=== PATIENT | male | born 1955 | race Caucasian/White ===

== ENCOUNTER 2020-03-28 15:24 | Emergency (ER) | payer OTHER, SELFPAY ==
[2020-03-28 15:25] VITALS: BP 144/94; PULSE 67; RESP 16; TEMP 36.3; O2SAT 97; BMI 31.7
--- NOTE | 2020-03-28 15:45 | ED.VIS.GEN ---
History of Present Illness Chief Complaint: Laceration Informant: Patient Narrative: Patient was cutting wood with a table saw when the piece of wood kicked back and struck him in the left forearm and abdomen. He notes laceration to the forearm and abrasion to the abdomen. Unknown last tetanus. Past Medical History - Allergies and Home Meds Allergies/Adverse Reactions: Allergies bee pollen Allergy (Verified 03/28/20 15:25) Swelling Primary Care Physician: Chema Gonzalez MD [Primary Care Provider] - Smoking Status: Current every day smoker Review of Systems General: Denies: Chills, Fever, Sweats Eyes: Denies: Visual changes - bilaterally, Diplopia ENT: Denies: Rhinorrhea, Sore throat Cardiovascular: Denies: Chest pain, Palpitations Respiratory: Denies: Dyspnea, Cough, Dyspnea on exertion Gastrointestinal: Denies: Abdominal pain, Nausea, Vomiting, Diarrhea, Melena, Hematochezia Genitourinary: Denies: Dysuria, Hematuria, Frequency Musculoskeletal: Reports: Extremity Pain. Denies: Back pain Skin: Reports: Wounds. Denies: Rash Neurological: Denies: Headache, Weakness, Numbness Physical Exam Vital Signs/Narrative: Vital Signs Temp Pulse Resp BP Pulse Ox 03/28/20 15:25 97.4 F L 67 16 144/94 H 97 Inital Vital Signs reviewed: Yes General: Well nourished, Well developed, No Acute Distress Head: Normocephalic, Atraumatic Eyes: Perrl, EOMI ENT: Moist mucous membranes, No rhinorrhea Neck: Supple, Nontender Cardiovascular: Regular rate, Regular rhythm, No murmurs Respiratory: No distress, CTA bilaterally, Chest nontender Abdomen: Soft, Nontender, Nondistended, Normal bowel sounds Back: Nontender, Normal Inspection Extremities: No edema, Tenderness - Mid forearm along the radius demonstrates a 5 cm hematoma with about a 5 cm skin tear. Painful range of motion. Skin: Normal color, No rash, Trauma - Superficial abrasion to the left abdomen. No pain with deep palpation. Neurological: Alert, Oriented x3, Cranial nerves II-XII grossly intact, Normal Strength, Normal Sensation Psychological: Normal affect, Normal Mood Diagnostic/Tx/Re-eval - Medical Decision Making X-rays were negative for fracture. Adacel was given. Wound was cleansed and dressed. Be discharged home with supportive care return if worsening or concerns ED Disposition - Plan for ED Patient: Disposition: Home or Assisted Living Diagnosis: Skin tear of forearm without complication, Traumatic hematoma of left forearm, Abdominal wall abrasion Instructions: ED AVULSION LACERATION Referrals: Chema Gonzalez MD [Primary Care Provider] - 1 Week if not improving
--- NOTE | 2020-03-28 15:50 | RAD_ITS ---
STUDY: X-RAY - LEFT RADIUS AND ULNA REASON FOR EXAM: Male, 64 years old. injury to left forearm. injury was from debris from table saw today. laceration is on posterior portion of forearm. TECHNIQUE: No view(s) of the forearm. COMPARISON: None. FINDINGS: No acute fracture or dislocation. Remote ununited ulnar styloid fracture. Joint spaces are well-maintained. There is marked dorsal soft tissue swelling. No demonstrated foreign body. RAD/Forearm 2 Views IMPRESSION: Soft tissue swelling, otherwise no acute findings. Remote ununited ulnar styloid fracture. Electronically Signed: Mary Jung MD at 16:30 EDT Tel , Service support ,
[2020-03-28] MEDS: Diphth,Pertuss(Acell),Tet Vac 0.5 ML Vial IM (16:00)
== END 2020-03-28 16:31 | disposition home or self-care (01) ==
PROVIDERS: Emergency Provider Emergency Medicine; PCP Family Medicine
DX: S51.812A Laceration without foreign body of left forearm, initial encounter (principal); S30.811A Abrasion of abdominal wall, initial encounter; W20.8XXA Other cause of strike by thrown, projected or falling object, initial encounter; Y93.89 Activity, other specified; Y92.9 Unspecified place or not applicable; Y99.9 Unspecified external cause status; Z23 Encounter for immunization; F17.200 Nicotine dependence, unspecified, uncomplicated
CPT/HCPCS: 73090; 90471; 90715; 99282

== ENCOUNTER 2020-05-16 20:54 | Emergency (ER) | payer OTHER, SELFPAY ==
[2020-05-16 20:55] VITALS: BP 130/83; PULSE 65; RESP 18; TEMP 36.8; O2SAT 97; BMI 33.5
[2020-05-16 21:01] VITALS: BP 130/83; PULSE 65; RESP 18; TEMP 36.8; O2SAT 97
--- NOTE | 2020-05-16 21:20 | RAD_ITS ---
STUDY: X-RAY CHEST REASON FOR EXAM: Male, 64 years old. Cough, lightheaded, dizzy. TECHNIQUE: 1 view COMPARISON: None. FINDINGS: The lungs are clear and expanded. There is no demonstrated pleural abnormality. Normal size heart. Normal mediastinum and marisela. Normal visualized pulmonary arteries. Mild plaque in elongation of the thoracic aorta. Degenerative changes of the thoracic spine with a mild dextrocurvature. Normal visualized ribs, clavicles, and shoulders. There is no demonstrated abnormality of the visualized soft tissue structures of the upper abdomen. RAD/Chest 1 View (Portable) IMPRESSION: No acute cardiopulmonary findings. Negative for consolidation, atelectasis, other infiltrates, pleural effusion or cardiomegaly. Electronically Signed: Chel Jennings MD at 22:56 EDT , Service support ,
[2020-05-16 21:31] LABS: Absolute Lymphocyte Count 1.66 X10^3/uL (0.83-4.51); Absolute Neutrophil Count 5.3 X10^3/uL (2.0-7.7); Basophil# 0.06 X10^3/uL; Basophil% 0.7 % (0-1); Eosinophil# 0.31 X10^3/uL; Eosinophils% 3.9 % (0-5); Hematocrit 47.5 % (40-54); Hemoglobin 15.2 g/dL (13.0-16.5); Lymphocyte # 1.66 X10^3/ul (4.0); Lymphocyte % 20.6 % (19-41); Mean Corpuscular Hgb 30.7 pg (27.0-32.0); Monocyte# 0.66 X10^3/uL; Monocyte% 8.2 % (0-10); NRBC Flagged by Analyzer 0 % (0-5); Neutrophil # 5.31 X10^3/uL (2.7-7.7); Neutrophil % 66.1 % (47-70); Platelet Count 244 K/mm3 (150-450); RBC Distribution Width CV 12.5 % (11.6-14.6); RBC Distribution Width SD 43.9 fl (35.1-43.9); Red Blood Count 4.95 M/mm3 (4.6-6.2)
--- NOTE | 2020-05-16 21:40 | ED.DCSUM_ITS ---
- ER Visit Summary Date of Service: 05/16/20 Chief Complaint: Dizziness History of Present Illness: The patient is a 64 M who presents with dizziness that has been getting worse over the past 9 days. Patient states he feels lightheaded and dizzy. Patient states he also feels weak and tired. Patient states he had a recent Covid test which was negative. Patient admits to a cough with some green sputum. Patient admits to some chest pain but denies any palpitations. Patient admits to some rhinorrhea. Patient denies any nausea or vomiting. Patient denies any fevers or chills. Physical Examination: Vital signs are stable. Patient is afebrile. Patient is in no acute distress. Oral mucosa is pink and moist. Neck is supple. Trachea is midline. There is no JVD noted. Heart was regular rate and rhythm. Lungs have mild rales in the bases. There is good respiratory effort noted. Abdomen is soft. Bowel sounds are normal. There is no tenderness. There is no rebound or guarding noted. Skin is warm dry. Cranial nerves II through XII are intact. There are no focal motor or sensory deficits noted. Extremities are intact. There is no calf tenderness or edema. Test Results: EKG showed normal sinus rhythm with a rate of 64. There are no ac nury ST or T wave changes. There are no prior EKGs available for comparison. Portable chest x-ray is obtained. There is no acute cardiopulmonary process. This was interpreted by the radiologist and reviewed by myself. CBC, comprehensive metabolic profile, troponin were obtained were all within normal limits. Emergency Department Course and Treatment: Patient was given IV fluids. Patient is feeling better on reevaluation. Patient was advised of his findings. Patient was instructed to follow-up with his primary care physician in 5 to 7 days. Patient was instructed to take Tylenol or ibuprofen as needed for pain or fever. Patient and family understood and were agreeable with the plan. All questions were answered. Disposition: Discharge home Impression: Viral illness This note was generated with [employer] dictation software. It may contain incorrect words, spelling, and punctuation that were not noted in review of the chart prior to signing ED Disposition - Plan for ED Patient: Disposition: Home or Assisted Living Diagnosis: Viral illness Instructions: ED Viral Syndrome Referrals: Chema Gonzalez MD [STAFF PHYSICIAN] - 5-7 Days
[2020-05-16] MEDS: 0.9% Normal Saline 1,000 ML 1000 ML IV (21:41)
[2020-05-16 21:49] LABS: ALB/GLOB Ratio 0.9 RATIO (0.9-2.4); AST(SGOT) 10 U/L (15-37); Alanine Aminotransfer ALT/SGPT 18 U/L (16-61); Albumin, Serum 3.5 g/dL (3.2-5.0); Alkaline Phosphatase 79 U/L (45-117); Anion Gap 3 (5-15); BUN 18 mg/dL (7-18); BUN/Creat Ratio 18.8 RATIO (10-20); Calcium,Total 8.9 mg/dL (8.5-10.1); Chloride 105 mmol/L (98-107); Creatinine, Serum 0.96 mg/dL (0.70-1.30); EST Glomerular Filtration Rate 84 mL/min (>60); Est Glom Filt Rate - Afr Amer 102 mL/min (>60); Estimated Creatinine Clearance 77.74 ml/min; Globulin 3.7 g/dL (2.2-4.2); Glucose 106 mg/dL (74-106); Potassium 3.4 mmol/L (3.5-5.1); Protein, Total 7.2 g/dL (6.4-8.2); Sodium Level 141 mmol/L (136-145)
[2020-05-16 21:50] LABS: Lactic Acid 1.4 mmol/L (0.4-1.9)
[2020-05-16 22:52] VITALS: BP 133/80; PULSE 55; RESP 18; O2SAT 96
[2020-05-16 23:19] VITALS: BP 139/89; PULSE 58; RESP 18; O2SAT 95
== END 2020-05-16 23:35 | disposition home or self-care (01) ==
PROVIDERS: Emergency Provider Emergency Medicine; PCP Family Medicine
DX: B34.9 Viral infection, unspecified (principal); R05 Cough; J34.89 Other specified disorders of nose and nasal sinuses; R07.9 Chest pain, unspecified; M54.2 Cervicalgia; R51.9 Headache, unspecified; E03.9 Hypothyroidism, unspecified; Z72.0 Tobacco use; Z79.899 Other long term (current) drug therapy
CPT/HCPCS: 71045; 80053; 83605; 84484; 85025; 87040; 93005; 96360; 99285; J7030; A4216

== ENCOUNTER 2021-11-02 16:01 | Emergency (ER) | payer MEDICARE, BC, SELFPAY ==
[2021-11-02 16:01] VITALS: BP 148/84; PULSE 67; RESP 14; TEMP 36.2; O2SAT 95; BMI 30.9
--- NOTE | 2021-11-02 16:31 | RAD_ITS ---
STUDY: XR Shoulder Min 2 Views REASON FOR EXAM: Male, 66 years old. PAIN TECHNIQUE: XR Shoulder Min 2 Views RIGHT COMPARISON: None. FINDINGS: Normal glenohumeral articulation. There is degenerative arthrosis of the acromioclavicular joint without inferior osseous spur formation. Normal acromion. Old healed distal clavicle fracture. Normal humeral head and visualized proximal humerus. The soft tissue structures are unremarkable. Normal visualized pulmonary apex. RAD/Shoulder min 2 Views IMPRESSION: There are no acute findings of the shoulder. Electronically Signed: Armin Parson MD at 16:55 EDT ,
--- NOTE | 2021-11-02 16:32 | EDS_ITS ---
HPI History of Present Illness Chief Complaint: Upper Extremity Injury Narrative Narrative: 66-year-old male presenting with right shoulder pain. He states he fell from about 3 feet high. He fell directly onto his right side. He states he has pain in the right shoulder and is having trouble moving it secondary to pain. He has distant history of right shoulder surgery. Patient denies head injury, LOC. He has no neck pain. [facility] Medical History High cholesterol Hypothyroidism Home Medications atorvastatin 20 mg PO QHS 05/16/20 [History Last Taken Unknown] levothyroxine 175 mcg PO DAILY 05/16/20 [History Last Taken Unknown] meloxicam 15 mg PO BID 05/16/20 [History Last Taken Unknown] Allergy/AdvReac Type Severity Reaction Status Date / Time bee pollen Allergy Swelling Verified 11/02/21 16:03 Social History Smoking Status: Current every day smoker tobacco type: cigarettes ROS ROS ED Constitutional Constitutional ED: Denies chills or fever(s) Eyes Eyes: Denies blurry vision or diplopia ENT ENT ED: Denies rhinorrhea or sore throat Cardiovascular Cardiovascular: Denies chest pain or palpitations Respiratory/Chest Respiratory/Chest: Denies cough or dyspnea Gastrointestinal Gastrointestinal: Denies abdominal pain, nausea or vomiting Genitourinary Genitourinary ED: Denies dysuria or hematuria Musculoskeletal Musculoskeletal: Reports other Details: Right shoulder pain ; Denies back pain or neck pain Integumentary Denies abscess or rash Neurologic Neurologic: Denies headache(s), paresthesias or weakness EXAM Physical Exam Const Vital Signs: 11/02/21 16:01 Temperature 97.2 F L Temperature Source Temporal Pulse Rate 67 Respiratory Rate 14 Blood Pressure 148/84 H Blood Pressure Mean 105 Pulse Ox 95 Oxygen Delivery Method Room Air Positive well nourished General Appearance ED: NAD HEENT normocephalic and atraumatic Eyes PERRL and EOMs intact bilaterally Neck full ROM and supple General: Negative for tenderness Chest Wall Chest Narrative: Tenderness palpation right upper chest wall adjacent to the right lateral. Resp normal respiratory effort and clear to auscultation bilaterally Cardio regular rate and regular rhythm Extremity Extremity Narrative: Tenderness palpation at the right AC joint. Right proximal humerus is nontender. There is no tenderness to the clavicle except for at the lateral abdomen. No skin tenting. Limited range of motion right shoulder secondary to pain. Neuro oriented x3 and CN's II-XII intact bilaterally Sensorium / Orientation: alert Psych mental status grossly normal Skin Lesions: no lesions Rashes: no rashes MDM MDM MDM Narrative Medical decision making narrative: 66-year-old male presenting with right shoulder pain after mechanical fall. He denies head injury or LOC. He states he has pain with movement of the right shoulder. I obtained x-rays of the right shoulder and on my interpretation there are no acute fractures or subluxation. I did also include imaging of the right clavicle and this is also without fracture. The radiologist does agree. Patient declined analgesia in the ER. Patient counseled that he does not have any acute fractures that are noted. He does not want any thing stronger than Tylenol or ibuprofen for pain. He is counseled to follow-up with his PCP to ensure resolution. He can return precautions. Impression: 1. Mechanical fall 2. Right shoulder contusion Discharge Plan Triage Chief Complaint: Upper Extremity Injury ED Provider: Nemesio Coreas Dx/Rx/DC Orders Instructions: ED Shoulder Sprain Prescriptions: No Action levothyroxine 175 MCG tablet 175 mcg PO DAILY RF: 0 atorvastatin 20 MG tablet 20 mg PO QHS RF: 0 meloxicam 15 MG tablet 15 mg PO BID RF: 0 Primary Care Provider: Onesimo Ramirez Referrals: Onesimo Ramirez MD [Primary Care Provider] - Disposition Disposition: Home, Self Care
--- NOTE | 2021-11-02 16:35 | RAD_ITS ---
EXAM: XR RIGHT CLAVICLE COMPLETE, 2 OR MORE VIEWS CLINICAL INDICATION: pain TECHNIQUE: Frontal and lordotic views of the right clavicle. This report was created using [employer] report generation technology. COMPARISON: None. FINDINGS: BONES/JOINTS: Healed right clavicle fracture. Degenerative arthrosis of the right acromioclavicular joint. No sclerotic or destructive changes observed. SOFT TISSUES: Unremarkable. No soft tissue swelling or gas. No radiopaque foreign body. RAD/Clavicle IMPRESSION: No acute findings. Electronically Signed: Armin Parson MD at 16:53 EDT Reading Location ID and State: [facility] / [place] , Service support ,
[2021-11-02 18:08] VITALS: BP 114/80; PULSE 60; RESP 18; TEMP 36.9; O2SAT 93
== END 2021-11-02 18:51 | disposition home or self-care (01) ==
PROVIDERS: Emergency Provider Student in an Organized Health Care Education/Training Program; PCP Family Medicine; Visit Provider Student in an Organized Health Care Education/Training Program
DX: S40.011A Contusion of right shoulder, initial encounter (principal); W17.89XA Other fall from one level to another, initial encounter; E78.00 Pure hypercholesterolemia, unspecified; E03.9 Hypothyroidism, unspecified; F17.210 Nicotine dependence, cigarettes, uncomplicated; Z79.1 Long term (current) use of non-steroidal anti-inflammatories (NSAID); Z79.890 Hormone replacement therapy
CPT/HCPCS: 73000; 73030; 99282

== ENCOUNTER 2025-02-22 20:10 | Emergency (ER) | payer MEDICARE, BC, SELFPAY ==
--- NOTE | 2025-02-22 | RAD_ITS ---
PROCEDURE: FINGER(S) MIN 2 VIEWS 02/22/2025 REASON FOR EXAM: SECOND FINGER, FALL, PAIN TECHNIQUE: FINGER(S) MIN 2 VIEWS Laterality: Right COMPARISON: No FINDINGS: Scattered osteoarthritis. 2nd digit soft tissue swelling. Acute dorsal dislocation, PIP joint. Suspected displaced fracture, base of middle phalange, volar plate. RAD/Finger(s) Min 2 Views IMPRESSION: 2nd digit PIP joint fracture-dislocation. Reading [facility]
[2025-02-22 20:11] VITALS: BP 135/86; PULSE 60; RESP 18; TEMP 36.2; O2SAT 97; BMI 30.8
--- OUTSIDE RECORDS SUMMARY | 2025-02-22 20:40 | XMS RPT_ITS | CCD ---
Author Organization [facility] Care Team Providers Care Mobile Service Rv Technician Name Role Phone Mark Ramirez MD Primary Care Provider Mark Ramirez MD Primary Care Provider Luz Mac RN Unavailable Unavailable Danna Gomez MD Unavailable Luz Mac RN Unavailable Unavailable Mark Ramirez MD Primary Care Provider [place] GEOGRAPHY DEPARTMENT CHAIR.Migdalia VARGAS Unavailable Edward GEOGRAPHY DEPARTMENT CHAIR.Vikram VARGAS Unavailable Elderbroludmila Referring Unavailable Elderbrock, Primary Care Unavailable Haider Stevens Attending Unavailable Luz Mac RN Unavailable Unavailable [place] GEOGRAPHY DEPARTMENT CHAIR.Migdalia VARGAS Unavailable Unavail able ELDERBROCK, D Primary Care Unavailable DOSHOBHA, ESHA Referring Unavailable ELDERBROCK, D Primary Care Unavailable DOOKHAN, ESHA Referring Unavailable TWILA GLASER Referring Unavailable ELDERBROCK, D Primary Care Unavailable PROVIDER, UNKNOWN Admitting Unavailable PROVIDER, UNKNOWN Attending Unavailable ELDERBROCK, D Primary Care Unavailable DOOKHAN, ESHA Referring Unavailable ELDERBROCK, D Primary Care Unavailable [place] GEOGRAPHY DEPARTMENT CHAIR.Migdalia VARGAS Unavailable KEITH GALO Attending Unavailable ELDERBROCK, D Primary Care Unavailable DOOKHAN, ESHA Attending Unavailable ELDERBROCK, D Referring Unavailable ELDERBROCK, D Primary Care Unavailable ELDERBROCK, D Attending Unavailable ELDERBROCK, D Primary Care Unavailable ELDERBROCK, D Referring Unavailable ELDERBROCK, D Primary Care Unavailable JUDSON ALVES Attending Unavailable SIMA MAYS Referring Unavailable ELDERBROCK, D Primary Care Unavailable SIMA MAYS Attending Unavailable LONG JUDSON Giulia Referring Unavailable ELDERBROCK, D Primary Care Unavailable HARPSTER, MADINA Referring Unavailable ELDERBROCK, D Primary Care Unavailable HARPSTER, MADINA Attending Unavailable HARPSTER, MADINA Referring Unavailable ELDERBROCK, D Primary Care Unavailable HARPSTER, MADINA Referring Unavailable ELDERBROCK, D Primary Care Unavailable HARPSTER, MADINA Referring Unavailable ELDERBROCK, D Primary Care Unavailable HARPSTER, MADINA Referring Unavailable ELDERBROCK, D Primary Care Unavailable TWILA GLASER Attending Unavailable ELDERBROCK, D Primary Care Unavailable ELDERBROCK, D Referring Unavailable ELDERBROCK, D Primary Care Unavailable ELDERBROCK, D Attending Unavailable ELDERBROCK, D Primary Care Unavailable Jory LEDA.WATER PUMP INSTALLER, Migdalia Jimenez Unavailable Allergies Allergy Classification Reported Allergen(s) Allergy Type Date of Onset Reaction(s) Facility (20 sources) Bees; Translations: [BEES] Allergy to substance 10-14-2005 Swelling [facility] Work Phone: (1 source) Bee pollen Drug Allergy 11-02-2021 Swelling [facility] Work Phone: (1 source) Bee pollen Drug allergy (disorder) 07-04-2024 [facility] Repository Medications Current Medications Medication Drug Class(es) Dates Sig (Normalized) Sig (Original) acetaminophen 325 mg oral tablet (20 sources) Start: 09-22-2021 take 2 tablets by mouth every four hours as needed acetaminophen (TYLENOL) 325 mg tablet Take 2 tablets by mouth every 4 hours as needed for pain or fever (specify). 09/22/2021 Active Comment on above: Take 2 tablets by mo [facility] every 4 hours as needed for pain or fever (specify). [id number] 200 actuat albuterol 0.09 mg/actuat metered dose inhaler (20 sources) beta2-Adrenergic Agonist Start: 11-12-2022 End: 08-13-2024 take 2-4 puff(s) by inhalation every six hours as needed for wheezing albuterol HFA (PROVENTIL HFA, VENTOLIN HFA) 90 mcg/actuation inhaler Indications: Smoker Shake well then inhale 2 to 4 puffs as instructed every 6 hours as needed for wheezing/shortness of breath. 3 Each 3 08/13/2024 Active Start: 10-29-2022 End: 11-12-2022 take 2-4 puff(s) by inhalation every six hours as needed for wheezing albuterol HFA (PROVENTIL HFA, VENTOLIN HFA) 90 mcg/actuation inhaler Shake well then inhale 2 to 4 puffs as instructed every 6 hours as needed for wheezing/shortness of breath. 8.5 g 5 10/29/2022 11/12/2022 Discontinued Start: 06-30-2021 End: 10-28-2022 take 2-4 puff(s) by inhalation every six hours as needed for wheezing albuterol HFA (PROVENTIL HFA, VENTOLIN HFA) 90 mcg/actuation inhaler INHALE 2-4 PUFFS INSTRUCTED EVERY 6 HOURS NEEDED FOR WHEEZING/SHORTNESS OF BREATH. 8.5 Each 5 06/30/2021 10/28/2022 Discontinued Start: 05-05-2021 End: 06-30-2021 take 2-4 puff(s) by inhalation every six hours as needed for wheezing albuterol HFA (PROVENTIL HFA, VENTOLIN HFA) 90 mcg/actuation inhaler Inhale 2-4 Puffs as instructed every 6 hours as needed for wheezing/shortness of breath. 8 g 05/05/2021 06/30/2021 Discontinued Comment on above: INHALE 2-4 PUFFS INSTRUCTED EVERY 6 HOURS NEEDED FOR WHEEZING/SHORTNESS OF BREATH. Shake well then inha le 2 to 4 puffs as instructed every 6 hours as needed for wheezing/shortness of breath. atorvastatin 80 mg oral tablet (20 sources) HMG-CoA Reductase Inhibitor Start: End: take 1 tablet by mouth once daily at bedtime atorvastatin (LIPITOR) 80 mg tablet Indications: Mixed hyperlipidemia Take 1 tablet by mouth daily at bedtime. 90 tablet 3 11/22/2024 Active Start: 10-06-2021 End: 04-04-2022 take 1 tablet by mouth once daily at bedtime atorvastatin (LIPITOR) 80 mg tablet Take 1 tablet by mouth daily at bedtime. 90 tablet 1 10/06/2021 Active Start: 05-16-2020 End: 09-26-2021 take 1 tablet by mouth once daily atorvastatin (LIPITOR) 20 mg tablet Indications: Mixed hyperlipidemia Take 1 tablet by mouth once daily. 90 tablet 06/11/2020 01/15/2021 Discontinued Comment on above: Take 1 tablet by laurita th daily at bedtime. TAKE 1 TABLET BY LAURITA TH EVERYDAY AT BEDTIME cephalexin 500 mg oral capsule (3 sources) Cephalosporin Antibacterial Start: End: take 1 capsule by mouth four times daily cephALEXin (KEFLEX) 500 mg capsule Indications: Disorder of left ear lobe Take 1 capsule by mouth four times daily for 5 days. 20 capsule 0 11/10/2021 11/15/2021 Active Comment on above: Take 1 capsule by mo ut four times daily for 5 days. ezetimibe 10 mg oral tablet (20 sources) Dietary Cholesterol Absorption Inhibitor Start: End: take 1 tablet by mouth once daily ezetimibe (ZETIA) 10 mg tablet Indications: Coronary artery disease due to lipid rich plaque Take 1 tablet by mouth once daily. 30 tablet 11 06/11/2024 06/11/2025 Active finasteride 5 mg oral tablet (20 sources) 5-alpha Reductase Inhibitor Start: End: take 1 tablet by mouth once daily finasteride (PROSCAR) 5 mg tablet Indications: Benign prostatic hyperplasia with urinary obstruction Take 1 tablet by mouth once daily. 90 tablet 3 12/26/2023 Active Comment on above: TAKE 1 TABLET BY LUARITA TH EVERY DAY Take 1 tablet by laurita th once daily. 30 actuat fluticasone furoate 0.1 mg/actuat / umeclidinium 0.0625 mg/actuat / vilanterol 0.025 mg/actuat dry powder inhaler (9 sources) Anticholinergic, Corticosteroid, beta2-Adrenergic Agonist Start: take 1 puff(s) by inhalation once daily fluticasone-umeclidi n-vilanter (TRELEGY ELLIPTA) 100-62.5-25 mcg inhalation powder Inhale 1 Puff as instructed once daily. 1 Each 5 09/17/2024 Active levothyroxine sodium 0.175 mg oral tablet (20 sources) l-Thyroxine Start: 024 End: 025 take 1 tablet by mouth once daily for thyroid dysfunction levothyroxine (SYNTHROID) 175 mcg tablet Indications: Acquired hypothyroidism Take 1 tablet by mouth once daily. Take on empty stomach. For thyroid 90 tablet 3 11/22/2024 Active Start: 11-10-2021 End: 11-25-2023 take 1 tablet by mouth once daily for thyroid dysfunction levothyroxine (SYNTHROID) 150 mcg tablet Indications: Acquired hypothyroidism Take 1 tablet by mouth once daily. Take on empty stomach. For thyroid 90 tablet 3 05/14/2022 11/12/2022 Discontinued Start: 05-16-2020 End: 11-10-2021 take 1 tablet by mouth once daily levothyroxine (SYNTHROID) 175 mcg tablet Indications: Hypothyroidism, unspecified type Take 1 tablet by mouth once daily. 90 tablet 06/11/2020 12/22/2020 Discontinued Comment on above: Take 1 tablet by laurita th once daily. Take 1 tablet by laurita th once daily. Take on empty stomach. For thyroid meloxicam 15 mg oral tablet (1 source) Nonsteroidal Anti-inflammatory Drug Start: 0 take 15 mg by mouth twice daily Meloxicam Active 15 MG PO TWICE A DAY May 16, 2020 9:06pm metoprolol tartrate 25 mg oral tablet (20 sources) beta-Adrenergic Verna Start: 2 End: 5 take 1 tablet by mouth twice daily metoprolol tartrate, short acting, (LOPRESSOR) 25 mg tablet Indications: Essential hypertension, benign Take 1 tablet by mouth two times a day. 180 tablet 3 11/18/2023 11/17/2024 Active Comment on above: Take 1 tablet by laurita th twice daily. mupirocin 0.02 mg/mg topical ointment (3 sources) RNA Synthetase Inhibitor Antibacterial Start: 2 End: 2 mupirocin (BACTROBAN) 2 % ointment Apply 0.5 inch with cotton swab (Q-tip) to each nostril in the morning and evening for 5 days prior to and including day of surgery. 22 g 0 06/07/2022 06/25/2022 Active Comment on above: Apply 0.5 inch with cotton swab (Q-tip) to each nostril in the morning and evening for 5 days prior to and including day of surgery. prasugrel 10 mg oral tablet (20 sources) P2Y12 Platelet Inhibitor Start: End: take 1 tablet by mouth once daily, then take 1 tablet by mouth once daily prasugrel (EFFIENT) 10 mg tab Indications: Essential hypertension, benign Take 1 tablet by mouth once daily. Start with 60 mg (6 tablets) loading dose after you stop brilinta, then continue with 1 tablet (10 mg) once daily thereafter. 90 tablet 3 12/26/2023 Active Comment on above: Take 1 tablet by laurita th once daily. Start with 60 mg loading dose after you stop brilinta, then 10 mg daily Take 1 tablet by laurita th once daily. Start with 60 mg (6 tablets) loading dose after you stop brilinta, then continue with 1 tablet (10 mg) once daily thereafter. varenicline 1 mg oral tablet (11 sources) Partial Cholinergic Nicotinic Agonist Start: End: take 0.5 tablet by mouth once daily, then take 0.5 tablet by mouth twice daily, then take 1 tablet by mouth twice daily varenicline (CHANTIX) 1 mg tablet Indications: Cigarette smoker TAKE 0.5 TABLETS BY MOUTH ONCE DAILY FOR 3 DAYS, THEN 0.5 TABLETS TWO TIMES A DAY FOR 4 DAYS, THEN 1 TABLET TWO TIMES A DAY FOR 23 DAYS. 56 tablet 1 11/13/2024 11/22/2024 Discontinued (Discontinued by Patient) Start: 10-17-2024 End: 12-16-2024 varenicline (CHANTIX) 1 mg t ablet Indications: Cigarette smoker Take 1 tablet by mouth two times a day. Patient should start on October 17, 2024. 60 tablet 1 10/17/2024 11/22/2024 Discontinued (Discontinued by Patient) Start: 09-17-2024 End: 10-17-2024 take 0.5 tablet by mouth once daily, then take 0.5 tablet by mouth twice daily, then take 1 tablet by mouth twice daily varenicline (CHANTIX) 1 mg tablet Indications: Cigarette smoker Take 0.5 tablets by mouth once daily for 3 days, THEN 0.5 tablets two times a day for 4 days, THEN 1 tablet two times a day for 23 days. 52 tablet 09/17/2024 Active Start: 06-11-2020 End: 07-17-2020 take 1 tablet by mouth once daily, then take 1 tablet by mouth twice daily, then take 1 tablet by mouth twice daily varenicline (CHANTIX STARTING MONTH BOX) 0.5 mg (11)- 1 mg (42) tablet Take 1 tablet (0.5 mg) by mouth once daily for 3 days, then 1 tablet (0.5 mg) twice daily for 4 days, then one tablet (1 mg) twice daily. 53 tablet 06/11/2020 07/17/2020 Discontinued Completed/Discontinued Medications Medication Drug Class(es) Dates Sig (Normalized) Sig (Original) acetaminophen 325 mg / oxyCODONE hydrochloride 5 mg oral tablet (20 sources) Opioid Agonist Start: 06-25-2022 End: 11-12-2022 take 1-2 tablets by mouth every four hours as needed for pain oxyCODONE-acetamin ophen (PERCOCET) 5-325 mg tablet Indications: S/P reverse total shoulder arthroplasty, right Take 1-2 tablets by mouth every 4 hours as needed for pain. 28 tablet 06/25/2022 11/12/2022 Discontinued Comment on above: Take 1-2 tablets by mouth every 4 hours as needed for pain. apixaban 5 mg oral tablet (4 sources) Factor Xa Inhibitor Start: 05-01-2021 End: 05-07-2021 take 1 tablet by mouth twice daily apixaban (ELIQUIS) 5 mg tab(s) Take 1 tablet by mouth twice daily. 180 tablet 3 05/01/2021 05/07/2021 Discontinued Start: 06-11-2020 End: 09-08-2020 take 1 tablet by mouth twice daily, then take 2 tablets by mouth twice daily, then take 1 tablet by mouth twice daily apixaban (ELIQUIS) 5 mg tab(s) Take 1 tablet by mouth twice daily. Take 2 tablets by mouth twice a day X 7 days and then take 1 tablet by mouth twice a day. 180 tablet 06/11/2020 09/08/2020 Discontinued Start: 05-20-2020 End: 06-11-2020 take 2 tablets by mouth twice daily, then take 1 tablet by mouth twice daily apixaban (ELIQUIS) 5 mg tab(s) Take 2 tablets by mouth twice a day X 7 days and then take 1 tablet by mouth twice a day. 74 tablet 05/20/2020 06/11/2020 Discontinued aspirin 81 mg chewable tablet (20 sources) Platelet Aggregation Inhibitor, Nonsteroidal Anti-inflammatory Drug Start: 11-10-2021 End: 06-07-2022 take 1 tablet by mouth twice daily aspirin 81 mg chewable tablet Indications: Mixed hyperlipidemia , 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 Take 1 tablet by mouth twice daily. 0 11/10/2021 06/07/2022 Discontinued Start: 10-06-2021 End: 10-06-2022 take 1 tablet by mouth once daily aspirin 81 mg chewable tablet Take 1 tablet by mouth once daily. 90 tablet 3 10/06/2021 11/10/2021 Discontinued Comment on above: Take 1 tablet by laurita th once daily. Take 1 tablet by laurita th twice daily. betamethasone 3 mg/ml / betamethasone acetate 3 mg/ml injectable suspension (2 sources) Corticosteroid Start: 02-18-2022 End: 02-18-2022 betamethasone acetate-betamethasone sodium phosphate 6 mg injection (CELESTONE) Start: 01-07-2022 End: 01-07-2022 betamethasone acetate-betame thasone sodium phosphate 6 mg injection (CELESTONE) calcium chloride 0.0014 meq/ml / potassium chloride 0.004 meq/ml / sodium chloride 0.103 meq/ml / sodium lactate 0.028 meq/ml injectable solution (1 source) Start: 06-28-2024 End: 06-28-2024 take 30 mL intravenously every hour 30 mL/hr, INTRAVENOUS, CONTINUOUS, Starting on Vickie 06/28/24 at 0800, Until Vickie 06/28/24 at 0846, Preprocedure diphenhydrAMINE (1 source) Histamine-1 Receptor Antagonist Start: 06-28-2024 End: 06-28-2024 12.5-50 mg, INTRAVENOUS, DIRECTED, Starting on Vickie 06/28/24 at 0830, Until Vickie 06/28/24 at 1229, DOSING DIRECTED BY PHYSICIAN FOR PROCEDURAL SEDATION ONLY, Intraprocedure docusate sodium 100 mg oral capsule (20 sources) Start: 06-25-2022 End: 11-12-2022 take 1 capsule by mouth twice daily docusate sodium (COLACE) 100 mg capsule Indications: S/P reverse total shoulder arthroplasty, right Take 1 capsule by mouth twice daily. 30 capsule 06/25/2022 11/12/2022 Discontinued Comment on above: Take [address] [facility] twice daily. doxycycline hyclate 100 mg oral tablet (1 source) Tetracycline-cl ass Drug Start: 05-05-2021 End: 05-15-2021 take 1 tablet by mouth twice daily doxycycline (VIBRA-TABS) 100 mg tablet Take 1 tablet by mouth twice daily for 10 days. 20 tablet 05/05/2021 05/15/2021 1 ml fentaNYL 0.05 mg/ml injection (1 source) Opioid Agonist Start: 06-28-2024 End: 06-28-2024 25-100 mcg, INTRAVENOUS, DIRECTED, Starting on Vickie 06/28/24 at 0830, Until Vickie 06/28/24 at 1229, DOSING DIRECTED BY PHYSICIAN FOR PROCEDURAL SEDATION ONLY, Intraprocedure iv contrast (will be provided with radiology test) (1 source) Start: 06-11-2020 End: 06-12-2020 iv contrast (will be provided with radiology test) CT Chest W -Inject, intravenously, once for 1 dose.No IV access, insert saline lock prior to the beginning of sedation, infusion, injection of imaging exam. Discontinue saline lock post exam. If Pt. has a central line or IVAD, may access for administration according to line specific nursing protocol. Once exam is complete flush line and de-access according to line specific nursing protocol in the CT contrast administration guidelines link. 1 Each 06/11/2020 06/12/2020 10 ml lidocaine hydrochloride 10 mg/ml injection (2 sources) Antiarrhythmic, Amide Local Anesthetic Start: 02-18-2022 End: 02-18-2022 lidocaine (PF) 10 mg/mL (1 %) 4 mL injection (XYLOCAINE) Start: 01-07-2022 End: 01-07-2022 lidocaine (PF) 10 mg/mL (1 % ) 4 mL injection (XYLOCAINE) 5 ml midazolam 1 mg/ml injection (1 source) Benzodiazepine Start: 06-28-2024 End: 06-28-2024 1-5 mg, INTRAVENOUS, DIRECTED, Starting on Vickie 06/28/24 at 0830, Until Vickie 06/28/24 at 1229, DOSING DIRECTED BY PHYSICIAN FOR PROCEDURAL SEDATION ONLY, Intraprocedure 24 hr nicotine 0.292 mg/hr transdermal system (20 sources) Cholinergic Nicotinic Agonist Start: 10-06-2021 End: 06-07-2022 nicotine (NICODERM) 7 mg/24 hr Indications: Smoker Apply 1 Patch as directed every 24 hours. 28 Patch 1 10/06/2021 06/07/2022 Discontinued Comment on above: Apply 1 Patch as dir ected every 24 hours. ondansetron 4 mg disintegrating oral tablet (20 sources) Serotonin-3 Receptor Antagonist Start: 06-25-2022 End: 11-12-2022 take 1 tablet by mouth every eight hours as needed for nausea ondansetron orally disintegrating (ZOFRAN ODT) 4 mg disintegrating tablet Indications: S/P reverse total shoulder arthroplasty, right Take 1 tablet by mouth every 8 hours as needed for nausea/vomiting. 30 tablet 1 06/25/2022 11/12/2022 Discontinued Comment on above: Take 1 tablet by [facility] every 8 hours as needed for nausea/vomiting. regadenoson 0.4 mg injection (LEXISCAN) (2 sources) Start: 05-24-2024 End: 05-24-2024 regadenoson 0.4 mg injection (LEXISCAN) Start: 05-24-2024 End: 05-24-2024 0.4 mg, INTRAVENOUS, ONCE, 1 dose, On Vickie 05/24/24 at 1100, Give 0.4 mg (5 mL) over ~10 seconds, followed immediately by a 5 mL saline flush. Wait 10-20 seconds, then administer the radionuclide myocardial perfusion imaging agent. tamsulosin hydrochloride 0.4 mg oral capsule (4 sources) alpha-Adrenergic Verna Start: 06-11-2020 End: 05-07-2021 take 1 capsule by mouth once daily at bedtime tamsulosin ER (FLOMAX) 0.4 mg Indications: BPH with obstruction/lower urinary tract symptoms Take 1 capsule by mouth daily at bedtime. 90 capsule 06/11/2020 05/07/2021 Discontinued Problems Active Problems Problem Classification Problem Date Documented Da te Episodic/Chronic Acute cerebrovascular disease (20 sources) Multiple lacunar infarcts; Translations: [Other cerebral infarction due to occlusion or stenosis of small artery] Onset: 05-21-2020 05-21-2020 Chronic Aortic; peripheral; and visceral artery aneurysms (3 sources) Ascending aorta dilatation; Translations: [Thoracic aortic ectasia] Onset: 05-24-2024 05-16-2024 Chronic Asthma (1 source) Asthma-chronic obstructive pulmonary disease overlap syndrome; Translations: [Asthma with chronic obstructive pulmonary disease (COPD) (HCC)] 08-31-2024 Chronic Chronic obstructive pulmonary disease and bronchiectasis (4 sources) Severe chronic obstructive pulmonary disease; Translations: [Chronic obstructive pulmonary disease, unspecified] Onset: 12-18-2024 09-17-2024 Chronic Coronary atherosclerosis and other heart disease (20 sources) Coronary arteriosclerosis; Translations: [Atherosclerotic heart disease of minto coronary artery without angina pectoris] Onset: 09-20-2021 Resolved: 09-26-2021 09-25-2021 Chronic Diabetes mellitus without complication (3 sources) Increased glucose level; Translations: [Other abnormal glucose] Onset: 11-22-2024 05-13-2023 Episodic Disorders of lipid metabolism (20 sources) Mixed hyperlipidemia; Translations: [Mixed hyperlipidemia] Onset: 10-14-2005 Resolved: 04-26-2011 09-24-2021 Chronic Essential hypertension (20 sources) Benign essential hypertension; Translations: [Essential (primary) hypertension] Onset: 06-16-2022 Chronic Hyperplasia of prostate (20 sources) Benign prostatic hyperplasia; Translations: [Benign prostatic hyperplasia without lower urinary tract symptoms] Onset: 06-11-2014 09-24-2021 Chronic Immunizations and screening for infectious disease (5 sources) Needs influenza immunization; Translations: [Encounter for immunization] Episodic Inflammatory conditions of male genital organs (20 sources) Chronic prostatitis; Translations: [Chronic prostatitis] Onset: 08-16-2016 08-16-2016 Chronic Open wounds of extremities (1 source) Tear of skin; Translations: [Laceration without foreign body of unspecified forearm, initial encounter] Episodic Osteoarthritis (20 sources) Arthritis of shoulder region joint; Translations: [Primary osteoarthritis, unspecified shoulder] Onset: 05-18-2011 05-18-2011 Chronic Other and unspecified benign neoplasm (1 source) Hyperplastic polyp of intestine; Translations: [Polyp of colon] 07-03-2024 Episodic Other bone disease and musculoskeletal deformities (20 sources) Posterior calcaneal exostosis; Translations: [Juvenile osteochondrosis of tarsus, right ankle] Onset: 05-26-2018 05-30-2018 Chronic Other connective tissue disease (3 sources) History of reverse prosthetic total arthroplasty of right shoulder; Translations: [Presence of right artificial shoulder joint] Chronic Other ear and sense organ disorders (1 source) Disorder of pinna; Translations: [Disorder of left external ear, unspecified] Episodic Other gastrointestinal disorders (2 sources) Oropharyngeal dysphagia; Translations: [Dysphagia, oropharyngeal phase] 09-17-2024 Episodic Other gastrointestinal disorders (1 source) Dysphagia, oropharyngeal phase; Translations: [Oropharyngeal dysphagia] Onset: 11-09-2024 Episodic Other lower respiratory disease (2 sources) Cough; Translations: [Cough, unspecified type] 05-13-2023 Episodic Other lower respiratory disease (8 sources) Dyspnea; Translations: [Shortness of breath] 05-16-2024 Episodic Other non-traumatic joint disorders (3 sources) Shoulder pain; Translations: [Pain in right shoulder] Episodic Other non-traumatic joint disorders (4 sources) Chronic pain of right upper limb; Translations: [Pain in right shoulder] Episodic Other nutritional; endocrine; and metabolic disorders (20 sources) Obese class I; Translations: [Obesity, unspecified] Onset: 05-20-2020 09-24-2021 Chronic Other upper respiratory infections (1 source) Viral upper respiratory tract infection; Translations: [Acute upper respiratory infection, unspecified] Episodic Pneumonia (except that caused by tuberculosis or sexually transmitted disease) (2 sources) Bacterial pneumonia; Translations: [Unspecified bacterial pneumonia] 07-29-2020 Episodic Residual codes; unclassified (3 sources) Tobacco user; Translations: [Tobacco use] Episodic Screening and history of mental health and substance abuse codes (4 sources) Patient encounter status; Translations: [Encounter for screening for depression] Onset: 11-22-2024 11-22-2024 Episodic Sprains and strains (5 sources) Traumatic rupture of rotator cuff; Translations: [Strain of muscle(s) and tendon(s) of the rotator cuff of right shoulder, initial encounter] Episodic Substance-related disorders (20 sources) Smoker; Translations: [Nicotine dependence, unspecified, uncomplicated] Onset: 05-06-2020 09-24-2021 Chronic Superficial injury; contusion (2 sources) Abrasion, abdominal wall; Translations: [Abrasion of abdominal wall, initial encounter] Episodic Thyroid disorders (20 sources) Hypothyroidism; Translations: [Hypothyroidism, unspecified] Onset: 10-14-2005 Resolved: 09-25-2021 Chronic Unclassified (1 source) History of colonic polyps; Translations: [History of colonic polyps] Onset: 06-28-2024 Viral infection (1 source) Viral disease; Translations: [Viral infection, unspecified] Episodic Past or Other Problems Problem Classification Problem Date Documented Date Episodic/Chronic Abdominal hernia (20 sources) Umbilical hernia; Translations: [Umbilical hernia without obstruction or gangrene] Onset: 02-26-2009 02-26-2009 Episodic Acute bronchitis (20 sources) Acute bronchitis; Translations: [Acute bronchitis, unspecified] Onset: 09-21-2021 Resolved: 09-24-2021 09-24-2021 Episodic Conditions associated with dizziness or vertigo (20 sources) Lightheadedness; Translations: [Dizziness and giddiness] Onset: 05-19-2020 Resolved: 09-25-2021 09-25-2021 Episodic Fluid and electrolyte disorders (20 sources) Hypokalemia; Translations: [Hypokalemia] Onset: 05-19-2020 Resolved: 09-25-2021 09-25-2021 Episodic Gastritis and duodenitis (20 sources) Gastritis; Translations: [Gastritis, unspecified, without bleeding] Onset: 06-25-2011 Resolved: 12-20-2014 12-20-2014 Episodic Gastroduodenal ulcer (except hemorrhage) (20 sources) H/O: peptic ulcer; Translations: [Personal history of peptic ulcer disease] Onset: 12-21-2023 12-21-2023 Episodic Genitourinary symptoms and ill-defined conditions (20 sources) Increased frequency of urination; Translations: [Frequency of micturition] Onset: 06-11-2014 10-01-2020 Episodic Nutritional deficiencies (20 sources) Undernutrition; Translations: [Mild protein-calorie malnutrition] Onset: 05-20-2020 Resolved: 11-12-2022 05-20-2020 Chronic Other and unspecified benign neoplasm (20 sources) Benign neoplasm of colon; Translations: [Benign neoplasm of colon, unspecified] Onset: 10-21-2006 Resolved: 12-20-2014 12-20-2014 Episodic Other and unspecified benign neoplasm (20 sources) Benign neoplasm of rectum and anal canal; Translations: [Benign neoplasm of rectum] Onset: 06-25-2011 Resolved: 12-20-2014 12-20-2014 Episodic Other and unspecified benign neoplasm (20 sources) History of polyp of colon; Translations: [Personal history of colonic polyps] Onset: 06-28-2024 12-26-2023 Episodic Other and unspecified benign neoplasm (1 source) Polyp of colon; Translations: [Hyperplastic polyp of ascending colon] Onset: 07-05-2024 Episodic Other connective tissue disease (20 sources) Right achilles tendonitis; Translations: [Achilles tendinitis, right leg] Onset: 05-26-2018 08-11-2018 Episodic Other connective tissue disease (20 sources) Calcaneal spur of right foot; Translations: [Calcaneal spur, right foot] Onset: 05-26-2018 Resolved: 06-28-2018 06-28-2018 Episodic Other lower respiratory disease (20 sources) Multiple nodules of lung; Translations: [Other nonspecific abnormal finding of lung field] Onset: 05-20-2020 05-20-2020 Episodic Other lower respiratory disease (2 sources) Shortness of breath; Translations: [SOB (shortness of breath)] Onset: 05-24-2024 Episodic Other lower respiratory disease (1 source) Other nonspecific abnormal finding of lung field; Translations: [Pulmonary nodules] Onset: 05-20-2020 Episodic Other screening for suspected conditions (not mental disorders or infectious disease) (20 sources) Raised prostate specific antigen; Translations: [Elevated prostate specific antigen [PSA]] Onset: 06-11-2014 Resolved: 08-05-2016 08-20-2020 Episodic Other skin disorders (20 sources) Ingrowing nail; Translations: [Ingrowing nail] Onset: 06-09-2007 Resolved: 12-20-2014 12-20-2014 Episodic Pulmonary heart disease (20 sources) H/O: pulmonary embolus; Translations: [Personal history of pulmonary embolism] Onset: 05-19-2020 Resolved: 10-06-2021 09-24-2021 Episodic Residual codes; unclassified (20 sources) Family history of prostate cancer; Translations: [Family history of malignant neoplasm of prostate] Onset: 10-16-2013 10-16-2013 Episodic Residual codes; unclassified (20 sources) History of operative procedure on shoulder; Translations: [Other specified postprocedural states] Onset: 07-02-2022 07-02-2022 Episodic Residual codes; unclassified (20 sources) Postoperative state; Translations: [Other specified postprocedural states] Onset: 08-11-2018 Resolved: 09-25-2021 09-25-2021 Episodic Residual codes; unclassified (20 sources) Viral syndrome; Translations: [Other general symptoms and signs] Onset: 05-19-2020 Resolved: 09-25-2021 09-25-2021 Episodic Residual codes; unclassified (1 source) Tobacco use; Translations: [Tobacco use current] Onset: 08-13-2024 Episodic Spondylosis; intervertebral disc disorders; other back problems (20 sources) Neck pain; Translations: [Cervicalgia] Onset: 11-29-2022 Episodic Results Test Name Value Interpretation Reference Range Facility [facility] 12-31-2024 [facility] Telephone ([facility]) LORENZO REIS ([id number]) 1955 M Date Time Provider Department 12/31/24 MARK RAMIREZ [facility] During your visit today, we recorded the following information about you: Cynthia Chi MA 12/31/2024 2:42 PM Signed Office received fax from [facility] for gabi wrist and hand braces. Spoke with pt, he did not request these. Forms have been discarded. Cynthia Chi MA Allergies As of Date: 12/31/2024 Noted Allergy Reaction BEES 10/14/2005 7 - Swelling Comments: Pt has been through desensitization. Date Reviewed: 12/18/2024 Reviewed by: Keith Galo APRN.WATER PUMP INSTALLER - Fully Assessed Reason for Visit: Forms [913] Cmt: [facility], request for wrist hand orthosis supplies Prescriptions as of 12/31/2024 - levothyroxine (SYNTHROID) 175 mcg tablet Take 1 tablet by mouth once daily. Take on empty stomach. For thyroid - atorvastatin (LIPITOR) 80 mg tablet Take 1 tablet by mouth daily at bedtime. - xlzrddnlbqy-pjtnzvajf-vjjzj ter (TRELEGY ELLIPTA) 100-62.5-25 mcg inhalation powder Inhale 1 Puff as instructed once daily. - albuterol HFA (PROVENTIL HFA, VENTOLIN HFA) 90 mcg/actuation inhaler Shake well then inhale 2 to 4 puffs as instructed every 6 hours as needed for wheezing/shortness of breath. - ezetimibe (ZETIA) 10 mg tablet Take 1 tablet by mouth once daily. - prasugrel (EFFIENT) 10 mg tab Take 1 tablet by mouth once daily. Start with 60 mg (6 tablets) loading dose after you stop brilinta, then continue with 1 tablet (10 mg) once daily thereafter. - finasteride (PROSCAR) 5 mg tablet Take 1 tablet by mouth once daily. - acetaminophen (TYLENOL) 325 mg tablet Take 2 tablets by mouth every 4 hours as needed for pain or fever (specify). Meds Comments as of 10/12/2016: Problem List As Of Date 12/31/2024 Noted Resolved Pure hypercholesterolemia [E78.00] 04/26/2011 Hypothyroidism [E03.9] 10/14/2005 09/25/2021 Mixed hyperlipidemia [E78.2] 10/14/2005 Benign neoplasm of colon [D12.6] 10/21/2006 12/20/2014 Ingrowing nail [L60.0] 06/09/2007 12/20/2014 UMBILICAL HERNIA [K42.9] 02/26/2009 Shoulder arthritis [M19.019] 05/18/2011 Unspecified gastritis and gastroduodenitis with*06/25/2011 12/20/2014 Benign neoplasm of rectum and anal canal [D12.8*06/25/2011 12/20/2014 Family history of prostate cancer [Z80.42] 10/16/2013 Elevated PSA [R97.20] 06/11/2014 BPH (benign prostatic hyperplasia) [N40.0] 06/11/2014 Frequency of micturition [R35.0] 06/11/2014 Acquired hypothyroidism [E03.9] 01/16/2016 Colon cancer screening [Z12.11] 08/05/2016 08/05/2016 Benign non-nodular prostatic hyperplasia [N40.0]08/16/2016 Chronic prostatitis [N41.1] 08/16/2016 Tendonitis, Achilles, right [M76.61] 05/26/2018 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] 05/26/2018 Calcaneal spur, right [M77.31] 05/26/2018 06/28/2018 Post-operative state [Z98.890] 08/11/2018 09/25/2021 Smoker [F17.200] 05/06/2020 History of pulmonary embolism [Z86.711] 05/19/2020 Hypokalemia [E87.6] 05/19/2020 09/25/2021 Flu-like symptoms [R68.89] 05/19/2020 09/25/2021 Lightheadedness [R42] 05/19/2020 09/25/2021 Bilateral pulmonary embolism (HCC) [I26.99] 05/19/2020 10/06/2021 Malnutrition of mild degree (HCC) [E44.1] 05/20/2020 11/12/2022 Obesity, Class I, BMI 30-34.9 [E66.811] 05/20/2020 Pulmonary nodules [R91.8] 05/20/2020 Multiple lacunar infarcts (HCC) [I63.81] 05/21/2020 Nocturia [R35.1] 10/01/2020 Unstable angina (HCC) [I20.0] 09/20/2021 09/25/2021 History of pulmonary embolus (PE) [Z86.711] 09/20/2021 Acute bronchitis [J20.9] 09/21/2021 09/24/2021 2V CAD s/p complex PCI (09/23/21) [I25.10] 09/22/2021 Unstable angina (HCC) [I20.0] 09/26/2021 09/26/2021 Essential hypertension, benign [I10] 06/16/2022 S/P shoulder surgery [Z98.890] 07/02/2022 Neck pain [M54.2] 11/29/2022 History of peptic ulcer disease [Z87.11] 12/21/2023 History of colonic polyps [Z86.0100] 06/28/2024 Encounter Status:Closed by CYNTHIA CHI on 12/31/24 [facility] CNOVon 12-18-2024 CNOV Office Visit (PULMWS ) LORENZO REIS ([id number]) 1955 M Date Time Provider Department 12/18/24 10:00 AM KEITH GALO PULMWS During your visit today, we recorded the following information about you: Pulse Respiration Blood pressure Weight 55/minute 16/minute 104/62 95.3 kg Keith Galo, GEOGRAPHY DEPARTMENT CHAIR.WATER PUMP INSTALLER 12/18/2024 2:55 PM Addendum Pulmonary Medicine Patients name: Lorenzo Reis PCP: Mark Ramirez MD Recording using [employer] software for draft documentation of the visit was discussed with the patient/authorized jewelry sales representative; all questions welcomed and answered. Patient/authorized jewelry sales representative agreed to proceed CC: follow-up HPI: Lorenzo Reis is a 69 year old male current > 50 pack year smoker with PMH significant for hypothyroidism, HLD, h/o PE, CAD s/p stents, PUD, lung nodules. New patient 10/2024 for evaluation of COPD. PFT revealed moderately severe obstruction with lung volumes showing hyperinflation and air trapping. Inhaled therapy increased to Trelegy and PRN Albuterol. Smoking cessation highly encouraged, restarted on Chantix. He presents today for follow-up. Since his MEREDITH, he had a nocturnal assessment which showed signficant desaturations and was started on O2. He also had concerns for aspiration but his esophagram was normal. Prior to Trelegy, he was only using albuterol as needed and did not have a maintenance inhaler. He reports that his dyspnea and cough have improved but are still present. 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 He continues to experience a cough with occasional expectoration of clear phlegm. He denies any episodes of wheezing or chest tightness. He uses albuterol approximately 4 times per week, primarily during stressful situations. This is a significant reduction compared to before starting Trelegy. He denies any recent illnesses, issues with allergies, sinus congestion, or post-nasal drainage. Lorenzo has been actively reducing his smoking and is currently down to about a quarter pack per day. He previously tried Chantix but not finding it helpful. He believes that his smoking cessation efforts are primarily a mental challenge. He has been rinsing his mouth well after using Trelegy and denies any issues with oral sores. He recently received new dentures and reports some irritation in his mouth, which he attributes to the dentures and the presence of stitches that need to be removed. He denies any history of oral thrush. DME: Faby 2L nocturnal O2 PAST MEDICAL HISTORY Diagnosis Date Acute pulmonary embolism (HCC) 06/2020 unknown cause; pt on Eliquis Benign neoplasm of rectum and anal canal CAD (coronary artery disease) s/p stents COPD (chronic obstructive pulmonary disease) (HCC) History of peptic ulcer disease Pure hypercholesterolemia Snoring Tobacco use Unspecified hypothyroidism Allergies: Bees Swelling Comment:Pt has been through desensitization. Medication List Accurate as of December 17, 2024 6:25 PM. If you have any questions, ask your nurse or doctor. CONTINUE taking these medications acetaminophen 325 mg tablet Commonly known as: TYLENOL Take 2 tablets by mouth every 4 hours as needed for pain or fever (specify). albuterol HFA 90 mcg/actuation inhaler Commonly known as: PROVENTIL HFA, VENTOLIN HFA Shake well then inhale 2 to 4 puffs as instructed every 6 hours as needed for wheezing/shortness of breath. atorvastatin 80 mg tablet Commonly known as: LIPITOR Take 1 tablet by mouth daily at bedtime. ezetimibe 10 mg tablet Commonly known as: ZETIA Take 1 tablet by mouth once daily. finasteride 5 mg tablet Commonly known as: PROSCAR Take 1 tablet by mouth once daily. levothyroxine 175 mcg tablet Commonly known as: SYNTHROID Take 1 tablet by mouth once daily. Take on empty stomach. For thyroid prasugrel 10 mg Tab Commonly known as: EFFIENT Take 1 tablet by mouth once daily. Start with 60 mg (6 tablets) loading dose after you stop brilinta, then continue with 1 tablet (10 mg) once daily thereafter. TRELEGY ELLIPTA 100-62.5-25 mcg inhalation powder Generic drug: ilbkmklhzho-sboieezqr-uoawu ter Inhale 1 Puff as instructed once daily. DATA: I personally reviewed and analyzed all labs, radiographs and available pulmonary function testing PFT: 08/2024 Spirometry indicates moderate obstruction. Positive bronchodilator response. Lung volumes (FRC and/or RV) are elevated indicating hyperinflation and air trapping. The diffusion capacity (uncorrected for hemoglobin) is normal. CT Chest: 07/2024 RESULT: Are nodules present? Yes, 1-5 nodules Lung nodule comments: 5 mm left fissural nodule (173) unchanged. 4 mm right fissural nodule (150) unchanged. 3 mm left upper lobe nodule (70) unchanged. 4 mm subpleural lef (more content not included)... Normal [facility] CNOVon 11-22-2024 CNOV Office Visit (FAMPWS ) CHATOLORENZO Black ([id number]) 1955 M Date Time Provider Department 11/22/24 8:20 AM [facility] During your visit today, we recorded the following information about you: Pulse Respiration Blood pressure Weight 60/minute 16/minute 130/84 95.5 kg Mark Ramirez MD 11/22/2024 8:34 AM Signed Chief Complaint Patient presents with: F/U 6 Month HPI Lorenzo Cleaning Chato is a 69 year old male who presents here today for 6 month follow up. Smoking but trying to quit. Former 1 ppd smoker, now smoking 5-6 cigs per day. Denies any bowel, Gi, or urinary issues. Gets up once a night to urinate. Taking Proscar 5 mg daily. PSA lab monitored. Pt no longer follows with any urologists. HTN: Denies checking BP at home, no chest pains, dizziness, or SOB. Taking Effient 10 mg daily. Lipid/CAD/Glucose: Hx of elevated glucose, on no current medications at this time. Monitoring with routine labs. Follows with Cardio Dr. Peng. Had heart catheterization done on 06/05/24. Denies watching his diet, but eats whatever his makes. Denies any exercise, but stays active still working 50 hours a week. Taking Lipitor 80 mg daily and Zetia 10 mg daily. Thyroid: Taking Synthroid 175 mcg daily. Feels stable on current dosage, denies any missed dosages. COPD: Stage 3 Severe; Smoker; follows with Pulm Dr. Glaser. Had PFT testing done. Currently trying to quit smoking on his own, was given Chantix but decided to try to quit on his own. Former 1 ppd smoker, now down to 5-6 cigarettes per day. Currently using Trelegy Ellipta 100-62.5-25 mcg 1 puff daily and Proventil HFA 90 mcg 2-4 puffs every 6 hours prn. Rare use of rescue inhaler. Feels adding the inhaler does help the breathing some. HM - Shingles vaccine through Pharmacy due to Medicare Insurance. Does have Adv Dir/Living Will. Anxiety/Depression screening completed, negative. Declines Covid booster at this time. Past medical history, appointments, medications, allergies reviewed. Previous Medical History PAST MEDICAL HISTORY Diagnosis Date Acute pulmonary embolism (HCC) 06/2020 unknown cause; pt on Eliquis Benign neoplasm of rectum and anal canal CAD (coronary artery disease) s/p stents COPD (chronic obstructive pulmonary disease) (HCC) History of peptic ulcer disease Pure hypercholesterolemia Snoring Tobacco use Unspecified hypothyroidism Previous Surgical History PAST SURGICAL HISTORY Procedure Laterality Date COLONOSCOPY FLX DX W/COLLJ SPEC WHEN PFRMD 06/16/2009 Colonoscopy COLONOSCOPY FLX DX W/COLLJ SPEC WHEN PFRMD 08/05/2016 Colonoscopy COLONOSCOPY FLX DX W/COLLJ SPEC WHEN PFRMD 02/15/2018 multiple adenomatous polyps, repeat in 3 years COLONOSCOPY FLX DX W/COLLJ SPEC WHEN PFRMD 12/23/2020 COLSC FLX W/RMVL OF TUMOR POLYP LESION SNARE TQ 10/21/2006 Large polyp at 50cm, 3 small sessile polyps in low rectosigmoid COLSC FLX W/RMVL OF TUMOR POLYP LESION SNARE TQ 06/25/2011 polyp in rectum DIAGNOSIS/HISTORY left 5th finger, laceration repair HERNIA REPAIR HX PAST SURGICAL HISTORY OF Right 1979 right shoulder Dislocated collar bone, ORIF Dr. Kilgore PAST SURGICAL HISTORY OF N/A 08/20/2020 Prostate biopsy PERCUTANEOUS CORONARY INTERVENTION Bilateral 09/23/2021 Left circumflex and RCA RPR PRIMARY OPEN/PRQ RUPTURED ACHILLES W/GRAFT Right 2018 RPR UMBILICAL HRNA 5 YRS/> REDUCIBLE 07/15/2009 with mesh Family History FAMILY HISTORY Problem Relation Age of Onset Alzheimer's Disease Mother Coronary Artery Disease Father [place] Prostate Cancer Father Colon Cancer Father Heart disease Brother Patient Allergies ALLERGIES Allergen Reactions Bees Swelling Pt has been through desensitization. Current Medications Current Outpatient Medications on File Prior to Visit Medication Sig yfskwfeusgf-lastmcmsi-uzohd ter (TRELEGY ELLIPTA) 100-62.5-25 mcg inhalation powder Inhale 1 Puff as instructed once daily. varenicline (CHANTIX) 1 mg tablet Take 0.5 tablets by mouth once daily for 3 days, THEN 0.5 tablets two times a day for 4 days, THEN 1 tablet two times a day for 23 days. varenicline (CHANTIX) 1 mg tablet Take 1 tablet by mouth two times a day. Patient should start on October 17, 2024. albuterol HFA (PROVENTIL HFA, VENTOLIN HFA) 90 mcg/actuation inhaler Shake well then inhale 2 to 4 puffs as instructed every 6 hours as needed for wheezing/shortness of breath. ezetimibe (ZETIA) 10 mg tablet Take 1 tablet by mouth once daily. prasugrel (EFFIENT) 10 mg tab Take 1 tablet by mouth once daily. Start with 60 mg (6 tablets) loading dose after you stop brilinta, then continue with 1 tablet (10 mg) once daily thereafter. finasteride (PROSCAR) 5 mg tablet Take 1 tablet by mouth once daily. atorvastatin (LIPITOR) 80 mg tablet Take 1 tablet by mouth daily at bedtime. levothyroxine (SYNTHROID) 175 mcg table (more content not included)... Normal [facility] CBC W Auto Differential pane l (Bld)on 11-21-2024 Basophils (Bld) [#/Vol] 0.06 10*3/uL Normal <0.11 [facility] Comment on above: Order Comment: Speci men Type: BLOOD SPECIMENOrdering Facility: [facility] Address: [address] [place] [address] Performed By: #### 5 7021-8 ####[facility] LABCLIA [id number] [facility] [place] [address] [place] Basophils/100 WBC (Bld) 0.7 % Normal [facility] Comment on above: Order Comment: Speci men Type: BLOOD SPECIMENOrdering Facility: [facility] Address: [address] [place] [address] Performed By: #### 5 7021-8 ####[facility] LABCLIA [id number] [place] [address] [place] Differential cell count method Nom (Bld) Auto Normal [facility] Comment on above: Order Comment: Speci men Type: BLOOD SPECIMENOrdering Facility: [facility] Address: [address] [place] [address] Performed By: #### 5 7021-8 ####[facility] LABCLIA [id number] [place] [address] [place] Eosinophils (Bld) [#/Vol] 0.24 10*3/uL Normal <0.46 [facility] Comment on above: Order Comment: Speci men Type: BLOOD SPECIMENOrdering Facility: [facility] Address: [address] [place] [address] Performed By: #### 5 7021-8 ####[facility] LABCLIA [id number] [place] [address] [place] Eosinophils/100 WBC (Bld) 2.9 % Normal [facility] Comment on above: Order Comment: Speci men Type: BLOOD SPECIMENOrdering Facility: [facility] Address: [address] [place] [address] Performed By: #### 5 7021-8 ####[facility] LABCLIA [id number] [place] [address] [place] Erythrocyte distribution width (RBC) [Ratio] 13.0 % Normal 11.5-15.0 [facility] Comment on above: Order Comment: Speci men Type: BLOOD SPECIMENOrdering Facility: [facility] Address: [address] [place] [address] Performed By: #### 5 7021-8 ####[facility] LABIA [id number] [place] [address] [place] Hematocrit (Bld) [Volume fraction] 46.9 % Normal 39.0-51.0 [facility] Comment on above: Order Comment: Speci men Type: BLOOD SPECIMENOrdering Facility: [facility] Address: [address] [place] [address] Performed By: #### 5 7021-8 ####[facility] LABIA [id number] [place] [address] [place] Hemoglobin (Bld) [Mass/Vol] 14.9 g/dL Normal 13.0-17.0 [facility] Comment on above: Order Comment: Speci men Type: BLOOD SPECIMENOrdering Facility: [facility] Address: [address] [place] [address] Performed By: #### 5 7021-8 ####[facility] LABCLIA [id number] [place] [address] [place] Immature granulocytes (Bld) [#/Vol] 0.04 10*3/uL Normal <0.10 [facility] Comment on above: Order Comment: Speci men Type: BLOOD SPECIMENOrdering Facility: [facility] Address: [address] [place] [address] Performed By: #### 5 7021-8 ####[facility] LABCLIA [id number] [place] [address] [place] Immature granulocytes/100 WBC (Bld) 0.5 % Normal [facility] Comment on above: Order Comment: Speci men Type: BLOOD SPECIMENOrdering Facility: [facility] Address: [address] [place] [address] Performed By: #### 5 7021-8 ####[facility] LABCLIA [id number] [place] [address] [place] Lymphocytes (Bld) [#/Vol] 2.87 10*3/uL Normal 1.00-4.00 [facility] Comment on above: Order Comment: Speci men Type: BLOOD SPECIMENOrdering Facility: [facility] Address: [address] [place] [address] Performed By: #### 5 7021-8 ####[facility] LABCLIA [id number] [place] [address] [place] Lymphocytes/100 WBC (Bld) 35.0 % Normal [facility] Comment on above: Order Comment: Speci men Type: BLOOD SPECIMENOrdering Facility: [facility] Address: [address] [place] [address] Performed By: #### 5 7021-8 ####[facility] LABCLIA [id number] [place] [id number] [place] MCH (RBC) [Entitic mass] 29.4 pg Normal 26.0-34.0 [facility] Comment on above: Order Comment: Speci men Type: BLOOD SPECIMENOrdering Facility: [facility] Address: [address] [place] [address] Performed By: #### 5 7021-8 ####[facility] LABCLIA [id number] [place] [id number] [place] MCHC (RBC) [Mass/Vol] 31.8 g/dL Normal 30.5-36.0 [facility] Comment on above: Order Comment: Speci men Type: BLOOD SPECIMENOrdering Facility: [facility] Address: [address] [place] [address] Performed By: #### 5 7021-8 ####[facility] LABCLIA [id number] [place] [address] [place] MCV (RBC) [Entitic vol] 92.5 fL Normal 80.0-100.0 [facility] Comment on above: Order Comment: Speci men Type: BLOOD SPECIMENOrdering Facility: [facility] Address: [address] [place] [address] Performed By: #### 5 7021-8 ####[facility] LABCLIA [id number] [place] [address] [place] Monocytes (Bld) [#/Vol] 0.62 10*3/uL Normal <0.87 [facility] Comment on above: Order Comment: Speci men Type: BLOOD SPECIMENOrdering Facility: [facility] Address: [address] [place] [address] Performed By: #### 5 7021-8 ####[facility] LABCLIA [id number] [place] [address] [place] Monocytes/100 WBC (Bld) 7.6 % Normal [facility] Comment on above: Order Comment: Speci men Type: BLOOD SPECIMENOrdering Facility: [facility] Address: [address] [place] [address] Performed By: #### 5 7021-8 ####[facility] LABCLIA [id number] [place] [id number] [place] Neutrophils (Bld) [#/Vol] 4.36 10*3/uL Normal 1.45-7.50 [facility] [facility] Comment on above: Order Comment: Speci men Type: BLOOD SPECIMENOrdering Facility: [facility] Address: [address] [place] [address] Performed By: #### 5 7021-8 ####[facility] LABCLIA [id number] [address], [facility] [address] [place] Neutrophils/100 WBC (Bld) 53.3 % Normal [facility] Comment on above: Order Comment: Speci men Type: BLOOD SPECIMENOrdering Facility: [facility] Address: [address] [place] [address] Performed By: #### 5 7021-8 ####[facility]CLIA [id number] [address], [place] [address] [place] Nucleated RBC (Bld) [#/Vol] 10*3/uL Normal <0.01 [facility] Comment on above: Order Comment: Speci men Type: BLOOD SPECIMENOrdering Facility: [facility] Address: [address] [place] [address] Performed By: #### 5 7021-8 ####[facility]CLIA [id number] [address], [place] [address] [place] Nucleated RBC/100 WBC (Bld) [Ratio] 0.0 /100 WBC Normal [facility] Comment on above: Order Comment: Speci men Type: BLOOD SPECIMENOrdering Facility: [facility] Address: [address] [place] [address] Performed By: #### 5 7021-8 ####[facility]CLIA [id number] [address], [place] [address] [place] Platelet mean volume (Bld) [Entitic vol] 10.5 fL Normal 9.0-12.7 [facility] Comment on above: Order Comment: Speci men Type: BLOOD SPECIMENOrdering Facility: [facility] Address: [address] [place] [address] Performed By: #### 5 7021-8 ####[facility]CLIA [id number] [address], [facility] [address] [address] [place] Platelets (Bld) [#/Vol] 219 10*3/uL Normal 150-400 [facility] Comment on above: Order Comment: Speci men Type: BLOOD SPECIMENOrdering Facility: [facility] Address: [address] [place] [address] Performed By: #### 5 7021-8 ####[facility] LABCLIA [id number] [place] [id number] [place] RBC (Bld) [#/Vol] 5.07 10*6/uL Normal 4.20-6.00 [facility] Comment on above: Order Comment: Speci men Type: BLOOD SPECIMENOrdering Facility: [facility] Address: [address] [place] [address] Performed By: #### 5 7021-8 ####[facility] LABIA [id number] [place] [address] [place] WBC (Bld) [#/Vol] 8.19 10*3/uL Normal 3.70-11.00 [facility] Comment on above: Order Comment: Speci men Type: BLOOD SPECIMENOrdering Facility: [facility] Address: [address] [place] [address] Performed By: #### 5 7021-8 ####[facility] LABIA [id number] [place] [address] [place] Comprehensive metabolic 2000 panelon 11-21-2024 Albumin [Mass/Vol] 3.9 g/dL Normal 3.9-4.9 [facility] Comment on above: Order Comment: Speci men Type: BLOOD SPECIMENOrdering Facility: [facility] Address: [address] [place] [address] Performed By: #### 2 4331-1, 3016-3, 20307-4 ####[facility] LABIA [id number] [place] [address] [place] ALP [Catalytic activity/Vol] 80 U/L Normal 38-113 [facility] Comment on above: Order Comment: Speci men Type: BLOOD SPECIMENOrdering Facility: [facility] Address: [address] [place] [id number] Performed By: #### 2 4331-1, 301-3, ####[facility]CLIA [id number] [address] [place] [address] [place] ALT [Catalytic activity/Vol] 20 U/L Normal 10-54 [facility] Comment on above: Order Comment: Speci men Type: BLOOD SPECIMENOrdering Facility: [facility] Address: [address] [place] [address] Performed By: #### 2 4331-1, 3015-3, 70558-8 ####[facility] LABIA [id number] [place] [id number] [place] Anion gap [Moles/Vol] 10 mmol/L Normal 8-15 [facility] Comment on above: Order Comment: Speci men Type: BLOOD SPECIMENOrdering Facility: [facility] Address: [address] [place] [address] Performed By: #### 2 4331-1, 3015-3, ####[facility] LABIA [id number] [place] [id number] [place] AST [Catalytic activity/Vol] 24 U/L Normal 14-40 [facility] Comment on above: Order Comment: Speci men Type: BLOOD SPECIMENOrdering Facility: [facility] Address: [address] [place], [place] [address] Performed By: #### 2 4331-1, 3015-3, 50008-8 ####[facility] LABIA [id number] [address] [address] [place] Bilirubin [Mass/Vol] 0.4 mg/dL Normal 0.2-1.3 [facility] Comment on above: Order Comment: Speci men Type: BLOOD SPECIMENOrdering Facility: [facility] Address: [address] [place], [place] [address] Performed By: #### 2 4331-1, 3015-09, ####[facility] LABCLIA [id number] [address] [address] [place] Calcium [Mass/Vol] 8.9 mg/dL Normal 8.5-10.2 [facility] Comment on above: Order Comment: Speci men Type: BLOOD SPECIMENOrdering Facility: [facility] Address: [address] [place], [place] [address] Performed By: #### 2 4331-1, 3015-09, ####[facility]CLIA [id number] [address] [address] [place] Chloride [Moles/Vol] 104 mmol/L Normal 98-107 [facility] Comment on above: Order Comment: Speci men Type: BLOOD SPECIMENOrdering Facility: [facility] Address: [address] [place] [address] Performed By: #### 2 4331-1, 3015-09, ####[facility]CLIA [id number] [address] [place] [address] [place] CO2 [Moles/Vol] 26 mmol/L Normal 22-30 [facility] Comment on above: Order Comment: Speci men Type: BLOOD SPECIMENOrdering Facility: [facility] Address: [address] [place], [place] [address] Performed By: #### 2 4331-1, 3015-09, ####[facility] LABCLIA [id number] [address] [address] [place] Creatinine [Mass/Vol] 0.82 mg/dL Normal 0.73-1.22 [facility] Comment on above: Order Comment: Speci men Type: BLOOD SPECIMENOrdering Facility: [facility] Address: [address] [place] [address] Performed By: #### 2 4331-1, 3015-09, ####[facility]CLIA [id number] [address] [place] Creatinine and Glomerular filtration rate.predicted panel (S/P/Bld) 95 mL/min/1.73m??? Normal >=60 [facility] Comment on above: Order Comment: Magdalena berg Type: BLOOD SPECIMENOrdering Facility: [facility] Address: [address] [place] [address] Result Comment: Brianda mated Glomerular Filtration Rate (eGFR) is calculated using the 2020 CKD-EPI creatinine equation. This equation utilizes serum creatinine, sex, and age as parameters. The creatinine assay has traceable calibration to isotope dilution-mass spectrometry. Refer to KDIGO guidelines for clinical interpretation. In patients with unstable renal function, e.g. those with acute kidney injury, the eGFR may not accurately reflect actual GFR. Performed By: #### 2 4331-1, 3016-3, 94736-2 ####[facility] [id number] [place] [address] [place] Glucose [Mass/Vol] 102 mg/dL High 74-99 [facility] Comment on above: Order Comment: Magdalena berg Type: BLOOD SPECIMENOrdering Facility: [facility] Address: [address] [place] [address] Result Comment: The [place] Diabetes Association (ADA) provides guidance for cutoff values for fasting glucose and random glucose. The ADA defines fasting as no caloric intake for at least 8 hours. Fasting plasma glucose results between 100 to 125 mg/dL indicate increased risk for diabetes (prediabetes). Fasting plasma glucose results greater than or equal to 126 mg/dL meet the criteria for diagnosis of diabetes. In the absence of unequivocal hyperglycemia, results should be confirmed by repeat testing. In a patient with classic symptoms of hyperglycemia or hyperglycemic crisis, random plasma glucose results greater than or equal to 200 mg/dL meet the criteria for diagnosis of diabetes. Reference: Standards of Medical Care in Diabetes 2016, [place] Diabetes Association. Diabetes Care. 2016.39(Suppl 1). Performed By: #### 2 4331-1, 3016-3, 58999-9 ####[facility] [id number] [address] [address] [place] Potassium [Moles/Vol] 4.6 mmol/L Normal 3.7-5.1 [facility] Comment on above: Order Comment: Speci men Type: BLOOD SPECIMENOrdering Facility: [facility] Address: [address] [place], [place] [address] Performed By: #### 2 4331-1, 3015-3, 21418-2 ####[facility] LABCLIA [id number] [address] [address] [place] Protein [Mass/Vol] 6.7 g/dL Normal 6.3-8.0 [facility] Comment on above: Order Comment: Speci men Type: BLOOD SPECIMENOrdering Facility: [facility] Address: [address] [place] [address] Performed By: #### 2 4331-1, 3015-3, ####[facility] LABCLIA [id number] [place] [id number] [place] Sodium [Moles/Vol] 140 mmol/L Normal 136-144 [facility] Comment on above: Order Comment: Speci men Type: BLOOD SPECIMENOrdering Facility: [facility] Address: [address] [place] [address] Performed By: #### 2 4331-1, 3015-3, ####[facility] LABCLIA [id number] [address] [place] [address] [place] Urea nitrogen [Mass/Vol] 14 mg/dL Normal 9-24 [facility] Comment on above: Order Comment: Speci men Type: BLOOD SPECIMENOrdering Facility: [facility] Address: [address] [place] [address] Performed By: #### 2 4331-1, 3015-3, 72424-2 ####[facility] LABCLIA [id number] [address] [address] [place] Lipid 1996 panelon 5 Cholesterol [Mass/Vol] 156 mg/dL Normal <200 [facility] Comment on above: Order Comment: Speci men Type: BLOOD SPECIMENOrdering Facility: [facility] Address: [address] [place] [address] Result Comment: <200 mg/dL, Desirable 200-239 mg/dL, Borderline high >239 mg/dL, High Performed By: #### 2 4331-1, 3015-3, ####[facility] LABCLIA [id number] [facility] [place] [id number] [address] [place] Cholesterol in HDL [Mass/Vol] 39 mg/dL Low >39 [facility] Comment on above: Order Comment: Speci men Type: BLOOD SPECIMENOrdering Facility: [facility] Address: [address] [place] [address] Result Comment: 40-5 9 mg/dL, Acceptable >59 mg/dL, High: Negative risk factor for coronary heart disease <40 mg/dL, Low: Positive risk factor for coronary heart disease Performed By: #### 2 4331-1, 3015-3, ####[facility]CLIA [id number] [facility] [address] [place] [address] [place] Cholesterol in LDL [Mass/Vol] 101 mg/dL High <100 [facility] Comment on above: Order Comment: Speci men Type: BLOOD SPECIMENOrdering Facility: [facility] Address: [address] [place] [address] Result Comment: <100 mg/dL, Optimal 100-129 mg/dL, Near optimal/above optimal 130-159 mg/dL, Borderline high 160-189 mg/dL, High >189 mg/dL, Very high Secondary prevention optimal LDL Cholesterol levels are recommended to be <70 mg/dL LDL cholesterol is calculated using the Villavicencio-NIH equation. Performed By: #### 2 4331-1, 6-3, ####[facility] LABCLIA [id number] [facility] [address] [id number] [address] [place] Cholesterol in LDL/Cholesterol in HDL [Mass ratio] 2.59 {ratio} High <2.54 [facility] Comment on above: Order Comment: Sterlingamber berg Type: BLOOD SPECIMENOrdering Facility: [facility] Address: [address] [place] [address] Result Comment: Nick cr: 1. National Cholesterol Education Program ATP III Guideline At-A-Glance Quick Desk Reference: National Heart, Lung, and Blood [place]. National Institutes of Health. 2001: NIH Publication No. 01-3305. 2. An International Atherosclerosis Society position paper: global recommendations for the management of dyslipidemia: executive summary, Atherosclerosis. 2014: 232(2):410-413. Performed By: #### 2 4331-1, 3015-09, ####[facility] LABCLIA [id number] [place] [address] [place] Cholesterol in VLDL [Mass/Vol] 13 mg/dL Normal <30 [facility] Comment on above: Order Comment: Sterlingamber berg Type: BLOOD SPECIMENOrdering Facility: [facility] Address: [address] [place] [address] Performed By: #### 2 4331-1, 3015-09, ####[facility] LABCLIA [id number] [place] [address] [place] Cholesterol non HDL [Mass/Vol] 117 mg/dL Normal <130 [facility] Comment on above: Order Comment: Magdalena berg Type: BLOOD SPECIMENOrdering Facility: [facility] Address: [address] [place] [address] Result Comment: <130 mg/dL, Optimal 130-159 mg/dL, Near optimal/above optimal 160-189 mg/dL, Borderline high 190-219 mg/dL, High >219 mg/dL, Very high Secondary prevention optimal non HDL Cholesterol levels are recommended to be <100 mg/dL Performed By: #### 2 4331-1, 3015-3, 30562-1 ####[facility] LABCLIA [id number] [address] [address] [place] Cholesterol.total/C holesterol in HDL [Mass ratio] 4.00 {ratio} Normal <5.10 [facility] Comment on above: Order Comment: Speci men Type: BLOOD SPECIMENOrdering Facility: [facility] Address: [address] [place] [address] Performed By: #### 2 4331-1, 3016-3, 80468-8 ####[facility] LABIA [id number] [place] [id number] [place] FASTING TIME 12 hrs Normal [facility] Comment on above: Order Comment: Speci men Type: BLOOD SPECIMENOrdering Facility: [facility] Address: [address] [place] [address] Performed By: #### 2 4331-1, 6-3, 48019-8 ####[facility] LABIA [id number] [address] [address] [place] Triglyceride [Mass/Vol] 81 mg/dL Normal <150 [facility] Comment on above: Order Comment: Speci men Type: BLOOD SPECIMENOrdering Facility: [facility] Address: [address] [place] [address] Result Comment: <150 mg/dL, Normal 150-199 mg/dL, Borderline high 200-499 mg/dL, High >499 mg/dL, Very high Performed By: #### 2 4331-1, 3016-3, 62310-9 ####[facility] LABIA [id number] [address] [address] [place] PSA SerPl-mCncon 11-21-2024 Prostate specific Ag [Mass/Vol] 3.19 ng/mL High <2.60 [facility] Comment on above: Order Comment: Speci men Type: BLOOD SPECIMENOrdering Facility: [facility] Address: [address] [place] [address] Result Comment: Tota l PSA test methodology used is the Electrochemiluminescence Immunoassay by [employer]. Total PSA values by differing methodologies cannot be interchanged. For an individual patient, the significance of a PSA level should be interpreted in a broad clinical context, including age, race, family history, digital rectal exam, prostate size, results of prior testing (prostate biopsy, free PSA, PCA3), and use of 5-alpha reductase inhibitors. Considering the high incidence of asymptomatic cancer in the general population that may not pose an ultimate risk to a patient, the decision to recommend urological evaluation or prostate biopsy should be individualized after consideration of all these factors. REFERENCE: Claire Tyler M.D., M.P.H., Lupillo Dailey M.D., Ph.D., Doug Short M.D., Oswald Aceves, M.P.H., Gemma Mata ScLisa. Effect of Verification Bias on Screening for Prostate Cancer by Measurement of Prostatic Specific Antigen. N Engl J Med 2003,349:335-42. Performed By: #### 2 857-1 ####[facility] LABIA [id number] [place] [address] [place] TSH SerPl-aCncon 11-21-2024 TSH Qn 1.430 m[IU]/L Normal 0.270-4.200 [facility] Comment on above: Order Comment: Speci men Type: BLOOD SPECIMENOrdering Facility: [facility] Address: [address] [place] [address] Performed By: #### 2 4331-1, 3016-3, 74138-3 ####[facility] [id number] [address] [place] XR ESOPHAGRAMon 11-09-2024 XR ESOPHAGRAM * * *Final Report* * * DATE OF EXAM: Nov 09 2024 9:35AM JARVIS [id number] - XR ESOPHAGRAM / PROCEDURE REASON: R13.12-Oropharyngeal dysphagia * * * * Physician Interpretation * * * * EXAMINATION: XR ESOPHAGRAM CLINICAL HISTORY: Coughing with swallowing. Dysphagia Technique: XR ESOPHAGRAM Comparison: None RESULT: Satisfactory esophageal motility. No aspiration was observed during this examination. Normal course and caliber of the esophagus. No mass or stricture is visualized. No esophageal diverticula. The patient was able to swallow a barium tablet without difficulty. Fluoroscopic Radiation Summary: Plane A, Air Kerma: 31.0 mGy Dose Area Product (DAP): Fluoro time: 0:44 min:sec IMPRESSION: Barium esophagram is within normal limits Ticketing Clerk: MAT Transcribe Date/Time: Nov 09 2024 11:43A Dictated by : RORO PHILIPPE MD This examination was interpreted and the report reviewed and electronically signed by: RORO PHILIPPE MD on Nov 09 2024 1:29PM EST [id number] [facility] 10-29-2024 [facility] Telephone (CARDMM) LORENZO REIS ([id number]) 1955 M Date Time Provider Department 10/29/24 ESHA HAWTHORNE During your visit today, we recorded the following information about you: Hemalatha Garcia LPN 10/29/2024 10:[address] Melissa Gongora Medical Clearance for Dental Treatment received and placed in Dr Hawthorne's basket for review. Lizette Kaufman RN 11/05/2024 4:14 PM Signed Forms signed Faxed to [phone] Confirmation received Placed in PSS for scan Charles Martins RN 12/13/2024 9:52 AM Signed Dental office called stating they have not received form. [place]ed clearance [place] [phone] confirmation received Allergies As of Date: 10/29/2024 Noted Allergy Reaction BEES 10/14/2005 7 - Swelling Comments: Pt has been through desensitization. Date Reviewed: 09/17/2024 Reviewed by: Twila Glaser MD - Fully Assessed Reason for Visit: Forms [663] Cmt: Dr Melissa Gongora Medical Clearance for Dental Treatment Prescriptions as of 12/13/2024 - levothyroxine (SYNTHROID) 175 mcg tablet Take 1 tablet by mouth once daily. Take on empty stomach. For thyroid - atorvastatin (LIPITOR) 80 mg tablet Take 1 tablet by mouth daily at bedtime. - tenkxoisjcm-ybozopgoz-uvjis ter (TRELEGY ELLIPTA) 100-62.5-25 mcg inhalation powder Inhale 1 Puff as instructed once daily. - albuterol HFA (PROVENTIL HFA, VENTOLIN HFA) 90 mcg/actuation inhaler Shake well then inhale 2 to 4 puffs as instructed every 6 hours as needed for wheezing/shortness of breath. - ezetimibe (ZETIA) 10 mg tablet Take 1 tablet by mouth once daily. - prasugrel (EFFIENT) 10 mg tab Take 1 tablet by mouth once daily. Start with 60 mg (6 tablets) loading dose after you stop brilinta, then continue with 1 tablet (10 mg) once daily thereafter. - finasteride (PROSCAR) 5 mg tablet Take 1 tablet by mouth once daily. - acetaminophen (TYLENOL) 325 mg tablet Take 2 tablets by mouth every 4 hours as needed for pain or fever (specify). Meds Comments as of 10/12/2016: Problem List As Of Date 10/29/2024 Noted Resolved Pure hypercholesterolemia [E78.00] 04/26/2011 Hypothyroidism [E03.9] 10/14/2005 09/25/2021 Mixed hyperlipidemia [E78.2] 10/14/2005 Benign neoplasm of colon [D12.6] 10/21/2006 12/20/2014 Ingrowing nail [L60.0] 06/09/2007 12/20/2014 UMBILICAL HERNIA [K42.9] 02/26/2009 Shoulder arthritis [M19.019] 05/18/2011 Unspecified gastritis and gastroduodenitis with*06/25/2011 12/20/2014 Benign neoplasm of rectum and anal canal [D12.8*06/25/2011 12/20/2014 Family history of prostate cancer [Z80.42] 10/16/2013 Elevated PSA [R97.20] 06/11/2014 BPH (benign prostatic hyperplasia) [N40.0] 06/11/2014 Frequency of micturition [R35.0] 06/11/2014 Acquired hypothyroidism [E03.9] 01/16/2016 Colon cancer screening [Z12.11] 08/05/2016 08/05/2016 Benign non-nodular prostatic hyperplasia [N40.0]08/16/2016 Chronic prostatitis [N41.1] 08/16/2016 Tendonitis, Achilles, right [M76.61] 05/26/2018 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] 05/26/2018 Calcaneal spur, right [M77.31] 05/26/2018 06/28/2018 Post-operative state [Z98.890] 08/11/2018 09/25/2021 Smoker [F17.200] 05/06/2020 History of pulmonary embolism [Z86.711] 05/19/2020 Hypokalemia [E87.6] 05/19/2020 09/25/2021 Flu-like symptoms [R68.89] 05/19/2020 09/25/2021 Lightheadedness [R42] 05/19/2020 09/25/2021 Bilateral pulmonary embolism (HCC) [I26.99] 05/19/2020 10/06/2021 Malnutrition of mild degree (HCC) [E44.1] 05/20/2020 11/12/2022 Obesity, Class I, BMI 30-34.9 [E66.811] 05/20/2020 Pulmonary nodules [R91.8] 05/20/2020 Multiple lacunar infarcts (HCC) [I63.81] 05/21/2020 Nocturia [R35.1] 10/01/2020 Unstable angina (HCC) [I20.0] 09/20/2021 09/25/2021 History of pulmonary embolus (PE) [Z86.711] 09/20/2021 Acute bronchitis [J20.9] 09/21/2021 09/24/2021 2V CAD s/p complex PCI (09/23/21) [I25.10] 09/22/2021 Unstable angina (HCC) [I20.0] 09/26/2021 09/26/2021 Essential hypertension, benign [I10] 06/16/2022 S/P shoulder surgery [Z98.890] 07/02/2022 Neck pain [M54.2] 11/29/2022 History of peptic ulcer disease [Z87.11] 12/21/2023 History of colonic polyps [Z86.0100] 06/28/2024 Encounter Status:Closed by HEMALATHA GARCIA on 10/29/24 [facility] Wendy 09-24-2024 CNPN Telephone (PULMWS) CHATOLORENZO A ([id number]) 1955 M Date Time Provider Department 09/24/24 TWILA GLASER PULMWS During your visit today, we recorded the following information about you: Twila Glaser MD 09/24/2024 3:23 PM Signed Left voicemail regarding results of overnight oxygen test. 9 hours of testing time with 7 hours 25 minutes of saturation less than 88%. Lowest oxygen saturation 69%. Instructed patient to call back or send [employer] message agreeing to nocturnal oxygen. Amy Lomas LPN 10/01/2024 10:02 AM Signed Patient agreeable to overnight O2. Needs order placed for Faby. KALI Oleary Kathleen, LPN 10/01/2024 1:52 PM Signed Orders faxed to Faby Lomas LPN Allergies As of Date: 09/24/2024 Noted Allergy Reaction BEES 10/14/2005 7 - Swelling Comments: Pt has been through desensitization. Date Reviewed: 09/17/2024 Reviewed by: Twila Glaser MD - Fully Assessed Reason for Visit: Results [95] Cmt: Night oxygen testing Primary Visit Diagnosis:Stage 3 severe COPD by GOLD classification ([facility]) [J44.9] Order(s):OXYGEN FOR HOME USE [[id number]] Order #: [id number] Prescriptions as of 10/01/2024 - peujmvttiph-pklfgqwdl-mkfdl ter (TRELEGY ELLIPTA) 100-62.5-25 mcg inhalation powder Inhale 1 Puff as instructed once daily. - varenicline (CHANTIX) 1 mg tablet Take 0.5 tablets by mouth once daily for 3 days, THEN 0.5 tablets two times a day for 4 days, THEN 1 tablet two times a day for 23 days. - varenicline (CHANTIX) 1 mg tablet Take 1 tablet by mouth two times a day. Patient should start on October 17, 2024. - albuterol HFA (PROVENTIL HFA, VENTOLIN HFA) 90 mcg/actuation inhaler Shake well then inhale 2 to 4 puffs as instructed every 6 hours as needed for wheezing/shortness of breath. - ezetimibe (ZETIA) 10 mg tablet Take 1 tablet by mouth once daily. - prasugrel (EFFIENT) 10 mg tab Take 1 tablet by mouth once daily. Start with 60 mg (6 tablets) loading dose after you stop brilinta, then continue with 1 tablet (10 mg) once daily thereafter. - finasteride (PROSCAR) 5 mg tablet Take 1 tablet by mouth once daily. - atorvastatin (LIPITOR) 80 mg tablet Take 1 tablet by mouth daily at bedtime. - levothyroxine (SYNTHROID) 175 mcg tablet Take 1 tablet by mouth once daily. Take on empty stomach. For thyroid - acetaminophen (TYLENOL) 325 mg tablet Take 2 tablets by mouth every 4 hours as needed for pain or fever (specify). Meds Comments as of 10/12/2016: Problem List As Of Date 09/24/2024 Noted Resolved Pure hypercholesterolemia [E78.00] 04/26/2011 Hypothyroidism [E03.9] 10/14/2005 09/25/2021 Mixed hyperlipidemia [E78.2] 10/14/2005 Benign neoplasm of colon [D12.6] 10/21/2006 12/20/2014 Ingrowing nail [L60.0] 06/09/2007 12/20/2014 UMBILICAL HERNIA [K42.9] 02/26/2009 Shoulder arthritis [M19.019] 05/18/2011 Unspecified gastritis and gastroduodenitis with*06/25/2011 12/20/2014 Benign neoplasm of rectum and anal canal [D12.8*06/25/2011 12/20/2014 Family history of prostate cancer [Z80.42] 10/16/2013 Elevated PSA [R97.20] 06/11/2014 BPH (benign prostatic hyperplasia) [N40.0] 06/11/2014 Frequency of micturition [R35.0] 06/11/2014 Acquired hypothyroidism [E03.9] 01/16/2016 Colon cancer screening [Z12.11] 08/05/2016 08/05/2016 Benign non-nodular prostatic hyperplasia [N40.0]08/16/2016 Chronic prostatitis [N41.1] 08/16/2016 Tendonitis, Achilles, right [M76.61] 05/26/2018 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] 05/26/2018 Calcaneal spur, right [M77.31] 05/26/2018 06/28/2018 Post-operative state [Z98.890] 08/11/2018 09/25/2021 Smoker [F17.200] 05/06/2020 History of pulmonary embolism [Z86.711] 05/19/2020 Hypokalemia [E87.6] 05/19/2020 09/25/2021 Flu-like symptoms [R68.89] 05/19/2020 09/25/2021 Lightheadedness [R42] 05/19/2020 09/25/2021 Bilateral pulmonary embolism (HCC) [I26.99] 05/19/2020 10/06/2021 Malnutrition of mild degree (HCC) [E44.1] 05/20/2020 11/12/2022 Obesity, Class I, BMI 30-34.9 [E66.811] 05/20/2020 Pulmonary nodules [R91.8] 05/20/2020 Multiple lacunar infarcts (HCC) [I63.81] 05/21/2020 Nocturia [R35.1] 10/01/2020 Unstable angina (HCC) [I20.0] 09/20/2021 09/25/2021 History of pulmonary embolus (PE) [Z86.711] 09/20/2021 Acute bronchitis [J20.9] 09/21/2021 09/24/2021 2V CAD s/p complex PCI (09/23/21) [I25.10] 09/22/2021 Unstable angina (HCC) [I20.0] 09/26/2021 09/26/2021 Essential hypertension, benign [I10] 06/16/2022 S/P shoulder surgery [Z98.890] 07/02/2022 Neck pain [M54.2] 11/29/2022 History of peptic ulcer disease [Z87.11] 12/21/2023 History of colonic polyps [Z86.0100] 06/28/2024 Encounter Status:Closed by TWILA GLASER on 09/24/24 [facility] CNOVon 09-17-2024 CNOV Office Visit (PULMWS ) LORENZO REIS ([id number]) 1955 M Date Time Provider Department 09/17/24 8:00 AM TWILA GLASER PULMWS During your visit today, we recorded the following information about you: Pulse Respiration Blood pressure Weight 65/minute 18/minute 128/76 93 kg Twila Glaser MD 09/17/2024 10:45 AM Signed . Respiratory [place] Note Patient name: Lorenzo Reis PCP: Mark Ramirez MD CC: COPD HPI: Lorenzo Reis 69 year old male current > 50 pack year smoker with PMH significant for hypothyroidism, HLD, h/o PE, CAD s/p stents, PUD, lung nodules seen in lung cancer screening clinic and being referred for evaluation of COPD. Respiratory symptoms consists of dyspnea on exertion, worse with exposure to cold air. He has cough productive of mostly clear mucus. Coughing can occur throughout the day. No nocturnal awakenings. Denies any wheezing. He has had an albuterol inhaler available for the past several years which does seem to help his dyspnea. His notes that he has some disordered breathing at night but no significant apneas and no significant snoring. Had issues with choking and possible aspiration. No GERD symptoms. He is a pack-a-day smoker with history of smoking cessation for at least a year in the past. He has used Chantix in the past without side effects and success. DATA: PFT 10/2024: Spirometry shows moderately severe obstruction with improvement in FVC postbronchodilator lung volumes show hyperinflation and air trapping and diffusing capacity is normal Labs: Component Ref Range AND Units 3 mo ago (05/25/24) WBC 3.70 - 11.00 k/uL 7.39 RBC 4.20 - 6.00 m/uL 5.06 Hemoglobin 13.0 - 17.0 g/dL 15.2 Hematocrit 39.0 - 51.0 % 48.2 MCV 80.0 - 100.0 fL 95.3 MCH 26.0 - 34.0 pg 30.0 MCHC 30.5 - 36.0 g/dL 31.5 RDW-CV 11.5 - 15.0 % 13.0 Platelet Count 150 - 400 k/uL 186 MPV 9.0 - 12.7 fL 10.5 Neutrophils % % 58.9 Abs Neut 1.45 - 7.50 k/uL 4.35 Lymphocytes % % 30.2 Abs Lymph 1.00 - 4.00 k/uL 2.23 Monocytes % % 7.3 Abs Victoria <0.87 k/uL 0.54 Eosinophils % % 2.7 Abs Eosin <0.46 k/uL 0.20 Basophils % % 0.5 Abs Baso <0.11 k/uL 0.04 Immature Granulocytes % % 0.4 Abs Immature Gran <0.10 k/uL 0.03 NRBC /100 WBC 0.0 Absolute nRBC <0.01 k/uL <0.01 Diff Type Auto Imaging / Diagnostic Studies: DATE OF EXAM: Aug 13 2024 8:19AM [facility] 0562 - CT LUNG SCREEN WO IVCON / COMPARISON: Prior screening dated 12/02/2022 RESULT: Are nodules present? Yes, 1-5 nodules Lung nodule comments: 5 mm left fissural nodule (173) unchanged. 4 mm right fissural nodule (150) unchanged. 3 mm left upper lobe nodule (70) unchanged. 4 mm subpleural left upper lobe nodule (51) unchanged. Other findings: Cholelithiasis. Severe coronary calcifications. Degenerative changes of the thoracic spine. Posterior left rib chronic deformities. Right shoulder hardware. Saber-sheath tracheal morphology with diffuse bronchial thickening and minimal upper lobe emphysema. Incidental coronary calcium as automatically processed and calculated using AI: Total Coronary Calcium Score = [100+] Agatston Units Percentile Rank (age and gender matched relative to reference population): [75th-100th] percentile* [* [email or web address]-[email or web address]/ calcium/input.[email or web address]] IMPRESSION: LungRADS category: 2 Review of images shows some minimal upper lobe emphysema, scattered subpulmonary nodules and bronchial wall thickening PAST MEDICAL HISTORY Diagnosis Date Acute pulmonary embolism (HCC) 06/2020 unknown cause; pt on Eliquis Benign neoplasm of rectum and anal canal CAD (coronary artery disease) s/p stents COPD (chronic obstructive pulmonary disease) (HCC) History of peptic ulcer disease Pure hypercholesterolemia Snoring Tobacco use Unspecified hypothyroidism ALLERGIES Allergen Reactions Bees Swelling Pt has been through desensitization. albuterol HFA (PROVENTIL HFA, VENTOLIN HFA) 90 mcg/actuation inhaler Shake well then inhale 2 to 4 puffs as instructed every 6 hours as needed for wheezing/shortness of breath. ezetimibe (ZETIA) 10 mg tablet Take 1 tablet by mouth once daily. finasteride (PROSCAR) 5 mg tablet Take 1 tablet by mouth once daily. atorvastatin (LIPITOR) 80 mg tablet Take 1 tablet by mouth daily at bedtime. levothyroxine (SYNTHROID) 175 mcg tablet Take 1 tablet by mouth once daily. Take on empty stomach. For thyroid nyvcgjyikjm-txqzocwpu-udqzc ter (TRELEGY ELLIPTA) 100-62.5-25 mcg inhalation powder Inhale 1 Puff as instructed once daily. varenicline (CHANTIX) 1 mg tablet Take 0.5 tablets by mouth once daily for 3 days, THEN 0.5 tablets two times a day for 4 days, THEN 1 tablet two times a day for 23 days. [START ON 10/17/2024] varenicline (CHANTIX) 1 mg tablet Take 1 tablet by mout (more content not included)... Normal [facility] Wendy 08-23-2024 [place] Telephone (PULWS) LORENZO REIS ([id number]) 1955 M Date Time Provider Department 08/23/24 MADINA MAJANO PULMWS During your visit today, we recorded the following information about you: Sabrina Lewis RN 08/23/2024 1:19 PM Signed Patient's calls and is asking about testing results that patient had done on 08/21/2024. Please review and advise, LESLEY Smith Melinda, APRN.ALICIA 08/24/2024 2:10 PM Signed Left message for pt will call back regarding results. My Chart message placed. aMdina Majano APRN.Alison Parekh MA 08/28/2024 1:25 PM Signed Krys returned call and states they read the Likva message. She has further questions asking if Madina could call her back. also states she needs someone to stress to her he needs to stop smoking. Madina Majano APRN.ALICIA 08/31/2024 4:02 PM Signed Phone call to patient's and discussed results and recommendation to consult pulmonary medicine. We also discussed smoking cessation program and Aculaser. She will consider this and let us know if they need any further assistance. Sabrina Deng 09/03/2024 9:48 AM Signed Spoke with patient and scheduled Pulm Consult. Sabrina Deng Allergies As of Date: 08/23/2024 Noted Allergy Reaction BEES 10/14/2005 7 - Swelling Comments: Pt has been through desensitization. Date Reviewed: 08/21/2024 Reviewed by: Nicole Hogue RPFT - Fully Assessed Reason for Visit: Results [95] Primary Visit Diagnosis:Asthma with chronic obstructive pulmonary disease (COPD) ([facility]) [J44.89] Order(s):CONSULT TO PULMONARY MEDICINE [[id number]] Order #: [id number]: [id number] Prescriptions as of 09/03/2024 - albuterol HFA (PROVENTIL HFA, VENTOLIN HFA) 90 mcg/actuation inhaler Shake well then inhale 2 to 4 puffs as instructed every 6 hours as needed for wheezing/shortness of breath. - ezetimibe (ZETIA) 10 mg tablet Take 1 tablet by mouth once daily. - prasugrel (EFFIENT) 10 mg tab Take 1 tablet by mouth once daily. Start with 60 mg (6 tablets) loading dose after you stop brilinta, then continue with 1 tablet (10 mg) once daily thereafter. - finasteride (PROSCAR) 5 mg tablet Take 1 tablet by mouth once daily. - atorvastatin (LIPITOR) 80 mg tablet Take 1 tablet by mouth daily at bedtime. - levothyroxine (SYNTHROID) 175 mcg tablet Take 1 tablet by mouth once daily. Take on empty stomach. For thyroid - acetaminophen (TYLENOL) 325 mg tablet Take 2 tablets by mouth every 4 hours as needed for pain or fever (specify). Meds Comments as of 10/12/2016: Problem List As Of Date 08/23/2024 Noted Resolved Pure hypercholesterolemia [E78.00] 04/26/2011 Hypothyroidism [E03.9] 10/14/2005 09/25/2021 Mixed hyperlipidemia [E78.2] 10/14/2005 Benign neoplasm of colon [D12.6] 10/21/2006 12/20/2014 Ingrowing nail [L60.0] 06/09/2007 12/20/2014 UMBILICAL HERNIA [K42.9] 02/26/2009 Shoulder arthritis [M19.019] 05/18/2011 Unspecified gastritis and gastroduodenitis with*06/25/2011 12/20/2014 Benign neoplasm of rectum and anal canal [D12.8*06/25/2011 12/20/2014 Family history of prostate cancer [Z80.42] 10/16/2013 Elevated PSA [R97.20] 06/11/2014 BPH (benign prostatic hyperplasia) [N40.0] 06/11/2014 Frequency of micturition [R35.0] 06/11/2014 Acquired hypothyroidism [E03.9] 01/16/2016 Colon cancer screening [Z12.11] 08/05/2016 08/05/2016 Benign non-nodular prostatic hyperplasia [N40.0]08/16/2016 Chronic prostatitis [N41.1] 08/16/2016 Tendonitis, Achilles, right [M76.61] 05/26/2018 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] 05/26/2018 Calcaneal spur, right [M77.31] 05/26/2018 06/28/2018 Post-operative state [Z98.890] 08/11/2018 09/25/2021 Smoker [F17.200] 05/06/2020 History of pulmonary embolism [Z86.711] 05/19/2020 Hypokalemia [E87.6] 05/19/2020 09/25/2021 Flu-like symptoms [R68.89] 05/19/2020 09/25/2021 Lightheadedness [R42] 05/19/2020 09/25/2021 Bilateral pulmonary embolism (HCC) [I26.99] 05/19/2020 10/06/2021 Malnutrition of mild degree (HCC) [E44.1] 05/20/2020 11/12/2022 Obesity, Class I, BMI 30-34.9 [E66.811] 05/20/2020 Pulmonary nodules [R91.8] 05/20/2020 Multiple lacunar infarcts (HCC) [I63.81] 05/21/2020 Nocturia [R35.1] 10/01/2020 Unstable angina (HCC) [I20.0] 09/20/2021 09/25/2021 History of pulmonary embolus (PE) [Z86.711] 09/20/2021 Acute bronchitis [J20.9] 09/21/2021 09/24/2021 2V CAD s/p complex PCI (09/23/21) [I25.10] 09/22/2021 Unstable angina (HCC) [I20.0] 09/26/2021 09/26/2021 Essential hypertension, benign [I10] 06/16/2022 S/P shoulder surgery [Z98.890] 07/02/2022 Neck pain [M54.2] 11/29/2022 History of peptic ulcer disease [Z87.11] 12/21/2023 History of colonic polyps [Z86.0100] 06/28/2024 Encounter Status:Closed by MADINA MAJANO on 08/31/24 [facility] Panel Informationon 08-21 [facility] [address] [place] [address] Test Date: 2024-08-21 Pat Name: LORENZO REIS Department: Room: Gender: M Senior Office Assistant: : 1955 Requested By: Order Number: [id number] Reading MD: Twila Glaser MD Interpretive Statements Current ATS/ERS acceptability and repeatability standards for DLCO met with 2 acceptable maneuvers. Current ATS/ERS acceptability and repeatability standards for lung volumes met. Medications and Allergies were reviewed for possible drug interactions per policy. No contraindications or sensitivities were noted. Meds taken: ALBUTEROL 1 hour before testing. 2 puffs Albuterol (180 mcg) delivered by MDI via holding chamber. HR pre = 64 /min, HR post = 63 /min. Current ATS/ERS acceptability and repeatability standards for spirometry met. Start of test and EOFE criteria met. IMPRESSION: Spirometry indicates moderate obstruction. Positive bronchodilator response. Lung volumes (FRC and/or RV) are elevated indicating hyperinflation and air trapping. The diffusion capacity (uncorrected for hemoglobin) is normal. Electronically Signed On 08-21-2024 12:22:32 EST by Twila Glaser MD Site: WO ID: [id number] Name: LORENZO REIS Visit Date: 08/21/2024 Doctor: Senior Office Assistant: Nicole Hogue Age: 69 Date of : 1955 Gender: Male Race: White Height: 67.13 in Weight: 205.00 lbs BSA: 2.046 Diagnosis: Shortness of breath Dyspnea: Cough: Wheeze: Tobacco Use: None Medications: Comments: Current ATS/ERS acceptability and repeatability standards for DLCO met with 2 acceptable maneuvers. Current ATS/ERS acceptability and repeatability standards for lung volumes met. Medications and Allergies were reviewed for possible drug interactions per policy. No contraindications or sensitivities were noted. Meds taken: ALBUTEROL 1 hour before testing. 2 puffs Albuterol (180 mcg) delivered by MDI via holding chamber. HR pre = 64 /min, HR post = 63 /min. Current ATS/ERS acceptability and repeatability standards for spirometry met. Start of test and EOFE criteria met. Review Status: Not Reviewed PRE-BRONCH POST-BRONCH Pred LLN ULN Actual %Pred Actual %Chng SPIROMETRY FVC (L) 3.64 2.71 4.58 3.44 94 4.15 19 FEV1 (L) 2.79 2.04 3.49 1.52 54 1.73 7 FEV1/FVC 0.77 0.64 0.88 0.44 57 0.42 -5 FEF25 (L/sec) 1.53 1.93 26 FEF50 (L/sec) 3.59 1.47 5.71 0.60 16 0.96 58 FEF75 (L/sec) 0.63 0.23 1.60 0.17 26 0.40 139 TEM91-87 (L/sec) 2.32 1.02 4.14 0.46 19 0.81 76 FEF Max (L/sec) 7.81 5.68 9.94 2.85 36 4.45 56 FIVC (L) 3.21 3.70 15 FIF50 (L/sec) 4.65 4.93 5 FIF Max (L/sec) 4.72 5.22 10 Time (sec) 15.42 15.30 0 ALEKSANDAR (L) 0.04 0.03 -13 Time To FEF Max (sec) 0.10 0.05 -51 LUNG VOLUMES SVC (L) 3.64 2.71 4.58 3.65 100 IC (L) 2.43 2.30 94 ERV (L) 1.21 1.32 108 FRC (Pleth) (L) 3.38 2.20 4.56 6.05 178 RV (Pleth) (L) 2.27 1.66 2.89 4.65 204 TLC (Pleth) (L) 6.44 5.14 7.75 8.25 127 RV/TLC (Pleth) (%) 35 28 43 56 159 DIFFUSION DLCOunc (ml/min/mmHg) 25.13 15.19 35.07 19.59 77 DLunc/VA 0.04 0.03 0.05 0.03 78 VA (L) 6.27 4.90 7.63 6.02 96 BHT (sec) 11.24 IVC (L) 3.55 PULMONARY FUNCTION LAB [facility] SPIROMETRY WITH DILATOR IF O BSTRUCTEDon 08-21-2024 DLCO (ml/min/mmHg) 19.59 ml/min/mmHg [facility] DLCO LLN (ml/min/mmHg) 15.19 ml/min/mmHg [facility] DLCO PREDICTED (ml/min/mmHg) 25.13 ml/min/mmHg [facility] DLCO ULN (ml/min/mmHg) 35.07 ml/min/mmHg [facility] DLCO/VA (ml/min/mmHg/L) 0.03 ml/min/mmHg/ L [facility] DLCO/VA PREDICTED (ml/min/mmHg/L) 0.04 ml/min/mmHg/ L [facility] DLCO/VAcor (ml/min/mmHg/L) 0.03 ml/min/mmHg/ L [facility] DLCOcor (ml/min/mmHg) 19.28 ml/min/mmHg [facility] DLCOcor PREDICTED (ml/min/mmHg) 25.13 ml/min/mmHg [facility] ERV BOX (L) 1.32 L [facility] ERV PREDICTED (L) 1.21 L/S [facility] FEF25% POST (L/S) 1.93 L/S [facility] FEF25% PRE (L/S) 1.53 L/S [facility] LGN02-54% LLN (L/S) 1.02 L/S [facility] JHE11-51% POST (L/S) 0.81 L/S [facility] YKQ22-84% PRE (L/S) 0.46 L/S [facility] LAB65-59% PREDICTED (L/S) 2.32 L/S [facility] FEF75% LLN (L/S) 0.23 L/S [facility] FEF75% POST (L/S) 0.40 L/S [facility] FEF75% PRE (L/S0 0.17 L/S [facility] FEF75% PREDICTED (L/S) 0.63 L/S [facility] FEF75% ULN (L/S) 1.60 L/S [facility] FET POST (S) 15.30 S [facility] FET PRE (S) 15.42 S [facility] FEV1 LLN (L) 2.04 L [facility] FEV1 PRE (L) 1.52 L [facility] FEV1 PREDICTED (L) 2.79 L [facility] FEV1 ULN (L) 3.49 L [facility] FEV1/FVC LLN (%) 64 % [facility] FEV1/FVC POST (%) 42 % [facility] FEV1/FVC PRE (%) 44 % [facility] FEV1/FVC PREDICTED (%) 77 % [facility] FEV1_POST (L) 1.73 L [facility] FRC Box (L) 6.05 L [facility] FVC LLN (L) 2.71 L [facility] FVC POST (L) 4.15 L [facility] FVC PRE (L) 3.44 L [facility] FVC PREDICTED (L) 3.64 L [facility] FVC ULN (L) 4.58 L [facility] IC BOX (L) 2.30 L [facility] IC PREDICTED (L) 2.43 L/S [facility] PEF LLN (L/S) 5.68 L/S [facility] PEF POST (L/S) 4.45 L/S [facility] PEF PRE (L/S) 2.85 L/S [facility] PEF ULN (L/S) 9.94 L/S [facility] RV Box (L) 4.65 L [facility] RV Box PREDICTED (L) 2.27 L [facility] RV/TLC Box (%) 56 % [facility] RV/TLC Box PREDICTED (%) 35 % [facility] SVC LLN (L) 2.71 L/S [facility] SVC PREDICTED (L) 3.64 L/S [facility] SVC ULN (L) 4.58 L/S [facility] TLC Box (L) 8.25 L [facility] TLC Box PREDICTED (L) 6.44 L [facility] VA (L) 6.02 L [facility] VA PREDICTED (L) 6.27 L [facility] VC (L) BOX 3.65 L [facility] CNOVon 08-13-2024 CNOV Office Visit (PULMWS ) LORENZO REIS ([id number]) 1955 M Date Time Provider Department 08/13/24 8:30 AM MADINA MAJANO PULPATSY During your visit today, we recorded the following information about you: Pulse Respiration Blood pressure Weight 89/minute 20/minute 114/78 91.3 kg Madina Majano APRN.CNP 08/13/2024 3:11 PM Signed LUNG SCREENING ANNUAL VISIT PRIMARY CARE PHYSICIAN: Mark Ramirez MD PULMONARY PROVIDER: none Results will be communicated via letter or electronic record if applicable. Visit Delivery: In Person Patient Visit Type: established Current or Ex-smoker? [Current Exam Type: annual LDCT Number of Pack Years: 54 Current smoker (=0) The patient's smoking history is similar to prior year shared decision visit. The reason for the discrepancy is NA Chief Complaint: Established patient in lung cancer screening program here for annual follow-up. Impression / Recommendations Lorenzo Reis presents for annual lung cancer screening annual exam and nodule evaluation. Plan: Indeterminate pulmonary nodules: Previously identified nodules appear stable and no new nodules of concern were seen on the exam. Low dose CT Scan to be repeated in one year. Plan subject to change pending final radiology report and recommendations. Nature of the lung nodule(s) and the options for further evaluation discussed in detail with patient. Lorenzo Reis expressed understanding and is in agreement with plan. 2. Encounter for screening for malignant neoplasm of respiratory organs I have determined that the patient is eligible for continued low dose CT screening based on age, absence of signs or symptoms of lung cancer, smoking history and total pack years. The patient was counseled on the importance of adherence to annual LDCT lung cancer screening, impact of comorbidities and ability or willingness to undergo diagnosis and treatment. The patient understands and feels comfortable with it: Yes. 3. Nicotine Dependence The patient was counseled on the importance of smoking cessation if current smoker and, if appropriate, offered additional tobacco cessation counseling services - Smoking Cessation Counseling. SMOKING CESSATION COUNSELING Smoking cessation methods including Behavior Modification were discussed with the patient and assistance offered. The medical conditions adversely affected by cigarette use include:COPD, Emphysema, and Lung Cancer. Counseled on benefits of quitting smoking, recommended cessation or reduction to prevent development and/or progression of emphysema. The patient is currently not ready to quit. I personally spent 1 minutes in counseling. The time spent in smoking cessation counseling is exclusive of any other counseling during this visit. 4. Shortness of breath Recommended continued follow up with cardiology. PFT ordered and will determine follow up after. - SPIROMETRY WITH DILATOR IF OBSTRUCTED; Future - LUNG VOLUMES; Future - LUNG DIFFUSION CAPACITY (DLCO); Future - albuterol HFA (PROVENTIL HFA, VENTOLIN HFA) 90 mcg/actuation inhaler; Shake well then inhale 2 to 4 puffs as instructed every 6 hours as needed for wheezing/shortness of breath. Dispense: 3 Each; Refill: 3 I spent a total of 30 minutes on the date of the service which included preparing to see the patient, sape-fi-thgm patient care, completing clinical documentation, performing a medically appropriate examination, counseling and educating the patient/family/caregiver, ordering medications, tests, or procedures, communicating with other HCPs (not separately reported), independently interpreting results (not separately reported), communicating results to the patient/family/caregiver, and care coordination (not separately reported). Madina Majano APRN.[facility] August 13, 2024 9:06 AM History of Present Illness: Lorenzo Reis is a 69 year old male who is presenting today for annual lung cancer screening LDCT and nodule surveillance/management. Patient has multiple nodules found on previous lung cancer screening LDCT. Last LDCT was performed on 12/02/2022 and was LUNG RADS Category 2. Previous potentially significant incidental findings on imaging: Severe coronary artery calcifications-hx of PCI stents. Patient is a current smoker with a 54 pack year history. Patient is currently still smoking cigarettes daily. Patient will continue to be eligible for lung cancer screening until age 77. The patient does not have any symptoms or signs of lung cancer. Patient has increased SOB with their daily activity-at work, carrying wood in. No wheezing or dyspnea. Patient denies feeling of chest tightness/congestion in the chest. Patient does not have a new or concern (more content not included)... Normal [facility] CT Chest for screening WO co n[place]aston 08-13-2024 IMPRESSION: LungRADS category: 2 LungRADS modifier: None LungRADS 0 reason: n/a Recommendations: Continue annual screening with LDCT in 12 months. Reference: [employer]. Lung CT Screening Reporting and Data System (Lung-RADS). Available at: http://www.acr.org/Quality- Safety/Resources/LungRADS Ticketing Clerk: MAT Transcribe Date/Time: Aug 13 2024 9:10A Dictated by : YASMINE CARRIZALES MD This examination was interpreted and the report reviewed and electronically signed by: YASMINE CARRIZALES MD on Aug 13 2024 9:24AM [facility] DIVISION OF RADIOLOGY * * *Final Report* * * DATE OF EXAM: Aug 13 2024 8:19AM [facility] 0562 - CT LUNG SCREEN WO IVCON / PROCEDURE REASON: multiple diagnoses * * * * Physician Interpretation * * * * EXAMINATION: CHEST CT WITHOUT CONTRAST (LOW-DOSE CT LUNG CANCER SCREENING PROTOCOL) CLINICAL HISTORY: Lung cancer LDCT screening ? absence of signs or symptoms of lung cancer. Nicotine dependence (cigarettes). Subsequent (annual) Technique: Spiral CT acquisition of the chest from the thoracic inlet to the upper abdomen without contrast. MQ: CTLCS_6 Patient characteristics: * Byti-bl-Gdcwx: 1955; Age at exam: 69 years * Gender: Male * Lung Disease: Asymptomatic (no signs or symptoms of lung disease) * Number of Pack Years: 54 * Current smoker (=0) or Number of Years since Quit: 0 * Ordering provider and NPI: MADINA MAJANO [id number] * Interpreting radiologist and NPI: Charles [id number] Exam acquisition parameters: * Exam Date: 08/13/2024 8:19 AM * Site: [facility] * * CT System Bench Shear Operator: Siemens * CT System Model: Sensation * Tube Current-Time (mA-sec): 34 * Peak Voltage (kV): 120V * Scan Time (sec): 12.78 * Scan Volume (z-length, cm): -34.40 * Pitch: 0.75 * Slice Thickness (mm): 1.5 * CT Dose-Length Product: 118 mGy*cm * CT Dose Index: 2.60mGy * CT Dose Reduction Method: Automated exposure control(AEC) and iterative recon COMPARISON: Prior screening dated 12/02/2022 RESULT: Are nodules present? Yes, 1-5 nodules Lung nodule comments: 5 mm left fissural nodule (173) unchanged. 4 mm right fissural nodule (150) unchanged. 3 mm left upper lobe nodule (70) unchanged. 4 mm subpleural left upper lobe nodule (51) unchanged. Other findings: Cholelithiasis. Severe coronary calcifications. Degenerative changes of the thoracic spine. Posterior left rib chronic deformities. Right shoulder hardware. Saber-sheath tracheal morphology with diffuse bronchial thickening and minimal upper lobe emphysema. Incidental coronary calcium as automatically processed and calculated using AI: Total Coronary Calcium Score = [100+] Agatston Units Percentile Rank (age and gender matched relative to reference population): [75th-100th] percentile* [* https://[email or web address]-[email or web address]/ calcium/input.aspx] DIVISION OF RADIOLOGY Provider, [facility] - 08/13/2024 * * *Final Report* * * DATE OF EXAM: Aug 13 2024 8:19AM [facility] 0562 - CT LUNG SCREEN WO [facility] / PROCEDURE REASON: multiple diagnoses * * * * Physician Interpretation * * * * EXAMINATION: CHEST CT WITHOUT CONTRAST (LOW-DOSE CT LUNG CANCER SCREENING PROTOCOL) CLINICAL HISTORY: Lung cancer LDCT screening ? absence of signs or symptoms of lung cancer. Nicotine dependence (cigarettes). Subsequent (annual) Technique: Spiral CT acquisition of the chest from the thoracic inlet to the upper abdomen without contrast. MQ: CTLCS_6 Patient characteristics: * Ayls-cl-Jpjmm: 1955; Age at exam: 69 years * Gender: Male * Lung Disease: Asymptomatic (no signs or symptoms of lung disease) * Number of Pack Years: 54 * Current smoker (=0) or Number of Years since Quit: 0 * Ordering provider and NPI: MADINA MAJANO [id number] * Interpreting radiologist and NPI: Charles [id number] Exam acquisition parameters: * Exam Date: 08/13/2024 8:19 AM * Site: [facility] * * CT System Bench Shear Operator: Siemens * CT System Model: Sensation * Tube Current-Time (mA-sec): 34 * Peak Voltage (kV): 120V * Scan Time (sec): 12.78 * Scan Volume (z-length, cm): -34.40 * Pitch: 0.75 * Slice Thickness (mm): 1.5 * CT Dose-Length Product: 118 mGy*cm * CT Dose Index: 2.60mGy * CT Dose Reduction Method: Automated exposure control(AEC) and iterative recon COMPARISON: Prior screening dated 12/02/2022 RESULT: Are nodules present? Yes, 1-5 nodules Lung nodule comments: 5 mm left fissural nodule (173) unchanged. 4 mm right fissural nodule (150) unchanged. 3 mm left upper lobe nodule (70) unchanged. 4 mm subpleural left upper lobe nodule (51) unchanged. Other findings: Cholelithiasis. Severe coronary calcifications. Degenerative changes of the thoracic spine. Posterior left rib chronic deformities. Right shoulder hardware. Saber-sheath tracheal morphology with diffuse bronchial thickening and minimal upper lobe emphysema. Incidental coronary calcium as automatically processed and calculated using AI: Total Coronary Calcium Score = [100+] Agatston Units Percentile Rank (age and gender matched relative to reference population): [75th-100th] percentile* [* https://www.ramirez-nhlbi.org/ calcium/input.aspx] IMPRESSION IMPRESSION: LungRADS category: 2 LungRADS modifier: None LungRADS 0 reason: n/a Recommendations: Continue annual screening with LDCT in 12 months. Reference: [employer]. Lung CT Screening Reporting and Data System (Lung-RADS). Available at: http://www.acr.org/Quality- Safety/Resources/LungRADS Ticketing Clerk: MAT Transcribe Date/Time: Aug 13 2024 9:10A Dictated by : YASMINE CARRIZALES MD This examination was interpreted and the report reviewed and electronically signed by: YASMINE CARRIZALES MD on Aug 13 2024 9:24AM EST [facility] Radiology Study observation (narrative) [facility] CT Chest for screening WO co ntrastOrdered By: [facility] Provider on 08-13-[address] [facility] [address] LUNG SCREEN WO IVCONon CT LUNG SCREEN WO IVCON * * *Final Report* * * DATE OF EXAM: Aug 13 2024 8:19AM [facility] 0562 - CT LUNG SCREEN WO IVCON / PROCEDURE REASON: multiple diagnoses * * * * Physician Interpretation * * * * EXAMINATION: CHEST CT WITHOUT CONTRAST (LOW-DOSE CT LUNG CANCER SCREENING PROTOCOL) CLINICAL HISTORY: Lung cancer LDCT screening ? absence of signs or symptoms of lung cancer. Nicotine dependence (cigarettes). Subsequent (annual) Technique: Spiral CT acquisition of the chest from the thoracic inlet to the upper abdomen without contrast. MQ: CTLCS_6 Patient characteristics: * Kphh-vx-Rzryv: 1955; Age at exam: 69 years * Gender: Male * Lung Disease: Asymptomatic (no signs or symptoms of lung disease) * Number of Pack Years: 54 * Current smoker (=0) or Number of Years since Quit: 0 * Ordering provider and NPI: MADINA MAJANO [id number] * Interpreting radiologist and NPI: Charles [id number] Exam acquisition parameters: * Exam Date: 08/13/2024 8:19 AM * Site: [facility] * * CT System Bench Shear Operator: [email or web address] * CT System Model: Sensation * Tube Current-Time (mA-sec): 34 * Peak Voltage (kV): 120V * Scan Time (sec): 12.78 * Scan Volume (z-length, cm): -34.40 * Pitch: 0.75 * Slice Thickness (mm): 1.5 * CT Dose-Length Product: 118 mGy*cm * CT Dose Index: 2.60mGy * CT Dose Reduction Method: Automated exposure control(AEC) and iterative recon COMPARISON: Prior screening dated 12/02/2022 RESULT: Are nodules present? Yes, 1-5 nodules Lung nodule comments: 5 mm left fissural nodule (173) unchanged. 4 mm right fissural nodule (150) unchanged. 3 mm left upper lobe nodule (70) unchanged. 4 mm subpleural left upper lobe nodule (51) unchanged. Other findings: Cholelithiasis. Severe coronary calcifications. Degenerative changes of the thoracic spine. Posterior left rib chronic deformities. Right shoulder hardware. Saber-sheath tracheal morphology with diffuse bronchial thickening and minimal upper lobe emphysema. Incidental coronary calcium as automatically processed and calculated using AI: Total Coronary Calcium Score = [100+] Agatston Units Percentile Rank (age and gender matched relative to reference population): [75th-100th] percentile* [* https://www.ramirez-nhlbi.org/ calcium/input.aspx] IMPRESSION: LungRADS category: 2 LungRADS modifier: None LungRADS 0 reason: n/a Recommendations: Continue annual screening with LDCT in 12 months. Reference: [employer]. Lung CT Screening Reporting and Data System (Lung-RADS). Available at: http://www.acr.org/Quality- Safety/Resources/LungRADS Ticketing Clerk: MAT Transcribe Date/Time: Aug 13 2024 9:10A Dictated by : YASMINE CARRIZALES MD This examination was interpreted and the report reviewed and electronically signed by: YASMINE CARRIZALES MD on Aug 13 2024 9:24AM EST [id number] [facility] CNOVon 07-05-2024 CNOV Office Visit (GENSWS ) LORENZO REIS ([id number]) 1955 Date Time Provider Department 07/05/24 9:00 AM SIMA MAYS During your visit today, we recorded the following information about you: Sima Mays APRN.[facility] 07/05/2024 8:59 AM Signed FOLLOW UP VISIT - ENDOSCOPY Lorenzo Reis 1955 [id number] REFERRING PHYSICIAN: Judson Alves III [address] [facility] [id number] Lorenzo Reis is a patient I am following for colon cancer screening- hx of polyps. Dr. Alves performed lower endoscopy on 06/28/24. The patient was found to have Impression: - One small (4-6 mm) polyp in the ascending colon, removed with a cold snare. Resected and retrieved. - Small lipoma in the ascending colon. - Diverticulosis in the sigmoid colon. - Non-bleeding internal hemorrhoids. - The examination was otherwise normal. Pathology demonstrated: FINAL DIAGNOSIS A. Colon, ascending, polyp, biopsy: - Hyperplastic polyp. The patient notes no complaints since the procedure. VITALS: There were no vitals taken for this visit. General: patient is alert, cooperative, pleasant and in no acute distress On examination, the abdomen is benign. Assessment ASSESSMENT/PLAN: 1. Hyperplastic polyp of ascending colon - ICD9: 211.3, ICD10: K63.5 The operative findings and pathology report were reviewed with the patient, and the patient has had the opportunity to ask questions and have questions answered. If the patient notes any problems or changes in bowel function, the patient should contact me immediately. Otherwise I recommend follow up endoscopy in 5 years. HM updated and recall letter generated. Discussed treatment plan and patient voices understanding. Patient's questions answered appropriately. Medications and potential side effects were discussed and patient voices understanding. Return to the office as scheduled or as needed for worsening/no improvement. Sima Mays APRN.[employer] Referring Provider: JUDSON ALVES [[id number]] Allergies As of Date: 07/05/2024 Noted Allergy Reaction BEES 10/14/2005 7 - Swelling Comments: Pt has been through desensitization. Date Reviewed: 07/05/2024 Reviewed by: Mary Cole MA - Fully Assessed Reason for Visit: Follow Up [171] Primary Visit Diagnosis:Hyperplastic polyp of ascending colon [K63.5] Prescriptions as of 07/05/2024 - ezetimibe (ZETIA) 10 mg tablet Take 1 tablet by mouth once daily. - prasugrel (EFFIENT) 10 mg tab Take 1 tablet by mouth once daily. Start with 60 mg (6 tablets) loading dose after you stop brilinta, then continue with 1 tablet (10 mg) once daily thereafter. - finasteride (PROSCAR) 5 mg tablet Take 1 tablet by mouth once daily. - atorvastatin (LIPITOR) 80 mg tablet Take 1 tablet by mouth daily at bedtime. - levothyroxine (SYNTHROID) 175 mcg tablet Take 1 tablet by mouth once daily. Take on empty stomach. For thyroid - albuterol HFA (PROVENTIL HFA, VENTOLIN HFA) 90 mcg/actuation inhaler Shake well then inhale 2 to 4 puffs as instructed every 6 hours as needed for wheezing/shortness of breath. - acetaminophen (TYLENOL) 325 mg tablet Take 2 tablets by mouth every 4 hours as needed for pain or fever (specify). Meds Comments as of 10/12/2016: Problem List As Of Date 07/05/2024 Noted Resolved Pure hypercholesterolemia [E78.00] 04/26/2011 Hypothyroidism [E03.9] 10/14/2005 09/25/2021 Mixed hyperlipidemia [E78.2] 10/14/2005 Benign neoplasm of colon [D12.6] 10/21/2006 12/20/2014 Ingrowing nail [L60.0] 06/09/2007 12/20/2014 UMBILICAL HERNIA [K42.9] 02/26/2009 Shoulder arthritis [M19.019] 05/18/2011 Unspecified gastritis and gastroduodenitis with*06/25/2011 12/20/2014 Benign neoplasm of rectum and anal canal [D12.8*06/25/2011 12/20/2014 Family history of prostate cancer [Z80.42] 10/16/2013 Elevated PSA [R97.20] 06/11/2014 BPH (benign prostatic hyperplasia) [N40.0] 06/11/2014 Frequency of micturition [R35.0] 06/11/2014 Acquired hypothyroidism [E03.9] 01/16/2016 Colon cancer screening [Z12.11] 08/05/2016 08/05/2016 Benign non-nodular prostatic hyperplasia [N40.0]08/16/2016 Chronic prostatitis [N41.1] 08/16/2016 Tendonitis, Achilles, right [M76.61] 05/26/2018 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] 05/26/2018 Calcaneal spur, right [M77.31] 05/26/2018 06/28/2018 Post-operative state [Z98.890] 08/11/2018 09/25/2021 Smoker [F17.200] 05/06/2020 History of pulmonary embolism [Z86.711] 05/19/2020 Hypokalemia [E87.6] 05/19/2020 09/25/2021 Flu-like symptoms [R68.89] 05/19/2020 09/25/2021 Lightheadedness [R42] 05/19/2020 09/25/2021 Bilateral pulmonary embolism (HCC) [I26.99] 05/19/2020 10/06/2021 Malnutrition of mild degree (HCC) [E44.1] 05/20/2020 11/12/2022 Obesity, Class I, BMI 30-34.9 [E66.811] 05/20/2020 Pulmonary nodules [R91.8] 05/20/2020 Multiple lacunar infarcts (more content not included)... [facility] Urgent Care Visit Reporton 1 09-04-2023 Urgent Care Visit Report [facility] [address], [address] [place] [address] OFFICE VISIT Date of Service: 07/04/24 MR#: [id number] Acct: [id number] Name: LORENZO REIS Rep #: [id number] : 1955 Provider: KAYLA Baxter Age/Sex: 69/M Location: [facility] Status: Signed Intake Vital Signs 11/02/21 16:01 07/04/24 15:09 Height 5 ft 9 in 5 ft 9 in Weight: 204 lb 2 oz BMI 30.1 BP 130/80 H Position Sitting Pulse 56 L Temp 97.7 F L Temp Source Oral Pulse Oximetry (%) 96 Oxygen Delivery Method room air Intake Visit Reasons: COUGH, HEADACHE Accompanied by: Self Allergies bee pollen Allergy (Verified 07/04/24 15:03) Swelling Medications ???Medication ???Instructions ???Recorded ???Confirmed ???Type levothyroxine 175 mcg tablet 175 mcg PO DAILY 05/16/20 07/04/24 History atorvastatin 80 mg tablet 80 mg PO QDAY 07/04/24 07/04/24 History azithromycin 250 mg tablet See Rx Instructions PO .COMPLEX #6 07/04/24 07/04/24 Rx tabs ezetimibe 10 mg tablet 10 mg PO QDAY 07/04/24 07/04/24 History finasteride 5 mg tablet 5 mg PO QDAY 07/04/24 07/04/24 History methylprednisolone 4 mg tablets in See Rx Instructions PO PER PKG DIR 07/04/24 07/04/24 Rx a dose pack (Medrol (Coleman)) #21 tabs prasugrel 10 mg tablet 10 mg PO QDAY 07/04/24 07/04/24 History Have you fallen in the past year?: No Nurse's Note: Patient has had a cough, and headache for 1 week. patient states he gets lightheaded when coughing to much. PFSH Medical History High cholesterol Hypothyroidism Social History Smoking Status: Current every day smoker tobacco type: cigarettes HPI HPI Details: LORENZO REIS, is a 69 M who presents to the office today for initial evaluation [facility] the [facility] for approximately 7 day history of persistent wheezing, intermittently productive purulent cough, CASTILLO. No complaints of fever, chills, sweats. Patient notes no complaints of chest pain or shortness of breath or dyspnea on exertion. Several close contacts recently dx???d w/ similar URI complaints. Tobacco smoker. No ceff-ghr-wvdhqag taken to assist. Requesting POC screening for COVID-19 and influenza. No other associated symptoms and no other alleviating/aggravating factors. ROS Const Constitutional: No other (As above) Exam Const General: cooperative, healthy appearing and no acute distress Orientation: alert, awake and oriented x3 HENMT Head: normal to inspection Ears: hearing grossly normal bilaterally, external ears normal, TM's normal bilaterally and EAC's normal Nose: external nose normal, nares normal, septum normal and clear nasal discharge Face and sinus: normal facial exam, sinuses nontender and face symmetric Mouth: oral mucosae normal, lip normal, tongue normal and oropharynx normal Throat: posterior oropharynx normal, tonsils normal, uvula midline and no postnasal drainage Eyes General: appearance normal, both eyes and all related structures Neck Neck: normal visual inspection, full ROM, no lymphadenopathy, no meningeal signs and supple Neck mass: No Thyroid: thyroid normal Lymphatic: no lymphadenopathy noted Chest Chest palpation inspection: normal inspection of the chest Resp Effort Inspection: normal respiratory effort, able to speak in complete sentences and cough Quality of cough: wet (nonproductive in office today) Auscultation: Bilateral: Diminished with wheezing throughout Cardio Palpation: normal PMI Rate: bradycardic Rhythm: regular rhythm Heart Sounds: S1 normal, S2 normal, no gallops, no murmurs and no rubs Pulses: radial pulses present Skin General: no rashes or lesions noted Neuro General: patient alert, patient awake and patient oriented x3 Cognition: normal cognition Speech: speech normal Psych Appearance: grossly normal Mental Status: mental status grossly normal Mood: congruent mood Affect: normal affect Speech and Movement: speech and movement normal Attitude: cooperative Diagnoses Contact with or exposure to other viral diseases Z20.828 Acute bronchitis, unspecified J20.9 Assessment and Plan Assessment and Plan (1) Contact with or exposure to other viral diseases: Status: Acute (2) Acute bronchitis, unspecified: Status: Acute Plan: See POC results. Azithromycin and Medrol Dosepak as prescribed today. Supportive measures as instructed today. Stop smoking! Follow-up with PCP in 3-5 days should symptoms not improve, ED sooner should symptoms worsen or any other concerns develop. Pt states acknowledging understanding all the above. Coding Level of Care Code Off vis,new,level 3 Assessment and Plan Assessment and Plan Orders: Orders POC Julia Cov (more content not included)... Normal [facility] [id number] 06-28-2024 [id number] HNO ID: [id number] Author: ROMINA VELAZQUEZ RN Service: ? Author Type: Registered Nurse Type: [id number] Filed: 06/28/2024 08:57 Note Text: The patient received a copy of Colonoscopy discharge instructions that contain information for how to contact the physician who performed the procedure and when to seek medical care. [facility] Colonoscopyon 06-28-2024 Colonoscopy [facility] Gastrointestinal Endoscopy Patient Name: Lorenzo Reis Procedure Date: 06/28/2024 7:53 AM Date of : 1955 Admit Type: Outpatient Age: 69 Gender: Male Note Status: Finalized Procedure: Colonoscopy Indications: High risk colon cancer surveillance: Personal history of colonic polyps Providers: Judson Alves MD Patient Profile: This is a 69 year old male. Refer to note in patient chart for documentation of history and physical. Last Colonoscopy: December 2020. Referring Physician: Sima Mays (Referring MD) Medicines: Fentanyl 50 micrograms IV, Midazolam 3 mg IV, Diphenhydramine 50 mg IV Complications: No immediate complications. Estimated blood loss: Minimal. Requesting Provider: Procedure: Pre-Anesthesia Assessment: - Prior to the procedure, a History and Physical was performed, and patient medications and allergies were reviewed. The patient's tolerance of previous anesthesia was also reviewed. The risks and benefits of the procedure and the sedation options and risks were discussed with the patient. All questions were answered, and informed consent was obtained. Prior Anticoagulants: The patient has taken Eliquis (apixaban), last dose was day of procedure. ASA Grade Assessment: III - A patient with severe systemic disease. After reviewing the risks and benefits, the patient was deemed in satisfactory condition to undergo the procedure. After I obtained informed consent, the scope was passed under direct vision. Throughout the procedure, the patient's blood pressure, pulse, and oxygen saturations were monitored continuously. The Colonoscope was introduced through the anus and advanced to the cecum, identified by appendiceal orifice and ileocecal valve. The colonoscopy was performed without difficulty. The patient tolerated the procedure well. The quality of the bowel preparation was adequate to identify polyps greater than 5 mm in size. The ileocecal valve, appendiceal orifice, and rectum were photographed. Moderate Sedation: The administration of moderate sedation was initiated at 08:04. Moderate (conscious) sedation was personally administered by the endoscopist. The following parameters were monitored: oxygen saturation, heart rate, blood pressure, respiratory rate, EKG, adequacy of pulmonary ventilation, and response to care. Total physician intraservice time was 16 minutes. Findings: The perianal and digital rectal examinations were normal. A small (4-6 mm) polyp was found in the ascending colon. The polyp was sessile. The polyp was removed with a cold snare. Resection and retrieval were complete. There was a small lipoma, 14 mm in diameter, in the ascending colon. Multiple large-mouthed and medium-mouthed diverticula were found in the sigmoid colon. Non-bleeding internal hemorrhoids were found during retroflexion. The hemorrhoids were mild and small. The exam was otherwise without abnormality. Impression: - One small (4-6 mm) polyp in the ascending colon, removed with a cold snare. Resected and retrieved. - Small lipoma in the ascending colon. - Diverticulosis in the sigmoid colon. - Non-bleeding internal hemorrhoids. - The examination was otherwise normal. Recommendation: - Patient has a contact number available for emergencies. The signs and symptoms of potential delayed complications were discussed with the patient. Return to normal activities tomorrow. Written discharge instructions were provided to the patient. - Resume previous diet. - Continue present medications. - Await pathology results. - Repeat colonoscopy in 5 years for surveillance. - Return to nurse practitioner at appointment to be scheduled. - Resume Eliquis (apixaban) tomorrow at prior dose. Procedure Code(s): --- Professional --- 89462, Colonoscopy, flexible; with removal of tumor(s), polyp(s), or other lesion(s) by snare technique G0500, Moderate sedation services provided by the same physician or other qualified health assistant child care teacher performing a gastrointestinal endoscopic service that sedation supports, requiring the presence of an independent trained observer to assist in the monitoring of the patient's level of consciousness and physiological status; initial 15 minutes of intra-service time; patient age 5 years or older (additional time may be reported with 71322, as appropriate) Diagnosis Code(s): --- Professional --- Z12.11, Encounter for screening for malignant neoplasm of colon Z86.0100, Personal history of colon polyps, unspecified D12.2, Benign neoplasm of ascending colon D17.5, Benign lipomatous neoplasm of intra-abdominal organs K64.8, Other hemorrhoids K57.30, Diverticulosis of large intestine without perforation or abscess without bleeding CPT copyright 2020 [employer]. All rights reserved. The codes documented in this report are preliminary a (more content not included)... [facility] Colonoscopy Study observatio non 06-28-2024 [place] [facility] Gastrointestinal Endoscopy Patient Name: Lorenzo Reis Procedure Date: 06/28/2024 7:53 AM Date of : 1955 Admit Type: Outpatient Age: 69 Gender: Male Note Status: Finalized Procedure: Colonoscopy Indications: High risk colon cancer surveillance: Personal history of colonic polyps Providers: Judson Alves MD Patient Profile: This is a 69 year old male. Refer to note in patient chart for documentation of history and physical. Last Colonoscopy: December 2020. Referring Physician: Sima Mays (Referring MD) Medicines: Fentanyl 50 micrograms IV, Midazolam 3 mg IV, Diphenhydramine 50 mg IV Complications: No immediate complications. Estimated blood loss: Minimal. Requesting Provider: Procedure: Pre-Anesthesia Assessment: - Prior to the procedure, a History and Physical was performed, and patient medications and allergies were reviewed. The patient's tolerance of previous anesthesia was also reviewed. The risks and benefits of the procedure and the sedation options and risks were discussed with the patient. All questions were answered, and informed consent was obtained. Prior Anticoagulants: The patient has taken Eliquis (apixaban), last dose was day of procedure. ASA Grade Assessment: III - A patient with severe systemic disease. After reviewing the risks and benefits, the patient was deemed in satisfactory condition to undergo the procedure. After I obtained informed consent, the scope was passed under direct vision. Throughout the procedure, the patient's blood pressure, pulse, and oxygen saturations were monitored continuously. The Colonoscope was introduced through the anus and advanced to the cecum, identified by appendiceal orifice and ileocecal valve. The colonoscopy was performed without difficulty. The patient tolerated the procedure well. The quality of the bowel preparation was adequate to identify polyps greater than 5 mm in size. The ileocecal valve, appendiceal orifice, and rectum were photographed. Moderate Sedation: The administration of moderate sedation was initiated at 08:04. Moderate (conscious) sedation was personally administered by the endoscopist. The following parameters were monitored: oxygen saturation, heart rate, blood pressure, respiratory rate, EKG, adequacy of pulmonary ventilation, and response to care. Total physician intraservice time was 16 minutes. Findings: The perianal and digital rectal examinations were normal. A small (4-6 mm) polyp was found in the ascending colon. The polyp was sessile. The polyp was removed with a cold snare. Resection and retrieval were complete. There was a small lipoma, 14 mm in diameter, in the ascending colon. Multiple large-mouthed and medium-mouthed diverticula were found in the sigmoid colon. Non-bleeding internal hemorrhoids were found during retroflexion. The hemorrhoids were mild and small. The exam was otherwise without abnormality. Impression: - One small (4-6 mm) polyp in the ascending colon, removed with a cold snare. Resected and retrieved. - Small lipoma in the ascending colon. - Diverticulosis in the sigmoid colon. - Non-bleeding internal hemorrhoids. - The examination was otherwise normal. Recommendation: - Patient has a contact number available for emergencies. The signs and symptoms of potential delayed complications were discussed with the patient. Return to normal activities tomorrow. Written discharge instructions were provided to the patient. - Resume previous diet. - Continue present medications. - Await pathology results. - Repeat colonoscopy in 5 years for surveillance. - Return to nurse practitioner at appointment to be scheduled. - Resume Eliquis (apixab (more content not included)... PROVATION [facility] Radiology Study observation (narrative) [facility] HISTORY PHYSICALon HISTORY PHYSICAL HNO ID: [id number] Author: JUDSON ALVES MD Service: General Surgery Author Type: Physician Type: H&P Filed: 06/28/2024 08:01 Note Text: HISTORY AND PHYSICAL Lorenzo Reis : 1955 REFERRING PHYSICIAN: Mark Ramirez [address] [facility] [id number] CHIEF COMPLAINT: Patient presents with: Colonoscopy Consult HPI: Lorenzo is a 68 year old male referred for endoscopy. Lorenzo notes personal history of colonic polyps. Patient denies any change in bowel habits, weight changes, blood in stools, black tarry stools or abdominal pain. Refers family history of colon issues.- father with colon cancer Lorenzo notes no upper GI complaints. Lorenzo has undergone prior endoscopy. Lorenzo has a history of CAD with stenting of LCX AND RCA. Pt currently takes Effient but has not had follow up with cardiology since 2021. Lorenzo denies SOB, CP, or palpitations Last colonoscopy in 12/[address] Kovacs Impression: - Five small polyps in the sigmoid colon, in the transverse colon and in the cecum, removed with a cold snare. Resected and retrieved. Clips (MR conditional) were placed. - Diverticulosis in the sigmoid colon. - The examination was otherwise normal on direct and retroflexion views. Pathology: 1. Colon, cecum, polypectomy (A) - Serrated polyp, favor sessile serrated polyp (deeper levels examined). 2. Colon, proximal transverse, polypectomy (B) - Tubular adenoma. 3. Colon, sigmoid, polypectomy (C) - Hyperplastic polyp. KL/mm/12/24/2020 CURRENT MEDICATIONS Current Outpatient Medications Medication Sig levothyroxine (SYNTHROID) 175 mcg tablet Take 1 tablet by mouth once daily. Take on empty stomach. For thyroid albuterol HFA (PROVENTIL HFA, VENTOLIN HFA) 90 mcg/actuation inhaler Shake well then inhale 2 to 4 puffs as instructed every 6 hours as needed for wheezing/shortness of breath. metoprolol tartrate, short acting, (LOPRESSOR) 25 mg tablet Take 1 tablet by mouth two times a day. acetaminophen (TYLENOL) 325 mg tablet Take 2 tablets by mouth every 4 hours as needed for pain or fever (specify). prasugrel (EFFIENT) 10 mg tab Take 1 tablet by mouth once daily. Start with 60 mg (6 tablets) loading dose after you stop brilinta, then continue with 1 tablet (10 mg) once daily thereafter. finasteride (PROSCAR) 5 mg tablet Take 1 tablet by mouth once daily. atorvastatin (LIPITOR) 80 mg tablet Take 1 tablet by mouth daily at bedtime. No current facility-administered medications for this visit. ALLERGIES: Bees PAST MEDICAL HISTORY PAST MEDICAL HISTORY Diagnosis Date Acute pulmonary embolism (HCC) 06/2020 unknown cause; pt on Eliquis Benign neoplasm of rectum and anal canal History of peptic ulcer disease Pure hypercholesterolemia Snoring Tobacco use Unspecified hypothyroidism PAST SURGICAL HISTORY PAST SURGICAL HISTORY Procedure Laterality Date COLONOSCOPY FLX DX W/COLLJ SPEC WHEN PFRMD 06/16/2009 Colonoscopy COLONOSCOPY FLX DX W/COLLJ SPEC WHEN PFRMD 08/05/2016 Colonoscopy COLONOSCOPY FLX DX W/COLLJ SPEC WHEN PFRMD 02/15/2018 multiple adenomatous polyps, repeat in 3 years COLONOSCOPY FLX DX W/COLLJ SPEC WHEN PFRMD 12/23/2020 COLSC FLX W/RMVL OF TUMOR POLYP LESION SNARE TQ 10/21/2006 Large polyp at 50cm, 3 small sessile polyps in low rectosigmoid COLSC FLX W/RMVL OF TUMOR POLYP LESION SNARE TQ 06/25/2011 polyp in rectum DIAGNOSIS/HISTORY left 5th finger, laceration repair HERNIA REPAIR HX PAST SURGICAL HISTORY OF Right 1979 right shoulder Dislocated collar bone, ORIF Dr. Kilgore PAST SURGICAL HISTORY OF N/A 08/20/2020 Prostate biopsy RPR PRIMARY OPEN/PRQ RUPTURED ACHILLES W/GRAFT Right 2018 RPR UMBILICAL HRNA 5 YRS/> REDUCIBLE 07/15/2009 with mesh FAMILY HISTORY FAMILY HISTORY Problem Relation Age of Onset Alzheimer's Disease Mother Coronary Artery Disease Father NC Prostate Cancer Father Colon Cancer Father SOCIAL HISTORY Social History Tobacco Use Smoking status: Every Day Packs/day: 1.00 Years: 50.00 Additional pack years: 0.00 Total pack years: 50.00 Types: Cigarettes Start date: 1970 Smokeless tobacco: Never Vaping Use Vaping Use: Never used Substance Use Topics Alcohol use: Yes Comment: less than 6 beers a week Drug use: No REVIEW OF SYMPTOMS: REVIEW OF SYSTEMS: General: The patient denies fatigue, denies weight loss, denies weight gain, denies feeling hot, and feelings of cold. Cardiovascular: The patient denies chest pain, denies heart disease, denies high blood pressure, denies high cholesterol, and denies poor circulation. Respiratory: The patient denies tuberculosis, denies pneumonia, denies frequent cough, denies shortness of breath, and denies coughing up blood. Gastrointestinal: The patient denies difficulty swallowing, denies acid reflux, denies ulcers, denies jaundice/hepatitis, denies gallbladder problems, denies vomiting, denies jane (more content not included)... [facility] SURGICAL PATHOLOGYon 024 CASE REPORT [facility] Comment on above: Order Comment: Speci men Type: TISSUE SPECIMENOrdering Facility: [facility] Address: [address] [place] [address] Result Comment: Surg ica Pathology Report Case: [id number] Authorizing Provider: Judson Alves MD Collected: 06/28/2024 08:17 AM Ordering Location: Ambulatory Surgery Received: 06/28/2024 02:31 PM Pathologist: Bety Villanueva MD, PhD Specimen: Colon, Ascending Polyp Performed By: #### S ####[facility] LABCLIA [id number] [address] [place] FINAL DIAGNOSIS [facility] Comment on above: Order Comment: Speci men Type: TISSUE SPECIMENOrdering Facility: [facility] Address: [address] [place] [address] Result Comment: A. C olon, ascending, polyp, biopsy: - Hyperplastic polyp. Performed By: #### S ####[facility] [id number] [address] [place] FINAL PERFORMING LAB [facility] Comment on above: Order Comment: Speci men Type: TISSUE SPECIMENOrdering Facility: [facility] Address: [address] [place] [address] Result Comment: Diag nostic interpretation performed at [facility], [address] [place] [address] CLIA# [id number] Medical Instrument Cable Fabricator: Ryan Cat M.D. Performed By: #### S ####[facility]CLIA [id number] [place] [address] [place] GROSS DESCRIPTION [facility] Comment on above: Order Comment: Speci men Type: TISSUE SPECIMENOrdering Facility: [facility] Address: [address] [place] [address] Result Comment: Gypsy pinedo, Ascending Polyp Received in formalin is one piece of ramírez-brown, soft tissue measuring 0.4 x 0.3 x 0.2 cm. Totally submitted in one cassette. [facility] June 28, 2024 9:12 PM Gross examination performed at [facility], [address] [place] [address], [place] [address] Performed By: #### S ####[facility] [id number] [facility] [id number] CNPNon 06-11-2024 CNPN Telephone (Adictiz) LORENZO REIS ([id number]) 1955 M Date Time Provider Department 06/11/24 SIMA MAYS Adictiz During your visit today, we recorded the following information about you: Raffi Stratton 06/11/2024 9:00 AM Signed Esha Hawthorne MD Miller, Jamie Yes he had cardiac cath done on 06/05/24. Medical management of CAD. Metoprolol discontinued due to bradycardia and hypotension at time of his cath. No further cardiac workup recommended. Allergies As of Date: 06/11/2024 Noted Allergy Reaction BEES 10/14/2005 7 - Swelling Comments: Pt has been through desensitization. Date Reviewed: 06/05/2024 Reviewed by: Tita Issa, RN - Fully Assessed Reason for Visit: Cardiac Clearance [4105] Prescriptions as of 10/15/2024 - sttjldnmwfx-tgivpmpja-gsqdi ter (TRELEGY ELLIPTA) 100-62.5-25 mcg inhalation powder Inhale 1 Puff as instructed once daily. - varenicline (CHANTIX) 1 mg tablet Take 0.5 tablets by mouth once daily for 3 days, THEN 0.5 tablets two times a day for 4 days, THEN 1 tablet two times a day for 23 days. - varenicline (CHANTIX) 1 mg tablet Take 1 tablet by mouth two times a day. Patient should start on October 17, 2024. - albuterol HFA (PROVENTIL HFA, VENTOLIN HFA) 90 mcg/actuation inhaler Shake well then inhale 2 to 4 puffs as instructed every 6 hours as needed for wheezing/shortness of breath. - ezetimibe (ZETIA) 10 mg tablet Take 1 tablet by mouth once daily. - prasugrel (EFFIENT) 10 mg tab Take 1 tablet by mouth once daily. Start with 60 mg (6 tablets) loading dose after you stop brilinta, then continue with 1 tablet (10 mg) once daily thereafter. - finasteride (PROSCAR) 5 mg tablet Take 1 tablet by mouth once daily. - atorvastatin (LIPITOR) 80 mg tablet Take 1 tablet by mouth daily at bedtime. - levothyroxine (SYNTHROID) 175 mcg tablet Take 1 tablet by mouth once daily. Take on empty stomach. For thyroid - acetaminophen (TYLENOL) 325 mg tablet Take 2 tablets by mouth every 4 hours as needed for pain or fever (specify). Meds Comments as of 10/12/2016: Problem List As Of Date 06/11/2024 Noted Resolved Pure hypercholesterolemia [E78.00] 04/26/2011 Hypothyroidism [E03.9] 10/14/2005 09/25/2021 Mixed hyperlipidemia [E78.2] 10/14/2005 Benign neoplasm of colon [D12.6] 10/21/2006 12/20/2014 Ingrowing nail [L60.0] 06/09/2007 12/20/2014 UMBILICAL HERNIA [K42.9] 02/26/2009 Shoulder arthritis [M19.019] 05/18/2011 Unspecified gastritis and gastroduodenitis with*06/25/2011 12/20/2014 Benign neoplasm of rectum and anal canal [D12.8*06/25/2011 12/20/2014 Family history of prostate cancer [Z80.42] 10/16/2013 Elevated PSA [R97.20] 06/11/2014 BPH (benign prostatic hyperplasia) [N40.0] 06/11/2014 Frequency of micturition [R35.0] 06/11/2014 Acquired hypothyroidism [E03.9] 01/16/2016 Colon cancer screening [Z12.11] 08/05/2016 08/05/2016 Benign non-nodular prostatic hyperplasia [N40.0]08/16/2016 Chronic prostatitis [N41.1] 08/16/2016 Tendonitis, Achilles, right [M76.61] 05/26/2018 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] 05/26/2018 Calcaneal spur, right [M77.31] 05/26/2018 06/28/2018 Post-operative state [Z98.890] 08/11/2018 09/25/2021 Smoker [F17.200] 05/06/2020 History of pulmonary embolism [Z86.711] 05/19/2020 Hypokalemia [E87.6] 05/19/2020 09/25/2021 Flu-like symptoms [R68.89] 05/19/2020 09/25/2021 Lightheadedness [R42] 05/19/2020 09/25/2021 Bilateral pulmonary embolism (HCC) [I26.99] 05/19/2020 10/06/2021 Malnutrition of mild degree (HCC) [E44.1] 05/20/2020 11/12/2022 Obesity, Class I, BMI 30-34.9 [E66.811] 05/20/2020 Pulmonary nodules [R91.8] 05/20/2020 Multiple lacunar infarcts (HCC) [I63.81] 05/21/2020 Nocturia [R35.1] 10/01/2020 Unstable angina (HCC) [I20.0] 09/20/2021 09/25/2021 History of pulmonary embolus (PE) [Z86.711] 09/20/2021 Acute bronchitis [J20.9] 09/21/2021 09/24/2021 2V CAD s/p complex PCI (09/23/21) [I25.10] 09/22/2021 Unstable angina (HCC) [I20.0] 09/26/2021 09/26/2021 Essential hypertension, benign [I10] 06/16/2022 S/P shoulder surgery [Z98.890] 07/02/2022 Neck pain [M54.2] 11/29/2022 History of peptic ulcer disease [Z87.11] 12/21/2023 Encounter Status:Closed by RAFFI STRATTON on 10/15/24 [facility] OPERATIVE NOon 06-05-2024 OPERATIVE NO HNO ID: [id number] Author: MARISOL PENG DO Service: Cardiovascular Disease Author Type: Physician Type: Operative Report Filed: 06/05/2024 09:53 Note Text: [facility] Department of Cardiovascular Medicine SECTION OF [facility] CARDIOLOGY/[facility] RETAIL ASSOCIATE MANAGER BILINGUAL PROCEDURE REPORT PATIENT NAME: Lorenzo Reis SERVICE DATE: June 05, 2024 SERVICE TIME: 9:44 AM LENS POLISHER: Marisol Peng DO ATTENDING: Marisol Peng DO PRIMARY CARE PHYSICIAN: Mark Ramirez MD REFERRING PROVIDER: Dr. Esha Hawthorne MONGOLIAN STUDY OF HEALTH and AGING SCALE:3=Managing Well CARDIOVASCULAR INSTABILITY:No PRE-PROCEDURE DIAGNOSIS: Abnormal Stress Test POST PROCEDURE DIAGNOSIS: Left main trunk was normal. Left anterior descending artery 45% mid stenosis with mild diffuse disease throughout. Circumflex artery had a patent stent to the first obtuse marginal branch and mild diffuse disease throughout. Dominant right coronary artery had a patent mid stent with mild to moderate diffuse disease throughout. Normal left ventricular systolic function with ejection fraction of 55%. Normal pulmonary artery pressures. Patient noted to have systolic blood pressure in the 90s and heart rate in the 40 to 50s therefore metoprolol discontinued upon discharge. PROCEDURE: Left Heart Catheterization LV Gram Right Heart Catheterization MODERATE SEDATION: No moderate sedation given PRIORITY AT TIME OF PROCEDURE: Elective SITE OF ENTRY: Radial:Right Radial CONTRAST: Omnipaque 300 mg Iodine/mL (iohexol injection, solution): 55 mL LEFT HEART CATHETERIZATION AND FINDINGS: The patient was taken to the cardiac laborer egg producing farm where the entry site was prepped and draped in a sterile manner. Under local anesthesic with 2% Lidocaine, the vessel was cannulated with micropuncture technique using an arterial needle and a 5F sheath was introduced. Selective injections were made in the left and right coronary arteries and various right, left and oblique views were obtained. The aortic valve was crossed and hemodynamic measurements were recorded. LV Angiogram was performed. ADDITIONAL PROCEDURES: CORONARY ANGIOGRAPHY: LEFT MAIN TRUNK: No Stenosis LEFT ANTERIOR DESCENDIN% mid stenosis with mild diffuse disease throughout. DIAGONAL #1: Mild diffuse disease. LEFT CIRCUMFLEX: Mild diffuse disease. MARGINAL #1: Widely patent proximal stent. DOMINANT: NO RIGHT CORONARY: Widely patent mid stent with mild to moderate diffuse disease throughout DOMINANT: YES POSTERIOR DESCENDING: Mild diffuse disease POSTERIOR LATERAL: Mild diffuse disease LV GRAM: LVEF: Normal ( 55% ) WALL MOTION: Normal MITRAL VALVE REGURGITATION: Not Assessed HEMODYNAMICS: LVEDP: 17 LV - AORTA: No Gradient RIGHT HEART CATHETERIZATION AND FINDINGS: Under local anesthesic with 2% Lidocaine, the vessel was cannulated directly using a Cook needle and a 7F sheath was inserted percutaneously over the wire using a [place] Lia catheter. The catheter was advanced under fluoroscopy through the right atrium, right ventricle, pulmonary artery and wedge position. Pressure measurements were obtained. Cardiac output was completed using thermodilution technique. RIGHT HEMODYNAMICS: Right Atrium: 2 Right Ventricle: 30/0 Pulmonary Artery: 32 /8/17 PCWP: 11 Cardiac Output: 7.34 Cardiac Index: 3.55 SVR: 883 PVR: 185 The sheath was removed and hemostatsis was established using manual pressure using wrist band. There was no bleeding at the end of the procedure. The pt was returned to the recovery room in a stable condition. ESTIMATED BLOOD LOSS: Less Than Minimal Unless Noted Here. SEDATION TIME: None COMPLICATIONS: None SPECIMENS: No specimens obtained unless noted here. CONDITION: Stable RECOMMENDATIONS: Follow protocol of post-op orders. Discontinue metoprolol due to hypotension and bradycardia. SIGNATURE: Marisol Peng DO PATIENT NAME: Lorenzo Reis DATE: June 05, 2024 TIME: 9:44 AM [facility] HISTORY PHYSICALon HISTORY PHYSICAL HNO ID: [id number] Author: MARISOL PENG DO Service: Cardiovascular Disease Author Type: Physician Type: H&P Filed: 06/05/2024 08:51 Note Text: [facility] Department of Cardiovascular Medicine SECTION [facility] History and Physical June 02, 2024 Name: Lorenzo Reis : 1955 Date: June 02, 2024 PRIMARY CARE PHYSICIAN: Mark Ramirez [facility] [place] [address] REFERRING PHYSICIAN: Dr. Esha Hawthorne HISTORY OF PRESENT ILLNESS: Mr. Reis is a 68 year old male presents today for left heart catheterization for further evaluation of abnormal nuclear stress test suggesting inferior infarct and ischemia. PAST MEDICAL HISTORY Diagnosis Date Acute pulmonary embolism (HCC) 06/2020 unknown cause; pt on Eliquis Benign neoplasm of rectum and anal canal History of peptic ulcer disease Pure hypercholesterolemia Snoring Tobacco use Unspecified hypothyroidism PAST SURGICAL HISTORY Procedure Laterality Date COLONOSCOPY FLX DX W/COLLJ SPEC WHEN PFRMD 06/16/2009 Colonoscopy COLONOSCOPY FLX DX W/COLLJ SPEC WHEN PFRMD 08/05/2016 Colonoscopy COLONOSCOPY FLX DX W/COLLJ SPEC WHEN PFRMD 02/15/2018 multiple adenomatous polyps, repeat in 3 years COLONOSCOPY FLX DX W/COLLJ SPEC WHEN PFRMD 12/23/2020 COLSC FLX W/RMVL OF TUMOR POLYP LESION SNARE TQ 10/21/2006 Large polyp at 50cm, 3 small sessile polyps in low rectosigmoid COLSC FLX W/RMVL OF TUMOR POLYP LESION SNARE TQ 06/25/2011 polyp in rectum DIAGNOSIS/HISTORY left 5th finger, laceration repair HERNIA REPAIR HX PAST SURGICAL HISTORY OF Right 1979 right shoulder Dislocated collar bone, ORIF Dr. Kilgore PAST SURGICAL HISTORY OF N/A 08/20/2020 Prostate biopsy RPR PRIMARY OPEN/PRQ RUPTURED ACHILLES W/GRAFT Right 2018 RPR UMBILICAL HRNA 5 YRS/> REDUCIBLE 07/15/2009 with mesh SOCIAL HISTORY Social History Tobacco Use Smoking status: Every Day Current packs/day: 1.00 Average packs/day: 1 pack/day for 53.9 years (53.9 ttl pk-yrs) Types: Cigarettes Start date: 1970 Smokeless tobacco: Never Vaping Use Vaping status: Never Used Substance Use Topics Alcohol use: Not Currently Drug use: No FAMILY HISTORY Problem Relation Age of Onset Alzheimer's Disease Mother Coronary Artery Disease Father [place] Prostate Cancer Father Colon Cancer Father ALLERGIES: ALLERGIES Allergen Reactions Bees Swelling Pt has been through desensitization. MEDICATIONS: Prior to Admission medications as of 05/25/24 0804 Medication Sig Last Dose Taking prasugrel (EFFIENT) 10 mg tab Take 1 tablet by mouth once daily. Start with 60 mg (6 tablets) loading dose after you stop brilinta, then continue with 1 tablet (10 mg) once daily thereafter. finasteride (PROSCAR) 5 mg tablet Take 1 tablet by mouth once daily. atorvastatin (LIPITOR) 80 mg tablet Take 1 tablet by mouth daily at bedtime. levothyroxine (SYNTHROID) 175 mcg tablet Take 1 tablet by mouth once daily. Take on empty stomach. For thyroid albuterol HFA (PROVENTIL HFA, VENTOLIN HFA) 90 mcg/actuation inhaler Shake well then inhale 2 to 4 puffs as instructed every 6 hours as needed for wheezing/shortness of breath. metoprolol tartrate, short acting, (LOPRESSOR) 25 mg tablet Take 1 tablet by mouth two times a day. acetaminophen (TYLENOL) 325 mg tablet Take 2 tablets by mouth every 4 hours as needed for pain or fever (specify). Medication Comments documented by Charles Garduno MD on 10/12/2016 at 0940. The History and Physical (completed in the past 30 days) has been reviewed and the patient has been examined. The contents accurately reflect the patient's condition with the following additions or revisions since the HANDP was completed. Examination indicates no changes compared to previous record dated Heart: S1, S2 regular Lung: CTA IMPRESSION / PLAN: 1. History of coronary artery disease status post stent placement to the right coronary artery in 2021 with abnormal nuclear stress test suggesting inferior infarct and ischemia with shortness of breath. Patient presents for left heart catheterization for further evaluation. The risks and benefits were discussed and patient wishes to proceed. Marisol Peng DO, [facility] Staff Nursing Staff Development Coordinator [facility] Dept. of Cardiovascular Medicine UPDATED HISTORY AND PHYSICAL EXAMINATION SERVICE DATE: 06/05/2024 SERVICE TIME: 8:51 AM SENSITIVE EXAMINATION CONSENT: The sensitive examination was discussed with the Patient or Patient's Authorized Tube Inspector. As applicable, any other physician, advance practice provider, medical student, or other health professional student that will be observing or involved in the sensitive examination for educational or training purposes was discussed with the Patient or Authorized Tube Inspector. The (more content not included)... [facility] 05-28-2024 [facility] Telephone (CollabFinderV) LORENZO REIS ([id number]) 1955 M Date Time Provider Department 05/28/24 KEITH NARAYAN [facility] During your visit today, we recorded the following information about you: Keith Narayan RN 05/28/2024 11:03 AM Signed Spoke with patient and reviewed all instructions including stopping Eliquis on Tuesday before [facility]. Allergies As of Date: 05/28/2024 Noted Allergy Reaction BEES 10/14/2005 7 - Swelling Comments: Pt has been through desensitization. Date Reviewed: 05/25/2024 Reviewed by: Cynthia Chi MA - Fully Assessed Prescriptions as of 05/28/2024 - prasugrel (EFFIENT) 10 mg tab Take 1 tablet by mouth once daily. Start with 60 mg (6 tablets) loading dose after you stop brilinta, then continue with 1 tablet (10 mg) once daily thereafter. - finasteride (PROSCAR) 5 mg tablet Take 1 tablet by mouth once daily. - atorvastatin (LIPITOR) 80 mg tablet Take 1 tablet by mouth daily at bedtime. - levothyroxine (SYNTHROID) 175 mcg tablet Take 1 tablet by mouth once daily. Take on empty stomach. For thyroid - albuterol HFA (PROVENTIL HFA, VENTOLIN HFA) 90 mcg/actuation inhaler Shake well then inhale 2 to 4 puffs as instructed every 6 hours as needed for wheezing/shortness of breath. - metoprolol tartrate, short acting, (LOPRESSOR) 25 mg tablet Take 1 tablet by mouth two times a day. - acetaminophen (TYLENOL) 325 mg tablet Take 2 tablets by mouth every 4 hours as needed for pain or fever (specify). Meds Comments as of 10/12/2016: Problem List As Of Date 05/28/2024 Noted Resolved Pure hypercholesterolemia [E78.00] 04/26/2011 Hypothyroidism [E03.9] 10/14/2005 09/25/2021 Mixed hyperlipidemia [E78.2] 10/14/2005 Benign neoplasm of colon [D12.6] 10/21/2006 12/20/2014 Ingrowing nail [L60.0] 06/09/2007 12/20/2014 UMBILICAL HERNIA [K42.9] 02/26/2009 Shoulder arthritis [M19.019] 05/18/2011 Unspecified gastritis and gastroduodenitis with*06/25/2011 12/20/2014 Benign neoplasm of rectum and anal canal [D12.8*06/25/2011 12/20/2014 Family history of prostate cancer [Z80.42] 10/16/2013 Elevated PSA [R97.20] 06/11/2014 BPH (benign prostatic hyperplasia) [N40.0] 06/11/2014 Frequency of micturition [R35.0] 06/11/2014 Acquired hypothyroidism [E03.9] 01/16/2016 Colon cancer screening [Z12.11] 08/05/2016 08/05/2016 Benign non-nodular prostatic hyperplasia [N40.0]08/16/2016 Chronic prostatitis [N41.1] 08/16/2016 Tendonitis, Achilles, right [M76.61] 05/26/2018 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] 05/26/2018 Calcaneal spur, right [M77.31] 05/26/2018 06/28/2018 Post-operative state [Z98.890] 08/11/2018 09/25/2021 Smoker [F17.200] 05/06/2020 History of pulmonary embolism [Z86.711] 05/19/2020 Hypokalemia [E87.6] 05/19/2020 09/25/2021 Flu-like symptoms [R68.89] 05/19/2020 09/25/2021 Lightheadedness [R42] 05/19/2020 09/25/2021 Bilateral pulmonary embolism (HCC) [I26.99] 05/19/2020 10/06/2021 Malnutrition of mild degree (HCC) [E44.1] 05/20/2020 11/12/2022 Obesity, Class I, BMI 30-34.9 [E66.811] 05/20/2020 Pulmonary nodules [R91.8] 05/20/2020 Multiple lacunar infarcts (HCC) [I63.81] 05/21/2020 Nocturia [R35.1] 10/01/2020 Unstable angina (HCC) [I20.0] 09/20/2021 09/25/2021 History of pulmonary embolus (PE) [Z86.711] 09/20/2021 Acute bronchitis [J20.9] 09/21/2021 09/24/2021 2V CAD s/p complex PCI (09/23/21) [I25.10] 09/22/2021 Unstable angina (HCC) [I20.0] 09/26/2021 09/26/2021 Essential hypertension, benign [I10] 06/16/2022 S/P shoulder surgery [Z98.890] 07/02/2022 Neck pain [M54.2] 11/29/2022 History of peptic ulcer disease [Z87.11] 12/21/2023 Encounter Status:Closed by KE[facility]AR[facility]AN [facility]28[facility] LORENZO REIS ([id number]) 1955 M Date Time Provider Department 05/28/24 ESHA HAWTHORNE During your visit today, we recorded the following information about you: Charles Martins RN 05/28/2024 11:39 AM Signed Hi Lorenzo , your lipid panel shows a high LDL cholesterol level which is the bad cholesterol that can cause stroke and/or heart attacks. Your goal LDL should be less than 70. We would therefore recommend adding a second cholesterol lowering medication called ezetimibe (zetia) 10 mg taken once a day, in addition to your atorvastatin 80 mg daily medication. You would need to recheck your lipid panel and liver function blood tests 4-6 weeks after starting ezetimibe (zetia). Kindly let us know if you would like for us to send this medication to your pharmacy as well as order the repeat blood tests. Esha Hawthorne MD 06/11/2024 10:10 AM Signed Orders for ezetimibe and lipid panel and LFTs for 4-6 weeks placed Esha Hawthorne MD 06/11/2024 10:10 AM Signed Addended by: ESHA HAWTHORNE on: 06/11/2024 10:10 AM Modules accepted: Orders Allergies As of Date: 05/28/2024 Noted Allergy Reaction BEES 10/14/2005 7 - Swelling Comments: Pt has been through desensitization. Date Reviewed: 05/25/2024 Reviewed by: Cynthia Chi MA - Fully Assessed Reason for Visit: Results [95] Cmt: Lab work Primary Visit Diagnosis:Coronary artery disease due to lipid rich plaque [I25.10, I25.83] Order(s):ezetimibe (ZETIA) 10 mg tabletTake 1 tablet by mouth once daily.Disp: 30 tabletRfl: 11 LIPID PANEL, NONFASTING [SQLIPNF] Order #: [id number] FUTURE HEPATIC FUNCTION PNL [SQHFP] Order #: [id number] FUTURE Prescriptions as of 06/15/2024 - ezetimibe (ZETIA) 10 mg tablet Take 1 tablet by mouth once daily. - prasugrel (EFFIENT) 10 mg tab Take 1 tablet by mouth once daily. Start with 60 mg (6 tablets) loading dose after you stop brilinta, then continue with 1 tablet (10 mg) once daily thereafter. - finasteride (PROSCAR) 5 mg tablet Take 1 tablet by mouth once daily. - atorvastatin (LIPITOR) 80 mg tablet Take 1 tablet by mouth daily at bedtime. - levothyroxine (SYNTHROID) 175 mcg tablet Take 1 tablet by mouth once daily. Take on empty stomach. For thyroid - albuterol HFA (PROVENTIL HFA, VENTOLIN HFA) 90 mcg/actuation inhaler Shake well then inhale 2 to 4 puffs as instructed every 6 hours as needed for wheezing/shortness of breath. - acetaminophen (TYLENOL) 325 mg tablet Take 2 tablets by mouth every 4 hours as needed for pain or fever (specify). Meds Comments as of 10/12/2016: Problem List As Of Date 05/28/2024 Noted Resolved Pure hypercholesterolemia [E78.00] 04/26/2011 Hypothyroidism [E03.9] 10/14/2005 09/25/2021 Mixed hyperlipidemia [E78.2] 10/14/2005 Benign neoplasm of colon [D12.6] 10/21/2006 12/20/2014 Ingrowing nail [L60.0] 06/09/2007 12/20/2014 UMBILICAL HERNIA [K42.9] 02/26/2009 Shoulder arthritis [M19.019] 05/18/2011 Unspecified gastritis and gastroduodenitis with*06/25/2011 12/20/2014 Benign neoplasm of rectum and anal canal [D12.8*06/25/2011 12/20/2014 Family history of prostate cancer [Z80.42] 10/16/2013 Elevated PSA [R97.20] 06/11/2014 BPH (benign prostatic hyperplasia) [N40.0] 06/11/2014 Frequency of micturition [R35.0] 06/11/2014 Acquired hypothyroidism [E03.9] 01/16/2016 Colon cancer screening [Z12.11] 08/05/2016 08/05/2016 Benign non-nodular prostatic hyperplasia [N40.0]08/16/2016 Chronic prostatitis [N41.1] 08/16/2016 Tendonitis, Achilles, right [M76.61] 05/26/2018 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] 05/26/2018 Calcaneal spur, right [M77.31] 05/26/2018 06/28/2018 Post-operative state [Z98.890] 08/11/2018 09/25/2021 Smoker [F17.200] 05/06/2020 History of pulmonary embolism [Z86.711] 05/19/2020 Hypokalemia [E87.6] 05/19/2020 09/25/2021 Flu-like symptoms [R68.89] 05/19/2020 09/25/2021 Lightheadedness [R42] 05/19/2020 09/25/2021 Bilateral pulmonary embolism (HCC) [I26.99] 05/19/2020 10/06/2021 Malnutrition of mild degree (HCC) [E44.1] 05/20/2020 11/12/2022 Obesity, Class I, BMI 30-34.9 [E66.811] 05/20/2020 Pulmonary nodules [R91.8] 05/20/2020 Multiple lacunar infarcts (HCC) [I63.81] 05/21/2020 Nocturia [R35.1] 10/01/2020 Unstable angina (HCC) [I20.0] 09/20/2021 09/25/2021 History of pulmonary embolus (PE) [Z86.711] 09/20/2021 Acute bronchitis [J20.9] 09/21/2021 09/24/2021 2V CAD s/p complex PCI (09/23/21) [I25.10] 09/22/2021 Unstable angina (HCC) [I20.0] 09/26/2021 09/26/2021 Essential hypertension, benign [I10] 06/16/2022 S/P shoulder surgery [Z98.890] 07/02/2022 Neck pain [M54.2] 11/29/2022 History of peptic ulcer disease [Z87.11] 12/21/2023 Prescriptions ordered this encounter Disp Refills Start End EZETIMIBE 10 MG TABLET 30 t* 11 06/11/2024 06/11/2025 Route: ORAL Sig: Take 1 tablet by mouth once daily. Enc (more content not included)... Normal [facility] 05-26-2024 CNPN Telephone (IRVIN) LORENZO REIS ([id number]) 1955 M Date Time Provider Department 05/26/24 ESHA HAWTHORNE During your visit today, we recorded the following information about you: Esha Hawthorne MD 05/26/2024 10:41 AM Signed I attempted to contact Lorenzo but unable to reach. I was able to reach his Bonita who said she would take the message on his behalf and relay it to Lorenzo. We discussed stress test results-mild ischemia RCA, small fixed defect RCA territory, EF 57%. PACs and PVCs. Discussed next steps for cardiac catheterization RHC+LHC either at [facility] where only diagnostic cath can be performed or at [facility] or [facility] where both diagnostic LHC and RHC and revascularization can be performed. She states to have it set up with Dr. Peng with whom she notes that Lorenzo had a good rapport with in 2021. Order for RHC and LHC at [facility]. She will discuss this with Lorenzo. If there are any changes in location preference for cath, Lorenzo/ Bonita will keep us updated. Allergies As of Date: 05/26/2024 Noted Allergy Reaction BEES 10/14/2005 7 - Swelling Comments: Pt has been through desensitization. 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 Start with 60 mg (6 tablets) loading dose after you stop brilinta, then continue with 1 tablet (10 mg) once daily thereafter. - finasteride (PROSCAR) 5 mg tablet Take 1 tablet by mouth once daily. - atorvastatin (LIPITOR) 80 mg tablet Take 1 tablet by mouth daily at bedtime. - levothyroxine (SYNTHROID) 175 mcg tablet Take 1 tablet by mouth once daily. Take on empty stomach. For thyroid - albuterol HFA (PROVENTIL HFA, VENTOLIN HFA) 90 mcg/actuation inhaler Shake well then inhale 2 to 4 puffs as instructed every 6 hours as needed for wheezing/shortness of breath. - metoprolol tartrate, short acting, (LOPRESSOR) 25 mg tablet Take 1 tablet by mouth two times a day. - acetaminophen (TYLENOL) 325 mg tablet Take 2 tablets by mouth every 4 hours as needed for pain or fever (specify). Meds Comments as of 10/12/2016: Problem List As Of Date 05/26/2024 Noted Resolved Pure hypercholesterolemia [E78.00] 04/26/2011 Hypothyroidism [E03.9] 10/14/2005 09/25/2021 Mixed hyperlipidemia [E78.2] 10/14/2005 Benign neoplasm of colon [D12.6] 10/21/2006 12/20/2014 Ingrowing nail [L60.0] 06/09/2007 12/20/2014 UMBILICAL HERNIA [K42.9] 02/26/2009 Shoulder arthritis [M19.019] 05/18/2011 Unspecified gastritis and gastroduodenitis with*06/25/2011 12/20/2014 Benign neoplasm of rectum and anal canal [D12.8*06/25/2011 12/20/2014 Family history of prostate cancer [Z80.42] 10/16/2013 Elevated PSA [R97.20] 06/11/2014 BPH (benign prostatic hyperplasia) [N40.0] 06/11/2014 Frequency of micturition [R35.0] 06/11/2014 Acquired hypothyroidism [E03.9] 01/16/2016 Colon cancer screening [Z12.11] 08/05/2016 08/05/2016 Benign non-nodular prostatic hyperplasia [N40.0]08/16/2016 Chronic prostatitis [N41.1] 08/16/2016 Tendonitis, Achilles, right [M76.61] 05/26/2018 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] 05/26/2018 Calcaneal spur, right [M77.31] 05/26/2018 06/28/2018 Post-operative state [Z98.890] 08/11/2018 09/25/2021 Smoker [F17.200] 05/06/2020 History of pulmonary embolism [Z86.711] 05/19/2020 Hypokalemia [E87.6] 05/19/2020 09/25/2021 Flu-like symptoms [R68.89] 05/19/2020 09/25/2021 Lightheadedness [R42] 05/19/2020 09/25/2021 Bilateral pulmonary embolism (HCC) [I26.99] 05/19/2020 10/06/2021 Malnutrition of mild degree (HCC) [E44.1] 05/20/2020 11/12/2022 Obesity, Class I, BMI 30-34.9 [E66.811] 05/20/2020 Pulmonary nodules [R91.8] 05/20/2020 Multiple lacunar infarcts (HCC) [I63.81] 05/21/2020 Nocturia [R35.1] 10/01/2020 Unstable angina (HCC) [I20.0] 09/20/2021 09/25/2021 History of pulmonary embolus (PE) [Z86.711] 09/20/2021 Acute bronchitis [J20.9] 09/21/2021 09/24/2021 2V CAD s/p complex PCI (09/23/21) [I25.10] 09/22/2021 Unstable angina (HCC) [I20.0] 09/26/2021 09/26/2021 Essential hypertension, benign [I10] 06/16/2022 S/P shoulder surgery [Z98.890] 07/02/2022 Neck pain [M54.2] 11/29/2022 History of peptic ulcer disease [Z87.11] 12/21/2023 Encounter Status:Closed by ESHA HAWTHORNE on 05/26/24 Normal [facility] Bilirub Conj SerPl-mCncon Bilirubin.conjugate d [Mass/Vol] mg/dL Normal <0.2 [facility] Comment on above: Order Comment: Speci men Type: BLOOD SPECIMENOrdering Facility: [facility] Address: [address] [place] [address] Performed By: #### 2 4331-1, 3016-3, 85107-4, 92813-7 ####[facility] [id number] [place] [address] [place] CBC W Auto Differential pane l (Bld)on 05-25-2024 Basophils (Bld) [#/Vol] 0.04 10*3/uL Normal <0.11 [facility] Comment on above: Order Comment: Speci men Type: BLOOD SPECIMENOrdering Facility: [facility] Address: [address] [place] [address] Performed By: #### 5 7021-8 ####[facility] [id number] [place] [address] [place] Basophils/100 WBC (Bld) 0.5 % Normal [facility] Comment on above: Order Comment: Speci men Type: BLOOD SPECIMENOrdering Facility: [facility] Address: [address] [place] [address] Performed By: #### 5 7021-8 ####[facility] [id number] [place] [address] [place] Differential cell count method Nom (Bld) Auto Normal [facility] Comment on above: Order Comment: Speci men Type: BLOOD SPECIMENOrdering Facility: [facility] Address: [address] [place] [address] Performed By: #### 5 7021-8 ####[facility] [id number] [place] [address] [place] Eosinophils (Bld) [#/Vol] 0.20 10*3/uL Normal <0.46 [facility] Comment on above: Order Comment: Speci men Type: BLOOD SPECIMENOrdering Facility: [facility] Address: [address] [place] [address] Performed By: #### 5 7021-8 ####[facility] [id number] [place] [address] [place] Eosinophils/100 WBC (Bld) 2.7 % Normal [facility] Comment on above: Order Comment: Speci men Type: BLOOD SPECIMENOrdering Facility: [facility] Address: [address] [place] [address] Performed By: #### 5 7021-8 ####[facility] [id number] [place] [address] [place] Erythrocyte distribution width (RBC) [Ratio] 13.0 % Normal 11.5-15.0 [facility] Comment on above: Order Comment: Speci men Type: BLOOD SPECIMENOrdering Facility: [facility] Address: [address] [place] [address] Performed By: #### 5 7021-8 ####[facility] [id number] [place] [address] [place] Hematocrit (Bld) [Volume fraction] 48.2 % Normal 39.0-51.0 [facility] Comment on above: Order Comment: Speci men Type: BLOOD SPECIMENOrdering Facility: [facility] Address: [address] [place] [address] Performed By: #### 5 7021-8 ####[facility] [id number] [place] [address] [place] Hemoglobin (Bld) [Mass/Vol] 15.2 g/dL Normal 13.0-17.0 [facility] Comment on above: Order Comment: Speci men Type: BLOOD SPECIMENOrdering Facility: [facility] Address: [address] [place] [address] Performed By: #### 5 7021-8 ####[facility] [id number] [place] [address] [place] Immature granulocytes (Bld) [#/Vol] 0.03 10*3/uL Normal <0.10 [facility] Comment on above: Order Comment: Speci men Type: BLOOD SPECIMENOrdering Facility: [facility] Address: [address] [place] [address] Performed By: #### 5 7021-8 ####[facility] [id number] [place] [address] [place] Immature granulocytes/100 WBC (Bld) 0.4 % Normal [facility] Comment on above: Order Comment: Speci men Type: BLOOD SPECIMENOrdering Facility: [facility] Address: [address] [place] [address] Performed By: #### 5 7021-8 ####[facility] [id number] [place] [address] [place] Lymphocytes (Bld) [#/Vol] 2.23 10*3/uL Normal 1.00-4.00 [facility] Comment on above: Order Comment: Speci men Type: BLOOD SPECIMENOrdering Facility: [facility] Address: [address] [place] [address] Performed By: #### 5 7021-8 ####[facility] [id number] [place] [address] [place] Lymphocytes/100 WBC (Bld) 30.2 % Normal [facility] Comment on above: Order Comment: Speci men Type: BLOOD SPECIMENOrdering Facility: [facility] Address: [address] [place] [address] Performed By: #### 5 7021-8 ####[facility] [id number] [place] [address] [place] MCH (RBC) [Entitic mass] 30.0 pg Normal 26.0-34.0 [facility] Comment on above: Order Comment: Speci men Type: BLOOD SPECIMENOrdering Facility: [facility] Address: [address] [place] [address] Performed By: #### 5 7021-8 ####[facility] [id number] [place] [address] [place] MCHC (RBC) [Mass/Vol] 31.5 g/dL Normal 30.5-36.0 [facility] Comment on above: Order Comment: Speci men Type: BLOOD SPECIMENOrdering Facility: [facility] Address: [address] [place] [address] Performed By: #### 5 7021-8 ####[facility] [id number] [place] [address] [place] MCV (RBC) [Entitic vol] 95.3 fL Normal 80.0-100.0 [facility] Comment on above: Order Comment: Speci men Type: BLOOD SPECIMENOrdering Facility: [facility] Address: [address] [place] [address] Performed By: #### 5 7021-8 ####[facility] [id number] [place] [address] [place] Monocytes (Bld) [#/Vol] 0.54 10*3/uL Normal <0.87 [facility] Comment on above: Order Comment: Speci men Type: BLOOD SPECIMENOrdering Facility: [facility] Address: [address] [place] [address] Performed By: #### 5 7021-8 ####[facility] [id number] [place] [address] [place] Monocytes/100 WBC (Bld) 7.3 % Normal [facility] Comment on above: Order Comment: Speci men Type: BLOOD SPECIMENOrdering Facility: [facility] Address: [address] [place] [address] Performed By: #### 5 7021-8 ####[facility] [id number] [place] [address] [place] Neutrophils (Bld) [#/Vol] 4.35 10*3/uL Normal 1.45-7.50 [facility] Comment on above: Order Comment: Speci men Type: BLOOD SPECIMENOrdering Facility: [facility] Address: [address] [place] [address] Performed By: #### 5 7021-8 ####[facility] [id number] [place] [address] [place] Neutrophils/100 WBC (Bld) 58.9 % Normal [facility] Comment on above: Order Comment: Speci men Type: BLOOD SPECIMENOrdering Facility: [facility] Address: [address] [place] [address] Performed By: #### 5 7021-8 ####[facility] [id number] [place] [address] [place] Nucleated RBC (Bld) [#/Vol] 10*3/uL Normal <0.01 [facility] Comment on above: Order Comment: Speci men Type: BLOOD SPECIMENOrdering Facility: [facility] Address: [address] [place] [address] Performed By: #### 5 7021-8 ####[facility] [id number] [place] [address] [place] Nucleated RBC/100 WBC (Bld) [Ratio] 0.0 /100 WBC Normal [facility] Comment on above: Order Comment: Speci men Type: BLOOD SPECIMENOrdering Facility: [facility] Address: [address] [place] [address] Performed By: #### 5 7021-8 ####[facility] [id number] [place] [address] [place] Platelet mean volume (Bld) [Entitic vol] 10.5 fL Normal 9.0-12.7 [facility] Comment on above: Order Comment: Speci men Type: BLOOD SPECIMENOrdering Facility: [facility] Address: [address] [place] [address] Performed By: #### 5 7021-8 ####[facility] [id number] [place] [address] [place] Platelets (Bld) [#/Vol] 186 10*3/uL Normal 150-400 [facility] Comment on above: Order Comment: Speci men Type: BLOOD SPECIMENOrdering Facility: [facility] Address: [address] [place] [address] Performed By: #### 5 7021-8 ####[facility] [id number] [place] [id number] [place] RBC (Bld) [#/Vol] 5.06 10*6/uL Normal 4.20-6.00 [facility] Comment on above: Order Comment: Speci men Type: BLOOD SPECIMENOrdering Facility: [facility] Address: [address] [place] [address] Performed By: #### 5 7021-8 ####[facility] [id number] [place] [address] [place] WBC (Bld) [#/Vol] 7.39 10*3/uL Normal 3.70-11.00 [facility] Comment on above: Order Comment: Speci men Type: BLOOD SPECIMENOrdering Facility: [facility] Address: [address] [place] [address] Performed By: #### 5 7021-8 ####[facility] [id number] [address] [place] CNOVon 05-25-2024 CNOV Office Visit (FAMPWS ) CHATOLORENZO Cleaning ([id number]) 1955 M Date Time Provider Department 05/25/24 9:00 AM MARK RAMIREZ FAMPWS During your visit today, we recorded the following information about you: Pulse Respiration Blood pressure Weight 58/minute 16/minute 126/78 91.4 kg Mark Ramirez MD 05/25/2024 8:35 AM Signed Chief Complaint Patient presents with: 6 Month Exam Immunizations: Flu vaccination HPI Lorenzodaniel Reis is a 68 year old male who presents here today for 6 month follow up. Does have an advanced directive. Smoking 1ppd, increased. No bowel, GI, or urinary issues. Scheduled for colonoscopy in Jun. Fhx colon cancer. Taking Proscar 5 mg daily. Does not follow with Urology any longer. Thyroid: taking Synthroid 150 mcg daily. No missed dosages Lipid/CAD: Denies any exercise or watching diet but does stay active. Is following with Cardio Dr. Gomez. Taking Lipitor 80 mg daily, tolerating well. HTN: Does not check BP at home. No chest pains, dizziness, or unusual SOB. Taking Lopressor 25 mg 1 pill BID and Effient 10 mg daily. Following with Cardio, had echo and stress test done yesterday due to getting some SOB. Past medical history, appointments, medications, allergies reviewed. Previous Medical History PAST MEDICAL HISTORY Diagnosis Date Acute pulmonary embolism (HCC) 06/2020 unknown cause; pt on Eliquis Benign neoplasm of rectum and anal canal History of peptic ulcer disease Pure hypercholesterolemia Snoring Tobacco use Unspecified hypothyroidism Previous Surgical History PAST SURGICAL HISTORY Procedure Laterality Date COLONOSCOPY FLX DX W/COLLJ SPEC WHEN PFRMD 06/16/2009 Colonoscopy COLONOSCOPY FLX DX W/COLLJ SPEC WHEN PFRMD 08/05/2016 Colonoscopy COLONOSCOPY FLX DX W/COLLJ SPEC WHEN PFRMD 02/15/2018 multiple adenomatous polyps, repeat in 3 years COLONOSCOPY FLX DX W/COLLJ SPEC WHEN PFRMD 12/23/2020 COLSC FLX W/RMVL OF TUMOR POLYP LESION SNARE TQ 10/21/2006 Large polyp at 50cm, 3 small sessile polyps in low rectosigmoid COLSC FLX W/RMVL OF TUMOR POLYP LESION SNARE TQ 06/25/2011 polyp in rectum DIAGNOSIS/HISTORY left 5th finger, laceration repair HERNIA REPAIR HX PAST SURGICAL HISTORY OF Right 1979 right shoulder Dislocated collar bone, ORIF Dr. Kilgore PAST SURGICAL HISTORY OF N/A 08/20/2020 Prostate biopsy RPR PRIMARY OPEN/PRQ RUPTURED ACHILLES W/GRAFT Right 2018 RPR UMBILICAL HRNA 5 YRS/> REDUCIBLE 07/15/2009 with mesh Family History FAMILY HISTORY Problem Relation Age of Onset Alzheimer's Disease Mother Coronary Artery Disease Father [place] Prostate Cancer Father Colon Cancer Father Patient Allergies ALLERGIES Allergen Reactions Bees Swelling Pt has been through desensitization. Current Medications Current Outpatient Medications on File Prior to Visit Medication Sig prasugrel (EFFIENT) 10 mg tab Take 1 tablet by mouth once daily. Start with 60 mg (6 tablets) loading dose after you stop brilinta, then continue with 1 tablet (10 mg) once daily thereafter. finasteride (PROSCAR) 5 mg tablet Take 1 tablet by mouth once daily. atorvastatin (LIPITOR) 80 mg tablet Take 1 tablet by mouth daily at bedtime. levothyroxine (SYNTHROID) 175 mcg tablet Take 1 tablet by mouth once daily. Take on empty stomach. For thyroid albuterol HFA (PROVENTIL HFA, VENTOLIN HFA) 90 mcg/actuation inhaler Shake well then inhale 2 to 4 puffs as instructed every 6 hours as needed for wheezing/shortness of breath. metoprolol tartrate, short acting, (LOPRESSOR) 25 mg tablet Take 1 tablet by mouth two times a day. acetaminophen (TYLENOL) 325 mg tablet Take 2 tablets by mouth every 4 hours as needed for pain or fever (specify). No current facility-administered medications on file prior to visit. Social History Social History Tobacco Use Smoking status: Every Day Current packs/day: 1.00 Average packs/day: 1 pack/day for 53.9 years (53.9 ttl pk-yrs) Types: Cigarettes Start date: 1970 Smokeless tobacco: Never Vaping Use Vaping status: Never Used Substance Use Topics Alcohol use: Not Currently Drug use: No EXAM: BP 126/78 Pulse (!) 58 Resp 16 Wt 91.4 kg (201 lb 8 oz) BMI 29.76 kg/m? General Appearance: Well appearing, alert, in no acute distress, well-hydrated, well nourished. and Overweight. Lungs: Lungs clear to auscultation. No wheezing, rhonchi, rales.. Heart: RRR without murmur, gallop, or rubs. No ectopy. Health Maintenance List Shingrix Vaccine(2 of 2) due on 08/01/2019 Advance Directive Discussion due on 07/18/2023 Lung Cancer Screening due on 12/03/2023 Colorectal Cancer Screening due on 12/24/2023 Influenza Vaccine(1) due on 03/18/2024 Covid-19 Vaccine( season) due on 03/18/2024 LDL Cholesterol due on 11/23/2024 Depression Screening due on 11/23/2024 Anxiety Screening due on 11/23/2024 (more content not included)... Normal [facility] metabolic 2000 panelon 05-25-2024 Albumin [Mass/Vol] 4.1 g/dL Normal 3.9-4.9 [facility] Comment on above: Order Comment: Speci men Type: BLOOD SPECIMENOrdering Facility: [facility] Address: [address] [place] [address] Performed By: #### 2 4331-1, 3016-3, 41239-8, 62064-8 ####[facility]CL[facility] [id number] [place] [address] [place] ALP [Catalytic activity/Vol] 79 U/L Normal 38-113 [facility] Comment on above: Order Comment: Speci men Type: BLOOD SPECIMENOrdering Facility: [facility] Address: [address] [place] [address] Performed By: #### 2 4331-1, 3016-3, 00443-6, 64830-7 ####[facility] [id number] [place] [address] [place] ALT [Catalytic activity/Vol] 14 U/L Normal 10-54 [facility] Comment on above: Order Comment: Speci men Type: BLOOD SPECIMENOrdering Facility: [facility] Address: [address] [place] [address] Performed By: #### 2 4331-1, 3016-3, 89381-2, 77571-9 ####[facility]IA [id number] [place] [address] [place] Anion gap [Moles/Vol] 10 mmol/L Normal 8-15 [facility] Comment on above: Order Comment: Speci men Type: BLOOD SPECIMENOrdering Facility: [facility] Address: [address] [place] [address] Performed By: #### 2 4331-1, 3016-3, 34372-9, 67585-5 ####[facility] [id number] [address] [id number] [address] [place] AST [Catalytic activity/Vol] 18 U/L Normal 14-40 [facility] Comment on above: Order Comment: Speci men Type: BLOOD SPECIMENOrdering Facility: [facility] Address: [address] [place] [address] Performed By: #### 2 4331-1, 3016-3, 74102-8, 75442-6 ####[facility] [id number] [place] [address] [place] Bilirubin [Mass/Vol] 0.5 mg/dL Normal 0.2-1.3 [facility] Comment on above: Order Comment: Speci men Type: BLOOD SPECIMENOrdering Facility: [facility] Address: [address] [place] [address] Performed By: #### 2 4331-1, 6-3, 33370-0, 30012-1 ####[facility] LABIA [id number] [place] [address] [place] Calcium [Mass/Vol] 9.0 mg/dL Normal 8.5-10.2 [facility] Comment on above: Order Comment: Speci men Type: BLOOD SPECIMENOrdering Facility: [facility] Address: [address] [place] [address] Performed By: #### 2 4331-1, 6-3, 57177-3, 16885-7 ####[facility]IA [id number] [place] [address] [place] Chloride [Moles/Vol] 103 mmol/L Normal 98-107 [facility] Comment on above: Order Comment: Speci men Type: BLOOD SPECIMENOrdering Facility: [facility] Address: [address] [place] [address] Performed By: #### 2 4331-1, 3016-3, 93773-4, 45992-7 ####[facility] [id number] [place] [address] [place] CO2 [Moles/Vol] 29 mmol/L Normal 22-30 [facility] Comment on above: Order Comment: Speci men Type: BLOOD SPECIMENOrdering Facility: [facility] Address: [address] [place] [address] Performed By: #### 2 4331-1, 3016-3, 33784-9, 00702-7 ####[facility]CL[facility] [id number] [place] [address] [place] Creatinine [Mass/Vol] 0.86 mg/dL Normal 0.73-1.22 [facility] Comment on above: Order Comment: Speci men Type: BLOOD SPECIMENOrdering Facility: [facility] Address: [address] [place] [address] Performed By: #### 2 4331-1, 3016-3, 32846-3, 45431-8 ####[facility] LABIA [id number] [place] [address] [place] Creatinine and Glomerular filtration rate.predicted panel (S/P/Bld) 94 mL/min/1.73m??? Normal >=60 [facility] Comment on above: Order Comment: Speci men Type: BLOOD SPECIMENOrdering Facility: [facility] Address: [address] [place] [address] Result Comment: Brianda mated Glomerular Filtration Rate (eGFR) is calculated using the 2020 CKD-EPI creatinine equation. This equation utilizes serum creatinine, sex, and age as parameters. The creatinine assay has traceable calibration to isotope dilution-mass spectrometry. Refer to KDIGO guidelines for clinical interpretation. In patients with unstable renal function, e.g. those with acute kidney injury, the eGFR may not accurately reflect actual GFR. Performed By: #### 2 4331-1, 3016-3, 08506-9, 22197-0 ####[facility]CL[facility] [id number] [place] [id number] [place] Glucose [Mass/Vol] 104 mg/dL High 74-99 [facility] Comment on above: Order Comment: Speci men Type: BLOOD SPECIMENOrdering Facility: [facility] Address: [address] [place] [address] Result Comment: The [place] Diabetes Association (ADA) provides guidance for cutoff values for fasting glucose and random glucose. The ADA defines fasting as no caloric intake for at least 8 hours. Fasting plasma glucose results between 100 to 125 mg/dL indicate increased risk for diabetes (prediabetes). Fasting plasma glucose results greater than or equal to 126 mg/dL meet the criteria for diagnosis of diabetes. In the absence of unequivocal hyperglycemia, results should be confirmed by repeat testing. In a patient with classic symptoms of hyperglycemia or hyperglycemic crisis, random plasma glucose results greater than or equal to 200 mg/dL meet the criteria for diagnosis of diabetes. Reference: Standards of Medical Care in Diabetes 2016, [place] Diabetes Association. Diabetes Care. 2016.39(Suppl 1). Performed By: #### 2 4331-1, 3016-3, 05975-3, 23227-8 ####[facility]CL[facility] [id number] [place] [id number] [place] Potassium [Moles/Vol] 4.1 mmol/L Normal 3.7-5.1 [facility] Comment on above: Order Comment: Magdalena berg Type: BLOOD SPECIMENOrdering Facility: [facility] Address: [address] [place] [address] Performed By: #### 2 4331-1, 3016-3, 88015-4, 35331-2 ####[facility] LABIA [id number] [place] [id number] [place] Protein [Mass/Vol] 6.5 g/dL Normal 6.3-8.0 [facility] Comment on above: Order Comment: Magdalena berg Type: BLOOD SPECIMENOrdering Facility: [facility] Address: [address] [place], [place] [id number] Performed By: #### 2 4331-1, 3016-3, 71067-0, 03264-6 ####[facility]CL[facility] [id number] [place] [id number] [place] Sodium [Moles/Vol] 142 mmol/L Normal 136-144 [facility] Comment on above: Order Comment: Speci men Type: BLOOD SPECIMENOrdering Facility: [facility] Address: [address] [place] [address] Performed By: #### 2 4331-1, 3016-3, 65853-4, 68130-9 ####[facility]CL[facility] [id number] [place] [address] [place] Urea nitrogen [Mass/Vol] 11 mg/dL Normal 9-24 [facility] Comment on above: Order Comment: Speci men Type: BLOOD SPECIMENOrdering Facility: [facility] Address: [address] [place] [address] Performed By: #### 2 4331-1, 3016-3, 69045-2, 27772-0 ####[facility]CL[facility] [id number] [place] [address] [place] Lipid 1996 panelon 4 Cholesterol [Mass/Vol] 160 mg/dL Normal <200 [facility] Comment on above: Order Comment: Speci men Type: BLOOD SPECIMENOrdering Facility: [facility] Address: [address] [place] [address] Result Comment: <200 mg/dL, Desirable 200-239 mg/dL, Borderline high >239 mg/dL, High Performed By: #### 2 4331-1, 6-3, 44596-0, 64428-9 ####[facility] [id number] [place] [id number] [place] Cholesterol in HDL [Mass/Vol] 34 mg/dL Low >39 [facility] Comment on above: Order Comment: Speci men Type: BLOOD SPECIMENOrdering Facility: [facility] Address: [address] [place] [address] Result Comment: 40-5 9 mg/dL, Acceptable >59 mg/dL, High: Negative risk factor for coronary heart disease <40 mg/dL, Low: Positive risk factor for coronary heart disease Performed By: #### 2 4331-1, 3016-3, 52127-4, 27193-3 ####[facility]CL[facility] [id number] [place] [address] [place] Cholesterol in LDL [Mass/Vol] 103 mg/dL High <100 [facility] Comment on above: Order Comment: Speci men Type: BLOOD SPECIMENOrdering Facility: [facility] Address: [address] [place] [address] Result Comment: <100 mg/dL, Optimal 100-129 mg/dL, Near optimal/above optimal 130-159 mg/dL, Borderline high 160-189 mg/dL, High >189 mg/dL, Very high Secondary prevention optimal LDL Cholesterol levels are recommended to be < 70 mg/dL Performed By: #### 2 4331-1, 6-3, 58685-8, 03176-6 ####[facility]CL[facility] [id number] [address] [place] Cholesterol in LDL/Cholesterol in HDL [Mass ratio] 3.03 {ratio} High <2.54 [facility] Comment on above: Order Comment: Speci men Type: BLOOD SPECIMENOrdering Facility: [facility] Address: [address] [place] [address] Result Comment: Refe brentce: 1. National Cholesterol Education Program ATP III Guideline At-A-Glance Quick Desk Reference: National Heart, Lung, and Blood [place]. National Institutes of Health. 2001: NIH Publication No. 01-3305. 2. An International Atherosclerosis Society position paper: global recommendations for the management of dyslipidemia: executive summary, Atherosclerosis. 2014: 232(2):410-413. Performed By: #### 2 4331-1, 3016-3, 64349-6, 52529-1 ####[facility]CL[facility] [id number] [place] [address] [place] Cholesterol in VLDL [Mass/Vol] 23 mg/dL Normal <30 [facility] Comment on above: Order Comment: Speci men Type: BLOOD SPECIMENOrdering Facility: [facility] Address: [address] [place] [id number] Performed By: #### 2 4331-1, 3015-3, 79248-8, 75223-8 ####[facility]CL[facility] [id number] [address] [address] [place] Cholesterol non HDL [Mass/Vol] 126 mg/dL Normal <130 [facility] Comment on above: Order Comment: Speci men Type: BLOOD SPECIMENOrdering Facility: [facility] Address: [address] [place] [address] Result Comment: <130 mg/dL, Optimal 130-159 mg/dL, Near optimal/above optimal 160-189 mg/dL, Borderline high 190-219 mg/dL, High >219 mg/dL, Very high Secondary prevention optimal non HDL Cholesterol levels are recommended to be <100 mg/dL Performed By: #### 2 4331-1, 3015-3, 14566-5, 91986-4 ####[facility]CL[facility] [id number] [address] [address] [place] Cholesterol.total/C holesterol in HDL [Mass ratio] 4.71 {ratio} Normal <5.10 [facility] Comment on above: Order Comment: Speci men Type: BLOOD SPECIMENOrdering Facility: [facility] Address: [address] [place] [address] Performed By: #### 2 4331-1, 3015-3, 06467-3, 02637-7 ####[facility] [id number] [address] [address] [place] FASTING TIME 12 hrs Normal [facility] Comment on above: Order Comment: Speci men Type: BLOOD SPECIMENOrdering Facility: [facility] Address: [address] [place] [address] Performed By: #### 2 4331-1, 3015-3, 54908-4, 85646-8 ####[facility]CL[facility] [id number] [place] [address] [place] Triglyceride [Mass/Vol] 116 mg/dL Normal <150 [facility] Comment on above: Order Comment: Speci men Type: BLOOD SPECIMENOrdering Facility: [facility] Address: [address] [place] [address] Result Comment: <150 mg/dL, Normal 150-199 mg/dL, Borderline high 200-499 mg/dL, High >499 mg/dL, Very high Performed By: #### 2 4331-1, 3016-3, 14060-6, 83319-7 ####[facility]CL[facility] [id number] [place] [address] [place] TSH SerPl-aCncon 05-25-2024 TSH Qn 0.675 m[IU]/L Normal 0.270-4.200 [facility] Comment on above: Order Comment: Speci men Type: BLOOD SPECIMENOrdering Facility: [facility] Address: [address] [place] [address] Performed By: #### 2 4331-1, 3016-3, 65001-9, 29040-7 ####[facility]CL[facility] [id number] [place] [id number] [place] ECHOon 05-24-2024 CONCLUSIONS: - Technically difficult exam due to lung interference, bradycardia. - Exam indication: aortic and major arterial disease - The left ventricle is normal in size. Left ventricular systolic function is normal. EF = 67 5% (2D biplane) Grade II left ventricular diastolic dysfunction. - The right ventricle is normal in size. Right ventricular systolic function is normal. - The left atrial cavity is moderately dilated. - The right atrial cavity is mildly dilated. - The visualized aorta is borderline dilated with a maximal dimension of 4.0 cm. - There is mild (1+) mitral regurgitation. - There is no patent foramen ovale as detected by Doppler. - Exam was compared with the prior echocardiographic exam performed on 09-23-21. Diastolic dysfunction has increased from grade 1 to grade 2. The mid ascending aorta measures 4 cm, previously it measured 4.2 cm. * * * Final * * * [facility] Echocardiography Report: Transthoracic Echo [facility] Date of service: 05/24/2024 8:08:06 AM Ordering physician: ESHA HAWTHORNE Indication: aortic and major arterial disease Technologist: Pattie Wang [facility] [[email or web address]] Interpreting physician: Isaac Cope MD PATIENT: Name: MR. LORENZO REIS : 1955 Age: 68 years Gender: M History of coronary artery disease, angina and dyslipidemia. Primary rhythm: sinus. Height: 175.26 cm BSA: 2.11 m Weight: 91.63 kg BMI: 29.8 kg/m Heart rate 47 bpm Blood pressure 119/83 mmHg Technically difficult exam due to lung interference, bradycardia. Color Doppler was utilized to interrogate the cardiac valves assessed and spectral Doppler was utilized to determine the flow velocities and pressure gradients reported in this exam. Myocardial strain analysis was performed in this exam to aid in the assessment of cardiac function. MEASUREMENTS: Value Indexed Normal Max aortic dimension 4.0 cm Ao < 3.8 LV ID (diastole) 5.2 cm (2D) 2.45 cm/m LV ID (systole) 3.4 cm (2D) 1.59 cm/m IVS, leaflet tips 1.1 cm (2D) Posterior wall thickness 1.2 cm (2D) Left ventricular mass 243 g (2D) 115 g/m Global peak long strain -27.9 % LV stroke volume 78 ml (2D biplane) LV end diastolic volume 117 ml (2D biplane) 55.2 ml/m 34<=EDVi<75 LV end systolic volume 39 ml (2D biplane) 18.2 ml/m Ejection Fraction 67 % (2D biplane) EF > 52 FINDINGS: LEFT VENTRICLE The left ventricle is normal in size. Left ventricular systolic function is normal. Global LV myocardial strain is normal. Grade II left ventricular diastolic dysfunction. Mitral annular lateral E/e': 6.8. Mitral annular septal E/e': 8.1. Wall Motion: All scored segments are normal. RIGHT VENTRICLE The right ventricle is normal in size. Right ventricular systolic function is normal. RV systolic tissue Doppler velocity is 16.8 cm/s. Tricuspid annular displacement is 2.7 cm. Estimated right ventricular systolic pressure is likely underestimated due to a weak or incomplete tricuspid regurgitation signal and is, at least, 44 mmHg consistent with mild pulmonary hypertension. Estimated right atrial pressure is 8 mmHg based on IVC assessment. LEFT ATRIUM The left atrial cavity is moderately dilated. Pulmonary Veins: The pulmonary venous pattern showed normal systolic flow. RIGHT ATRIUM The right atrial cavity is mildly dilated. Inferior Vena Cava: The inferior vena cava appears dilated measuring 2.6 cm. The vessel decreases greater than 50 percent with inspiration. MITRAL VALVE There is mild (1+) mitral valve regurgitation. There is mild thickening of the anterior mitral leaflet. The pressure half time is 69 msec. The peak mitral E/A ratio is 1.05. The mitral flow deceleration time is 239 msec. TRICUSPID VALVE The tricuspid valve leaflets are structurally normal. There is trace tricuspid valve regurgitation. AORTIC VALVE There is no aortic valve regurgitation. Tricuspid aortic valve. There is mild thickening of the right and non coronary aortic cusps. PULMONIC VALVE The pulmonic valve was not seen or not interrogated. There is no pulmonic valve regurgitation. AORTA The visualized aorta is borderline dilated. Measurements - Sinus: 3.3 cm. Mid ascending aorta 4.0 cm. INTERATRIAL SEPTUM The interatrial septum is mobile. There is no patent foramen ovale as detected by Doppler. PERICARDIUM There is no pericardial effusion. [facility] Echocardiography Echocardiography Rep ort: Transthoracic Echo [facility] Date of service: 05/24/2024 8:08:06 AM Ordering physician: ESHA HAWTHORNE Indication: aortic and major arterial disease Technologist: Pattie Wang [facility] [[email or web address] Interpreting physician: Isaac Cope MD PATIENT: Name: MR. LORENZO REIS : 1955 Age: 68 years Gender: M History of coronary artery disease, angina and dyslipidemia. Primary rhythm: sinus. Height: 175.26 cm BSA: 2.11 m Weight: 91.63 kg BMI: 29.8 kg/m Heart rate 47 bpm Blood pressure 119/83 mmHg Technically difficult exam due to lung interference, bradycardia. Color Doppler was utilized to interrogate the cardiac valves assessed and spectral Doppler was utilized to determine the flow velocities and pressure gradients reported in this exam. Myocardial strain analysis was performed in this exam to aid in the assessment of cardiac function. MEASUREMENTS: Value Indexed Normal Max aortic dimension 4.0 cm Ao < 3.8 LV ID (diastole) 5.2 cm (2D) 2.45 cm/m LV ID (systole) 3.4 cm (2D) 1.59 cm/m IVS, leaflet tips 1.1 cm (2D) Posterior wall thickness 1.2 cm (2D) Left ventricular mass 243 g (2D) 115 g/m Global peak long strain -27.9 % LV stroke volume 78 ml (2D biplane) LV end diastolic volume 117 ml (2D biplane) 55.2 ml/m 34<=EDVi<75 LV end systolic volume 39 ml (2D biplane) 18.2 ml/m Ejection Fraction 67 % (2D biplane) EF > 52 FINDINGS: LEFT VENTRICLE The left ventricle is normal in size. Left ventricular systolic function is normal. Global LV myocardial strain is normal. Grade II left ventricular diastolic dysfunction. Mitral annular lateral E/e': 6.8. Mitral annular septal E/e': 8.1. Wall Motion: All scored segments are normal. RIGHT VENTRICLE The right ventricle is normal in size. Right ventricular systolic function is normal. RV systolic tissue Doppler velocity is 16.8 cm/s. Tricuspid annular displacement is 2.7 cm. Estimated right ventricular systolic pressure is likely underestimated due to a weak or incomplete tricuspid regurgitation signal and is, at least, 44 mmHg consistent with mild pulmonary hypertension. Estimated right atrial pressure is 8 mmHg based on IVC assessment. LEFT ATRIUM The left atrial cavity is moderately dilated. Pulmonary Veins: The pulmonary venous pattern showed normal systolic flow. RIGHT ATRIUM The right atrial cavity is mildly dilated. Inferior Vena Cava: The inferior vena cava appears dilated measuring 2.6 cm. The vessel decreases greater than 50 percent with inspiration. MITRAL VALVE There is mild (1+) mitral valve regurgitation. There is mild thickening of the anterior mitral leaflet. The pressure half time is 69 msec. The peak mitral E/A ratio is 1.05. The mitral flow deceleration time is 239 msec. TRICUSPID VALVE The tricuspid valve leaflets are structurally normal. There is trace tricuspid valve regurgitation. AORTIC VALVE There is no aortic valve regurgitation. Tricuspid aortic valve. There is mild thickening of the right and non coronary aortic cusps. PULMONIC VALVE The pulmonic valve was not seen or not interrogated. There is no pulmonic valve regurgitation. AORTA The visualized aorta is borderline dilated. Measurements - Sinus: 3.3 cm. Mid ascending aorta 4.0 cm. INTERATRIAL SEPTUM The interatrial septum is mobile. There is no patent foramen ovale as detected by Doppler. PERICARDIUM There is no pericardial effusion. CONCLUSIONS: - Technically difficult exam due to lung interference, bradycardia. - Exam indication: aortic and major arterial disease - The left ventricle is normal in size. Left ventricular systolic function is normal. EF = 67 5% (2D biplane) Grade II left ventricular diastolic dysfunction. - The right ventricle is normal in size. Right ventricular systolic function is normal. - The left atrial cavity is moderately dilated. - The right atrial cavity is mildly dilated. - The visualized aorta is borderline dilated with a maximal dimension of 4.0 cm. - There is mild (1+) mitral regurgitation. - There is no patent foramen ovale as detected by Doppler. - Exam was compared with the prior echocardiographic exam performed on 09-23-21. Diastolic dysfunction has increased from grade 1 to grade 2. The mid ascending aorta measures 4 cm, previously it measured 4.2 cm. * * * Final * * * CC [facility] : [id number] [employer] Normal [facility] CARDIAC PERF STRESS/PHARM on 05-24-2024 [place] CARDIAC PERF STRESS/PHARM * * *Final Report* * * DATE OF EXAM: May 24 2024 11:30AM CARMELLA 0006 - [place] CARDIAC PERF STRESS/PHARM / PROCEDURE REASON: multiple diagnoses * * * * Physician Interpretation * * * * PATIENT: Name: MR. LORENZO REIS Age: 68 years Gender: M CONCLUSIONS: 1. SPECT Perfusion Study: Abnormal. 2. There is mild (<10%) ischemia in the territory of the RCA. 3. There is a small (<10%) fixed perfusion defect in the RCA territory. 4. Left ventricle is normal in size. The left ventricle systolic function is normal. 5. Right ventricle is normal in size. The right ventricle systolic function is normal. 6. This is a low risk scan. Gated Stress IR:3D LVEF % 57 Prior Study Comparison No prior nuclear cardiology exam available for comparison. Nuclear Med Report:1-Day Gated SPECT Myocardial Perfusion with Exercise Stress: Myocardial perfusion imaging was performed at rest 30 to 60 minutes following the IV injection of the radiotracer. One minute prior to peak exercise, the patient was injected IV with the radiotracer. Gated post stress tomographic imaging was performed 10 to 20 minutes later. See administered radiotracer and doses below. [facility] Date of service: 05/24/2024 9:53:54 AM Ordering Physician: ESHA HAWTHORNE. Requesting Physician: Indication: Dyspnea Interpreting physician: Fredrick Carbone MD Previous Cardiovascular Interventions: PCI (2021) Height: 175.26 cm BSA: 2.11 m? Weight: 91.63 kg BMI: 29.8 kg/m? Imaging Protocol Limitation Reason Diaphragmatic attenuation. Exam Type: Rest Stress Radiopharm: Tc-99m Tetrofosmin Tc-99m Tetrofosmin Dosage(mCi): 9.2 28.3 Atten Correction: not performed not performed Stress Agent: Regadenoson 0.4mg Supply provided from [facility] Resting Blood Press: 129/80 mmHg Image Quality The overall study imaging quality was deemed to be fair. The following technical issues were noted: Diaphragmatic attenuation. FINDINGS: Stress IR:3D Gated Stress IR:3D LVEF: 57 % ED Volume: 118 ml ES Volume: 51 ml TID: 1.05 Perfusion Findings Stress IR:3D - Summed Score=10 There is a moderate perfusion defect in the entire inferior wall, mid inferoseptal segment, and basal inferoseptal segment. All remaining scored segments show normal perfusion. Rest IR:3D - Summed Score=4 There is a mild perfusion defect in the inferior wall, mid inferoseptal segment, and basal inferoseptal segment. All remaining scored segments show normal perfusion. Stress IR:3D Rest IR:3D Summed Score=10 Summed Score=4 LEFT VENTRICLE The left ventricle is normal in size. Left ventricular systolic function is normal. Right Ventricle The right ventricle is normal in size. Right ventricle systolic function is normal. 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 LORENZO REIS Age: 68 years Gender: M Height: 175.26 cm BSA: 2.11 m? Weight: 91.63 kg BMI: 29.8 kg/m? Indication: Dyspnea on exertion Stress ECG Conclusion: Conclusion: Normal Stress ECG Summary: The patient's resting heart rate was 45 bpm and blood pressure was 129/80 mmHg. The patient received regadenoson 0.4 mg IVP over approximately 15 seconds followed immediately by injection of nuclear isotope. The test was terminated due to end of protocol. No symptoms provoked during stress. The maximum heart rate was 127 bpm, which is 84% of the predicted heart rate for age. Peak blood pressure was 170/88 mmHg. The double product achieved was [id number]. Previous cardiovascular interventions: PCI (2021) Medications: Last Used EFFIENT PROSCAR LIPITOR SYNTHROID ALBUTEROL INHALER METOPROLOL Resting ECG: Sinus Bradycardia Symptoms at rest: No symptoms Pharamcologic Protocol: Regadenoson - rescue Stress Exercise Table: +------+ +------- -+ +---+---+---+-- --+----+ Stage Speed (MPH) Grade(%) Time (min) HR SYS ROSAURA RPE METS +------+ +------- -+ +---+---+---+-- --+----+ 1 1.7 10.0 3.0 81 160 84 14.0 4.2 +------+ +------- -+ +---+---+---+-- --+----+ 2 2.5 12.0 3.0 107 170 88 16.0 6.1 +------+ +------- -+ +---+---+---+-- --+----+ 3 3.4 14.0 1.4 127 20.0 8.3 +------+ +------- -+ +---+---+---+-- --+----+ 1 72 126 86 +------+ +------- -+ +---+---+---+-- --+----+ 2 76 121 73 +------+ +------- -+ +---+---+---+-- --+----+ 3 72 119 69 +- (more content not included)... Normal [facility] Heart Perfusion W stress and W radionuclide Tavares 05-24-2024 * * *Final Report* * * DATE OF EXAM: May 24 2024 11:30AM CARMELLA 0006 - [place] CARDIAC PERF STRESS/PHARM / PROCEDURE REASON: multiple diagnoses * * * * Physician Interpretation * * * * PATIENT: Name: MR. LORENZO REIS Age: 68 years Gender: M CONCLUSIONS: 1. SPECT Perfusion Study: Abnormal. 2. There is mild (<10%) ischemia in the territory of the RCA. 3. There is a small (<10%) fixed perfusion defect in the RCA territory. 4. Left ventricle is normal in size. The left ventricle systolic function is normal. 5. Right ventricle is normal in size. The right ventricle systolic function is normal. 6. This is a low risk scan. Gated Stress IR:3D LVEF % 57 Prior Study Comparison No prior nuclear cardiology exam available for comparison. Nuclear Med Report:1-Day Gated SPECT Myocardial Perfusion with Exercise Stress: Myocardial perfusion imaging was performed at rest 30 to 60 minutes following the IV injection of the radiotracer. One minute prior to peak exercise, the patient was injected IV with the radiotracer. Gated post stress tomographic imaging was performed 10 to 20 minutes later. See administered radiotracer and doses below. [facility] Date of service: 05/24/2024 9:53:54 AM Ordering Physician: ESHA HAWTHORNE. Requesting Physician: Indication: Dyspnea Interpreting physician: Fredrick Carbone MD Previous Cardiovascular Interventions: PCI (2021) Height: 175.26 cm BSA: 2.11 m Weight: 91.63 kg BMI: 29.8 kg/m Imaging Protocol Limitation Reason Diaphragmatic attenuation. Exam Type: Rest Stress Radiopharm: Tc-99m Tetrofosmin Tc-99m Tetrofosmin Dosage(mCi): 9.2 28.3 Atten Correction: not performed not performed Stress Agent: Regadenoson 0.4mg Supply provided from [facility] Resting Blood Press: 129/80 mmHg Image Quality The overall study imaging quality was deemed to be fair. The following technical issues were noted: Diaphragmatic attenuation. FINDINGS: Stress IR:3D Gated Stress IR:3D LVEF: 57 % ED Volume: 118 ml ES Volume: 51 ml TID: 1.05 Perfusion Findings Stress IR:3D - Summed Score=10 There is a moderate perfusion defect in the entire inferior wall, mid inferoseptal segment, and basal inferoseptal segment. All remaining scored segments show normal perfusion. Rest IR:3D - Summed Score=4 There is a mild perfusion defect in the inferior wall, mid inferoseptal segment, and basal inferoseptal segment. All remaining scored segments show normal perfusion. Stress IR:3D Rest IR:3D Summed Score=10 Summed Score=4 LEFT VENTRICLE The left ventricle is normal in size. Left ventricular systolic function is normal. Right Ventricle The right ventricle is normal in size. Right ventricle systolic function is normal. 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 LORENZO REIS Age: 68 years Gender: M Height: 175.26 cm BSA: 2.11 m Weight: 91.63 kg BMI: 29.8 kg/m Indication: Dyspnea on exertion Stress ECG Conclusion: Conclusion: Normal Stress ECG Summary: The patient's resting heart rate was 45 bpm and blood pressure was 129/80 mmHg. The patient received regadenoson 0.4 mg IVP over approximately 15 seconds followed immediately by injection of nuclear isotope. The test was terminated due to end of protocol. No symptoms provoked during stress. The maximum heart rate was 127 bpm, which is 84% of the predicted heart rate for age. Peak blood pressure was 170/88 mmHg. The double product achieved was [id number]. Previous cardiovascular interventions: PCI (2021) Medications: Last Used EFFIENT PROSCAR LIPITOR SYNTHROID ALBUTEROL INHALER METOPROLOL Resting ECG: Sinus Bradycardia Symptoms at rest: No symptoms Pharamcologic Protocol: Regadenoson - rescue Stress Exercise Table: +------+ +------- -+ +---+---+---+-- --+----+ Stage Speed (MPH) Grade(%) Time (min) HR SYS ROSAURA RPE METS +------+ +------- -+ +---+---+---+-- --+----+ 1 1.7 10.0 3.0 81 160 84 14.0 4.2 +------+ +------- -+ +---+---+---+-- --+----+ 2 (more content not included)... [facility] Provider, Kristyn Villanuevadajuan lindsey King - 05/24/2024 * * *Final Report* * * DATE OF EXAM: May 24 2024 11:30AM CARMELLA 0006 - [place] CARDIAC PERF STRESS/PHARM / PROCEDURE REASON: multiple diagnoses * * * * Physician Interpretation * * * * PATIENT: Name: MR. LORENZO REIS Age: 68 years Gender: M CONCLUSIONS: 1. SPECT Perfusion Study: Abnormal. 2. There is mild (<10%) ischemia in the territory of the RCA. 3. There is a small (<10%) fixed perfusion defect in the RCA territory. 4. Left ventricle is normal in size. The left ventricle systolic function is normal. 5. Right ventricle is normal in size. The right ventricle systolic function is normal. 6. This is a low risk scan. Gated Stress IR:3D LVEF % 57 Prior Study Comparison No prior nuclear cardiology exam available for comparison. Nuclear Med Report:1-Day Gated SPECT Myocardial Perfusion with Exercise Stress: Myocardial perfusion imaging was performed at rest 30 to 60 minutes following the IV injection of the radiotracer. One minute prior to peak exercise, the patient was injected IV with the radiotracer. Gated post stress tomographic imaging was performed 10 to 20 minutes later. See administered radiotracer and doses below. [facility] Date of service: 05/24/2024 9:53:54 AM Ordering Physician: ESHA HAWTHORNE. Requesting Physician: Indication: Dyspnea Interpreting physician: Fredrick Carbone MD Previous Cardiovascular Interventions: PCI (2021) Height: 175.26 cm BSA: 2.11 m Weight: 91.63 kg BMI: 29.8 kg/m Imaging Protocol Limitation Reason Diaphragmatic attenuation. Exam Type: Rest Stress Radiopharm: Tc-99m Tetrofosmin Tc-99m Tetrofosmin Dosage(mCi): 9.2 28.3 Atten Correction: not performed not performed Stress Agent: Regadenoson 0.4mg Supply provided from [facility] Resting Blood Press: 129/80 mmHg Image Quality The overall study imaging quality was deemed to be fair. The following technical issues were noted: Diaphragmatic attenuation. FINDINGS: Stress IR:3D Gated Stress IR:3D LVEF: 57 % ED Volume: 118 ml ES Volume: 51 ml TID: 1.05 Perfusion Findings Stress IR:3D - Summed Score=10 There is a moderate perfusion defect in the entire inferior wall, mid inferoseptal segment, and basal inferoseptal segment. All remaining scored segments show normal perfusion. Rest IR:3D - Summed Score=4 There is a mild perfusion defect in the inferior wall, mid inferoseptal segment, and basal inferoseptal segment. All remaining scored segments show normal perfusion. Stress IR:3D Rest IR:3D Summed Score=10 Summed Score=4 LEFT VENTRICLE The left ventricle is normal in size. Left ventricular systolic function is normal. Right Ventricle The right ventricle is normal in size. Right ventricle systolic function is normal. 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 LORENZO REIS Age: 68 years Gender: M Height: 175.26 cm BSA: 2.11 m Weight: 91.63 kg BMI: 29.8 kg/m Indication: Dyspnea on exertion Stress ECG Conclusion: Conclusion: Normal Stress ECG Summary: The patient's resting heart rate was 45 bpm and blood pressure was 129/80 mmHg. The patient received regadenoson 0.4 mg IVP over approximately 15 seconds followed immediately by injection of nuclear isotope. The test was terminated due to end of protocol. No symptoms provoked during stress. The maximum heart rate was 127 bpm, which is 84% of the predicted heart rate for age. Peak blood pressure was 170/88 mmHg. The double product achieved was 25292. Previous cardiovascular interventions: PCI (2021) Medications: Last Used EFFIENT PROSCAR LIPITOR SYNTHROID ALBUTEROL INHALER METOPROLOL Resting ECG: Sinus Bradycardia Symptoms at rest: No symptoms Pharamcologic Protocol: Regadenoson - rescue Stress Exercise Table: +------+ +------- -+ +---+---+---+-- --+----+ Stage Speed (MPH) Grade(%) Time (min) HR SYS ROSAURA RPE METS +------+ +------- -+ +---+---+---+-- --+----+ 1 1.7 10.0 3.0 81 160 84 14.0 4.2 +------+ +------- -+ +---+---+---+-- --+----+ 2 2.5 12.0 3.0 107 170 88 16.0 6.1 +------+ +------- -+ +---+---+---+-- --+----+ 3 3.4 14.0 1.4 127 20.0 8.3 +------+ +------- -+ +---+---+---+-- --+----+ 1 72 126 86 +------+ +------- -+--- (more content not included)... [facility] Radiology Study observation (narrative) [facility] NM Heart Perfusion W stress and W radionuclide IVOrdered By: [facility] Provider on 05-24-2024 [facility] Wendy 05-23-2024 ALICIAN Telephone (CDLBME) LORENZO REIS ([id number]) 1955 M Date Time Provider Department 05/23/24 MOOSE PARISIE During your visit today, we recorded the following information about you: Allergies As of Date: 05/23/2024 Noted Allergy Reaction BEES 10/14/2005 7 - Swelling Comments: Pt has been through desensitization. Date Reviewed: 05/16/2024 Reviewed by: Hemalatha Garcia LPN - Fully Assessed Prescriptions as of 07/04/2024 - ezetimibe (ZETIA) 10 mg tablet Take 1 tablet by mouth once daily. - prasugrel (EFFIENT) 10 mg tab Take 1 tablet by mouth once daily. Start with 60 mg (6 tablets) loading dose after you stop brilinta, then continue with 1 tablet (10 mg) once daily thereafter. - finasteride (PROSCAR) 5 mg tablet Take 1 tablet by mouth once daily. - atorvastatin (LIPITOR) 80 mg tablet Take 1 tablet by mouth daily at bedtime. - levothyroxine (SYNTHROID) 175 mcg tablet Take 1 tablet by mouth once daily. Take on empty stomach. For thyroid - albuterol HFA (PROVENTIL HFA, VENTOLIN HFA) 90 mcg/actuation inhaler Shake well then inhale 2 to 4 puffs as instructed every 6 hours as needed for wheezing/shortness of breath. - acetaminophen (TYLENOL) 325 mg tablet Take 2 tablets by mouth every 4 hours as needed for pain or fever (specify). Meds Comments as of 10/12/2016: Problem List As Of Date 05/23/2024 Noted Resolved Pure hypercholesterolemia [E78.00] 04/26/2011 Hypothyroidism [E03.9] 10/14/2005 09/25/2021 Mixed hyperlipidemia [E78.2] 10/14/2005 Benign neoplasm of colon [D12.6] 10/21/2006 12/20/2014 Ingrowing nail [L60.0] 06/09/2007 12/20/2014 UMBILICAL HERNIA [K42.9] 02/26/2009 Shoulder arthritis [M19.019] 05/18/2011 Unspecified gastritis and gastroduodenitis with*06/25/2011 12/20/2014 Benign neoplasm of rectum and anal canal [D12.8*06/25/2011 12/20/2014 Family history of prostate cancer [Z80.42] 10/16/2013 Elevated PSA [R97.20] 06/11/2014 BPH (benign prostatic hyperplasia) [N40.0] 06/11/2014 Frequency of micturition [R35.0] 06/11/2014 Acquired hypothyroidism [E03.9] 01/16/2016 Colon cancer screening [Z12.11] 08/05/2016 08/05/2016 Benign non-nodular prostatic hyperplasia [N40.0]08/16/2016 Chronic prostatitis [N41.1] 08/16/2016 Tendonitis, Achilles, right [M76.61] 05/26/2018 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] 05/26/2018 Calcaneal spur, right [M77.31] 05/26/2018 06/28/2018 Post-operative state [Z98.890] 08/11/2018 09/25/2021 Smoker [F17.200] 05/06/2020 History of pulmonary embolism [Z86.711] 05/19/2020 Hypokalemia [E87.6] 05/19/2020 09/25/2021 Flu-like symptoms [R68.89] 05/19/2020 09/25/2021 Lightheadedness [R42] 05/19/2020 09/25/2021 Bilateral pulmonary embolism (HCC) [I26.99] 05/19/2020 10/06/2021 Malnutrition of mild degree (HCC) [E44.1] 05/20/2020 11/12/2022 Obesity, Class I, BMI 30-34.9 [E66.811] 05/20/2020 Pulmonary nodules [R91.8] 05/20/2020 Multiple lacunar infarcts (HCC) [I63.81] 05/21/2020 Nocturia [R35.1] 10/01/2020 Unstable angina (HCC) [I20.0] 09/20/2021 09/25/2021 History of pulmonary embolus (PE) [Z86.711] 09/20/2021 Acute bronchitis [J20.9] 09/21/2021 09/24/2021 2V CAD s/p complex PCI (09/23/21) [I25.10] 09/22/2021 Unstable angina (HCC) [I20.0] 09/26/2021 09/26/2021 Essential hypertension, benign [I10] 06/16/2022 S/P shoulder surgery [Z98.890] 07/02/2022 Neck pain [M54.2] 11/29/2022 History of peptic ulcer disease [Z87.11] 12/21/2023 Encounter Status:Closed by MOOSE PARISI on 07/04/24 [facility] 05-16-2024 [facility] Office Visit (IRVIN ) CHATO,LORENZO Cleaning ([id number]) 1955 M Date Time Provider Department 05/16/24 1:00 PM ESHA HAWTHORNE During your visit today, we recorded the following information about you: Pulse Blood pressure Weight Height 50/minute 118/64 92 kg 1.753 m Esha Hawthorne MD 05/16/2024 2:38 PM [facility] [place] SECTION OF REGIONAL CARDIOLOGY OUTPATIENT VISIT DATE 05/16/2024 OUTPATIENT VISIT TYPE NEW PRIMARY CARE PHYSICIAN: Mark Ramirez [address] [place] [address] HISTORY OF PRESENT ILLNESS: Mr. Reis is a 68 year old male, hx of CAD s/p proximal OM1 09/24/2021 and RCA 09/30/2021, PE, HLD, tobacco use, hypothyroidism, PUD presents for establishment of care visit. He reports SOB with exertion including with walking. He denies chest pain, palpitations, orthopnea, PND, leg swelling, lightheadedness, syncope. Last seen by Dr. Gomez in 09/2021. TTE 2021: EF 59%, 07/18.1 grade 1 DD, trace MR, trace DE, ascending aorta 4.2 cm Prior cath 09/22/2021: LAD 3% diffuse, D1 less than 40% diffuse, percent proximal OM1, 85% mid RCA, diffuse less than 40% PDA and PLV. 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 He states that he is planned for colonoscopy on 05/29. PAST MEDICAL HISTORY Diagnosis Date Acute pulmonary embolism (HCC) 06/2020 unknown cause; pt on Eliquis Benign neoplasm of rectum and anal canal History of peptic ulcer disease Pure hypercholesterolemia Snoring Tobacco use Unspecified hypothyroidism PAST SURGICAL HISTORY Procedure Laterality Date COLONOSCOPY FLX DX W/COLLJ SPEC WHEN PFRMD 06/16/2009 Colonoscopy COLONOSCOPY FLX DX W/COLLJ SPEC WHEN PFRMD 08/05/2016 Colonoscopy COLONOSCOPY FLX DX W/COLLJ SPEC WHEN PFRMD 02/15/2018 multiple adenomatous polyps, repeat in 3 years COLONOSCOPY FLX DX W/COLLJ SPEC WHEN PFRMD 12/23/2020 COLSC FLX W/RMVL OF TUMOR POLYP LESION SNARE TQ 10/21/2006 Large polyp at 50cm, 3 small sessile polyps in low rectosigmoid COLSC FLX W/RMVL OF TUMOR POLYP LESION SNARE TQ 06/25/2011 polyp in rectum DIAGNOSIS/HISTORY left 5th finger, laceration repair HERNIA REPAIR HX PAST SURGICAL HISTORY OF Right 1979 right shoulder Dislocated collar bone, ORIF Dr. Kilgore PAST SURGICAL HISTORY OF N/A 08/20/2020 Prostate biopsy RPR PRIMARY OPEN/PRQ RUPTURED ACHILLES W/GRAFT Right 2018 RPR UMBILICAL HRNA 5 YRS/> REDUCIBLE 07/15/2009 with mesh Social History Tobacco Use Smoking status: Every Day Current packs/day: 1.00 Average packs/day: 1 pack/day for 53.8 years (53.8 ttl pk-yrs) Types: Cigarettes Start date: 1970 Smokeless tobacco: Never Vaping Use Vaping status: Never Used Substance Use Topics Alcohol use: Yes Comment: less than 6 beers a week Drug use: No FAMILY HISTORY Problem Relation Age of Onset Alzheimer's Disease Mother Coronary Artery Disease Father [place] Prostate Cancer Father Colon Cancer Father ALLERGIES Allergen Reactions Bees Swelling Pt has been through desensitization. CURRENT MEDICATIONS: prasugrel (EFFIENT) 10 mg tab Take 1 tablet by mouth once daily. Start with 60 mg (6 tablets) loading dose after you stop brilinta, then continue with 1 tablet (10 mg) once daily thereafter. finasteride (PROSCAR) 5 mg tablet Take 1 tablet by mouth once daily. atorvastatin (LIPITOR) 80 mg tablet Take 1 tablet by mouth daily at bedtime. levothyroxine (SYNTHROID) 175 mcg tablet Take 1 tablet by mouth once daily. Take on empty stomach. For thyroid albuterol HFA (PROVENTIL HFA, VENTOLIN HFA) 90 mcg/actuation inhaler Shake well then inhale 2 to 4 puffs as instructed every 6 hours as needed for wheezing/shortness of breath. metoprolol tartrate, short acting, (LOPRESSOR) 25 mg tablet Take 1 tablet by mouth two times a day. acetaminophen (TYLENOL) 325 mg tablet Take 2 tablets by mouth every 4 hours as needed for pain or fever (specify). PHYSICAL EXAMINATION: BP 118/64 Pulse (!) 50 Ht 175.3 cm (5' 9) Wt 92 kg (202 lb 13.2 oz) SpO2 97% BMI 29.95 kg/m? General: Appears comfortable in no apparent cardiopulmonary distress Neck: No JVD, no bruits CVS: S1, S2, No m/r/g Chest: CTAB Abd: Soft, nontender, no masses, BS present Ext: No pedal edema, pedal pulses 2+ bilaterally Neuro: No focal neurological deficits ASSESSMENT/PLAN: 1. Coronary artery disease due to lipid rich plaque - ICD9: 414.00, 414.3, ICD10: I25.10, I25.83 (primary diagnosis) Status post AUBREY to circumflex and RCA 2021 [facility] Reports shortness of breath with exertion - Obtain nuclear stress test with exercise - Repeat TTE - Continue medical therapy -LDL 89 on 11/24/2023. Recheck lipids and LFTs. Goal LDL less than 70. Plan to add Zetia 10 mg p.o. daily if LDL is 70 or greater and recheck lipids and LFTs in 4 to 6 week (more content not included)... Normal [facility] [id number] 05-16-2024 ECG01 Ventricular Rate : 5 0 BPM Atrial Rate : 50 BPM P-R Interval : 208 ms QRS Duration : 84 ms Q-T Interval : 404 ms QTC Calculation(Bazett) : 368 ms Calculated P [place] : 70 degrees Calculated R [place] : 66 degrees Calculated T [place] : 38 degrees SINUS BRADYCARDIA OTHERWISE NORMAL ECG Confirmed by MD GALARZA QARAB ([id number]) on 07/31/2024 5:47:30 PM NAME : LORENZO REIS PID : [id number] : 1955 Gender : Male Race : ORD : Procedure Date : May 16 2024 13:07:11 Edit Date : Jul 31 2024 17:47:32 Diagnosis: SINUS BRADYCARDIA OTHERWISE NORMAL ECG Confirmed by MD GALARZA QARAB ([id number]) on 07/31/2024 5:47:30 PM Test Reason : Location : 211 : [facility] Overread By : MD GALARZA QARAB Edited By : MD GALARZA QARAB Referred By : MARK RAMIREZ Acquired by : Louie EPPS [facility] Wendy 04-27-2024 CNPN Telephone (SNEHAL) LORENZO REIS ([id number]) 1955 M Date Time Provider Department 04/27/24 JUDSON ALVES During your visit today, we recorded the following information about you: Elise Bryson, LESLEY 04/27/2024 2:06 PM Signed Patient's Bonita calling in stating that the patient would like to reschedule his colonoscopy. Patient currently scheduled for 05/04/24 in [place]. Patient also asking if he would be able to have it done in [place]. Please call patient's at [phone] due to the patient not able to answer his phone at work. LESLEY Carter Breanna 04/30/2024 9:51 AM Signed Sima Mays APRN.CNP You3 minutes ago (9:43 AM) KB Sounds good. The order is changed Sima Hicks APRN.CNP14 minutes ago (9:33 AM) I will get it pushed out after his cardio appt and will let him know we need the appt completed and him cleared before we can proceed with the new [facility] date. Please change order to [facility] [employer] Interpreter Sima Mays APRN.CNP You30 minutes ago (9:17 AM) DARRELL I think he would be appropriate to be done in [place], AFTER his cardiac appt on 05/16 with clearance. I don't have any reason documented why he needs MAC. Thanks, SHIRA [place] Kimberley, APRN.CNP59 minutes ago (8:47 AM) Patients called and asking if procedure can be done here at [facility]. Please advise and change order if appropriate [employer] Interpreter Tamy Pena 04/30/2024 9:51 AM Signed Spoke to patients Bonita and they are aware patients cardiologists appointment on 05/16 in [place] needs to be completed so we may seek the appropriate clearance for patient to proceed. Patient is rescheduled to [facility] 06/28/2024 as patient request. Bonita is aware if patient does NOT complete appointments and does not get cleared we will have to reschedule back to [facility] in [place] [employer] Interpreter Allergies As of Date: 04/27/2024 Noted Allergy Reaction BEES 10/14/2005 7 - Swelling Comments: Pt has been through desensitization. Date Reviewed: 12/26/2023 Reviewed by: Xiomy Camarena, LESLEY - Fully Assessed Reason for Visit: Appointment [186] Prescriptions as of 05/09/2024 - prasugrel (EFFIENT) 10 mg tab Take 1 tablet by mouth once daily. Start with 60 mg (6 tablets) loading dose after you stop brilinta, then continue with 1 tablet (10 mg) once daily thereafter. - finasteride (PROSCAR) 5 mg tablet Take 1 tablet by mouth once daily. - atorvastatin (LIPITOR) 80 mg tablet Take 1 tablet by mouth daily at bedtime. - levothyroxine (SYNTHROID) 175 mcg tablet Take 1 tablet by mouth once daily. Take on empty stomach. For thyroid - albuterol HFA (PROVENTIL HFA, VENTOLIN HFA) 90 mcg/actuation inhaler Shake well then inhale 2 to 4 puffs as instructed every 6 hours as needed for wheezing/shortness of breath. - metoprolol tartrate, short acting, (LOPRESSOR) 25 mg tablet Take 1 tablet by mouth two times a day. - acetaminophen (TYLENOL) 325 mg tablet Take 2 tablets by mouth every 4 hours as needed for pain or fever (specify). Meds Comments as of 10/12/2016: Problem List As Of Date 04/27/2024 Noted Resolved Pure hypercholesterolemia [E78.00] 04/26/2011 Hypothyroidism [E03.9] 10/14/2005 09/25/2021 Mixed hyperlipidemia [E78.2] 10/14/2005 Benign neoplasm of colon [D12.6] 10/21/2006 12/20/2014 Ingrowing nail [L60.0] 06/09/2007 12/20/2014 UMBILICAL HERNIA [K42.9] 02/26/2009 Shoulder arthritis [M19.019] 05/18/2011 Unspecified gastritis and gastroduodenitis with*06/25/2011 12/20/2014 Benign neoplasm of rectum and anal canal [D12.8*06/25/2011 12/20/2014 Family history of prostate cancer [Z80.42] 10/16/2013 Elevated PSA [R97.20] 06/11/2014 BPH (benign prostatic hyperplasia) [N40.0] 06/11/2014 Frequency of micturition [R35.0] 06/11/2014 Acquired hypothyroidism [E03.9] 01/16/2016 Colon cancer screening [Z12.11] 08/05/2016 08/05/2016 Benign non-nodular prostatic hyperplasia [N40.0]08/16/2016 Chronic prostatitis [N41.1] 08/16/2016 Tendonitis, Achilles, right [M76.61] 05/26/2018 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] 05/26/2018 Calcaneal spur, right [M77.31] 05/26/2018 06/28/2018 Post-operative state [Z98.890] 08/11/2018 09/25/2021 Smoker [F17.200] 05/06/2020 History of pulmonary embolism [Z86.711] 05/19/2020 Hypokalemia [E87.6] 05/19/2020 09/25/2021 Flu-like symptoms [R68.89] 05/19/2020 09/25/2021 Lightheadedness [R42] 05/19/2020 09/25/2021 Bilateral pulmonary embolism (HCC) [I26.99] 05/19/2020 10/06/2021 Malnutrition of mild degree (HCC) [E44.1] 05/20/2020 11/12/2022 Obesity, Class I, BMI 30-34.9 [E66.811] 05/20/2020 Pulmonary nodules [R91.8] 05/20/2020 Multiple lacunar infarcts (HCC) [I63.81] 05/21/2020 Nocturia [R35.1] 10/01/2020 Unstable angina (HCC) [I2 (more content not included)... Normal [facility] SCREENING FOR AAAon 11-30 [facility] XR Cervical spine AP and Lat eral and obliqueon 11-15-2022 IMPRESSION: Cervical spine degenerative changes as described above. Ticketing Clerk: PSCB Transcribe Date/Time: Nov 15 2022 4:44P Dictated by : SHIKHA SO MD This examination was interpreted and the report reviewed and electronically signed by: SHIKHA SO MD on Nov 15 2022 4:47PM [facility] DIVISION OF RADIOLOGY * * *Final Report* * * DATE OF EXAM: Nov 12 2022 9:34AM WOX 5311 - XR CERVICAL 4V AP/LAT/OBL / PROCEDURE REASON: Neck pain * * * * Physician Interpretation * * * * EXAM TITLE: XR CERVICAL 4V AP/LAT/OBL EXAM DATE/TIME: 11/12/2022 9:34 AM COMPARISON: None. CLINICAL INDICATION/HISTORY: Neck pain. TECHNIQUE: AP, lateral, swimmer's and oblique views of the cervical spine are presented. FINDINGS: No fractures or subluxations are noted. C5-6 and C6-7 mild disc space narrowing is demonstrated. There is mild osteophyte formation. Questionable C1 arcuate foramen. 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 There appears be left-sided C5-6 and C6-7 neural foraminal narrowing. The prevertebral soft tissues are normal. DIVISION OF RADIOLOGY Provider, Kristyn Reis [facility] - 11/15/2022 * * *Final Report* * * DATE OF EXAM: Nov 12 2022 9:34AM WOX 5311 - XR CERVICAL 4V AP/LAT/OBL / PROCEDURE REASON: Neck pain * * * * Physician Interpretation * * * * EXAM TITLE: XR CERVICAL 4V AP/LAT/OBL EXAM DATE/TIME: 11/12/2022 9:34 AM COMPARISON: None. CLINICAL INDICATION/HISTORY: Neck pain. TECHNIQUE: AP, lateral, swimmer's and oblique views of the cervical spine are presented. FINDINGS: No fractures or subluxations are noted. C5-6 and C6-7 mild disc space narrowing is demonstrated. There is mild osteophyte formation. Questionable C1 arcuate foramen. 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 There appears be left-sided C5-6 and C6-7 neural foraminal narrowing. The prevertebral soft tissues are normal. IMPRESSION IMPRESSION: Cervical spine degenerative changes as described above. Ticketing Clerk: MAT Transcribe Date/Time: Nov 15 2022 4:44P Dictated by : SHIKHA SO MD This examination was interpreted and the report reviewed and electronically signed by: SHIKHA SO MD on Nov 15 2022 4:47PM EST [facility] XR Cervical spine AP and Lat eral and obliqueOrdered By: Ccf Provider on 11-15-2022 [facility] XR Cervical spine AP and Lat eral and obliqueon 11-12-2022 Radiology Study observation (narrative) [facility] XR Shoulder - right 3 Viewso n 09-17-2022 IMPRESSION: Stable arthroplasty Ticketing Clerk: MAT Transcribe Date/Time: Sep 17 2022 8:16A Dictated by : UMER LUEVANO MD This examination was interpreted and the report reviewed and electronically signed by: UMER LUEVANO MD on Sep 17 2022 8:17AM EST [facility] * * *Final Report* * * DATE OF EXAM: Sep 17 2022 7:49AM MDO 5253 - XR SHLDR >/=3V AP/KEIRA AP/OTHR RT / PROCEDURE REASON: multiple diagnoses * * * * Physician Interpretation * * * * PROCEDURE: Right shoulder INDICATION: Chronic right shoulder pain .RIGHT SHOULDER PAIN TECHNIQUE: XR SHLDR >/=3V AP/KEIRA AP/OTHR RT COMPARISON: 08/06/2022 FINDINGS: Stable reverse shoulder arthroplasty without evidence for loosening. No periprosthetic fracture. Chronic changes at the AC joint and distal clavicle as well as remote rib fractures. [facility] Provider, Kristyn Malik - 09/17/2022 * * *Final Report* * * DATE OF EXAM: Sep 17 2022 7:49AM MDO 5253 - XR SHLDR >/=3V AP/KEIRA AP/OTHR RT / PROCEDURE REASON: multiple diagnoses * * * * Physician Interpretation * * * * PROCEDURE: Right shoulder INDICATION: Chronic right shoulder pain .RIGHT SHOULDER PAIN TECHNIQUE: XR SHLDR >/=3V AP/KEIRA AP/OTHR RT COMPARISON: 08/06/2022 FINDINGS: Stable reverse shoulder arthroplasty without evidence for loosening. No periprosthetic fracture. Chronic changes at the AC joint and distal clavicle as well as remote rib fractures. IMPRESSION IMPRESSION: Stable arthroplasty Ticketing Clerk: MAT Transcribe Date/Time: Sep 17 2022 8:16A Dictated by : UMER LUEVANO MD This examination was interpreted and the report reviewed and electronically signed by: UMER LUEVANO MD on Sep 17 2022 8:17AM EST [facility] Radiology Study observation (narrative) [facility] XR Shoulder - right 3 ViewsO rdered By: Ccf Provider on 09-17-2022 [facility] XR Shoulder - right 3 Viewso n 08-06-2022 IMPRESSION: Stable arthroplasty Ticketing Clerk: PSCB Transcribe Date/Time: Aug 06 2022 9:44A Dictated by : UMER LUEVANO MD This examination was interpreted and the report reviewed and electronically signed by: UMER LUEVANO MD on Aug 06 2022 9:45AM EST [facility] * * *Final Report* * * DATE OF EXAM: Aug 06 2022 9:00AM MDO 5253 - XR SHLDR >/=3V AP/KEIRA AP/OTHR RT / PROCEDURE REASON: multiple diagnoses * * * * Physician Interpretation * * * * PROCEDURE: Right shoulder INDICATION: Chronic right shoulder pain .RIGHT SHOULDER PAIN TECHNIQUE: XR SHLDR >/=3V AP/KEIRA AP/OTHR RT COMPARISON: 07/02/2022 FINDINGS: The reverse shoulder arthroplasty remains in satisfactory position without evidence for loosening. Postoperative soft tissue emphysema has resolved. Chronic deformity of the distal clavicle again evident. No acute fracture. Remote right rib fracture. [facility] Provider, Kristyn Malik - 08/06/2022 * * *Final Report* * * DATE OF EXAM: Aug 06 2022 9:00AM MDO 5253 - XR SHLDR >/=3V AP/KEIRA AP/OTHR RT / PROCEDURE REASON: multiple diagnoses * * * * Physician Interpretation * * * * PROCEDURE: Right shoulder INDICATION: Chronic right shoulder pain .RIGHT SHOULDER PAIN TECHNIQUE: XR SHLDR >/=3V AP/KEIRA AP/OTHR RT COMPARISON: 07/02/2022 FINDINGS: The reverse shoulder arthroplasty remains in satisfactory position without evidence for loosening. Postoperative soft tissue emphysema has resolved. Chronic deformity of the distal clavicle again evident. No acute fracture. Remote right rib fracture. IMPRESSION IMPRESSION: Stable arthroplasty Ticketing Clerk: MAT Transcribe Date/Time: Aug 06 2022 9:44A Dictated by : UMER LUEVANO MD This examination was interpreted and the report reviewed and electronically signed by: UMER LUEVANO MD on Aug 06 2022 9:45AM EST [facility] Radiology Study observation (narrative) [facility] XR Shoulder - right 3 ViewsO rdered By: Ccf Provider on 08-06-2022 [facility] XR Shoulder - right 3 Viewso n 07-04-2022 IMPRESSION: Stable arthroplasty Ticketing Clerk: PSCB Transcribe Date/Time: Jul 04 2022 9:54A Dictated by : UMER LUEVANO MD This examination was interpreted and the report reviewed and electronically signed by: UMER LUEVANO MD on Jul 04 2022 9:55AM EST [facility] * * *Final Report* * * DATE OF EXAM: Jul 02 2022 1:19PM ELISSA 5253 - XR SHLDR >/=3V AP/KEIRA AP/OTHR RT / PROCEDURE REASON: multiple diagnoses * * * * Physician Interpretation * * * * PROCEDURE: Right shoulder INDICATION: Chronic right shoulder pain .RIGHT SHOULDER PAIN-POST OP TECHNIQUE: XR SHLDR >/=3V AP/KEIRA AP/OTHR RT COMPARISON: 06/25/2022 FINDINGS: Stable reverse shoulder arthroplasty without evidence for loosening. Postoperative soft tissue emphysema in the subacromial region. Chronic changes of the distal clavicle and AC joint. No acute fracture or dislocation. [facility] Provider, Kristyn Reis [facility] - 07/04/2022 * * *Final Report* * * DATE OF EXAM: Jul 02 2022 1:19PM ELISSA 5253 - XR SHLDR >/=3V AP/KEIRA AP/OTHR RT / PROCEDURE REASON: multiple diagnoses * * * * Physician Interpretation * * * * PROCEDURE: Right shoulder INDICATION: Chronic right shoulder pain .RIGHT SHOULDER PAIN-POST OP TECHNIQUE: XR SHLDR >/=3V AP/KEIRA AP/OTHR RT COMPARISON: 06/25/2022 FINDINGS: Stable reverse shoulder arthroplasty without evidence for loosening. Postoperative soft tissue emphysema in the subacromial region. Chronic changes of the distal clavicle and AC joint. No acute fracture or dislocation. IMPRESSION IMPRESSION: Stable arthroplasty Ticketing Clerk: PSCB Transcribe Date/Time: Jul 04 2022 9:54A Dictated by : UMER LUEVANO MD This examination was interpreted and the report reviewed and electronically signed by: UMER LUEVANO MD on Jul 04 2022 9:55AM EST [facility] XR Shoulder - right 3 ViewsO rdered By: Ccf Provider on 07-04-2022 [facility] XR Shoulder - right 3 Viewso n 07-02-2022 Radiology Study observation (narrative) [facility] CONFIRM BLOOD TYPEon 022 ABO A [facility] Rh Nom (Bld) Positive [facility] TYPE AND SCREEN,30 DAYon ABO A [facility] HIstorical Ab Scr Status Negative [facility] Rh Nom (Bld) Positive [facility] CNDSon 09-26-2021 CNDS HNO ID: [id number] Author: Alondra Phelan MD Service: Hospital Medicine Author Type: Physician Type: Discharge Summary Filed: 09/26/2021 4:50 PM Note Text: DISCHARGE SUMMARY PATIENT NAME: Lorenzo Reis ADMISSION DATE: 09/22/2021 DISCHARGE DATE: 09/26/2021 ATTENDING PHYSICIAN: Alondra Phelan MD Code Status: Full Code PCP: Mark Ramirez MD Highest Readmission Risk Score: 18 The 30 day readmissions risk score is derived from an internally validated risk model which evaluates patient level characteristics, utilization history, medication orders and lab results up until the day of discharge. Patients with a score of 40 or above are considered highest risk for readmission. Specific patient level drivers will be listed at the bottom of the summary. TRANSITIONS OF CARE CRITICAL ISSUES: Stop smoking CHANDLER MEDICATION CHANGES: 1?continue taking baby aspirin (daily) and Brilinta (twice a day) 2?continue taking atorvastatin 80 mg/day LAB MONITORING NEEDED: Not applicable IMAGING FOLLOW-UP: Not applicable LABS AND PROCEDURES PENDING AT DISCHARGE: No pending results. FOLLOW UP: The appointment NEEDS TO BE scheduled. REASON FOR HOSPITALIZATION: Chest tightness PRINCIPAL DIAGNOSIS: Unstable angina SECONDARY DIAGNOSIS: Principal Problem: 2V CAD s/p complex PCI (09/23/21) POA: Yes Active Problems: Mixed hyperlipidemia POA: Yes BPH (benign prostatic hyperplasia) POA: Yes Acquired hypothyroidism POA: Yes Smoker POA: Yes History of pulmonary embolism POA: Yes Obesity, Class I, BMI 30-34.9 POA: Yes Resolved Problems: Hypothyroidism POA: Yes Acute bronchitis POA: Yes Unstable angina (HCC) POA: Yes HOSPITAL COURSE: You were admitted due to chest tightness, suspected acute coronary syndrome Troponins were negative at admission A left heart cath was done at the [facility] and showed good severe coronary obstructions You were transferred to [facility] for cardiology evaluation On September 23, 2 drug-eluting stents were placed And on September 24, another stent was placed on the right coronary artery Today he can be discharged safely home with this following discharge plan 1?continue taking baby aspirin (daily) and Brilinta (twice a day) 2?continue taking atorvastatin 80 mg/day 3?start follow-up with cardiology after discharge (Dr Gomez) 4-schedule an appointment with your PCP, discussed with your PCP resources for smoking cessation 5-light activities for 2 weeks (up to 10 pounds) OPERATIONS/PROCEDURE DURING THIS HOSPITALIZATION: Procedure(s) (LRB): INSERT INTRACORONARY STENT-PER MAJOR VESSEL OR BRANCH (N/A) No other procedures CONSULTS DURING HOSPITALIZATION: Treatment Team: Attending Provider: Alondra Phelan MD Primary Service: [facility] 2 Orders Placed This Encounter Smoking Cessation Education Smoking Cessation Education Smoking Cessation Education Consult Cardiology (PHYSICIAN CONSULT) Follow-Up Appointment Follow-Up Appointment PATIENT CONDITION AT DISCHARGE: Stable ADVANCE CARE PLANNING DISCUSSION (if applicable): N/A DISCHARGE DISPOSITION: Pending Home with Self Care GENERAL: Alert, no distress, cooperative LUNGS: Lungs clear to auscultation CARDIAC: Normal S1 and S2; no rubs, murmurs, or gallops, no signs of fluid overload ABDOMEN: Abdomen soft, non-tender, BS normal EXTREMITIES: no peripheral edema, good peripheral perfusion NEURO: A/O 3 x, grossly normal cognition, normal motor function on upper and lower extremities WOUND/SURGICAL SITE CARE: None SUPPLIES OR EQUIPMENT: None DIET: Resume pre-hospital diet ACTIVITY AND EXERCISE: Light duties for 2 weeks ADDITIONAL INFORMATION: Lorenzo Reis is a 66 y/o male smoker with PMHx significant for HLD, BPH, Hypothyroidism, Hx of PE 2 years ago, tobacco use disorder. Patient presented with pressure in his chest started to happen at rest. Upon presentation to [facility] on 09/20/2021,EKG showed NSR without acute ischemic changes. Trop T < 0.010 x 3. Pt underwent left heart cath on 09/22/2021 which showed mid RCA 85% stenosis and Cx OM 1 with 90% stenosis. On admission KAMERON risk 5 - high risk. Pt was then transferred to [facility] on 09/22/2021 for stent placement. LCX and OM1 AUBREY placed on 09/23, overlapping, involving bifurcation. RCA AUBREY on 09/24. ECHO: normal LV function, EF 60%, dilated aorta 4.2cm, no sig valvular abnormality. Plan for discharge - C/w high intensity statin 80 mg atorvastatin - Continue dual antiplatelet therapy - ticagrelor 90 mg, aspirin 81 mg - As per cardiology plan, will see Dr Gomez in 1-2 weeks -Emphasized regarding smoking cessation He has h/o Previous DVT/PE, in 05/2020, bilateral PE. Eliquis was supposed to be stopped in last April 2021, as per PCP recs, after almost 12 months of anticoagulation. Today (09/26/2021) the patient can be discharged safely in hemodynamically stable condition. Please refer to discharg (more content not included)... [facility] CONSULT PROGon 09-26-2021 CONSULT PROG HNO ID: [id number] Author: Kassy Mcgarry APRN.ALICIA Service: Cardiovascular Medicine Author Type: Nurse Practitioner Type: Consult Progress Note Filed: 09/26/2021 12:33 PM Note Text: PROGRESS NOTE CARDIOLOGY SERVICE SERVICE DATE: 09/26/2021 SERVICE TIME: 12:31 PM Subjective INTERIM HISTORY: ready for discharge. No chest pain, no shortness of breath. bilat groin without pain, swelling or numbness. CARDIAC STATUS: Chest Pain: Improved Dyspnea: Improved Objective PHYSICAL EXAM: Body mass index is 30.33 kg/m?. O2 Therapy: Room Air No data recorded Patient Vitals for the past 24 hrs: BP Temp Temp src Pulse Resp SpO2 09/26/21 1144 111/76 36.3 ?C (97.3 ?F) Oral (!) 57 16 98 % 09/26/21 0743 112/78 36.5 ?C (97.7 ?F) Oral (!) 51 14 96 % 09/26/21 0334 113/66 36.7 ?C (98.1 ?F) Oral (!) 51 14 96 % 09/25/21 2328 101/62 36.8 ?C (98.2 ?F) Oral (!) 56 18 96 % 09/25/212016 122/60 36.6 ?C (97.9 ?F) Oral 62 20 96 % 09/25/21 1935 102/66 36.5 ?C (97.7 ?F) Oral 66 18 95 % 09/25/21 1429 113/67 36.6 ?C (97.9 ?F) Oral (!) 54 18 94 % MEDICATIONS: Current Facility-Administered Medications Medication Dose Route Frequency - acetaminophen 650 mg tab(s) (TYLENOL) 650 mg ORAL q 4 H PRN - finasteride 5 mg tab(s) (PROSCAR) 5 mg ORAL DAILY - albuterol HFA 90 mcg/actuation 2-4 Puff (PROVENTIL HFA, VENTOLIN HFA) 2-4 Puff INHALATION q 6 H PRN - guaiFENesin-dextromethorpha n 100-10 mg/5 mL 10 mL oral liquid (ROBITUSSIN DM) 10 mL ORAL q 4 H PRN - aspirin 81 mg chewable tab(s) 81 mg ORAL DAILY - ticagrelor 90 mg tab(s) (BRILINTA) 90 mg ORAL BID - levothyroxine (SYNTHROID) tab(s) 175 mcg 175 mcg ORAL DAILY (6 AM) - NaCl 0.9% iv flush bag 20 mL INTRAVENOUS PRN - sodium chloride 0.9 % (flush) 3-5 mL (BD POSIFLUSH) 3-5 mL INTRAVENOUS q 12 H - aluminum-magnesium hydroxide-simethicone 200-200-20 mg/5 mL 30 mL (MAALOX,MYLANTA,MAG-AL PLUS) 30 mL ORAL DAILY PRN - ondansetron 4 mg tab(s) (ZOFRAN) 4 mg ORAL q 6 H PRN Or - ondansetron (PF) 4 mg injection (ZOFRAN) 4 mg INTRAVENOUS q 6 H PRN - morphine 2 mg injection 2 mg INTRAVENOUS q 4 H PRN - atropine 0.5 mg injection 0.5 mg INTRAVENOUS PRN - sodium chloride 0.9 % (flush) 2-10 mL (BD POSIFLUSH) 2-10 mL INTRAVENOUS DIRECTED PRN And - perflutren lipid microspheres 1.1 mg/mL 1.3 mL injection (DEFINITY) 1.3 mL INTRAVENOUS DIRECTED PRN - sodium chloride 0.9 % (flush) 3-5 mL (BD POSIFLUSH) 3-5 mL INTRAVENOUS q 12 H - atorvastatin 80 mg tab(s) (LIPITOR) 80 mg ORAL AT BEDTIME DATA: Diagnostic tests reviewed for today's visit: Most recent labs and imaging results. Past 72 Hour Labs: Recent Labs 09/25/21 0538 WBC 8.52 RBC 4.81 HB 14.4 HCT 44.4 MCV 92.3 MCH 29.9 MCHC 32.4 RDWCV 12.4 PLT 227 MPV 10.6 GLUC 100* BUN 9 CREAT 0.89 NA 139 K 4.5 CHLOR 107* CO2 24 CA 8.4* Last Lab Drawn: TSH 0.705 09/22/2021 Triglyceride 96 09/21/2021 HDL Cholesterol 29 09/21/2021 LDL Chol, Sy 86 09/21/2021 Cholesterol, Total 134 09/21/2021 Assessment/Plan Principal Problem: 2V CAD s/p complex PCI (09/23/21) POA: Yes Assessment AND Plan: ready for discharge Our office will arrange follow up with dr Gomez in 1-2 weeks Continue same meds. Active Problems: Mixed hyperlipidemia POA: Yes Assessment AND Plan: on statin Medication and Non-Pharmacologic VTE Prophylaxis/Anticoagulants Anticoagulant AND Antiplatelet Medications (From admission, onward) Start Dose Route Frequency Last Action Ordered Stop 09/23/21899 aspirin 81 mg chewable tab(s) 81 mg ORAL DAILY Given, 09/26 84009/22/211916 -- 09/23/21 09 ticagrelor 90 mg tab(s) (BRILINTA) 90 mg ORAL 2 TIMES DAILY Given, 09/26 84009/22/211916 -- @LP PLINK([id number],1)@ VTE Prophylaxis: VTE prophylaxis appropriate SIGNATURE: Kassy Mcgarry APRN.CNP PATIENT NAME: Lorenzo Reis DATE: September 26, 2021 TIME: 12:31 PM Normal [facility] NURSING PROGon 09-26-2021 NURSING PROG HNO ID: [id number] Author: Tita Valenzuela RN Service: ? Author Type: Registered Nurse Type: Nursing Progress Note Filed: 09/26/2021 8:50 AM Note Text: Nursing Progress Note Patient Name: Lorenzo Reis Patient Location: [id number] 1 Pt AANDOx3, VSS on RA. Independent in room. Denies cp, sob, dizziness, N/V/D. Bilateral groin sites bruised, no hematoma. Pt to discharge today. This note was completed by: Tita Palma [facility] Basic metabolic 2000 panelon 09-25-2021 Anion gap [Moles/Vol] 8 mmol/L Low 9-18 [facility] Comment on above: Order Comment: Speci men Type: BLOOD SPECIMEN Ordering Facility: [facility] Address: [address] [place] [address] Performed By: #### 2 4321-2 #### [facility] CLIA [id number] [address] [place] [address] [place] Calcium [Mass/Vol] 8.4 mg/dL Low 8.5-10.2 [facility] Comment on above: Order Comment: Speci men Type: BLOOD SPECIMEN Ordering Facility: [facility] Address: [address] [place] [address] Performed By: #### 2 4321-2 #### [facility] CLIA [id number] [address] [place] [address] [place] Chloride [Moles/Vol] 107 mmol/L High 97-105 [facility] Comment on above: Order Comment: Speci men Type: BLOOD SPECIMEN Ordering Facility: [facility] Address: [address] [place] [address] Performed By: #### 2 4321-2 #### [facility] CLIA [id number] [address] [place] [address] [place] CO2 [Moles/Vol] 24 mmol/L Normal 22-30 [facility] Comment on above: Order Comment: Speci men Type: BLOOD SPECIMEN Ordering Facility: [facility] Address: [address] [place] [address] Performed By: #### 2 4321-2 #### [facility] CLIA [id number] [address] [place] [address] [place] Creatinine [Mass/Vol] 0.89 mg/dL Normal 0.73-1.22 [facility] Comment on above: Order Comment: Speci men Type: BLOOD SPECIMEN Ordering Facility: [facility] Address: [address] [place] [address] Performed By: #### 2 4321-2 #### [facility] CLIA [id number] ESTIMATED GLOMERULAR FILTRATION RATE 95 mL/min/1.73m??? Normal >=60 [facility] Comment on above: Order Comment: Magdalena berg Type: BLOOD SPECIMEN Ordering Facility: [facility] Address: [address] [place] [address] Result Comment: Brianda mated Glomerular Filtration Rate (eGFR) is calculated using the 2020 CKD-EPI creatinine equation. This equation utilizes serum creatinine, sex, and age as parameters. The creatinine assay has traceable calibration to isotope dilution-mass spectrometry. Refer to KDIGO guidelines for clinical interpretation. In patients with unstable renal function, e.g. those with acute kidney injury, the eGFR may not accurately reflect actual GFR. Performed By: #### 2 4321-2 #### [facility] CLIA [id number] [place] [address] [place] Glucose [Mass/Vol] 100 mg/dL High 74-99 [facility] Comment on above: Order Comment: Magdalena berg Type: BLOOD SPECIMEN Ordering Facility: [facility] Address: [address] [place] [address] Result Comment: The [place] [employer] (ADA) provides guidance for cutoff values for fasting glucose and random glucose. The ADA defines fasting as no caloric intake for at least 8 hours. Fasting plasma glucose results between 100 to 125 mg/dL indicate increased risk for diabetes (prediabetes). Fasting plasma glucose results greater than or equal to 126 mg/dL meet the criteria for diagnosis of diabetes. In the absence of unequivocal hyperglycemia, results should be confirmed by repeat testing. In a patient with classic symptoms of hyperglycemia or hyperglycemic crisis, random plasma glucose results greater than or equal to 200 mg/dL meet the criteria for diagnosis of diabetes. Reference: Standards of Medical Care in Diabetes 2016, [place] [employer] Association. Diabetes Care. 2016.39(Suppl 1). Performed By: #### 2 4321-2 #### [facility] CLIA [id number] [place] [address] [place] Potassium [Moles/Vol] 4.5 mmol/L Normal 3.7-5.1 [facility] Comment on above: Order Comment: Speci men Type: BLOOD SPECIMEN Ordering Facility: [facility] Address: [address] [place] [address] Performed By: #### 2 4321-2 #### [facility] CLIA [id number] [place] Sodium [Moles/Vol] 139 mmol/L Normal 136-144 [facility] Comment on above: Order Comment: Speci men Type: BLOOD SPECIMEN Ordering Facility: [facility] Address: [address] [place] [address] Performed By: #### 2 4321-2 #### [facility] CLIA [id number] [address] [place] [address] STATES OF [facility] Urea nitrogen [Mass/Vol] 9 mg/dL Normal 9-24 [facility] Comment on above: Order Comment: Speci men Type: BLOOD SPECIMEN Ordering Facility: [facility] Address: [address] [place] [address] Performed By: #### 2 4321-2 #### [facility] CLIA [id number] [address] [place] [address] CASE MANAGEMon 09-25-2021 CASE MANAGEM HNO ID: [id number] Author: PATTI Santa Service: Social Work Author Type: Game Programer Type: Care Mgt Progress Note Filed: 09/25/2021 1:11 PM Note Text: CARE MANAGEMENT WEEKEND PLANNING NOTE DISCHARGE OR POSSIBLE DISCHARGE Date/Time: TBD Disposition: Home Transport: Car with Other Concerns: Probable d/c home today if cleared by cardiology. Weekend Furniture Fabricator Pager #: [phone] TONG Flores RN, SIGNATURE: PATTI Santa PATIENT NAME: Lorenzo Reis DATE: September 25, 2021 TIME: 1:10 PM PAGER/CONTACT #: [phone] Normal [facility] CBC panel Auto (Bld)on 09-25 Erythrocyte distribution width (RBC) [Ratio] 12.4 % Normal 11.5-15.0 [facility] Comment on above: Order Comment: Speci men Type: BLOOD SPECIMEN Ordering Facility: [facility] Address: [address] [place] [address] Performed By: #### 5 8410-2 #### [facility] CLIA [id number] [address] [place] [address] OF [place] Hematocrit (Bld) [Volume fraction] 44.4 % Normal 39.0-51.0 [facility] Comment on above: Order Comment: Speci men Type: BLOOD SPECIMEN Ordering Facility: [facility] Address: [address] [place] [address] Performed By: #### 5 8410-2 #### [facility] CLIA [id number] [address] [place] [address] [place] Hemoglobin (Bld) [Mass/Vol] 14.4 g/dL Normal 13.0-17.0 [facility] Comment on above: Order Comment: Speci men Type: BLOOD SPECIMEN Ordering Facility: [facility] Address: [address] [place] [address] Performed By: #### 5 8410-2 #### [facility] CLIA [id number] [address] [place] [address] [place] MCH (RBC) [Entitic mass] 29.9 pg Normal 26.0-34.0 [facility] Comment on above: Order Comment: Speci men Type: BLOOD SPECIMEN Ordering Facility: [facility] Address: [address] [place] [address] Performed By: #### 5 8410-2 #### [facility] CLIA [id number] [address] [place] [address] [place] MCHC (RBC) [Mass/Vol] 32.4 g/dL Normal 30.5-36.0 [facility] Comment on above: Order Comment: Speci men Type: BLOOD SPECIMEN Ordering Facility: [facility] Address: [address] [place] [address] Performed By: #### 5 8410-2 #### [facility] CLIA [id number] [address] [place] [address] [place] MCV (RBC) [Entitic vol] 92.3 fL Normal 80.0-100.0 [facility] Comment on above: Order Comment: Speci men Type: BLOOD SPECIMEN Ordering Facility: [facility] Address: [address] [place] [address] Performed By: #### 5 8410-2 #### [facility] CLIA [id number] [address] [place] [address] [place] Nucleated RBC (Bld) [#/Vol] 10*3/uL Normal <0.01 [facility] Comment on above: Order Comment: Speci men Type: BLOOD SPECIMEN Ordering Facility: [facility] Address: [address] [place] [address] Performed By: #### 5 8410-2 #### [facility] CLIA [id number] [address] [place] [address] [place] Platelet mean volume (Bld) [Entitic vol] 10.6 fL Normal 9.0-12.7 [facility] Comment on above: Order Comment: Speci men Type: BLOOD SPECIMEN Ordering Facility: [facility] Address: [address] [place] [address] Performed By: #### 5 8410-2 #### [facility] CLIA [id number] [address] [place] [address] [place] Platelets (Bld) [#/Vol] 227 10*3/uL Normal 150-400 [facility] Comment on above: Order Comment: Speci men Type: BLOOD SPECIMEN Ordering Facility: [facility] Address: [address] [place] [address] Performed By: #### 5 8410-2 #### [facility] CLIA [id number] [address] [place] [address] [place] RBC (Bld) [#/Vol] 4.81 10*6/uL Normal 4.20-6.00 [facility] Comment on above: Order Comment: Speci men Type: BLOOD SPECIMEN Ordering Facility: [facility] Address: [address] Performed By: #### 5 8410-2 #### [facility] CLIA [id number] WBC (Bld) [#/Vol] 8.52 10*3/uL Normal 3.70-11.00 [facility] Comment on above: Order Comment: Magdalena berg Type: BLOOD SPECIMEN Ordering Facility: [facility] Address: [address] Performed By: #### 5 8410-2 #### [facility] CLIA [id number] CNPNon 09-25-2021 CNPN Telephone (FVPRAD) LORENZO REIS ([id number]) 1955 M Date Time Provider Department 09/25/21 KASSY EDGE During your visit today, we recorded the following information about you: Kassy Edge APRN.CNP 09/25/2021 3:14 PM Signed Discharging tomorrow post PCI. Can you arrange follow up with Dr. Gomez. Make Dr. Gomez aware that he has free 30d supply of Brilinta but after that one month it will be very expensive for him. Thanks. Allergies As of Date: 09/25/2021 Noted Allergy Reaction BEES 10/14/2005 7 - Swelling Comments: Swelling of throat; pt has been through desensition Date Reviewed: 09/25/2021 Reviewed by: RAYMOND Wilks - Fully Assessed Reason for Visit: Appointment [186] Prescriptions as of 09/25/2021 - ticagrelor (BRILINTA) 90 mg tablet Take 1 tablet by mouth twice daily. - acetaminophen (TYLENOL) 325 mg tablet Take 2 tablets by mouth every 4 hours as needed for pain or fever (specify). - aspirin 81 mg chewable tablet Take 1 tablet by mouth once daily. - cefdinir (OMNICEF) 300 mg capsule Take 1 capsule by mouth twice daily for 7 days. - guaiFENesin-dextromethorpha n (ROBITUSSIN DM) 100-10 mg/5 mL syrup Take 10 mL by mouth every 4 hours as needed for cough. - albuterol HFA (PROVENTIL HFA, VENTOLIN HFA) 90 mcg/actuation inhaler INHALE 2-4 PUFFS INSTRUCTED EVERY 6 HOURS NEEDED FOR WHEEZING/SHORTNESS OF BREATH. - atorvastatin (LIPITOR) 20 mg tablet Take 1 tablet by mouth once daily. - levothyroxine (SYNTHROID) 175 mcg tablet Take 1 tablet by mouth once daily. - finasteride (PROSCAR) 5 mg tablet Take 1 tablet by mouth once daily. Facility-Administered Medications as of 09/25/2021 - sodium chloride 0.9 % (flush) 2-10 mL (BD POSIFLUSH) - perflutren lipid microspheres 1.1 mg/mL 1.3 mL injection (DEFINITY) - sodium chloride 0.9 % (flush) 3-5 mL (BD POSIFLUSH) - atorvastatin 80 mg tab(s) (LIPITOR) - acetaminophen 650 mg tab(s) (TYLENOL) - finasteride 5 mg tab(s) (PROSCAR) - albuterol HFA 90 mcg/actuation 2-4 Puff (PROVENTIL HFA, VENTOLIN HFA) - guaiFENesin-dextromethorpha n 100-10 mg/5 mL 10 mL oral liquid (ROBITUSSIN DM) - aspirin 81 mg chewable tab(s) - ticagrelor 90 mg tab(s) (BRILINTA) - levothyroxine (SYNTHROID) tab(s) 175 mcg - NaCl 0.9% iv flush bag - sodium chloride 0.9 % (flush) 3-5 mL (BD POSIFLUSH) - aluminum-magnesium hydroxide-simethicone 200-200-20 mg/5 mL 30 mL (MAALOX,MYLANTA,MAG-AL PLUS) - ondansetron 4 mg tab(s) (ZOFRAN) - ondansetron (PF) 4 mg injection (ZOFRAN) - morphine 2 mg injection - atropine 0.5 mg injection Meds Comments as of 10/12/2016: Problem List As Of Date 09/25/2021 Noted Resolved Pure hypercholesterolemia [E78.00] 04/26/2011 Hypothyroidism [E03.9] 10/14/2005 Mixed hyperlipidemia [E78.2] 10/14/2005 Benign neoplasm of colon [D12.6] 10/21/2006 12/20/2014 Ingrowing nail [L60.0] 06/09/2007 12/20/2014 UMBILICAL HERNIA [K42.9] 02/26/2009 Shoulder arthritis [M19.019] 05/18/2011 Unspecified gastritis and gastroduodenitis with*06/25/2011 12/20/2014 Benign neoplasm of rectum and anal canal [D12.8*06/25/2011 12/20/2014 Family history of prostate cancer [Z80.42] 10/16/2013 Elevated PSA [R97.20] 06/11/2014 BPH (benign prostatic hyperplasia) [N40.0] 06/11/2014 Frequency of micturition [R35.0] 06/11/2014 Acquired hypothyroidism [E03.9] 01/16/2016 Colon cancer screening [Z12.11] 08/05/2016 08/05/2016 Benign non-nodular prostatic hyperplasia [N40.0]08/16/2016 Chronic prostatitis [N41.1] 08/16/2016 Tendonitis, Achilles, right [M76.61] 05/26/2018 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] 05/26/2018 Calcaneal spur, right [M77.31] 05/26/2018 06/28/2018 Post-operative state [Z98.890] 08/11/2018 Smoker [F17.200] 05/06/2020 History of pulmonary embolism [Z86.711] 05/19/2020 Hypokalemia [E87.6] 05/19/2020 Flu-like symptoms [R68.89] 05/19/2020 Lightheadedness [R42] 05/19/2020 Bilateral pulmonary embolism (HCC) [I26.99] 05/19/2020 Malnutrition of mild degree (HCC) [E44.1] 05/20/2020 Obesity, Class I, BMI 30-34.9 [E66.9] 05/20/2020 Pulmonary nodules [R91.8] 05/20/2020 Multiple lacunar infarcts (HCC) [I63.81] 05/21/2020 Nocturia [R35.1] 10/01/2020 Unstable angina (HCC) [I20.0] 09/20/2021 History of pulmonary embolus (PE) [Z86.711] 09/20/2021 Acute bronchitis [J20.9] 09/21/2021 09/24/2021 CAD (coronary artery disease) [I25.10] 09/22/2021 Encounter Status:Closed by KASSY EDGE on 09/25/21 [facility] CONSULT PROGon 09-25-2021 CONSULT PROG HNO ID: [id number] Author: Kassy Edge APRN.WATER PUMP INSTALLER Service: Cardiovascular Medicine Author Type: Nurse Practitioner Type: Consult Progress Note Filed: 09/25/2021 1:48 PM Note Text: PROGRESS NOTE CARDIOLOGY SERVICE SERVICE DATE: September 25, 2021 SERVICE TIME: 10:58 AM ASSESSMENT/PLAN Active Problems: Unstable Angina. s/p LHC at [facility] 09/22/21-severe disease circ OM1 and RCA. s/p complex PCI 09/23 PTCA AUBREY proximal OM and LCx, overlapping, involving bifurcation. s/p RCA stenting 09/24 2D echo normal LV size and function, EF 60%, dilated aorta 4.2cm, no sig valvular abnormality. SBP 90s-100s. HR +/- 60, no ectopy. 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 GDMT limited by hypotension and bradycardia. Will monitor overnight. Increase activity. Fill free 30d supply of Brilinta. Tentative discharge tomorrow. Reviewed diagnosis, PCI, medications, post procedure care and restrictions, avoidance of coughing, lifting, etc. those things that increase intra abdominal pressure. COPD/bronchitis. History of bilateral PE 05/2020. Eliquis was stopped 04/2021. Hx of stroke. Smoking SUBJECTIVE INTERIM HISTORY: Denies chest pain or dyspnea. Mild tenderness to both groins, no actual pain. Has been walking in his room, sitting in the chair. Telemetry NSR/sinus bradycardia. BP low normal. OBJECTIVE PHYSICAL EXAM: BP 96/57 Pulse 55 Temp (Src) 97.7 (Oral) Resp 18 Wt 205 lb 6 oz (93.2kg) SpO2 94% O2 Therapy: Room Air Pleasant, comfortable, not in acute distress. Awake, alert, oriented times 3. Moves all extremities. NECK: Supple, no JVD LUNGS: Clear to auscultation bilaterally. CARDIAC: PMI present, RRR, S1 and S2, no S3 or S4, no additional heart sounds or murmurs. ABDOMEN: Soft, nontender, bowel sounds present. EXTREMITIES: No edema. Both groins site are soft with mild palpation tenderness and ecchymosis. No hematoma. PULSES: Peripheral pulses present. MEDICATIONS: Current Facility-Administered Medications Medication Dose Route Frequency - sodium chloride 0.9 % (flush) 2-10 mL (BD POSIFLUSH) 2-10 mL INTRAVENOUS DIRECTED PRN And - perflutren lipid microspheres 1.1 mg/mL 1.3 mL injection (DEFINITY) 1.3 mL INTRAVENOUS DIRECTED PRN - sodium chloride 0.9 % (flush) 3-5 mL (BD POSIFLUSH) 3-5 mL INTRAVENOUS q 12 H - atorvastatin 80 mg tab(s) (LIPITOR) 80 mg ORAL AT BEDTIME - acetaminophen 650 mg tab(s) (TYLENOL) 650 mg ORAL q 4 H PRN - finasteride 5 mg tab(s) (PROSCAR) 5 mg ORAL DAILY - albuterol HFA 90 mcg/actuation 2-4 Puff (PROVENTIL HFA, VENTOLIN HFA) 2-4 Puff INHALATION q 6 H PRN - guaiFENesin-dextromethorpha n 100-10 mg/5 mL 10 mL oral liquid (ROBITUSSIN DM) 10 mL ORAL q 4 H PRN - aspirin 81 mg chewable tab(s) 81 mg ORAL DAILY - ticagrelor 90 mg tab(s) (BRILINTA) 90 mg ORAL BID - levothyroxine (SYNTHROID) tab(s) 175 mcg 175 mcg ORAL DAILY (6 AM) - NaCl 0.9% iv flush bag 20 mL INTRAVENOUS PRN - sodium chloride 0.9 % (flush) 3-5 mL (BD POSIFLUSH) 3-5 mL INTRAVENOUS q 12 H - aluminum-magnesium hydroxide-simethicone 200-200-20 mg/5 mL 30 mL (MAALOX,MYLANTA,MAG-AL PLUS) 30 mL ORAL DAILY PRN - ondansetron 4 mg tab(s) (ZOFRAN) 4 mg ORAL q 6 H PRN Or - ondansetron (PF) 4 mg injection (ZOFRAN) 4 mg INTRAVENOUS q 6 H PRN - morphine 2 mg injection 2 mg INTRAVENOUS q 4 H PRN - atropine 0.5 mg injection 0.5 mg INTRAVENOUS PRN DATA: Diagnostic tests reviewed for today's visit: Most recent labs and imaging results. Most recent EKG Telemetry Past 72 Hour Labs: CBC, Coags, BMP, Mg, Phos Recent Labs 09/25/21 0538 09/24/21 0715 09/23/21 0834 09/23/21 0134 09/22/211953 WBC 8.52 8.12 7.21 -- -- HB 14.4 15.0 15.3 -- -- HCT 44.4 45.4 47.3 -- -- PLT 227 215 213 -- -- INR -- -- -- -- 1.1 APTT -- -- 52.0* 34.2* 27.2 NA 139 140 138 -- -- K 4.5 4.7 5.2* -- -- CHLOR 107* 105 102 -- -- CO2 24 25 29 -- -- BUN 9 9 12 -- -- CREAT 0.89 0.92 0.95 -- -- GLUC 100* 105* 110* -- -- CA 8.4* 8.7 9.0 -- -- MG -- -- 1.9 -- -- Liver Function, Amylase, AND Lipase Cardiac Enzymes Recent Labs 09/23/21 0834 MB 2.5 TROPT <0.010 SIGNATURE: Kassy Edge CNP PATIENT NAME: Lorenzo Reis DATE: September 25, 2021 TIME: 10:58 AM PAGER/CONTACT #: [facility] NURSING PROGon 09-25-2021 NURSING PROG HNO ID: [id number] Author: Kassy Adhikari RN Service: Nursing Author Type: Registered Nurse Type: Nursing Progress Note Filed: 09/25/2021 8:38 PM Note Text: Nursing Progress Note Patient Name: Lorenzo Reis Patient Location: [id number] 0-0 Daily Note: 1929 Report received from previous nurse, care resumed 1944 Pt made aware that will be moved to new room. Bilateral groin sites free from hematoma or bleeding. Pt declined have dressing removed wanting to wait until can get wet in shower. Right radial site WNL. Tele SB/SR No complaints voiced Monitoring 2009 Pt moved to [address] [place] [address] via wheelchair with transport with all belongings This note was completed by: Kassy Adhikari [facility] NURSING PROG HNO ID: [id number] Author: Ester Hoffman, LESLEY Service: Nursing Author Type: Registered Nurse Type: Nursing Progress Note Filed: 09/25/2021 7:18 PM Note Text: Patient is alert, oriented, and in good spirits this morning. He denies pain or SON, or needs. Bilateral groin incision sites are soft and stable, with no SS hematoma or bleeding. Bilateral sites have mild ecchymosis. Dressings are D AND I. Pulses are Palp throughout and no edema noted. Patient is taking po and ambulating well in his room. Lungs are clear and diminished throughout and no edema noted. VSS and monitor remains SB. Call galvin within reach. Dr. Gramajo in to see patient. He will discharge patient if OK with Cardiology. 1100 No changed. Patient is ambulating well in his room and encouraged to walk in the hallway. 1300 Lunch report given to Alison SUTTON. 1400 Pharmacy called to have 30 day free Brilinta Rx brought to patient. 1530 Brilinta delivered to patient. Lorena Edge aware. 1540 Dr[address] oGmez wants to keep patient overnight, and chat text sent to Dr. Gramajo. Roland aware of plan. 1700 Patient awake and resting in bed watching television. He denies needs. 1900 Report given to Lorena SUTTON. [facility] NURSING PROG HNO ID: [id number] Author: Misa Adam RN Service: Nursing Author Type: Registered Nurse Type: Nursing Progress Note Filed: 09/25/2021 12:35 AM Note Text: Nursing Progress Note Patient Name: Lorenzo Reis Patient Location: [id number] 0-0 Daily Note: Assumed care of pt at 2300: pt alert and resting in bed. Pt denies cp or pressure. Left groin dressing dry and intact, no bleeding or hematoma noted. Pt right groin dressing remains dry and intact, small amount of bruising noted. Pt SB on telemetry. Ivf infusing as ordered. Pt up in the room with a steady gait. Pt call light in reach, safety maintained, wctm. This note was completed by: Misa Adam [facility] BRIEF OP NOTon 09-24-2021 BRIEF OP NOT HNO ID: [id number] Author: Danna Gomez MD Service: Cardiovascular Disease Author Type: Physician Type: Brief Op Note Filed: 09/24/2021 6:54 PM Note Text: successful stent of rca [facility] Basic metabolic 2000 panelon 09-24-2021 Anion gap [Moles/Vol] 10 mmol/L Normal 9-18 [facility] Comment on above: Order Comment: Speci men Type: BLOOD SPECIMENOrdering Facility: [facility] Address: [address] [place] [id number] Performed By: #### 2 4321-2 ####[facility] [id number] [place] [address] [place] Calcium [Mass/Vol] 8.7 mg/dL Normal 8.5-10.2 [facility] Comment on above: Order Comment: Speci men Type: BLOOD SPECIMENOrdering Facility: [facility] Address: [address] [place] [address] Performed By: #### 2 4321-2 ####[facility] [id number] [place] [id number] [place] Chloride [Moles/Vol] 105 mmol/L Normal 97-105 [facility] Comment on above: Order Comment: Speci men Type: BLOOD SPECIMENOrdering Facility: [facility] Address: [address] [place] [address] Performed By: #### 2 4321-2 ####[facility] [id number] [place] [id number] [place] CO2 [Moles/Vol] 25 mmol/L Normal 22-30 [facility] Comment on above: Order Comment: Speci men Type: BLOOD SPECIMENOrdering Facility: [facility] Address: [address] [place] [address] Performed By: #### 2 4321-2 ####[facility]ORY[facility] [id number] [place] [id number] [place] Creatinine [Mass/Vol] 0.92 mg/dL Normal 0.73-1.22 [facility] Comment on above: Order Comment: Speci men Type: BLOOD SPECIMENOrdering Facility: [facility] Address: [address] [place] [address] Performed By: #### 2 4321-2 ####[facility] [id number] [address] OF [place] ESTIMATED GLOMERULAR FILTRATION RATE 92 mL/min/1.73m??? Normal >=60 [facility] Comment on above: Order Comment: Speci men Type: BLOOD SPECIMENOrdering Facility: [facility] Address: [address] [place] [address] Result Comment: Brianda mated Glomerular Filtration Rate (eGFR) is calculated using the 2020 CKD-EPI creatinine equation. This equation utilizes serum creatinine, sex, and age as parameters. The creatinine assay has traceable calibration to isotope dilution-mass spectrometry. Refer to KDIGO guidelines for clinical interpretation. In patients with unstable renal function, e.g. those with acute kidney injury, the eGFR may not accurately reflect actual GFR. Performed By: #### 2 4321-2 ####[facility] [id number] [place] [id number] [place] Glucose [Mass/Vol] 105 mg/dL High 74-99 [facility] Comment on above: Order Comment: Magdalena morena Type: BLOOD SPECIMENOrdering Facility: [facility] Address: [address] [place] [address] Result Comment: The [place] Diabetes [employer] (ADA) provides guidance for cutoff values for fasting glucose and random glucose. The ADA defines fasting as no caloric intake for at least 8 hours. Fasting plasma glucose results between 100 to 125 mg/dL indicate increased risk for diabetes (prediabetes). Fasting plasma glucose results greater than or equal to 126 mg/dL meet the criteria for diagnosis of diabetes. In the absence of unequivocal hyperglycemia, results should be confirmed by repeat testing. In a patient with classic symptoms of hyperglycemia or hyperglycemic crisis, random plasma glucose results greater than or equal to 200 mg/dL meet the criteria for diagnosis of diabetes. Reference: Standards of Medical Care in Diabetes 2016, [place] [employer] Association. Diabetes Care. 2016.39(Suppl 1). Performed By: #### 2 4321-2 ####[facility] [id number] [place] [address] [place] Potassium [Moles/Vol] 4.7 mmol/L Normal 3.7-5.1 [facility] Comment on above: Order Comment: Magdalena berg Type: BLOOD SPECIMENOrdering Facility: [facility] Address: [address] [place] [address] Performed By: #### 2 4321-2 ####[facility] [id number] [place] [id number] [place] Sodium [Moles/Vol] 140 mmol/L Normal 136-144 [facility] Comment on above: Order Comment: Magdalena morena Type: BLOOD SPECIMENOrdering Facility: [facility] Address: [address] [place] [address] Performed By: #### 2 4321-2 ####[facility] [id number] [address] [place] [facility] Urea nitrogen [Mass/Vol] 9 mg/dL Normal 9-24 [facility] Comment on above: Order Comment: Speci men Type: BLOOD SPECIMENOrdering Facility: [facility] Address: [address] [place] [address] Performed By: #### 2 4321-2 ####[facility] [id number] [place] [id number] [facility] CASE MANAGEMon 09-24-2021 CASE MANAGEM HNO ID: [id number] Author: PATTI Santa Service: Social Work Author Type: Game Programer Type: Care Mgt Progress Note Filed: 09/24/2021 9:06 AM Note Text: CARE MANAGEMENT PROGRESS NOTE SERVICE DATE: 09/24/2021 SERVICE TIME: 9:05 AM LOS: 2 days Needs Prior to Discharge: To Be Determined Pt had an ECHO completed yesterday. Going to the [employer] [facility] again today. Plan for home with no skilled needs at d/c. SW will remain available. SIGNATURE: PATTI Santa PATIENT NAME: Lorenzo Reis DATE: September 24, 2021 TIME: 9:05 AM PAGER/CONTACT #: [phone] Normal [facility] CBC panel Auto (Bld)on 09-24 Erythrocyte distribution width (RBC) [Ratio] 12.4 % Normal 11.5-15.0 [facility] Comment on above: Order Comment: Speci men Type: BLOOD SPECIMENOrdering Facility: [facility] Address: [address] [place] [address] Performed By: #### 5 8410-2 ####[facility] LABORATORYCLIA [id number] [place] [id number] [facility] Hematocrit (Bld) [Volume fraction] 45.4 % Normal 39.0-51.0 [facility] Comment on above: Order Comment: Speci men Type: BLOOD SPECIMENOrdering Facility: [facility] Address: [address] [place] [address] Performed By: #### 5 8410-2 ####[facility] LABORATORYCLIA [id number] [address] Hemoglobin (Bld) [Mass/Vol] 15.0 g/dL Normal 13.0-17.0 [facility] Comment on above: Order Comment: Speci men Type: BLOOD SPECIMENOrdering Facility: [facility] Address: [address] [place] [address] Performed By: #### 5 8410-2 ####[facility] LABORATORYCLIA [id number] [address] MCH (RBC) [Entitic mass] 29.8 pg Normal 26.0-34.0 [facility] Comment on above: Order Comment: Speci men Type: BLOOD SPECIMENOrdering Facility: [facility] Address: [address] [place] [address] Performed By: #### 5 8410-2 ####[facility] LABORATORYCLIA [id number] [address] MCHC (RBC) [Mass/Vol] 33.0 g/dL Normal 30.5-36.0 [facility] Comment on above: Order Comment: Speci men Type: BLOOD SPECIMENOrdering Facility: [facility] Address: [address] [place] [address] Performed By: #### 5 8410-2 ####[facility] LABORATORYCLIA [id number] [address] [place] MCV (RBC) [Entitic vol] 90.1 fL Normal 80.0-100.0 [facility] Comment on above: Order Comment: Speci men Type: BLOOD SPECIMENOrdering Facility: [facility] Address: [address] [place] [address] Performed By: #### 5 8410-2 ####[facility] LABORATORYCLIA [id number] [address] Nucleated RBC (Bld) [#/Vol] 10*3/uL Normal <0.01 [facility] Comment on above: Order Comment: Speci men Type: BLOOD SPECIMENOrdering Facility: [facility] Address: [address] [place], [place] [address] Performed By: #### 5 8410-2 ####[facility] LABORATORYCLIA [id number] [address] [place] [facility] Platelet mean volume (Bld) [Entitic vol] 10.8 fL Normal 9.0-12.7 [facility] Comment on above: Order Comment: Speci men Type: BLOOD SPECIMENOrdering Facility: [facility] Address: [address] [place] [address] Performed By: #### 5 8410-2 ####[facility] LABORATORYCLIA [id number] [place] [address] [facility] [place] Platelets (Bld) [#/Vol] 215 10*3/uL Normal 150-400 [facility] Comment on above: Order Comment: Speci men Type: BLOOD SPECIMENOrdering Facility: [facility] Address: [address] [place] [address] Performed By: #### 5 8410-2 ####[facility] LABORATORYCLIA [id number] [place] [address] [place] RBC (Bld) [#/Vol] 5.04 10*6/uL Normal 4.20-6.00 [facility] Comment on above: Order Comment: Speci men Type: BLOOD SPECIMENOrdering Facility: [facility] Address: [address] [place] [address] Performed By: #### 5 8410-2 ####[facility] LABORATORYCLIA [id number] [place] [address] [place] WBC (Bld) [#/Vol] 8.12 10*3/uL Normal 3.70-11.00 [facility] Comment on above: Order Comment: Speci men Type: BLOOD SPECIMENOrdering Facility: [facility] Address: [address] [place] [address] Performed By: #### 5 8410-2 ####[facility] LABORATORYCLIA [id number] [address] OF [facility] NURSING PROGon 03-10-2022 NURSING PROG HNO ID: [id number] Author: Ester Hoffman RN Service: Nursing Author Type: Registered Nurse Type: Nursing Progress Note Filed: 09/24/2021 7:57 PM Note Text: Patient is alert, oriented, in good spirits, and denies CP or SOB this morning. He is ambulating well in his room. NSS infusing at 100 ml/hr. Right groin dressing is D AND I and incision site is soft and stable with no SS hematoma or bleeding. There is dark ecchymosis at site and patient states that the area is tender when he sits up. Pulses are palp throughout and no edema noted. Patient will be NPO after breakfast for acardiac cath with Dr. Gomez at 1500. VSS and monitor SR. Call galvin within reach. 1030 Jyoti Ritchie CNP in to see patient. 1245 Lunch report given to Riana SUTTON. 1350 Dr. Gomez in to see patient. 1430 Family visiting. Patient resting in bed and in good spirits. 1648 Pre op report given to judson RN. 1700 Patient calm and denies pain or needs at time of transport to [facility]. 1855 Post op report from aPttie SUTTON. 1913 Patient is alert, oriented and pleasant upon return to [facility] from [facility].He denies pain or SOB. Oxygen at 2L/NC from lab. VSS and monitor SB. Left groin incision site is soft with no SS hematoma, bleeding, or ecchymosis. Pulses are palp throughout and no edema noted. Patient is taking sips of water without dificulty . Dr. Gomez in to see patient and his family. 1930 Report given to José Antonio SUTTON. Call galvin within reach. Normal [facility] OPERATIVE NOon 09-24-2021 OPERATIVE NO HNO ID: [id number] Author: Danna Gomez MD Service: Cardiovascular Disease Author Type: Physician Type: Operative Report Filed: 09/30/2021 9:15 AM Note Text: RETAIL ASSOCIATE MANAGER BILINGUAL PROCEDURE REPORT SERVICE DATE: 09/24/2021 SERVICE TIME: LENS POLISHER: Danna Gomez MD ATTENDING: Alondra Phelan MD PRIMARY CARE PHYSICIAN: Mark Ramirez MD REFERRING PROVIDER: [place] MONGOLIAN STUDY OF HEALTH and AGING SCALE:2=Well CARDIOVASCULAR INSTABILITY:No PRE-PROCEDURE DIAGNOSIS: 1. Angina, Unstable POST PROCEDURE DIAGNOSIS: 1. Successful PCI of RCA PROCEDURE: 1. Angioplasty and Synergy (Drug Eluting Stent) Placement in Mid RCA , complex percutaneous coronary intervention, need to use several wires and microcatheter MODERATE SEDATION: Moderate Sedation provided by Cardiology Nursing Staff. Moderate sedation consisting of continuous ECG, pulse oximetry and cardiopulmonary monitoring was performed by the Cardiology Nurse, overseen by supervising physician, for an intra-service time of 2 hr. 0 min. Sedative Medications: Drug: Versed Dose: 1 mg Route: IV Drug: Fentanyl Dose: 75 mcg Route: IV PRIORITY AT TIME OF PROCEDURE: Elective SITE OF ENTRY: Groin:Right CONTRAST: Omnipaque 350 mg Iodine/mL (iohexol injection, solution): 175 mL PERCUTANEOUS CORONARY INTERVENTION: The catheterization angiogram was reviewed affirming the patient was indicated for PCI. The patient was taken to the cardiac laborer egg producing farm where the entry site was prepped and draped in a sterile manner. Heparin was given for anticoagulation. Under local anesthesic with 2% Lidocaine, the vessel was cannulated with micropuncture technique using an arterial needle and Ultrasound was used to visualize and guide the entry into the vessal and a 6F sheath was introduced. A guiding catheter was advanced under fluoroscopy and the vessel was engaged. Using standard protocol, angioplasty was performed and cardiac stent(s) were placed in the following vessel(s). ADDITIONAL PROCEDURES RCA Lesion Type: Class C Guiding Catheter(s): XBRCA Pre Dilatation Balloon Size: 2.0 mm X 15 mm 99% Stenosis Location: Mid Pre KAMERON Blood Flow: 3 Mid Stent Placed: Type: Synergy (Drug Eluting Stent) Size: 2.5 mm Length: 20 mm Post Dilatation Balloon Size: 3.5 mm X 15 mm Proximal Tandem Stent Placed: Type: Synergy (Drug Eluting Stent) Size: 3.0 mm Length: 12 mm Post Dilatation Balloon Size: 3.5 mm X 12 mm Post KAMERON Blood Flow: 3 Result: Successful. It was very complex case required very long time, using different wires, and micro cath. After several manipulation I managed to cross the lesion The sheath was removed and hemostatsis was established using Perclose closure device. There was no bleeding at the end of the procedure. The pt was returned to the recovery room in a stable condition. ESTIMATED BLOOD LOSS: Less Than Minimal Unless Noted Here. COMPLICATIONS: None SPECIMENS: No specimens obtained unless noted here. CONDITION: Stable RECOMMENDATIONS: Follow protocol of post-op orders. beforeAfter SIGNATURE: Danna Gomez MD PATIENT NAME: Lorenzo Reis DATE: September 30, 2021 TIME: 9:06 AM [facility] PT EDon 09-24-2021 PT ED HNO ID: [id number] Author: Mary Nova RN Service: Cardiac Rehab Author Type: Registered Nurse Type: Patient Education Filed: 09/24/2021 10:58 AM Note Text: CARDIAC REHABILITATION PATIENT EDUCATION PROGRESS NOTE Name: Lorenzo Reis Date of Service: 09/24/2021 Time of Service: 1000 ASSESSMENT: Risk Factors Identified: Family History Gender Smoker: # of packs per day: 1. Total Years of Smokin. Significant Medical History: BPH, hx of PE RECOMMENDATIONS: Patient interested in Phase II Outpatient Cardiac Rehab: Yes. Facility Preferred: closer to home DIAGNOSIS: Percutaneous Cardiac Intervention: AUBREY PCI Teaching Points: -Basic Anatomy and Disease Process -Personal Modifiable Risk Factor Identification -Activity/Physical Exercise Recommendations -Prescribed Medication Reviewed -Smoking Advice Counseling -When patient should call provider -Outpatient Cardiac Rehabilitation READINESS TO LEARN: Cognitive Ability: Alert and Oriented Motivation to Learn: Interested Family Support: None - Unavailable/disinterested Instruction Provided To: Patient Patient Learns Best By: Individual Instruction, Written Instruction - Hand-outs and Verbal Instruction Factors Affecting Learning: None Physical Limitations Affecting Learning: None LEARNING RESPONSE: Method Of Instruction: Individual instruction Patient/Family Response: Verbalizes understanding of: all recommendations Follow-up Plan: No further educational needs identified at this time. Instructional Aids Used: Anatomical Model/Drawing Cardiac Rehabilitation Brochure Educational Binder List of [facility] Cardiac Rehab Programs Outpatient Diet/Nutrition Class Invitation Signature: Mary nova RN Pager: torri Date: September 24, 2021 Time: 10:54 AM [facility] Basic metabolic 2000 panelon 09-23-2021 Anion gap [Moles/Vol] 7 mmol/L Low 9-18 [facility] Comment on above: Order Comment: Speci men Type: BLOOD SPECIMENOrdering Facility: [facility] Address: [address] [place] [id number] Performed By: #### T STEPHANIE, MBE, 16520-6, , PROCAL ####[facility] LABORATORYCLIA [id number] [place] [id number] [place] Calcium [Mass/Vol] 9.0 mg/dL Normal 8.5-10.2 [facility] Comment on above: Order Comment: Speci men Type: BLOOD SPECIMENOrdering Facility: [facility] Address: [address] [place] [address] Performed By: #### T STEPHANIE, MBE, 32018-7, , PROCAL ####[facility] LABORATORYCLIA [id number] [place] [address] [place] Chloride [Moles/Vol] 102 mmol/L Normal 97-105 [facility] Comment on above: Order Comment: Speci men Type: BLOOD SPECIMENOrdering Facility: [facility] Address: [address] [place] [phone] Performed By: #### T STEPHANIE, MBE, 67285-6, , PROCAL ####[facility] LABORATORYCLIA [id number] [place] [id number] [place] CO2 [Moles/Vol] 29 mmol/L Normal 22-30 [facility] Comment on above: Order Comment: Speci men Type: BLOOD SPECIMENOrdering Facility: [facility] Address: [address] [place] [address] Performed By: #### T STEPHANIE, MBE, 12843-8, , PROCAL ####[facility] LABORATORYCLIA [id number] [place] [id number] [place] Creatinine [Mass/Vol] 0.95 mg/dL Normal 0.73-1.22 [facility] Comment on above: Order Comment: Speci men Type: BLOOD SPECIMENOrdering Facility: [facility] Address: [address] [place] [address] Performed By: #### T STEPHANIE, MBE, 65091-2, , PROCAL ####[facility] LABORATORYCLIA [id number] [place] [address] [place] ESTIMATED GLOMERULAR FILTRATION RATE 88 mL/min/1.73m??? Normal >=60 [facility] Comment on above: Order Comment: Magdalena berg Type: BLOOD SPECIMENOrdering Facility: [facility] Address: [address] [place], [place] [id number] Result Comment: Brianda mated Glomerular Filtration Rate (eGFR) is calculated using the 2020 CKD-EPI creatinine equation. This equation utilizes serum creatinine, sex, and age as parameters. The creatinine assay has traceable calibration to isotope dilution-mass spectrometry. Refer to KDIGO guidelines for clinical interpretation. In patients with unstable renal function, e.g. those with acute kidney injury, the eGFR may not accurately reflect actual GFR. Performed By: #### T BENJY BROWN, 19984-5, , PROCAL ####[facility] LABORATORYCLIA [id number] [place] [id number] [place] Glucose [Mass/Vol] 110 mg/dL High 74-99 [facility] Comment on above: Order Comment: Magdalena berg Type: BLOOD SPECIMENOrdering Facility: [facility] Address: [address] [place] [address] Result Comment: The [place] Diabetes Association (ADA) provides guidance for cutoff values for fasting glucose and random glucose. The ADA defines fasting as no caloric intake for at least 8 hours. Fasting plasma glucose results between 100 to 125 mg/dL indicate increased risk for diabetes (prediabetes). Fasting plasma glucose results greater than or equal to 126 mg/dL meet the criteria for diagnosis of diabetes. In the absence of unequivocal hyperglycemia, results should be confirmed by repeat testing. In a patient with classic symptoms of hyperglycemia or hyperglycemic crisis, random plasma glucose results greater than or equal to 200 mg/dL meet the criteria for diagnosis of diabetes. Reference: Standards of Medical Care in Diabetes 2016, [place] Diabetes Association. Diabetes Care. 2016.39(Suppl 1). Performed By: #### T BENJY BROWN, 33662-4, , PROCAL ####[facility] LABORATORYCLIA [id number] [place] [id number] [place] Potassium [Moles/Vol] 5.2 mmol/L High 3.7-5.1 [facility] Comment on above: Order Comment: Speci men Type: BLOOD SPECIMENOrdering Facility: [facility] Address: [address] [place] [address] Performed By: #### T BENJY BROWN, , , PROCAL ####[facility] LABORATORYCLIA [id number] [place] [id number] [place] Sodium [Moles/Vol] 138 mmol/L Normal 136-144 [facility] Comment on above: Order Comment: Speci men Type: BLOOD SPECIMENOrdering Facility: [facility] Address: [address] [place] [address] Performed By: #### T BENJY BROWN, , , PROCAL ####[facility] LABORATORYCLIA [id number] [address] [place] Urea nitrogen [Mass/Vol] 12 mg/dL Normal 9-24 [facility] Comment on above: Order Comment: Speci men Type: BLOOD SPECIMENOrdering Facility: [facility] Address: [address] [place] [address] Performed By: #### Kenn BROWN MBE, , , PROCAL ####[facility] LABORATORYCLIA [id number] [address] OF [facility] CASE MGT INIT ASSESon 2021 CASE MGT INIT ASSES HNO ID: [id number] Author: Rosalinda De Santiago RN Service: ? 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 Last discharge within 30 days: No Advance Directive: Current Advance Directive: Living Will (Explained how to have scanned to EMR) Health LiteracyHow often do you need to have someone help you when you read instructions, pamphlets, or other written material from your doctor or pharmacy? : 2 - Rarely How confident are you filling out medical forms by yourself?: 2 - Quite a bit If Patient scores > 3 on either question, the following interventions were put into place:: Patient did not score > 3 on either question. Baseline Mental Status Prior to this Illness what was the patient's Baseline Mental Status?: Alert AND Oriented Prior to this illness, has anyone described the patient having any of the following behaviors?: Not Applicable Relationship of the informant to the patient:: Self Functional Status: Independent Does Patient Currently Receive Any Community Services or Home Care?: None Equipment Prior to Admission: None Has the Patient Been in a Senior Care Facility in the Past 30 days?: No SOCIAL: Living Arrangements: Home Lives With: Spouse Financial Resources: Employed Primary Contact: Extended Emergency Contact Information Primary Emergency Contact: Bonita Reis Address: [address] [place] [address] Mobile Relation: Spouse Contact Resources: Family Family Name/Phone: Bonita Reis () [phone] Caregiver AssessmentCaregiver is ready, willing and able to meet the patient's needs as recommended by the inter-professional team:: Other: See Comment (TBD) Does the patient have an acute stroke diagnosis, or has the patient had a stroke during this admission?: No Patient's perception of need for this admission: chest pain Medication Adherance I am convinced of the importance of my prescription medication: 0 - Agree Mostly I worry that my prescription medication will do more harm than good to me : 0 - Disagree Mostly I feel financially burdened by my [id number] expenses for my prescription medication:: 0 - Disagree Mostly Risk Score: 0 Patient is categorized as: Low risk < 2 Are you interested in bedside delivery of your medications? No [facility] Is Patient Psychosocially Complex?: No ASSESSMENT AND PLAN: Medical Needs: Medical Needs: Two or more chronic diseases Psychosocial Needs: Psychosocial Needs: None FREEDOM OF CHOICE EXPLAINED: [place] of Choice Given: No Reason Not Given: No placements necessary POTENTIAL TRANSITION PLANS To Be Determined Met with patient, and friend at bedside. Permission granted to discuss PHI. Hx Gabi PE 05/2020, CVA, hypothyoid, HLD, BPH IPTA, w/ADL + iADLs, works FT, drives. Lives with spouse in own home. Three stairs to enter, bed/bath up 14 step on second floor Three adult children, two live locally. Discussed AD, has LW, explained how to have scanned to EMR. Anticipate home no skilled needs. will transport home. CM available. SIGNATURE: Rosalinda De Santiago RN PATIENT NAME: Lorenzo Reis DATE: September 23, 2021 TIME: 2:47 PM PAGER/CONTACT #: [phone] Normal [facility] CBC panel Auto (Bld)on 09-23 Erythrocyte distribution width (RBC) [Ratio] 12.2 % Normal 11.5-15.0 [facility] Comment on above: Order Comment: Magdalena berg Type: BLOOD SPECIMEN [facility] Address: [address] [place] [address] Performed By: #### 5 8410-2 #### [facility] CLIA [id number] [address] [place] [address] [place] Hematocrit (Bld) [Volume fraction] 47.3 % Normal 39.0-51.0 [facility] Comment on above: Order Comment: Speci morena Type: BLOOD SPECIMEN Ordering Facility: [facility] Address: [address] [place] [address] Performed By: #### 5 8410-2 #### [facility] CLIA [id number] [address] [place] [address] [place] Hemoglobin (Bld) [Mass/Vol] 15.3 g/dL Normal 13.0-17.0 [facility] Comment on above: Order Comment: Speci men Type: BLOOD SPECIMEN [facility]ing [facility]: [facility] Address: [address] [place] [address] Performed By: #### 5 8410-2 #### [facility] CLIA [id number] [address] [place] [address] MCH (RBC) [Entitic mass] 29.7 pg Normal 26.0-34.0 [facility] Comment on above: Order Comment: Speci men Type: BLOOD SPECIMEN [facility]ing [facility]: [facility] Address: [address] [place] [address] Performed By: #### 5 8410-2 #### [facility] CLIA [id number] [address] [place] [address] [place] MCHC (RBC) [Mass/Vol] 32.3 g/dL Normal 30.5-36.0 [facility] Comment on above: Order Comment: Speci men Type: BLOOD SPECIMEN [facility]ing [facility]: [facility] Address: [address] [place] [address] Performed By: #### 5 8410-2 #### [facility] CLIA [id number] [address] [place] [address] MCV (RBC) [Entitic vol] 91.7 fL Normal 80.0-100.0 [facility] Comment on above: Order Comment: Speci men Type: BLOOD SPECIMEN [facility]ing [facility]: [facility] Address: [address] [place] [address] Performed By: #### 5 8410-2 #### [facility] CLIA [id number] [address] [place] [address] [place] Nucleated RBC (Bld) [#/Vol] 10*3/uL Normal <0.01 [facility] Comment on above: Order Comment: Speci men Type: BLOOD SPECIMEN [facility]ing [facility]: [facility] Address: [address] [place] [address] Performed By: #### 5 8410-2 #### [facility] CLIA [id number] [address] [place] [address] [place] Platelet mean volume (Bld) [Entitic vol] 10.5 fL Normal 9.0-12.7 [facility] Comment on above: Order Comment: Speci men Type: BLOOD SPECIMEN Ordering Facility: [facility] Address: [address] [place] [address] Performed By: #### 5 8410-2 #### [facility] CLIA [id number] [place] [address] [place] Platelets (Bld) [#/Vol] 213 10*3/uL Normal 150-400 [facility] Comment on above: Order Comment: Speci men Type: BLOOD SPECIMEN Ordering Facility: [facility] Address: [address] [place] [address] Performed By: #### 5 8410-2 #### [facility] CLIA [id number] [address] [place] [address] [place] RBC (Bld) [#/Vol] 5.16 10*6/uL Normal 4.20-6.00 [facility] Comment on above: Order Comment: Speci men Type: BLOOD SPECIMEN Ordering Facility: [facility] Address: [address] [place] [address] Performed By: #### 5 8410-2 #### [facility] CLIA [id number] [address] [place] [address] [place] WBC (Bld) [#/Vol] 7.21 10*3/uL Normal 3.70-11.00 [facility] Comment on above: Order Comment: Speci men Type: BLOOD SPECIMEN Ordering Facility: [facility] Address: [address] [place] [address] Performed By: #### 5 8410-2 #### [facility] CLIA [id number] [place] CKMB ONLYon 09-23-2021 CK.MB [Mass/Vol] 2.5 ng/mL Normal <7.8 [facility] Comment on above: Order Comment: Speci men Type: BLOOD SPECIMENOrdering Facility: [facility] Address: [address] [place] [address] Performed By: #### T NT, MBE, 54033-1, 80[address]-5, [facility] ####[facility] [id number] [address] [facility] [facility]21 CONSULT HNO ID: [id number] Author: Danna Gomez MD Service: Cardiovascular Medicine Author Type: Physician Type: Consults Filed: 09/23/2021 12:59 PM Note Text: CONSULT: CARDIOLOGY SERVICE SERVICE DATE: 09/23/2021 SERVICE TIME: 8:51 AM CONSULTING PHYSICIAN: Katie Ritchie PCP: Mark Ramirez MD ATTENDING: Javi Gramajo MD REASON FOR CONSULT: Chest Pain and unstable angina Subjective CHIEF COMPLAINT: Unstable angina [I20.0] CAD (coronary artery disease) [I25.10] HISTORY OF PRESENT ILLNESS: Mr. Reis is a 66 year old male who presents for past medical history of PE (05/2020), CVA, hypothyroid, HLD, BPH,smoker, presented to [facility] with c/o URI, and c/o chest pain. Had cardiac cath which showed RCA mid 85% stenosis, OM#1 90%, LAD/Diag 40% stenosis and was transferred to for PCI. On ntg AND heparin drips. Had episode of chest pain last night, ekg showed NSR with no acute ST changes. Denies chest pain this morning. PAST MEDICAL HISTORY Diagnosis Date - Acute pulmonary embolism (HCC) 06/2020 unknown cause; pt on Eliquis - Benign neoplasm of rectum and anal canal - History of peptic ulcer disease - Pure hypercholesterolemia - Snoring - Tobacco use - Unspecified hypothyroidism PAST SURGICAL HISTORY Procedure Laterality Date - COLONOSCOPY FLX DX W/COLLJ SPEC WHEN PFRMD 06/16/2009 Colonoscopy - COLONOSCOPY FLX DX W/COLLJ SPEC WHEN PFRMD 08/05/2016 Colonoscopy - COLONOSCOPY FLX DX W/COLLJ SPEC WHEN PFRMD 02/15/2018 multiple adenomatous polyps, repeat in 3 years - COLONOSCOPY FLX DX W/COLLJ SPEC WHEN PFRMD 12/23/2020 - COLSC FLX W/RMVL OF TUMOR POLYP LESION SNARE TQ 10/21/2006 Large polyp at 50cm, 3 small sessile polyps in low rectosigmoid - COLSC FLX W/RMVL OF TUMOR POLYP LESION SNARE TQ 06/25/2011 polyp in rectum - DIAGNOSIS/HISTORY left 5th finger, laceration repair - HERNIA REPAIR HX - PAST SURGICAL HISTORY OF Right 1979 right shoulder Dislocated collar bone, ORIF Dr. Kilgore - PAST SURGICAL HISTORY OF N/A 08/20/2020 Prostate biopsy - RPR PRIMARY OPEN/PRQ RUPTURED ACHILLES W/GRAFT Right 2018 - RPR UMBILICAL HRNA 5 YRS/> REDUCIBLE 07/15/2009 with mesh FAMILY HISTORY Problem Relation Age of Onset - Alzheimer's Disease Mother - Coronary Artery Disease Father [place] - Prostate Cancer Father Social History Tobacco Use - Smoking status: Current Every Day Smoker Packs/day: 1.00 Years: 40.00 Pack years: 40.00 Types: Cigarettes Start date: 09/15/2018 - Smokeless tobacco: Never Used Vaping Use - Vaping Use: Never used Substance Use Topics - Alcohol use: Yes Alcohol/week: 14.0 standard drinks Types: 6 Cans of Beer (12oz), 8 Cans of beer per week Comment: 8 beers per week - Drug use: No Prior to Admission Medications Prescriptions Last Dose Informant Patient Reported? Taking? acetaminophen (TYLENOL) 325 mg tablet No No Sig: Take 2 tablets by mouth every 4 hours as needed for pain or fever (specify). albuterol HFA (PROVENTIL HFA, VENTOLIN HFA) 90 mcg/actuation inhaler No No Sig: INHALE 2-4 PUFFS INSTRUCTED EVERY 6 HOURS NEEDED FOR WHEEZING/SHORTNESS OF BREATH. aspirin 81 mg chewable tablet No No Sig: Take 1 tablet by mouth once daily. atorvastatin (LIPITOR) 20 mg tablet No No Sig: Take 1 tablet by mouth once daily. cefdinir (OMNICEF) 300 mg capsule No No Sig: Take 1 capsule by mouth twice daily for 7 days. finasteride (PROSCAR) 5 mg tablet No No Sig: Take 1 tablet by mouth once daily. guaiFENesin-dextromethorpha n (ROBITUSSIN DM) 100-10 mg/5 mL syrup No No Sig: Take 10 mL by mouth every 4 hours as needed for cough. levothyroxine (SYNTHROID) 175 mcg tablet No No Sig: Take 1 tablet by mouth once daily. ticagrelor (BRILINTA) 90 mg tablet No No Sig: Take 1 tablet by mouth twice daily. Facility-Administered Medications: None Current Facility-Administered Medications Medication Dose Route Frequency - acetaminophen 650 mg tab(s) (TYLENOL) 650 mg ORAL q 4 H PRN - finasteride 5 mg tab(s) (PROSCAR) 5 mg ORAL DAILY - albuterol HFA 90 mcg/actuation 2-4 Puff (PROVENTIL HFA, VENTOLIN HFA) 2-4 Puff INHALATION q 6 H PRN - cefdinir 300 mg (OMNICEF) 300 mg ORAL BID - guaiFENesin-dextromethorpha n 100-10 mg/5 mL 10 mL oral liquid (ROBITUSSIN DM) 10 mL ORAL q 4 H PRN - aspirin 81 mg chewable tab(s) 81 mg ORAL DAILY - ticagrelor 90 mg tab(s) (BRILINTA) 90 mg ORAL BID - levothyroxine (SYNTHROID) tab(s) 175 mcg 175 mcg ORAL DAILY (6 AM) - NaCl 0.9% iv flush bag 20 mL INTRAVENOUS PRN - sodium chloride 0.9 % (flush) 3-5 mL (BD POSIFLUSH) 3-5 mL INTRAVENOUS q 12 H - aluminum-magnesium hydroxide-simethicone 200-200-20 mg/5 mL 30 mL (MAALOX,MYLANTA,MAG-AL PLUS) 30 mL ORAL DAILY PRN - ondansetron 4 mg tab(s) (ZOFRAN) 4 mg ORAL q 6 H PRN Or - ondansetron (PF) 4 mg injection (ZOFRAN) 4 mg INTRAVENOUS q 6 H PRN - morphine 2 mg injection 2 mg INTRAVENOUS q 4 H PRN - heparin iv infusion 25,000 units in NaCl 0.45% 250 mL LOW DO (more content not included)... Normal [facility] Magnesium SerPl-mCncon 09-23 Magnesium [Mass/Vol] 1.9 mg/dL Normal 1.7-2.3 [facility] Comment on above: Order Comment: Speci men Type: BLOOD SPECIMENOrdering Facility: [facility] Address: [address] [place] [id number] Performed By: #### Kenn BROWN MBE, 98943-3, 57760-7, PROCAL ####[facility] [id number] [address] NURSING PROGon 09-23-2021 NURSING PROG HNO ID: [id number] Author: Misa Adam RN Service: Nursing Author Type: Registered Nurse Type: Nursing Progress Note Filed: 09/24/2021 6:32 AM Note Text: Nursing Progress Note Patient Name: Lorenzo Reis Patient Location: [id number] 0-0 Daily Note: Assumed care of pt at 1930: pt alert and resting in bed, pt denies cp or pressure. Right groin dressing dry and intact, no bleeding or hematoma noted. Pt pedal pulses present. Up independent in the room with a steady gait, ivf infusing as ordered. SB on telemetry. Pt aware of npo after breakfast tomorrow for another ptca. Pt call light in reach, safety maintained, wctm. 0630: pt awake given synthroid as ordered. Pt aware of npo after breakfast. Safety maintained. This note was completed by: Misa Adam [facility] NURSING PROG HNO ID: [id number] Author: Jaiden Alex RN Service: Nursing Author Type: Registered Nurse Type: Nursing Progress Note Filed: 09/23/2021 1:57 PM Note Text: 1350 This RN providing lunch coverage. Dr. Gomez's WATER PUMP INSTALLER Jyoti Ritchie paged regarding pt's EKG. Pt denies any CP/pressure and SOB. C/o back pain, which he states from lying flat and still for so long and 5/10 CASTILLO. Neuro assessment WNL, see flowsheets. 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 Family at bedside. This note was completed by: Jaiden Alex [facility] NURSING PROG HNO ID: [id number] Author: Ester Hoffman RN Service: Nursing Author Type: Registered Nurse Type: Nursing Progress Note Filed: 09/24/2021 7:44 AM Note Text: Patient is alert, oriented, and calm. He is resting in bed and will call when he has to ambulate to the BR. He continues on 2L/NC oxygen since C/O CP last evening. Lungs are diminished and clear. Heparin gtt infusing at 1200 units/hr and Nitro gtt infusing at 5 mcg/kg/min. He rates his chest pressure at 2/10 and states that the pressure has remained the same during the night. VSS and monitor SR. Call galvin within reach. Patient remains NPO for a cardiac cath today at [address] Gomez. 09 Jyoti Ritchie CNP in to see patient. Heparin gtt stopped. 932 Report given to Emy SUTTON in [employer] [facility]. 1000 Patient alert and calm at time of transport to [facility]. Family visiting. 1256 Report from Emy in [facility]. 1301 Patient alert, oriented, and drowsy upon return to [facility] from [facility] [employer] [facility]. Right groin incision site is soft and stable with no SS hematoma, bleeding, or ecchymosis. Dressing to site is D AND I. Pulses are palp throughout. VSS and monitor SB. Call galvin within reach. Family visiting at bedside. Paient taking sips of water.Magnesium Sulfate 2GM IVPB started.NSS To infuse at 100 ml/hr. 1325 Lunch report given to Royal SUTTON. Patient sleeping. 1408 Patient given Tylenol for C/O low back pain, and repositioned for comfort. Waiting for Dr. Gomez. 1430 Patient given lunch and snack. Jyoti Ritchie CNP in to speak with the patient and his family about his plan of care. Patient will return to the [facility] tomorrow around 1500 for intervention to the RCA with Dr. Gomez. 1530 Echo completed at bedside. Patient is off bedrest and ambulated to the BR with stand by assist. 1830 Patient sitting up at bedside eating his dinner tray. He denies pain or needs. Right groin stable and unchanged. 1909 Report given to Misa SUTTON. [facility] NURSING PROG HNO ID: [id number] Author: Misa Adam RN Service: Nursing Author Type: Registered Nurse Type: Nursing Progress Note Filed: 09/23/2021 5:04 AM Note Text: Nursing Progress Note Patient Name: Lorenzo Reis Patient Location: [place] [id number] 0-0 Daily Note: Assumed care of pt at 2315: pt alert and resting flat on back in bed. Pt reports pain 8/10 rating it as pressure that he didn't report previously but has been going on for a while O2 placed on pt at 2L NC, EKG completed, pt given 2mg IV morphine. Heparin infusing at 1000 units/hr w/out any issue. vitals obtained, hospitalist service notified of pt's condition, call light in reach, wctm. 2342: Back in room to check on pt, currently resting with his eyes closed. Rating his cp 2/10 at this time. Pt instructed not to get oob at this time. Physician on unit reviewing ekg and chart, monitoring continued. 0015: pt reports cp remains at a 2/10 at this time. Pt using urinal to void. Order received for metoprolol and nitro infusion to start.. Pt call light in reach, monitoring continued. 0045: pt voided 100 cc yellow urine w/out difficulty. Nitro infusion started at 5mcg/min, metoprolol held d/t HR under the established parameters. Pt resting in bed, rating chest discomfort at a 1-2/10. Pt SB in the 40's on telemetry, safety maintained, wctm. 0245: pt Heparin infusion increased to 1200 units/hr, bolus of 2800 units given. Next aptt is at 0830. Pt sleeping, no complaints at this time. Call light in reach, wctm. 0500: pt awake, resting in bed. Pt still rating cp at a 2/10, no changes since earlier. Heparin and Nitro infusing per orders. Safety maintained, wctm. This note was completed by: Misa Adam [facility] OPERATIVE NOon 09-23-2021 OPERATIVE NO HNO ID: [id number] Author: Danna Gomez MD Service: Cardiovascular Disease Author Type: Physician Type: Operative Report Filed: 09/23/2021 1:16 PM Note Text: RETAIL ASSOCIATE MANAGER BILINGUAL PROCEDURE REPORT SERVICE DATE: 09/23/2021 SERVICE TIME: LENS POLISHER: Danna Gomez MD ATTENDING: Javi Gramajo MD PRIMARY CARE PHYSICIAN: Mark Ramirez MD REFERRING PROVIDER: Pankaj MONGOLIAN STUDY OF HEALTH and AGING SCALE:2=Well CARDIOVASCULAR INSTABILITY:No PRE-PROCEDURE DIAGNOSIS: 1. Angina, Unstable POST PROCEDURE DIAGNOSIS: 1. Successful PCI of LCX PROCEDURE: 1. Angioplasty and Synergy (Drug Eluting Stent) Placement in Proximal OM #1 And proximal lcx, over lapping stent Complex percutaneous coronary intervention, involving boifurcation MODERATE SEDATION: Moderate Sedation provided by Cardiology Nursing Staff. Moderate sedation consisting of continuous ECG, pulse oximetry and cardiopulmonary monitoring was performed by the Cardiology Nurse, overseen by supervising physician, for an intra-service time of 2 hr. 30 min. Sedative Medications: Drug: Versed Dose: 3 mg Route: IV Drug: Fentanyl Dose: 100 mcg Route: IV PRIORITY AT TIME OF PROCEDURE: Elective SITE OF ENTRY: Groin:Right CONTRAST: Omnipaque 350 mg Iodine/mL (iohexol injection, solution): 260 mL PERCUTANEOUS CORONARY INTERVENTION: The catheterization angiogram was reviewed affirming the patient was indicated for PCI. The patient was taken to the cardiac [facility] where the entry site was prepped and draped in a sterile manner. Heparin and Aggrastat was given for anticoagulation. Under local anesthesic with 2% Lidocaine, the vessel was cannulated with micropuncture technique using an arterial needle and Ultrasound was used to visualize and guide the entry into the vessal and a 5F and 6F sheath was introduced. A guiding catheter was advanced under fluoroscopy and the vessel was engaged. Using standard protocol, angioplasty was performed and cardiac stent(s) were placed in the following vessel(s). ADDITIONAL PROCEDURES LCX Lesion Type: Class C Guiding Catheter(s): XB3.5 Pre Dilatation Balloon Size: 3.0 mm X 20 mm 70% Stenosis Location: Proximal Pre KAMERON Blood Flow: 3 Proximal Stent Placed: Type: Synergy (Drug Eluting Stent) Size: 3.5 mm Length: 24 mm Post Dilatation Balloon Size: 4.0 mm X 12 mm Post KAMERON Blood Flow: 3 Result: Successful., I went throught the stent to open the branch with 3.5 ballonn OM #1 Lesion Type: Class C Guiding Catheter(s): XB3.5 Pre Dilatation Balloon Size: 3.0 mm X 20 mm 99% Stenosis Location: Proximal, Calcified, Ectatic, Tortuous, very complex lesion, used supercross 45 and 90 degree. complex three turns Pre KAMERON Blood Flow: 3 Proximal Stent Placed: Type: Synergy (Drug Eluting Stent) Size: 2.5 mm Length: 24 mm Post Dilatation Balloon Size: 3.5 mm X 20 mm Post KAMERON Blood Flow: 3 Result: Successful. The sheath was removed and hemostatsis was established using Perclose closure device. There was no bleeding at the end of the procedure. The pt was returned to the recovery room in a stable condition. ESTIMATED BLOOD LOSS: Less Than Minimal Unless Noted Here. COMPLICATIONS: None SPECIMENS: No specimens obtained unless noted here. CONDITION: Stable RECOMMENDATIONS: Follow protocol of post-op orders. before starting I reassess the lad was mild lesion. Lesion in rca is severe will be addressed tomorrow, due to load of dye. Before After SIGNATURE: Danna Gomez MD PATIENT NAME: Lorenzo Reis DATE: September 23, 2021 TIME: 1:07 PM Normal [facility] PROCALCITONIN (LAB)on 2021 Procalcitonin [Mass/Vol] ng/mL Normal <0.09 [facility] Comment on above: Order Comment: Magdalena berg Type: BLOOD SPECIMENOrdering Facility: [facility] Address: [address] [place] [address] Result Comment: For a guided interpretation of test results, please visit the Change in Procalcitonin Calculator, [email or web address]. Performed By: #### T NT, BENJY, 27385-9, 14753-5, PROCAL ####[facility]ORATORYCLIA [id number] [place] [address] [place] PTT, ANTICOAGULANT THERAPYon 09-23-2021 aPTT Coag (PPP) [Time] 34.2 s High 23.0-32.4 [facility] Comment on above: Order Comment: Magdalena berg Type: BLOOD SPECIMEN Ordering Facility: [facility] Address: [address] [place] [address] Performed By: #### P TTAC #### [facility] CLIA [id number] [place] [id number] [place] TROPONIN Ton 09-23-2021 Troponin T.cardiac [Mass/Vol] ug/L Normal 0.000-0.029 [facility] Comment on above: Order Comment: Speci men Type: BLOOD SPECIMENOrdering Facility: [facility] Address: [address] [place] [address] Performed By: #### T NT, MBE, 74357-9, 04582-7, PROCAL ####[facility]ORATORYCLIA [id number] [place] [address] [place] aPTT PPPon 09-23-2021 aPTT Coag (PPP) [Time] 52.0 s High 23.0-32.4 [facility] Comment on above: Order Comment: Speci men Type: BLOOD SPECIMEN Ordering Facility: [facility] Address: [address] [place] [address] Performed By: #### 1 4979-9 #### [facility] CLIA [id number] [place] HISTORY PHYSICALon HISTORY PHYSICAL HNO ID: [id number] Author: Miya Sharp MD Service: Hospital Medicine Author Type: Physician Type: HANDP Filed: 09/23/2021 4:37 AM Note Text: DEPARTMENT OF HOSPITAL MEDICINE HISTORY AND PHYSICAL EXAM SERVICE DATE: 09/22/2021 Code Status: Not on file SERVICE TIME: 7:43 PM Primary Care Physician: Mark Ramirez MD NIGHT AND WEEKEND COVERAGE: [facility] COVERAGE:TEAM 2: [phone], please call Team 2 pager [phone]. [phone], please call [facility] Night Coverage pager [phone]) for Teams 1, 2, AND 3 Subjective CHIEF COMPLAINT: Transferred from [facility] for stent placement HPI: This is a 66 year old male with PMH of bilateral PEs 05/2020 on Eliquis, history of's stroke, hypothyroidism, hyperlipidemia, BPH, obesityand current smoker who was admitted to [facility] on 09/20/2021 with URI symptoms and exertional chest pain. EKG without any acute ischemic changes, Troponin T < 0.010 x3 Patient underwent left heart cath today, which showed an 85% mid RCA stenosis and a 90% Cx OM 1. He was given Brilinta, and started on cefdinir 300 mg twice daily for bronchitis and transferred to [facility] for stent placement. Patient denies chest pain, shortness of breath, nausea vomiting, diaphoresis at this time. PAST MEDICAL HISTORY Diagnosis Date - Acute pulmonary embolism (HCC) 06/2020 unknown cause; pt on Eliquis - Benign neoplasm of rectum and anal canal - History of peptic ulcer disease - Pure hypercholesterolemia - Snoring - Tobacco use - Unspecified hypothyroidism PAST SURGICAL HISTORY Procedure Laterality Date - COLONOSCOPY FLX DX W/COLLJ SPEC WHEN PFRMD 06/16/2009 Colonoscopy - COLONOSCOPY FLX DX W/COLLJ SPEC WHEN PFRMD 08/05/2016 Colonoscopy - COLONOSCOPY FLX DX W/COLLJ SPEC WHEN PFRMD 02/15/2018 multiple adenomatous polyps, repeat in 3 years - COLONOSCOPY FLX DX W/COLLJ SPEC WHEN PFRMD 12/23/2020 - COLSC FLX W/RMVL OF TUMOR POLYP LESION SNARE TQ 10/21/2006 Large polyp at 50cm, 3 small sessile polyps in low rectosigmoid - COLSC FLX W/RMVL OF TUMOR POLYP LESION SNARE TQ 06/25/2011 polyp in rectum - DIAGNOSIS/HISTORY left 5th finger, laceration repair - HERNIA REPAIR HX - PAST SURGICAL HISTORY OF Right 1979 right shoulder Dislocated collar bone, ORIF Dr. Kilgore - PAST SURGICAL HISTORY OF N/A 08/20/2020 Prostate biopsy - RPR PRIMARY OPEN/PRQ RUPTURED ACHILLES W/GRAFT Right 2018 - RPR UMBILICAL HRNA 5 YRS/> REDUCIBLE 07/15/2009 with mesh FAMILY HISTORY Problem Relation Age of Onset - Alzheimer's Disease Mother - Coronary Artery Disease Father [place] - Prostate Cancer Father Social History Tobacco Use - Smoking status: Current Every Day Smoker Packs/day: 1.00 Years: 40.00 Pack years: 40.00 Types: Cigarettes Start date: 09/15/2018 - Smokeless tobacco: Never Used Vaping Use - Vaping Use: Never used Substance Use Topics - Alcohol use: Yes Alcohol/week: 14.0 standard drinks Types: 6 Cans of Beer (12oz), 8 Cans of beer per week Comment: 8 beers per week - Drug use: No PRIOR TO ADMISSION MEDICATIONS: acetaminophen (TYLENOL) 325 mg tablet, Take 2 tablets by mouth every 4 hours as needed for pain or fever (specify)., Disp: , Rfl: [START ON 09/23/2021] aspirin 81 mg chewable tablet, Take 1 tablet by mouth once daily., Disp: , Rfl: cefdinir (OMNICEF) 300 mg capsule, Take 1 capsule by mouth twice daily for 7 days., Disp: 14 capsule, Rfl: 0 guaiFENesin-dextromethorpha n (ROBITUSSIN DM) 100-10 mg/5 mL syrup, Take 10 mL by mouth every 4 hours as needed for cough., Disp: , Rfl: [START ON 09/23/2021] ticagrelor (BRILINTA) 90 mg tablet, Take 1 tablet by mouth twice daily., Disp: , Rfl: albuterol HFA (PROVENTIL HFA, VENTOLIN HFA) 90 mcg/actuation inhaler, INHALE 2-4 PUFFS INSTRUCTED EVERY 6 HOURS NEEDED FOR WHEEZING/SHORTNESS OF BREATH., Disp: 8.5 Each, Rfl: 5 atorvastatin (LIPITOR) 20 mg tablet, Take 1 tablet by mouth once daily., Disp: 90 tablet, Rfl: 3 levothyroxine (SYNTHROID) 175 mcg tablet, Take 1 tablet by mouth once daily., Disp: 90 tablet, Rfl: 3 finasteride (PROSCAR) 5 mg tablet, Take 1 tablet by mouth once daily., Disp: 90 tablet, Rfl: 3 ALLERGIES Allergen Reactions - Bees Swelling Swelling of throat; pt has been through desensition REVIEW OF SYSTEM: GENERAL: No weight loss, malaise or fevers HEENT: Negative for frequent or significant headaches, No changes in hearing or vision, no nose bleeds or other nasal problems NECK: Negative for lumps, goiter, pain and significant neck swelling RESPIRATORY: +for productive cough, hemoptysis, wheezing, COPD, dyspnea or shortness of breath CARDIOVASCULAR:+for intermittent chest pain, leg swelling, hypertension, CHF or palpitations GI: No nausea, vomiting, or diarrhea : No history of dysuria, frequency or incontinence MUSCULOSKELETAL: Negative for joint pain or swelling, back pain or muscle pain SKIN: Negative for lesions, rash, a (more content not included)... Normal [facility] NURSING PROGon 09-22-2021 NURSING PROG HNO ID: [id number] Author: Merly Teresa RN Service: ? Author Type: Registered Nurse Type: Nursing Progress Note Filed: 09/22/2021 10:33 PM Note Text: Nursing Progress Note Patient Name: Lorenzo Reis Patient Location: [id number] 0-0 1850 Patient arrived from [facility] via transport company in stable condition. Transport team states the patient's O2 level dropped to 89% on room air. Was put on 4L NC for ride to [place]. Currently patient is 96% on room air. Diminished lung sounds with LL wheezing noted. Patient states he does not use home O2. Family at bedside. Patient oriented to unit. Night team paged and made aware of patient's arrival. Awaiting orders. VSS at this time. Denies any pain or discomfort. Steady gait. Patient reminded and encouraged to call for assistance with ambulation and as needed. Patient states understanding. Call light within reach. 1930 Heparin gtt initiated at 10ml/hr per SEP. Pttac due at 0130. Patient to be NPO at midnight for cardiac cath tomorrow. Patient states understanding. 2229 Patient observed asleep. This note was completed by: Merly Teresa [facility] PT panel Coag (PPP)on 2021 INR Coag (PPP) [Relative time] 1.1 {INR} Normal 0.9-1.3 [facility] Comment on above: Order Comment: Speci men Type: BLOOD SPECIMEN Ordering Facility: [facility] Address: [address] [place] [address] Result Comment: Kim min K Antagonist (VKA) Therapeutic Range: INR 2 to 3 (Target INR of 2.5) Note: For patients treated with VKA drugs, such as warfarin, the [employer] 2012 Guideline recommends a therapeutic INR range of 2 to 3 (target INR of 2.5). This recommendation includes high-risk patients with antiphospholipid syndrome with previous arterial or venous thromboembolism, current-generation mechanical or bioprosthetic aortic heart valve replacement. Note: Patients with mechanical aortic valve replacement and additional risk factors for thromboembolic events (atrial fibrillation, previous thromboembolism, LV dysfunction, hypercoagulable conditions) or an older generation mechanical AVR (i.e., ball in-Cage) or any mechanical MVR should have a INR therapeutic range of 2.5 to 3.5 (target INR of 3). Ale ERVIN, et al. Chest 2012, 141:7S-47S Marysol RA, et al. [facility] 2017, 70: 252-289 Performed By: #### 3 4528-0, PTTAC #### [facility] CLIA [id number] [place] [facility] PT Coag (PPP) [Time] 11.8 s Normal 9.7-13.0 [facility] Comment on above: Order Comment: Speci men Type: BLOOD SPECIMEN Ordering Facility: [facility] Address: [address] [place] [address] Performed By: #### 3 4528-0, PTTAC #### [facility] CLIA [id number] PTT, ANTICOAGULANT THERAPYon 09-22-2021 aPTT Coag (PPP) [Time] 27.2 s Normal 23.0-32.4 [facility] Comment on above: Order Comment: Speci men Type: BLOOD SPECIMEN Ordering Facility: [facility] Address: [address] [place] [address] Performed By: #### 3 4528-0, PTTAC #### [facility] LABORATORY CLIA [id number] [address] [place] [address] [place] XR Chest PA and Lateralon IMPRESSION: No acute radiographic abnormality. Ticketing Clerk: MAT Transcribe Date/Time: May 05 2021 6:50P Dictated by : SANYA GARCES MD This examination was interpreted and the report reviewed and electronically signed by: SANYA GARCES MD on May 05 2021 6:52PM [facility] DIVISION OF RADIOLOGY * * *Final Report* * * DATE OF EXAM: May 05 2021 6:47PM WOX [id number] - XR CHEST 2V FRONTAL/LAT / PROCEDURE REASON: Cough * * * * Physician Interpretation * * * * EXAMINATION: CHEST RADIOGRAPH (2 VIEW FRONTAL & LATERAL) CLINICAL HISTORY: Cough MQ: XC2_6 EXAM DATE/TIME: 05/05/2021 6:47 PM COMPARISON: 08/18/2020 RESULT: Lines, tubes, and devices: None. Lungs and pleura: No consolidation. No lung mass. No pleural effusion. No pneumothorax. Cardiomediastinal silhouette: Stable cardiomediastinal silhouette. Bones and soft tissues: Degenerative changes/DISH is noted in the thoracic spine. Convex rightward thoracic scoliosis is noted. [facility] * * *Final Report* * * DATE OF EXAM: May 05 2021 6:47PM WOX [id number] - XR CHEST 2V FRONTAL/LAT / PROCEDURE REASON: Cough * * * * Physician Interpretation * * * * EXAMINATION: CHEST RADIOGRAPH (2 VIEW FRONTAL & LATERAL) CLINICAL HISTORY: Cough MQ: XC2_6 EXAM DATE/TIME: 05/05/2021 6:47 PM COMPARISON: 08/18/2020 RESULT: Lines, tubes, and devices: None. Lungs and pleura: No consolidation. No lung mass. No pleural effusion. No pneumothorax. Cardiomediastinal silhouette: Stable cardiomediastinal silhouette. Bones and soft tissues: Degenerative changes/DISH is noted in the thoracic spine. Convex rightward thoracic scoliosis is noted. IMPRESSION IMPRESSION: No acute radiographic abnormality. Ticketing Clerk: PSCB Transcribe Date/Time: May 05 2021 6:50P Dictated by : SANYA GARCES MD This examination was interpreted and the report reviewed and electronically signed by: SANYA GARCES MD on May 05 2021 6:52PM EST [facility] Radiology Study observation (narrative) [facility] XR Chest PA and LateralOrder ed By: [facility] Provider on 05-05-2021 [facility] CNOVon 09-29-2020 CNOV Office Visit (AKURFL ) LORENZO REIS ([id number]) 1955 M Date Time Provider Department 09/29/20 3:30 PM LEEROY MARTÍNEZ During your visit today, we recorded the following information about you: Blood pressure Weight Height 124/80 90.7 kg 1.753 m Leeroy Martínez MD 10/01/2020 11:01 AM Signed ESTABLISHED PATIENT OFFICE VISIT PATIENT INFO: Lorenzo Reis 65 year old HPI 09/29/2020 CC: bph He has a [place] hat on Presents for cystoscopy today because of BPH and prostatism symptoms as noted below Stop the Flomax is did not think was helpful Nocturia 2?3 and daytime voiding every 2 hours about Cystoscopy today shows severe trilobar BPH I do not feel candidate for UroLift especially given prostate volume also He remains on his Eliquis with his history of DVT and discussed for TURP he would have to be off the Eliquis postop 1-2 weeks He just wants to try Proscar for now and see me back in 6 mo for transrectal ultrasound to evaluate prostate volume changes He will follow with primary physician about his anticoagulation and options in the future for that Past Urology Hx: September 02, 2020?seen by Dr. Mcgovern? Elevated PSA Negative MRI fusion biopsy. PSA in 6 months. Significant LUTS, Flomax not working well. Interested in Urolift. Cystoscopy with Dr. Martínez ?Christian Mcgovern DO QUINTEN 08/04/2020 CC: psa Patient saw Dr. Mcgovern as below and had MRI showing PI-RADS 3 lesion Did okay under local anesthetic with his initial prostate biopsy in 2016 2 months ago had blood clot to the lung and placed on Eliquis in the hospital and has been doing well but has not followed up with any specific physician who put him on Eliquis but he does have a primary physician Denies chest pain or shortness of breath We will place him on MRI fusion biopsy schedule in August but will need clearance from medical that he can stop Eliquis 2 days prior and resume 24 hours after the biopsy otherwise we will have to delay ? June 17, 2020?saw Dr. Mcgovern? Here for evaluation of rising PSA Negative prostate biopsy by Dr. Nolan in 2016. Incomplete bladder emptying - recently started on Flomax. Not helping flow much. Still having nocturia. Prostate Biopsy 09/2016 FINAL DIAGNOSIS 1. Prostate, right base lateral, needle biopsy (A) - Benign prostatic tissue with focal acute and chronic inflammation. 2. Prostate, right mid lateral, needle biopsy (B) - Benign prostatic tissue. 3. Prostate, right apex lateral, needle biopsy (C) - Benign prostatic tissue. 4. Prostate, right base medial, needle biopsy (D) - Benign prostatic tissue. 5. Prostate, right mid medial, needle biopsy (E) - Benign prostatic tissue. 6. Prostate, right apex medial, needle biopsy (F) - Benign prostatic tissue with focal chronic inflammation. 7. Prostate, left base lateral, needle biopsy (G) - Benign prostatic tissue with focal chronic inflammation. 8. Prostate, left mid lateral, needle biopsy (H) - Benign prostatic tissue. 9. Prostate, left apex lateral, needle biopsy (I) - Benign prostatic tissue. 10. Prostate, left base medial, needle biopsy (J) - Benign prostatic tissue. 11. Prostate, left mid medial, needle biopsy (K) - Benign prostatic tissue. 12. Prostate, left apex medial, needle biopsy (L) - Benign prostatic LAB: IMPRESSION/PLAN: Elevated PSA, 8.10 S/P negative biopsy in 2017. Needs prostate MRI. May mandi cystoscopy for worsening LUTS. Christian Mcgovern, DO QUINTEN RADS: September 29, 2020?cystoscopy?severe trilobar hypertrophy and unable to see trigone well and with retroflexed scope circumferential bulging of prostate into the bladder; 1+ trabeculation and low residual urine without bladder lesion, friable prostate Creatinine Date Value Ref Range Status 09/29/2020 0.84 0.73 - 1.22 mg/dL Final PSA (ng/mL) Date Value 05/01/2020 8.10 04/27/2019 6.57 04/27/2018 6.35 04/27/2017 6.15 08/16/2016 6.47 07/14/2015 4.39 05/24/2014 4.20 PSA Screening (ng/mL) Date Value 05/21/2020 8.79 Glucose, Urine (no units) Date Value 01/30/2007 NEG Bilirubin, Urine (no units) Date Value 01/30/2007 NEG Ketones, Urine (no units) Date Value 01/30/2007 NEG Specific [place], Ur (no units) Date Value 01/30/2007 1.030 Hemoglobin/Blood,Ur (no units) Date Value 01/30/2007 TRACE pH, Urine (no units) Date Value 01/30/2007 5.0 Protein, Urine (no units) Date Value 01/30/2007 NEG Nitrites (no units) Date Value 01/30/2007 NEG Review of Systems Constitutional: Negative. HENT: Negative. Eyes: Negative. Respiratory: Negative. Cardiovascular: Negative. Gastrointestinal: Negative. Endocrine: Negative. Genitourinary: See HPI Musculoskeletal: Negative. Skin: Negative. Allergic/Immunologic: Negative. Neurological: Negative. Hematological: Negative. Psychiatric/Behavioral: Negative. I reviewed and confirmed ROS obtained by MA HISTORIES PAST MEDICAL HISTORY Diagnosis Date - Acute pulmonary embolism (HCC) 06/2020 unknown cause; pt on Eliquis - Benign neoplasm of rectum and anal canal - History of peptic ulcer disease - Pure hypercholesterolemia - Snoring - Tobacco use - Unspecified hypothyroidism FAMILY HISTORY Problem Relation Age of Onset - Alzheimer's Disease Mother - Coronary Artery Disease Father NC - Prostate Cancer Father SOCIAL HISTORY Social History Tobacco Use - Smoking status: Current Every Day Smoker Packs/day: 1.00 Years: 40.00 Pack years: 40.00 Types: Cigarettes Start date: 09/15/2018 - Smokeless tobacco: Never Used Substance Use Topics - Alcohol use: Yes Alcohol/week: 6.0 standard drinks Types: 6 Cans of Beer (12oz) per week - Drug use: No MEDICATIONS: apixaban (ELIQUIS) 5 mg tab(s), Take 1 tablet by mouth twice daily. levothyroxine (SYNTHROID) 175 mcg tablet, Take 1 tablet by mouth once daily. atorvastatin (LIPITOR) 20 mg tablet, Take 1 tablet by mouth once daily. tamsulosin ER (FLOMAX) 0.4 mg, Take 1 capsule by mouth daily at bedtime. finasteride (PROSCAR) 5 mg tablet, Take 1 tablet by mouth once daily. Physical Exam Constitutional: He is oriented to person, place, and time and well-developed, well-nourished, and in no distress. HENT: Head: Normocephalic and atraumatic. Nose: Nose normal. Eyes: EOM are normal. Neck: No tracheal deviation present. Pulmonary/Chest: Effort normal. No respiratory distress. Musculoskeletal: General: No deformity. Normal range of motion. Cervical back: Normal range of motion. Neurological: He is alert and oriented to person, place, and time. Gait normal. Skin: Skin is warm. Psychiatric: Mood, memory and affect normal. Risk/Benefit Discussion: The patient was offered a surgery/procedure at a [facility] facility. The surgeon/proceduralist and patient have discussed in detail the risk of exposure to and/or potential harm posed by the COVID-19 virus with having a surgery/procedure at this time versus the risk of delaying the surgery/procedure. It is not possible to know either the risk of delaying the surgery or procedure or chance of getting an infection with perfect accuracy, but a joint decision was made between the patient and the surgeon/proceduralist to proceed at this time with the scheduled surgery/procedure as indicated on the consent form. Discussed options alpha verna therapy vs proscar vs surical intervention and risks of these. Alpha bolckers can cause dizzines and falls. Discussed risk bladder decompinsation snf could be an issue if no surgical intervention. Proscar Review: I have discussed in great detail with the patient the treatment of prostate enlargement(BPH) using Proscar. I have explained my rationale for using Proscar, the fact that Proscar does have a side-effect of impotency or less desire for sex. I explained that there may be changes or problems with ejaculation, such as a decreased amount of semen released during sex. I explained that, in many cases, these side effects decreased as the patient continued to take Proscar. I explained the possibility of breast enlargement and/or tenderness. I further advised him that Proscar may cause an alteration in his PSA level. I explained that this medication is for men only. I strongly advised him that women who are or may be should not even handle Proscar. The patient expressed an understanding of the treatment, possible reactions, and possible prognosis. TUR Prostate I explained the options concerning surgery versus medication.I explained the possibility of impotency, retrograde ejaculation, and incontinence ,the possibility of blood loss, and transfusion and the fact that he may be admitted post operatively. I explained the post operative urgency, frequency, and dysuria. Risk of anesthesia complications, stroke, NC, etc.The patient expressed an understanding with regard to possible complications and outcome. FOLLOW UP ([id number]; 3s): Return in about 6 months (around 04/01/2021). ASSESSMENT/PLAN: 1. Benign prostatic hyperplasia with urinary obstruction - ICD9: 600.01, 599.69, ICD10: N40.1, N13.8 (primary diagnosis) - SULFAMETHOXAZOLE 800 MG-TRIMETHOPRIM 160 MG TABLET - LIDOCAINE 2 % MUCOSAL JELLY IN APPLICATOR - CYSTO.PANENDO - TRUS ONLY - FINASTERIDE 5 MG TABLET 2. Nocturia - ICD9: 788.43, ICD10: R35.1 3. Frequency of micturition - ICD9: 788.41, ICD10: R35.0 Leeroy Martínez MD Please note: This note has been produced using speech recognition software and may contain errors related to that system including grammar, punctuation, spelling, gender and words and phrases that may be inappropriate. Leeroy Martínez MD 09/29/2020 4:27 PM Signed Start the Proscar medication PATIENT INFORMATION: Benign Enlargement of the Prostate Benign (noncancerous) enlargement of the prostate, known as benign prostatic hyperplasia, or BPH, is the most common prostate problem in men. Almost all men will develop some enlargement of the prostate as they age. Who is affected by prostate enlargement? Overall, the number of men with BPH increases progressively with age. By age 60, 50% of men will have some signs of BPH. By age 85, 90% of men will have signs of the condition. About half of these men will develop symptoms that need to be treated. Does having benign prostatic hyperplasia increase your risk of developing prostate cancer? Based on research to date, having BPH does not seem to increase the risk of developing prostate cancer. However, BPH and prostate cancer have similar symptoms, and a man who has BPH may have undetected cancer at the same time. To help detect prostate cancer in its early stages, the [place] [employer] and the [place] [employer] recommend a screening every year for men ages 50 to 70. They further recommend that men who are at high risk -- such as -Polish men and men with a family history of prostate cancer -- begin screening at about age 40. Screening tests for prostate cancer include a blood test for a substance called prostate-specific antigen (PSA) and the digital rectal exam (JOCE). What are the symptoms of benign prostatic hyperplasia? Since the prostate gland surrounds the urethra (the tube that carries urine outside the body), it is easy to understand that enlargement of the prostate can lead to blockage of the tube. Therefore, you may develop: ? Slowness or dribbling of your urinary stream ? Hesitancy or difficulty starting to urinate ? Frequent urination ? Feeling of urgency (sudden need to urinate) ? Need to get up at night to urinate As symptoms progress, you may develop: The enlargement of the prostate can lead to blockage of the urethra. ? Bladder stones ? Bladder infection ? Blood in your urine ? Damage to your kidneys from back pressure caused by retaining large amounts of extra urine in the bladder ? Sudden blockage of the urinary tube, making urination impossible How is benign prostatic hyperplasia diagnosed? Your doctor will look at your medical history and give you a complete physical. Your doctor will perform a digital rectal examination by inserting a gloved, lubricated finger into your rectum to feel the prostate. Because the prostate gland is in front of the rectum, it is relatively easy for the doctor to feel much of the gland. This enables him or her to estimate the size of the prostate and to detect any hard areas that could be cancer. Several studies may be performed to help diagnose your condition: ? A seven-question survey may be completed to evaluate your symptoms. ? A flow study may be conducted to measure how slow the urinary stream is compared with normal flow. ? A study may be conducted to detect how much urine is left in the bladder after urination is completed. ? In addition, the physician may need to look into the bladder. The procedure is called cystoscopy. ? How is benign prostatic hyperplasia treated? Patients with mild symptoms may not require treatment other than continued observation to make sure their condition doesn't get worse. This approach is sometimes called watchful waiting or surveillance. There are a number of treatment options available if your symptoms are severe: Treatments for BPH include: Medication Proscar was one of the first drugs used to treat BPH. It works by slowing the production of the hormone dihydrotestosterone (DHT), which affects the growth of the prostate gland. Proscar appears to be most beneficial for men with larger prostates. Drugs that relax the muscle in the prostate (to reduce the tension on the urine tube) are more commonly used. These include Hytrin, Cardura, and Flomax. The most common side effects are light-headedness and weakness. Surgery A number of surgical procedures have been used to remove the prostate tissue blocking the flow of urine. ? The most common procedure is called transurethral resection of the prostate (TURP). There are several different variations on this technique. It involves removing the tissue blocking the urethra (urine tube) with a special instrument. Although TURP is an effective treatment, there are potential side effects, including bleeding, infection, impotence (inability to maintain an erection suitable for sex) and incontinence (inability to control the flow of urine). ? Transurethral electrovaporization: This technique uses electrical energy applied through an electrode to rapidly heat prostate tissue, turning the tissue cells into steam. This allows the doctor to vaporize an area of the enlarged tissue and relieve urinary blockage. ? The Greenlight laser: This is commonly used to treat BPH and is associated with less bleeding after the procedure. Another, less complicated procedure is transurethral incision of the prostate (TUIP). Instead of removing tissue, as with TURP, this approach involves widening the urethra by making several small cuts in the bladder neck (area where the urethra and bladder join), as well as in the prostate gland itself. This relieves some of the pressure on the urethra and improves urine flow. Leeroy Martínez MD 10/01/2020 11:01 AM Signed CYSTOSCOPY PROCEDURE NOTE: [id number]-hzbhq/fulg 12588--ljtqs/complex 36647--cjbmd 91344--qvvuplms cath 93451-avxcw/dilate BLADDER IRRIGATION, SIMPLE, LAVAG [[id number] Lorenzo Reis is a 65 year old male who presents for cystoscopy. Pt ID verified with patient: yes Procedure verified with patient: yes Procedure confirmed with physician and family support coordinator: yes Sign In: History and Physical Exam reviewed and is unchanged. Primary Diagnosis: LUTs and BPH Informed Consent Discussed: Yes. Risks, benefits, alternatives and personnel discussed with patient who consents to proceed. Sign in Communication: Completed Time Out: Team Confirms the Correct Patient, Correct Procedure; Cystoscopy, Correct Site and Site Marking, Correct Position (if applicable). Fire Safety Check List Reviewed: Yes Affirmation of Time Out: Yes Sign Out: Sign Out Discussion: Completed Physician: Leeroy Martínez MD A urinalysis was performed---- revealing no evidence of infection. Antibiotic was-Bactrim The benefits, risks, alternatives of the cystoscopy procedure and personnel were discussed with the patient. The verbal consent was obtained and the patient agrees to proceed. Procedure: The patient was placed on the procedure table in the supine position and prepped and draped in the usual sterile fashion. 2% Lidocaine Jelly was placed per urethra as an anesthetic in the standard fashion. Once adequate local anesthesia was achieved, the tip of the flexible cystoscope was carefully placed into the urethra under direct visual guidance. ---URETHRA: The scope was negotiated through the pendulous urethra to the level of the bulbar urethra with no evidence of stricture. --severe trilobar hypertrophy and unable to see trigone well and with retroflexed scope circumferential bulging of prostate into the bladder; 1+ trabeculation and low residual urine without bladder lesion, friable prostate At the conclusion of the procedure, the flexible cystoscope was removed atraumatically. The patient tolerated the procedure without complications. Patient was given standard post-procedure instructions, and was directed to complete the course of oral antibiotics and increase oral fluid intake as directed. ASSESSMENT/PLAN: 1. Benign prostatic hyperplasia with urinary obstruction - ICD9: 600.01, 599.69, ICD10: N40.1, N13.8 - SULFAMETHOXAZOLE 800 MG-TRIMETHOPRIM 160 MG TABLET - LIDOCAINE 2 % MUCOSAL JELLY IN APPLICATOR - CYSTO.PANENDO - TRUS ONLY - FINASTERIDE 5 MG TABLET Leeroy Martínez MD See progress note for plans Leeroy Martínez MD Referring Provider: MARK RAMIREZ [[id number]] Allergies As of Date: 09/29/2020 Noted Allergy Reaction BEES 10/14/2005 7 - Swelling Comments: Swelling of throat; pt has been through desensition Date Reviewed: 09/29/2020 Reviewed by: Leeroy Martínez - Fully Assessed Reason for Visit: Cystoscopy-1 [303] Primary Visit Diagnosis:Benign prostatic hyperplasia with urinary obstruction [N40.1, N13.8] Other Visit Diagnoses:Nocturia [R35.1] Frequency of micturition [R35.0] Order(s):UA DIP, URINE (POC) [[id number]] Order #: [id number]. #:[id number] [] sulfamethoxazole-trimethopr im 800-160 mg 1 tablet (BACTRIM DS,SEPTRA DS)Disp: Rfl: [] lidocaine urojet 2 % 6 mL topical gel (XYLOCAINE, GLYDO)Disp: Rfl: CYSTO.PANENDO [19699ATT] Order #: [id number] finasteride (PROSCAR) 5 mg tabletTake 1 tablet by mouth once daily.Disp: 90 tabletRfl: 3 Prescriptions as of 09/29/2020 Sig: APIXABAN 5 MG TABLET Take 1 tablet by mouth twice * LEVOTHYROXINE 175 MCG TABLET Take 1 tablet by mouth once d* ATORVASTATIN 20 MG TABLET Take 1 tablet by mouth once d* TAMSULOSIN 0.4 MG CAPSULE Take 1 capsule by mouth daily* FINASTERIDE 5 MG TABLET Take 1 tablet by mouth once d* Problem List As Of Date 09/29/2020 Noted Resolved Pure hypercholesterolemia [E78.00] 04/26/2011 Hypothyroidism [E03.9] 10/14/2005 Mixed hyperlipidemia [E78.2] 10/14/2005 Benign neoplasm of colon [D12.6] 10/21/2006 12/20/2014 Ingrowing nail [L60.0] 06/09/2007 12/20/2014 UMBILICAL HERNIA [K42.9] 02/26/2009 Shoulder arthritis [M19.019] 05/18/2011 Unspecified gastritis and gastroduodenitis with*06/25/2011 12/20/2014 Benign neoplasm of rectum and anal canal [D12.8*06/25/2011 12/20/2014 Family history of prostate cancer [Z80.42] 10/16/2013 Elevated PSA [R97.20] 06/11/2014 BPH (benign prostatic hyperplasia) [N40.0] 06/11/2014 Frequency of urination [R35.0] 06/11/2014 12/20/2014 Acquired hypothyroidism [E03.9] 01/16/2016 Colon cancer screening [Z12.11] 08/05/2016 08/05/2016 Benign non-nodular prostatic hyperplasia [N40.0]08/16/2016 Chronic prostatitis [N41.1] 08/16/2016 Tendonitis, Achilles, right [M76.61] 05/26/2018 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 Hypokalemia [E87.6] 05/19/2020 Flu-like symptoms [R68.89] 05/19/2020 Lightheadedness [R42] 05/19/2020 Bilateral pulmonary embolism (HCC) [I26.99] 05/19/2020 Malnutrition of mild degree (HCC) [E44.1] 05/20/2020 Obesity, Class I, BMI 30-34.9 [E66.9] 05/20/2020 Pulmonary nodules [R91.8] 05/20/2020 Multiple lacunar infarcts (HCC) [I63.81] 05/21/2020 Other instructions from your clinician: Start the Proscar medication PATIENT INFORMATION: Benign Enlargement of the Prostate Benign (noncancerous) enlargement of the prostate, known as benign prostatic hyperplasia, or BPH, is the most common prostate problem in men. Almost all men will develop some enlargement of the prostate as they age. Who is affected by prostate enlargement? Overall, the number of men with BPH increases progressively with age. By age 60, 50% of men will have some signs of BPH. By age 85, 90% of men will have signs of the condition. About half of these men will develop symptoms that need to be treated. Does having benign prostatic hyperplasia increase your risk of developing prostate cancer? Based on research to date, having BPH does not seem to increase the risk of developing prostate cancer. However, BPH and prostate cancer have similar symptoms, and a man who has BPH may have undetected cancer at the same time. To help detect prostate cancer in its early stages, the [place] [employer] and the [place] [employer] recommend a screening every year for men ages 50 to 70. They further recommend that men who are at high risk -- such as -[place] men and men with a family history of prostate cancer -- begin screening at about age 40. Screening tests for prostate cancer include a blood test for a substance called prostate-specific antigen (PSA) and the digital rectal exam (JOCE). What are the symptoms of benign prostatic hyperplasia? Since the prostate gland surrounds the urethra (the tube that carries urine outside the body), it is easy to understand that enlargement of the prostate can lead to blockage of the tube. Therefore, you may develop: ? Slowness or dribbling of your urinary stream ? Hesitancy or difficulty starting to urinate ? Frequent urination ? Feeling of urgency (sudden need to urinate) ? Need to get up at night to urinate As symptoms progress, you may develop: The enlargement of the prostate can lead to blockage of the urethra. ? Bladder stones ? Bladder infection ? Blood in your urine ? Damage to your kidneys from back pressure caused by retaining large amounts of extra urine in the bladder ? Sudden blockage of the urinary tube, making urination impossible How is benign prostatic hyperplasia diagnosed? Your doctor will look at your medical history and give you a complete physical. Your doctor will perform a digital rectal examination by inserting a gloved, lubricated finger into your rectum to feel the prostate. Because the prostate gland is in front of the rectum, it is relatively easy for the doctor to feel much of the gland. This enables him or her to estimate the size of the prostate and to detect any hard areas that could be cancer. Several studies may be performed to help diagnose your condition: ? A seven-question survey may be completed to evaluate your symptoms. ? A flow study may be conducted to measure how slow the urinary stream is compared with normal flow. ? A study may be conducted to detect how much urine is left in the bladder after urination is completed. ? In addition, the physician may need to look into the bladder. The procedure is called cystoscopy. ? How is benign prostatic hyperplasia treated? Patients with mild symptoms may not require treatment other than continued observation to make sure their condition doesn't get worse. This approach is sometimes called watchful waiting or surveillance. There are a number of treatment options available if your symptoms are severe: Treatments for BPH include: Medication Proscar was one of the first drugs used to treat BPH. It works by slowing the production of the hormone dihydrotestosterone (DHT), which affects the growth of the prostate gland. Proscar appears to be most beneficial for men with larger prostates. Drugs that relax the muscle in the prostate (to reduce the tension on the urine tube) are more commonly used. These include Hytrin, Cardura, and Flomax. The most common side effects are light-headedness and weakness. Surgery A number of surgical procedures have been used to remove the prostate tissue blocking the flow of urine. ? The most common procedure is called transurethral resection of the prostate (TURP). There are several different variations on this technique. It involves removing the tissue blocking the urethra (urine tube) with a special instrument. Although TURP is an effective treatment, there are potential side effects, including bleeding, infection, impotence (inability to maintain an erection suitable for sex) and incontinence (inability to control the flow of urine). ? Transurethral electrovaporization: This technique uses electrical energy applied through an electrode to rapidly heat prostate tissue, turning the tissue cells into steam. This allows the doctor to vaporize an area of the enlarged tissue and relieve urinary blockage. ? The Greenlight laser: This is commonly used to treat BPH and is associated with less bleeding after the procedure. Another, less complicated procedure is transurethral incision of the prostate (TUIP). Instead of removing tissue, as with TURP, this approach involves widening the urethra by making several small cuts in the bladder neck (area where the urethra and bladder join), as well as in the prostate gland itself. This relieves some of the pressure on the urethra and improves urine flow. Prescriptions ordered this encounter Disp Refills Start End SULFAMETHOXAZOLE 800 MG-TRIMETHOPRIM* 09/29/2020 09/29/2020 Route: ORAL LIDOCAINE 2 % MUCOSAL JELLY IN APPLI* 09/29/2020 09/29/2020 Route: URETHRAL FINASTERIDE 5 MG TABLET 90 t* 3 09/29/2020 Route: ORAL Sig: Take 1 tablet by mouth once daily. Disposition: Return in about 6 months (around 04/01/2021). Follow-up and Disposition History Recorded Letter Text Encounter Status:Closed by LEEROY MARTÍNEZ MD on 10/01/20 [facility] PROGRESSon 09-29-2020 PROGRESS HNO ID: [id number] Author: Leeroy Martínez Service: ? Author Type: Physician Type: Progress Notes Filed: 10/01/2020 11:01 AM Note Text: ESTABLISHED PATIENT OFFICE VISIT PATIENT INFO: Lorenzo Reis 65 year old HPI 09/29/2020 CC: bph He has a [place] hat on Presents for cystoscopy today because of BPH and prostatism symptoms as noted below Stop the Flomax is did not think was helpful Nocturia 2?3 and daytime voiding every 2 hours about Cystoscopy today shows severe trilobar BPH I do not feel candidate for UroLift especially given prostate volume also He remains on his Eliquis with his history of DVT and discussed for TURP he would have to be off the Eliquis postop 1-2 weeks He just wants to try Proscar for now and see me back in 6 mo for transrectal ultrasound to evaluate prostate volume changes He will follow with primary physician about his anticoagulation and options in the future for that Past Urology Hx: September 02, 2020?seen by Dr. Mcgovern? Elevated PSA Negative MRI fusion biopsy. PSA in 6 months. Significant LUTS, Flomax not working well. Interested in Urolift. Cystoscopy with Dr. Martínez ?Christian Mcgovern DO QUINTEN 08/04/2020 CC: psa Patient saw Dr. Mcgovern as below and had MRI showing PI-RADS 3 lesion Did okay under local anesthetic with his initial prostate biopsy in 2016 2 months ago had blood clot to the lung and placed on Eliquis in the hospital and has been doing well but has not followed up with any specific physician who put him on Eliquis but he does have a primary physician Denies chest pain or shortness of breath We will place him on MRI fusion biopsy schedule in August but will need clearance from medical that he can stop Eliquis 2 days prior and resume 24 hours after the biopsy otherwise we will have to delay ? June 17, 2020?saw Dr. Mcgovern? Here for evaluation of rising PSA Negative prostate biopsy by Dr. Nolan in 2016. Incomplete bladder emptying - recently started on Flomax. Not helping flow much. Still having nocturia. Prostate Biopsy 09/2016 FINAL DIAGNOSIS 1. Prostate, right base lateral, needle biopsy (A) - Benign prostatic tissue with focal acute and chronic inflammation. 2. Prostate, right mid lateral, needle biopsy (B) - Benign prostatic tissue. 3. Prostate, right apex lateral, needle biopsy (C) - Benign prostatic tissue. 4. Prostate, right base medial, needle biopsy (D) - Benign prostatic tissue. 5. Prostate, right mid medial, needle biopsy (E) - Benign prostatic tissue. 6. Prostate, right apex medial, needle biopsy (F) - Benign prostatic tissue with focal chronic inflammation. 7. Prostate, left base lateral, needle biopsy (G) - Benign prostatic tissue with focal chronic inflammation. 8. Prostate, left mid lateral, needle biopsy (H) - Benign prostatic tissue. 9. Prostate, left apex lateral, needle biopsy (I) - Benign prostatic tissue. 10. Prostate, left base medial, needle biopsy (J) - Benign prostatic tissue. 11. Prostate, left mid medial, needle biopsy (K) - Benign prostatic tissue. 12. Prostate, left apex medial, needle biopsy (L) - Benign prostatic LAB: IMPRESSION/PLAN: Elevated PSA, 8.10 S/P negative biopsy in 2017. Needs prostate MRI. May mandi cystoscopy for worsening LUTS. Christian Mcgovern DO MBA RADS: September 29, 2020?cystoscopy?severe trilobar hypertrophy and unable to see trigone well and with retroflexed scope circumferential bulging of prostate into the bladder; 1+ trabeculation and low residual urine without bladder lesion, friable prostate Creatinine Date Value Ref Range Status 09/29/2020 0.84 0.73 - 1.22 mg/dL Final PSA (ng/mL) Date Value 05/01/2020 8.10 04/27/2019 6.57 04/27/2018 6.35 04/27/2017 6.15 08/16/2016 6.47 07/14/2015 4.39 05/24/2014 4.20 PSA Screening (ng/mL) Date Value 05/21/2020 8.79 Glucose, Urine (no units) Date Value 01/30/2007 NEG Bilirubin, Urine (no units) Date Value 01/30/2007 NEG Ketones, Urine (no units) Date Value 01/30/2007 NEG Specific Troup, Ur (no units) Date Value 01/30/2007 1.030 Hemoglobin/Blood,Ur (no units) Date Value 01/30/2007 TRACE pH, Urine (no units) Date Value 01/30/2007 5.0 Protein, Urine (no units) Date Value 01/30/2007 NEG Nitrites (no units) Date Value 01/30/2007 NEG Review of Systems Constitutional: Negative. HENT: Negative. Eyes: Negative. Respiratory: Negative. Cardiovascular: Negative. Gastrointestinal: Negative. Endocrine: Negative. Genitourinary: See HPI Musculoskeletal: Negative. Skin: Negative. Allergic/Immunologic: Negative. Neurological: Negative. Hematological: Negative. Psychiatric/Behavioral: Negative. I reviewed and confirmed ROS obtained by MA HISTORIES PAST MEDICAL HISTORY Diagnosis Date - Acute pulmonary embolism (HCC) 06/2020 unknown cause; pt on Eliquis - Benign neoplasm of rectum and anal canal - History of peptic ulcer disease - Pure hypercholesterolemia - Snoring - Tobacco use - Unspecified hypothyroidism FAMILY HISTORY Problem Relation Age of Onset - Alzheimer's Disease Mother - Coronary Artery Disease Father NC - Prostate Cancer Father SOCIAL HISTORY Social History Tobacco Use - Smoking status: Current Every Day Smoker Packs/day: 1.00 Years: 40.00 Pack years: 40.00 Types: Cigarettes Start date: 09/15/2018 - Smokeless tobacco: Never Used Substance Use Topics - Alcohol use: Yes Alcohol/week: 6.0 standard drinks Types: 6 Cans of Beer (12oz) per week - Drug use: No MEDICATIONS: apixaban (ELIQUIS) 5 mg tab(s), Take 1 tablet by mouth twice daily. levothyroxine (SYNTHROID) 175 mcg tablet, Take 1 tablet by mouth once daily. atorvastatin (LIPITOR) 20 mg tablet, Take 1 tablet by mouth once daily. tamsulosin ER (FLOMAX) 0.4 mg, Take 1 capsule by mouth daily at bedtime. finasteride (PROSCAR) 5 mg tablet, Take 1 tablet by mouth once daily. Physical Exam Constitutional: He is oriented to person, place, and time and well-developed, well-nourished, and in no distress. HENT: Head: Normocephalic and atraumatic. Nose: Nose normal. Eyes: EOM are normal. Neck: No tracheal deviation present. Pulmonary/Chest: Effort normal. No respiratory distress. Musculoskeletal: General: No deformity. Normal range of motion. Cervical back: Normal range of motion. Neurological: He is alert and oriented to person, place, and time. Gait normal. Skin: Skin is warm. Psychiatric: Mood, memory and affect normal. Risk/Benefit Discussion: The patient was offered a surgery/procedure at a [facility]. The surgeon/proceduralist and patient have discussed in detail the risk of exposure to and/or potential harm posed by the COVID-19 virus with having a surgery/procedure at this time versus the risk of delaying the surgery/procedure. It is not possible to know either the risk of delaying the surgery or procedure or chance of getting an infection with perfect accuracy, but a joint decision was made between the patient and the surgeon/proceduralist to proceed at this time with the scheduled surgery/procedure as indicated on the consent form. Discussed options alpha verna therapy vs proscar vs surical intervention and risks of these. Alpha bolckers can cause dizzines and falls. Discussed risk bladder decompinsation longitudinal float operator could be an issue if no surgical intervention. Proscar Review: I have discussed in great detail with the patient the treatment of prostate enlargement(BPH) using Proscar. I have explained my rationale for using Proscar, the fact that Proscar does have a side-effect of impotency or less desire for sex. I explained that there may be changes or problems with ejaculation, such as a decreased amount of semen released during sex. I explained that, in many cases, these side effects decreased as the patient continued to take Proscar. I explained the possibility of breast enlargement and/or tenderness. I further advised him that Proscar may cause an alteration in his PSA level. I explained that this medication is for men only. I strongly advised him that women who are or may be should not even handle Proscar. The patient expressed an understanding of the treatment, possible reactions, and possible prognosis. TUR Prostate I explained the options concerning surgery versus medication.I explained the possibility of impotency, retrograde ejaculation, and incontinence ,the possibility of blood loss, and transfusion and the fact that he may be admitted post operatively. I explained the post operative urgency, frequency, and dysuria. Risk of anesthesia complications, stroke, NC, etc.The patient expressed an understanding with regard to possible complications and outcome. FOLLOW UP ([id number]; 3s): Return in about 6 months (around 04/01/2021). ASSESSMENT/PLAN: 1. Benign prostatic hyperplasia with urinary obstruction - ICD9: 600.01, 599.69, ICD10: N40.1, N13.8 (primary diagnosis) - SULFAMETHOXAZOLE 800 MG-TRIMETHOPRIM 160 MG TABLET - LIDOCAINE 2 % MUCOSAL JELLY IN APPLICATOR - CYSTO.PANENDO - TRUS ONLY - FINASTERIDE 5 MG TABLET 2. Nocturia - ICD9: 788.43, ICD10: R35.1 3. Frequency of micturition - ICD9: 788.41, ICD10: R35.0 Leeroy Martínez MD Please note: This note has been produced using speech recognition software and may contain errors related to that system including grammar, punctuation, spelling, gender and words and phrases that may be inappropriate. [facility] CNOVon 09-02-2020 CNOV Office Visit (AKURFL ) CHATOLORENZO PHAM ([id number]) 1955 M Date Time Provider Department 09/02/20 10:45 AM CHRISTIAN MCGOVERN During your visit today, we recorded the following information about you: Weight Height 90.7 kg 1.753 m Christian Mcgovern DO, MBA 09/02/2020 11:39 AM Signed ?? [facility] LOCATION: [address] [place] [address] ESTABLISHED PATIENT PATIENT INFO: Lorenzo Black Reis 65 year old Chief Complaint: Elevated PSA HPI Here for evaluation of rising PSA Negative prostate biopsy by Dr. Nolan in 2017. Incomplete bladder emptying - recently started on Flomax, not helping. Not helping flow much. Still having nocturia. No hematuria. S/p MRI fusion biopsy with Dr. Martínez. Negative pathology. 1-Duration: 2019 2-Location: prostate 3-Severity: N/A 4-Quality: Not applicable 5-Context: N/A 6-Timing: N/A 7-Modifying factors: No treatment prior to referral 8-Associated signs AND symptoms: no additional symptoms No question data found. PATHOLOGY: Negative. LAB: WBC (k/uL) Date Value 05/21/2020 6.50 RBC (m/uL) Date Value 05/21/2020 4.77 Hemoglobin (g/dL) Date Value 05/21/2020 14.1 Hematocrit (%) Date Value 05/21/2020 45.1 MCV (fL) Date Value 05/21/2020 94.5 MCH (pG) Date Value 05/21/2020 29.6 MCHC (g/dL) Date Value 05/21/2020 31.3 RDW-CV (%) Date Value 05/21/2020 12.3 Platelet Count (k/uL) Date Value 05/21/2020 223 MPV (fL) Date Value 05/21/2020 10.5 Neut% (%) Date Value 05/19/2020 73.8 Lymph% (%) Date Value 05/19/2020 17.5 Victoria% (%) Date Value 05/19/2020 7.9 Eosin% (%) Date Value 05/19/2020 0.0 Baso% (%) Date Value 05/19/2020 0.8 Abs Neut (ANC) (k/uL) Date Value 05/19/2020 5.30 Abs Victoria (k/uL) Date Value 05/19/2020 0.57 Abs Eosin (k/uL) Date Value 05/19/2020 <0.03 Abs Baso (k/uL) Date Value 05/19/2020 0.06 Creatinine Date Value Ref Range Status 05/21/2020 0.83 0.73 - 1.22 mg/dL Final 05/20/2020 0.78 0.73 - 1.22 mg/dL Final 05/19/2020 0.74 0.73 - 1.22 mg/dL Final 05/01/2020 0.77 0.73 - 1.22 mg/dL Final PSA (ng/mL) Date Value 05/01/2020 8.10 04/27/2019 6.57 04/27/2018 6.35 04/27/2017 6.15 PSA Screening (ng/mL) Date Value 05/21/2020 8.79 URINE POC GLUCOSE UA (POCT) Negative 06/17/2020 BILIRUBIN UA (POCT) Negative 06/17/2020 KETONE UA (POCT) Negative 06/17/2020 SPECIFIC GRAVITY UA (POCT) 1.010 06/17/2020 HEMOGLOBIN/BLOOD UA (POCT) Small 06/17/2020 PH UA (POCT) 5.5 06/17/2020 PROTEIN UA (POCT) Negative 06/17/2020 UROBILINOGEN UA (POCT) 0.2 06/17/2020 NITRITE UA (POCT) Negative 06/17/2020 LEUKOCYTES UA (POCT) Negative 06/17/2020 COLOR UA (POCT) Yellow 06/17/2020 CLARITY UA (POCT) Clear 06/17/2020 IMAGING: None No imaging to review. ALLERGIES: ALLERGIES Allergen Reactions - Bees Swelling Swelling of throat; pt has been through desensition MEDICATIONS: levothyroxine (SYNTHROID) 175 mcg tablet Take 1 tablet by mouth once daily. atorvastatin (LIPITOR) 20 mg tablet Take 1 tablet by mouth once daily. tamsulosin ER (FLOMAX) 0.4 mg Take 1 capsule by mouth daily at bedtime. apixaban (ELIQUIS) 5 mg tab(s) Take 1 tablet by mouth twice daily. Take 2 tablets by mouth twice a day X 7 days and then take 1 tablet by mouth twice a day. Does the patient take any herbal medications?: No HISTORIES PAST MEDICAL HISTORY Diagnosis Date - Acute pulmonary embolism (HCC) 06/2020 unknown cause; pt on Eliquis - Benign neoplasm of rectum and anal canal - History of peptic ulcer disease - Pure hypercholesterolemia - Snoring - Tobacco use - Unspecified hypothyroidism Smoking Status Reviewed: Yes REVIEW OF SYSTEMS GENERAL: No fever, chills, weight loss, or fatigue. HEAD AND NECK: No blurred vision or Sjogren's syndrome CARDIOVASCULAR: NO CHEST PAIN, PALPITATIONS, ANKLE EDEMA RESPIRATORY: No chronic cough, wheezing, dyspnea, hemoptysis. MUSCULOSKELETAL: NO CHRONIC BACK PAIN, ARTHRITIS, CHRONIC NECK PAIN SKIN: NO VARICOSE VEINS, RASH, ABNORMAL ITCHING BLOOD/LYMPHATIC: No easy bleeding, easy bruising, transfusion Hx NEUROLOGICAL: NO HEADACHES, NUMBNESS, SEIZURES, STROKE PSYCHIATRIC: No depression or inordinate anxiety The remainder of the ROS was negative. PHYSICAL EXAMINATION Ht 175.3 cm (5' 9) Wt 90.7 kg (200 lb) BMI 29.53 kg/m? General appearance: Well appearing, alert, in no acute distress and well-hydrated, well nourished Skin: Skin color, texture, turgor normal, no suspicious rashes or lesions Head: Normocephalic, no masses, lesions, tenderness or abnormalities Abdomen: Normal abdominal exam, Abdomen soft, non-tender. Bowel sounds normal. No masses, organomegaly Genitourinary: MALE EXAM: Exam NOT Indicated PVR: NA IMPRESSION/PLAN: Elevated PSA Negative MRI fusion biopsy. PSA in 6 months. Significant LUTS, Flomax not working well. Interested in Urolift. Cystoscopy with Dr. Martínez I spent 30 minutes in the visit, with more than 50% of the total [id number] time of the visit in counseling / coordination of care. Christian Mcgovern DO MBA Referring Provider: LEEROY MARTÍNEZ [[id number]] Allergies As of Date: 09/02/2020 Noted Allergy Reaction BEES 10/14/2005 7 - Swelling Comments: Swelling of throat; pt has been through desensition Date Reviewed: 09/02/2020 Reviewed by: Christian Mcgovern - Fully Assessed Reason for Visit: Elevated PSA [3906] Primary Visit Diagnosis:Benign prostatic hyperplasia with urinary obstruction [N40.1, N13.8] Other Visit Diagnosis:Elevated prostate specific antigen (PSA) [R97.20] Order(s):PSA/PROSTSPECAG DIAG [SQPSA] Order #: [id number] FUTURE Prescriptions as of 09/02/2020 Sig: LEVOTHYROXINE 175 MCG TABLET Take 1 tablet by mouth once d* ATORVASTATIN 20 MG TABLET Take 1 tablet by mouth once d* TAMSULOSIN 0.4 MG CAPSULE Take 1 capsule by mouth daily* APIXABAN 5 MG TABLET Take 1 tablet by mouth twice * Problem List As Of Date 09/02/2020 Noted Resolved Pure hypercholesterolemia [E78.00] 04/26/2011 Hypothyroidism [E03.9] 10/14/2005 Mixed hyperlipidemia [E78.2] 10/14/2005 Benign neoplasm of colon [D12.6] 10/21/2006 12/20/2014 Ingrowing nail [L60.0] 06/09/2007 12/20/2014 UMBILICAL HERNIA [K42.9] 02/26/2009 Shoulder arthritis [M19.019] 05/18/2011 Unspecified gastritis and gastroduodenitis with*06/25/2011 12/20/2014 Benign neoplasm of rectum and anal canal [D12.8*06/25/2011 12/20/2014 Family history of prostate cancer [Z80.42] 10/16/2013 Elevated PSA [R97.20] 06/11/2014 BPH (benign prostatic hyperplasia) [N40.0] 06/11/2014 Frequency of urination [R35.0] 06/11/2014 12/20/2014 Acquired hypothyroidism [E03.9] 01/16/2016 Colon cancer screening [Z12.11] 08/05/2016 08/05/2016 Benign non-nodular prostatic hyperplasia [N40.0]08/16/2016 Chronic prostatitis [N41.1] 08/16/2016 Tendonitis, Achilles, right [M76.61] 05/26/2018 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 Hypokalemia [E87.6] 05/19/2020 Flu-like symptoms [R68.89] 05/19/2020 Lightheadedness [R42] 05/19/2020 Bilateral pulmonary embolism (HCC) [I26.99] 05/19/2020 Malnutrition of mild degree (HCC) [E44.1] 05/20/2020 Obesity, Class I, BMI 30-34.9 [E66.9] 05/20/2020 Pulmonary nodules [R91.8] 05/20/2020 Multiple lacunar infarcts (HCC) [I63.81] 05/21/2020 Follow-up and Disposition History Recorded Encounter Status:Closed by CHRISTIAN MCGOVERN on 09/02/20 [facility] PROGRESSon 09-02-2020 PROGRESS HNO ID: [id number] Author: Christian Mcgovern Service: ? Author Type: Physician Type: Progress Notes Filed: 09/02/2020 11:39 AM Note Text: ?? [facility] LOCATION: [address] [place] [address] ESTABLISHED PATIENT PATIENT INFO: Lorenzo Reis 65 year old Chief Complaint: Elevated PSA HPI Here for evaluation of rising PSA Negative prostate biopsy by Dr. Nolan in 2016. Incomplete bladder emptying - recently started on Flomax, not helping. Not helping flow much. Still having nocturia. No hematuria. S/p MRI fusion biopsy with Dr. Martínez. Negative pathology. 1-Duration: 2019 2-Location: prostate 3-Severity: N/A 4-Quality: Not applicable 5-Context: N/A 6-Timing: N/A 7-Modifying factors: No treatment prior to referral 8-Associated signs AND symptoms: no additional symptoms No question data found. PATHOLOGY: Negative. LAB: WBC (k/uL) Date Value 05/21/2020 6.50 RBC (m/uL) Date Value 05/21/2020 4.77 Hemoglobin (g/dL) Date Value 05/21/2020 14.1 Hematocrit (%) Date Value 05/21/2020 45.1 MCV (fL) Date Value 05/21/2020 94.5 MCH (pG) Date Value 05/21/2020 29.6 MCHC (g/dL) Date Value 05/21/2020 31.3 RDW-CV (%) Date Value 05/21/2020 12.3 Platelet Count (k/uL) Date Value 05/21/2020 223 MPV (fL) Date Value 05/21/2020 10.5 Neut% (%) Date Value 05/19/2020 73.8 Lymph% (%) Date Value 05/19/2020 17.5 Victoria% (%) Date Value 05/19/2020 7.9 Eosin% (%) Date Value 05/19/2020 0.0 Baso% (%) Date Value 05/19/2020 0.8 Abs Neut (ANC) (k/uL) Date Value 05/19/2020 5.30 Abs Victoria (k/uL) Date Value 05/19/2020 0.57 Abs Eosin (k/uL) Date Value 05/19/2020 <0.03 Abs Baso (k/uL) Date Value 05/19/2020 0.06 Creatinine Date Value Ref Range Status 05/21/2020 0.83 0.73 - 1.22 mg/dL Final 05/20/2020 0.78 0.73 - 1.22 mg/dL Final 05/19/2020 0.74 0.73 - 1.22 mg/dL Final 05/01/2020 0.77 0.73 - 1.22 mg/dL Final PSA (ng/mL) Date Value 05/01/2020 8.10 04/27/2019 6.57 04/27/2018 6.35 04/27/2017 6.15 PSA Screening (ng/mL) Date Value 05/21/2020 8.79 URINE POC GLUCOSE UA (POCT) Negative 06/17/2020 BILIRUBIN UA (POCT) Negative 06/17/2020 KETONE UA (POCT) Negative 06/17/2020 SPECIFIC GRAVITY UA (POCT) 1.010 06/17/2020 HEMOGLOBIN/BLOOD UA (POCT) Small 06/17/2020 PH UA (POCT) 5.5 06/17/2020 PROTEIN UA (POCT) Negative 06/17/2020 UROBILINOGEN UA (POCT) 0.2 06/17/2020 NITRITE UA (POCT) Negative 06/17/2020 LEUKOCYTES UA (POCT) Negative 06/17/2020 COLOR UA (POCT) Yellow 06/17/2020 CLARITY UA (POCT) Clear 06/17/2020 IMAGING: None No imaging to review. ALLERGIES: ALLERGIES Allergen Reactions - Bees Swelling Swelling of throat; pt has been through desensition MEDICATIONS: levothyroxine (SYNTHROID) 175 mcg tablet Take 1 tablet by mouth once daily. atorvastatin (LIPITOR) 20 mg tablet Take 1 tablet by mouth once daily. tamsulosin ER (FLOMAX) 0.4 mg Take 1 capsule by mouth daily at bedtime. apixaban (ELIQUIS) 5 mg tab(s) Take 1 tablet by mouth twice daily. Take 2 tablets by mouth twice a day X 7 days and then take 1 tablet by mouth twice a day. Does the patient take any herbal medications?: No HISTORIES PAST MEDICAL HISTORY Diagnosis Date - Acute pulmonary embolism (HCC) 06/2020 unknown cause; pt on Eliquis - Benign neoplasm of rectum and anal canal - History of peptic ulcer disease - Pure hypercholesterolemia - Snoring - Tobacco use - Unspecified hypothyroidism Smoking Status Reviewed: Yes REVIEW OF SYSTEMS GENERAL: No fever, chills, weight loss, or fatigue. HEAD AND NECK: No blurred vision or Sjogren's syndrome CARDIOVASCULAR: NO CHEST PAIN, PALPITATIONS, ANKLE EDEMA RESPIRATORY: No chronic cough, wheezing, dyspnea, hemoptysis. MUSCULOSKELETAL: NO CHRONIC BACK PAIN, ARTHRITIS, CHRONIC NECK PAIN SKIN: NO VARICOSE VEINS, RASH, ABNORMAL ITCHING BLOOD/LYMPHATIC: No easy bleeding, easy bruising, transfusion Hx NEUROLOGICAL: NO HEADACHES, NUMBNESS, SEIZURES, STROKE PSYCHIATRIC: No depression or inordinate anxiety The remainder of the ROS was negative. PHYSICAL EXAMINATION Ht 175.3 cm (5' 9) Wt 90.7 kg (200 lb) BMI 29.53 kg/m? General appearance: Well appearing, alert, in no acute distress and well-hydrated, well nourished Skin: Skin color, texture, turgor normal, no suspicious rashes or lesions Head: Normocephalic, no masses, lesions, tenderness or abnormalities Abdomen: Normal abdominal exam, Abdomen soft, non-tender. Bowel sounds normal. No masses, organomegaly Genitourinary: MALE EXAM: Exam NOT Indicated PVR: NA IMPRESSION/PLAN: Elevated PSA Negative MRI fusion biopsy. PSA in 6 months. Significant LUTS, Flomax not working well. Interested in Urolift. Cystoscopy with Dr. Martínez I spent 30 minutes in the visit, with more than 50% of the total [id number] time of the visit in counseling / coordination of care. Christian Mcgovern DO MBA [facility] HISTORY PHYSICALon HISTORY PHYSICAL HNO ID: [id number] Author: Haley Baires (Pa) Service: Anesthesiology Author Type: Physician [employer] Type: HANDP Filed: 08/20/2020 10:15 AM Note Text: HISTORY AND PHYSICAL EXAMINATION Lorenzo Cleaning [place] 1955 SERVICE DATE: 08/20/2020 SERVICE TIME: 9:10 AM PRIMARY CARE PHYSICIAN: Mark Ramirez MD SURGEON: Surgeon(s) and Role: * Leeroy Martínez - Primary ANESTHESIA: Local DIAGNOSIS: Elevated PSA [R97.20] PROCEDURE: Procedure(s): BIOPSY PROSTATE (N/A) MRI FUSION PROSTATE BIOPSY (N/A) Subjective CHIEF COMPLAINT: I'm here for a prostate biopsy HPI: This is a 65 year old male who presents for a prostate biopsy. The patient states he has had a gradually increasing PSA over the past year associated with symptoms of urinary hesitancy, weak stream, nocturia 2-3 x. He denies hematuria or dysuria. He had a prior prostate biopsy at some point in the past, does not remember when, but it was negative. Patient also notes his father from prostate cancer. METS: Climb a flight of stairs or walk up a hill (5.50 METs) FUNCTIONAL STATUS: Independent PAST MEDICAL HISTORY Diagnosis Date - Acute pulmonary embolism (HCC) 06/2020 unknown cause; pt on Eliquis - Benign neoplasm of rectum and anal canal - History of peptic ulcer disease - Pure hypercholesterolemia - Snoring - Tobacco use - Unspecified hypothyroidism PAST SURGICAL HISTORY Procedure Laterality Date - COLONOS W/REM POLYP SNARE 10/21/2006 Large polyp at 50cm, 3 small sessile polyps in low rectosigmoid - COLONOS W/REM POLYP SNARE 06/25/2011 polyp in rectum - COLONOSCOP W/ OR W/O BRSH SPEC 06/16/2009 Colonoscopy - COLONOSCOP W/ OR W/O BRSH SPEC 08/05/2016 Colonoscopy - COLONOSCOP W/ OR W/O BRS SPEC 02/15/2018 multiple adenomatous polyps, repeat in 3 years - DIAGNOSIS/HISTORY left 5th finger, laceration repair - PAST SURGICAL HISTORY OF Right 1979 right shoulder Dislocated collar bone, ORIF Dr. Kilgore - REPAIR UMBILICAL MARCIAL,5+Y/O,REDUC 07/15/2009 with mesh - REPAIR/GRAFT ACHILLES TENDON Right 2017 FAMILY HISTORY Problem Relation Age of Onset - Alzheimer's Disease Mother - Coronary Artery Disease Father [place] - Prostate Cancer Father Social History Tobacco Use - Smoking status: Current Every Day Smoker Packs/day: 1.00 Years: 40.00 Pack years: 40.00 Types: Cigarettes Start date: 09/15/2018 - Smokeless tobacco: Never Used Substance Use Topics - Alcohol use: Yes Alcohol/week: 6.0 standard drinks Types: 6 Cans of Beer (12oz) per week - Drug use: No Prior to Admission medications as of 08/20/20 0959 Medication Sig Last Dose Taking levothyroxine (SYNTHROID) 175 mcg tablet Take 1 tablet by mouth once daily. 08/20/2020 at Unknown time Yes atorvastatin (LIPITOR) 20 mg tablet Take 1 tablet by mouth once daily. 08/20/2020 at Unknown time Yes tamsulosin ER (FLOMAX) 0.4 mg Take 1 capsule by mouth daily at bedtime. Yes apixaban (ELIQUIS) 5 mg tab(s) Take 1 tablet by mouth twice daily. Take 2 tablets by mouth twice a day X 7 days and then take 1 tablet by mouth twice a day. 08/17/2020 Yes ALLERGIES Allergen Reactions - Bees Swelling Swelling of throat; pt has been through desensition COMPLETE REVIEW OF SYSTEMS: GENERAL: No weight loss, malaise or fevers RESPIRATORY: Positive for PE in , on Eliquis; positive smoker, positive walking pneumonia 3 weeks ago, s/p course of antibiotics, symptoms improved, still with residual productive cough, no fever or chills, no SOB denies asthma, COPD, or VERA Cardiac: Positive dyslipidemia; Negative for chest pain, leg swelling, hypertension, CHF or palpitations GI: No nausea, vomiting, or diarrhea : See HPI MUSCULOSKELETAL: Negative for joint pain or swelling, back pain or muscle pain PSYCH: Negative for sleep disturbance, mood disorder and recent psychosocial stressors ENDOCRINE: Positive hypothyroidism, no diabetes NEURO: No history of headaches, syncope, paralysis, seizures or tremors Negative for stroke, seizures or headaches. Heme/Onc: *No hx blood clots, clotting disorders, or cancer Objective PHYSICAL EXAM: 08/20/20 0920 BP: 123/81 Pulse: 74 Resp: 18 Temp: 37.2 ?C (99 ?F) TempSrc: Temporal Artery SpO2: 95% Weight: 90.7 kg (200 lb) Height: 175.3 cm (5' 9) Body mass index is 29.53 kg/m?. MENTAL STATUS: alert, oriented to person, place and time HEENT: Normocephalic/atraumatic, no lymphadenopathy, thyroid non-tender, without palpable masses/nodules or enlargement LUNGS: Lungs clear to auscultation, Good diaphragmatic excursion CARDIAC: Normal S1 and S2; no rubs, murmurs, or gallops ABDOMEN: Abdomen soft, non-tender, BS normal, No masses or organomegaly EXTREMITIES: Extremities normal, no deformities, edema, clubbing or skin discoloration. Good capillary refill., No ulcers Diagnostic tests reviewed for today's visit: Lab Value Units Date High Low HB 14.1 g/dL 05/21/2020 17.0 13.0 HCT 45.1 % 05/21/2020 51.0 39.0 WBC 6.50 k/uL 05/21/2020 11.00 3.70 PLT 223 k/uL 05/21/2020 400 150 NA 142 mmol/L 05/21/2020 144 136 K 4.6 mmol/L 05/21/2020 5.1 3.7 GLUC 109 mg/dL 05/21/2020 99 74 BUN 9 mg/dL 05/21/2020 24 9 CREAT 0.83 mg/dL 05/21/2020 1.22 0.73 PTSEC 12.4 sec 05/20/2020 13.0 9.7 INR 1.2 no uni* 05/20/2020 1.3 0.9 APTT 57.3 sec 05/20/2020 32.4 23.0 ALT 11 U/L 05/19/2020 54 10 AST 11 U/L 05/19/2020 40 14 TBILI 0.5 mg/dL 05/19/2020 1.3 0.2 TSH 0.487 uU/mL 05/01/2020 4.200 0.270 Lab Value Units Date High Low HCGQT No results within date range. UHCG No results within date range. HCG, BODY* No results within date range. Lab Value Units Date High Low ABORHD No results within date range. ABSCREEN No results within date range. Hemoglobin A1C (%) Date Value 07/17/2019 5.9 Assessment/Plan ANESTHESIA FINDINGS: Intubation History: No history of difficult intubation Significant Anesthesia Considerations: None FAMILY PROBLEMS WITH ANESTHESIA: no history of adverse anesthetic event Patient has the following medical conditions: Hyperlipidemia-on statin therapy Hx of PE in ; unknown etiology, pt on Eliquis, ok to stop for procedure per prescribing procedure. PLAN Procedure Diagnosis: Elevated PSA [R97.20] Planned Procedure: Procedure(s): BIOPSY PROSTATE (N/A) MRI FUSION PROSTATE BIOPSY (N/A) Planned Anesthetic: Local SIGNATURE: Haley Baires PA-C PATIENT NAME: Lorenzo Reis DATE: August 20, 2020 TIME: 9:10 AM PAGER/CONTACT #: [facility] OPERATIVE NOon 08-20-2020 OPERATIVE NO HNO ID: [id number] Author: Leeroy Martínez Service: Urology Author Type: Physician Type: Operative Report Filed: 08/20/2020 10:27 AM Note Text: MRI Fusion Biopsy of Prostate Lorenzo Reis a 65 year old. 08/20/2020 LOG ID: [id number] INCISION/PROCEDURE START TIME: 10:15 AM INCISION CLOSE/PROCEDURE END TIME: 10:24 AM Preop Dx: elevated PSA Post op Dx: Elevated PSA Procedure: MRI fusion biopsy of the prostate Surgeon: Leeroy Martínez MD SURGEON(S)/PROCEDURALIST(S) AND DRUM SANDER(S): Surgeon(s) and Role: * Leeroy Martínez - Primary No Additional Staff Anesthesia: local ESTIMATED BLOOD LOSS: 0 ml SPECIMENS: prostate bxs COMPLICATIONS: None Procedure: History and Physical reviewed and is unchanged. . ALLERGIES Allergen Reactions - Bees Swelling Swelling of throat; pt has been through desensition Informed Consent Discussed: Yes. Risks, benefits, alternatives and personnel discussed with patient who consents to proceed. Discussed RBAPC. Antibiotics given pre-operatively: Yes, Levaquin 500 mg po, Gentamycin 120 mg IM on arrival Huddle was performed in standard fashion and pt taken back to OR Pt placed in Lt lateral decubitus position Audible time out was performed. PSA (ng/mL) Date Value 05/01/2020 8.10 PSA Screening (ng/mL) Date Value 05/21/2020 8.79 PROSTATE ULTRASOUND/TRUS MEDICATIONS: 10 ml 1% Plain Xylocaine bharat prostatic nerve block given: Yes The prostate sonogram was obtained via transrectal approach. The gland is severely enlarged, measuring 89cc. There is a homogeneous echo pattern throughout the prostate gland. Echogenic foci within the gland consistant with clacifications were noted. There is no focal lesion within the pereferal zone of the prostate gland. MRI/US fusion/guided biopsies: The MRI image was viewed on the UroNav unit and the the image was fused to US image in standard fashion. There are 1 lesion noted on the MRI: the biopsy needle is passed using this guidence Lesion 1--6 biopsies taken Prostate biopsies taken from the site below using ultrasound guidance 1.) RIGHT BASE: 1 2.) RIGHT MID: 1 3.) RIGHT APEX: 1 4.) LEFT BASE: 1 5.) LEFT MID: 1 6.) LEFT APEX: 1 POST PROCEDURE: Pt taken to recovery room and will f/u as planned Leeroy Martínez MD [facility] SURGICAL PATHOLOGYon [address] [facility] Comment on above: Order Comment: Speci men Type: TISSUE SPECIMEN Result Comment: Surg ical Pathology Report Case: [id number] Authorizing Provider: Leeroy Martínez Collected: 08/20/2020 10:17 AM Ordering Location: LAB EKG [facility] Received: 08/21/2020 11:41 AM Pathologist: Rudy Arce MD Specimens: A) - SOFT TISSUE, Lesion #1 Prostate biopsy B) - PROSTATE, BIOPSY, RIGHT LATERAL BASE, Right lateral base C) - PROSTATE, BIOPSY, RIGHT LATERAL MID, right lateral mid D) - PROSTATE, BIOPSY, RIGHT LATERAL APEX, right lateral apex E) - PROSTATE, BIOPSY, LEFT LATERAL BASE, left lateral base F) - PROSTATE, BIOPSY, LEFT LATERAL MID, left lateral mid G) - PROSTATE, BIOPSY, LEFT LATERAL APEX, left lateral apex Performed By: #### S ####[facility] LABORATORYCLIA [id number] [place] [address] CLINICAL HISTORY Elevated PSA. [facility] Comment on above: Order Comment: Speci men Type: TISSUE SPECIMEN Performed By: #### S ####[facility] LABORATORYCLIA [id number] [place] [address] [facility] Comment on above: Order Comment: Speci men Type: TISSUE SPECIMEN Result Comment: A. P rostate, lesion #1, core biopsies Benign prostatic tissues. B. Prostate, right lateral base, core biopsy Benign prostatic tissues. C. Prostate, right lateral mid, core biopsy Benign prostatic tissues. D. Prostate, right lateral apex, core biopsy Benign prostatic tissues. E. Prostate, left lateral base, core biopsy Benign prostatic tissues. F. Prostate, left lateral mid, core biopsy Benign prostatic tissues. G. Prostate, left lateral apex, core biopsy Benign prostatic tissues. Performed By: #### S ####[facility] LABORATORYCLIA [id number] [place] [address] [address]FORMING LAB [facility] Comment on above: Order Comment: Speci men Type: TISSUE SPECIMEN Result Comment: Diag nostic interpretation performed at [facility], [address] [place] [address] CLIA# [id number] Medical Instrument Cable Fabricator: Rudy Arce M.D. Performed By: #### S ####[facility] LABORATORYCLIA [id number] [place] [address] GROSS DESCRIPTION A. SOFT TISSUE. [facility] Comment on above: Order Comment: Speci men Type: TISSUE SPECIMEN Result Comment: Rece ived in formalin labeled lesion # 1 are multiple cylindrical ramírez soft segments of tissue ranging from 0.7 to 1.7 cm in length and measuring 0.1 cm in width. The specimens are totally submitted in formalin in 2 cassettes. B. PROSTATE, BIOPSY, RIGHT LATERAL BASE. Received in formalin labeled right lateral base is a cylindrical ramírez soft segment of tissue measuring 1.5 x 0.1 x 0.1 cm. The specimen is totally submitted in 1 cassette. C. PROSTATE, BIOPSY, RIGHT LATERAL MID. Received in formalin labeled right lateral mid is a cylindrical ramírez soft segment of tissue measuring 1.4 x 0.1 x 0.1 cm. The specimen is totally submitted in 1 cassette. D. PROSTATE, BIOPSY, RIGHT LATERAL APEX. Received in formalin labeled right lateral apex is a cylindrical ramírez soft segment of tissue measuring 1.5 x 0.1 x 0.1 cm. The specimen is totally submitted in 1 cassette. E. PROSTATE, BIOPSY, LEFT LATERAL BASE. Received in formalin labeled left lateral base is a cylindrical ramírez soft segment of tissue measuring 1.0 x 0.1 x 0.1 cm. The specimen is totally submitted in 1 cassette. F. PROSTATE, BIOPSY, LEFT LATERAL MID. Received in formalin labeled left lateral mid is a cylindrical ramírez soft segment of tissue measuring 1.1 x 0.1 x 0.1 cm. The specimen is totally submitted in 1 cassette. G. PROSTATE, BIOPSY, LEFT LATERAL APEX. Received in formalin labeled left lateral apex is a cylindrical ramírez soft segment of tissue measuring 1.2 x 0.1 x 0.1 cm. The specimen is totally submitted in 1 cassette. KVB/[place] Gross examination performed at [facility], [address] [place] [address] CLIA# [id number] Performed By: #### S ####[facility] LABORATORYCLIA [id number] [place] [address] XR Chest PA and Lateralon IMPRESSION: No acute radiographic abnormality. Ticketing Clerk: MAT Transcribe Date/Time: Aug 18 2020 4:33P Dictated by : FADI TRIANA DO This examination was interpreted and the report reviewed and electronically signed by: FADI TRIANA DO on Aug 18 2020 4:33PM [facility] DIVISION OF RADIOLOGY * * *Final Report* * * DATE OF EXAM: Aug 18 2020 4:32PM WOX 5291 - XR CHEST 2V FRONTAL/LAT / PROCEDURE REASON: Bacterial pneumonia * * * * Physician Interpretation * * * * EXAMINATION: CHEST RADIOGRAPH (2 VIEW FRONTAL & LATERAL) CLINICAL HISTORY: Bacterial pneumonia MQ: XC2_6 EXAM DATE/TIME: 08/18/2020 4:32 PM COMPARISON: 07/29/2020 RESULT: Lines, tubes, and devices: None. Lungs and pleura: No consolidation. No lung mass. No pleural effusion. No pneumothorax. Small calcified nodule projecting over the LEFT lower lung field Cardiomediastinal silhouette: Normal cardiomediastinal silhouette. Bones and soft tissues: Unremarkable. DIVISION OF RADIOLOGY Provider, Kristyn Reis [facility] - 08/18/2020 * * *Final Report* * * DATE OF EXAM: Aug 18 2020 4:32PM WOX 5291 - XR CHEST 2V FRONTAL/LAT / PROCEDURE REASON: Bacterial pneumonia * * * * Physician Interpretation * * * * EXAMINATION: CHEST RADIOGRAPH (2 VIEW FRONTAL & LATERAL) CLINICAL HISTORY: Bacterial pneumonia MQ: XC2_6 EXAM DATE/TIME: 08/18/2020 4:32 PM COMPARISON: 07/29/2020 RESULT: Lines, tubes, and devices: None. Lungs and pleura: No consolidation. No lung mass. No pleural effusion. No pneumothorax. Small calcified nodule projecting over the LEFT lower lung field Cardiomediastinal silhouette: Normal cardiomediastinal silhouette. Bones and soft tissues: Unremarkable. IMPRESSION IMPRESSION: No acute radiographic abnormality. Ticketing Clerk: PSCB Transcribe Date/Time: Aug 18 2020 4:33P Dictated by : FADI TRIANA DO This examination was interpreted and the report reviewed and electronically signed by: FADI TRIANA DO on Aug 18 2020 4:33PM EST [facility] Radiology Study observation (narrative) [facility] XR Chest PA and LateralOrder ed By: Cc Provider on 08-18-2020 [facility] Wendy 08-07-2020 CNPN Telephone (AKURFL) LORENZO REIS ([id number]) 1955 M Date Time Provider Department 08/07/20 LEEROY MARTÍNEZ During your visit today, we recorded the following information about you: Radha Peraza COORD 08/11/2020 3:07 PM Addendum Pt is scheduled for MRI Fusion Bx (LOCAL) with Dr Martínez at [facility] on 08/20/20 @ 10:30am (9:00 arrival) No PAT needed. Medical clearance form faxed to Dr Mark Ramirez on 08/04/20 (f. [phone]) requesting that pt be off Eliquis 2 days before the procedure and [address] Martínez- if not okay, delay the procedure. 08/11/20- received clearance form back from Dr Ramirez- pt is cleared for surgery- low risk. Form scanned into chart. Left voice message to notify pt. 08/11/20- Pt notified. Covid test on 08/17/20 @ 12:00pm at [place] Appt with Dr Mcgovern for results on 09/02/20 @ 10:45am in [place]. Booklet given to pt in person on 08/04/20. Left detailed message to verify all info with pt on 08/08/20. Radha Peraza COORD Allergies As of Date: 08/07/2020 Noted Allergy Reaction BEES 10/14/2005 7 - Swelling Date Reviewed: 08/04/2020 Reviewed by: Leeroy Martínez - Fully Assessed Reason for Visit: Surgery Scheduled [Other] Prescriptions as of 08/07/2020 Sig: LEVOTHYROXINE 175 MCG TABLET Take 1 tablet by mouth once d* ATORVASTATIN 20 MG TABLET Take 1 tablet by mouth once d* TAMSULOSIN 0.4 MG CAPSULE Take 1 capsule by mouth daily* APIXABAN 5 MG TABLET Take 1 tablet by mouth twice * Problem List As Of Date 08/07/2020 Noted Resolved Pure hypercholesterolemia [E78.00] 04/26/2011 Hypothyroidism [E03.9] 10/14/2005 Mixed hyperlipidemia [E78.2] 10/14/2005 Benign neoplasm of colon [D12.6] 10/21/2006 12/20/2014 Ingrowing nail [L60.0] 06/09/2007 12/20/2014 UMBILICAL HERNIA [K42.9] 02/26/2009 Shoulder arthritis [M19.019] 05/18/2011 Unspecified gastritis and gastroduodenitis with*06/25/2011 12/20/2014 Benign neoplasm of rectum and anal canal [D12.8*06/25/2011 12/20/2014 Family history of prostate cancer [Z80.42] 10/16/2013 Elevated PSA [R97.20] 06/11/2014 BPH (benign prostatic hyperplasia) [N40.0] 06/11/2014 Frequency of urination [R35.0] 06/11/2014 12/20/2014 Acquired hypothyroidism [E03.9] 01/16/2016 Colon cancer screening [Z12.11] 08/05/2016 08/05/2016 Benign non-nodular prostatic hyperplasia [N40.0]08/16/2016 Chronic prostatitis [N41.1] 08/16/2016 Tendonitis, Achilles, right [M76.61] 05/26/2018 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 Hypokalemia [E87.6] 05/19/2020 Flu-like symptoms [R68.89] 05/19/2020 Lightheadedness [R42] 05/19/2020 Bilateral pulmonary embolism (HCC) [I26.99] 05/19/2020 Malnutrition of mild degree (HCC) [E44.1] 05/20/2020 Obesity, Class I, BMI 30-34.9 [E66.9] 05/20/2020 Pulmonary nodules [R91.8] 05/20/2020 Multiple lacunar infarcts (HCC) [I63.81] 05/21/2020 Encounter Status:Closed by RADHA BARNES on 08/07/[address] [facility] HOSPon 08-06-2020 HOSP Patient:Lorenzo Reis MRN: Height:5' 9(1.753 m) Weight:200 lb (90.719 kg) Outpatient Medications as of 08/20/20: levothyroxine (SYNTHROID) 175 mcg tablet atorvastatin (LIPITOR) 20 mg tablet tamsulosin ER (FLOMAX) 0.4 mg apixaban (ELIQUIS) 5 mg tab(s) Admission/Clinic Administered Medications as of 08/20/20: acetaminophen 975 mg tab(s) (TYLENOL) levoFLOXacin 500 mg tab(s) (LEVAQUIN) gentamicin 40 mg/mL 120 mg injection Problem List: Hypothyroidism [E03.9] Mixed hyperlipidemia [E78.2] Umbilical hernia without mention of obstruction or gangrene [K42.9] Shoulder arthritis [M19.019] Family history of prostate cancer [Z80.42] Elevated PSA [R97.20] BPH (benign prostatic hyperplasia) [N40.0] Acquired hypothyroidism [E03.9] Benign non-nodular prostatic hyperplasia [N40.0] Chronic prostatitis [N41.1] Tendonitis, Achilles, right [M76.61] 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): Mark Ramirez MD 08/18/2020 5:34 PM Signed Please notify patient that his CXR is normal, so his pneumonia has completely cleared, and nothing further needs to be done MD Cynthia Lora Ma 08/19/2020 8:15 AM Signed Pt notified via [facility]. Cynthia Chi Ma Progress Notes ([facility]): RT Jazzy, Tech 08/18/2020 4:33 PM Signed Radiology Service Progress Note PATIENT NAME: Lorenzo Reis DATE OF SERVICE: August 18, 2020 TIME: 4:25 PM PATIENT IDENTITY VERIFICATION COMPLETED USING TWO (2) IDENTIFIERS: Name and Date of confirmed by patient verbally. FALL SCREENING: Has the patient had 2 falls in the last year or 1 fall with injury or currently using an Ambulatory Assistive Device (Walker, Cane, Wheelchair, Crutches, etc.)? No PATIENT GENDER DATA: Male PATIENT RELEVANT IMPLANT DATA REVIEWED: Yes RADIOLOGY DEPARTMENT: General X-ray: Exam(s) Completed: Chest X-Ray PERIPHERAL IV DATA: Not applicable SIGNED BY: RT Jazzy August 18, 2020 4:[address] [facility] CNOVon 08-04-2020 CNOV Office Visit (AKURFL ) LORENZO REIS ([id number]) 1955 M Date Time Provider Department 08/04/20 1:45 PM LEEROY MARTÍNEZ During your visit today, we recorded the following information about you: Weight Height 92.1 kg 1.753 m Leeroy Martínez MD 08/06/2020 2:04 PM Signed ESTABLISHED PATIENT OFFICE VISIT PATIENT INFO: Lorenzo Reis 65 year old HPI 08/04/2020 CC: psa Patient saw Dr. Mcgovern as below and had MRI showing PI-RADS 3 lesion Did okay under local anesthetic with his initial prostate biopsy in 2017 2 months ago had blood clot to the lung and placed on Eliquis in the hospital and has been doing well but has not followed up with any specific physician who put him on Eliquis but he does have a primary physician Denies chest pain or shortness of breath We will place him on MRI fusion biopsy schedule in August but will need clearance from medical that he can stop Eliquis 2 days prior and resume 24 hours after the biopsy otherwise we will have to delay Past Urology Hx: June 17, 2020?saw Dr. Mcgovern? Here for evaluation of rising PSA Negative prostate biopsy by Dr. Nolan in 2017. Incomplete bladder emptying - recently started on Flomax. Not helping flow much. Still having nocturia. Prostate Biopsy 09/2016 FINAL DIAGNOSIS 1. Prostate, right base lateral, needle biopsy (A) - Benign prostatic tissue with focal acute and chronic inflammation. 2. Prostate, right mid lateral, needle biopsy (B) - Benign prostatic tissue. 3. Prostate, right apex lateral, needle biopsy (C) - Benign prostatic tissue. 4. Prostate, right base medial, needle biopsy (D) - Benign prostatic tissue. 5. Prostate, right mid medial, needle biopsy (E) - Benign prostatic tissue. 6. Prostate, right apex medial, needle biopsy (F) - Benign prostatic tissue with focal chronic inflammation. 7. Prostate, left base lateral, needle biopsy (G) - Benign prostatic tissue with focal chronic inflammation. 8. Prostate, left mid lateral, needle biopsy (H) - Benign prostatic tissue. 9. Prostate, left apex lateral, needle biopsy (I) - Benign prostatic tissue. 10. Prostate, left base medial, needle biopsy (J) - Benign prostatic tissue. 11. Prostate, left mid medial, needle biopsy (K) - Benign prostatic tissue. 12. Prostate, left apex medial, needle biopsy (L) - Benign prostatic LAB: IMPRESSION/PLAN: Elevated PSA, 8.10 S/P negative biopsy in 2017. Needs prostate MRI. May mandi cystoscopy for worsening LUTS. Christian Mcgovern, QUINTEN Creatinine Date Value Ref Range Status 05/21/2020 0.83 0.73 - 1.22 mg/dL Final PSA (ng/mL) Date Value 05/01/2020 8.10 04/27/2019 6.57 04/27/2018 6.35 04/27/2017 6.15 08/16/2016 6.47 07/14/2015 4.39 05/24/2014 4.20 PSA Screening (ng/mL) Date Value 05/21/2020 8.79 Glucose, Urine (no units) Date Value 01/30/2007 NEG Bilirubin, Urine (no units) Date Value 01/30/2007 NEG Ketones, Urine (no units) Date Value 01/30/2007 NEG Specific Troup, Ur (no units) Date Value 01/30/2007 1.030 Hemoglobin/Blood,Ur (no units) Date Value 01/30/2007 TRACE pH, Urine (no units) Date Value 01/30/2007 5.0 Protein, Urine (no units) Date Value 01/30/2007 NEG Nitrites (no units) Date Value 01/30/2007 NEG Review of Systems Constitutional: Negative for chills, fatigue, fever and unexpected weight change. HENT: Negative for ear pain, sinus pressure and sore throat. Eyes: Negative for pain. Respiratory: Negative for chest tightness, shortness of breath and wheezing. Cardiovascular: Negative for chest pain and leg swelling. Gastrointestinal: Negative for abdominal pain, blood in stool, constipation, diarrhea and nausea. Endocrine: Negative for cold intolerance and heat intolerance. Genitourinary: Negative for decreased urine volume, difficulty urinating, dysuria, enuresis, flank pain, frequency, genital sores, hematuria and urgency. Neurological: Negative for dizziness, tremors and headaches. Hematological: Does not bruise/bleed easily. Psychiatric/Behavioral: Negative for behavioral problems. The patient is not nervous/anxious. I reviewed and confirmed ROS obtained by MA HISTORIES PAST MEDICAL HISTORY Diagnosis Date - Acute pulmonary embolism (HCC) past, om Eliquis - Benign neoplasm of rectum and anal canal - PMH - PAST MEDICAL HISTORY OF old hx of stomach ulceration - Pure hypercholesterolemia - Snoring - Tobacco use - Unspecified hypothyroidism FAMILY HISTORY Problem Relation Age of Onset - Alzheimer's Disease Mother - Coronary Artery Disease Father [place] - Prostate Cancer Father SOCIAL HISTORY Social History Tobacco Use - Smoking status: Current Every Day Smoker Packs/day: 1.00 Years: 40.00 Pack years: 40.00 Types: Cigarettes Start date: 09/15/2018 - Smokeless tobacco: Never Used Substance Use Topics - Alcohol use: Yes Alcohol/week: 6.0 standard drinks Types: 6 Cans of Beer (12oz) per week - Drug use: No MEDICATIONS: levothyroxine (SYNTHROID) 175 mcg tablet, Take 1 tablet by mouth once daily. atorvastatin (LIPITOR) 20 mg tablet, Take 1 tablet by mouth once daily. tamsulosin ER (FLOMAX) 0.4 mg, Take 1 capsule by mouth daily at bedtime. apixaban (ELIQUIS) 5 mg tab(s), Take 1 tablet by mouth twice daily. Take 2 tablets by mouth twice a day X 7 days and then take 1 tablet by mouth twice a day. Physical Exam Constitutional: He is oriented to person, place, and time and well-developed, well-nourished, and in no distress. HENT: Head: Normocephalic and atraumatic. Nose: Nose normal. Eyes: EOM are normal. Neck: No tracheal deviation present. Pulmonary/Chest: Effort normal. No respiratory distress. Musculoskeletal: General: No deformity. Normal range of motion. Cervical back: Normal range of motion. Neurological: He is alert and oriented to person, place, and time. Gait normal. Skin: Skin is warm. Psychiatric: Mood, memory and affect normal. Risk/Benefit Discussion: The patient was offered a surgery/procedure at a [facility] facility. The surgeon/proceduralist and patient have discussed in detail the risk of exposure to and/or potential harm posed by the COVID-19 virus with having a surgery/procedure at this time versus the risk of delaying the surgery/procedure. It is not possible to know either the risk of delaying the surgery or procedure or chance of getting an infection with perfect accuracy, but a joint decision was made between the patient and the surgeon/proceduralist to proceed at this time with the scheduled surgery/procedure as indicated on the consent form. Prostate Ultrasound With Needle Biopsy Prostate Patient was instructed to stop all aspirin type products 7 days prior to the procedure. I explained the options concerning the findings of a prostatic nodule both with and without an elevated PSA, as well as an elevated PSA without a prostate nodule. I specifically explained the possible complications, and the fact that a negative prostate biopsy does not definitely indicate that there is no prostate cancer present, but only that there was no malignancy found in the biopsy specimens. I explained the possibility of impotency and some incontinence, blood in the urine, stool/possible severe and admition to hospital , and/or semen. He may also experience frequency, urgency, and dysuria after the procedure. I explained the remote possibility of blood loss and the possibility of infection of the prostate and rectum post operatively/sepsis risk. The patient expressed an understanding with regard to possible benefits, risks, complications and outcome. FOLLOW UP ([id number]; 3s): Return if symptoms worsen or fail to improve. ASSESSMENT/PLAN: 1. Elevated prostate specific antigen (PSA) - ICD9: 790.93, ICD10: R97.20 Health and wellness?MRI fusion biopsy of prostate/local Need approval to be off Eliquis for the biopsy Leeroy Martínez MD Please note: This note has been produced using speech recognition software and may contain errors related to that system including grammar, punctuation, spelling, gender and words and phrases that may be inappropriate. Leeroy Martínez MD 08/04/2020 2:21 PM Signed PATIENT INFORMATION: You may take Baby aspirin if you are on it Do not take high dose aspirin ,ibuprofen or other blood thinner type products for 1 week prior to the biopsy: Blood thinners can include also Advil, Motrin, Naprosyn, naproxen, Aleve, Plavix, Coumadin, etc. Referring Provider: CHRISTIAN MCGOVERN [[id number]] Allergies As of Date: 08/04/2020 Noted Allergy Reaction BEES 10/14/2005 7 - Swelling Date Reviewed: 08/04/2020 Reviewed by: Leeroy Martínez - Fully Assessed Reason for Visit: Prostate Problem [89] Primary Visit Diagnosis:Elevated prostate specific antigen (PSA) [R97.20] Prescriptions as of 08/04/2020 Sig: LEVOTHYROXINE 175 MCG TABLET Take 1 tablet by mouth once d* ATORVASTATIN 20 MG TABLET Take 1 tablet by mouth once d* TAMSULOSIN 0.4 MG CAPSULE Take 1 capsule by mouth daily* APIXABAN 5 MG TABLET Take 1 tablet by mouth twice * Problem List As Of Date 08/04/2020 Noted Resolved Pure hypercholesterolemia [E78.00] 04/26/2011 Hypothyroidism [E03.9] 10/14/2005 Mixed hyperlipidemia [E78.2] 10/14/2005 Benign neoplasm of colon [D12.6] 10/21/2006 12/20/2014 Ingrowing nail [L60.0] 06/09/2007 12/20/2014 UMBILICAL HERNIA [K42.9] 02/26/2009 Shoulder arthritis [M19.019] 05/18/2011 Unspecified gastritis and gastroduodenitis with*06/25/2011 12/20/2014 Benign neoplasm of rectum and anal canal [D12.8*06/25/2011 12/20/2014 Family history of prostate cancer [Z80.42] 10/16/2013 Elevated PSA [R97.20] 06/11/2014 BPH (benign prostatic hyperplasia) [N40.0] 06/11/2014 Frequency of urination [R35.0] 06/11/2014 12/20/2014 Acquired hypothyroidism [E03.9] 01/16/2016 Colon cancer screening [Z12.11] 08/05/2016 08/05/2016 Benign non-nodular prostatic hyperplasia [N40.0]08/16/2016 Chronic prostatitis [N41.1] 08/16/2016 Tendonitis, Achilles, right [M76.61] 05/26/2018 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 Hypokalemia [E87.6] 05/19/2020 Flu-like symptoms [R68.89] 05/19/2020 Lightheadedness [R42] 05/19/2020 Bilateral pulmonary embolism (HCC) [I26.99] 05/19/2020 Malnutrition of mild degree (HCC) [E44.1] 05/20/2020 Obesity, Class I, BMI 30-34.9 [E66.9] 05/20/2020 Pulmonary nodules [R91.8] 05/20/2020 Multiple lacunar infarcts (HCC) [I63.81] 05/21/2020 Other instructions from your clinician: PATIENT INFORMATION: You may take Baby aspirin if you are on it Do not take high dose aspirin ,ibuprofen or other blood thinner type products for 1 week prior to the biopsy: Blood thinners can include also Advil, Motrin, Naprosyn, naproxen, Aleve, Plavix, Coumadin, etc. Disposition: Return if symptoms worsen or fail to improve. Follow-up and Disposition History Recorded Encounter Status:Closed by LEEROY MARTÍNEZ MD on 08/06/20 [facility] PROGRESSon 08-04-2020 PROGRESS HNO ID: [id number] Author: Leeroy Martínez Service: ? Author Type: Physician Type: Progress Notes Filed: 08/06/2020 2:04 PM Note Text: ESTABLISHED PATIENT OFFICE VISIT PATIENT INFO: Lorenzo Reis 65 year old HPI 08/04/2020 CC: psa Patient saw Dr. Mcgovern as below and had MRI showing PI-RADS 3 lesion Did okay under local anesthetic with his initial prostate biopsy in 2016 2 months ago had blood clot to the lung and placed on Eliquis in the hospital and has been doing well but has not followed up with any specific physician who put him on Eliquis but he does have a primary physician Denies chest pain or shortness of breath We will place him on MRI fusion biopsy schedule in August but will need clearance from medical that he can stop Eliquis 2 days prior and resume 24 hours after the biopsy otherwise we will have to delay Past Urology Hx: June 17, 2020?saw Dr. Mcgovern? Here for evaluation of rising PSA Negative prostate biopsy by Dr. Nolan in 2016. Incomplete bladder emptying - recently started on Flomax. Not helping flow much. Still having nocturia. Prostate Biopsy 09/2016 FINAL DIAGNOSIS 1. Prostate, right base lateral, needle biopsy (A) - Benign prostatic tissue with focal acute and chronic inflammation. 2. Prostate, right mid lateral, needle biopsy (B) - Benign prostatic tissue. 3. Prostate, right apex lateral, needle biopsy (C) - Benign prostatic tissue. 4. Prostate, right base medial, needle biopsy (D) - Benign prostatic tissue. 5. Prostate, right mid medial, needle biopsy (E) - Benign prostatic tissue. 6. Prostate, right apex medial, needle biopsy (F) - Benign prostatic tissue with focal chronic inflammation. 7. Prostate, left base lateral, needle biopsy (G) - Benign prostatic tissue with focal chronic inflammation. 8. Prostate, left mid lateral, needle biopsy (H) - Benign prostatic tissue. 9. Prostate, left apex lateral, needle biopsy (I) - Benign prostatic tissue. 10. Prostate, left base medial, needle biopsy (J) - Benign prostatic tissue. 11. Prostate, left mid medial, needle biopsy (K) - Benign prostatic tissue. 12. Prostate, left apex medial, needle biopsy (L) - Benign prostatic LAB: IMPRESSION/PLAN: Elevated PSA, 8.10 S/P negative biopsy in 2017. Needs prostate MRI. November mandi cystoscopy for worsening LUTS. Christian Mcgovern QUINTEN Creatinine Date Value Ref Range Status 05/21/2020 0.83 0.73 - 1.22 mg/dL Final PSA (ng/mL) Date Value 05/01/2020 8.10 04/27/2019 6.57 04/27/2018 6.35 04/27/2017 6.15 08/16/2016 6.47 07/14/2015 4.39 05/24/2014 4.20 PSA Screening (ng/mL) Date Value 05/21/2020 8.79 Glucose, Urine (no units) Date Value 01/30/2007 NEG Bilirubin, Urine (no units) Date Value 01/30/2007 NEG Ketones, Urine (no units) Date Value 01/30/2007 NEG Specific Troup, Ur (no units) Date Value 01/30/2007 1.030 Hemoglobin/Blood,Ur (no units) Date Value 01/30/2007 TRACE pH, Urine (no units) Date Value 01/30/2007 5.0 Protein, Urine (no units) Date Value 01/30/2007 NEG Nitrites (no units) Date Value 01/30/2007 NEG Review of Systems Constitutional: Negative for chills, fatigue, fever and unexpected weight change. HENT: Negative for ear pain, sinus pressure and sore throat. Eyes: Negative for pain. Respiratory: Negative for chest tightness, shortness of breath and wheezing. Cardiovascular: Negative for chest pain and leg swelling. Gastrointestinal: Negative for abdominal pain, blood in stool, constipation, diarrhea and nausea. Endocrine: Negative for cold intolerance and heat intolerance. Genitourinary: Negative for decreased urine volume, difficulty urinating, dysuria, enuresis, flank pain, frequency, genital sores, hematuria and urgency. Neurological: Negative for dizziness, tremors and headaches. Hematological: Does not bruise/bleed easily. Psychiatric/Behavioral: Negative for behavioral problems. The patient is not nervous/anxious. I reviewed and confirmed ROS obtained by MA HISTORIES PAST MEDICAL HISTORY Diagnosis Date - Acute pulmonary embolism (HCC) past, om Eliquis - Benign neoplasm of rectum and anal canal - PMH - PAST MEDICAL HISTORY OF old hx of stomach ulceration - Pure hypercholesterolemia - Snoring - Tobacco use - Unspecified hypothyroidism FAMILY HISTORY Problem Relation Age of Onset - Alzheimer's Disease Mother - Coronary Artery Disease Father [place] - Prostate Cancer Father SOCIAL HISTORY Social History Tobacco Use - Smoking status: Current Every Day Smoker Packs/day: 1.00 Years: 40.00 Pack years: 40.00 Types: Cigarettes Start date: 09/15/2018 - Smokeless tobacco: Never Used Substance Use Topics - Alcohol use: Yes Alcohol/week: 6.0 standard drinks Types: 6 Cans of Beer (12oz) per week - Drug use: No MEDICATIONS: levothyroxine (SYNTHROID) 175 mcg tablet, Take 1 tablet by mouth once daily. atorvastatin (LIPITOR) 20 mg tablet, Take 1 tablet by mouth once daily. tamsulosin ER (FLOMAX) 0.4 mg, Take 1 capsule by mouth daily at bedtime. apixaban (ELIQUIS) 5 mg tab(s), Take 1 tablet by mouth twice daily. Take 2 tablets by mouth twice a day X 7 days and then take 1 tablet by mouth twice a day. Physical Exam Constitutional: He is oriented to person, place, and time and well-developed, well-nourished, and in no distress. HENT: Head: Normocephalic and atraumatic. Nose: Nose normal. Eyes: EOM are normal. Neck: No tracheal deviation present. Pulmonary/Chest: Effort normal. No respiratory distress. Musculoskeletal: General: No deformity. Normal range of motion. Cervical back: Normal range of motion. Neurological: He is alert and oriented to person, place, and time. Gait normal. Skin: Skin is warm. Psychiatric: Mood, memory and affect normal. Risk/Benefit Discussion: The patient was offered a surgery/procedure at a [facility]. The surgeon/proceduralist and patient have discussed in detail the risk of exposure to and/or potential harm posed by the COVID-19 virus with having a surgery/procedure at this time versus the risk of delaying the surgery/procedure. It is not possible to know either the risk of delaying the surgery or procedure or chance of getting an infection with perfect accuracy, but a joint decision was made between the patient and the surgeon/proceduralist to proceed at this time with the scheduled surgery/procedure as indicated on the consent form. Prostate Ultrasound With Needle Biopsy Prostate Patient was instructed to stop all aspirin type products 7 days prior to the procedure. I explained the options concerning the findings of a prostatic nodule both with and without an elevated PSA, as well as an elevated PSA without a prostate nodule. I specifically explained the possible complications, and the fact that a negative prostate biopsy does not definitely indicate that there is no prostate cancer present, but only that there was no malignancy found in the biopsy specimens. I explained the possibility of impotency and some incontinence, blood in the urine, stool/possible severe and admition to hospital , and/or semen. He may also experience frequency, urgency, and dysuria after the procedure. I explained the remote possibility of blood loss and the possibility of infection of the prostate and rectum post operatively/sepsis risk. The patient expressed an understanding with regard to possible benefits, risks, complications and outcome. FOLLOW UP (3fNUT8m; 3s): Return if symptoms worsen or fail to improve. ASSESSMENT/PLAN: 1. Elevated prostate specific antigen (PSA) - ICD9: 790.93, ICD10: R97.20 Health and wellness?MRI fusion biopsy of prostate/local Need approval to be off [facility] for the biopsy Leeroy Martínez MD Please note: This note has been produced using speech recognition software and may contain errors related to that system including grammar, punctuation, spelling, gender and words and phrases that may be inappropriate. Normal [facility] XR Chest PA and Lateralon IMPRESSION: Patchy multifocal bilateral airspace opacities, concerning for multifocal infection. Ticketing Clerk: MAT Transcribe Date/Time: Jul 29 2020 8:34A Dictated by : WILLIAM SERRANO MD This examination was interpreted and the report reviewed and electronically signed by: WILLIAM SERRANO MD on Jul 29 2020 8:36AM [facility] DIVISION OF RADIOLOGY * * *Final Report* * * DATE OF EXAM: Jul 29 2020 8:30AM WOX [id number] - XR CHEST 2V FRONTAL/LAT / PROCEDURE REASON: Bacterial pneumonia * * * * Physician Interpretation * * * * EXAMINATION: CHEST RADIOGRAPH (2 VIEW FRONTAL & LATERAL) CLINICAL HISTORY: Bacterial pneumonia MQ: XC2_6 EXAM DATE/TIME: 07/29/2020 8:30 AM COMPARISON: 07/14/2020 RESULT: Patchy multifocal bilateral airspace opacities, right greater than left. Consider multifocal infection. Heart is normal in size. There is no pleural effusion, pneumothorax, or pulmonary vascular redistribution. Atherosclerotic calcifications are present thoracic aorta. There is scoliosis, osteopenia, and multilevel degenerative change with thoracic spine. Bilateral shoulder DJD. DIVISION OF RADIOLOGY Provider, Kristyn Malik - 07/29/2020 * * *Final Report* * * DATE OF EXAM: Jul 29 2020 8:30AM WOX [id number] - XR CHEST 2V FRONTAL/LAT / PROCEDURE REASON: Bacterial pneumonia * * * * Physician Interpretation * * * * EXAMINATION: CHEST RADIOGRAPH (2 VIEW FRONTAL & LATERAL) CLINICAL HISTORY: Bacterial pneumonia MQ: XC2_6 EXAM DATE/TIME: 07/29/2020 8:30 AM COMPARISON: 07/14/2020 RESULT: Patchy multifocal bilateral airspace opacities, right greater than left. Consider multifocal infection. Heart is normal in size. There is no pleural effusion, pneumothorax, or pulmonary vascular redistribution. Atherosclerotic calcifications are present thoracic aorta. There is scoliosis, osteopenia, and multilevel degenerative change with thoracic spine. Bilateral shoulder DJD. IMPRESSION IMPRESSION: Patchy multifocal bilateral airspace opacities, concerning for multifocal infection. Ticketing Clerk: PSCB Transcribe Date/Time: Jul 29 2020 8:34A Dictated by : WILLIAM SERRANO MD This examination was interpreted and the report reviewed and electronically signed by: WILLIAM SERRANO MD on Jul 29 2020 8:36AM EST [facility] Radiology Study observation (narrative) [facility] XR Chest PA and LateralOrder ed By: Ccf Provider on 07-29-2020 [facility] CNPLuz 07-16-2020 CNPN Telephone (UROLAE) LORENZO REIS ([id number]) 1955 M Date Time Provider Department 07/16/20 CHRISTIAN MCGOVERN During your visit today, we recorded the following information about you: Dayana Dowling Cma 07/16/2020 2:19 PM Signed Pt called requesting results of 07/08/20 MRI. Dayana Jj MA 07/22/2020 10:32 AM Signed Pt called in for results on MRI done 07/08/20 please advise. Bob Mcgovern DO, MBA 07/23/2020 2:25 PM Signed IMPRESSION: PIRADS 3. Nonencapsulated nodule in the left mid gland, with minimal restricted diffusion. No suspicious osseous lesion or pelvic lymphadenopathy. There is a small lesion in the prostate. If we are concerned we may perform a fusion biopsy. Or a PSA in 6 months. Any further questions he will need an office visit. Bob Jj MA 07/23/2020 2:43 PM Signed Left vm for pt to return call for results. Bob Robles LPN 07/24/2020 2:26 PM Signed I spoke with pt's . Pt unable to call due to his work schedule. Results given Due to pt's family hx of prostate cancer, is requesting fusion biopsy to be scheduled. Theresa Mcgovern DO, MBA 07/24/2020 3:15 PM Signed Refer to Dr. Martínez to schedule fusion biopsy of the prostate. Appointment with me afterwards. Leeroy Martínez MD 07/25/2020 7:33 AM Signed Radha Go ahead and put patient on August MRI fusion biopsy schedule Schedule him to see me in the office at least 1 week prior to the fusion biopsy schedule Radha ODONNELL 07/31/2020 9:52 AM Signed Pt notified biopsy will be scheduled for 08/20/20. Appt with Dr Martínez scheduled for 08/04/20 @ 1:45pm. Radha ODONNELL Allergies As of Date: 07/16/2020 Noted Allergy Reaction BEES 10/14/2005 7 - Swelling Date Reviewed: 07/14/2020 Reviewed by: Lisa Zepeda) LESLEY Bellamy - Fully Assessed Reason for Visit: Results [95] Prescriptions as of 07/16/2020 Sig: X DOXYCYCLINE MONOHYDRATE 100 M* Take 1 tablet by mouth twice * LEVOTHYROXINE 175 MCG TABLET Take 1 tablet by mouth once d* ATORVASTATIN 20 MG TABLET Take 1 tablet by mouth once d* TAMSULOSIN 0.4 MG CAPSULE Take 1 capsule by mouth daily* APIXABAN 5 MG TABLET Take 1 tablet by mouth twice * X CHANTIX STARTING MONTH BOX 0.* Take 1 tablet (0.5 mg) by laurita* Patient not taking: Reported on 06/17/2020 Problem List As Of Date 07/16/2020 Noted Resolved Pure hypercholesterolemia [E78.00] 04/26/2011 Hypothyroidism [E03.9] 10/14/2005 Mixed hyperlipidemia [E78.2] 10/14/2005 Benign neoplasm of colon [D12.6] 10/21/2006 12/20/2014 Ingrowing nail [L60.0] 06/09/2007 12/20/2014 UMBILICAL HERNIA [K42.9] 02/26/2009 Shoulder arthritis [M19.019] 05/18/2011 Unspecified gastritis and gastroduodenitis with*06/25/2011 12/20/2014 Benign neoplasm of rectum and anal canal [D12.8*06/25/2011 12/20/2014 Family history of prostate cancer [Z80.42] 10/16/2013 Elevated PSA [R97.20] 06/11/2014 BPH (benign prostatic hyperplasia) [N40.0] 06/11/2014 Frequency of urination [R35.0] 06/11/2014 12/20/2014 Acquired hypothyroidism [E03.9] 01/16/2016 Colon cancer screening [Z12.11] 08/05/2016 08/05/2016 Benign non-nodular prostatic hyperplasia [N40.0]08/16/2016 Chronic prostatitis [N41.1] 08/16/2016 Tendonitis, Achilles, right [M76.61] 05/26/2018 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 Hypokalemia [E87.6] 05/19/2020 Flu-like symptoms [R68.89] 05/19/2020 Lightheadedness [R42] 05/19/2020 Bilateral pulmonary embolism (HCC) [I26.99] 05/19/2020 Malnutrition of mild degree (HCC) [E44.1] 05/20/2020 Obesity, Class I, BMI 30-34.9 [E66.9] 05/20/2020 Pulmonary nodules [R91.8] 05/20/2020 Multiple lacunar infarcts (HCC) [I63.81] 05/21/2020 Encounter Status:Closed by CHRISTIAN MCGOVERN on 07/23/[address] [facility] MRI PROSTATE WO/W IVCONon MRI PROSTATE WO/W IVCON Final Report DATE OF EXAM: Jul 08 2020 11:34AM [facility] [id number] - MRI PROSTATE WO/W IVCON / PROCEDURE REASON: Elevated prostate specific antigen (PSA) Physician Interpretation EXAMINATION: MRI PELVIS WITHOUT AND WITH IV CONTRAST (MULTIPARAMETRIC PROSTATE MRI) IV CONTRAST CLINICAL HISTORY: 65 years old elevated PSA Previous biopsy: 09/2016, negative PSA: 8.1 ng/mL (04/2020) ; 6.76ng/mL (04/2019) ; Prior therapy: None. COMPARISON: None TECHNIQUE: Multiparametric MRI of the prostate and pelvis performed on a 3T scanner utilizing phase pelvic coil. Sequences obtained: multiplanar T2-WI with small FOV; Axial DWI with multiple B-values and creation of ADC-maps; DCE T1-weighted images through the prostate obtained before, during and after the administration of intravenous gadolinium; prostate dimensions and volume were obtained using a semi-automated software (Therabiol). CONTRAST: IV: 20 cc of (Dotarem). RESULT: Prostate: Dimensions: 5.8 x 5.3 x 5.6 cm corresponding to a volume of approximately 90 cc. PSA density 0.09 ng/mL/cc Post biopsy hemorrhage: Absent Peripheral zone: Evaluation of the posterior peripheral zone is degraded due to susceptibility artifact from the rectal gas, although no suspicious lesion is present on the T2-weighted images.Linear and/or wedge-shaped T2/ADC map hypointensities predominantly in the anterior transition zone in the left mid gland and posterior mid gland bilaterally suggesting prostatitis (PI-RADS 2). Transition zone: There is transition zone hypertrophy, without focal abnormalities suspicious for clinically significant disease (PI-RADS 1). Lesion #1: Location: left mid to apex transition zone Greatest dimension: 0.9-cm (series:7; image:15) T2-WI: Heterogenous signal intensity with obscured margins (score 3) DWI/ADC: Focal hypointense on ADC and/or focal hyperintense on high b-value DWI (score 3) DCE: Negative Extra-prostatic extension: Absent (no capsule/AFM contact) PI-RADS assessment category: 3, might represent atypical BPH nodule. Neurovascular bundle: Unremarkable. Seminal vesicles: Unremarkable. Adjacent Organ Involvement: Not applicable. Lymph nodes: No enlarged pelvic lymph nodes. Bladder: Circumferential wall thickening suggesting chronic outlet obstruction. Pelvic bones: No suspicious pelvic osseous lesions. Other Findings: None. IMPRESSION: PIRADS 3. Nonencapsulated nodule in the left mid gland, with minimal restricted diffusion. No suspicious osseous lesion or pelvic lymphadenopathy. Number of targets created for MR/US fusion biopsy: Peripheral zone: 0 Transition zone: 0 If present, targets were numbered in order of level of suspicion for clinically significant prostate cancer ([place] score 3 + 4 or higher). PI-RADS v2.1 Assessment Categories: PI-RADS 1: Clinically significant cancer is highly unlikely PI-RADS 2: Clinically significant cancer is unlikely PI-RADS 3: Clinically significant cancer is equivocal PI-RADS 4: Clinically significant cancer is likely PI-RADS 5: Clinically significant cancer is highly likely (V.05.2018) Ticketing Clerk: MAT Transcribe Date/Time: Jul 14 2020 10:36A Dictated by : JOHANNA IGNACIO MD This examination was interpreted and the report reviewed and electronically signed by: JOHANNA IGNACIO MD on Jul 14 2020 5:35PM EST [facility] PROGRESSon 07-08-2020 PROGRESS HNO ID: [id number] Author: Larry Kimball (Rt) Service: Radiology Author Type: Senior Office Assistant Type: Progress Notes Filed: 07/08/2020 11:18 AM Note Text: Radiology Service Progress Note DATE OF SERVICE: July 08, 2020 TIME: 11:17 AM PATIENT IDENTITY VERIFICATION COMPLETED USING TWO (2) STANDARD IDENTIFIERS: Name and Date of confirmed by patient verbally and Name and Date of confirmed by identification band. FALL SCREENING: Has the patient had 2 falls in the last year or 1 fall with injury or currently using an Ambulatory Assistive Device (Walker, Cane, Wheelchair, Crutches, etc.)? No PATIENT GENDER DATA: Male PATIENT RELEVANT IMPLANT DATA REVIEWED: Yes ALLERGIES: Reviewed and unchanged CONTRAST ALLERGY: NO. EXAM: MRI - CONTRAST TYPE: GROUP II PERIPHERAL IV DATA: Ambulatory: A peripheral IV was started in the Left with a Angio cath: 22 gauge. RADIOLOGY DEPARTMENT: MR; Exam(s) Completed: Body: Prostate SIGNATURE: RT Jigar PATIENT NAME: Lorenzo Reis DATE: July 08, 2020 TIME: 11:[address] [facility] CNOVon 06-17-2020 CNOV Office Visit (AKURFL ) CHATOLORENZO ([id number]) 1955 M Date Time Provider Department 06/17/20 11:30 AM CHRISTIAN MCGOVERN During your visit today, we recorded the following information about you: Weight Height 99.8 kg 1.753 m Christian Mcogvern DO, MBA 06/17/2020 12:03 PM Signed ?? [facility] LOCATION: [address] [place] [address] NEW CONSULT VISIT PATIENT INFO: Lorenzo Reis 64 year old PCP: Mark Ramirez MD Consultation requested by and my final recommendations will be communicated back to the requesting physician by way of shared medical record or letter via US mail. Chief Complaint: Elevated PSA HPI Here for evaluation of rising PSA Negative prostate biopsy by Dr. Nolan in 2017. Incomplete bladder emptying - recently started on Flomax. Not helping flow much. Still having nocturia. No hematuria. 1-Duration: 2019 2-Location: prostate 3-Severity: N/A 4-Quality: Not applicable 5-Context: N/A 6-Timing: N/A 7-Modifying factors: No treatment prior to referral 8-Associated signs AND symptoms: no additional symptoms PATHOLOGY: Prostate Biopsy 09/2016 FINAL DIAGNOSIS 1. Prostate, right base lateral, needle biopsy (A) - Benign prostatic tissue with focal acute and chronic inflammation. 2. Prostate, right mid lateral, needle biopsy (B) - Benign prostatic tissue. ? 3. Prostate, right apex lateral, needle biopsy (C) - Benign prostatic tissue. 4. Prostate, right base medial, needle biopsy (D) - Benign prostatic tissue. 5. Prostate, right mid medial, needle biopsy (E) - Benign prostatic tissue. 6. Prostate, right apex medial, needle biopsy (F) - Benign prostatic tissue with focal chronic inflammation. 7. Prostate, left base lateral, needle biopsy (G) - Benign prostatic tissue with focal chronic inflammation. 8. Prostate, left mid lateral, needle biopsy (H) - Benign prostatic tissue. 9. Prostate, left?apex lateral, needle biopsy (I) - Benign prostatic tissue. 10. Prostate, left base medial, needle biopsy (J) - Benign prostatic tissue. 11. Prostate, left mid medial, needle biopsy (K) - Benign prostatic tissue. 12. Prostate, left apex medial, needle biopsy (L) - Benign prostatic ? LAB: WBC (k/uL) Date Value 05/21/2020 6.50 RBC (m/uL) Date Value 05/21/2020 4.77 Hemoglobin (g/dL) Date Value 05/21/2020 14.1 Hematocrit (%) Date Value 05/21/2020 45.1 MCV (fL) Date Value 05/21/2020 94.5 MCH (pG) Date Value 05/21/2020 29.6 MCHC (g/dL) Date Value 05/21/2020 31.3 RDW-CV (%) Date Value 05/21/2020 12.3 Platelet Count (k/uL) Date Value 05/21/2020 223 MPV (fL) Date Value 05/21/2020 10.5 Neut% (%) Date Value 05/19/2020 73.8 Lymph% (%) Date Value 05/19/2020 17.5 Victoria% (%) Date Value 05/19/2020 7.9 Eosin% (%) Date Value 05/19/2020 0.0 Baso% (%) Date Value 05/19/2020 0.8 Abs Neut (ANC) (k/uL) Date Value 05/19/2020 5.30 Abs Victoria (k/uL) Date Value 05/19/2020 0.57 Abs Eosin (k/uL) Date Value 05/19/2020 <0.03 Abs Baso (k/uL) Date Value 05/19/2020 0.06 Creatinine Date Value Ref Range Status 05/21/2020 0.83 0.73 - 1.22 mg/dL Final 05/20/2020 0.78 0.73 - 1.22 mg/dL Final 05/19/2020 0.74 0.73 - 1.22 mg/dL Final 05/01/2020 0.77 0.73 - 1.22 mg/dL Final PSA (ng/mL) Date Value 05/01/2020 8.10 04/27/2019 6.57 04/27/2018 6.35 04/27/2017 6.15 PSA Screening (ng/mL) Date Value 05/21/2020 8.79 URINE POC GLUCOSE UA (POCT) Negative 06/17/2020 BILIRUBIN UA (POCT) Negative 06/17/2020 KETONE UA (POCT) Negative 06/17/2020 SPECIFIC GRAVITY UA (POCT) 1.010 06/17/2020 HEMOGLOBIN/BLOOD UA (POCT) Small 06/17/2020 PH UA (POCT) 5.5 06/17/2020 PROTEIN UA (POCT) Negative 06/17/2020 UROBILINOGEN UA (POCT) 0.2 06/17/2020 NITRITE UA (POCT) Negative 06/17/2020 LEUKOCYTES UA (POCT) Negative 06/17/2020 COLOR UA (POCT) Yellow 06/17/2020 CLARITY UA (POCT) Clear 06/17/2020 IMAGING: None No imaging to review. ALLERGIES: ALLERGIES Allergen Reactions - Bees Swelling MEDICATIONS: levothyroxine (SYNTHROID) 175 mcg tablet Take 1 tablet by mouth once daily. atorvastatin (LIPITOR) 20 mg tablet Take 1 tablet by mouth once daily. tamsulosin ER (FLOMAX) 0.4 mg Take 1 capsule by mouth daily at bedtime. apixaban (ELIQUIS) 5 mg tab(s) Take 1 tablet by mouth twice daily. Take 2 tablets by mouth twice a day X 7 days and then take 1 tablet by mouth twice a day. varenicline (CHANTIX STARTING MONTH BOX) 0.5 mg (11)- 1 mg (42) tablet Take 1 tablet (0.5 mg) by mouth once daily for 3 days, then 1 tablet (0.5 mg) twice daily for 4 days, then one tablet (1 mg) twice daily. Does the patient take any herbal medications?: No Medication list reviewed and reconciled with patient: Yes HISTORIES PAST MEDICAL HISTORY Diagnosis Date - Benign neoplasm of rectum and anal canal - PMH - PAST MEDICAL HISTORY OF old hx of stomach ulceration - Pure hypercholesterolemia - Snoring - Tobacco use - Unspecified hypothyroidism PAST SURGICAL HISTORY Procedure Laterality Date - COLONOS W/REM POLYP SNARE 10/21/2006 Large polyp at 50cm, 3 small sessile polyps in low rectosigmoid - COLONOS W/REM POLYP SNARE 06/25/11 polyp in rectum - COLONOSCOP W/ OR W/O [facility] SPEC 06/16/2009 Colonoscopy - COLONOSCOP W/ OR W/O [facility] SPEC 08/05/2016 Colonoscopy - COLONOSCOP W/ OR W/O [facility] SPEC 02/15/2018 multiple adenomatous polyps, repeat in 3 years - DIAGNOSIS/HISTORY left 5th finger - PAST SURGICAL HISTORY OF right shoulder Dislocated collar bone - REPAIR UMBILICAL MARCIAL,5+Y/O,REDUC with mesh - REPAIR/GRAFT ACHILLES TENDON 2018 FAMILY HISTORY Problem Relation Age of Onset - Alzheimer's Disease Mother - Coronary Artery Disease Father [place] - Prostate Cancer Father Negative family history: No SOCIAL HISTORY Social History Tobacco Use - Smoking status: Current Every Day Smoker Packs/day: 1.00 Years: 40.00 Pack years: 40.00 Types: Cigarettes Start date: 09/15/2018 - Smokeless tobacco: Never Used Substance Use Topics - Alcohol use: Yes Comment: 12 pack beer weekly- weekends - Drug use: No Smoking Status Reviewed: Yes REVIEW OF SYSTEMS: GENERAL: No fever, chills, weight loss, or fatigue. HEAD AND NECK: No blurred vision or Sjogren's syndrome CARDIOVASCULAR: NO CHEST PAIN, PALPITATIONS, ANKLE EDEMA RESPIRATORY: No chronic cough, wheezing, dyspnea, hemoptysis. MUSCULOSKELETAL: NO CHRONIC BACK PAIN, ARTHRITIS, CHRONIC NECK PAIN SKIN: NO VARICOSE VEINS, RASH, ABNORMAL ITCHING BLOOD/LYMPHATIC: No easy bleeding, easy bruising, transfusion Hx NEUROLOGICAL: NO HEADACHES, NUMBNESS, SEIZURES, STROKE PSYCHIATRIC: No depression or inordinate anxiety The remainder of the ROS was negative. PHYSICAL EXAMINATION Ht 175.3 cm (5' 9) Wt 99.8 kg (220 lb) BMI 32.49 kg/m? General appearance: Well appearing, alert, in no acute distress and well-hydrated, well nourished Skin: Skin color, texture, turgor normal, no suspicious rashes or lesions Head: Normocephalic, no masses, lesions, tenderness or abnormalities Neck: Supple, no adenopathy; thyroid symmetric, normal size, no bruits Lungs: Clear to auscultation no wheezing or rhonchi Heart: RRR without murmur, gallop, or rubs. No ectopy Abdomen: Normal abdominal exam, Abdomen soft, non-tender. Bowel sounds normal. No masses, organomegaly Extremities: Extremities normal. No deformities, edema, or skin discoloration. Good capillary refill. Genitourinary: Exam NOT Indicated PVR: NA IMPRESSION/PLAN: Elevated PSA, 8.10 S/P negative biopsy in 2017. Needs prostate MRI. May mandi cystoscopy for worsening LUTS. I spent 45 minutes in the visit, with more than 50% of the total [id number]-jh-[id number] time of the visit in counseling / coordination of care. Christian Mcgovern DO MBA Letter to: Mark Ramirez MD Referring Provider: SELF [[id number]] Allergies As of Date: 06/17/2020 Noted Allergy Reaction BEES 10/14/2005 7 - Swelling Date Reviewed: 06/17/2020 Reviewed by: Christian Mcgovern - Fully Assessed Reason for Visit: Elevated PSA [3906] Primary Visit Diagnosis:Elevated prostate specific antigen (PSA) [R97.20] Other Visit Diagnosis:BPH with obstruction/lower urinary tract symptoms [N40.1, N13.8] Order(s):UA DIP, URINE (POC) [2696408] Order #: [id number]. #:[id number] MRI PROSTATE WO/W IVCON [[id number]] Order #: [id number] FUTURE iv contrast (will be provided with radiology test)MRI Prostate Inject, intravenously, once for 1 dose. No IV access, insert saline lock prior to the beginning of sedation, infusion, injection of imaging exam. Discontinue saline lock post exam. If Pt. has a central line or IVAD, may access for administration according to line specific nursing protocol. Once exam is complete flush line and de-access according to line specific nursing protocol in the MR contrast administration guidelines link.Disp: 1 EachRfl: 0 CREATININE BLD [SQCRET] Order #: [id number] FUTURE Prescriptions as of 06/17/2020 Sig: LEVOTHYROXINE 175 MCG TABLET Take 1 tablet by mouth once d* ATORVASTATIN 20 MG TABLET Take 1 tablet by mouth once d* TAMSULOSIN 0.4 MG CAPSULE Take 1 capsule by mouth daily* APIXABAN 5 MG TABLET Take 1 tablet by mouth twice * IV CONTRAST (RADIOLOGY PROCED* MRI Prostate Inject, intraven* CHANTIX STARTING MONTH BOX 0.* Take 1 tablet (0.5 mg) by laurita* Patient not taking: Reported on 06/17/2020 Problem List As Of Date 06/17/2020 Noted Resolved Pure hypercholesterolemia [E78.00] 04/26/2011 Hypothyroidism [E03.9] 10/14/2005 Mixed hyperlipidemia [E78.2] 10/14/2005 Benign neoplasm of colon [D12.6] 10/21/2006 12/20/2014 Ingrowing nail [L60.0] 06/09/2007 12/20/2014 UMBILICAL HERNIA [K42.9] 02/26/2009 Shoulder arthritis [M19.019] 05/18/2011 Unspecified gastritis and gastroduodenitis with*06/25/2011 12/20/2014 Benign neoplasm of rectum and anal canal [D12.8*06/25/2011 12/20/2014 Family history of prostate cancer [Z80.42] 10/16/2013 Elevated PSA [R97.20] 06/11/2014 BPH (benign prostatic hyperplasia) [N40.0] 06/11/2014 Frequency of urination [R35.0] 06/11/2014 12/20/2014 Acquired hypothyroidism [E03.9] 01/16/2016 Colon cancer screening [Z12.11] 08/05/2016 08/05/2016 Benign non-nodular prostatic hyperplasia [N40.0]08/16/2016 Chronic prostatitis [N41.1] 08/16/2016 Tendonitis, Achilles, right [M76.61] 05/26/2018 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 Hypokalemia [E87.6] 05/19/2020 Flu-like symptoms [R68.89] 05/19/2020 Lightheadedness [R42] 05/19/2020 Bilateral pulmonary embolism (HCC) [I26.99] 05/19/2020 Malnutrition of mild degree (HCC) [E44.1] 05/20/2020 Obesity, Class I, BMI 30-34.9 [E66.9] 05/20/2020 Pulmonary nodules [R91.8] 05/20/2020 Multiple lacunar infarcts (HCC) [I63.81] 05/21/2020 Prescriptions ordered this encounter Disp Refills Start End IV CONTRAST (RADIOLOGY PROCEDURE) 1 Ea* 0 06/17/2020 06/18/2020 Class: In Office Sig: MRI Prostate Inject, intravenously, once for 1 dose. No IV access, insert saline lock prior to the beginning of sedation, infusion, injection of imaging exam. Discontinue saline lock post exam. If Pt. has a central line or IVAD, may access for administration according to line specific nursing protocol. Once exam is complete flush line and de-access according to line specific nursing protocol in the MR contrast administration guidelines link. Follow-up and Disposition History Recorded Letter Text Encounter Status:Closed by CHRSITIAN MCGOVERN on 06/17/[address] [facility] PROGRESSon 06-17-2020 PROGRESS HNO ID: [id number] Author: Christian Mcgovern Service: ? Author Type: Physician Type: Progress Notes Filed: 06/17/2020 12:03 PM Note Text: ?? [facility] LOCATION: [address] [place] [address] NEW CONSULT VISIT PATIENT INFO: Lorenzo Reis 64 year old PCP: Mark Ramirez MD Consultation requested by and my final recommendations will be communicated back to the requesting physician by way of shared medical record or letter via US mail. Chief Complaint: Elevated PSA HPI Here for evaluation of rising PSA Negative prostate biopsy by Dr. Nolan in 2017. Incomplete bladder emptying - recently started on Flomax. Not helping flow much. Still having nocturia. No hematuria. 1-Duration: 2019 2-Location: prostate 3-Severity: N/A 4-Quality: Not applicable 5-Context: N/A 6-Timing: N/A 7-Modifying factors: No treatment prior to referral 8-Associated signs AND symptoms: no additional symptoms PATHOLOGY: Prostate Biopsy 09/2016 FINAL DIAGNOSIS 1. Prostate, right base lateral, needle biopsy (A) - Benign prostatic tissue with focal acute and chronic inflammation. 2. Prostate, right mid lateral, needle biopsy (B) - Benign prostatic tissue. ? 3. Prostate, right apex lateral, needle biopsy (C) - Benign prostatic tissue. 4. Prostate, right base medial, needle biopsy (D) - Benign prostatic tissue. 5. Prostate, right mid medial, needle biopsy (E) - Benign prostatic tissue. 6. Prostate, right apex medial, needle biopsy (F) - Benign prostatic tissue with focal chronic inflammation. 7. Prostate, left base lateral, needle biopsy (G) - Benign prostatic tissue with focal chronic inflammation. 8. Prostate, left mid lateral, needle biopsy (H) - Benign prostatic tissue. 9. Prostate, left?apex lateral, needle biopsy (I) - Benign prostatic tissue. 10. Prostate, left base medial, needle biopsy (J) - Benign prostatic tissue. 11. Prostate, left mid medial, needle biopsy (K) - Benign prostatic tissue. 12. Prostate, left apex medial, needle biopsy (L) - Benign prostatic ? LAB: WBC (k/uL) Date Value 05/21/2020 6.50 RBC (m/uL) Date Value 05/21/2020 4.77 Hemoglobin (g/dL) Date Value 05/21/2020 14.1 Hematocrit (%) Date Value 05/21/2020 45.1 MCV (fL) Date Value 05/21/2020 94.5 MCH (pG) Date Value 05/21/2020 29.6 MCHC (g/dL) Date Value 05/21/2020 31.3 RDW-CV (%) Date Value 05/21/2020 12.3 Platelet Count (k/uL) Date Value 05/21/2020 223 MPV (fL) Date Value 05/21/2020 10.5 Neut% (%) Date Value 05/19/2020 73.8 Lymph% (%) Date Value 05/19/2020 17.5 Victoria% (%) Date Value 05/19/2020 7.9 Eosin% (%) Date Value 05/19/2020 0.0 Baso% (%) Date Value 05/19/2020 0.8 Abs Neut (ANC) (k/uL) Date Value 05/19/2020 5.30 Abs Victoria (k/uL) Date Value 05/19/2020 0.57 Abs Eosin (k/uL) Date Value 05/19/2020 <0.03 Abs Baso (k/uL) Date Value 05/19/2020 0.06 Creatinine Date Value Ref Range Status 05/21/2020 0.83 0.73 - 1.22 mg/dL Final 05/20/2020 0.78 0.73 - 1.22 mg/dL Final 05/19/2020 0.74 0.73 - 1.22 mg/dL Final 05/01/2020 0.77 0.73 - 1.22 mg/dL Final PSA (ng/mL) Date Value 05/01/2020 8.10 04/27/2019 6.57 04/27/2018 6.35 04/27/2017 6.15 PSA Screening (ng/mL) Date Value 05/21/2020 8.79 URINE POC GLUCOSE UA (POCT) Negative 06/17/2020 BILIRUBIN UA (POCT) Negative 06/17/2020 KETONE UA (POCT) Negative 06/17/2020 SPECIFIC GRAVITY UA (POCT) 1.010 06/17/2020 HEMOGLOBIN/BLOOD UA (POCT) Small 06/17/2020 PH UA (POCT) 5.5 06/17/2020 PROTEIN UA (POCT) Negative 06/17/2020 UROBILINOGEN UA (POCT) 0.2 06/17/2020 NITRITE UA (POCT) Negative 06/17/2020 LEUKOCYTES UA (POCT) Negative 06/17/2020 COLOR UA (POCT) Yellow 06/17/2020 CLARITY UA (POCT) Clear 06/17/2020 IMAGING: None No imaging to review. ALLERGIES: ALLERGIES Allergen Reactions - Bees Swelling MEDICATIONS: levothyroxine (SYNTHROID) 175 mcg tablet Take 1 tablet by mouth once daily. atorvastatin (LIPITOR) 20 mg tablet Take 1 tablet by mouth once daily. tamsulosin ER (FLOMAX) 0.4 mg Take 1 capsule by mouth daily at bedtime. apixaban (ELIQUIS) 5 mg tab(s) Take 1 tablet by mouth twice daily. Take 2 tablets by mouth twice a day X 7 days and then take 1 tablet by mouth twice a day. varenicline (CHANTIX STARTING MONTH BOX) 0.5 mg (11)- 1 mg (42) tablet Take 1 tablet (0.5 mg) by mouth once daily for 3 days, then 1 tablet (0.5 mg) twice daily for 4 days, then one tablet (1 mg) twice daily. Does the patient take any herbal medications?: No Medication list reviewed and reconciled with patient: Yes HISTORIES PAST MEDICAL HISTORY Diagnosis Date - Benign neoplasm of rectum and anal canal - PMH - PAST MEDICAL HISTORY OF old hx of stomach ulceration - Pure hypercholesterolemia - Snoring - Tobacco use - Unspecified hypothyroidism PAST SURGICAL HISTORY Procedure Laterality Date - COLONOS W/REM POLYP SNARE 10/21/2006 Large polyp at 50cm, 3 small sessile polyps in low rectosigmoid - COLONOS W/REM POLYP SNARE 06/25/11 polyp in rectum - COLONOSCOP W/ OR W/O [facility] SPEC 06/16/2009 Colonoscopy - COLONOSCOP W/ OR W/O [facility] SPEC 08/05/2016 Colonoscopy - COLONOSCOP W/ OR W/O [facility] SPEC 02/15/2018 multiple adenomatous polyps, repeat in 3 years - DIAGNOSIS/HISTORY left 5th finger - PAST SURGICAL HISTORY OF right shoulder Dislocated collar bone - REPAIR UMBILICAL MARCIAL,5+Y/O,REDUC with mesh - REPAIR/GRAFT ACHILLES TENDON 2018 FAMILY HISTORY Problem Relation Age of Onset - Alzheimer's Disease Mother - Coronary Artery Disease Father [place] - Prostate Cancer Father Negative family history: No SOCIAL HISTORY Social History Tobacco Use - Smoking status: Current Every Day Smoker Packs/day: 1.00 Years: 40.00 Pack years: 40.00 Types: Cigarettes Start date: 09/15/2018 - Smokeless tobacco: Never Used Substance Use Topics - Alcohol use: Yes Comment: 12 pack beer weekly- weekends - Drug use: No Smoking Status Reviewed: Yes REVIEW OF SYSTEMS: GENERAL: No fever, chills, weight loss, or fatigue. HEAD AND NECK: No blurred vision or Sjogren's syndrome CARDIOVASCULAR: NO CHEST PAIN, PALPITATIONS, ANKLE EDEMA RESPIRATORY: No chronic cough, wheezing, dyspnea, hemoptysis. MUSCULOSKELETAL: NO CHRONIC BACK PAIN, ARTHRITIS, CHRONIC NECK PAIN SKIN: NO VARICOSE VEINS, RASH, ABNORMAL ITCHING BLOOD/LYMPHATIC: No easy bleeding, easy bruising, transfusion Hx NEUROLOGICAL: NO HEADACHES, NUMBNESS, SEIZURES, STROKE PSYCHIATRIC: No depression or inordinate anxiety The remainder of the ROS was negative. PHYSICAL EXAMINATION Ht 175.3 cm (5' 9) Wt 99.8 kg (220 lb) BMI 32.49 kg/m? General appearance: Well appearing, alert, in no acute distress and well-hydrated, well nourished Skin: Skin color, texture, turgor normal, no suspicious rashes or lesions Head: Normocephalic, no masses, lesions, tenderness or abnormalities Neck: Supple, no adenopathy; thyroid symmetric, normal size, no bruits Lungs: Clear to auscultation no wheezing or rhonchi Heart: RRR without murmur, gallop, or rubs. No ectopy Abdomen: Normal abdominal exam, Abdomen soft, non-tender. Bowel sounds normal. No masses, organomegaly Extremities: Extremities normal. No deformities, edema, or skin discoloration. Good capillary refill. Genitourinary: Exam NOT Indicated PVR: NA IMPRESSION/PLAN: Elevated PSA, 8.10 S/P negative biopsy in 2017. Needs prostate MRI. May mandi cystoscopy for worsening LUTS. I spent 45 minutes in the visit, with more than 50% of the total [id number]-lq-[id number] time of the visit in counseling / coordination of care. Christian Mcgovern DO QUINTEN Letter to: Mark Ramirez MD [facility] XR Shoulder - right 3 Viewso n 06-11-2020 IMPRESSION: Degenerative changes as discussed Ticketing Clerk: MAT Transcribe Date/Time: Jun 11 2020 3:01P Dictated by : FADI TRIANA DO This examination was interpreted and the report reviewed and electronically signed by: FADI TRIANA DO on Jun 11 2020 3:02PM [facility] DIVISION OF RADIOLOGY * * *Final Report* * * DATE OF EXAM: Jun 11 2020 2:25PM WOX [id number] - XR SHLDR >/=3V AP/KEIRA AP/OTHR RT / PROCEDURE REASON: multiple diagnoses * * * * Physician Interpretation * * * * RIGHT shoulder EXAM DATE/TIME: 06/11/2020 2:25 PM HISTORY: 64 years old Clinical information: Chronic right shoulder pain pt states prev. surg to right shoulder, pain for couple of years worse recently anterior area no inj TECHNIQUE: Images: XR SHLDR >/=3V AP/KEIRA AP/OTHR RT Comparison: None. RESULT: Findings: Severe narrowing of the AC joint with a large amount of spurring abutting the joint space from both bones. Marked spurring along the undersurface of the distal clavicle. Some irregularity of the greater tuberosity humerus noted. Bone density appears well-preserved. No fractures or dislocations are seen. DIVISION OF RADIOLOGY Provider, [facility] - 06/11/2020 * * *Final Report* * * DATE OF EXAM: Jun 11 2020 2:25PM WOX 5253 - XR SHLDR >/=3V AP/KEIRA AP/OTHR RT / PROCEDURE REASON: multiple diagnoses * * * * Physician Interpretation * * * * RIGHT shoulder EXAM DATE/TIME: 06/11/2020 2:25 PM HISTORY: 64 years old Clinical information: Chronic right shoulder pain pt states prev. surg to right shoulder, pain for couple of years worse recently anterior area no inj TECHNIQUE: Images: XR SHLDR >/=3V AP/KEIRA AP/OTHR RT Comparison: None. RESULT: Findings: Severe narrowing of the AC joint with a large amount of spurring abutting the joint space from both bones. Marked spurring along the undersurface of the distal clavicle. Some irregularity of the greater tuberosity humerus noted. Bone density appears well-preserved. No fractures or dislocations are seen. IMPRESSION IMPRESSION: Degenerative changes as discussed Ticketing Clerk: MAT Transcribe Date/Time: Jun 11 2020 3:01P Dictated by : FADI TRIANA DO This examination was interpreted and the report reviewed and electronically signed by: FADI TRIANA DO on Jun 11 2020 3:02PM EST [facility] Radiology Study observation (narrative) [facility] XR Shoulder - right 3 ViewsO rdered By: Ccf Provider on 06-11-2020 [facility] No Panel Information [facility] Vital Signs Date Time Vital Sign Value Performing Clinician Facility 12-18-2024 09:43-0400 Body mass index (BMI) [Ratio] 32.77 kg/m2 Keith Click GEOGRAPHY DEPARTMENT CHAIR.WATER PUMP INSTALLER Work Phone: [facility] 12-18-2024 09:43-0400 Body weight 95.25 kg Keith Click GEOGRAPHY DEPARTMENT CHAIR.WATER PUMP INSTALLER Work Phone: [facility] 12-18-2024 09:43-0400 Diastolic blood pressure 62 mm[Hg] Keith Click GEOGRAPHY DEPARTMENT CHAIR.WATER PUMP INSTALLER Work Phone: [facility] 12-18-2024 09:43-0400 Heart rate 55 /min Keith Click GEOGRAPHY DEPARTMENT CHAIR.WATER PUMP INSTALLER Work Phone: [facility] 12-18-2024 09:43-0400 Respiratory rate 16 /min Keith Click GEOGRAPHY DEPARTMENT CHAIR.WATER PUMP INSTALLER Work Phone: [facility] 12-18-2024 09:43-0400 SaO2% (BldA) [Mass fraction] 99 % Keith Click GEOGRAPHY DEPARTMENT CHAIR.WATER PUMP INSTALLER Work Phone: [facility] 12-18-2024 09:43-0400 Systolic blood pressure 104 mm[Hg] Keith Click GEOGRAPHY DEPARTMENT CHAIR.WATER PUMP INSTALLER Work Phone: [facility] 11-22-2024 08:15-0400 Diastolic blood pressure 84 mm[Hg] Mark Ramirez MD Work Phone: [facility] 11-22-2024 08:15-0400 Systolic blood pressure 130 mm[Hg] Mark Ramirez MD Work Phone: [facility] 11-22-2024 08:12-0400 Body mass index (BMI) [Ratio] 32.85 kg/m2 Mark Ramirez MD Work Phone: [facility] 11-22-2024 08:12-0400 Body weight 95.5 kg Mark Ramirez MD Work Phone: [facility] 11-22-2024 08:12-0400 Heart rate 60 /min Mark Ramirez MD Work Phone: [facility] 11-22-2024 08:12-0400 Respiratory rate 16 /min Mark Ramirez MD Work Phone: [facility] 09-17-2024 07:51-0500 Body mass index (BMI) [Ratio] 31.99 kg/m2 Twila Glaser MD Work Phone: [facility] 09-17-2024 07:51-0500 Body weight 92.99 kg Twial Glaser MD Work Phone: [facility] 09-17-2024 07:51-0500 Diastolic blood pressure 76 mm[Hg] Twila Glaser MD Work Phone: [facility] 09-17-2024 07:51-0500 Heart rate 65 /min Twila Glaser MD Work Phone: [facility] 09-17-2024 07:51-0500 Respiratory rate 18 /min Twila Glaser MD Work Phone: [facility] 09-17-2024 07:51-0500 SaO2% (BldA) [Mass fraction] 91 % Twila Glaser MD Work Phone: [facility] 09-17-2024 07:51-0500 Systolic blood pressure 128 mm[Hg] Twila Glaser MD Work Phone: [facility] 08-21-2024 09:06-0500 Body height 170.5 cm Pulm Wstr Work Phone: [facility] 08-21-2024 09:06-0500 Body mass index (BMI) [Ratio] 31.99 kg/m2 Pulm Wstr Work Phone: [facility] 08-21-2024 09:06-0500 Body weight 92.99 kg Pulm Wstr Work Phone: [facility] 08-21-2024 09:06-0500 Heart rate 64 /min Pulm Wstr Work Phone: [facility] 08-21-2024 09:06-0500 Respiratory rate 14 /min Pulm Wstr Work Phone: [facility] 08-21-2024 09:06-0500 SaO2% (BldA) [Mass fraction] 98 % Pulm Wstr Work Phone: [facility] 08-13-2024 08:41-0500 Body mass index (BMI) [Ratio] 29.72 kg/m2 Madina Olive Hill GEOGRAPHY DEPARTMENT CHAIR.WATER PUMP INSTALLER Work Phone: [facility] 08-13-2024 08:41-0500 Body weight 91.3 kg Madina Olive Hill GEOGRAPHY DEPARTMENT CHAIR.WATER PUMP INSTALLER Work Phone: [facility] 08-13-2024 08:41-0500 Diastolic blood pressure 78 mm[Hg] Madina [place] Hill GEOGRAPHY DEPARTMENT CHAIR.WATER PUMP INSTALLER Work Phone: [facility] 08-13-2024 08:41-0500 Heart rate 89 /min Madina [place] Hill GEOGRAPHY DEPARTMENT CHAIR.WATER PUMP INSTALLER Work Phone: [facility] 08-13-2024 08:41-0500 Respiratory rate 20 /min Madina [place] Hill GEOGRAPHY DEPARTMENT CHAIR.WATER PUMP INSTALLER Work Phone: [facility] 08-13-2024 08:41-0500 SaO2% (BldA) [Mass fraction] 62 % Madina [place] GEOGRAPHY DEPARTMENT CHAIR.WATER PUMP INSTALLER Work Phone: [facility] 08-13-2024 08:41-0500 Systolic blood pressure 114 mm[Hg] Madina [place] Hill GEOGRAPHY DEPARTMENT CHAIR.WATER PUMP INSTALLER Work Phone: [facility] 06-28-2024 08:58-0500 Diastolic blood pressure 80 mm[Hg] Judson Alves MD Work Phone: [facility] 06-28-2024 08:58-0500 Heart rate 54 /min Judson Alves MD Work Phone: [facility] 06-28-2024 08:58-0500 Respiratory rate 16 /min Judson Alves MD Work Phone: [facility] 06-28-2024 08:58-0500 SaO2% (BldA) [Mass fraction] 93 % Judson Alves MD Work Phone: [facility] 06-28-2024 08:58-0500 Systolic blood pressure 122 mm[Hg] Judson Alves MD Work Phone: [facility] 06-28-2024 07:36-0500 Body mass index (BMI) [Ratio] 29.69 kg/m2 Judson Alves MD Work Phone: [facility] 06-28-2024 07:36-0500 Body temperature 97.2 [degF] Judson Alves MD Work Phone: [facility] 06-28-2024 07:36-0500 Body weight 91.2 kg Judson Alves MD Work Phone: [facility] 05-25-2024 08:06-0500 Body mass index (BMI) [Ratio] 29.76 kg/m2 Mark Ramirez MD Work Phone: [facility] 05-25-2024 08:06-0500 Body weight 91.4 kg Mark Ramirez MD Work Phone: [facility] 05-25-2024 08:06-0500 Diastolic blood pressure 78 mm[Hg] Mark Ramirez MD Work Phone: [facility] 05-25-2024 08:06-0500 Heart rate 58 /min Mark Ramirez MD Work Phone: [facility] 05-25-2024 08:06-0500 Respiratory rate 16 /min Mark Ramirez MD Work Phone: [facility] 05-25-2024 08:06-0500 Systolic blood pressure 126 mm[Hg] Mark Ramirez MD Work Phone: [facility] 05-16-2024 13:00-0400 Body height 175.3 cm Esha Hawthorne MD Work Phone: [facility] 05-16-2024 13:00-0400 Body mass index (BMI) [Ratio] 29.95 kg/m2 Esha Hawthorne MD Work Phone: [facility] 05-16-2024 13:00-0400 Body weight 92 kg Esha Hawthorne MD Work Phone: [facility] 05-16-2024 13:00-0400 Diastolic blood pressure 64 mm[Hg] Esha Hawthorne MD Work Phone: [facility] 05-16-2024 13:00-0400 Heart rate 50 /min Esha Hawthorne MD Work Phone: [facility] 05-16-2024 13:00-0400 SaO2% (BldA) [Mass fraction] 97 % Esha Hawthorne MD Work Phone: [facility] 05-16-2024 13:00-0400 Systolic blood pressure 118 mm[Hg] Esha Hawthorne MD Work Phone: [facility] 12-26-2023 13:27-0400 Body height 175.3 cm Sima Isaias GEOGRAPHY DEPARTMENT CHAIR.WATER PUMP INSTALLER Work Phone: [facility] 12-26-2023 13:27-0400 Body mass index (BMI) [Ratio] 30.13 kg/m2 Sima Isaias GEOGRAPHY DEPARTMENT CHAIR.WATER PUMP INSTALLER Work Phone: [facility] 12-26-2023 13:27-0400 Body temperature 98.01 [degF] Sima Isaias GEOGRAPHY DEPARTMENT CHAIR.WATER PUMP INSTALLER Work Phone: [facility] 12-26-2023 13:27-0400 Body weight 92.53 kg Sima Isaias GEOGRAPHY DEPARTMENT CHAIR.WATER PUMP INSTALLER Work Phone: [facility] 12-26-2023 13:27-0400 Diastolic blood pressure 86 mm[Hg] Sima Isaias GEOGRAPHY DEPARTMENT CHAIR.WATER PUMP INSTALLER Work Phone: [facility] 12-26-2023 13:27-0400 Heart rate 72 /min Sima Isaias GEOGRAPHY DEPARTMENT CHAIR.WATER PUMP INSTALLER Work Phone: [facility] 12-26-2023 13:27-0400 Respiratory rate 20 /min Sima Isaias GEOGRAPHY DEPARTMENT CHAIR.WATER PUMP INSTALLER Work Phone: [facility] 12-26-2023 13:27-0400 SaO2% (BldA) [Mass fraction] 96 % Sima Mays GEOGRAPHY DEPARTMENT CHAIR.WATER PUMP INSTALLER Work Phone: [facility] 12-26-2023 13:27-0400 Systolic blood pressure 148 mm[Hg] Sima Mays GEOGRAPHY DEPARTMENT CHAIR.WATER PUMP INSTALLER Work Phone: [facility] 11-24-2023 08:54-0400 Body mass index (BMI) [Ratio] 30.58 kg/m2 Mark Ramirez MD Work Phone: [facility] 11-24-2023 08:54-0400 Body weight 93.94 kg Mark Ramirez MD Work Phone: [facility] 11-24-2023 08:54-0400 Diastolic blood pressure 74 mm[Hg] Mark Ramirez MD Work Phone: [facility] 11-24-2023 08:54-0400 Heart rate 78 /min Mark Ramirez MD Work Phone: [facility] 11-24-2023 08:54-0400 Respiratory rate 16 /min Mark Ramriez MD Work Phone: [facility] 11-24-2023 08:54-0400 Systolic blood pressure 124 mm[Hg] Mark Ramirez MD Work Phone: [facility] 05-13-2023 08:00-0400 Body weight 89.04 kg Mark Ramirez MD Work Phone: [facility] 05-13-2023 08:00-0400 Diastolic blood pressure 74 mm[Hg] Mark Ramirez MD Work Phone: [facility] 05-13-2023 08:00-0400 Heart rate 74 /min Mark Ramirez MD Work Phone: [facility] 05-13-2023 08:00-0400 Respiratory rate 16 /min Mark Ramirez MD Work Phone: [facility] 05-13-2023 08:00-0400 Systolic blood pressure 120 mm[Hg] Mark Ramirez MD Work Phone: [facility] 11-30-2022 08:04-0400 Body weight 93.44 kg Madina Majano WATER PUMP INSTALLER Work Phone: [facility] 11-12-2022 08:37-0400 Body weight 93.76 kg Mark Ramirez MD Work Phone: [facility] 11-12-2022 08:37-0400 Diastolic blood pressure 74 mm[Hg] Mark Ramirez MD Work Phone: [facility] 11-12-2022 08:37-0400 Heart rate 78 /min Mark Ramirez MD Work Phone: [facility] 11-12-2022 08:37-0400 Respiratory rate 16 /min Mark Ramirez MD Work Phone: [facility] 11-12-2022 08:37-0400 Systolic blood pressure 120 mm[Hg] Mark Ramirez MD Work Phone: [facility] 07-02-2022 13:53-0500 Body height 175.3 cm Yang Altamirano MD Work Phone: [facility] 07-02-2022 13:53-0500 Body weight 87.09 kg Yang Altamirano MD Work Phone: [facility] 06-07-2022 08:05-0500 Body height 175.3 cm Pacc 1 Work Phone: [facility] 06-07-2022 08:05-0500 Body temperature 98.2 [degF] Pacc 1 Work Phone: [facility] 06-07-2022 08:05-0500 Body weight 87.09 kg Pacc 1 Work Phone: [facility] 06-07-2022 08:05-0500 Diastolic blood pressure 68 mm[Hg] Pacc 1 Work Phone: [facility] 06-07-2022 08:05-0500 Heart rate 57 /min Pacc 1 Work Phone: [facility] 06-07-2022 08:05-0500 Respiratory rate 16 /min Pacc 1 Work Phone: [facility] 06-07-2022 08:05-0500 SaO2% (BldA) [Mass fraction] 94 % Pacc 1 Work Phone: [facility] 06-07-2022 08:05-0500 Systolic blood pressure 112 mm[Hg] Pacc 1 Work Phone: [facility] 05-14-2022 09:05-0400 Body weight 88.45 kg Mark Ramirez MD Work Phone: [facility] 05-14-2022 09:05-0400 Diastolic blood pressure 70 mm[Hg] Mark Ramirez MD Work Phone: [facility] 05-14-2022 09:05-0400 Heart rate 74 /min Mark Ramirez MD Work Phone: [facility] 05-14-2022 09:05-0400 Respiratory rate 16 /min Mark Ramirez MD Work Phone: [facility] 05-14-2022 09:05-0400 Systolic blood pressure 118 mm[Hg] Mark Ramirez MD Work Phone: [facility] 04-02-2022 07:41-0400 Body height 175.3 cm Yang Altamirano MD Work Phone: [facility] 04-02-2022 07:41-0400 Body weight 91.63 kg Yang Altamirano MD Work Phone: [facility] 01-13-2022 13:46-0400 Body weight 91.63 kg Card 2 Work Phone: [facility] 01-13-2022 13:46-0400 Diastolic blood pressure 72 mm[Hg] Card 2 Work Phone: [facility] 01-13-2022 13:46-0400 Heart rate 61 /min Card 2 Work Phone: [facility] 01-13-2022 13:46-0400 Systolic blood pressure 128 mm[Hg] Card 2 Work Phone: [facility] 12-07-2021 08:01-0400 Body weight 94.35 kg Card 2 Work Phone: [facility] 12-07-2021 08:01-0400 Diastolic blood pressure 68 mm[Hg] Card 2 Work Phone: [facility] 12-07-2021 08:01-0400 Heart rate 60 /min Card 2 Work Phone: [facility] 12-07-2021 08:01-0400 Systolic blood pressure 122 mm[Hg] Card 2 Work Phone: [facility] 11-10-2021 09:26-0400 Body weight 94.98 kg Mark Ramirez MD Work Phone: [facility] 11-10-2021 09:26-0400 Diastolic blood pressure 74 mm[Hg] Mark Ramirez MD Work Phone: [facility] 11-10-2021 09:26-0400 Heart rate 78 /min Mark Ramirez MD Work Phone: [facility] 11-10-2021 09:26-0400 Respiratory rate 16 /min Mark Ramirez MD Work Phone: [facility] 11-10-2021 09:26-0400 Systolic blood pressure 120 mm[Hg] Mark Raimrez MD Work Phone: [facility] 11-02-2021 18:08-0400 Body temperature 98.5 [degF] [facility] Work Phone: 11-02-2021 18:08-0400 Diastolic blood pressure 80 mm[Hg] [facility] Work Phone: 11-02-2021 18:08-0400 Heart rate 60 /min [facility] Work Phone: 11-02-2021 18:08-0400 Respiratory rate 18 /min [facility] Work Phone: 11-02-2021 18:08-0400 SaO2% (BldA) [Mass fraction] 93 % [facility] Work Phone: 11-02-2021 18:08-0400 Systolic blood pressure 114 mm[Hg] [facility] Work Phone: 11-02-2021 16:01-0400 Body height 175.26 cm [facility] Work Phone: 11-02-2021 16:01-0400 Body mass index (BMI) [Ratio] 30.9 kg/m2 [facility] Work Phone: 11-02-2021 16:01-0400 Body weight 95 kg [facility] Work Phone: Encounters Encounter Date Encounter Type Care Provider Facility Start: 12-31-2024 End: 12-31-2024 ambulatory Twila Glaser MD Work Phone: Pulmonary Medicine Comment on above: Results Start: 12-31-2024 End: 12-31-2024 Telephone encounter Mark Ramirez MD Work Phone: [facility] [place] Comment on above: Forms ([facility], request for wrist hand orthosis supplies) Start: 12-18-2024 End: 12-18-2024 Office outpatient visit 10 minutes Keith Galo APRN.CNP Work Phone: Pulmonary Medicine Comment on above: Stage 3 severe COPD by GOLD classification (HCC) (Primary Dx); Cigarette smoker Start: 12-18-2024 End: 12-18-2024 ambulatory KEITH GALO Facility:[facility] Start: 11-22-2024 End: 11-22-2024 Office outpatient visit 25 minutes Mark Ramirez MD Work Phone: [facility] [place] Comment on above: Acquired hypothyroid ism (Primary Dx); Elevated glucose; Essential hypertension, benign; Mixed hyperlipidemia; 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; Smoker; Pulmonary nodules; Elevated PSA; Benign prostatic hyperplasia without lower urinary tract symptoms; Screening for depression; Encounter for screening examination for other mental health and behavioral disorders Start: 11-22-2024 End: 11-22-2024 ambulatory MARK RAMIREZ Facility:[facility] Start: 11-21-2024 End: 11-21-2024 ambulatory MARK MONTERROSOLUDMILA Facility:[facility] Start: 11-12-2024 End: 11-13-2024 Refill Twila Glaser MD Work Phone: Pulmonary Medicine Comment on above: Refill Request Start: 11-09-2024 End: 01-09-2025 Follow-up encounter Kassy Curtis PA-C Work Phone: [facility] Start: 11-09-2024 ambulatory TWILA GLASER Fac ility:[facility] Start: 10-29-2024 End: 10-29-2024 Telephone encounter Esha Hawthorne MD Work Phone: Cardiology Comment on above: Forms (Dr Melissa Gongora Medical Clearance for Dental Treatment) Start: 09-24-2024 End: 09-24-2024 Telephone encounter Twila Glaser MD Work Phone: Pulmonary Medicine Comment on above: Results (Night oxyge n testing) Start: 09-17-2024 End: 09-17-2024 ambulatory TWILA GLASER Facility:[facility] Start: 09-17-2024 End: 09-17-2024 Patient encounter procedure Twila Glaser MD Work Phone: Pulmonary Medicine Comment on above: Stage 3 severe COPD by GOLD classification (HCC) (Primary Dx); Cigarette smoker; Oropharyngeal dysphagia Start: 08-23-2024 End: 08-31-2024 Telephone encounter Madina Majano APRN.WATER PUMP INSTALLER Work Phone: Pulmonary Medicine Comment on above: Results Start: 08-21-2024 End: 08-21-2024 ambulatory Pulm Lab [facility] Work Phone: PULM LAB [facility] Comment on above: Spirometry Start: 08-21-2024 End: 08-21-2024 Patient encounter procedure Pulm [facility] Work Phone: PULM LAB [facility] Start: 08-13-2024 End: 08-13-2024 Patient encounter procedure Madina Majano APRN.WATER PUMP INSTALLER Work Phone: Pulmonary Medicine Comment on above: Multiple lung nodule s (Primary Dx); Encounter for screening for lung cancer; Smoker; Shortness of breath Start: 08-13-2024 End: 08-13-2024 ambulatory MADINA MAJANO Facility:[facility] Start: 08-13-2024 End: 08-13-2024 Subsequent hospital visit by physician Su [facility] (I-Stat) Work Phone: Cat Scan Comment on above: Encounter for screen ing for lung cancer [Z12.2] Start: 07-05-2024 End: 07-05-2024 ambulatory SIMA MAYS Facility:[facility] Start: 07-05-2024 End: 07-05-2024 Patient encounter procedure Sima Mays GEOGRAPHY DEPARTMENT CHAIR.WATER PUMP INSTALLER Work Phone: General Surgery Comment on above: Hyperplastic polyp o f ascending colon (Primary Dx) Start: 07-04-2024 End: 07-04-2024 ambulatory Mark Ramirez Facility:[facility] Start: 07-02-2024 End: 07-02-2024 ambulatory Luz Mac RN Administrative Assistant Management Comment on above: Community Monitoring Outreach (CDM Telephonic Outreach) Start: 06-29-2024 End: 07-02-2024 ambulatory Luz Mac RN Administrative Assistant Management Comment on above: Opened In Error Start: 06-28-2024 End: 06-28-2024 ambulatory JUDSON ALVES Facility:[facility] Start: 06-28-2024 End: 06-28-2024 Subsequent hospital visit by physician Judson Alves MD Work Phone: Ambulatory Surgery Comment on above: History of colonic p olyps [Z86.0100] Start: 06-27-2024 End: 06-27-2024 ambulatory Luz Mac RN Administrative Assistant Management Comment on above: Community Monitoring Outreach (CDM Telephonic Outreach) Start: 06-20-2024 End: 06-22-2024 ambulatory Luz Mac RN Administrative Assistant Management Comment on above: Opened In Error Colonoscopy Start: 06-18-2024 End: 06-18-2024 Orders Only Madina Majano APRN.WATER PUMP INSTALLER Work Phone: Pulmonary Medicine Comment on above: Encounter for screen ing for lung cancer (Primary Dx); Tobacco use current Start: 06-11-2024 End: 10-15-2024 Telephone encounter Sima Mays APRN.WATER PUMP INSTALLER Work Phone: General Surgery Comment on above: Cardiac Clearance Start: 06-05-2024 End: 06-05-2024 ambulatory UNKNOWN PROVIDER Facility:[facility] Start: 05-28-2024 End: 05-28-2024 Telephone encounter Keith Narayan RN [facility] [employer] Comment on above: Results (Lab work) Start: 05-26-2024 End: 05-26-2024 Telephone encounter Esha Hawthorne MD Work Phone: Cardiology Start: 05-25-2024 End: 05-25-2024 Patient encounter procedure Mark Ramirez MD Work Phone: [facility] Comment on above: Essential hypertensi on, benign (Primary Dx); Need for influenza vaccination; Need for vaccination; Acquired hypothyroidism; Mixed hyperlipidemia; Elevated PSA; Benign prostatic hyperplasia without lower urinary tract symptoms; Smoker; 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 Start: 05-25-2024 End: 05-25-2024 ambulatory MARK RAMIREZ Facility:[facility] Start: 05-24-2024 ambulatory ESHA HAWTHORNE Facil ity:[facility] Start: 05-24-2024 End: 05-24-2024 Subsequent hospital visit by physician [facility] Work Phone: Cardiology Lab Start: 05-24-2024 ambulatory MARK RAMIREZ Facil ity:[facility] Start: 05-24-2024 End: 05-24-2024 Subsequent hospital visit by physician [facility] Work Phone: Molecular Imaging Start: 05-24-2024 ambulatory MARK RAMIREZ Facil ity:[facility] Start: 05-24-2024 End: 05-24-2024 Subsequent hospital visit by physician [facility] Work Phone: Cardiology Lab Comment on above: Coronary artery dise ase due to lipid rich plaque [I25.10, I25.83] Start: 05-23-2024 End: 07-04-2024 Telephone encounter Moose Parisi RN Cardiology Lab Start: 05-16-2024 End: 05-16-2024 ambulatory ESHA HAWTHORNE Facility:[facility] Start: 05-16-2024 End: 05-16-2024 Patient encounter procedure Esha Hawthorne MD Work Phone: Cardiology Comment on above: Coronary artery dise ase due to lipid rich plaque (Primary Dx); Ascending aorta dilatation (HCC); SOB (shortness of breath) Start: 04-27-2024 End: 05-09-2024 Telephone encounter Judson Alves MD Work Phone: General Surgery Comment on above: Appointment Start: 04-26-2024 End: 04-26-2024 ambulatory Luz Mac RN Administrative Assistant Management Comment on above: Community Monitoring Outreach (CDM Telephonic Outreach) Start: 03-26-2024 End: 03-26-2024 ambulatory Luz Mac RN Administrative Assistant Management Comment on above: Community Monitoring Outreach (CDM Telephonic Outreach) Start: 03-21-2024 End: 03-21-2024 ambulatory Luz Mac RN Administrative Assistant Management Comment on above: Community Monitoring Outreach (CDM Telephonic Outreach) Start: 03-01-2024 ambulatory Luz Ha latory Care Management Comment on above: Community Monitoring Outreach (CDM Telephonic Outreach) Start: 01-24-2024 ambulatory Luz Ha latory Care Management Comment on above: Community Monitoring Outreach (CDM Telephonic Outreach) Start: 12-26-2023 End: 12-26-2023 Patient encounter procedure Sima Mays APRN.CNP Work Phone: General Surgery Comment on above: History of colonic p olyps (Primary Dx); Screening for colon cancer Refill Request Start: 12-26-2023 End: 05-22-2024 Telephone encounter Sima Mays APRN.CNP Work Phone: General Surgery Comment on above: Appointment Start: 12-21-2023 ambulatory Luz E Mac RN Ambu latory Care Management Comment on above: Community Monitoring Outreach (CDM Telephonic Outreach) Start: 11-25-2023 Telephone encounter Mark dimas MD Work Phone: [facility] Comment on above: Results Start: 11-24-2023 End: 11-24-2023 Patient encounter procedure Mark Ramirez MD Work Phone: [facility] Comment on above: Essential hypertensi on, benign (Primary Dx); Acquired hypothyroidism; Mixed hyperlipidemia; Smoker; Screening for colon cancer Start: 11-17-2023 ambulatory Cynthia card RN Work Phone: Administrative Assistant Management Comment on above: Community Monitoring Outreach (CDM) Refill Request Start: 11-16-2023 ambulatory Cynthia card RN Work Phone: Administrative Assistant Management Comment on above: Community Monitoring Outreach (CDM) Start: 10-03-2023 ambulatory Luz Mac RN Ambu latory Care Management Comment on above: Community Monitoring Outreach (CDM Telephonic Outreach) Start: 09-30-2023 ambulatory Luz E Estefania RN Ambu latory Care Management Comment on above: Opened In Error Start: 09-09-2023 ambulatory Luz E Estefania RN Ambu latory Care Management Comment on above: Community Monitoring Outreach (CDM Telephonic Outreach) Start: 09-08-2023 ambulatory Luz E Estefania RN Ambu latory Care Management Comment on above: Community Monitoring Outreach (CDM Telephonic Outreach) Start: 09-07-2023 ambulatory Luz E Estefania RN Ambu latory Care Management Comment on above: Community Monitoring Outreach (CDM Telephonic Outreach) Start: 06-10-2023 ambulatory Luz E Estefania RN Ambu latory Care Management Comment on above: Community Monitoring Outreach (CDM Telephonic Outreach) Refill Request Start: 05-13-2023 Telephone encounter Mark dimas MD Work Phone: [facility] Comment on above: Results Start: 05-13-2023 End: 05-13-2023 Patient encounter procedure Mark Ramirez MD Work Phone: Family Medicine Sy Comment on above: Essential hypertensi on, benign (Primary Dx); Need for influenza vaccination; Mixed hyperlipidemia; Pulmonary nodules; Smoker; Cough, unspecified type; Acquired hypothyroidism Start: 04-28-2023 ambulatory Luz Mac RN [facility] Management Comment on above: Community Monitoring Outreach (CDM Telephonic Outreach) Start: 02-11-2023 ambulatory Luz Mac RN [facility] Management Comment on above: Community Monitoring Outreach (CDM Telephonic Outreach) Start: 02-09-2023 ambulatory Luz Mac RN [facility] Management Comment on above: Community Monitoring Outreach (CDM Telephonic Outreach) Start: 11-30-2022 End: 11-30-2022 Subsequent hospital visit by physician [facility] 2 Work Phone: Radiology Comment on above: Screening for AAA (a bdominal aortic aneurysm) [Z13.6] Start: 11-30-2022 End: 11-30-2022 Patient encounter procedure Madina Majano GEOGRAPHY DEPARTMENT CHAIR.WATER PUMP INSTALLER Work Phone: Pulmonary Medicine Comment on above: Encounter for screen ing for lung cancer (Primary Dx); Tobacco use current; Multiple lung nodules Start: 11-16-2022 Telephone encounter Mark dimas MD Work Phone: [facility] Comment on above: Results Start: 11-12-2022 End: 11-12-2022 Subsequent hospital visit by physician [facility] Sy Work Phone: Radiology Comment on above: Neck pain [M54.2] Start: 11-12-2022 End: 11-12-2022 Patient encounter procedure Mark Ramirez MD Work Phone: Family [facility] Comment on above: Essential hypertensi on, benign (Primary Dx); Benign prostatic hyperplasia with urinary obstruction; Acquired hypothyroidism; Need for vaccination; Screening for AAA (abdominal aortic aneurysm); Mixed hyperlipidemia; Smoker; Neck pain Start: 10-28-2022 Refill Mark watkins MD Work Phone: Administrative Assistant Management Comment on above: Refill Request Refill Request; Refi ll Request Start: 10-26-2022 ambulatory Luz Ha latory Care Management Comment on above: Community Monitoring Outreach (CDM Telephonic Outreach) Opened In Error Start: 10-11-2022 End: 10-11-2022 Admission to same day surgery center Robert Soto PT Work Phone: [facility] Comment on above: S/P shoulder surgery (Primary Dx) Start: 10-11-2022 End: 10-11-2022 ambulatory Robert Soto PT Work Phone: [facility] Start: 09-26-2022 Refill Baileed Garcia Zelaya D Work Phone: Cardiology Comment on above: Refill Request; Refi ll Request Start: 09-17-2022 End: 09-17-2022 Patient encounter procedure Yang Altamirano MD Work Phone: Orthopedics Comment on above: 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) Start: 09-17-2022 End: 09-17-2022 Subsequent hospital visit by physician [facility] Chelsie Moreira Work Phone: Radiology Comment on above: Chronic right should er pain [M25.511, G89.29] Start: 09-06-2022 End: 09-06-2022 Admission to same day surgery center Robert Soto PT Work Phone: [facility] Comment on above: S/P shoulder surgery (Primary Dx) Start: 09-06-2022 End: 09-06-2022 ambulatory Robert Soto PT Work Phone: [facility] Start: 09-02-2022 ambulatory Luz Ha latamy Care Management Comment on above: Community Monitoring Outreach (CDM Telephonic Outreach) Start: 09-01-2022 Orders Only Yang Altamirano MD Work Phone: Orthopedics Comment on above: Chronic right should er pain (Primary Dx) Community Monitoring Outreach (CDM Telephonic Outreach) Start: 08-31-2022 End: 08-31-2022 Admission to same day surgery center Robert Soto PT Work Phone: [facility] Comment on above: S/P shoulder surgery (Primary Dx) Start: 08-31-2022 End: 08-31-2022 ambulatory Robert Soto PT Work Phone: [facility] Start: 08-23-2022 End: 08-23-2022 Admission to same day surgery center Deanna Emeli LENS CEMENTER Work Phone: [facility] Comment on above: S/P shoulder surgery (Primary Dx) Start: 08-23-2022 End: 08-23-2022 [facility] Work Phone: [facility] Start: 08-16-2022 End: 08-16-2022 Admission to same day surgery center Robert Soto PT Work Phone: [facility] Comment on above: S/P shoulder surgery (Primary Dx) Start: 08-16-2022 End: 08-16-2022 ambulatory Robert Soto PT Work Phone: [facility] Start: 08-10-2022 End: 08-10-2022 Admission to same day surgery center Robert Soto PT Work Phone: [facility] Comment on above: S/P shoulder surgery (Primary Dx) Start: 08-10-2022 End: 08-10-2022 ambulatory Robert Soto PT Work Phone: [facility] Start: 08-06-2022 End: 08-06-2022 Patient encounter procedure Yang Altamirano MD Work Phone: Orthopedics Comment on above: 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) Start: 08-06-2022 End: 08-06-2022 Subsequent hospital visit by physician [facility] Chelsie Moreira Work Phone: Radiology Comment on above: Chronic right 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 er pain [M25.511, G89.29] Start: 08-02-2022 End: 08-02-2022 Admission to same day surgery center Robert Soto PT Work Phone: [facility] Comment on above: S/P shoulder surgery (Primary Dx) Start: 08-02-2022 End: 08-02-2022 ambulatory Robert Soto PT Work Phone: [facility] Start: 07-30-2022 Orders Only Yang Altamirano MD Work Phone: Orthopedics Comment on above: Chronic right 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 er pain (Primary Dx) Start: 07-29-2022 ambulatory Luz Mac RN Ambu latory Care Management Comment on above: Community Monitoring Outreach (CDM Telephonic Outreach/) Start: 07-27-2022 End: 07-27-2022 Admission to same day surgery center Robert Soto PT Work Phone: [facility] Comment on above: S/P shoulder surgery (Primary Dx) Start: 07-27-2022 End: 07-27-2022 ambulatory Robert Soto PT Work Phone: [facility] Start: 07-21-2022 ambulatory Darlene Collins RN Work Phone: Administrative Assistant Management Comment on above: cdm (enrollment) Start: 07-15-2022 End: 07-15-2022 Admission to same day surgery center Robert Soto PT [facility] Comment on above: S/P shoulder surgery (Primary Dx) Start: 07-15-2022 End: 07-15-2022 ambulatory Robert Soto PT [facility] Start: 07-02-2022 End: 07-02-2022 Patient encounter procedure Yang Altamirano MD Work Phone: Orthopedics Comment on above: 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) Start: 07-02-2022 End: 07-02-2022 Subsequent hospital visit by physician [facility] Chelsie Moreira Work Phone: Radiology Comment on above: Chronic right 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 er pain [M25.511, G89.29] Start: 06-28-2022 Orders Only Yang Altamirano MD Work Phone: Orthopedics Comment on above: Chronic right should er pain (Primary Dx) Start: 06-07-2022 Telephone encounter Angelique Sharpe APRN.CNP Work Phone: Pre Anesthesia Comment on above: Preparations For Estefany alyson Appointment Start: 06-07-2022 End: 06-07-2022 Admission to establishment Pacc Sy 1 Work Phone: [facility] Start: 06-07-2022 End: 06-07-2022 ambulatory [facility] Work Phone: Pre Anesthesia Comment on above: Pre-operative examin ation (Primary Dx); 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; Essential hypertension, benign; Mixed hyperlipidemia; History of pulmonary embolus (PE); Acquired hypothyroidism; Benign prostatic hyperplasia without lower urinary tract symptoms; Pulmonary nodules; Smoker Start: 06-07-2022 End: 06-07-2022 [facility]proced[facility] done [facility] Work Phone: Pre Anesthesia Start: 05-21-2022 Orders Only Yang Altamirano MD Work Phone: Orthopaedics Comment on above: Traumatic complete t ear of right rotator cuff, subsequent encounter (Primary Dx); Acute pain of right shoulder Start: 05-14-2022 End: 05-14-2022 Patient encounter procedure Mark Ramirez MD Work Phone: [facility] Comment on above: Coronary artery dise ase involving minto coronary artery 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 (Primary Dx); Acquired hypothyroidism; Need for influenza vaccination; Mixed hyperlipidemia; Smoker; Viral URI Start: 05-01-2022 Refill Danna cleaning MD Work Phone: Cardiology Comment on above: Refill Request Start: 04-19-2022 Telephone encounter Danna Gomez MD Work Phone: Cardiology Comment on above: Patient Question (Me dication/dental work) Start: 04-02-2022 End: 04-02-2022 Patient encounter procedure Yang Altamirano MD Work Phone: Orthopedics Comment on above: Traumatic complete t ear of right rotator cuff, subsequent encounter (Primary Dx) Start: 03-23-2022 Telephone encounter Mark dimas MD Work Phone: [facility] Comment on above: Medication Question Start: 02-18-2022 End: 02-18-2022 Patient encounter procedure Florian Chavez MD Work Phone: Orthopaedics Comment on above: Traumatic complete t ear of right rotator cuff, subsequent encounter (Primary Dx); Other secondary osteoarthritis of right shoulder Start: 02-04-2022 End: 02-04-2022 Patient encounter procedure Florian Chavez MD Work Phone: Orthopaedics Comment on above: Traumatic complete t ear of right rotator cuff, subsequent encounter (Primary Dx); Other secondary osteoarthritis of right shoulder Start: 01-20-2022 End: 01-20-2022 Patient encounter procedure Card Pulm Rehab Phase 2 Work Phone: [facility] Comment on above: S/P coronary artery stent placement Start: 01-15-2022 End: 01-15-2022 Patient encounter procedure Card Pulm Rehab Phase 2 Work Phone: [facility] Comment on above: S/P coronary artery stent placement Start: 01-13-2022 End: 01-13-2022 Patient encounter procedure Card Pulm Rehab Phase 2 Work Phone: [facility] Comment on above: S/P coronary artery stent placement Start: 01-11-2022 End: 01-11-2022 Patient encounter procedure Card Pulm Rehab Phase 2 Work Phone: [facility] Comment on above: S/P coronary artery stent placement Start: 01-07-2022 End: 01-07-2022 Patient encounter procedure Florian Chavez MD Work Phone: Orthopaedics Comment on above: Acute pain of right shoulder (Primary Dx); Traumatic complete tear of right rotator cuff, initial encounter Start: 01-06-2022 End: 01-06-2022 Patient encounter procedure Card Pulm Rehab Phase 2 Work Phone: [facility] Comment on above: S/P coronary artery stent placement Start: 01-04-2022 End: 01-04-2022 Patient encounter procedure Card Pulm Rehab Phase 2 Work Phone: [facility] Comment on above: S/P coronary artery stent placement Start: 01-01-2022 End: 01-01-2022 Patient encounter procedure Card Pulm Rehab Phase 2 Work Phone: [facility] Comment on above: S/P coronary artery stent placement Start: 12-28-2021 End: 12-28-2021 Patient encounter procedure Card Pulm Rehab Phase 2 Work Phone: [facility] Comment on above: S/P coronary artery stent placement Start: 12-25-2021 End: 12-25-2021 Patient encounter procedure Card Pul Rehab Phase 2 Work Phone: [facility] Comment on above: S/P coronary artery stent placement Start: 12-23-2021 End: 12-23-2021 Patient encounter procedure Card Pul Rehab Phase 2 Work Phone: [facility] Comment on above: S/P coronary artery stent placement Start: 12-21-2021 End: 12-21-2021 Patient encounter procedure Card Pul Rehab Phase 2 Work Phone: [facility] Comment on above: S/P coronary artery stent placement Start: 12-18-2021 End: 12-18-2021 Patient encounter procedure Card Pulm Rehab Phase 2 Work Phone: [facility] Comment on above: S/P coronary artery stent placement Start: 12-11-2021 End: 12-11-2021 Patient encounter procedure Card Pulm Rehab Phase 2 Work Phone: [facility] Comment on above: S/P coronary artery stent placement Start: 12-09-2021 End: 12-09-2021 Patient encounter procedure Card Pulm Rehab Phase 2 Work Phone: [facility] Comment on above: S/P coronary artery stent placement Start: 12-07-2021 End: 12-07-2021 Patient encounter procedure Card Pulm Rehab Phase 2 Work Phone: [facility] Comment on above: S/P coronary artery stent placement Start: 12-04-2021 End: 12-04-2021 Patient encounter procedure Card Pulm Rehab Phase 2 Work Phone: [facility] Comment on above: S/P coronary artery stent placement Start: 12-02-2021 End: 12-02-2021 Patient encounter procedure Card Pulm Rehab Phase 2 Work Phone: [facility] Comment on above: S/P coronary artery stent placement Start: 11-30-2021 End: 11-30-2021 Patient encounter procedure Card Pulm Rehab Phase 2 Work Phone: [facility] Comment on above: S/P coronary artery stent placement Start: 11-27-2021 End: 11-27-2021 Patient encounter procedure Card Pulm Rehab Phase 2 Work Phone: [facility] Comment on above: S/P coronary artery stent placement Start: 11-25-2021 End: 11-25-2021 Patient encounter procedure Card Pulm Rehab Phase 2 Work Phone: [facility] Comment on above: S/P coronary artery stent placement Start: 11-20-2021 End: 11-20-2021 Patient encounter procedure Card Pulm Rehab Phase 2 Work Phone: [facility] Comment on above: S/P coronary artery stent placement Start: 11-18-2021 End: 11-18-2021 Patient encounter procedure Card Pulm Rehab Phase 2 Work Phone: [facility] Comment on above: S/P coronary artery stent placement Start: 11-16-2021 End: 11-16-2021 Patient encounter procedure Card Pul Rehab Phase 2 Work Phone: [facility] Comment on above: S/P coronary artery stent placement Start: 11-13-2021 End: 11-13-2021 Patient encounter procedure Card Pul Rehab Phase 2 Work Phone: [facility] Comment on above: S/P coronary artery stent placement Start: 11-11-2021 End: 11-11-2021 Patient encounter procedure Card Pul Rehab Phase 2 Work Phone: [facility] Comment on above: S/P coronary artery stent placement Start: 11-10-2021 End: 11-10-2021 Patient encounter procedure Mark Ramirez MD Work Phone: [facility] Comment on above: Acquired hypothyroid ism (Primary Dx); Mixed hyperlipidemia; 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; Pulmonary nodules; Smoker; Benign prostatic hyperplasia without lower urinary tract symptoms; Acute pain of right shoulder; Disorder of left ear lobe Start: 11-06-2021 End: 11-06-2021 Patient encounter procedure Card [facility] Re[facility] Phase 2 Work Phone: [facility] Comment on above: S/P coronary artery stent placement Start: 11-04-2021 End: 11-04-2021 Patient encounter procedure Card [facility] Re[facility] Phase 2 Work Phone: [facility] Comment on above: S/P coronary artery stent placement Start: 11-02-2021 End: 11-02-2021 Emergency department patient visit [facility] Start: 11-02-2021 End: 11-02-2021 Patient encounter procedure Card Pul Rehab Phase 2 Work Phone: [facility] Comment on above: S/P coronary artery stent placement Start: 10-21-2021 Refill Mark watkins MD Work Phone: [facility] Comment on above: Refill Request Start: 05-05-2021 End: 05-05-2021 Subsequent hospital visit by physician [facility] Work Phone: Radiology Comment on above: Cough [R05.9] Start: 08-18-2020 End: 08-18-2020 Subsequent hospital visit by physician [facility] Work Phone: Radiology Comment on above: Bacterial pneumonia [J15.9] Start: 07-29-2020 End: 07-29-2020 Subsequent hospital visit by physician [facility] Work Phone: Radiology Comment on above: Bacterial pneumonia [J15.9] Start: 06-11-2020 End: 06-11-2020 Subsequent hospital visit by physician [facility] Work Phone: Radiology Comment on above: Chronic right 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 er pain [M25.511, G89.29] Procedures Date Procedure Procedure Detail Performing Clinician Start: 11-22-2024 Adult depression screening assessment Mark Ramirez MD Work Phone: Start: 11-21-2024 Lipid 1996 panel - Serum or Plasma Mark Ramirez MD Work Phone: Start: 08-21-2024 Plethysmography lung volumes w/wo airway resist Madina Majano GEOGRAPHY DEPARTMENT CHAIR.WATER PUMP INSTALLER Work Phone: Start: 08-13-2024 CT LUNG SCREEN WO IVCON Madina Majano GEOGRAPHY DEPARTMENT CHAIR.WATER PUMP INSTALLER Work Phone: Start: 06-28-2024 Colonoscopy flx dx w/collj spec when pfrmd Sima Mays GEOGRAPHY DEPARTMENT CHAIR.WATER PUMP INSTALLER Work Phone: Start: 06-28-2024 Colonoscopy Judson Alves MD Work Phone: Start: 05-25-2024 PFIZER-BIONTECH COVID-19 VACCINE AGE 12+ YR (COMIRNATY) Mark Ramirez MD Work Phone: Start: 05-25-2024 Lipid 1996 panel - Serum or Plasma Esha Hawthorne MD Work Phone: Start: 05-24-2024 Myocardial spect multiple studies Esha Hawthorne MD Work Phone: Start: 05-24-2024 Echo tthrc r-t 2d w/wom-mode compl spec&colr d Esha Hawthorne MD Work Phone: Start: 05-16-2024 Ecg routine ecg w/least 12 lds i&r only [facility] Provider Start: 11-24-2023 Adult depression screening assessment Luz Mac RN Start: 11-24-2023 Lipid 1995 panel - Serum or Plasma Mark Ramirez MD Work Phone: Start: 05-13-2023 INFLUENZA VACCINE, PRSV FREE, AGE 65+ YR, HIGH DOSE, QUADRIVALENT (FLUZONE HIGH-DOSE) Mark Ramirez MD Work Phone: Start: 05-13-2023 Lipid 1995 panel - Serum or Plasma Mark Ramirez MD Work Phone: Start: 11-30-2022 Us abdominal aorta real time screen study aaa Mark Ramirez MD Work Phone: Start: 11-12-2022 Radex spine cervical 4 or 5 views Mark Ramirez MD Work Phone: Start: 11-08-2022 Lipid 1996 panel - Serum or Plasma Luz Mac RN Start: 09-17-2022 Radex shoulder complete minimum 2 views Jocy Ananth GARZA-C Work Phone: Start: 08-06-2022 Radex shoulder complete minimum 2 views Jocy Ananth PA-C Work Phone: Start: 07-02-2022 Radex shoulder complete minimum 2 views Jocy Ananth PA-C Work Phone: Start: 06-07-2022 Antibody screen Pacc 1 Work Phone: Start: 05-14-2022 INFLUENZA SEASONAL QUADRIVALENT HIGH DOSE AGE 65+ Mark Ramirez MD Work Phone: Start: 02-18-2022 Arthrocentesis aspir&/inj major jt/bursa w/o us Florian Chavez MD Work Phone: Start: 01-20-2022 Adult depression screening assessment Card 2 Work Phone: Start: 01-07-2022 Arthrocentesis aspir&/inj major jt/bursa w/o us Florian Chavez MD Work Phone: Start: 11-02-2021 Plain X-ray of clavicle Start: 11-02-2021 Plain X-ray of shoulder Start: 10-30-2021 Adult depression screening assessment Card 2 Work Phone: Start: 05-05-2021 Radiologic exam chest 2 views Emy Brown APRN.WATER PUMP INSTALLER Work Phone: Start: 12-23-2020 Colonoscopy Mark Ramirez MD Work Phone: Start: 11-04-2020 Adult depression screening assessment Mark Ramirez MD Work Phone: Start: 08-18-2020 Radiologic exam chest 2 views Mark Ramirez MD Work Phone: Start: 07-29-2020 Radiologic exam chest 2 views Mark Ramirez MD Work Phone: Start: 06-11-2020 Radex shoulder complete minimum 2 views Nara Hdez PA-C Work Phone: History of placement of stent for coronary artery disease S/P coronary artery stent placement Card 2 Work Phone: History of placement of stent for coronary artery disease S/P coronary artery stent placement Card 2 Work Phone: History of placement of stent for coronary artery disease S/P coronary artery stent placement Card 2 Work Phone: History of placement of stent for coronary artery disease S/P coronary artery stent placement Card 2 Work Phone: History of placement of stent for coronary artery disease S/P coronary artery stent placement Card 2 Work Phone: History of placement of stent for coronary artery disease S/P coronary artery stent placement Card 2 Work Phone: History of placement of stent for coronary artery disease S/P coronary artery stent placement Card 2 Work Phone: History of placement of stent for coronary artery disease S/P coronary artery stent placement Card 2 Work Phone: History of placement of stent for coronary artery disease S/P coronary artery stent placement Card 2 Work Phone: History of placement of stent for coronary artery disease S/P coronary artery stent placement Card 2 Work Phone: History of placement of stent for coronary artery disease S/P coronary artery stent placement Card 2 Work Phone: History of placement of stent for coronary artery disease S/P coronary artery stent placement Card 2 Work Phone: History of placement of stent for coronary artery disease S/P coronary artery stent placement Card 2 Work Phone: History of placement of stent for coronary artery disease S/P coronary artery stent placement Card 2 Work Phone: History of placement of stent for coronary artery disease S/P coronary artery stent placement Card 2 Work Phone: History of placement of stent for coronary artery disease S/P coronary artery stent placement Card 2 Work Phone: History of placement of stent for coronary artery disease S/P coronary artery stent placement Card 2 Work Phone: History of placement of stent for coronary artery disease S/P coronary artery stent placement Card 2 Work Phone: History of placement of stent for coronary artery disease S/P coronary artery stent placement Card 2 Work Phone: History of placement of stent for coronary artery disease S/P coronary artery stent placement Card 2 Work Phone: History of placement of stent for coronary artery disease S/P coronary artery stent placement Card 2 Work Phone: History of placement of stent for coronary artery disease S/P coronary artery stent placement Card 2 Work Phone: History of placement of stent for coronary artery disease S/P coronary artery stent placement Card 2 Work Phone: History of placement of stent for coronary artery disease S/P coronary artery stent placement Card 2 Work Phone: History of placement of stent for coronary artery disease S/P coronary artery stent placement Card 2 Work Phone: History of placement of stent for coronary artery disease S/P coronary artery stent placement Card 2 Work Phone: History of placement of stent for coronary artery disease S/P coronary artery stent placement Card 2 Work Phone: History of placement of stent for coronary artery disease S/P coronary artery stent placement Card 2 Work Phone: Plan of Treatment Date Care Activity Detail Author Start: 2030 RSV Vaccine (1 - 1-d ose 75+ series) RSV Vaccine (1 - 1-dose 75+ series) [facility] Start: 03-28-2030 Urine microalbumin profile [facility] Start: 11-21-2029 Lipid panel Lipid Screening [facility] Start: 06-28-2029 Screening for malign ant neoplasm of colon [facility] Start: 05-25-2029 Lipid panel Lipid Screening [facility] Start: 11-23-2028 Lipid panel Lipid Screening [facility] Start: 05-13-2028 Lipid 1996 panel - S felipa or Plasma Lipid Screening [facility] Start: 05-13-2028 Lipid panel Lipid Screening [facility] Start: 11-22-2027 Diabetes Screening Diabetes Screenin [facility] Start: 11-09-2027 Lipid 1996 panel - S felipa or Plasma Lipid Screening [facility] Start: 11-09-2027 LIPID SCREEN LIPID SCREEN [facility] Start: 06-28-2027 Screening for malign ant neoplasm of colon [facility] Start: 05-25-2027 Diabetes Screening Diabetes Screenin [facility] Start: 05-12-2027 LIPID SCREEN LIPID SCREEN [facility] Start: 11-23-2026 Diabetes Screening Diabetes Screenin [facility] Start: 11-03-2026 LIPID SCREEN LIPID SCREEN [facility] Start: 09-21-2026 LIPID SCREEN LIPID SCREEN [facility] Start: 05-13-2026 Diabetes Screening Diabetes Screenin [facility] Start: 02-25-2026 PROSTATE CANCER SCRE ENING DISCUSSION PROSTATE CANCER SCREENING DISCUSSION [facility] Start: 02-25-2026 Prostate specific an tigen measurement Prostate Cancer Screening Discussion [facility] Start: 12-18-2025 BP Controlled (<130/80) BP Controlle d (<130/80) [facility] Start: 11-22-2025 Annual PCP Team Bulk System Operator lora Disease Visit Annual PCP Team Chronic Disease Visit [facility] Start: 11-22-2025 Anxiety Screening Anxiety Screening [facility] Start: 11-22-2025 Covid-19 Vaccine () Covid-19 Vaccine () [facility] Comment on above: Postponed from 11/22 (Declined at this time) Start: 11-22-2025 Depression Screening Depression Scre ening [facility] Start: 11-21-2025 Hepatitis B surface antibody level LDL Cholesterol [facility] Start: 11-08-2025 DIABETES SCREEN DIABETES SCREEN [facility] Start: 11-08-2025 Diabetes Screening Diabetes Screenin g [facility] Start: 09-17-2025 BP Controlled (<130/80) BP Controlle d (<130/80) [facility] Start: 08-19-2025 End: 08-19-2025 Patient encounter procedure Cat Scan Comment on above: 1 yr LDCT 1 yr LCS Start: 08-13-2025 BP Controlled (<130/80) BP Controlle d (<130/80) [facility] Start: 08-13-2025 Screening for malign ant neoplasm of lung Lung Cancer Screening [facility] Start: 06-19-2025 End: 06-19-2025 Patient encounter procedure 06/19/2025 9:00 AM EST Office Visit Pulmonary Medicine [address] [place] [id number] Keith aGlo APRN.[employer] INST[employer] [address] [place] [id number] 6 mo follow up Pulmonary Medicine Comment on above: 6 mo follow up Start: 05-25-2025 Annual PCP Team Bulk System Operator lora Disease Visit Annual PCP Team Chronic Disease Visit [facility] Start: 05-25-2025 BP Controlled (<130/80) BP Controlle d (<130/80) [facility] Start: 05-25-2025 End: 08-24-2025 CBC W Auto Differential panel - Blood COMPLETE BLOOD COUNT AND DIFFERENTIAL Lab Routine Essential hypertension, benign Expected: 05/25/2025 (Approximate), Expires: 08/24/2025 [facility] Comment on above: Expected: 05/25/2025 (Approximate), Expires: 08/24/2025 Start: 05-25-2025 End: 08-24-2025 Comprehensive metabolic 2000 panel - Serum or Plasma COMPREHENSIVE METABOLIC PANEL Lab Routine Elevated glucose Essential hypertension, benign Mixed hyperlipidemia Expected: 05/25/2025 (Approximate), Expires: 08/24/2025 [facility] Work Phone: Comment on above: Expected: 05/25/2025 (Approximate), Expires: 08/24/2025 Start: 05-25-2025 End: 08-24-2025 Hemoglobin A1c in Blood HEMOGLOBIN A1C Lab Routine Elevated glucose Expected: 05/25/2025 (Approximate), Expires: 08/24/2025 [facility] Comment on above: Expected: 05/25/2025 (Approximate), Expires: 08/24/2025 Start: 05-25-2025 Hepatitis B surface antibody level LDL Cholesterol [facility] Start: 05-25-2025 End: 08-24-2025 Lipid 1996 panel - Serum or Plasma LIPID PANEL, FASTING Lab Routine Elevated glucose Essential hypertension, benign Mixed hyperlipidemia 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 Expected: 05/25/2025 (Approximate), Expires: 08/24/2025 [facility] Comment on above: Expected: 05/25/2025 (Approximate), Expires: 08/24/2025 Start: 05-25-2025 Shingrix Vaccine (2 of 2) Mascorro grix Vaccine (2 of 2) [facility] Comment on above: Postponed from 08/01 (Insurance Coverage) Start: 05-25-2025 End: 08-24-2025 Thyrotropin [Units/volume] in Serum or Plasma THYROID STIMULATING HORMONE Lab Routine Acquired hypothyroidism Expected: 05/25/2025 (Approximate), Expires: 08/24/2025 [facility] Comment on above: Expected: 05/25/2025 (Approximate), Expires: 08/24/2025 Start: 05-16-2025 BP Controlled (<130/80) BP Controlle d (<130/80) [facility] Start: 05-16-2025 End: 05-16-2025 Patient encounter procedure 05/16/2025 9:00 AM EDT Office Visit Family [facility] [address] [place], [place] [id number] Mark Ramirez MD [address] [place] [address] 6 mo f/u [facility] Comment on above: 6 mo f/u Start: 05-12-2025 DIABETES SCREEN DIABETES SCREEN [facility] Start: 12-18-2024 End: 12-18-2024 Patient encounter procedure Pulmonary Medicine Comment on above: 3 month f/u Start: 11-23-2024 Annual PCP Team Bulk System Operator lora Disease Visit Annual PCP Team Chronic Disease Visit [facility] Start: 11-23-2024 Anxiety Screening Anxiety Screening [facility] Start: 11-23-2024 BP Controlled (<130/80) BP Controlle d (<130/80) [facility] Start: 11-23-2024 Covid-19 Vaccine () Covid-19 Vaccine () [facility] Comment on above: Postponed from 03/18 (Declined at this time) Start: 11-23-2024 Depression Screening Depression Scre ening [facility] Start: 11-23-2024 Hepatitis B surface antibody level LDL Cholesterol [facility] Start: 11-22-2024 End: 02-21-2025 CBC W Auto Differential panel - Blood COMPLETE BLOOD COUNT AND DIFFERENTIAL Lab Routine Smoker Essential hypertension, benign Expected: 11/22/2024 (Approximate), Expires: 02/21/2025 [facility] Comment on above: Expected: 11/22/2024 (Approximate), Expires: 02/21/2025 Start: 11-22-2024 End: 02-21-2025 Comprehensive metabolic 2000 panel - Serum or Plasma COMPREHENSIVE METABOLIC PANEL Lab Routine Mixed hyperlipidemia Expected: 11/22/2024 (Approximate), Expires: 02/21/2025 [facility] Comment on above: Expected: 11/22/2024 (Approximate), Expires: 02/21/2025 Start: 11-22-2024 Covid-19 Vaccine () Covid-19 Vaccine () [facility] Start: 11-22-2024 End: 02-21-2025 Lipid 1996 panel - Serum or Plasma LIPID PANEL BASIC Lab Routine Mixed hyperlipidemia Expected: 11/22/2024 (Approximate), Expires: 02/21/2025 [facility] Work Phone: Comment on above: Expected: 11/22/2024 (Approximate), Expires: 02/21/2025 Start: 11-22-2024 End: 02-21-2025 Prostate specific Ag [Mass/volume] in Serum or Plasma PROSTATE-SPECIFIC ANTIGEN DIAGNOSTIC Lab Routine Elevated PSA Benign prostatic hyperplasia without lower urinary tract symptoms Expected: 11/22/2024 (Approximate), Expires: 02/21/2025 [facility] Comment on above: Expected: 11/22/2024 (Approximate), Expires: 02/21/2025 Start: 11-22-2024 End: 02-21-2025 Thyrotropin [Units/volume] in Serum or Plasma THYROID STIMULATING HORMONE Lab Routine Acquired hypothyroidism Expected: 11/22/2024 (Approximate), Expires: 02/21/2025 [facility] Comment on above: Expected: 11/22/2024 (Approximate), Expires: 02/21/2025 Start: 11-22-2024 End: 11-22-2024 Patient encounter procedure 11/22/2024 8:20 AM EDT Office Visit Family Medicine [facility] [address] [place] [address] Mark Ramirez MD [address] [place] [phone] 6 month follow up Family [facility] Comment on above: 6 month follow up Start: 11-09-2024 End: 11-09-2024 Patient encounter procedure 11/09/2024 9:00 AM EDT Appointment Radiology [address], [place] [id number] Oropharyngeal dysphagia [R13.12] Radiology Comment on above: Oropharyngeal dyspha dorian [R13.12] Start: 11-03-2024 DIABETES SCREEN DIABETES SCREEN [facility] Start: 09-29-2024 DIABETES SCREEN DIABETES SCREEN [facility] Start: 08-27-2024 End: 08-27-2024 ambulatory PULM LAB [facility] Comment on above: Shortness of breath [R06.02] Start: 08-13-2024 End: 08-13-2024 Patient encounter procedure Cat Scan Comment on above: Encounter for screen ing for lung cancer [Z12.2]; Tobacco use current [Z72.0] Start: 07-18-2024 Advance Directive Discussion Advance Directive Discussion [facility] Start: 07-05-2024 End: 07-05-2024 Patient encounter procedure General Surgery Comment on above: 06/28 colonoscopy fo llow up 06/28 colonoscopy fo llow up path in [facility] Start: 06-28-2024 End: 06-28-2024 Patient encounter procedure Ambulatory Surgery Comment on above: colon Start: 06-16-2024 End: 09-15-2024 Hepatic function 2000 panel - Serum or Plasma HEPATIC FUNCTION PNL Lab Routine Coronary artery disease due to lipid rich plaque Expected: 06/16/2024, Expires: 09/15/2024 [facility] Comment on above: Expected: 06/16/2024 , Expires: 09/15/2024 Start: 06-05-2024 End: 06-05-2024 Admission to same day surgery center 06/05/2024 9:25 AM EST - 06/05/2024 11:00 AM EST Surgery [facility] [address] [place] [address] Marisol Peng, DO [address] [place] [address]ON[address] W C[address] W IMAGE INJECT & INTERP W LT HEART CATH W INJECT LT VENTRGRAPHY [facility] Comment on above: CORONARY ANGIO W CAT H PLACE W IMAGE INJECT & INTERP W LT HEART CATH W INJECT LT VENTRGRAPHY Start: 06-05-2024 End: 06-05-2024 Cath plmt l hrt & arts w/njx & angio img s&i CORONARY ANGIO W CATH PLACE W IMAGE INJECT & INTERP W LT HEART CATH W INJECT LT VENTRGRAPHY Abnormal stress test SOB (shortness of breath) Abnormal findings on diagnostic imaging of heart and coronary circulation 06/05/2024 9:25 AM EST [facility] CATH Start: 06-05-2024 End: 06-05-2024 Right heart cath o2 saturation & cardiac output RIGHT HEART CATHETERIZATION INCLUDING MEASUREMENT OF OXYGEN SATURATION AND CARDIAC OUTPUT Abnormal stress test SOB (shortness of breath) Abnormal findings on diagnostic imaging of heart and coronary circulation 06/05/2024 9:25 AM EST [facility] CATH Start: 06-05-2024 Subsequent hospital visit by physician 06/05/2024 9:25 AM EST Hospital Encounter [facility] [address] [place] [address] Marisol Peng, [address] [place] [address] Abnormal stress test [R94.39], SOB (shortness of breath) [R06.02], Abnormal findings on diagnostic imaging of heart and coronary circulation [R93.1] [facility] Comment on above: Abnormal stress test [R94.39], SOB (shortness of breath) [R06.02], Abnormal findings on diagnostic imaging of heart and coronary circulation [R93.1] Start: 05-26-2024 End: 08-25-2024 CBC W Auto Differential panel - Blood COMPLETE BLOOD COUNT AND DIFFERENTIAL Lab Routine Essential hypertension, benign Expected: 05/26/2024 (Approximate), Expires: 08/25/2024 [facility] Comment on above: Expected: 05/26/2024 (Approximate), Expires: 08/25/2024 Start: 05-26-2024 End: 08-25-2024 Comprehensive metabolic 2000 panel - Serum or Plasma COMPREHENSIVE METABOLIC PANEL Lab Routine Mixed hyperlipidemia Expected: 05/26/2024 (Approximate), Expires: 08/25/2024 [facility] Comment on above: Expected: 05/26/2024 (Approximate), Expires: 08/25/2024 Start: 05-26-2024 End: 08-25-2024 Lipid 1996 panel - Serum or Plasma LIPID PANEL BASIC Lab Routine Mixed hyperlipidemia Expected: 05/26/2024 (Approximate), Expires: 08/25/2024 [facility] Work Phone: Comment on above: Expected: 05/26/2024 (Approximate), Expires: 08/25/2024 Start: 05-26-2024 End: 08-25-2024 Thyrotropin [Units/volume] in Serum or Plasma THYROID STIMULATING HORMONE Lab Routine Acquired hypothyroidism Expected: 05/26/2024 (Approximate), Expires: 08/25/2024 [facility] Comment on above: Expected: 05/26/2024 (Approximate), Expires: 08/25/2024 Start: 05-25-2024 End: 05-25-2024 Patient encounter procedure 05/25/2024 9:00 AM EST Office Visit [facility] [address] [place], [place] [phone] Mark Ramirez MD [address] [place], [place] [phone] 6 month follow up [facility] [place] Comment on above: 6 month follow up Start: 05-24-2024 Subsequent hospital visit by physician 05/24/2024 10:30 AM EST Hospital Encounter Cardiology Lab [address], [place] [id number] Coronary artery disease due to lipid rich plaque [I25.10, I25.83] Cardiology Lab Comment on above: Coronary artery dise ase due to lipid rich plaque [I25.10, I25.83] Start: 05-24-2024 End: 05-24-2024 Patient encounter procedure Cardiology Lab Comment on above: Coronary artery dise ase due to lipid rich plaque [I25.10, I25.83] Start: 05-16-2024 End: 05-16-2025 Echocardiography ECHO Cardiology Routine Coronary artery disease due to lipid rich plaque Ascending aorta dilatation (HCC) SOB (shortness of breath) Expected: 05/16/2024, Expires: 05/16/2025 [facility] Comment on above: Expected: 05/16/2024 , Expires: 05/16/2025 Start: 05-16-2024 End: 08-15-2024 Lipid 1996 panel - Serum or Plasma LIPID PANEL BASIC Lab Routine Coronary artery disease due to lipid rich plaque Expected: 05/16/2024, Expires: 08/15/2024 [facility] Comment on above: Expected: 05/16/2024 , Expires: 08/15/2024 Start: 05-16-2024 End: 06-16-2025 NM Heart Perfusion W multiple states of exercise NM CARDIAC PERF STRESS/EXERCISE Radiology Routine Coronary artery disease due to lipid rich plaque SOB (shortness of breath) Expected: 05/16/2024, Expires: 06/16/2025 [facility] Work Phone: Comment on above: Expected: 05/16/2024 , Expires: 06/16/2025 Start: 05-16-2024 End: 05-16-2024 Patient encounter procedure 05/16/2024 1:00 PM EDT Office Visit Cardiology [address] [id number] Esha Hawthorne MD [address] [place] [phone] Establish Care - had stents placed a few years ago Cardiology Comment on above: Establish Care - had stents placed a few years ago Start: 05-13-2024 Annual PCP Team Bulk System Operator lora Disease Visit Annual PCP Team Chronic Disease Visit [facility] Start: 05-13-2024 BP Controlled (<130/80) BP Controlle d (<130/80) [facility] Start: 05-13-2024 Hepatitis B surface antibody level LDL Cholesterol [facility] Start: 05-04-2024 End: 05-04-2024 Patient encounter procedure [facility] Comment on above: colon Start: 03-18-2024 Covid-19 Vaccine ( season) Covid-19 Vaccine ( season) [facility] Start: 03-18-2024 Covid-19 Vaccine ( season) Covid-19 Vaccine () [facility] Start: 03-18-2024 Influenza vaccination Influenza Vacc ine (#1) [facility] Start: 12-26-2023 End: 12-26-2023 Patient encounter procedure 12/26/2023 1:30 PM EDT Office Visit General Surgery [address] [place] [address] Judson Alves MD [address] [place] [address] Screening for colon cancer [Z12.11] General Surgery Comment on above: Screening for colon cancer [Z12.11] Start: 12-24-2023 Colonoscopy COLONOSCOPY [facility] Start: 12-24-2023 COLORECTAL CANCER SCREENING COLORECTAL CANCER SCREENING [facility] Start: 12-24-2023 Screening for malign ant neoplasm of colon [facility] Start: 12-03-2023 Influenza vaccination LUNG CANCER SC REENING [facility] Start: 12-03-2023 Screening for malign ant neoplasm of lung Lung Cancer Screening [facility] Start: 12-01-2023 BP CONTROLLED (<130/80) BP CONTROLLE D (<130/80) [facility] Start: 11-24-2023 End: 11-24-2023 Patient encounter procedure 11/24/2023 9:00 AM EDT Office Visit Family [facility] [address] [place] [address] Mark Ramirez MD [address] [place] [address] 6 month follow up HTN, lipid, thyroid [facility] [place] Comment on above: 6 month follow up HT N, lipid, thyroid Start: 11-13-2023 ANNUAL PCP TEAM STONE PLANER LORA DISEASE VISIT ANNUAL PCP TEAM CHRONIC DISEASE VISIT [facility] Start: 11-13-2023 BP CONTROLLED (<130/80) BP CONTROLLE D (<130/80) [facility] Start: 11-12-2023 End: 02-11-2024 Comprehensive metabolic 2000 panel - Serum or Plasma [facility] Work Phone: Comment on above: Expected: 11/12/2023 (Approximate), Expires: 02/11/2024 Start: 11-12-2023 End: 02-11-2024 Hemoglobin A1c in Blood HGB A1C Lab Routine Elevated glucose Expected: 11/12/2023 (Approximate), Expires: 02/11/2024 [facility] Work Phone: Comment on above: Expected: 11/12/2023 (Approximate), Expires: 02/11/2024 Start: 11-12-2023 End: 02-11-2024 Lipid 1996 panel - Serum or Plasma [facility] Work Phone: Comment on above: Expected: 11/12/2023 (Approximate), Expires: 02/11/2024 Start: 11-12-2023 End: 02-11-2024 Thyrotropin [Units/volume] in Serum or Plasma TSH BLD Lab Routine Acquired hypothyroidism Expected: 11/12/2023 (Approximate), Expires: 02/11/2024 [facility] Work Phone: Comment on above: Expected: 11/12/2023 (Approximate), Expires: 02/11/2024 Start: 11-09-2023 Hepatitis B surface antibody level LDL CHOLESTEROL [facility] Start: 07-18-2023 Advance Directive Discussion Advance Directive Discussion [facility] Start: 07-18-2023 Behavioral Health Screening Behavioral Health Screening [facility] Start: 07-18-2023 Depression Assessment Depression Ass essment [facility] Start: 06-07-2023 BP CONTROLLED (<130/80) BP CONTROLLE D (<130/80) [facility] Start: 05-14-2023 ANNUAL PCP TEAM STONE PLANER LORA DISEASE VISIT ANNUAL PCP TEAM CHRONIC DISEASE VISIT [facility] Start: 05-14-2023 End: 07-14-2023 CBC W Auto Differential panel - Blood CBC + DIFF Lab Routine Acquired hypothyroidism Mixed hyperlipidemia Expected: 05/14/2023 (Approximate), Expires: 07/14/2023 [facility] Work Phone: Comment on above: Expected: 05/14/2023 (Approximate), Expires: 07/14/2023 Start: 05-14-2023 End: 07-14-2023 Comprehensive metabolic 2000 panel - Serum or Plasma COMP METABOLIC PANEL Lab Routine Mixed hyperlipidemia Expected: 05/14/2023 (Approximate), Expires: 07/14/2023 [facility] Work Phone: Comment on above: Expected: 05/14/2023 (Approximate), Expires: 07/14/2023 Start: 05-14-2023 End: 07-14-2023 Lipid 1996 panel - Serum or Plasma LIPID PANEL BASIC Lab Routine Mixed hyperlipidemia Expected: 05/14/2023 (Approximate), Expires: 07/14/2023 [facility] Work Phone: Comment on above: Expected: 05/14/2023 (Approximate), Expires: 07/14/2023 Start: 05-14-2023 End: 07-14-2023 Thyrotropin [Units/volume] in Serum or Plasma TSH BLD Lab Routine Acquired hypothyroidism Expected: 05/14/2023 (Approximate), Expires: 07/14/2023 [facility] Work Phone: Comment on above: Expected: 05/14/2023 (Approximate), Expires: 07/14/2023 Start: 05-12-2023 Hepatitis B surface antibody level LDL CHOLESTEROL [facility] Start: 03-18-2023 Covid-19 Vaccine () Covid-19 Vaccine () [facility] Start: 03-18-2023 Influenza vaccination C [facility] Start: 01-20-2023 Adult depression screening assessment DEPRESSION SCREENING [facility] Start: 11-12-2022 End: 01-12-2023 Comprehensive metabolic 2000 panel - Serum or Plasma COMP METABOLIC PANEL Lab Routine 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 Expected: 11/12/2022 (Approximate), Expires: 01/12/2023 [facility] Work Phone: Comment on above: Expected: 11/12/2022 (Approximate), Expires: 01/12/2023 Start: 11-12-2022 End: 01-12-2023 Lipid 1996 panel - Serum or Plasma LIPID PANEL BASIC Lab Routine 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 Expected: 11/12/2022 (Approximate), Expires: 01/12/2023 [facility] Work Phone: Comment on above: Expected: 11/12/2022 (Approximate), Expires: 01/12/2023 Start: 11-12-2022 End: 01-12-2023 Thyrotropin [Units/volume] in Serum or Plasma TSH BLD Lab Routine Acquired hypothyroidism Expected: 11/12/2022 (Approximate), Expires: 01/12/2023 [facility] Work Phone: Comment on above: Expected: 11/12/2022 (Approximate), Expires: 01/12/2023 Start: 11-10-2022 ANNUAL PCP TEAM STONE PLANER LORA DISEASE VISIT ANNUAL PCP TEAM CHRONIC DISEASE VISIT [facility] Start: 11-03-2022 Hepatitis B surface antibody level LDL CHOLESTEROL [facility] Start: 10-30-2022 Adult depression screening assessment DEPRESSION SCREENING [facility] Start: 10-06-2022 ANNUAL PCP TEAM STONE PLANER LORA DISEASE VISIT ANNUAL PCP TEAM CHRONIC DISEASE VISIT [facility] Start: 09-21-2022 Hepatitis B surface antibody level LDL CHOLESTEROL [facility] Start: 07-18-2022 ADVANCE DIRECTIVE DISCUSSION ADVANCE DIRECTIVE DISCUSSION [facility] Start: 07-18-2022 DEPRESSION ASSESSMENT DEPRESSION ASS ESSMENT [facility] Start: 05-12-2022 End: 07-12-2022 CBC panel - Blood by Automated count CBC Lab Routine 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 Acquired hypothyroidism Expected: 05/12/2022, Expires: 07/12/2022 [facility] Work Phone: Comment on above: Expected: 05/12/2022 , Expires: 07/12/2022 Start: 05-12-2022 End: 07-12-2022 Comprehensive metabolic 2000 panel - Serum or Plasma COMP METABOLIC PANEL Lab Routine Mixed hyperlipidemia 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 Expected: 05/12/2022 (Approximate), Expires: 07/12/2022 [facility] Work Phone: Comment on above: Expected: 05/12/2022 (Approximate), Expires: 07/12/2022 Start: 05-12-2022 End: 07-12-2022 LIPID PANEL BASIC LIPID PANEL BASIC Lab Routine Mixed hyperlipidemia 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 Expected: 05/12/2022 (Approximate), Expires: 07/12/2022 [facility] Work Phone: Comment on above: Expected: 05/12/2022 (Approximate), Expires: 07/12/2022 Start: 05-12-2022 End: 07-12-2022 Thyrotropin [Units/volume] in Serum or Plasma TSH BLD Lab Routine Acquired hypothyroidism Expected: 05/12/2022 (Approximate), Expires: 07/12/2022 [facility] Work Phone: Comment on above: Expected: 05/12/2022 (Approximate), Expires: 07/12/2022 Start: 03-18-2022 Influenza vaccination INFLUENZA (#1) [facility] Start: 11-04-2021 Adult depression screening assessment DEPRESSION SCREENING [facility] Start: 09-29-2021 Influenza vaccination LUNG CANCER SC REENING [facility] Start: 08-24-2021 COVID-19 VACCINE (3 - Booster for Moderna series) COVID-19 VACCINE (3 - Booster for Moderna series) [facility] Start: 07-18-2021 ADVANCE DIRECTIVE DISCUSSION ADVANCE DIRECTIVE DISCUSSION [facility] Start: 07-18-2021 DEPRESSION ASSESSMENT DEPRESSION ASS ESSMENT [facility] Start: 05-19-2021 COVID-19 VACCINE (3 - Booster for Moderna series) COVID-19 VACCINE (3 - Booster for Moderna series) [facility] Start: 05-19-2021 COVID-19 VACCINE (3 - Moderna series) COVID-19 VACCINE (3 - Moderna series) [facility] Start: 2020 PNEUMOVAX AGE 65 AND OVER WITH 5YR LOOKBACK (#1) PNEUMOVAX AGE 65 AND OVER WITH 5YR LOOKBACK (#1) [facility] Start: 06-17-2020 Medicare Annual Well ness Visit Medicare Annual Wellness Visit [facility] Start: 08-01-2019 SHINGRIX VACCINE (2 of 2) MASCORRO GRIX VACCINE (2 of 2) [facility] Start: 2015 RSV Vaccine (1 - 1-d ose 60+ series) RSV Vaccine (1 - 1-dose 60+ series) [facility] Start: 2015 RSV Vaccine (1 - Ris k 60-74 years 1-dose series) RSV Vaccine (1 - Risk 60-74 years 1-dose series) [facility] Start: 10-16-2014 PNEUMOCOCCAL: 65+ (2 - PCV) PNEUMOCOCCAL: 65+ (2 - PCV) [facility] Start: 2000 COLOGUARD (FIT-DNA) COLOGUARD (FIT-D NA) [facility] Start: [address] COLONOGRAPHY [facility] Start: 2000 FECAL OCCULT BLOOD FECAL OCCULT BLOO D [facility] Start: 2000 Screening for malign ant neoplasm of colon [facility] Start: 2000 SIGMOIDOSCOPY SIGMOIDOSCOPY [facility] Start: 1973 BP Controlled (<130/80) BP Controlle d (<130/80) [facility] Start: 1955 ABDOMINAL AORTIC ANE URYSM SCREENING ABDOMINAL AORTIC ANEURYSM SCREENING [facility] Cath plmt l hrt & ar ts w/njx & angio img s&i CORONARY ANGIO W CATH PLACE W IMAGE INJECT & INTERP W LT HEART CATH W INJECT LT VENTRGRAPHY Abnormal stress test SOB (shortness of breath) Abnormal findings on diagnostic imaging of heart and coronary circulation ME CATH End: 07-18-2025 CT Chest for screening WO contrast CT LUNG SCREEN WO IVCON Radiology Routine Encounter for screening for lung cancer Tobacco use current 1 Occurrences starting 06/18/2024 until 07/18/2025 [facility] Work Phone: Comment on above: 1 Occurrences starti ng 06/18/2024 until 07/18/2025 End: 09-12-2025 CT Chest for screening WO contrast CT LUNG SCREEN WO IVCON Radiology Routine Smoker Encounter for screening for lung cancer 1 Occurrences starting 08/13/2024 until 09/12/2025 [facility] Comment on above: 1 Occurrences starti ng 08/13/2024 until 09/12/2025 End: 12-30-2023 CT LUNG SCREEN WO IVCON CT LUNG SCREEN WO IVCON Radiology Routine Encounter for screening for lung cancer Tobacco use current 1 Occurrences starting 11/30/2022 until 12/30/2023 [facility] Work Phone: Comment on above: 1 Occurrences starti ng 11/30/2022 until 12/30/2023 ECG COMPLETE ECG COMPLETE ECG 05/16/2024 1:07 PM EDT [facility] End: 09-12-2025 LUNG DIFFUSION CAPACITY (DLCO) LUNG DIFFUSION CAPACITY (DLCO) PFT Routine Shortness of breath 1 Occurrences starting 08/13/2024 until 09/12/2025 [facility] Comment on above: 1 Occurrences starti ng 08/13/2024 until 09/12/2025 End: 09-12-2025 LUNG VOLUMES LUNG VOLUMES PFT Routine Shortness of breath 1 Occurrences starting 08/13/2024 until 09/12/2025 [facility] Comment on above: 1 Occurrences starti ng 08/13/2024 until 09/12/2025 Mri any jt upper extremity w/o contrast matrl MRI SHOULDER WO IVCON RT Radiology Routine Acute pain of right shoulder Traumatic complete tear of right rotator cuff, initial encounter Ordered: 01/07/2022 [facility] Work Phone: Comment on above: Ordered: 01/07/2022 OXIMETRY - NOCTURNAL OXIMETRY - NOCTURNAL Procedures Routine Stage 3 severe COPD by GOLD classification (HCC) Ordered: 09/17/2024 [facility] Comment on above: Ordered: 09/17/2024 Patient Education ED Shoulder Sprain [facility] Work Phone: Patient referral [facility] Work Phone: PT PLAN OF CARE CERTIFICATION PT PLAN OF CARE CERTIFICATION Procedures Routine S/P shoulder surgery Ordered: 08/16/2022 [facility] Work Phone: Comment on above: Ordered: 08/16/2022 End: 12-12-2023 Radex spine cervical 4 or 5 views XR CERV OTHER 4V AP/LAT/OBL Radiology Routine Neck pain 1 Occurrences starting 11/12/2022 until 12/12/2023 [facility] Work Phone: Comment on above: 1 Occurrences starti ng 11/12/2022 until 12/12/2023 Radex spine cervical 4 or 5 views XR CERV OTHER 4V AP/LAT/OBL Radiology Routine Neck pain 11/12/2022 9:34 AM EDT [facility] Work Phone: Right heart cath o2 saturation & cardiac output RIGHT HEART CATHETERIZATION INCLUDING MEASUREMENT OF OXYGEN SATURATION AND CARDIAC OUTPUT Abnormal stress test SOB (shortness of breath) Abnormal findings on diagnostic imaging of heart and coronary circulation ME CATH End: 12-25-2024 Screening colonoscopy COLONOSCOPY SCREENING Endoscopy Routine History of colonic polyps 1 Occurrences starting 12/26/2023 until 12/25/2024 [facility] Work Phone: Comment on above: 1 Occurrences starti ng 12/26/2023 until 12/25/2024 End: 09-12-2025 SPIROMETRY WITH DILATOR IF OBSTRUCTED SPIROMETRY WITH DILATOR IF OBSTRUCTED PFT Routine Shortness of breath 1 Occurrences starting 08/13/2024 until 09/12/2025 [facility] Work Phone: Comment on above: 1 Occurrences starti ng 08/13/2024 until 09/12/2025 SURGICAL PATHOLOGY [facility] Work Phone: Comment on above: Release Upon Orderin g for 1 Occurrences starting 06/28/2024, 1 completed End: 12-12-2023 Us abdominal aorta real time screen study aaa US SCREENING FOR AAA Radiology Routine Screening for AAA (abdominal aortic aneurysm) 1 Occurrences starting 11/12/2022 until 12/12/2023 [facility] Work Phone: Comment on above: 1 Occurrences starti ng 11/12/2022 until 12/12/2023 End: 10-17-2025 XR Esophagus Views W contrast PO XR ESOPHAGRAM Radiology Routine Oropharyngeal dysphagia 1 Occurrences starting 09/17/2024 until 10/17/2025 [facility] Work Phone: Comment on above: 1 Occurrences starti ng 09/17/2024 until 10/17/2025 XR SHOULDER GENERAL 3V OR MORE AP/TRUE AP/OTHER RIGHT XR SHOULDER GENERAL 3V OR MORE AP/TRUE AP/OTHER RIGHT Radiology Routine Chronic right shoulder pain Ordered: 06/29/2022 [facility] Work Phone: Comment on above: Ordered: 06/29/2022 XR SHOULDER GENERAL 3V OR MORE AP/TRUE AP/OTHER RIGHT XR SHOULDER GENERAL 3V OR MORE AP/TRUE AP/OTHER RIGHT Radiology Routine Chronic right shoulder pain Ordered: 07/30/2022 [facility] Work Phone: Comment on above: Ordered: 07/30/2022 XR SHOULDER GENERAL 3V OR MORE AP/TRUE AP/OTHER RIGHT XR SHOULDER GENERAL 3V OR MORE AP/TRUE AP/OTHER RIGHT Radiology Routine Chronic right shoulder pain Ordered: 09/01/2022 [facility] Work Phone: Comment on above: Ordered: 09/01/2022 [facility] Immunizations Immunization Date Immunization Notes Care Provider [facility] 05-25-2024 COVID-19 vaccine, ag e 12+ yr ([employer] LICENSE OF [facility]) Mark Ramirez MD Work Phone: [facility] 05-25-2024 influenza, high dose seasonal, preservative-free Mark Ramirez MD Work Phone: [facility] 05-13-2023 influenza (HD-IIV4) vaccine, age 65+ yr, high dose, quadrivalent, PF (FLUZONE HIGH-DOSE) Mark Ramirez MD Work Phone: [facility] 05-13-2023 influenza virus vaccine, unspecified formulation Luz Mac RN [facility] 11-12-2022 pneumococcal (PCV20) vaccine, 20 valent (PREVNAR 20) Mark Ramirez MD Work Phone: [facility] 11-12-2022 pneumococcal Conjuga te, unspecified formulation Mark Ramirez MD Work Phone: [facility] Work Phone: 05-14-2022 influenza, high-dose , quadrivalent vaccine (FLUZONE HIGH DOSE QUADRIVALENT) Mark Ramirez MD Work Phone: [facility] 05-14-2022 influenza virus vaccine, unspecified formulation Luz Mac RN [facility] 05-07-2021 influenza, high-dose , quadrivalent vaccine (FLUZONE HIGH DOSE QUADRIVALENT) Mark Ramirez MD Work Phone: [facility] 03-24-2021 COVID-19 vaccine, fu ll dose (MODERNA) Mark Ramirez MD Work Phone: [facility] 05-06-2020 influenza, injectabl e, quadrivalent, contains preservative Mark Ramirez MD Work Phone: [facility] 03-28-2020 tetanus toxoid, redu minerva diphtheria toxoid, and acellular pertussis vaccine, adsorbed Mark Ramirez MD Work Phone: [facility] 06-06-2019 influenza, injectabl e, quadrivalent, contains preservative Mark Ramirez MD Work Phone: [facility] 06-06-2019 zoster vaccine recombinant Mark Ramirez MD Work Phone: [facility] 05-27-2018 Influenza, injectabl e, Madin [place] Canine Kidney, preservative free, quadrivalent Mark Ramirez MD Work Phone: [facility] 05-27-2018 influenza, seasonal, injectable Mark Ramirez MD Work Phone: [facility] 01-31-2018 tetanus toxoid, redu minerva diphtheria toxoid, and acellular pertussis vaccine, adsorbed Mark Ramirez MD Work Phone: [facility] 04-25-2017 influenza, seasonal, injectable Mark Ramirez MD Work Phone: [facility] 04-05-2017 influenza, injectabl e, quadrivalent, preservative free Mark Ramirez MD Work Phone: [facility] 10-16-2013 pneumococcal polysaccharide vaccine, 23 valent Mark Ramirez MD Work Phone: [facility] 03-18-2011 influenza virus vaccine, unspecified formulation Mark Ramirez MD Work Phone: [facility] 09-15-2006 tetanus toxoid, redu minerva diphtheria toxoid, and acellular pertussis vaccine, adsorbed Mark Ramirez MD Work Phone: [facility] Work Phone: Payers Date Payer Category Payer Self-pay [id number] 2020 [facility] ANTHEM ME DICARE SUPPLEMENT [id number] 2020 Medicare MEDICARE MEDICAR E A AND B [id number] 2020-Present [phone] [place] [address] Medicare [id number] 2020 Medicare [id number] 2020 Unknown ANTHEM ANTHEM ME DICARE SUPPLEMENT [id number] 2020-Present [phone] [address] [place] [id number] Indemnity [id number] 2020 Unknown ANTHEM ANTHEM ME DICARE SUPPLEMENT [id number] 2020-Present [phone] [address] [place] [address] Indemnity [id number] 2020 Medicare [id number] 2020 Unknown [id number] 2019 Private Health Insurance [facility] CHOICE PLUS [id number] 2019-2019 [address] [place] [address] HMO [id number] 1996 Private Health Insurance [facility] [id number] Unknown [facility] [id number] Unknown [id number] Social History Date Type Detail Facility Start: 07-18-1970 End: 05-16-2024 Tobacco smoking status GAIS Smokes tobacco daily [facility] Start: 07-18-1970 History of tobacco use Cigarette Smo ker [facility] Start: 01-29-2019 End: 11-29-2022 Cigarettes smoked current (pack per day) - Reported 1 [facility] Start: 01-29-2019 End: 05-16-2024 Tobacco use and exposure Smokeless tobacco non-user [facility] Start: 10-06-2021 End: 12-26-2023 Alcohol intake Current drinker of alcohol (finding) [facility] Start: 12-23-2020 History SDOH Alcohol Comment 8 beers per week [facility] Start: 05-20-2020 History SDOH Financial 4 [facility] Start: 05-20-2020 History SDOH Food Worry 1 [facility] Start: 05-20-2020 History SDOH Transpo rt Med 2 [facility] Start: 1955 Sex Assigned At Not on file [facility] Start: 05-12-2020 End: 06-07-2022 Exposure to SARS-CoV-2 (event) Not sure [facility] Start: 11-02-2021 Tobacco smoking stat us [facility] Unknown if ever smoked [facility] Work Phone: Start: 1955 Sex Assigned At Male [facility] Work Phone: Start: 06-07-2022 End: 09-17-2024 Alcohol intake Ex-drinker (finding) [facility] Start: 06-07-2022 Alcohol Comment 12 beers a week [facility] Start: 11-29-2022 End: 11-30-2022 Tobacco use panel [facility] How hard is it for y ou to pay for the very basics like food, housing, medical care, and heating Not hard at all [facility] (I/We) worried wheth er (my/our) food would run out before (I/we) got money to buy more. Never true [facility] In the past 12 month s, was there a time when you were not able to pay the mortgage or rent on time? No [facility] How hard is it for y ou to pay for the very basics like food, housing, medical care, and heating Not very hard [facility] In the past 12 month s, was there a time when you were not able to pay the mortgage or rent on time? Yes [facility] Start: 12-26-2023 Alcohol Comment less than 6 be ers a week [facility] Start: 06-16-2018 Alcohol Comment 12 pack beer w eekly- weekends [facility] Start: 11-22-2024 Tobacco Comment Down to 5-6 ci gs per day. [facility] Medical Equipment Procedure Code Equipment Code Equipment Origin al Text Equipment Identifier Dates Graft Flowgraft Surgical 1cc - [id number] Start: 06-28-2018 Screw Tenodesis 7mm Biocomposite 23mm Interference Sterile Acl - [id number] Start: 06-28-2018 Homestead Sut 4.5mm Bcmps Crkscr Ft [id number] Start: 06-28-2018 Reverse Shoulder System Imp Shldr Hum Sock [id number] 40mm [id number] Start: 06-25-2022 Head 40mm Kusum l Glenoid Shoulder - [id number] Start: 06-25-2022 Baseplate Rsp P2 30mm Glenoid Sterile - [id number] Start: 06-25-2022 Screw Rsp 5mm 26 mm Bone Lock Glenoid Baseplate Shoulder - [id number] Start: 06-25-2022 Stem Altivate Dj o Surgical 14 Standard 108mm Humeral Sterile Shoulder - [id number] Start: 06-25-2022 Screw Rsp 5mm 18 mm Bone Lock Glenoid Baseplate Shoulder - [id number] Start: 06-25-2022 Screw Rsp 5mm 18 mm Bone Lock Glenoid Baseplate Shoulder - [id number] Start: 06-25-2022 Screw Rsp 5mm 30 mm Bone Lock Glenoid Baseplate Shoulder - [id number] Start: 06-25-2022 Goals Date Patient Goal Desired Activity /State Personal health goal Comment on above: Formatting of this n ote might be different from the original. Patient would like full recover (right shoulder surgery) and maintain health to enjoy golfing. Personal health goal Comment on above: Formatting of this n ote might be different from the original. Patient would like to maintain health enjoy golfing and get addition done on house for . Personal health goal Comment on above: Formatting of this n ote might be different from the original. Patient has the following Congestive Heart Failure Goals: Two PCP Visits annually, Two Cardiology Visits annually, and Medication review by PCP or Pharmacy once a year CHF Education given and reviewed with patient --sent on 06/02/23 Heart Failure Zones and Understanding Heart Failure Patient will meet these goals by 07/17/24 (describe interventions done by PCC) Personal health goal Comment on above: Formatting of this n ote might be different from the original. Patient would like maintain health and win lottery. Comment on above: Formatting of this n ote might be different from the original. Patient would like full recover (right shoulder surgery) and maintain health to enjoy golfing. Functional Status Date Assessment Result Facility 06-26-2022 Are you deaf, or do you have serious difficulty hearing No 06/26/2022 11:43 AM Dhruv Ceja RN No [facility] 06-26-2022 Are you blind, or do you have serious difficulty seeing, even when wearing glasses No 06/26/2022 11:43 AM Dhruv Ceja RN No [facility] 06-26-2022 Do you have serious difficulty walking or climbing stairs No 06/26/2022 11:43 AM Dhruv Ceja RN No [facility] 06-26-2022 Do you have difficul ty dressing or bathing No 06/26/2022 11:43 AM Dhruv Ceja RN No [facility] 06-26-2022 Because of a physica l, mental, or emotional condition, do you have difficulty doing errands alone such as visiting a physician's office or shopping No 06/26/2022 11:43 AM Dhruv Ceja RN No [facility] Mental Status Date Assessment Result Facility 06-26-2022 Because of a physica l, mental, or emotional condition, do you have serious difficulty concentrating, remembering, or making decisions No 06/26/2022 11:43 AM Dhruv Ceja RN No [facility] Clinical Notes 06-11-2020 to 12-31-2024 Telephone Encounter - yCnthia Chi MA - 12/31/2024 2:29 PM EDTTelephone Encounter - Cynthia Chi MA - 12/31/2024 2:29 PM EDTBTwila vincent MD - 12/31/2024 8:10 AM EDT Note Date & Type Note Facility 12-31-2024 Telephone encounter Note Office received fax from [facility] for gabi wrist and hand braces. Spoke with pt, he did not request these. Forms have been discarded. Cynthia Chi MA [facility] 12-31-2024 Miscellaneous Notes Office received fax from [facility] for gabi wrist and hand braces. Spoke with pt, he did not request these. Forms have been discarded. Cynthia Chi MA documented in this encounter [facility] 12-31-2024 Note HNO ID: [id number] Author: TWILA GLASER MD Service: ? Author Type: Physician Type: Progress Notes Filed: 12/31/2024 08:11 Note Text: Overnight oximetry on 3 L shows adequate saturations. [facility] 12-31-2024 History of Present illness Narrative Overnight oximetry on 3 L shows adequate saturations. documented in this encounter [facility] 12-18-2024 Instructions Keith Galo APRN.CNP - 12/18/2024 10:07 AM EDT We discussed your chronic obstructive pulmonary disease (COPD) and current treatment: - Continue using Trelegy once daily as prescribed. Ensure you rinse your mouth thoroughly after each use to prevent irritation or potential thrush. This can be done with water or incorporated into your routine with mouthwash or brushing your teeth. - Continue using albuterol as needed for symptom relief. You mentioned using it approximately 3-4 times per week, which is an improvement. If you find yourself needing it more frequently or if your symptoms worsen, please contact our office. - If you notice any signs of thrush, such as white patches in your mouth, soreness, or pain while eating or drinking, please let us know. We can treat it with a mouth rinse if needed. We discussed your smoking: - You have reduced your smoking to about a quarter pack per day. Continue working on cutting back. If you decide you d like assistance, nicotine replacement options like gum or lozenges are available. Follow-Up: - Schedule a follow-up appointment in 6 months to monitor your progress and ensure your treatment plan is still effective. - If you experience any new or worsening symptoms, such as increased shortness of breath, chest pain, or frequent use of albuterol, please contact our office sooner. documented in this encounter [facility] 12-18-2024 History of Present illness Narrative Images from the original note were not included. Pulmonary Medicine Patients name: Lorenzo Reis PCP: Mark Ramirez MD Recording using [employer] software for draft documentation of the visit was discussed with the patient/authorized jewelry sales representative; all questions welcomed and answered. Patient/authorized jewelry sales representative agreed to proceed CC: follow-up HPI: Lorenzo Reis is a 69 year old male current > 50 pack year smoker with PMH significant for hypothyroidism, HLD, h/o PE, CAD s/p stents, PUD, lung nodules. New patient 10/2024 for evaluation of COPD. PFT revealed moderately severe obstruction with lung volumes showing hyperinflation and air trapping. Inhaled therapy increased to Trelegy and PRN Albuterol. Smoking cessation highly encouraged, restarted on Chantix. He presents today for follow-up. Since his MEREDITH, he had a nocturnal assessment which showed signficant desaturations and was started on O2. He also had concerns for aspiration but his esophagram was normal. Prior to Trelegy, he was only using albuterol as needed and did not have a maintenance inhaler. He reports that his dyspnea and cough have improved but are still present. 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 He continues to experience a cough with occasional expectoration of clear phlegm. He denies any episodes of wheezing or chest tightness. He uses albuterol approximately 4 times per week, primarily during stressful situations. This is a significant reduction compared to before starting Trelegy. He denies any recent illnesses, issues with allergies, sinus congestion, or post-nasal drainage. Lorenzo has been actively reducing his smoking and is currently down to about a quarter pack per day. He previously tried Chantix but not finding it helpful. He believes that his smoking cessation efforts are primarily a mental challenge. He has been rinsing his mouth well after using Trelegy and denies any issues with oral sores. He recently received new dentures and reports some irritation in his mouth, which he attributes to the dentures and the presence of stitches that need to be removed. He denies any history of oral thrush. DME: [employer] 2L nocturnal O2 PAST MEDICAL HISTORY Diagnosis Date Acute pulmonary embolism (HCC) 06/2020 unknown cause; pt on Eliquis Benign neoplasm of rectum and anal canal CAD (coronary artery disease) s/p stents COPD (chronic obstructive pulmonary disease) (HCC) History of peptic ulcer disease Pure hypercholesterolemia Snoring Tobacco use Unspecified hypothyroidism Allergies: Bees Swelling Comment:Pt has been through desensitization. Medication List Accurate as of December 17, 2024 6:25 PM. If you have any questions, ask your nurse or doctor. CONTINUE taking these medications acetaminophen 325 mg tablet Commonly known as: TYLENOL Take 2 tablets by mouth every 4 hours as needed for pain or fever (specify). albuterol HFA 90 mcg/actuation inhaler Commonly known as: PROVENTIL HFA, VENTOLIN HFA Shake well then inhale 2 to 4 puffs as instructed every 6 hours as needed for wheezing/shortness of breath. atorvastatin 80 mg tablet Commonly known as: LIPITOR Take 1 tablet by mouth daily at bedtime. ezetimibe 10 mg tablet Commonly known as: ZETIA Take 1 tablet by mouth once daily. finasteride 5 mg tablet Commonly known as: PROSCAR Take 1 tablet by mouth once daily. levothyroxine 175 mcg tablet Commonly known as: SYNTHROID Take 1 tablet by mouth once daily. Take on empty stomach. For thyroid prasugrel 10 mg Tab Commonly known as: EFFIENT Take 1 tablet by mouth once daily. Start with 60 mg (6 tablets) loading dose after you stop brilinta, then continue with 1 tablet (10 mg) once daily thereafter. TRELEGY ELLIPTA 100-62.5-25 mcg inhalation powder Generic drug: [id number] Inhale 1 Puff as instructed once daily. DATA: I personally reviewed and analyzed all labs, radiographs and available pulmonary function testing PFT: 08/2024 Spirometry indicates moderate obstruction. Positive bronchodilator response. Lung volumes (FRC and/or RV) are elevated indicating hyperinflation and air trapping. The diffusion capacity (uncorrected for hemoglobin) is normal. CT Chest: 07/2024 RESULT: Are nodules present? Yes, 1-5 nodules Lung nodule comments: 5 mm left fissural nodule (173) unchanged. 4 mm right fissural nodule (150) unchanged. 3 mm left upper lobe nodule (70) unchanged. 4 mm subpleural left upper lobe nodule (51) unchanged. Other findings: Cholelithiasis. Severe coronary calcifications. Degenerative changes of the thoracic spine. Posterior left rib chronic deformities. Right shoulder hardware. Saber-sheath tracheal morphology with diffuse bronchial thickening and minimal upper lobe emphysema. Labs: WBC (k/uL) Date Value 11/21/2024 8.19 05/21/2020 6.50 RBC (m/uL) Date Value 11/21/2024 5.07 05/21/2020 4.77 Hemoglobin (g/dL) Date Value 11/21/2024 14.9 05/21/2020 14.1 Hematocrit (%) Date Value 11/21/2024 46.9 05/21/2020 45.1 Platelet Count (k/uL) Date Value 11/21/2024 219 05/21/2020 223 MPV (fL) Date Value 11/21/2024 10.5 05/21/2020 10.5 Neut% (%) Date Value 05/19/2020 73.8 Neutrophils % (%) Date Value 11/21/2024 53.3 Eosin% (%) Date Value 05/19/2020 0.0 Eosinophils % (%) Date Value 11/21/2024 2.9 Baso% (%) Date Value 05/19/2020 0.8 Basophils % (%) Date Value 11/21/2024 0.7 Abs Neut (ANC) (k/uL) Date Value 05/19/2020 5.30 Abs Neut (k/uL) Date Value 11/21/2024 4.36 Abs Victoria (k/uL) Date Value 11/21/2024 0.62 05/19/2020 0.57 Abs Eosin (k/uL) Date Value 11/21/2024 0.24 05/19/2020 <0.03 Abs Baso (k/uL) Date Value 11/21/2024 0.06 05/19/2020 0.06 Review of Systems Constitutional: Negative for activity change, appetite change and unexpected weight change. HENT: Negative for congestion, postnasal drip and sinus pain. Respiratory: Positive for cough and shortness of breath. Negative for chest tightness and wheezing. Cardiovascular: Negative for chest pain, palpitations and leg swelling. Allergic/Immunologic: Negative for environmental allergies. Neurological: Negative for dizziness, weakness and light-headedness. BP 104/62 Pulse (!) 55 Resp 16 Wt 95.3 kg (210 lb) SpO2 99% BMI 32.77 kg/m General: Alert, oriented, no acute distress Neck: No carotid bruit on bilateral auscultation Respiratory: Clear to posterior auscultation, bilaterally Cardiovascular: Regular rate and rhythm, normal S1 and S2, no murmurs or added sounds Extremities: Mild LE edema. No clubbing, cyanosis. Oral Cavity: Mucosa appears slightly raw towards the back, likely due to recent dental extractions and new dentures. No white patches or signs of thrush noted. ASSESSMENT/PLAN: 1. Stage 3 severe COPD by GOLD classification (HCC) - ICD9: 496, ICD10: J44.9 (primary diagnosis) - improvement in symptoms with Trelegy - Continue Trelegy once daily; ensure thorough oral rinsing post-inhalation to prevent oropharyngeal candidiasis. - Continue albuterol prn; monitor usage frequency. - Educated patient on signs of thrush and advised to report any concerns. - Follow-up in 6 months to reassess symptoms and treatment efficacy. 2. Cigarette smoker - ICD9: 305.1, ICD10: F17.210 - Reduced smoking to approximately 1/4 pack per day. Previous trial of Chantix was ineffective. No use of nicotine replacement therapy. - Continue efforts to reduce smoking. - Offered support for smoking cessation, including nicotine replacement options. F/u 6 months Portions of this documentation were copied and pasted from previous office visit notes in order to provide a cohesive continuity of the history. The note has been reviewed and edited and updated as necessary. Keith Galo APRN.CNP I spent a total of 17 minutes on the date of the service which included preparing to see the patient, vgdr-oi-theu patient care, completing clinical documentation, performing a medically appropriate examination, counseling and educating the patient/family/caregiver, and ordering medications, tests, or procedures. documented in this encounter [facility] 12-18-2024 Note HNO ID: [id number] Author: KEITH GALO APRN.CNP Service: ? Author Type: Nurse Practitioner Type: Progress Notes Filed: 12/18/2024 14:55 Note Text: Pulmonary Medicine Patients name: Lorenzo Reis PCP: Mark Ramirez MD Recording using [employer] software for draft documentation of the visit was discussed with the patient/authorized jewelry sales representative; all questions welcomed and answered. Patient/authorized jewelry sales representative agreed to proceed CC: follow-up HPI: Lorenzo Reis is a 69 year old male current > 50 pack year smoker with PMH significant for hypothyroidism, HLD, h/o PE, CAD s/p stents, PUD, lung nodules. New patient 10/2024 for evaluation of COPD. PFT revealed moderately severe obstruction with lung volumes showing hyperinflation and air trapping. Inhaled therapy increased to Trelegy and PRN Albuterol. Smoking cessation highly encouraged, restarted on Chantix. He presents today for follow-up. Since his MEREDITH, he had a nocturnal assessment which showed signficant desaturations and was started on O2. He also had concerns for aspiration but his esophagram was normal. Prior to Trelegy, he was only using albuterol as needed and did not have a maintenance inhaler. He reports that his dyspnea and cough have improved but are still present. 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 He continues to experience a cough with occasional expectoration of clear phlegm. He denies any episodes of wheezing or chest tightness. He uses albuterol approximately 4 times per week, primarily during stressful situations. This is a significant reduction compared to before starting Trelegy. He denies any recent illnesses, issues with allergies, sinus congestion, or post-nasal drainage. Lorenzo has been actively reducing his smoking and is currently down to about a quarter pack per day. He previously tried Chantix but not finding it helpful. He believes that his smoking cessation efforts are primarily a mental challenge. He has been rinsing his mouth well after using Trelegy and denies any issues with oral sores. He recently received new dentures and reports some irritation in his mouth, which he attributes to the dentures and the presence of stitches that need to be removed. He denies any history of oral thrush. DME: [employer] 2L nocturnal O2 PAST MEDICAL HISTORY Diagnosis Date Acute pulmonary embolism (HCC) 06/2020 unknown cause; pt on Eliquis Benign neoplasm of rectum and anal canal CAD (coronary artery disease) s/p stents COPD (chronic obstructive pulmonary disease) (HCC) History of peptic ulcer disease Pure hypercholesterolemia Snoring Tobacco use Unspecified hypothyroidism Allergies: Bees Swelling Comment:Pt has been through desensitization. Medication List Accurate as of December 17, 2024 6:25 PM. If you have any questions, ask your nurse or doctor. CONTINUE taking these medications acetaminophen 325 mg tablet Commonly known as: TYLENOL Take 2 tablets by mouth every 4 hours as needed for pain or fever (specify). albuterol HFA 90 mcg/actuation inhaler Commonly known as: PROVENTIL HFA, VENTOLIN HFA Shake well then inhale 2 to 4 puffs as instructed every 6 hours as needed for wheezing/shortness of breath. atorvastatin 80 mg tablet Commonly known as: LIPITOR Take 1 tablet by mouth daily at bedtime. ezetimibe 10 mg tablet Commonly known as: ZETIA Take 1 tablet by mouth once daily. finasteride 5 mg tablet Commonly known as: PROSCAR Take 1 tablet by mouth once daily. levothyroxine 175 mcg tablet Commonly known as: SYNTHROID Take 1 tablet by mouth once daily. Take on empty stomach. For thyroid prasugrel 10 mg Tab Commonly known as: EFFIENT Take 1 tablet by mouth once daily. Start with 60 mg (6 tablets) loading dose after you stop brilinta, then continue with 1 tablet (10 mg) once daily thereafter. TRELEGY ELLIPTA 100-62.5-25 mcg inhalation powder Generic drug: zwabodholrs-wqlgkbokm-jlutehlm Inhale 1 Puff as instructed once daily. DATA: I personally reviewed and analyzed all labs, radiographs and available pulmonary function testing PFT: 08/2024 Spirometry indicates moderate obstruction. Positive bronchodilator response. Lung volumes (FRC and/or RV) are elevated indicating hyperinflation and air trapping. The diffusion capacity (uncorrected for hemoglobin) is normal. CT Chest: 07/2024 RESULT: Are nodules present? Yes, 1-5 nodules Lung nodule comments: 5 mm left fissural nodule (173) unchanged. 4 mm right fissural nodule (150) unchanged. 3 mm left upper lobe nodule (70) unchanged. 4 mm subpleural left upper lobe nodule (51) unchanged. Other findings: Cholelithiasis. Severe coronary calcifications. Degenerative changes of the thoracic spine. Posterior left rib chronic deformities. Right shoulder hardware. Saber-sheath tracheal morphology with diffuse bron (more content not included)... [facility] 11-22-2024 History of Present illness Narrative Chief Complaint Patient presents with: F/U 6 Month HPI Lorenzo Reis is a 69 year old male who presents here today for 6 month follow up. Smoking but trying to quit. Former 1 ppd smoker, now smoking 5-6 cigs per day. Denies any bowel, Gi, or urinary issues. Gets up once a night to urinate. Taking Proscar 5 mg daily. PSA lab monitored. Pt no longer follows with any urologists. HTN: Denies checking BP at home, no chest pains, dizziness, or SOB. Taking Effient 10 mg daily. Lipid/CAD/Glucose: Hx of elevated glucose, on no current medications at this time. Monitoring with routine labs. Follows with Cardio Dr. Peng. Had heart catheterization done on 06/05/24. Denies watching his diet, but eats whatever his makes. Denies any exercise, but stays active still working 50 hours a week. Taking Lipitor 80 mg daily and Zetia 10 mg daily. Thyroid: Taking Synthroid 175 mcg daily. Feels stable on current dosage, denies any missed dosages. COPD: Stage 3 Severe; Smoker; follows with Pulm Dr. Glaser. Had PFT testing done. Currently trying to quit smoking on his own, was given Chantix but decided to try to quit on his own. Former 1 ppd smoker, now down to 5-6 cigarettes per day. Currently using Trelegy Ellipta 100-62.5-25 mcg 1 puff daily and Proventil HFA 90 mcg 2-4 puffs every 6 hours prn. Rare use of rescue inhaler. Feels adding the inhaler does help the breathing some. HM - Shingles vaccine through Pharmacy due to Medicare Insurance. Does have Adv Dir/Living Will. Anxiety/Depression screening completed, negative. Declines Covid booster at this time. Past medical history, appointments, medications, allergies reviewed. Previous Medical History PAST MEDICAL HISTORY Diagnosis Date Acute pulmonary embolism (HCC) 06/2020 unknown cause; pt on Eliquis Benign neoplasm of rectum and anal canal CAD (coronary artery disease) s/p stents COPD (chronic obstructive pulmonary disease) (HCC) History of peptic ulcer disease Pure hypercholesterolemia Snoring Tobacco use Unspecified hypothyroidism Previous Surgical History PAST SURGICAL HISTORY Procedure Laterality Date COLONOSCOPY FLX DX W/COLLJ SPEC WHEN PFRMD 06/16/2009 Colonoscopy COLONOSCOPY FLX DX W/COLLJ SPEC WHEN PFRMD 08/05/2016 Colonoscopy COLONOSCOPY FLX DX W/COLLJ SPEC WHEN PFRMD 02/15/2018 multiple adenomatous polyps, repeat in 3 years COLONOSCOPY FLX DX W/COLLJ SPEC WHEN PFRMD 12/23/2020 COLSC FLX W/RMVL OF TUMOR POLYP LESION SNARE TQ 10/21/2006 Large polyp at 50cm, 3 small sessile polyps in low rectosigmoid COLSC FLX W/RMVL OF TUMOR POLYP LESION SNARE TQ 06/25/2011 polyp in rectum DIAGNOSIS/HISTORY left 5th finger, laceration repair HERNIA REPAIR HX PAST SURGICAL HISTORY OF Right 1979 right shoulder Dislocated collar bone, ORIF Dr. Kilgore PAST SURGICAL HISTORY OF N/A 08/20/2020 Prostate biopsy PERCUTANEOUS CORONARY INTERVENTION Bilateral 09/23/2021 Left circumflex and RCA RPR PRIMARY OPEN/PRQ RUPTURED ACHILLES W/GRAFT Right 2018 RPR UMBILICAL HRNA 5 YRS/> REDUCIBLE 07/15/2009 with mesh Family History FAMILY HISTORY Problem Relation Age of Onset Alzheimer's Disease Mother Coronary Artery Disease Father [place] Prostate Cancer Father Colon Cancer Father Heart disease Brother Patient Allergies ALLERGIES Allergen Reactions Bees Swelling Pt has been through desensitization. Current Medications Current Outpatient Medications on File Prior to Visit Medication Sig ttapfitniki-pplysdifb-qaauyayg (TRELEGY ELLIPTA) 100-62.5-25 mcg inhalation powder Inhale 1 Puff as instructed once daily. varenicline (CHANTIX) 1 mg tablet Take 0.5 tablets by mouth once daily for 3 days, THEN 0.5 tablets two times a day for 4 days, THEN 1 tablet two times a day for 23 days. varenicline (CHANTIX) 1 mg tablet Take 1 tablet by mouth two times a day. Patient should start on October 17, 2024. albuterol HFA (PROVENTIL HFA, VENTOLIN HFA) 90 mcg/actuation inhaler Shake well then inhale 2 to 4 puffs as instructed every 6 hours as needed for wheezing/shortness of breath. ezetimibe (ZETIA) 10 mg tablet Take 1 tablet by mouth once daily. prasugrel (EFFIENT) 10 mg tab Take 1 tablet by mouth once daily. Start with 60 mg (6 tablets) loading dose after you stop brilinta, then continue with 1 tablet (10 mg) once daily thereafter. finasteride (PROSCAR) 5 mg tablet Take 1 tablet by mouth once daily. atorvastatin (LIPITOR) 80 mg tablet Take 1 tablet by mouth daily at bedtime. levothyroxine (SYNTHROID) 175 mcg tablet Take 1 tablet by mouth once daily. Take on empty stomach. For thyroid acetaminophen (TYLENOL) 325 mg tablet Take 2 tablets by mouth every 4 hours as needed for pain or fever (specify). No current facility-administered medications on file prior to visit. Social History Social History Tobacco Use Smoking status: Every Day Current packs/day: 1.00 Average packs/day: 1 pack/day for 54.3 years (54.3 ttl pk-yrs) Types: Cigarettes Start date: 1970 Smokeless tobacco: Never Vaping Use Vaping status: Never Used Substance Use Topics Alcohol use: Not Currently Drug use: No EXAM: BP 130/84 (BP Site: Left Arm, BP Position: Sitting, BP Cuff Size: Regular Adult) Pulse 60 Resp 16 Wt 95.5 kg (210 lb 8.6 oz) BMI 32.85 kg/m General Appearance: Well appearing, alert, in no acute distress, well-hydrated, well nourished. and Obese. Neck: Supple, no adenopathy; thyroid symmetric, normal size, no bruits. Lungs: Lungs clear to auscultation. No wheezing, rhonchi, rales.. Heart: RRR without murmur, gallop, or rubs. No ectopy. Health Maintenance List Shingrix Vaccine(2 of 2) due on 08/01/2019 Advance Directive Discussion due on 07/18/2024 Covid-19 Vaccine( season) due on 11/22/2024 Depression Screening due on 11/23/2024 Anxiety Screening due on 11/23/2024 Annual PCP Team Chronic Disease Visit due on 05/25/2025 Lung Cancer Screening due on 08/13/2025 BP Controlled (<130/80) due on 09/17/2025 LDL Cholesterol due on 11/21/2025 Diabetes Screening due on 11/22/2027 Colorectal Cancer Screening due on 06/28/2029 Lipid Screening due on 11/21/2029 DTaP,Tdap,Td Vaccine(4 - Td or Tdap) due on 03/28/2030 RSV Vaccine(1 - 1-dose 75+ series) due on 2030 Abdominal Aortic Aneurysm Screening Completed Influenza Vaccine Completed Hepatitis C Screening Completed Pneumococcal Vaccine: 50+ Completed Data reviewed Appointment on 11/21/2024 Component Date Value Cholesterol, Total 11/21/2024 156 Triglyceride 11/21/2024 81 HDL Cholesterol 11/21/2024 39 (L) LDL Cholesterol, Calcula* 11/21/2024 101 (H) Non HDL Cholesterol 11/21/2024 117 VLDL Cholesterol 11/21/2024 13 TC:HDL Ratio 11/21/2024 4.00 LDL:HDL Ratio 11/21/2024 2.59 (H) Fasting Time 11/21/2024 12 Protein, Total 11/21/2024 6.7 Albumin 11/21/2024 3.9 Calcium, Total 11/21/2024 8.9 Bilirubin, Total 11/21/2024 0.4 Alkaline Phosphatase 11/21/2024 80 AST 11/21/2024 24 ALT 11/21/2024 20 Glucose 11/21/2024 102 (H) BUN 11/21/2024 14 Creatinine 11/21/2024 0.82 Sodium 11/21/2024 140 Potassium 11/21/2024 4.6 Chloride 11/21/2024 104 CO2 11/21/2024 26 Anion Gap 11/21/2024 10 Estimated Glomerular Emanuel* 11/21/2024 95 TSH 11/21/2024 1.430 WBC 11/21/2024 8.19 RBC 11/21/2024 5.07 Hemoglobin 11/21/2024 14.9 Hematocrit 11/21/2024 46.9 MCV 11/21/2024 92.5 MCH 11/21/2024 29.4 MCHC 11/21/2024 31.8 RDW-CV 11/21/2024 13.0 Platelet Count 11/21/2024 219 MPV 11/21/2024 10.5 Neutrophils % 11/21/2024 53.3 Abs Neut 11/21/2024 4.36 Lymphocytes % 11/21/2024 35.0 Abs Lymph 11/21/2024 2.87 Monocytes % 11/21/2024 7.6 Abs Victoria 11/21/2024 0.62 Eosinophils % 11/21/2024 2.9 Abs Eosin 11/21/2024 0.24 Basophils % 11/21/2024 0.7 Abs Baso 11/21/2024 0.06 Immature Granulocytes % 11/21/2024 0.5 Abs Immature Gran 11/21/2024 0.04 NRBC 11/21/2024 0.0 Absolute nRBC 11/21/2024 <0.01 Diff Type 11/21/2024 Auto PSA 11/21/2024 3.19 (H) ASSESSMENT/PLAN: 1. Acquired hypothyroidism - ICD9: 244.9, ICD10: E03.9 (primary diagnosis) - Instructed patient on importance of taking on an empty stomach either first thing in the morning or at bedtime. - check TSH in 6 months - LEVOTHYROXINE 175 MCG TABLET - THYROID STIMULATING HORMONE 2. Elevated glucose - ICD9: 790.29, ICD10: R73.09 - Stable, continue to monitor - Continue watching diet and staying active - COMPREHENSIVE METABOLIC PANEL - LIPID PANEL, FASTING - HEMOGLOBIN A1C 3. Essential hypertension, benign - ICD9: 401.1, ICD10: I10 - Controlled - Continue current medications - Recommend home blood pressure monitoring, to bring results to next visit - Encouraged sodium restriction, DASH or Mediterranean diet - Recommend regular aerobic exercise - COMPREHENSIVE METABOLIC PANEL - LIPID PANEL, FASTING - COMPLETE BLOOD COUNT AND DIFFERENTIAL 4. Mixed hyperlipidemia - ICD9: 272.2, ICD10: E78.2 - Controlled - Continue current medications - Counseled on healthy diet and regular exercise - COMPREHENSIVE METABOLIC PANEL - LIPID PANEL, FASTING 5. 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 - ICD9: 414.01, ICD10: I25.10 - Cont f/u with Cardio - Continue current medication regimen. - LIPID PANEL, FASTING 6. Smoker - ICD9: 305.1, ICD10: F17.200 - Cessation encouraged. - Physiologic and physical aspects of tobacco addiction as well as strategies for quitting were discussed. - Counseling was given focusing on the harmful effects of this addiction especially given the patient's medical condition(s) which will be worsened because of the chemicals in tobacco. 7. Pulmonary nodules - ICD9: 793.19, ICD10: R91.8 - Cont f/u with Pulm 8. Elevated PSA - ICD9: 790.93, ICD10: R97.20 - Stable; slight decrease - Cont to monitor 9. Benign prostatic hyperplasia without lower urinary tract symptoms - ICD9: 600.00, ICD10: N40.0 - Stable with use of medication 10. Screening for depression - ICD9: V79.0, ICD10: Z13.31 - Negative - DEPRESSION SCREENING 11. Encounter for screening examination for other mental health and behavioral disorders - ICD9: V79.8, ICD10: Z13.39 - Negative - ANXIETY SCREENING 6 mo f/u with fasting labs. I agree with the Chief Complaint, ROS, and Past Histories independently gathered by the clinical family support coordinator and the remaining scribed note accurately describes my personal service to the patient. Medical Decision Making: Problems: Moderate: 2+ stable chronic illnesses Data: Unique test(s) ordered: 3+ Risk: Moderate: Drug management Medical Decision Making Level: 4 - Moderate Mark Ramirez MD The documentation for this note was completed by Aleisha Casillas MA acting as scribe for Mark Ramirez MD. November 22, 2024 8:01 AM. Aleisha Casillas MA documented in this encounter [facility] 11-22-2024 Note HNO ID: [id number] Author: MARK RAMIREZ MD Service: ? Author Type: Physician Type: Progress Notes Filed: 11/22/2024 08:34 Note Text: Chief Complaint Patient presents with: F/U 6 Month HPI Lorenzo Reis is a 69 year old male who presents here today for 6 month follow up. Smoking but trying to quit. Former 1 ppd smoker, now smoking 5-6 cigs per day. Denies any bowel, Gi, or urinary issues. Gets up once a night to urinate. Taking Proscar 5 mg daily. PSA lab monitored. Pt no longer follows with any urologists. HTN: Denies checking BP at home, no chest pains, dizziness, or SOB. Taking Effient 10 mg daily. Lipid/CAD/Glucose: Hx of elevated glucose, on no current medications at this time. Monitoring with routine labs. Follows with Cardio Dr. Peng. Had heart catheterization done on 06/05/24. Denies watching his diet, but eats whatever his makes. Denies any exercise, but stays active still working 50 hours a week. Taking Lipitor 80 mg daily and Zetia 10 mg daily. Thyroid: Taking Synthroid 175 mcg daily. Feels stable on current dosage, denies any missed dosages. COPD: Stage 3 Severe; Smoker; follows with Pulm Dr. Glaser. Had PFT testing done. Currently trying to quit smoking on his own, was given Chantix but decided to try to quit on his own. Former 1 ppd smoker, now down to 5-6 cigarettes per day. Currently using Trelegy Ellipta 100-62.5-25 mcg 1 puff daily and Proventil HFA 90 mcg 2-4 puffs every 6 hours prn. Rare use of rescue inhaler. Feels adding the inhaler does help the breathing some. HM - Shingles vaccine through Pharmacy due to Medicare Insurance. Does have Adv Dir/Living Will. Anxiety/Depression screening completed, negative. Declines Covid booster at this time. Past medical history, appointments, medications, allergies reviewed. Previous Medical History PAST MEDICAL HISTORY Diagnosis Date Acute pulmonary embolism (HCC) 06/2020 unknown cause; pt on Eliquis Benign neoplasm of rectum and anal canal CAD (coronary artery disease) s/p stents COPD (chronic obstructive pulmonary disease) (HCC) History of peptic ulcer disease Pure hypercholesterolemia Snoring Tobacco use Unspecified hypothyroidism Previous Surgical History PAST SURGICAL HISTORY Procedure Laterality Date COLONOSCOPY FLX DX W/COLLJ SPEC WHEN PFRMD 06/16/2009 Colonoscopy COLONOSCOPY FLX DX W/COLLJ SPEC WHEN PFRMD 08/05/2016 Colonoscopy COLONOSCOPY FLX DX W/COLLJ SPEC WHEN PFRMD 02/15/2018 multiple adenomatous polyps, repeat in 3 years COLONOSCOPY FLX DX W/COLLJ SPEC WHEN PFRMD 12/23/2020 COLSC FLX W/RMVL OF TUMOR POLYP LESION SNARE TQ 10/21/2006 Large polyp at 50cm, 3 small sessile polyps in low rectosigmoid COLSC FLX W/RMVL OF TUMOR POLYP LESION SNARE TQ 06/25/2011 polyp in rectum DIAGNOSIS/HISTORY left 5th finger, laceration repair HERNIA REPAIR HX PAST SURGICAL HISTORY OF Right 1979 right shoulder Dislocated collar bone, ORIF Dr. Kilgore PAST SURGICAL HISTORY OF N/A 08/20/2020 Prostate biopsy PERCUTANEOUS CORONARY INTERVENTION Bilateral 09/23/2021 Left circumflex and RCA RPR PRIMARY OPEN/PRQ RUPTURED ACHILLES W/GRAFT Right 2018 RPR UMBILICAL HRNA 5 YRS/> REDUCIBLE 07/15/2009 with mesh Family History FAMILY HISTORY Problem Relation Age of Onset Alzheimer's Disease Mother Coronary Artery Disease Father [place] Prostate Cancer Father Colon Cancer Father Heart disease Brother Patient Allergies ALLERGIES Allergen Reactions Bees Swelling Pt has been through desensitization. Current Medications Current Outpatient Medications on File Prior to Visit Medication Sig fdqehjlbill-crronvoxx-gdykdned (TRELEGY ELLIPTA) 100-62.5-25 mcg inhalation powder Inhale 1 Puff as instructed once daily. varenicline (CHANTIX) 1 mg tablet Take 0.5 tablets by mouth once daily for 3 days, THEN 0.5 tablets two times a day for 4 days, THEN 1 tablet two times a day for 23 days. varenicline (CHANTIX) 1 mg tablet Take 1 tablet by mouth two times a day. Patient should start on October 17, 2024. albuterol HFA (PROVENTIL HFA, VENTOLIN HFA) 90 mcg/actuation inhaler Shake well then inhale 2 to 4 puffs as instructed every 6 hours as needed for wheezing/shortness of breath. ezetimibe (ZETIA) 10 mg tablet Take 1 tablet by mouth once daily. prasugrel (EFFIENT) 10 mg tab Take 1 tablet by mouth once daily. Start with 60 mg (6 tablets) loading dose after you stop brilinta, then continue with 1 tablet (10 mg) once daily thereafter. finasteride (PROSCAR) 5 mg tablet Take 1 tablet by mouth once daily. atorvastatin (LIPITOR) 80 mg tablet Take 1 tablet by mouth daily at bedtime. levothyroxine (SYNTHROID) 175 mcg tablet Take 1 tablet by mouth once daily. Take on empty stomach. For thyroid acetaminophen (TYLENOL) 325 mg tablet Take 2 tablets by mouth every 4 hours as needed for pain or fever (specify). No current facility-administered medications on file prior to visit. Social (more content not included)... [facility] 11-13-2024 Telephone encounter Note MEREDITH 09/17/24 Patient phones requesting refills as follows: Requested Prescriptions Pending Prescriptions Disp Refills varenicline (CHANTIX) 1 mg tablet [Pharmacy Med Name: VARENICLINE 1 MG TABLET] 56 tablet Sig: TAKE 0.5 TABLETS BY MOUTH ONCE DAILY FOR 3 DAYS, THEN 0.5 TABLETS TWO TIMES A DAY FOR 4 DAYS, THEN 1 TABLET TWO TIMES A DAY FOR 23 DAYS. Please review and advise. Amy Lomas LPN [facility] 11-13-2024 Miscellaneous Notes MEREDITH 09/17/24 Patient phones requesting refills as follows: Requested Prescriptions Pending Prescriptions Disp Refills varenicline (CHANTIX) 1 mg tablet [Pharmacy Med Name: VARENICLINE 1 MG TABLET] 56 tablet Sig: TAKE 0.5 TABLETS BY MOUTH ONCE DAILY FOR 3 DAYS, THEN 0.5 TABLETS TWO TIMES A DAY FOR 4 DAYS, THEN 1 TABLET TWO TIMES A DAY FOR 23 DAYS. Please review and advise. Amy Lomas LPN documented in this encounter [facility] 11-09-2024 Note HNO ID: [id number] Author: MARY VALDES RT(Kale) Service: Radiology Author Type: Technologist Type: Progress Notes Filed: 11/09/2024 09:37 Note Text: Radiology Service Progress Note PATIENT NAME: Lorenzo Reis DATE OF SERVICE: November 09, 2024 TIME: 9:36 AM PATIENT IDENTITY VERIFICATION COMPLETED USING TWO (2) IDENTIFIERS: Name and Date of confirmed by patient verbally. FALL SCREENING: Has the patient had 2 falls in the last year or 1 fall with injury or currently using an Ambulatory Assistive Device (Walker, Cane, Wheelchair, Crutches, etc.)? No PATIENT GENDER DATA: Assigned male at PATIENT RELEVANT IMPLANT DATA REVIEWED: Not Applicable PATIENT PRESENTS WITH AN IMPLANTABLE OR ATTACHED FINANCIAL BUSINESS ANALYST: No RADIOLOGY DEPARTMENT: General X-ray: Exam(s) Completed: GI/ Procedure(s): Esophogram with barium contrast PERIPHERAL IV DATA: Not applicable SIGNED BY: RT Mira(R) November 09, 2024 9:36 AM [facility] 10-29-[address] Melissa Gongora Medical Clearance for Dental Treatment received and placed in Dr Hawthorne's basket for review. [facility] 10-29-[address] Melissa Gongora Medical Clearance for Dental Treatment received and placed in Dr Hawthorne'katya basket for review. documented in this encounter [facility] 09-24-2024 Telephone encounter Note Left voicemail regarding results of overnight oxygen test. 9 hours of testing time with 7 hours 25 minutes of saturation less than 88%. Lowest oxygen saturation 69%. Instructed patient to call back or send MyChart message agreeing to nocturnal oxygen. [facility] 09-24-2024 Miscellaneous Notes Left voicemail regarding results of overnight oxygen test. 9 hours of testing time with 7 hours 25 minutes of saturation less than 88%. Lowest oxygen saturation 69%. Instructed patient to call back or send MyChart message agreeing to nocturnal oxygen. documented in this encounter [facility] 09-17-2024 History of Present illness Narrative Images from the original note were not included. . [facility] Note Patient name: Lorenzo Reis PCP: Mark Ramirez MD CC: COPD HPI: Lorenzo Reis 69 year old male current > 50 pack year smoker with PMH significant for hypothyroidism, HLD, h/o PE, CAD s/p stents, PUD, lung nodules seen in lung cancer screening clinic and being referred for evaluation of COPD. Respiratory symptoms consists of dyspnea on exertion, worse with exposure to cold air. He has cough productive of mostly clear mucus. Coughing can occur throughout the day. No nocturnal awakenings. Denies any wheezing. He has had an albuterol inhaler available for the past several years which does seem to help his dyspnea. His notes that he has some disordered breathing at night but no significant apneas and no significant snoring. Had issues with choking and possible aspiration. No GERD symptoms. He is a pack-a-day smoker with history of smoking cessation for at least a year in the past. He has used Chantix in the past without side effects and success. DATA: PFT 10/2024: Spirometry shows moderately severe obstruction with improvement in FVC postbronchodilator lung volumes show hyperinflation and air trapping and diffusing capacity is normal Labs: Component Ref Range & Units 3 mo ago (05/25/24) WBC 3.70 - 11.00 k/uL 7.39 RBC 4.20 - 6.00 m/uL 5.06 Hemoglobin 13.0 - 17.0 g/dL 15.2 Hematocrit 39.0 - 51.0 % 48.2 MCV 80.0 - 100.0 fL 95.3 MCH 26.0 - 34.0 pg 30.0 MCHC 30.5 - 36.0 g/dL 31.5 RDW-CV 11.5 - 15.0 % 13.0 Platelet Count 150 - 400 k/uL 186 MPV 9.0 - 12.7 fL 10.5 Neutrophils % % 58.9 Abs Neut 1.45 - 7.50 k/uL 4.35 Lymphocytes % % 30.2 Abs Lymph 1.00 - 4.00 k/uL 2.23 Monocytes % % 7.3 Abs Victoria <0.87 k/uL 0.54 Eosinophils % % 2.7 Abs Eosin <0.46 k/uL 0.20 Basophils % % 0.5 Abs Baso <0.11 k/uL 0.04 Immature Granulocytes % % 0.4 Abs Immature Gran <0.10 k/uL 0.03 NRBC /100 WBC 0.0 Absolute nRBC <0.01 k/uL <0.01 Diff Type Auto Imaging / Diagnostic Studies: DATE OF EXAM: Aug 13 2024 8:19AM [facility] 0562 - CT LUNG SCREEN WO IVCON / COMPARISON: Prior screening dated 12/02/2022 RESULT: Are nodules present? Yes, 1-5 nodules Lung nodule comments: 5 mm left fissural nodule (173) unchanged. 4 mm right fissural nodule (150) unchanged. 3 mm left upper lobe nodule (70) unchanged. 4 mm subpleural left upper lobe nodule (51) unchanged. Other findings: Cholelithiasis. Severe coronary calcifications. Degenerative changes of the thoracic spine. Posterior left rib chronic deformities. Right shoulder hardware. Saber-sheath tracheal morphology with diffuse bronchial thickening and minimal upper lobe emphysema. Incidental coronary calcium as automatically processed and calculated using AI: Total Coronary Calcium Score = [100+] Agatston Units Percentile Rank (age and gender matched relative to reference population): [75th-100th] percentile* [* [email or web address]] IMPRESSION: LungRADS category: 2 Review of images shows some minimal upper lobe emphysema, scattered subpulmonary nodules and bronchial wall thickening PAST MEDICAL HISTORY Diagnosis Date Acute pulmonary embolism (HCC) 06/2020 unknown cause; pt on Eliquis Benign neoplasm of rectum and anal canal CAD (coronary artery disease) s/p stents COPD (chronic obstructive pulmonary disease) (HCC) History of peptic ulcer disease Pure hypercholesterolemia Snoring Tobacco use Unspecified hypothyroidism ALLERGIES Allergen Reactions Bees Swelling Pt has been through desensitization. albuterol HFA (PROVENTIL HFA, VENTOLIN HFA) 90 mcg/actuation inhaler Shake well then inhale 2 to 4 puffs as instructed every 6 hours as needed for wheezing/shortness of breath. ezetimibe (ZETIA) 10 mg tablet Take 1 tablet by mouth once daily. finasteride (PROSCAR) 5 mg tablet Take 1 tablet by mouth once daily. atorvastatin (LIPITOR) 80 mg tablet Take 1 tablet by mouth daily at bedtime. levothyroxine (SYNTHROID) 175 mcg tablet Take 1 tablet by mouth once daily. Take on empty stomach. For thyroid rxefnzlwqwf-ajcdqztgg-fylltgpi (TRELEGY ELLIPTA) 100-62.5-25 mcg inhalation powder Inhale 1 Puff as instructed once daily. varenicline (CHANTIX) 1 mg tablet Take 0.5 tablets by mouth once daily for 3 days, THEN 0.5 tablets two times a day for 4 days, THEN 1 tablet two times a day for 23 days. [START ON 10/17/2024] varenicline (CHANTIX) 1 mg tablet Take 1 tablet by mouth two times a day. Patient should start on October 17, 2024. prasugrel (EFFIENT) 10 mg tab Take 1 tablet by mouth once daily. Start with 60 mg (6 tablets) loading dose after you stop brilinta, then continue with 1 tablet (10 mg) once daily thereafter. acetaminophen (TYLENOL) 325 mg tablet Take 2 tablets by mouth every 4 hours as needed for pain or fever (specify). Social History Tobacco Use Smoking status: Every Day Current packs/day: 1.00 Average packs/day: 1 pack/day for 54.2 years (54.2 ttl pk-yrs) Types: Cigarettes Start date: 1970 Smokeless tobacco: Never Vaping Use Vaping status: Never Used Substance Use Topics Alcohol use: Not Currently Drug use: No [place] Pets: Dog FAMILY HISTORY Problem Relation Age of Onset Alzheimer's Disease Mother Coronary Artery Disease Father NC Prostate Cancer Father Colon Cancer Father Heart disease Brother PAST SURGICAL HISTORY Procedure Laterality Date COLONOSCOPY FLX DX W/COLLJ SPEC WHEN PFRMD 06/16/2009 Colonoscopy COLONOSCOPY FLX DX W/COLLJ SPEC WHEN PFRMD 08/05/2016 Colonoscopy COLONOSCOPY FLX DX W/COLLJ SPEC WHEN PFRMD 02/15/2018 multiple adenomatous polyps, repeat in 3 years COLONOSCOPY FLX DX W/COLLJ SPEC WHEN PFRMD 12/23/2020 COLSC FLX W/RMVL OF TUMOR POLYP LESION SNARE TQ 10/21/2006 Large polyp at 50cm, 3 small sessile polyps in low rectosigmoid COLSC FLX W/RMVL OF TUMOR POLYP LESION SNARE TQ 06/25/2011 polyp in rectum DIAGNOSIS/HISTORY left 5th finger, laceration repair HERNIA REPAIR HX PAST SURGICAL HISTORY OF Right 1979 right shoulder Dislocated collar bone, ORIF Dr. Kilgore PAST SURGICAL HISTORY OF N/A 08/20/2020 Prostate biopsy PERCUTANEOUS CORONARY INTERVENTION Bilateral 09/23/2021 Left circumflex and RCA RPR PRIMARY OPEN/PRQ RUPTURED ACHILLES W/GRAFT Right 2018 RPR UMBILICAL HRNA 5 YRS/> REDUCIBLE 07/15/2009 with mesh PMH, Social history, family history and surgical history reviewed and updated in EMR REVIEW OF SYSTEMS: CONSTITUTIONAL: No fevers, chills, nightsweats, unintended weight loss HEENT: Denies nasal congestion/sinus symptoms, postnasal drip EYES: No visual changes n. CARDIOVASCULAR: No chest pain, palpitations, orthopnea. Edema PULM: See HPI GI: Dysphagia and choking. No problematic reflux. NEURO: No balance problems, peripheral weakness/paresthesias or numbness of concern. MUSC-SKEL: No joint pain, swelling, or erythema. PSY: No concerns regarding depression, anxiety or INTEGUMENTARY: No new skin changes, rashes, eczema PHYSICAL EXAMINATION: BP 128/76 Pulse 65 Resp 18 Wt 205 lb (93.0kg) SpO2 91% General Appearance: Age-appropriate male, NAD. Skin: Skin color, texture, turgor normal, no suspicious rashes or lesions. Head: Normocephalic, no masses, lesions, tenderness or abnormalities. Eyes: Sclera, conjunctiva normal. Oropharynx: Poor dentition, no oral lesions. Neck: No masses or adenopathy. Lungs: Not labored, hyperresonant to percussion, no crackles, inspiratory squeaks right upper lobe. Heart: Regular rate and rhythm, no murmurs. Extremities: Edema, no clubbing. Assessment/Plan: 1. Moderately severe COPD -Changed inhaled therapy to Trelegy Ellipta with continued use of albuterol as needed -Can cessation strongly encouraged -Nocturnal oximetry assessment 2. Cigarette smoker -Cessation strongly encouraged and we discussed this today. He will restart Chantix -Continue lung cancer screening 3. Oropharyngeal dysphagia -Esophagram -Needs to discuss with his primary care physician I spent a total of 47 minutes on the date of the service which included preparing to see the patient, [id number] patient care, completing clinical documentation, obtaining and/or reviewing separately obtained history, performing a medically appropriate examination, counseling and educating the patient/family/caregiver, ordering medications, tests, or procedures, and independently interpreting results (not separately reported). Twila Glaser MD [facility] documented in this encounter [facility] 09-17-2024 Note HNO ID: [id number] Author: TWILA GLASER MD Service: ? Author Type: Physician Type: Progress Notes Filed: 09/17/2024 10:45 Note Text: . [facility] Note Patient name: Lorenzo Reis PCP: Mark Ramirez MD CC: COPD HPI: Lorenzo Reis 69 year old male current > 50 pack year smoker with PMH significant for hypothyroidism, HLD, h/o PE, CAD s/p stents, PUD, lung nodules seen in lung cancer screening clinic and being referred for evaluation of COPD. Respiratory symptoms consists of dyspnea on exertion, worse with exposure to cold air. He has cough productive of mostly clear mucus. Coughing can occur throughout the day. No nocturnal awakenings. Denies any wheezing. He has had an albuterol inhaler available for the past several years which does seem to help his dyspnea. His notes that he has some disordered breathing at night but no significant apneas and no significant snoring. Had issues with choking and possible aspiration. No GERD symptoms. He is a pack-a-day smoker with history of smoking cessation for at least a year in the past. He has used Chantix in the past without side effects and success. DATA: PFT 10/2024: Spirometry shows moderately severe obstruction with improvement in FVC postbronchodilator lung volumes show hyperinflation and air trapping and diffusing capacity is normal Labs: Component Ref Range AND Units 3 mo ago (05/25/24) WBC 3.70 - 11.00 k/uL 7.39 RBC 4.20 - 6.00 m/uL 5.06 Hemoglobin 13.0 - 17.0 g/dL 15.2 Hematocrit 39.0 - 51.0 % 48.2 MCV 80.0 - 100.0 fL 95.3 MCH 26.0 - 34.0 pg 30.0 MCHC 30.5 - 36.0 g/dL 31.5 RDW-CV 11.5 - 15.0 % 13.0 Platelet Count 150 - 400 k/uL 186 MPV 9.0 - 12.7 fL 10.5 Neutrophils % % 58.9 Abs Neut 1.45 - 7.50 k/uL 4.35 Lymphocytes % % 30.2 Abs Lymph 1.00 - 4.00 k/uL 2.23 Monocytes % % 7.3 Abs Victoria <0.87 k/uL 0.54 Eosinophils % % 2.7 Abs Eosin <0.46 k/uL 0.20 Basophils % % 0.5 Abs Baso <0.11 k/uL 0.04 Immature Granulocytes % % 0.4 Abs Immature Gran <0.10 k/uL 0.03 NRBC /100 WBC 0.0 Absolute nRBC <0.01 k/uL <0.01 Diff Type Auto Imaging / Diagnostic Studies: DATE OF EXAM: Aug 13 2024 8:19AM [facility] 0562 - CT LUNG SCREEN WO IVCON / COMPARISON: Prior screening dated 12/02/2022 RESULT: Are nodules present? Yes, 1-5 nodules Lung nodule comments: 5 mm left fissural nodule (173) unchanged. 4 mm right fissural nodule (150) unchanged. 3 mm left upper lobe nodule (70) unchanged. 4 mm subpleural left upper lobe nodule (51) unchanged. Other findings: Cholelithiasis. Severe coronary calcifications. Degenerative changes of the thoracic spine. Posterior left rib chronic deformities. Right shoulder hardware. Saber-sheath tracheal morphology with diffuse bronchial thickening and minimal upper lobe emphysema. Incidental coronary calcium as automatically processed and calculated using AI: Total Coronary Calcium Score = [100+] Agatston Units Percentile Rank (age and gender matched relative to reference population): [75th-100th] percentile* [* [email or web address]] IMPRESSION: LungRADS category: 2 Review of images shows some minimal upper lobe emphysema, scattered subpulmonary nodules and bronchial wall thickening PAST MEDICAL HISTORY Diagnosis Date Acute pulmonary embolism (HCC) 06/2020 unknown cause; pt on Eliquis Benign neoplasm of rectum and anal canal CAD (coronary artery disease) s/p stents COPD (chronic obstructive pulmonary disease) (HCC) History of peptic ulcer disease Pure hypercholesterolemia Snoring Tobacco use Unspecified hypothyroidism ALLERGIES Allergen Reactions Bees Swelling Pt has been through desensitization. albuterol HFA (PROVENTIL HFA, VENTOLIN HFA) 90 mcg/actuation inhaler Shake well then inhale 2 to 4 puffs as instructed every 6 hours as needed for wheezing/shortness of breath. ezetimibe (ZETIA) 10 mg tablet Take 1 tablet by mouth once daily. finasteride (PROSCAR) 5 mg tablet Take 1 tablet by mouth once daily. atorvastatin (LIPITOR) 80 mg tablet Take 1 tablet by mouth daily at bedtime. levothyroxine (SYNTHROID) 175 mcg tablet Take 1 tablet by mouth once daily. Take on empty stomach. For thyroid wverqivmkmi-zvmkpczis-qznvnjqk (TRELEGY ELLIPTA) 100-62.5-25 mcg inhalation powder Inhale 1 Puff as instructed once daily. varenicline (CHANTIX) 1 mg tablet Take 0.5 tablets by mouth once daily for 3 days, THEN 0.5 tablets two times a day for 4 days, THEN 1 tablet two times a day for 23 days. [START ON 10/17/2024] varenicline (CHANTIX) 1 mg tablet Take 1 tablet by mouth two times a day. Patient should start on October 17, 2024. prasugrel (EFFIENT) 10 mg tab Take 1 tablet by mouth once daily. Start with 60 mg (6 tablets) loading dose after you stop brilinta, then continue with 1 tablet (10 mg) once daily thereafter. acetaminophen (TY (more content not included)... [facility] 08-31-2024 Telephone encounter Note Phone call to patient's and discussed results and recommendation to consult pulmonary medicine. We also discussed smoking cessation program and Aculaser. She will consider this and let us know if they need any further assistance. [facility] 08-31-2024 Miscellaneous Notes Phone call to patient's and discussed results and recommendation to consult pulmonary medicine. We also discussed smoking cessation program and Aculaser. She will consider this and let us know if they need any further assistance. Krys returned call and states they read the Likva message. She has further questions asking if Madina could call her back. also states she needs someone to stress to her he needs to stop smoking. Left message for pt will call back regarding results. My Chart message placed. Madina Majano APRN.CNP Patient's calls and is asking about testing results that patient had done on 08/21/2024. Please review and advise, Sabrina Lewis RN documented in this encounter [facility] 08-28-2024 Telephone encounter Note Krys returned call and states they read the Likva message. She has further questions asking if Madina could call her back. also states she needs someone to stress to her he needs to stop smoking. [facility] 08-24-2024 Telephone encounter Note Left message for pt will call back regarding results. My Chart message placed. Madina Majano APRN.WATER PUMP INSTALLER [facility] 08-23-2024 Telephone encounter Note Patient's calls and is asking about testing results that patient had done on 08/21/2024. Please review and advise, Sabrina Lewis RN [facility] 08-21-2024 Note HNO ID: [id number] Author: NICOLE HOGUE RPFT Service: ? Author Type: Respiratory Therapist Type: Progress Notes Filed: 08/21/2024 09:10 Note Text: PULM FUNCTION: Provider: Madina Majano APRN.CNP Assisting Tech: Nicole Hogue RPFT Spirometry w/BD: 1 DLCO: 1 LV - Box: 1 [facility] 08-21-2024 History of Present illness Narrative PULM FUNCTION: Provider: Madina Majano APRN.CNP Assisting Tech: PetAkila aguilara, RPFT Spirometry w/BD: 1 DLCO: 1 LV - Box: 1 documented in this encounter [facility] 08-13-2024 Instructions Madina Majano APRN.WATER PUMP INSTALLER - 08/13/2024 3:11 PM EST SMOKING CESSATION EDUCATION Why do I need to know about the health risks of cigarette smoking? Cigarette smoking is the most preventable cause of illness and . Cigarettes are filled with nicotine, which acts like a poison in your body. What are the health risks of cigarette smoking? You may have breathing problems that make it difficult for you to do daily activities or play sports. You have a higher risk of bone fractures because smoking can cause osteoporosis (brittle bones). If you fall asleep with a lit cigarette, you can start a fire. Cigarette smoking can also cause the following health problems: Cancer: Heart and blood vessel disease: The nicotine in tobacco causes an increase in your heart rate and blood pressure. Nicotine also causes your blood vessels to narrow. This can lead to blood clots in your heart or brain and cause a heart attack or stroke. Cigarette smoke has carbon monoxide in it. This can decrease the amount of oxygen flowing to your heart and other organs. Lung disease: The chemicals in cigarette smoke can damage your lungs. This causes a buildup of dirt and waste products in your lungs. Many people who smoke have a long-term cough as a result. Cigarette smoking may also cause long-term lung infections or diseases, such as asthma, emphysema, or chronic bronchitis. You are also at higher risk for respiratory illnesses, such as colds or pneumonia. Gastrointestinal disease: Cigarette smoking increases the amount of acid in your stomach. This can cause an ulcer or gastric reflux. Women and smoking: You have a higher risk of heart and blood vessel disease if you smoke and take control pills. The risk is more serious is you are 35 years or older. Why should I quit smoking? Your health will improve and your risks for many diseases will decrease. Your breath, clothes, and hair will no longer smell like smoke. Tobacco will no longer stain your teeth. Tobacco smoke is dangerous to others. If you quit, you will decrease the risks to those around you, such as your children or family members. Where can I go for support and more information? There are many ways to quit smoking. Some may work better for you than others. Your caregiver can help you find the best plan to quit. Smokefree.gov Web Address: www.smokefree.gov Phone: [employer] Web Address: www.lung.org [address] [place] , [place] Phone: Phone: [facility] Smoking Cessation Program [email or web address] Lung nodule/s: all previously seen nodule/s have not changed in size or characteristic/resolved and there are no new nodules of concern. Please return in one year for the following 2 visits on the same day: Annual low-dose CT chest Lung cancer screening Provider visit. This recommendation is subject to change pending the final report from radiology. I will notify you of the final radiology report recommendations when available by FAMOCOt message, letter, or phone call. We will also notify your referring provider/PCP of the results and recommendations. If you didn t schedule this before you left the office or need to reschedule, you can call in to schedule it anytime: [facility] [place] [facility] [phone] [facility] [phone] All other [facility] locations [phone] Feel free to reach out for any questions or concerns, Madina Majano APRN.CNP Lung Cancer Screening [phone] documented in this encounter [facility] 08-13-2024 Note HNO ID: [id number] Author: MADINA MAJANO APRN.CNP Service: ? Author Type: Nurse Practitioner Type: Progress Notes Filed: 08/13/2024 15:11 Note Text: LUNG SCREENING ANNUAL VISIT PRIMARY CARE PHYSICIAN: Mark Ramirez MD PULMONARY PROVIDER: none Results will be communicated via letter or electronic record if applicable. Visit Delivery: In Person Patient Visit Type: established Current or Ex-smoker? [Current Exam Type: annual LDCT Number of Pack Years: 54 Current smoker (=0) The patient's smoking history is similar to prior year shared decision visit. The reason for the discrepancy is NA Chief Complaint: Established patient in lung cancer screening program here for annual follow-up. Impression / Recommendations Lorenzo Reis presents for annual lung cancer screening annual exam and nodule evaluation. Plan: Indeterminate pulmonary nodules: Previously identified nodules appear stable and no new nodules of concern were seen on the exam. Low dose CT Scan to be repeated in one year. Plan subject to change pending final radiology report and recommendations. Nature of the lung nodule(s) and the options for further evaluation discussed in detail with patient. Lorenzo Reis expressed understanding and is in agreement with plan. 2. Encounter for screening for malignant neoplasm of respiratory organs I have determined that the patient is eligible for continued low dose CT screening based on age, absence of signs or symptoms of lung cancer, smoking history and total pack years. The patient was counseled on the importance of adherence to annual LDCT lung cancer screening, impact of comorbidities and ability or willingness to undergo diagnosis and treatment. The patient understands and feels comfortable with it: Yes. 3. Nicotine Dependence The patient was counseled on the importance of smoking cessation if current smoker and, if appropriate, offered additional tobacco cessation counseling services - Smoking Cessation Counseling. SMOKING CESSATION COUNSELING Smoking cessation methods including Behavior Modification were discussed with the patient and assistance offered. The medical conditions adversely affected by cigarette use include:COPD, Emphysema, and Lung Cancer. Counseled on benefits of quitting smoking, recommended cessation or reduction to prevent development and/or progression of emphysema. The patient is currently not ready to quit. I personally spent 1 minutes in counseling. The time spent in smoking cessation counseling is exclusive of any other counseling during this visit. 4. Shortness of breath Recommended continued follow up with cardiology. PFT ordered and will determine follow up after. - SPIROMETRY WITH DILATOR IF OBSTRUCTED; Future - LUNG VOLUMES; Future - LUNG DIFFUSION CAPACITY (DLCO); Future - albuterol HFA (PROVENTIL HFA, VENTOLIN HFA) 90 mcg/actuation inhaler; Shake well then inhale 2 to 4 puffs as instructed every 6 hours as needed for wheezing/shortness of breath. Dispense: 3 Each; Refill: 3 I spent a total of 30 minutes on the date of the service which included preparing to see the patient, [id number] patient care, completing clinical documentation, performing a medically appropriate examination, counseling and educating the patient/family/caregiver, ordering medications, tests, or procedures, communicating with other HCPs (not separately reported), independently interpreting results (not separately reported), communicating results to the patient/family/caregiver, and care coordination (not separately reported). Madina Majano APRN.[facility] August 13, 2024 9:06 AM History of Present Illness: Lorenzo Reis is a 69 year old male who is presenting today for annual lung cancer screening LDCT and nodule surveillance/management. Patient has multiple nodules found on previous lung cancer screening LDCT. Last LDCT was performed on 12/02/2022 and was LUNG RADS Category 2. Previous potentially significant incidental findings on imaging: Severe coronary artery calcifications-hx of PCI stents. Patient is a current smoker with a 54 pack year history. Patient is currently still smoking cigarettes daily. Patient will continue to be eligible for lung cancer screening until age 77. The patient does not have any symptoms or signs of lung cancer. Patient has increased SOB with their daily activity-at work, carrying wood in. No wheezing or dyspnea. Patient denies feeling of chest tightness/congestion in the chest. Patient does not have a new or concerning cough, and denies hemoptysis. Patient does have a chronic daily cough-clear phlegm. Denies regular or recent fevers/chills. Patient does not have any significant unintentional weight loss. Patient denies having any respiratory infections or COVID-19 in t (more content not included)... [facility] 08-13-2024 History of Present illness Narrative Images from the original note were not included. LUNG SCREENING ANNUAL VISIT PRIMARY CARE PHYSICIAN: Mark Ramirez MD PULMONARY PROVIDER: none Results will be communicated via letter or electronic record if applicable. Visit Delivery: In Person Patient Visit Type: established Current or Ex-smoker? [Current Exam Type: annual LDCT Number of Pack Years: 54 Current smoker (=0) The patient's smoking history is similar to prior year shared decision visit. The reason for the discrepancy is NA Chief Complaint: Established patient in lung cancer screening program here for annual follow-up. Impression / Recommendations Lorenzo Reis presents for annual lung cancer screening annual exam and nodule evaluation. Plan: Indeterminate pulmonary nodules: Previously identified nodules appear stable and no new nodules of concern were seen on the exam. Low dose CT Scan to be repeated in one year. Plan subject to change pending final radiology report and recommendations. Nature of the lung nodule(s) and the options for further evaluation discussed in detail with patient. Lorenzo Reis expressed understanding and is in agreement with plan. 2. Encounter for screening for malignant neoplasm of respiratory organs I have determined that the patient is eligible for continued low dose CT screening based on age, absence of signs or symptoms of lung cancer, smoking history and total pack years. The patient was counseled on the importance of adherence to annual LDCT lung cancer screening, impact of comorbidities and ability or willingness to undergo diagnosis and treatment. The patient understands and feels comfortable with it: Yes. 3. Nicotine Dependence The patient was counseled on the importance of smoking cessation if current smoker and, if appropriate, offered additional tobacco cessation counseling services - Smoking Cessation Counseling. SMOKING CESSATION COUNSELING Smoking cessation methods including Behavior Modification were discussed with the patient and assistance offered. The medical conditions adversely affected by cigarette use include:COPD, Emphysema, and Lung Cancer. Counseled on benefits of quitting smoking, recommended cessation or reduction to prevent development and/or progression of emphysema. The patient is currently not ready to quit. I personally spent 1 minutes in counseling. The time spent in smoking cessation counseling is exclusive of any other counseling during this visit. 4. Shortness of breath Recommended continued follow up with cardiology. PFT ordered and will determine follow up after. - SPIROMETRY WITH DILATOR IF OBSTRUCTED; Future - LUNG VOLUMES; Future - LUNG DIFFUSION CAPACITY (DLCO); Future - albuterol HFA (PROVENTIL HFA, VENTOLIN HFA) 90 mcg/actuation inhaler; Shake well then inhale 2 to 4 puffs as instructed every 6 hours as needed for wheezing/shortness of breath. Dispense: 3 Each; Refill: 3 I spent a total of 30 minutes on the date of the service which included preparing to see the patient, [id number] patient care, completing clinical documentation, performing a medically appropriate examination, counseling and educating the patient/family/caregiver, ordering medications, tests, or procedures, communicating with other HCPs (not separately reported), independently interpreting results (not separately reported), communicating results to the patient/family/caregiver, and care coordination (not separately reported). Madina Majano APRN.[facility] August 13, 2024 9:06 AM History of Present Illness: Lorenzo Reis is a 69 year old male who is presenting today for annual lung cancer screening LDCT and nodule surveillance/management. Patient has multiple nodules found on previous lung cancer screening LDCT. Last LDCT was performed on 12/02/2022 and was LUNG RADS Category 2. Previous potentially significant incidental findings on imaging: Severe coronary artery calcifications-hx of PCI stents. Patient is a current smoker with a 54 pack year history. Patient is currently still smoking cigarettes daily. Patient will continue to be eligible for lung cancer screening until age 77. The patient does not have any symptoms or signs of lung cancer. Patient has increased SOB with their daily activity-at work, carrying wood in. No wheezing or dyspnea. Patient denies feeling of chest tightness/congestion in the chest. Patient does not have a new or concerning cough, and denies hemoptysis. Patient does have a chronic daily cough-clear phlegm. Denies regular or recent fevers/chills. Patient does not have any significant unintentional weight loss. Patient denies having any respiratory infections or COVID-19 in the past few months. Does not use any maintenance inhaler for COPD. Using albuterol only if he has severe symptoms. RCA stent in the past, and currently ? some improvement in symptoms Modified Medical Research [place] Dyspnea Scale (MMRC) I get short of breath when hurrying on level ground or walking up a slight hill 1 Last 12 Encounter Wt Readings: Date: Wt: 08/13/2024 91.3 kg (201 lb 4.5 oz) 06/28/2024 91.2 kg (201 lb 1 oz) 05/26/2024 91.2 kg (201 lb) 05/25/2024 91.4 kg (201 lb 8 oz) 05/16/2024 92 kg (202 lb 13.2 oz) 12/26/2023 92.5 kg (204 lb) 11/24/2023 93.9 kg (207 lb 1.6 oz) 05/13/2023 89 kg (196 lb 4.8 oz) 11/30/2022 93.4 kg (206 lb) 11/12/2022 93.8 kg (206 lb 11.2 oz) 07/02/2022 87.1 kg (192 lb) 06/07/2022 87.1 kg (192 lb) Social History Tobacco Use: Types: Cigarettes Past Medical History: PAST MEDICAL HISTORY Diagnosis Date Acute pulmonary embolism (HCC) 06/2020 unknown cause; pt on Eliquis Benign neoplasm of rectum and anal canal History of peptic ulcer disease Pure hypercholesterolemia Snoring Tobacco use Unspecified hypothyroidism Family Hx: FAMILY HISTORY Problem Relation Age of Onset Alzheimer's Disease Mother Coronary Artery Disease Father [place] Prostate Cancer Father Colon Cancer Father Surgical Hx: PAST SURGICAL HISTORY Procedure Laterality Date COLONOSCOPY FLX DX W/COLLJ SPEC WHEN PFRMD 06/16/2009 Colonoscopy COLONOSCOPY FLX DX W/COLLJ SPEC WHEN PFRMD 08/05/2016 Colonoscopy COLONOSCOPY FLX DX W/COLLJ SPEC WHEN PFRMD 02/15/2018 multiple adenomatous polyps, repeat in 3 years COLONOSCOPY FLX DX W/COLLJ SPEC WHEN PFRMD 12/23/2020 COLSC FLX W/RMVL OF TUMOR POLYP LESION SNARE TQ 10/21/2006 Large polyp at 50cm, 3 small sessile polyps in low rectosigmoid COLSC FLX W/RMVL OF TUMOR POLYP LESION SNARE TQ 06/25/2011 polyp in rectum DIAGNOSIS/HISTORY left 5th finger, laceration repair HERNIA REPAIR HX PAST SURGICAL HISTORY OF Right 1980 right shoulder Dislocated collar bone, ORIF Dr. Kilgore PAST SURGICAL HISTORY OF N/A 08/20/2020 Prostate biopsy RPR PRIMARY OPEN/PRQ RUPTURED ACHILLES W/GRAFT Right 2018 RPR UMBILICAL HRNA 5 YRS/> REDUCIBLE 07/15/2009 with mesh Allergies: ALLERGIES Allergen Reactions Bees Swelling Pt has been through desensitization. Review Of Systems: See HPI for ROS All of the remainder systems were reviewed and negative. PHYSICAL EXAMINATION: BP 114/78 Pulse 89 Resp 20 Wt 201 lb 4.5 oz (91.3kg) SpO2 62% General appearance: well appearing, in no acute distress, and alert Skin: skin color, texture, turgor normal, no rashes or lesions Neck: Supple, no adenopathy; thyroid symmetric, normal size Respiratory: lungs clear to auscultation no wheezing or rhonchi Cardiovascular: Negative. RRR without murmur, gallop, or rubs. No ectopy Musculoskeletal: Extremities normal. No deformities, edema, or skin discoloration. Neuro: Oriented X 3 Data Review I have visually reviewed imaging and testing below CT imaging done today was reviewed and analyzed independently and compared to prior CT chest imaging by practitioner and awaiting radiology review. All previously noted lung nodules are stable. No new lung nodules are noted. Imaging * * *Final Report* * * DATE OF EXAM: Dec 02 2022 8:21AM [facility] 0562 - CT LUNG SCREEN [facility] / PROCEDURE REASON: multiple diagnoses * * * * Physician Interpretation * * * * EXAMINATION: CHEST CT WITHOUT CONTRAST (LOW-DOSE CT LUNG CANCER SCREENING PROTOCOL) CLINICAL HISTORY: Lung cancer LDCT screening ? absence of signs or symptoms of lung cancer. Nicotine dependence (cigarettes). Baseline (initial) Technique: Spiral CT acquisition of the chest from the thoracic inlet to the upper abdomen without contrast. MQ: CTLCS_6 Patient characteristics: * Yrxi-aj-Pvcyp: 1955; Age at exam: 67 years * Gender: Male * Lung Disease: Asymptomatic (no signs or symptoms of lung disease) * Number of Pack Years: 51 * Current smoker (=0) or Number of Years since Quit: 0 * Ordering provider and NPI: MADINA MAJANO [id number] * Interpreting radiologist and NPI: Charles [id number] Exam acquisition parameters: * Exam Date: 12/02/2022 8:21 AM * Site: [facility] * * CT System Bench Shear Operator: Siemens * CT System Model: Sensation * Tube Current-Time (mA-sec): 33 * Peak Voltage (kV): 120V * Scan Time (sec): 12.14 * Scan Volume (z-length, cm): -32.55 * Pitch: 0.75 * Slice Thickness (mm): 1.5 * CT Dose-Length Product: 111 mGy*cm * CT Dose Index: 2.55mGy * CT Dose Reduction Method: Automated exposure control(AEC) and iterative recon COMPARISON: Prior prior chest CT dated 09/20/2021 RESULT: Are nodules present? Yes, 1-5 nodules Lung nodule comments: 5 mm subpleural left upper lobe nodule (51) unchanged. 4 mm left upper lobe nodule (60) unchanged. 6 mm left lower lobe fissural nodule (176) unchanged. 4 mm right fissural nodule (63) unchanged. Several other scattered small nodules unchanged. No new or dominant nodules. Other findings: Cholelithiasis. Mild degenerative changes of the thoracic spine. Mild bronchial thickening and mild upper lobe emphysema. Tiny upper lobe predominant ill-defined nodular opacities likely smoking-related respiratory bronchiolitis. Severe coronary calcifications. Last CT Chest - Impression Only CT CHEST W IVCON PE Exam End: 09/20/2021 10:49 PM (Final result) Impression: IMPRESSION: No CT evidence of pulmonary embolism. Cholelithiasis. ... Last XR Chest - Impression Only XR CHEST 1V FRONTAL Exam End: 06/25/2022 7:22 PM (Final result) Impression: IMPRESSION: No acute radiographic abnormality. ... Pulmonary Function Testing: No textual results found for the specified procedure(s). documented in this encounter [facility] 08-13-2024 History of Present illness Narrative Radiology Service Progress Note PATIENT NAME: Lorenzo Reis DATE OF SERVICE: August 13, 2024 TIME: 1:53 PM PATIENT IDENTITY VERIFICATION COMPLETED USING TWO (2) IDENTIFIERS: Name and Date of confirmed by patient verbally. FALL SCREENING: Has the patient had 2 falls in the last year or 1 fall with injury or currently using an Ambulatory Assistive Device (Walker, Cane, Wheelchair, Crutches, etc.)? No PATIENT GENDER DATA: Assigned male at PATIENT RELEVANT IMPLANT DATA REVIEWED: Yes PATIENT PRESENTS WITH AN IMPLANTABLE OR ATTACHED FINANCIAL BUSINESS ANALYST: No RADIOLOGY DEPARTMENT: CT; Exam(s) Completed: Lung Screening PERIPHERAL IV DATA: Not applicable SIGNED BY: RT Doreen(Kale) August 13, 2024 1:53 PM documented in this encounter [facility] 08-13-2024 Note HNO ID: [id number] Author: OSWALD SY RT (R) Service: ? Author Type: Senior Office Assistant Type: Progress Notes Filed: 08/13/2024 13:53 Note Text: Radiology Service Progress Note PATIENT NAME: Lorenzo Reis DATE OF SERVICE: August 13, 2024 TIME: 1:53 PM PATIENT IDENTITY VERIFICATION COMPLETED USING TWO (2) IDENTIFIERS: Name and Date of confirmed by patient verbally. FALL SCREENING: Has the patient had 2 falls in the last year or 1 fall with injury or currently using an Ambulatory Assistive Device (Walker, Cane, Wheelchair, Crutches, etc.)? No PATIENT GENDER DATA: Assigned male at PATIENT RELEVANT IMPLANT DATA REVIEWED: Yes PATIENT PRESENTS WITH AN IMPLANTABLE OR ATTACHED FINANCIAL BUSINESS ANALYST: No RADIOLOGY DEPARTMENT: CT; Exam(s) Completed: Lung Screening PERIPHERAL IV DATA: Not applicable SIGNED BY: RT Doreen(Kale) August 13, 2024 1:53 PM [facility] 07-05-2024 History of Present illness Narrative FOLLOW UP VISIT - ENDOSCOPY Lorenzo Reis 1955 [id number] REFERRING PHYSICIAN: Judson Alves III [address] [facility] [id number] Lorenzo Reis is a patient I am following for colon cancer screening- hx of polyps. Dr. Alves performed lower endoscopy on 06/28/24. The patient was found to have Impression: - One small (4-6 mm) polyp in the ascending colon, removed with a cold snare. Resected and retrieved. - Small lipoma in the ascending colon. - Diverticulosis in the sigmoid colon. - Non-bleeding internal hemorrhoids. - The examination was otherwise normal. Pathology demonstrated: FINAL DIAGNOSIS A. Colon, ascending, polyp, biopsy: - Hyperplastic polyp. The patient notes no complaints since the procedure. VITALS: There were no vitals taken for this visit. General: patient is alert, cooperative, pleasant and in no acute distress On examination, the abdomen is benign. Assessment ASSESSMENT/PLAN: 1. Hyperplastic polyp of ascending colon - ICD9: 211.3, ICD10: K63.5 The operative findings and pathology report were reviewed with the patient, and the patient has had the opportunity to ask questions and have questions answered. If the patient notes any problems or changes in bowel function, the patient should contact me immediately. Otherwise I recommend follow up endoscopy in 5 years. HM updated and recall letter generated. Discussed treatment plan and patient voices understanding. Patient's questions answered appropriately. Medications and potential side effects were discussed and patient voices understanding. Return to the office as scheduled or as needed for worsening/no improvement. Sima Mays APRN.[employer] documented in this encounter [facility] 07-05-2024 Note HNO ID: [id number] Author: SIMA MAYS APRN.[employer] Service: ? Author Type: Nurse Practitioner Type: Progress Notes Filed: 07/05/2024 08:59 Note Text: FOLLOW UP VISIT - ENDOSCOPY Lorenzo Reis 1955 [id number] REFERRING PHYSICIAN: Judson Alves III [address] [facility] [address] Lorenzodaniel Scottse is a patient I am following for colon cancer screening- hx of polyps. Dr. Alves performed lower endoscopy on 06/28/24. The patient was found to have Impression: - One small (4-6 mm) polyp in the ascending colon, removed with a cold snare. Resected and retrieved. - Small lipoma in the ascending colon. - Diverticulosis in the sigmoid colon. - Non-bleeding internal hemorrhoids. - The examination was otherwise normal. Pathology demonstrated: FINAL DIAGNOSIS A. Colon, ascending, polyp, biopsy: - Hyperplastic polyp. The patient notes no complaints since the procedure. VITALS: There were no vitals taken for this visit. General: patient is alert, cooperative, pleasant and in no acute distress On examination, the abdomen is benign. Assessment ASSESSMENT/PLAN: 1. Hyperplastic polyp of ascending colon - ICD9: 211.3, ICD10: K63.5 The operative findings and pathology report were reviewed with the patient, and the patient has had the opportunity to ask questions and have questions answered. If the patient notes any problems or changes in bowel function, the patient should contact me immediately. Otherwise I recommend follow up endoscopy in 5 years. HM updated and recall letter generated. Discussed treatment plan and patient voices understanding. Patient's questions answered appropriately. Medications and potential side effects were discussed and patient voices understanding. Return to the office as scheduled or as needed for worsening/no improvement. Sima Mays APRN.[facility] 07-02-2024 Note HNO ID: [id number] Author: LUZ MAC RN Service: ? Author Type: Registered Nurse Type: Progress Notes Filed: 07/02/2024 16:42 Note Text: [facility] Telephonic Outreach Provider Action/FYI Contacted for: Routine Telephonic Outreach Contact made with patient: No, left message. Luz Mac RN July 02, 2024 4:42 PM [facility] 07-02-2024 History of Present illness Narrative [facility] Telephonic Outreach Provider Action/FYI Contacted for: Routine Telephonic Outreach Contact made with patient: No, left message. Luz Mac RN July 02, 2024 4:42 PM documented in this encounter [facility] 07-02-2024 Note Patient Outreach ([facility] LORENZO REIS ([id number]) 1955 M Date Time Provider Department 07/02/24 LUZ MAC During your visit today, we recorded the following information about you: Luz Mac RN 07/02/2024 4:42 PM Signed [facility] Telephonic Outreach Provider Action/FYI Contacted for: Routine Telephonic Outreach Contact made with patient: No, left message. Luz Mac RN July 02, 2024 4:42 PM Allergies As of Date: 07/02/2024 Noted Allergy Reaction BEES 10/14/2005 7 - Swelling Comments: Pt has been through desensitization. Date Reviewed: 06/28/2024 Reviewed by: Romina Velazquez RN - Fully Assessed Reason for Visit: Community Monitoring Outreach [Other] Cmt: [facility] Telephonic Outreach Prescriptions as of 07/21/2024 - ezetimibe (ZETIA) 10 mg tablet Take 1 tablet by mouth once daily. - prasugrel (EFFIENT) 10 mg tab Take 1 tablet by mouth once daily. Start with 60 mg (6 tablets) loading dose after you stop brilinta, then continue with 1 tablet (10 mg) once daily thereafter. - finasteride (PROSCAR) 5 mg tablet Take 1 tablet by mouth once daily. - atorvastatin (LIPITOR) 80 mg tablet Take 1 tablet by mouth daily at bedtime. - levothyroxine (SYNTHROID) 175 mcg tablet Take 1 tablet by mouth once daily. Take on empty stomach. For thyroid - albuterol HFA (PROVENTIL HFA, VENTOLIN HFA) 90 mcg/actuation inhaler Shake well then inhale 2 to 4 puffs as instructed every 6 hours as needed for wheezing/shortness of breath. - acetaminophen (TYLENOL) 325 mg tablet Take 2 tablets by mouth every 4 hours as needed for pain or fever (specify). Meds Comments as of 10/12/2016: Problem List As Of Date 07/02/2024 Noted Resolved Pure hypercholesterolemia [E78.00] 04/26/2011 Hypothyroidism [E03.9] 10/14/2005 09/25/2021 Mixed hyperlipidemia [E78.2] 10/14/2005 Benign neoplasm of colon [D12.6] 10/21/2006 12/20/2014 Ingrowing nail [L60.0] 06/09/2007 12/20/2014 UMBILICAL HERNIA [K42.9] 02/26/2009 Shoulder arthritis [M19.019] 05/18/2011 Unspecified gastritis and gastroduodenitis with*06/25/2011 12/20/2014 Benign neoplasm of rectum and anal canal [D12.8*06/25/2011 12/20/2014 Family history of prostate cancer [Z80.42] 10/16/2013 Elevated PSA [R97.20] 06/11/2014 BPH (benign prostatic hyperplasia) [N40.0] 06/11/2014 Frequency of micturition [R35.0] 06/11/2014 Acquired hypothyroidism [E03.9] 01/16/2016 Colon cancer screening [Z12.11] 08/05/2016 08/05/2016 Benign non-nodular prostatic hyperplasia [N40.0]08/16/2016 Chronic prostatitis [N41.1] 08/16/2016 Tendonitis, Achilles, right [M76.61] 05/26/2018 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] 05/26/2018 Calcaneal spur, right [M77.31] 05/26/2018 06/28/2018 Post-operative state [Z98.890] 08/11/2018 09/25/2021 Smoker [F17.200] 05/06/2020 History of pulmonary embolism [Z86.711] 05/19/2020 Hypokalemia [E87.6] 05/19/2020 09/25/2021 Flu-like symptoms [R68.89] 05/19/2020 09/25/2021 Lightheadedness [R42] 05/19/2020 09/25/2021 Bilateral pulmonary embolism (HCC) [I26.99] 05/19/2020 10/06/2021 Malnutrition of mild degree (HCC) [E44.1] 05/20/2020 11/12/2022 Obesity, Class I, BMI 30-34.9 [E66.811] 05/20/2020 Pulmonary nodules [R91.8] 05/20/2020 Multiple lacunar infarcts (HCC) [I63.81] 05/21/2020 Nocturia [R35.1] 10/01/2020 Unstable angina (HCC) [I20.0] 09/20/2021 09/25/2021 History of pulmonary embolus (PE) [Z86.711] 09/20/2021 Acute bronchitis [J20.9] 09/21/2021 09/24/2021 2V CAD s/p complex PCI (09/23/21) [I25.10] 09/22/2021 Unstable angina (HCC) [I20.0] 09/26/2021 09/26/2021 Essential hypertension, benign [I10] 06/16/2022 S/P shoulder surgery [Z98.890] 07/02/2022 Neck pain [M54.2] 11/29/2022 History of peptic ulcer disease [Z87.11] 12/21/2023 History of colonic polyps [Z86.0100] 06/28/2024 Encounter Status:Closed by LUZ MAC on 07/02/24 [facility] 06-29-2024 Note HNO ID: [id number] Author: LUZ MAC RN Service: ? Author Type: Registered Nurse Type: Progress Notes Filed: 07/02/2024 16:43 Note Text: Opened in error [facility] 06-29-2024 History of Present illness Narrative Opened in error documented in this encounter [facility] 06-28-2024 Note Formatting of this n ote might be different from the original. The patient received a copy of Colonoscopy discharge instructions that contain information for how to contact the physician who performed the procedure and when to seek medical care. [facility] 06-28-2024 Miscellaneous Notes The patient received a copy of Colonoscopy discharge instructions that contain information for how to contact the physician who performed the procedure and when to seek medical care. documented in this encounter [facility] 06-28-2024 History and physical note HISTORY AND PHYSICAL Lorenzo Reis : 1955 REFERRING PHYSICIAN: Mark Ramirez [address] [facility] [address] CHIEF COMPLAINT: Patient presents with: Colonoscopy Consult HPI: Lorenzo is a 68 year old male referred for endoscopy. Lorenzo notes personal history of colonic polyps. Patient denies any change in bowel habits, weight changes, blood in stools, black tarry stools or abdominal pain. Refers family history of colon issues.- father with colon cancer Lorenzo notes no upper GI complaints. Lorenzo has undergone prior endoscopy. Lorenzo has a history of CAD with stenting of LCX & RCA. Pt currently takes Effient but has not had follow up with cardiology since 2021. Lorenzo denies SOB, CP, or palpitations Last colonoscopy in 12/[address] Kovacs Impression: - Five small polyps in the sigmoid colon, in the transverse colon and in the cecum, removed with a cold snare. Resected and retrieved. Clips (MR conditional) were placed. - Diverticulosis in the sigmoid colon. - The examination was otherwise normal on direct and retroflexion views. Pathology: 1. Colon, cecum, polypectomy (A) - Serrated polyp, favor sessile serrated polyp (deeper levels examined). 2. Colon, proximal transverse, polypectomy (B) - Tubular adenoma. 3. Colon, sigmoid, polypectomy (C) - Hyperplastic polyp. KL/mm/12/24/2020 CURRENT MEDICATIONS Current Outpatient Medications Medication Sig levothyroxine (SYNTHROID) 175 mcg tablet Take 1 tablet by mouth once daily. Take on empty stomach. For thyroid albuterol HFA (PROVENTIL HFA, VENTOLIN HFA) 90 mcg/actuation inhaler Shake well then inhale 2 to 4 puffs as instructed every 6 hours as needed for wheezing/shortness of breath. metoprolol tartrate, short acting, (LOPRESSOR) 25 mg tablet Take 1 tablet by mouth two times a day. acetaminophen (TYLENOL) 325 mg tablet Take 2 tablets by mouth every 4 hours as needed for pain or fever (specify). prasugrel (EFFIENT) 10 mg tab Take 1 tablet by mouth once daily. Start with 60 mg (6 tablets) loading dose after you stop brilinta, then continue with 1 tablet (10 mg) once daily thereafter. finasteride (PROSCAR) 5 mg tablet Take 1 tablet by mouth once daily. atorvastatin (LIPITOR) 80 mg tablet Take 1 tablet by mouth daily at bedtime. No current facility-administered medications for this visit. ALLERGIES: Bees PAST MEDICAL HISTORY PAST MEDICAL HISTORY Diagnosis Date Acute pulmonary embolism (HCC) 06/2020 unknown cause; pt on Eliquis Benign neoplasm of rectum and anal canal History of peptic ulcer disease Pure hypercholesterolemia Snoring Tobacco use Unspecified hypothyroidism PAST SURGICAL HISTORY PAST SURGICAL HISTORY Procedure Laterality Date COLONOSCOPY FLX DX W/COLLJ SPEC WHEN PFRMD 06/16/2009 Colonoscopy COLONOSCOPY FLX DX W/COLLJ SPEC WHEN PFRMD 08/05/2016 Colonoscopy COLONOSCOPY FLX DX W/COLLJ SPEC WHEN PFRMD 02/15/2018 multiple adenomatous polyps, repeat in 3 years COLONOSCOPY FLX DX W/COLLJ SPEC WHEN PFRMD 12/23/2020 COLSC FLX W/RMVL OF TUMOR POLYP LESION SNARE TQ 10/21/2006 Large polyp at 50cm, 3 small sessile polyps in low rectosigmoid COLSC FLX W/RMVL OF TUMOR POLYP LESION SNARE TQ 06/25/2011 polyp in rectum DIAGNOSIS/HISTORY left 5th finger, laceration repair HERNIA REPAIR HX PAST SURGICAL HISTORY OF Right 1979 right shoulder Dislocated collar bone, ORIF Dr. Kilgore PAST SURGICAL HISTORY OF N/A 08/20/2020 Prostate biopsy RPR PRIMARY OPEN/PRQ RUPTURED ACHILLES W/GRAFT Right 2018 RPR UMBILICAL HRNA 5 YRS/> REDUCIBLE 07/15/2009 with mesh FAMILY HISTORY FAMILY HISTORY Problem Relation Age of Onset Alzheimer's Disease Mother Coronary Artery Disease Father NC Prostate Cancer Father Colon Cancer Father SOCIAL HISTORY Social History Tobacco Use Smoking status: Every Day Packs/day: 1.00 Years: 50.00 Additional pack years: 0.00 Total pack years: 50.00 Types: Cigarettes Start date: 1970 Smokeless tobacco: Never Vaping Use Vaping Use: Never used Substance Use Topics Alcohol use: Yes Comment: less than 6 beers a week Drug use: No REVIEW OF SYMPTOMS: REVIEW OF SYSTEMS: General: The patient denies fatigue, denies weight loss, denies weight gain, denies feeling hot, and feelings of cold. Cardiovascular: The patient denies chest pain, denies heart disease, denies high blood pressure, denies high cholesterol, and denies poor circulation. Respiratory: The patient denies tuberculosis, denies pneumonia, denies frequent cough, denies shortness of breath, and denies coughing up blood. Gastrointestinal: The patient denies difficulty swallowing, denies acid reflux, denies ulcers, denies jaundice/hepatitis, denies gallbladder problems, denies vomiting, denies black or tarry stools, denies hemorrhoids, denies bleeding from rectum, denies diverticulitis, denies constipation, denies diarrhea, denies loss of stool control, and denies hernias. Kidney/Bladder: The patient denies kidney stones, denies urine infections, and denies bloody urine. Skin: The patient denies a history of skin cancer, denies bleeding/changing moles, and denies a history of skin rash. Neurologic: The patient denies a history of epilepsy/convulsions, denies headaches, denies head/spinal injuries, and denies stroke/TIA. Psychiatric: The patient denies psychiatric medications, denies depression, and denies voices. Endocrine: The patient denies thyroid disorders, denies diabetes, and denies hormonal problems. Hematologic: The patient denies a history of bruising, denies bleeding, and denies anemia. PHYSICAL EXAMINATION: General: The patient is 68 year old, male well nourished, well hydrated in no acute distress. The patient is oriented to time, place, and person. VITALS: Blood pressure 148/86, pulse 72, temperature 36.7 C (98 F), resp. rate 20, height 175.3 cm (5' 9), weight 92.5 kg (204 lb), SpO2 96%. Body mass index is 30.13 kg/m . HEENT: Normal cephalic, ataumatic, pupils are equally round, sclera are anicteric, mucous membranes are moist, oropharynx is clear. Neck has no masses, asymmetry or lymphadenopathy. Respiratory: Clear to auscultation and percussion. Normal respiratory excursion and pattern. Cardiac: Examination is regular rate and rhythm. Normal S1/S2 Abdominal exam: Soft, nontender, with no palpable masses. No hepatosplenomegaly. No palpable hernias. Extremities: no clubbing, cyanosis or edema. No adenopathy. LABORATORY VALUES: As Noted RADIOLOGIC STUDIES: As Noted Assessment IMPRESSION: personal history of colonic polyps, screening for colon cancer, high risk PLAN: I have reviewed my findings with the surgeon. Will plan for lower endoscopy. We discussed the risks and benefits of the planned endoscopy. I have informed the patient that complications can occur including failure to complete the endoscopy and perforation. Lorenzo had the opportunity to ask questions concerning the planned endoscopy. My staff has also explained the procedure to the patient in understandable terms and has given the patient printed material concerning the procedure. Lorenzo freely consents to surgery. I plan to use Miralax bowel preparation I have explained to the patient the difference between IV conscious sedation and MAC anesthesia - and I have offered either, according to the patient's wishes. I have explained that with IV conscious sedation there is no anesthesia provider available and therefore there is a limitation of the amount of IV medications that can be given and that the patient may wake up in the middle of the procedure and/or experience pain/discomfort during the procedure. Further discussion was done and the patient was given the opportunity to ask questions and all questions were answered. MAC anesthesia. Lorenzo was counseled that if there are changes in his/her medical condition, to let the office know if surgery should proceed. If there are changes in patient's medical condition from time of this encounter to the day of the procedure that preclude anesthesia, patient may have procedure cancelled for patient's safety. Diagnoses: (Z87.11) History of peptic ulcer disease (primary encounter diagnosis) (Z12.11) Screening for colon cancer Will be in touch with patient in regards to holding Effient for elective colonoscopy after consulting prescribing provider if he can hold medication prior to scope. Portions of this documentation were copied and pasted from previous office visit notes in order to provide a cohesive continuity of the history. The note has been reviewed and edited and updated as necessary. Sima Mays APRN.ALICIA UPDATED HISTORY AND PHYSICAL EXAMINATION SERVICE DATE: 06/28/2024 SERVICE TIME: 8:01 AM PHYSICAL EXAM MUST BE COMPLETED ON ADMISSION The History and Physical (completed in the past 30 days) has been reviewed and the patient has been examined. The contents accurately reflect the patient's condition with the following additions or revisions since the H&P was completed. Examination indicates no changes. This H&P can be found in the attached. SIGNATURE: Judson Alves III, MD PATIENT NAME: Lorenzo Reis DATE: June 28, 2024 TIME: 8:01 AM [facility] 06-28-2024 History and physical note HISTORY AND PHYSICAL Lorenzo Reis : 1955 REFERRING PHYSICIAN: Mark Ramirez [address] [facility] [address] CHIEF COMPLAINT: Patient presents with: Colonoscopy Consult HPI: Lorenzo is a 68 year old male referred for endoscopy. Lorenzo notes personal history of colonic polyps. Patient denies any change in bowel habits, weight changes, blood in stools, black tarry stools or abdominal pain. Refers family history of colon issues.- father with colon cancer Lorenzo notes no upper GI complaints. Lorenzo has undergone prior endoscopy. Lorenzo has a history of CAD with stenting of LCX & RCA. Pt currently takes Effient but has not had follow up with cardiology since 2021. oLrenzo denies SOB, CP, or palpitations Last colonoscopy in 12/[address] Kovacs Impression: - Five small polyps in the sigmoid colon, in the transverse colon and in the cecum, removed with a cold snare. Resected and retrieved. Clips (MR conditional) were placed. - Diverticulosis in the sigmoid colon. - The examination was otherwise normal on direct and retroflexion views. Pathology: 1. Colon, cecum, polypectomy (A) - Serrated polyp, favor sessile serrated polyp (deeper levels examined). 2. Colon, proximal transverse, polypectomy (B) - Tubular adenoma. 3. Colon, sigmoid, polypectomy (C) - Hyperplastic polyp. KL/mm/12/24/2020 CURRENT MEDICATIONS Current Outpatient Medications Medication Sig levothyroxine (SYNTHROID) 175 mcg tablet Take 1 tablet by mouth once daily. Take on empty stomach. For thyroid albuterol HFA (PROVENTIL HFA, VENTOLIN HFA) 90 mcg/actuation inhaler Shake well then inhale 2 to 4 puffs as instructed every 6 hours as needed for wheezing/shortness of breath. metoprolol tartrate, short acting, (LOPRESSOR) 25 mg tablet Take 1 tablet by mouth two times a day. acetaminophen (TYLENOL) 325 mg tablet Take 2 tablets by mouth every 4 hours as needed for pain or fever (specify). prasugrel (EFFIENT) 10 mg tab Take 1 tablet by mouth once daily. Start with 60 mg (6 tablets) loading dose after you stop brilinta, then continue with 1 tablet (10 mg) once daily thereafter. finasteride (PROSCAR) 5 mg tablet Take 1 tablet by mouth once daily. atorvastatin (LIPITOR) 80 mg tablet Take 1 tablet by mouth daily at bedtime. No current facility-administered medications for this visit. ALLERGIES: Bees PAST MEDICAL HISTORY PAST MEDICAL HISTORY Diagnosis Date Acute pulmonary embolism (HCC) 06/2020 unknown cause; pt on Eliquis Benign neoplasm of rectum and anal canal History of peptic ulcer disease Pure hypercholesterolemia Snoring Tobacco use Unspecified hypothyroidism PAST SURGICAL HISTORY PAST SURGICAL HISTORY Procedure Laterality Date COLONOSCOPY FLX DX W/COLLJ SPEC WHEN PFRMD 06/16/2009 Colonoscopy COLONOSCOPY FLX DX W/COLLJ SPEC WHEN PFRMD 08/05/2016 Colonoscopy COLONOSCOPY FLX DX W/COLLJ SPEC WHEN PFRMD 02/15/2018 multiple adenomatous polyps, repeat in 3 years COLONOSCOPY FLX DX W/COLLJ SPEC WHEN PFRMD 12/23/2020 COLSC FLX W/RMVL OF TUMOR POLYP LESION SNARE TQ 10/21/2006 Large polyp at 50cm, 3 small sessile polyps in low rectosigmoid COLSC FLX W/RMVL OF TUMOR POLYP LESION SNARE TQ 06/25/2011 polyp in rectum DIAGNOSIS/HISTORY left 5th finger, laceration repair HERNIA REPAIR HX PAST SURGICAL HISTORY OF Right 1979 right shoulder Dislocated collar bone, ORIF Dr. Kilgore PAST SURGICAL HISTORY OF N/A 08/20/2020 Prostate biopsy RPR PRIMARY OPEN/PRQ RUPTURED ACHILLES W/GRAFT Right 2018 RPR UMBILICAL HRNA 5 YRS/> REDUCIBLE 07/15/2009 with mesh FAMILY HISTORY FAMILY HISTORY Problem Relation Age of Onset Alzheimer's Disease Mother Coronary Artery Disease Father NC Prostate Cancer Father Colon Cancer Father SOCIAL HISTORY Social History Tobacco Use Smoking status: Every Day Packs/day: 1.00 Years: 50.00 Additional pack years: 0.00 Total pack years: 50.00 Types: Cigarettes Start date: 1970 Smokeless tobacco: Never Vaping Use Vaping Use: Never used Substance Use Topics Alcohol use: Yes Comment: less than 6 beers a week Drug use: No REVIEW OF SYMPTOMS: REVIEW OF SYSTEMS: General: The patient denies fatigue, denies weight loss, denies weight gain, denies feeling hot, and feelings of cold. Cardiovascular: The patient denies chest pain, denies heart disease, denies high blood pressure, denies high cholesterol, and denies poor circulation. Respiratory: The patient denies tuberculosis, denies pneumonia, denies frequent cough, denies shortness of breath, and denies coughing up blood. Gastrointestinal: The patient denies difficulty swallowing, denies acid reflux, denies ulcers, denies jaundice/hepatitis, denies gallbladder problems, denies vomiting, denies black or tarry stools, denies hemorrhoids, denies bleeding from rectum, denies diverticulitis, denies constipation, denies diarrhea, denies loss of stool control, and denies hernias. Kidney/Bladder: The patient denies kidney stones, denies urine infections, and denies bloody urine. Skin: The patient denies a history of skin cancer, denies bleeding/changing moles, and denies a history of skin rash. Neurologic: The patient denies a history of epilepsy/convulsions, denies headaches, denies head/spinal injuries, and denies stroke/TIA. Psychiatric: The patient denies psychiatric medications, denies depression, and denies voices. Endocrine: The patient denies thyroid disorders, denies diabetes, and denies hormonal problems. Hematologic: The patient denies a history of bruising, denies bleeding, and denies anemia. PHYSICAL EXAMINATION: General: The patient is 68 year old, male well nourished, well hydrated in no acute distress. The patient is oriented to time, place, and person. VITALS: Blood pressure 148/86, pulse 72, temperature 36.7 C (98 F), resp. rate 20, height 175.3 cm (5' 9), weight 92.5 kg (204 lb), SpO2 96%. Body mass index is 30.13 kg/m . HEENT: Normal cephalic, ataumatic, pupils are equally round, sclera are anicteric, mucous membranes are moist, oropharynx is clear. Neck has no masses, asymmetry or lymphadenopathy. Respiratory: Clear to auscultation and percussion. Normal respiratory excursion and pattern. Cardiac: Examination is regular rate and rhythm. Normal S1/S2 Abdominal exam: Soft, nontender, with no palpable masses. No hepatosplenomegaly. No palpable hernias. Extremities: no clubbing, cyanosis or edema. No adenopathy. LABORATORY VALUES: As Noted RADIOLOGIC STUDIES: As Noted Assessment IMPRESSION: personal history of colonic polyps, screening for colon cancer, high risk PLAN: I have reviewed my findings with the surgeon. Will plan for lower endoscopy. We discussed the risks and benefits of the planned endoscopy. I have informed the patient that complications can occur including failure to complete the endoscopy and perforation. Lorenzo had the opportunity to ask questions concerning the planned endoscopy. My staff has also explained the procedure to the patient in understandable terms and has given the patient printed material concerning the procedure. Lorenzo freely consents to surgery. I plan to use Miralax bowel preparation I have explained to the patient the difference between IV conscious sedation and MAC anesthesia - and I have offered either, according to the patient's wishes. I have explained that with IV conscious sedation there is no anesthesia provider available and therefore there is a limitation of the amount of IV medications that can be given and that the patient may wake up in the middle of the procedure and/or experience pain/discomfort during the procedure. Further discussion was done and the patient was given the opportunity to ask questions and all questions were answered. MAC anesthesia. Lorenzo was counseled that if there are changes in his/her medical condition, to let the office know if surgery should proceed. If there are changes in patient's medical condition from time of this encounter to the day of the procedure that preclude anesthesia, patient may have procedure cancelled for patient's safety. Diagnoses: (Z87.11) History of peptic ulcer disease (primary encounter diagnosis) (Z12.11) Screening for colon cancer Will be in touch with patient in regards to holding Effient for elective colonoscopy after consulting prescribing provider if he can hold medication prior to scope. Portions of this documentation were copied and pasted from previous office visit notes in order to provide a cohesive continuity of the history. The note has been reviewed and edited and updated as necessary. Sima Mays, GEOGRAPHY DEPARTMENT CHAIR.WATER [employer] INSTALLER UPDATED HISTORY AND PHYSICAL EXAMINATION SERVICE DATE: 06/28/2024 SERVICE TIME: 8:01 AM PHYSICAL EXAM MUST BE COMPLETED ON ADMISSION The History and Physical (completed in the past 30 days) has been reviewed and the patient has been examined. The contents accurately reflect the patient's condition with the following additions or revisions since the H&P was completed. Examination indicates no changes. This H&P can be found in the attached. SIGNATURE: Judson Alves III, MD PATIENT NAME: Lorenzo Reis DATE: June 28, 2024 TIME: 8:01 AM documented in this encounter [facility] 06-27-2024 Note HNO ID: [id number] Author: LUZ MAC RN Service: ? Author Type: Registered Nurse Type: Progress Notes Filed: 06/27/2024 16:13 Note Text: [facility] Telephonic Outreach Provider Action/FYI Contacted for: Routine Telephonic Outreach Contact made with patient: No, left message. Luz Mac RN June 27, 2024 4:12 PM [facility] 06-27-2024 History of Present illness Narrative [facility] Telephonic Outreach Provider Action/FYI Contacted for: Routine Telephonic Outreach Contact made with patient: No, left message. Luz Mac RN June 27, 2024 4:12 PM documented in this encounter [facility] 06-27-2024 Note Patient Outreach ([place] [facility] [place] CHATOLORENZO ([id number]) 1955 M Date Time Provider Department 06/27/24 MACLUZ MAS During your visit today, we recorded the following information about you: Luz Mac RN 06/27/2024 4:13 PM Signed [facility] Telephonic Outreach Provider Action/FYI Contacted for: Routine Telephonic Outreach Contact made with patient: No, left message. Luz Mac RN June 27, 2024 4:12 PM Allergies As of Date: 06/27/2024 Noted Allergy Reaction BEES 10/14/2005 7 - Swelling Comments: Pt has been through desensitization. Date Reviewed: 06/05/2024 Reviewed by: Tita Issa RN - Fully Assessed Reason for Visit: Community Monitoring Outreach [Other] Cmt: [facility] Telephonic Outreach Prescriptions as of 06/27/2024 - ezetimibe (ZETIA) 10 mg tablet Take 1 tablet by mouth once daily. - prasugrel (EFFIENT) 10 mg tab Take 1 tablet by mouth once daily. Start with 60 mg (6 tablets) loading dose after you stop brilinta, then continue with 1 tablet (10 mg) once daily thereafter. - finasteride (PROSCAR) 5 mg tablet Take 1 tablet by mouth once daily. - atorvastatin (LIPITOR) 80 mg tablet Take 1 tablet by mouth daily at bedtime. - levothyroxine (SYNTHROID) 175 mcg tablet Take 1 tablet by mouth once daily. Take on empty stomach. For thyroid - albuterol HFA (PROVENTIL HFA, VENTOLIN HFA) 90 mcg/actuation inhaler Shake well then inhale 2 to 4 puffs as instructed every 6 hours as needed for wheezing/shortness of breath. - acetaminophen (TYLENOL) 325 mg tablet Take 2 tablets by mouth every 4 hours as needed for pain or fever (specify). Meds Comments as of 10/12/2016: Problem List As Of Date 06/27/2024 Noted Resolved Pure hypercholesterolemia [E78.00] 04/26/2011 Hypothyroidism [E03.9] 10/14/2005 09/25/2021 Mixed hyperlipidemia [E78.2] 10/14/2005 Benign neoplasm of colon [D12.6] 10/21/2006 12/20/2014 Ingrowing nail [L60.0] 06/09/2007 12/20/2014 UMBILICAL HERNIA [K42.9] 02/26/2009 Shoulder arthritis [M19.019] 05/18/2011 Unspecified gastritis and gastroduodenitis with*06/25/2011 12/20/2014 Benign neoplasm of rectum and anal canal [D12.8*06/25/2011 12/20/2014 Family history of prostate cancer [Z80.42] 10/16/2013 Elevated PSA [R97.20] 06/11/2014 BPH (benign prostatic hyperplasia) [N40.0] 06/11/2014 Frequency of micturition [R35.0] 06/11/2014 Acquired hypothyroidism [E03.9] 01/16/2016 Colon cancer screening [Z12.11] 08/05/2016 08/05/2016 Benign non-nodular prostatic hyperplasia [N40.0]08/16/2016 Chronic prostatitis [N41.1] 08/16/2016 Tendonitis, Achilles, right [M76.61] 05/26/2018 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] 05/26/2018 Calcaneal spur, right [M77.31] 05/26/2018 06/28/2018 Post-operative state [Z98.890] 08/11/2018 09/25/2021 Smoker [F17.200] 05/06/2020 History of pulmonary embolism [Z86.711] 05/19/2020 Hypokalemia [E87.6] 05/19/2020 09/25/2021 Flu-like symptoms [R68.89] 05/19/2020 09/25/2021 Lightheadedness [R42] 05/19/2020 09/25/2021 Bilateral pulmonary embolism (HCC) [I26.99] 05/19/2020 10/06/2021 Malnutrition of mild degree (HCC) [E44.1] 05/20/2020 11/12/2022 Obesity, Class I, BMI 30-34.9 [E66.811] 05/20/2020 Pulmonary nodules [R91.8] 05/20/2020 Multiple lacunar infarcts (HCC) [I63.81] 05/21/2020 Nocturia [R35.1] 10/01/2020 Unstable angina (HCC) [I20.0] 09/20/2021 09/25/2021 History of pulmonary embolus (PE) [Z86.711] 09/20/2021 Acute bronchitis [J20.9] 09/21/2021 09/24/2021 2V CAD s/p complex PCI (09/23/21) [I25.10] 09/22/2021 Unstable angina (HCC) [I20.0] 09/26/2021 09/26/2021 Essential hypertension, benign [I10] 06/16/2022 S/P shoulder surgery [Z98.890] 07/02/2022 Neck pain [M54.2] 11/29/2022 History of peptic ulcer disease [Z87.11] 12/21/2023 Encounter Status:Closed by LUZ MAC on 06/27/24 [facility] 06-22-2024 Telephone encounter Note Attempted to call [phone] and [phone] no answer on either. [facility] 06-22-2024 Miscellaneous Notes Attempted to call [phone] and [phone] no answer on either. documented in this encounter [facility] 06-20-2024 Note HNO ID: [id number] Author: LUZ MAC RN Service: ? Author Type: Registered Nurse Type: Progress Notes Filed: 06/20/2024 16:27 Note Text: Opened in error [facility] 06-20-2024 History of Present illness Narrative Opened in error documented in this encounter [facility] 06-11-2024 Telephone encounter Note Esha Hawthorne MD Miller, Jamie Yes he had cardiac cath done on 06/05/24. Medical management of CAD. Metoprolol discontinued due to bradycardia and hypotension at time of his cath. No further cardiac workup recommended. [facility] 06-11-2024 Miscellaneous Notes Esha Hawthorne MD Miller, Jamie Yes he had cardiac cath done on 06/05/24. Medical management of CAD. Metoprolol discontinued due to bradycardia and hypotension at time of his cath. No further cardiac workup recommended. documented in this encounter [facility] 06-05-2024 Note HNO ID: [id number] Author: EMY JUAREZ, LESLEY Service: Nursing Author Type: Registered Nurse Type: Nursing Progress Note Filed: 06/05/2024 08:22 Note Text: Other: pt ready for OR, call light in reach, called to bedside. [facility] 06-02-2024 Note HNO ID: [id number] Author: MARISOL PENG DO Service: Cardiovascular Disease Author Type: Physician Type: Progress Notes Filed: 06/02/2024 10:13 Note Text: CARDIAC CATHETERIZATION RISK ASSESSMENT SERVICE DATE: June 02, 2024 SERVICE TIME: 10:13 AM Level 1 Cardiac Catheterization Lab Exclusion Check List Is the patient less than 22 years old? No Is there pulmonary edema due to ischemia? No Is there valvular or LV function limitations with severe (Class 4) symptoms? No Is there complex congenital heart disease? No Is there an acute coronary syndrome? No Is this a therapeutic procedure in adult congenital heart disease patient? No SIGNATURE: Marisol Peng DO PATIENT NAME: Lorenzo Reis DATE: June 02, 2024 TIME: 10:13 AM PAGER/CONTACT #: [facility] 05-28-2024 Miscellaneous Notes Santy Ventura , your lipid panel shows a high LDL cholesterol level which is the bad cholesterol that can cause stroke and/or heart attacks. Your goal LDL should be less than 70. We would therefore recommend adding a second cholesterol lowering medication called ezetimibe (zetia) 10 mg taken once a day, in addition to your atorvastatin 80 mg daily medication. You would need to recheck your lipid panel and liver function blood tests 4-6 weeks after starting ezetimibe (zetia). Kindly let us know if you would like for us to send this medication to your pharmacy as well as order the repeat blood tests. documented in this encounter [facility] 05-28-2024 Telephone encounter Note Hi Lorenzo , your lipid panel shows a high LDL cholesterol level which is the bad cholesterol that can cause stroke and/or heart attacks. Your goal LDL should be less than 70. We would therefore recommend adding a second cholesterol lowering medication called ezetimibe (zetia) 10 mg taken once a day, in addition to your atorvastatin 80 mg daily medication. You would need to recheck your lipid panel and liver function blood tests 4-6 weeks after starting ezetimibe (zetia). Kindly let us know if you would like for us to send this medication to your pharmacy as well as order the repeat blood tests. [facility] 05-28-2024 Telephone encounter Note Spoke with patient and reviewed all instructions including stopping Eliquis on Tuesday before LHC. [facility] 05-28-2024 Miscellaneous Notes Spoke with patient and reviewed all instructions including stopping Eliquis on Tuesday before LHC. documented in this encounter [facility] 05-26-2024 Telephone encounter Note I attempted to contact Lorenzo but unable to reach. I was able to reach his Bonita who said she would take the message on his behalf and relay it to Lorenzo. We discussed stress test results-mild ischemia RCA, small fixed defect RCA territory, EF 57%. PACs and PVCs. Discussed next steps for cardiac catheterization RHC+LHC either at [facility] where only diagnostic cath can be performed or at [facility] or [facility] where both diagnostic LHC and RHC and revascularization can be performed. She states to have it set up with Dr. Peng with whom she notes that Lorenzo had a good rapport with in 2021. Order for RHC and LHC at [facility]. She will discuss this with Lorenzo. If there are any changes in location preference for cath, Lorenzo/ Bonita will keep us updated. [facility] 05-26-2024 Miscellaneous Notes I attempted to contact Lorenzo but unable to reach. I was able to reach his Bonita who said she would take the message on his behalf and relay it to Lorenzo. We discussed stress test results-mild ischemia RCA, small fixed defect RCA territory, EF 57%. PACs and PVCs. Discussed next steps for cardiac catheterization RHC+LHC either at [facility] where only diagnostic cath can be performed or at [facility] or [facility] where both diagnostic LHC and RHC and revascularization can be performed. She states to have it set up with Dr. Peng with whom she notes that Lorenzo had a good rapport with in 2021. Order for RHC and LHC at [facility]. She will discuss this with Lorenzo. If there are any changes in location preference for cath, Lorenzo/ Bonita will keep us updated. documented in this encounter [facility] 05-25-2024 History of Present illness Narrative Chief Complaint Patient presents with: 6 Month Exam Immunizations: Flu vaccination HPI Lorenzo Reis is a 68 year old male who presents here today for 6 month follow up. Does have an advanced directive. Smoking 1ppd, increased. No bowel, GI, or urinary issues. Scheduled for colonoscopy in Jun. Fhx colon cancer. Taking Proscar 5 mg daily. Does not follow with Urology any longer. Thyroid: taking Synthroid 150 mcg daily. No missed dosages Lipid/CAD: Denies any exercise or watching diet but does stay active. Is following with Cardio Dr. Gomez. Taking Lipitor 80 mg daily, tolerating well. HTN: Does not check BP at home. No chest pains, dizziness, or unusual SOB. Taking Lopressor 25 mg 1 pill BID and Effient 10 mg daily. Following with Cardio, had echo and stress test done yesterday due to getting some SOB. Past medical history, appointments, medications, allergies reviewed. Previous Medical History PAST MEDICAL HISTORY Diagnosis Date Acute pulmonary embolism (HCC) 06/2020 unknown cause; pt on Eliquis Benign neoplasm of rectum and anal canal History of peptic ulcer disease Pure hypercholesterolemia Snoring Tobacco use Unspecified hypothyroidism Previous Surgical History PAST SURGICAL HISTORY Procedure Laterality Date COLONOSCOPY FLX DX W/COLLJ SPEC WHEN PFRMD 06/16/2009 Colonoscopy COLONOSCOPY FLX DX W/COLLJ SPEC WHEN PFRMD 08/05/2016 Colonoscopy COLONOSCOPY FLX DX W/COLLJ SPEC WHEN PFRMD 02/15/2018 multiple adenomatous polyps, repeat in 3 years COLONOSCOPY FLX DX W/COLLJ SPEC WHEN PFRMD 12/23/2020 COLSC FLX W/RMVL OF TUMOR POLYP LESION SNARE TQ 10/21/2006 Large polyp at 50cm, 3 small sessile polyps in low rectosigmoid COLSC FLX W/RMVL OF TUMOR POLYP LESION SNARE TQ 06/25/2011 polyp in rectum DIAGNOSIS/HISTORY left 5th finger, laceration repair HERNIA REPAIR HX PAST SURGICAL HISTORY OF Right 1979 right shoulder Dislocated collar bone, ORIF Dr. Kilgore PAST SURGICAL HISTORY OF N/A 08/20/2020 Prostate biopsy RPR PRIMARY OPEN/PRQ RUPTURED ACHILLES W/GRAFT Right 2018 RPR UMBILICAL HRNA 5 YRS/> REDUCIBLE 07/15/2009 with mesh Family History FAMILY HISTORY Problem Relation Age of Onset Alzheimer's Disease Mother Coronary Artery Disease Father [place] Prostate Cancer Father Colon Cancer Father Patient Allergies ALLERGIES Allergen Reactions Bees Swelling Pt has been through desensitization. Current Medications Current Outpatient Medications on File Prior to Visit Medication Sig prasugrel (EFFIENT) 10 mg tab Take 1 tablet by mouth once daily. Start with 60 mg (6 tablets) loading dose after you stop brilinta, then continue with 1 tablet (10 mg) once daily thereafter. finasteride (PROSCAR) 5 mg tablet Take 1 tablet by mouth once daily. atorvastatin (LIPITOR) 80 mg tablet Take 1 tablet by mouth daily at bedtime. levothyroxine (SYNTHROID) 175 mcg tablet Take 1 tablet by mouth once daily. Take on empty stomach. For thyroid albuterol HFA (PROVENTIL HFA, VENTOLIN HFA) 90 mcg/actuation inhaler Shake well then inhale 2 to 4 puffs as instructed every 6 hours as needed for wheezing/shortness of breath. metoprolol tartrate, short acting, (LOPRESSOR) 25 mg tablet Take 1 tablet by mouth two times a day. acetaminophen (TYLENOL) 325 mg tablet Take 2 tablets by mouth every 4 hours as needed for pain or fever (specify). No current facility-administered medications on file prior to visit. Social History Social History Tobacco Use Smoking status: Every Day Current packs/day: 1.00 Average packs/day: 1 pack/day for 53.9 years (53.9 ttl pk-yrs) Types: Cigarettes Start date: 1970 Smokeless tobacco: Never Vaping Use Vaping status: Never Used Substance Use Topics Alcohol use: Not Currently Drug use: No EXAM: BP 126/78 Pulse (!) 58 Resp 16 Wt 91.4 kg (201 lb 8 oz) BMI 29.76 kg/m General Appearance: Well appearing, alert, in no acute distress, well-hydrated, well nourished. and Overweight. Lungs: Lungs clear to auscultation. No wheezing, rhonchi, rales.. Heart: RRR without murmur, gallop, or rubs. No ectopy. Health Maintenance List Shingrix Vaccine(2 of 2) due on 08/01/2019 Advance Directive Discussion due on 07/18/2023 Lung Cancer Screening due on 12/03/2023 Colorectal Cancer Screening due on 12/24/2023 Influenza Vaccine(1) due on 03/18/2024 Covid-19 Vaccine(3 - season) due on 03/18/2024 LDL Cholesterol due on 11/23/2024 Depression Screening due on 11/23/2024 Anxiety Screening due on 11/23/2024 Annual PCP Team Chronic Disease Visit due on 05/25/2025 BP Controlled (<130/80) due on 05/25/2025 Prostate Cancer Screening Discussion due on 02/25/2026 Diabetes Screening due on 11/23/2026 Lipid Screening due on 11/23/2028 DTaP,Tdap,Td Vaccine(4 - Td or Tdap) due on 03/28/2030 RSV Vaccine(1 - 1-dose 75+ series) due on 2030 Abdominal Aortic Aneurysm Screening Completed Hepatitis C Screening Completed Pneumococcal Vaccine: 65+ Completed Data reviewed None ASSESSMENT/PLAN: 1. Mixed hyperlipidemia - ICD9: 272.2, ICD10: E78.2 (primary diagnosis) - Control undetermined, due for labs - Continue current medications - Counseled on healthy diet and regular exercise - Discussed need for and benefit of weight loss. BMI 29.76 kg/(m^2) 2. Need for influenza vaccination - ICD9: V04.81, ICD10: Z23 Flu vaccine given in office today 3. Need for vaccination - ICD9: V05.9, ICD10: Z23 - INFLUENZA VACCINE, PRSV FREE, AGE 65+ YR, HIGH DOSE, TRIVALENT (FLUZONE HIGH-DOSE) - Manta COVID-19 VACCINE AGE 12+ YR (COMIRNATY) 4. Acquired hypothyroidism - ICD9: 244.9, ICD10: E03.9 - Instructed patient on importance of taking on an empty stomach either first thing in the morning or at bedtime. Continue current medications. 5. Elevated PSA - ICD9: 790.93, ICD10: R97.20 Monitored with labs 6. Benign prostatic hyperplasia without lower urinary tract symptoms - ICD9: 600.00, ICD10: N40.0 Continue current medications. 7. Smoker - ICD9: 305.1, ICD10: F17.200 - Cessation encouraged. - Physiologic and physical aspects of tobacco addiction as well as strategies for quitting were discussed. - Counseling was given focusing on the harmful effects of this addiction especially given the patient's medical condition(s) which will be worsened because of the chemicals in tobacco. - Counseling was given 8. Essential hypertension, benign - ICD9: 401.1, ICD10: I10 - Controlled - Continue current medications - Recommend home blood pressure monitoring, to bring results to next visit - Encouraged sodium restriction, DASH or Mediterranean diet - Recommend regular aerobic exercise - Discussed need for and benefit of weight loss. BMI 29.76 kg/(m^2) 9. CAD Follow with Cardiology Follow up in 6 months with fasting labs prior. Notify of lab results from today I agree with the Chief Complaint, ROS, and Past Histories independently gathered by the clinical family support coordinator and the remaining scribed note accurately describes my personal service to the patient. Medical Decision Making: Problems: Moderate: 2+ stable chronic illnesses Data: Unique test(s) ordered: 3+ Risk: Moderate: Drug management Medical Decision Making Level: 4 - Moderate c Mark Ramirez MD The documentation for this note was completed by Cynthia Chi MA acting as scribe for Mark Ramirez MD. May 25, 2024 8:09 AM. Cynthia Chi MA documented in this encounter [facility] 05-25-2024 Note HNO ID: [id number] Author: MARK RAMIREZ MD Service: ? Author Type: Physician Type: Progress Notes Filed: 05/25/2024 08:35 Note Text: Chief Complaint Patient presents with: 6 Month Exam Immunizations: Flu vaccination HPI Lorenzo Reis is a 68 year old male who presents here today for 6 month follow up. Does have an advanced directive. Smoking 1ppd, increased. No bowel, GI, or urinary issues. Scheduled for colonoscopy in Jun. Fhx colon cancer. Taking Proscar 5 mg daily. Does not follow with Urology any longer. Thyroid: taking Synthroid 150 mcg daily. No missed dosages Lipid/CAD: Denies any exercise or watching diet but does stay active. Is following with Cardio Dr. Gomez. Taking Lipitor 80 mg daily, tolerating well. HTN: Does not check BP at home. No chest pains, dizziness, or unusual SOB. Taking Lopressor 25 mg 1 pill BID and Effient 10 mg daily. Following with Cardio, had echo and stress test done yesterday due to getting some SOB. Past medical history, appointments, medications, allergies reviewed. Previous Medical History PAST MEDICAL HISTORY Diagnosis Date Acute pulmonary embolism (HCC) 06/2020 unknown cause; pt on Eliquis Benign neoplasm of rectum and anal canal History of peptic ulcer disease Pure hypercholesterolemia Snoring Tobacco use Unspecified hypothyroidism Previous Surgical History PAST SURGICAL HISTORY Procedure Laterality Date COLONOSCOPY FLX DX W/COLLJ SPEC WHEN PFRMD 06/16/2009 Colonoscopy COLONOSCOPY FLX DX W/COLLJ SPEC WHEN PFRMD 08/05/2016 Colonoscopy COLONOSCOPY FLX DX W/COLLJ SPEC WHEN PFRMD 02/15/2018 multiple adenomatous polyps, repeat in 3 years COLONOSCOPY FLX DX W/COLLJ SPEC WHEN PFRMD 12/23/2020 COLSC FLX W/RMVL OF TUMOR POLYP LESION SNARE TQ 10/21/2006 Large polyp at 50cm, 3 small sessile polyps in low rectosigmoid COLSC FLX W/RMVL OF TUMOR POLYP LESION SNARE TQ 06/25/2011 polyp in rectum DIAGNOSIS/HISTORY left 5th finger, laceration repair HERNIA REPAIR HX PAST SURGICAL HISTORY OF Right 1979 right shoulder Dislocated collar bone, ORIF Dr. Kilgore PAST SURGICAL HISTORY OF N/A 08/20/2020 Prostate biopsy RPR PRIMARY OPEN/PRQ RUPTURED ACHILLES W/GRAFT Right 2018 RPR UMBILICAL HRNA 5 YRS/> REDUCIBLE 07/15/2009 with mesh Family History FAMILY HISTORY Problem Relation Age of Onset Alzheimer's Disease Mother Coronary Artery Disease Father [place] Prostate Cancer Father Colon Cancer Father Patient Allergies ALLERGIES Allergen Reactions Bees Swelling Pt has been through desensitization. Current Medications Current Outpatient Medications on File Prior to Visit Medication Sig prasugrel (EFFIENT) 10 mg tab Take 1 tablet by mouth once daily. Start with 60 mg (6 tablets) loading dose after you stop brilinta, then continue with 1 tablet (10 mg) once daily thereafter. finasteride (PROSCAR) 5 mg tablet Take 1 tablet by mouth once daily. atorvastatin (LIPITOR) 80 mg tablet Take 1 tablet by mouth daily at bedtime. levothyroxine (SYNTHROID) 175 mcg tablet Take 1 tablet by mouth once daily. Take on empty stomach. For thyroid albuterol HFA (PROVENTIL HFA, VENTOLIN HFA) 90 mcg/actuation inhaler Shake well then inhale 2 to 4 puffs as instructed every 6 hours as needed for wheezing/shortness of breath. metoprolol tartrate, short acting, (LOPRESSOR) 25 mg tablet Take 1 tablet by mouth two times a day. acetaminophen (TYLENOL) 325 mg tablet Take 2 tablets by mouth every 4 hours as needed for pain or fever (specify). No current facility-administered medications on file prior to visit. Social History Social History Tobacco Use Smoking status: Every Day Current packs/day: 1.00 Average packs/day: 1 pack/day for 53.9 years (53.9 ttl pk-yrs) Types: Cigarettes Start date: 1970 Smokeless tobacco: Never Vaping Use Vaping status: Never Used Substance Use Topics Alcohol use: Not Currently Drug use: No EXAM: BP 126/78 Pulse (!) 58 Resp 16 Wt 91.4 kg (201 lb 8 oz) BMI 29.76 kg/m? General Appearance: Well appearing, alert, in no acute distress, well-hydrated, well nourished. and Overweight. Lungs: Lungs clear to auscultation. No wheezing, rhonchi, rales.. Heart: RRR without murmur, gallop, or rubs. No ectopy. Health Maintenance List Shingrix Vaccine(2 of 2) due on 08/01/2019 Advance Directive Discussion due on 07/18/2023 Lung Cancer Screening due on 12/03/2023 Colorectal Cancer Screening due on 12/24/2023 Influenza Vaccine(1) due on 03/18/2024 Covid-19 Vaccine() due on 03/18/2024 LDL Cholesterol due on 11/23/2024 Depression Screening due on 11/23/2024 Anxiety Screening due on 11/23/2024 Annual PCP Team Chronic Disease Visit due on 05/25/2025 BP Controlled (<130/80) due on 05/25/2025 Prostate Cancer Screening Discussion due on 02/25/2026 Diabetes Screening due on 11/23/2026 Lipid Screening due on 11/23/2028 DTaP,Tdap,Td Vaccine(4 - Td or Tdap) due (more content not included)... [facility] 05-24-2024 History of Present illness Narrative RADIOLOGY SERVICE PROGRESS NOTE SERVICE DATE: 05/24/2024 SERVICE TIME: 10:14 AM PATIENT IDENTITY VERIFICATION COMPLETED USING TWO (2) STANDARD IDENTIFIERS: Name and Date of confirmed by patient verbally and Name and Date of confirmed by identification band FALL SCREENING: Has the patient had 2 falls in the last year or 1 fall with injury or currently using an Ambulatory Assistive Device (Walker, Cane, Wheelchair, Crutches, etc.)? No PATIENT GENDER DATA: .male ALLERGIES: Reviewed and unchanged MEDICATIONS REVIEWED: Not applicable PATIENT RELEVANT IMPLANT DATA REVIEWED: Not Applicable PATIENT PRESENTS WITH AN IMPLANTABLE OR ATTACHED FINANCIAL BUSINESS ANALYST: No CREATININE: Creatinine Date Value Ref Range Status 11/24/2023 0.83 0.73 - 1.22 mg/dL Final 05/13/2023 0.95 0.73 - 1.22 mg/dL Final 11/08/2022 0.94 0.73 - 1.22 mg/dL Final Estimated Glomerular Filtration Rate Date Value Ref Range Status 11/24/2023 95 >=60 mL/min/1.73m Final Comment: Estimated Glomerular Filtration Rate (eGFR) is calculated using the 2020 CKD-EPI creatinine equation. This equation utilizes serum creatinine, sex, and age as parameters. The creatinine assay has traceable calibration to isotope dilution-mass spectrometry. Refer to KDIGO guidelines for clinical interpretation. In patients with unstable renal function, e.g. those with acute kidney injury, the eGFR may not accurately reflect actual GFR. eGFR- Date Value Ref Range Status 11/10/2020 >60 Final P.O.C.T. RESULTS: N/A May 24, [address] PERFORMED: No IV SITE: Ambulatory: A peripheral IV was started in the Right antecubital site with a Angio cath: 22 gauge. POST EXAM PIV STATUS: Discontinued PROCEDURE TYPE: NM Stress: 9.2 mCi [id number] was administered IV for Rest Imaging at 09:20 by . 28.3 mCi [id number] was administered IV for Stress Imaging at 10:40 by . PATIENT DISCHARGED TO: Ambulatory patient, left [place] department area. Is this a therapy: No A Diagnostic radioactive procedure has taken place, with no further precautions necessary other than routine body substance precautions. More information regarding radiation safety can be found using this link: [email or web address] SIGNATURE: SU Elliott PATIENT NAME: Lorenzo Reis DATE: May 24, 2024 TIME: 10:14 AM PAGER/CONTACT #: documented in this encounter [facility] 05-24-2024 Note HNO ID: [id number] Author: MICHOACANO GONGORA CT Service: Nuclear Medicine Author Type: Technologist Type: Progress Notes Filed: 05/24/2024 10:41 Note Text: RADIOLOGY SERVICE PROGRESS NOTE SERVICE DATE: 05/24/2024 SERVICE TIME: 10:14 AM PATIENT IDENTITY VERIFICATION COMPLETED USING TWO (2) STANDARD IDENTIFIERS: Name and Date of confirmed by patient verbally and Name and Date of confirmed by identification band FALL SCREENING: Has the patient had 2 falls in the last year or 1 fall with injury or currently using an Ambulatory Assistive Device (Walker, Cane, Wheelchair, Crutches, etc.)? No PATIENT GENDER DATA: .male ALLERGIES: Reviewed and unchanged MEDICATIONS REVIEWED: Not applicable PATIENT RELEVANT IMPLANT DATA REVIEWED: Not Applicable PATIENT PRESENTS WITH AN IMPLANTABLE OR ATTACHED FINANCIAL BUSINESS ANALYST: No CREATININE: Creatinine Date Value Ref Range Status 11/24/2023 0.83 0.73 - 1.22 mg/dL Final 05/13/2023 0.95 0.73 - 1.22 mg/dL Final 11/08/2022 0.94 0.73 - 1.22 mg/dL Final Estimated Glomerular Filtration Rate Date Value Ref Range Status 11/24/2023 95 >=60 mL/min/1.73m? Final Comment: Estimated Glomerular Filtration Rate (eGFR) is calculated using the 2020 CKD-EPI creatinine equation. This equation utilizes serum creatinine, sex, and age as parameters. The creatinine assay has traceable calibration to isotope dilution-mass spectrometry. Refer to KDIGO guidelines for clinical interpretation. In patients with unstable renal function, e.g. those with acute kidney injury, the eGFR may not accurately reflect actual GFR. eGFR- Date Value Ref Range Status 11/10/2020 >60 Final P.O.C.T. RESULTS: N/A May 24, [address] PERFORMED: No IV SITE: Ambulatory: A peripheral IV was started in the Right antecubital site with a Angio cath: 22 gauge. POST EXAM PIV STATUS: Discontinued PROCEDURE TYPE: NM Stress: 9.2 mCi [id number] was administered IV for Rest Imaging at 09:20 by MM. 28.3 mCi [id number] was administered IV for Stress Imaging at 10:40 by . PATIENT DISCHARGED TO: Ambulatory patient, left [place] department area. Is this a therapy: No A Diagnostic radioactive procedure has taken place, with no further precautions necessary other than routine body substance precautions. More information regarding radiation safety can be found using this link: [email or web address] 20Diagnostic%20Nuclear%20Medicine% 20Procedures.[email or web address] SIGNATURE: SU Elliott PATIENT NAME: Lorenzo Reis DATE: May 24, 2024 TIME: 10:14 AM PAGER/CONTACT #: [facility] 05-16-2024 History of Present illness Narrative Images from the original note were not included. [facility] SECTION OF REGIONAL CARDIOLOGY OUTPATIENT VISIT DATE 05/16/2024 OUTPATIENT VISIT TYPE NEW PRIMARY CARE PHYSICIAN: Mark Ramirez [address] [place] [address] HISTORY OF PRESENT ILLNESS: Mr. Reis is a 68 year old male, hx of CAD s/p proximal OM1 09/24/2021 and RCA 09/30/2021, PE, HLD, tobacco use, hypothyroidism, PUD presents for establishment of care visit. He reports SOB with exertion including with walking. He denies chest pain, palpitations, orthopnea, PND, leg swelling, lightheadedness, syncope. Last seen by Dr. Gomez in 09/2021. TTE 2021: EF 59%, 07/18.1 grade 1 DD, trace MR, trace DE, ascending aorta 4.2 cm Prior cath 09/22/2021: LAD 3% diffuse, D1 less than 40% diffuse, percent proximal OM1, 85% mid RCA, diffuse less than 40% PDA and PLV. 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 He states that he is planned for colonoscopy on 05/29. PAST MEDICAL HISTORY Diagnosis Date Acute pulmonary embolism (HCC) 06/2020 unknown cause; pt on Eliquis Benign neoplasm of rectum and anal canal History of peptic ulcer disease Pure hypercholesterolemia Snoring Tobacco use Unspecified hypothyroidism PAST SURGICAL HISTORY Procedure Laterality Date COLONOSCOPY FLX DX W/COLLJ SPEC WHEN PFRMD 06/16/2009 Colonoscopy COLONOSCOPY FLX DX W/COLLJ SPEC WHEN PFRMD 08/05/2016 Colonoscopy COLONOSCOPY FLX DX W/COLLJ SPEC WHEN PFRMD 02/15/2018 multiple adenomatous polyps, repeat in 3 years COLONOSCOPY FLX DX W/COLLJ SPEC WHEN PFRMD 12/23/2020 COLSC FLX W/RMVL OF TUMOR POLYP LESION SNARE TQ 10/21/2006 Large polyp at 50cm, 3 small sessile polyps in low rectosigmoid COLSC FLX W/RMVL OF TUMOR POLYP LESION SNARE TQ 06/25/2011 polyp in rectum DIAGNOSIS/HISTORY left 5th finger, laceration repair HERNIA REPAIR HX PAST SURGICAL HISTORY OF Right 1979 right shoulder Dislocated collar bone, ORIF Dr. Kilgore PAST SURGICAL HISTORY OF N/A 08/20/2020 Prostate biopsy RPR PRIMARY OPEN/PRQ RUPTURED ACHILLES W/GRAFT Right 2018 RPR UMBILICAL HRNA 5 YRS/> REDUCIBLE 07/15/2009 with mesh Social History Tobacco Use Smoking status: Every Day Current packs/day: 1.00 Average packs/day: 1 pack/day for 53.8 years (53.8 ttl pk-yrs) Types: Cigarettes Start date: 1970 Smokeless tobacco: Never Vaping Use Vaping status: Never Used Substance Use Topics Alcohol use: Yes Comment: less than 6 beers a week Drug use: No FAMILY HISTORY Problem Relation Age of Onset Alzheimer's Disease Mother Coronary Artery Disease Father [place] Prostate Cancer Father Colon Cancer Father ALLERGIES Allergen Reactions Bees Swelling Pt has been through desensitization. CURRENT MEDICATIONS: prasugrel (EFFIENT) 10 mg tab Take 1 tablet by mouth once daily. Start with 60 mg (6 tablets) loading dose after you stop brilinta, then continue with 1 tablet (10 mg) once daily thereafter. finasteride (PROSCAR) 5 mg tablet Take 1 tablet by mouth once daily. atorvastatin (LIPITOR) 80 mg tablet Take 1 tablet by mouth daily at bedtime. levothyroxine (SYNTHROID) 175 mcg tablet Take 1 tablet by mouth once daily. Take on empty stomach. For thyroid albuterol HFA (PROVENTIL HFA, VENTOLIN HFA) 90 mcg/actuation inhaler Shake well then inhale 2 to 4 puffs as instructed every 6 hours as needed for wheezing/shortness of breath. metoprolol tartrate, short acting, (LOPRESSOR) 25 mg tablet Take 1 tablet by mouth two times a day. acetaminophen (TYLENOL) 325 mg tablet Take 2 tablets by mouth every 4 hours as needed for pain or fever (specify). PHYSICAL EXAMINATION: BP 118/64 Pulse (!) 50 Ht 175.3 cm (5' 9) Wt 92 kg (202 lb 13.2 oz) SpO2 97% BMI 29.95 kg/m General: Appears comfortable in no apparent cardiopulmonary distress Neck: No JVD, no bruits CVS: S1, S2, No m/r/g Chest: CTAB Abd: Soft, nontender, no masses, BS present Ext: No pedal edema, pedal pulses 2+ bilaterally Neuro: No focal neurological deficits ASSESSMENT/PLAN: 1. Coronary artery disease due to lipid rich plaque - ICD9: 414.00, 414.3, ICD10: I25.10, I25.83 (primary diagnosis) Status post AUBREY to circumflex and RCA 2021 [facility] Reports shortness of breath with exertion - Obtain nuclear stress test with exercise - Repeat TTE - Continue medical therapy -LDL 89 on 11/24/2023. Recheck lipids and LFTs. Goal LDL less than 70. Plan to add Zetia 10 mg p.o. daily if LDL is 70 or greater and recheck lipids and LFTs in 4 to 6 weeks 2. Ascending aorta dilatation (HCC) - ICD9: 447.71, ICD10: I77.810 Ascending aorta measured 4.2 cm per TTE 2021 - Recheck thoracic aorta size on repeat TTE. If it measures 4cm or greater, obtain Chest CTA for further assessment and continue monitoring yearly - On metoprolol. 3. SOB As above - Counseled on smoking cessation. He states that he wlil try to curb smoking and ultimately quit on his own. He is encouraged to reach out if he needs assistance such as with chantix or nicotine patches Esha Hawthorne MD, [facility] Non invasive and Sports table games floor supervisor documented in this encounter [facility] 05-16-2024 Note HNO ID: [id number] Author: ESHA HAWTHORNE MD Service: ? Author Type: Physician Type: Progress Notes Filed: 05/16/2024 14:38 Note Text: [facility] [place] SECTION OF REGIONAL CARDIOLOGY OUTPATIENT VISIT DATE 05/16/2024 OUTPATIENT VISIT TYPE NEW PRIMARY CARE PHYSICIAN: Mark Ramirez [address] [place] [address] HISTORY OF PRESENT ILLNESS: Mr. Reis is a 68 year old male, hx of CAD s/p proximal OM1 09/24/2021 and RCA 09/30/2021, PE, HLD, tobacco use, hypothyroidism, PUD presents for establishment of care visit. He reports SOB with exertion including with walking. He denies chest pain, palpitations, orthopnea, PND, leg swelling, lightheadedness, syncope. Last seen by Dr. Gomez in 09/2021. TTE 2021: EF 59%, 07/18.1 grade 1 DD, trace MR, trace DE, ascending aorta 4.2 cm Prior cath 09/22/2021: LAD 3% diffuse, D1 less than 40% diffuse, percent proximal OM1, 85% mid RCA, diffuse less than 40% PDA and PLV. 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 He states that he is planned for colonoscopy on 05/29. PAST MEDICAL HISTORY Diagnosis Date Acute pulmonary embolism (HCC) 06/2020 unknown cause; pt on Eliquis Benign neoplasm of rectum and anal canal History of peptic ulcer disease Pure hypercholesterolemia Snoring Tobacco use Unspecified hypothyroidism PAST SURGICAL HISTORY Procedure Laterality Date COLONOSCOPY FLX DX W/COLLJ SPEC WHEN PFRMD 06/16/2009 Colonoscopy COLONOSCOPY FLX DX W/COLLJ SPEC WHEN PFRMD 08/05/2016 Colonoscopy COLONOSCOPY FLX DX W/COLLJ SPEC WHEN PFRMD 02/15/2018 multiple adenomatous polyps, repeat in 3 years COLONOSCOPY FLX DX W/COLLJ SPEC WHEN PFRMD 12/23/2020 COLSC FLX W/RMVL OF TUMOR POLYP LESION SNARE TQ 10/21/2006 Large polyp at 50cm, 3 small sessile polyps in low rectosigmoid COLSC FLX W/RMVL OF TUMOR POLYP LESION SNARE TQ 06/25/2011 polyp in rectum DIAGNOSIS/HISTORY left 5th finger, laceration repair HERNIA REPAIR HX PAST SURGICAL HISTORY OF Right 1979 right shoulder Dislocated collar bone, ORIF Dr. Kilgore PAST SURGICAL HISTORY OF N/A 08/20/2020 Prostate biopsy RPR PRIMARY OPEN/PRQ RUPTURED ACHILLES W/GRAFT Right 2018 RPR UMBILICAL HRNA 5 YRS/> REDUCIBLE 07/15/2009 with mesh Social History Tobacco Use Smoking status: Every Day Current packs/day: 1.00 Average packs/day: 1 pack/day for 53.8 years (53.8 ttl pk-yrs) Types: Cigarettes Start date: 1970 Smokeless tobacco: Never Vaping Use Vaping status: Never Used Substance Use Topics Alcohol use: Yes Comment: less than 6 beers a week Drug use: No FAMILY HISTORY Problem Relation Age of Onset Alzheimer's Disease Mother Coronary Artery Disease Father [place] Prostate Cancer Father Colon Cancer Father ALLERGIES Allergen Reactions Bees Swelling Pt has been through desensitization. CURRENT MEDICATIONS: prasugrel (EFFIENT) 10 mg tab Take 1 tablet by mouth once daily. Start with 60 mg (6 tablets) loading dose after you stop brilinta, then continue with 1 tablet (10 mg) once daily thereafter. finasteride (PROSCAR) 5 mg tablet Take 1 tablet by mouth once daily. atorvastatin (LIPITOR) 80 mg tablet Take 1 tablet by mouth daily at bedtime. levothyroxine (SYNTHROID) 175 mcg tablet Take 1 tablet by mouth once daily. Take on empty stomach. For thyroid albuterol HFA (PROVENTIL HFA, VENTOLIN HFA) 90 mcg/actuation inhaler Shake well then inhale 2 to 4 puffs as instructed every 6 hours as needed for wheezing/shortness of breath. metoprolol tartrate, short acting, (LOPRESSOR) 25 mg tablet Take 1 tablet by mouth two times a day. acetaminophen (TYLENOL) 325 mg tablet Take 2 tablets by mouth every 4 hours as needed for pain or fever (specify). PHYSICAL EXAMINATION: BP 118/64 Pulse (!) 50 Ht 175.3 cm (5' 9) Wt 92 kg (202 lb 13.2 oz) SpO2 97% BMI 29.95 kg/m? General: Appears comfortable in no apparent cardiopulmonary distress Neck: No JVD, no bruits CVS: S1, S2, No m/r/g Chest: CTAB Abd: Soft, nontender, no masses, BS present Ext: No pedal edema, pedal pulses 2+ bilaterally Neuro: No focal neurological deficits ASSESSMENT/PLAN: 1. Coronary artery disease due to lipid rich plaque - ICD9: 414.00, 414.3, ICD10: I25.10, I25.83 (primary diagnosis) Status post AUBREY to circumflex and RCA 2021 [facility] Reports shortness of breath with exertion - Obtain nuclear stress test with exercise - Repeat TTE - Continue medical therapy -LDL 89 on 11/24/2023. Recheck lipids and LFTs. Goal LDL less than 70. Plan to add Zetia 10 mg p.o. daily if LDL is 70 or greater and recheck lipids and LFTs in 4 to 6 weeks 2. Ascending aorta dilatation (HCC) - ICD9: 447.71, ICD10: I77.810 Ascending aorta measured 4.2 cm per TTE 2021 - Recheck thoracic aorta size on repeat TTE. If it measures 4cm or greater, obtain Chest CTA for further assessment and continue monitoring year (more content not included)... [facility] 04-30-2024 Telephone encounter Note Spoke to patients Bonita and they are aware patients cardiologists appointment on 05/16 in [place] needs to be completed so we may seek the appropriate clearance for patient to proceed. Patient is rescheduled to [facility] 06/28/2024 as patient request. Bonita is aware if patient does NOT complete appointments and does not get cleared we will have to reschedule back to [facility] in [place] [employer] Inter[employer] [facility] 04-30-2024 Miscellaneous Notes Spoke to patients Bonita and they are aware patients cardiologists appointment on 05/16 in [place] needs to be completed so we may seek the appropriate clearance for patient to proceed. Patient is rescheduled to [facility] 06/28/2024 as patient request. Bonita is aware if patient does NOT complete appointments and does not get cleared we will have to reschedule back to [facility] in [place] [employer] Images from the original note were not included. Sima Mays APRN.ALICIA You3 minutes ago (9:43 AM) KB Sounds good. The order is changed You Sima Mays APRN.CNP14 minutes ago (9:33 AM) BH I will get it pushed out after his cardio appt and will let him know we need the appt completed and him cleared before we can proceed with the new ASC date. Please change order to asc [employer] Smia Mays APRN.CNP You30 minutes ago (9:17 AM) DARRELL I think he would be appropriate to be done in [place], AFTER his cardiac appt on 05/16 with clearance. I don't have any reason documented why he needs MAC. Thanks, Sima Mays APRN.CNP You Sima Mays APRN.CNP59 minutes ago (8:47 AM) Patients called and asking if procedure can be done here at [facility] [facility]. Please advise and change order if appropriate [employer] Patient's Bonita calling in stating that the patient would like to reschedule his colonoscopy. Patient currently scheduled for 05/04/24 in [place]. Patient also asking if he would be able to have it done in [place]. Please call patient's at [phone] due to the patient not able to answer his phone at work. Elise Bryson RN documented in this encounter [facility] 04-30-2024 Telephone encounter Note Images from the original note were not included. Sima Mays APRN.CNP You3 minutes ago (9:43 AM) DARRELL Sounds good. The order is changed Sima Hicks APRN.CNP14 minutes ago (9:33 AM) I will get it pushed out after his cardio appt and will let him know we need the appt completed and him cleared before we can proceed with the new ASC date. Please change order to asc [employer] Sima Mays APRN.CNP You30 minutes ago (9:17 AM) DARRELL I think he would be appropriate to be done in [place], AFTER his cardiac appt on 05/16 with clearance. I don't have any reason documented why he needs MAC. Thanks, Sima Mays APRN.CNP You Sima Mays APRN.CNP59 minutes ago (8:47 AM) Patients called and asking if procedure can be done here at [facility]. Please advise and change order if appropriate [employer] [facility] 04-27-2024 Telephone encounter Note Patient's Bonita calling in stating that the patient would like to reschedule his colonoscopy. Patient currently scheduled for 05/04/24 in [place]. Patient also asking if he would be able to have it done in [place]. Please call patient's at [phone] due to the patient not able to answer his phone at work. Elise Bryson RN [facility] 04-26-2024 Note HNO ID: [id number] Author: LUZ MAC RN Service: ? Author Type: Registered Nurse Type: Progress Notes Filed: 04/26/2024 17:23 Note Text: CDM Telephonic Outreach Provider Action/FYI This RN verified appt info w/ patient. However, patient surprised colonoscopy is scheduled at [facility]; he thought he was going to [place]/usual location.) Patient requests call back in few minutes when he's home/to check info on [facility] and w/ his . 2nd Call Per patient's request He's at home now w/ who helps manage his appts. Patient and unaware colonoscopy scheduled at [facility] at 130 pm arrival 3p start time/patient always prefers early am appointment at [place] location. Provided additional phone #s for patient to call to cx and reschedule his colonoscopy. Endo Main Schedule phone # and CC appt line. Patient very appreciative of the help and pertinent info. Contacted for: Routine Telephonic Outreach Contact made with patient: Yes Patient identified by name and date of . Discussed care with patient and licensing and registration director. Luz Mac RN 04/26/24 5:21PM [facility] 04-26-2024 History of Present illness Narrative CD Telephonic Outreach Provider Action/FYI This RN verified appt info w/ patient. However, patient surprised colonoscopy is scheduled at [facility]; he thought he was going to [place]/usual location.) Patient requests call back in few minutes when he's home/to check info on [facility] and w/ his . 2nd Call Per patient's request He's at home now w/ who helps manage his appts. Patient and unaware colonoscopy scheduled at [facility] at 130 pm arrival 3p start time/patient always prefers early am appointment at [place] location. Provided additional phone #s for patient to call to cx and reschedule his colonoscopy. Endo Main Schedule phone # and CC appt line. Patient very appreciative of the help and pertinent info. Contacted for: Routine Telephonic Outreach Contact made with patient: Yes Patient identified by name and date of . Discussed care with patient and licensing and registration director. Luz Mac RN 04/26/24 5:21PM documented in this encounter [facility] 04-26-2024 Note HNO ID: [id number] Author: LUZ MAC RN Service: ? Author Type: Registered Nurse Type: Progress Notes Filed: 04/26/2024 17:01 Note Text: CD Telephonic Outreach Provider Action/FYI Patient states: -doing well -aware of colonoscopy next week/[place] location This RN verified appt info/ However patient surprised colonoscopy is scheduled at [facility]; he thought he was going to [place]/usual location.) Patient requests call back in few minutes when he's home/to check info on [facility] and w/ his . Contacted for: Routine Telephonic Outreach Contact made with patient: Yes Patient identified by name and date of . Discussed care with patient Are you experiencing any new or worsening symptoms you need to talk about today? No [facility] 04-26-2024 History of Present illness Narrative CD Telephonic Outreach Provider Action/FYI Patient states: -doing well -aware of colonoscopy next week/[place] location This RN verified appt info/ However patient surprised colonoscopy is scheduled at [facility]; he thought he was going to [place]/usual location.) Patient requests call back in few minutes when he's home/to check info on [facility] and w/ his . Contacted for: Routine Telephonic Outreach Contact made with patient: Yes Patient identified by name and date of . Discussed care with patient Are you experiencing any new or worsening symptoms you need to talk about today? No documented in this encounter [facility] 04-26-2024 Note Patient Outreach ([facility]) LORENZO REIS ([id number]) 1955 M Date Time Provider Department 04/26/24 LUZ MAC AM[facility] During your visit today, we recorded the following information about you: Luz Mac RN 04/26/2024 5:01 PM Signed [facility] Telephonic Outreach Provider Action/ Patient states: -doing well -aware of colonoscopy next week/[place] location This RN verified appt info/ However patient surprised colonoscopy is scheduled at [facility]; he thought he was going to [place]/usual location.) Patient requests call back in few minutes when he's home/to check info on and w/ his . Contacted for: Routine Telephonic Outreach Contact made with patient: Yes Patient identified by name and date of . Discussed care with patient Are you experiencing any new or worsening symptoms you need to talk about today? No Allergies As of Date: 04/26/2024 Noted Allergy Reaction BEES 10/14/2005 7 - Swelling Comments: Pt has been through desensitization. Date Reviewed: 12/26/2023 Reviewed by: Xiomy Camarena, LESLEY - Fully Assessed Prescriptions as of 04/26/2024 - prasugrel (EFFIENT) 10 mg tab Take 1 tablet by mouth once daily. Start with 60 mg (6 tablets) loading dose after you stop brilinta, then continue with 1 tablet (10 mg) once daily thereafter. - finasteride (PROSCAR) 5 mg tablet Take 1 tablet by mouth once daily. - atorvastatin (LIPITOR) 80 mg tablet Take 1 tablet by mouth daily at bedtime. - levothyroxine (SYNTHROID) 175 mcg tablet Take 1 tablet by mouth once daily. Take on empty stomach. For thyroid - albuterol HFA (PROVENTIL HFA, VENTOLIN HFA) 90 mcg/actuation inhaler Shake well then inhale 2 to 4 puffs as instructed every 6 hours as needed for wheezing/shortness of breath. - metoprolol tartrate, short acting, (LOPRESSOR) 25 mg tablet Take 1 tablet by mouth two times a day. - acetaminophen (TYLENOL) 325 mg tablet Take 2 tablets by mouth every 4 hours as needed for pain or fever (specify). Meds Comments as of 10/12/2016: Problem List As Of Date 04/26/2024 Noted Resolved Pure hypercholesterolemia [E78.00] 04/26/2011 Hypothyroidism [E03.9] 10/14/2005 09/25/2021 Mixed hyperlipidemia [E78.2] 10/14/2005 Benign neoplasm of colon [D12.6] 10/21/2006 12/20/2014 Ingrowing nail [L60.0] 06/09/2007 12/20/2014 UMBILICAL HERNIA [K42.9] 02/26/2009 Shoulder arthritis [M19.019] 05/18/2011 Unspecified gastritis and gastroduodenitis with*06/25/2011 12/20/2014 Benign neoplasm of rectum and anal canal [D12.8*06/25/2011 12/20/2014 Family history of prostate cancer [Z80.42] 10/16/2013 Elevated PSA [R97.20] 06/11/2014 BPH (benign prostatic hyperplasia) [N40.0] 06/11/2014 Frequency of micturition [R35.0] 06/11/2014 Acquired hypothyroidism [E03.9] 01/16/2016 Colon cancer screening [Z12.11] 08/05/2016 08/05/2016 Benign non-nodular prostatic hyperplasia [N40.0]08/16/2016 Chronic prostatitis [N41.1] 08/16/2016 Tendonitis, Achilles, right [M76.61] 05/26/2018 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] 05/26/2018 Calcaneal spur, right [M77.31] 05/26/2018 06/28/2018 Post-operative state [Z98.890] 08/11/2018 09/25/2021 Smoker [F17.200] 05/06/2020 History of pulmonary embolism [Z86.711] 05/19/2020 Hypokalemia [E87.6] 05/19/2020 09/25/2021 Flu-like symptoms [R68.89] 05/19/2020 09/25/2021 Lightheadedness [R42] 05/19/2020 09/25/2021 Bilateral pulmonary embolism (HCC) [I26.99] 05/19/2020 10/06/2021 Malnutrition of mild degree (HCC) [E44.1] 05/20/2020 11/12/2022 Obesity, Class I, BMI 30-34.9 [E66.811] 05/20/2020 Pulmonary nodules [R91.8] 05/20/2020 Multiple lacunar infarcts (HCC) [I63.81] 05/21/2020 Nocturia [R35.1] 10/01/2020 Unstable angina (HCC) [I20.0] 09/20/2021 09/25/2021 History of pulmonary embolus (PE) [Z86.711] 09/20/2021 Acute bronchitis [J20.9] 09/21/2021 09/24/2021 2V CAD s/p complex PCI (09/23/21) [I25.10] 09/22/2021 Unstable angina (HCC) [I20.0] 09/26/2021 09/26/2021 Essential hypertension, benign [I10] 06/16/2022 S/P shoulder surgery [Z98.890] 07/02/2022 Neck pain [M54.2] 11/29/2022 History of peptic ulcer disease [Z87.11] 12/21/2023 Encounter Status:Closed by LUZ MAC on 04/26/24 [facility] 04-26-2024 Note Patient Outreach ([facility] LORENZO REIS ([id number]) 1955 M Date Time Provider Department 04/26/24 LUZ MAC During your visit today, we recorded the following information about you: Luz Mac RN 04/26/2024 5:23 PM Signed [facility] Telephonic Outreach Provider Action/KIMANI This RN verified appt info w/ patient. However, patient surprised colonoscopy is scheduled at [facility]; he thought he was going to [place]/usual location.) Patient requests call back in few minutes when he's home/to check info on [facility] and w/ his . 2nd Call Per patient's request He's at home now w/ who helps manage his appts. Patient and unaware colonoscopy scheduled at [facility] at 130 pm arrival 3p start time/patient always prefers early am appointment at [place] location. Provided additional phone #s for patient to call to cx and reschedule his colonoscopy. Endo Main Schedule phone # and CC appt line. Patient very appreciative of the help and pertinent info. Contacted for: Routine Telephonic Outreach Contact made with patient: Yes Patient identified by name and date of . Discussed care with patient and licensing and registration director. Luz Mac RN 04/26/24 5:21PM Allergies As of Date: 04/26/2024 Noted Allergy Reaction BEES 10/14/2005 7 - Swelling Comments: Pt has been through desensitization. Date Reviewed: 12/26/2023 Reviewed by: Xiomy Camarena, RN - Fully Assessed Reason for Visit: Community Monitoring Outreach [Other] Cmt: [facility] Telephonic Outreach Prescriptions as of 04/26/2024 - prasugrel (EFFIENT) 10 mg tab Take 1 tablet by mouth once daily. Start with 60 mg (6 tablets) loading dose after you stop brilinta, then continue with 1 tablet (10 mg) once daily thereafter. - finasteride (PROSCAR) 5 mg tablet Take 1 tablet by mouth once daily. - atorvastatin (LIPITOR) 80 mg tablet Take 1 tablet by mouth daily at bedtime. - levothyroxine (SYNTHROID) 175 mcg tablet Take 1 tablet by mouth once daily. Take on empty stomach. For thyroid - albuterol HFA (PROVENTIL HFA, VENTOLIN HFA) 90 mcg/actuation inhaler Shake well then inhale 2 to 4 puffs as instructed every 6 hours as needed for wheezing/shortness of breath. - metoprolol tartrate, short acting, (LOPRESSOR) 25 mg tablet Take 1 tablet by mouth two times a day. - acetaminophen (TYLENOL) 325 mg tablet Take 2 tablets by mouth every 4 hours as needed for pain or fever (specify). Meds Comments as of 10/12/2016: Problem List As Of Date 04/26/2024 Noted Resolved Pure hypercholesterolemia [E78.00] 04/26/2011 Hypothyroidism [E03.9] 10/14/2005 09/25/2021 Mixed hyperlipidemia [E78.2] 10/14/2005 Benign neoplasm of colon [D12.6] 10/21/2006 12/20/2014 Ingrowing nail [L60.0] 06/09/2007 12/20/2014 UMBILICAL HERNIA [K42.9] 02/26/2009 Shoulder arthritis [M19.019] 05/18/2011 Unspecified gastritis and gastroduodenitis with*06/25/2011 12/20/2014 Benign neoplasm of rectum and anal canal [D12.8*06/25/2011 12/20/2014 Family history of prostate cancer [Z80.42] 10/16/2013 Elevated PSA [R97.20] 06/11/2014 BPH (benign prostatic hyperplasia) [N40.0] 06/11/2014 Frequency of micturition [R35.0] 06/11/2014 Acquired hypothyroidism [E03.9] 01/16/2016 Colon cancer screening [Z12.11] 08/05/2016 08/05/2016 Benign non-nodular prostatic hyperplasia [N40.0]08/16/2016 Chronic prostatitis [N41.1] 08/16/2016 Tendonitis, Achilles, right [M76.61] 05/26/2018 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] 05/26/2018 Calcaneal spur, right [M77.31] 05/26/2018 06/28/2018 Post-operative state [Z98.890] 08/11/2018 09/25/2021 Smoker [F17.200] 05/06/2020 History of pulmonary embolism [Z86.711] 05/19/2020 Hypokalemia [E87.6] 05/19/2020 09/25/2021 Flu-like symptoms [R68.89] 05/19/2020 09/25/2021 Lightheadedness [R42] 05/19/2020 09/25/2021 Bilateral pulmonary embolism (HCC) [I26.99] 05/19/2020 10/06/2021 Malnutrition of mild degree (HCC) [E44.1] 05/20/2020 11/12/2022 Obesity, Class I, BMI 30-34.9 [E66.811] 05/20/2020 Pulmonary nodules [R91.8] 05/20/2020 Multiple lacunar infarcts (HCC) [I63.81] 05/21/2020 Nocturia [R35.1] 10/01/2020 Unstable angina (HCC) [I20.0] 09/20/2021 09/25/2021 History of pulmonary embolus (PE) [Z86.711] 09/20/2021 Acute bronchitis [J20.9] 09/21/2021 09/24/2021 2V CAD s/p complex PCI (09/23/21) [I25.10] 09/22/2021 Unstable angina (HCC) [I20.0] 09/26/2021 09/26/2021 Essential hypertension, benign [I10] 06/16/2022 S/P shoulder surgery [Z98.890] 07/02/2022 Neck pain [M54.2] 11/29/2022 History of peptic ulcer disease [Z87.11] 12/21/2023 Encounter Status:Closed by LUZ MAC on 04/26/24 [facility] 03-26-2024 Note HNO ID: [id number] Author: LUZ MAC RN Service: ? Author Type: Registered Nurse Type: Progress Notes Filed: 03/26/2024 17:52 Note Text: CDM Telephonic Outreach Provider Action/FYI Patient states: -doing well -busy working most times/day winding down -no SOB -uses inhaler usually couple times a day -aware needs to tack picker inhaler rx/notification received from pharmacy Contacted for: Routine Telephonic Outreach Contact made with patient: Yes Patient identified by name and date of . Discussed care with patient Are you experiencing any new or worsening symptoms you need to talk about today? No Disease Specific Do you check your blood pressure at home? No Do you have new or worsening shortness of breath with activity? No Do you have new or worsening cough? No Do you have new or worsening wheezing? No Do you need to use your rescue (Albuterol) inhaler or nebulizer more often than normal? No Based on hadoop administrator, the following disposition is advised: No symptoms or symptoms present, not severe. Routed to: No Action Needed ANTONIETA Education Provided this Outreach: No Luz Mac RN March 26, 2024 5:52 PM [facility] 03-26-2024 History of Present illness Narrative CDM Telephonic Outreach Provider Action/FYI Patient states: -doing well -busy working most times/day winding down -no SOB -uses inhaler usually couple times a day -aware needs to tack picker inhaler rx/notification received from pharmacy Contacted for: Routine Telephonic Outreach Contact made with patient: Yes Patient identified by name and date of . Discussed care with patient Are you experiencing any new or worsening symptoms you need to talk about today? No Disease Specific Do you check your blood pressure at home? No Do you have new or worsening shortness of breath with activity? No Do you have new or worsening cough? No Do you have new or worsening wheezing? No Do you need to use your rescue (Albuterol) inhaler or nebulizer more often than normal? No Based on hadoop administrator, the following disposition is advised: No symptoms or symptoms present, not severe. Routed to: No Action Needed ANTONIETA Education Provided this Outreach: No Luz Mac RN March 26, 2024 5:52 PM documented in this encounter [facility] 03-26-2024 Note Patient Outreach ([facility] LORENZO REIS ([id number]) 1955 M Date Time Provider Department 03/26/24 LUZ MAC AM[facility] During your visit today, we recorded the following information about you: Luz Mac RN 03/26/2024 5:52 PM Signed [facility] Telephonic Outreach Provider Action/FYI Patient states: -doing well -busy working most times/day winding down -no SOB -uses inhaler usually couple times a day -aware needs to tack picker inhaler rx/notification received from pharmacy Contacted for: Routine Telephonic Outreach Contact made with patient: Yes Patient identified by name and date of . Discussed care with patient Are you experiencing any new or worsening symptoms you need to talk about today? No Disease Specific Do you check your blood pressure at home? No Do you have new or worsening shortness of breath with activity? No Do you have new or worsening cough? No Do you have new or worsening wheezing? No Do you need to use your rescue (Albuterol) inhaler or nebulizer more often than normal? No Based on hadoop administrator, the following disposition is advised: No symptoms or symptoms present, not severe. Routed to: No Action Needed ANTONIETA Education Provided this Outreach: No Luz Mac RN March 26, 2024 5:52 PM Allergies As of Date: 03/26/2024 Noted Allergy Reaction BEES 10/14/2005 7 - Swelling Comments: Pt has been through desensitization. Date Reviewed: 12/26/2023 Reviewed by: Xiomy Camarena, RN - Fully Assessed Reason for Visit: Community Monitoring Outreach [Other] Cmt: [facility] Telephonic Outreach Prescriptions as of 03/26/2024 - prasugrel (EFFIENT) 10 mg tab Take 1 tablet by mouth once daily. Start with 60 mg (6 tablets) loading dose after you stop brilinta, then continue with 1 tablet (10 mg) once daily thereafter. - finasteride (PROSCAR) 5 mg tablet Take 1 tablet by mouth once daily. - atorvastatin (LIPITOR) 80 mg tablet Take 1 tablet by mouth daily at bedtime. - levothyroxine (SYNTHROID) 175 mcg tablet Take 1 tablet by mouth once daily. Take on empty stomach. For thyroid - albuterol HFA (PROVENTIL HFA, VENTOLIN HFA) 90 mcg/actuation inhaler Shake well then inhale 2 to 4 puffs as instructed every 6 hours as needed for wheezing/shortness of breath. - metoprolol tartrate, short acting, (LOPRESSOR) 25 mg tablet Take 1 tablet by mouth two times a day. - acetaminophen (TYLENOL) 325 mg tablet Take 2 tablets by mouth every 4 hours as needed for pain or fever (specify). Meds Comments as of 10/12/2016: Problem List As Of Date 03/26/2024 Noted Resolved Pure hypercholesterolemia [E78.00] 04/26/2011 Hypothyroidism [E03.9] 10/14/2005 09/25/2021 Mixed hyperlipidemia [E78.2] 10/14/2005 Benign neoplasm of colon [D12.6] 10/21/2006 12/20/2014 Ingrowing nail [L60.0] 06/09/2007 12/20/2014 UMBILICAL HERNIA [K42.9] 02/26/2009 Shoulder arthritis [M19.019] 05/18/2011 Unspecified gastritis and gastroduodenitis with*06/25/2011 12/20/2014 Benign neoplasm of rectum and anal canal [D12.8*06/25/2011 12/20/2014 Family history of prostate cancer [Z80.42] 10/16/2013 Elevated PSA [R97.20] 06/11/2014 BPH (benign prostatic hyperplasia) [N40.0] 06/11/2014 Frequency of micturition [R35.0] 06/11/2014 Acquired hypothyroidism [E03.9] 01/16/2016 Colon cancer screening [Z12.11] 08/05/2016 08/05/2016 Benign non-nodular prostatic hyperplasia [N40.0]08/16/2016 Chronic prostatitis [N41.1] 08/16/2016 Tendonitis, Achilles, right [M76.61] 05/26/2018 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] 05/26/2018 Calcaneal spur, right [M77.31] 05/26/2018 06/28/2018 Post-operative state [Z98.890] 08/11/2018 09/25/2021 Smoker [F17.200] 05/06/2020 History of pulmonary embolism [Z86.711] 05/19/2020 Hypokalemia [E87.6] 05/19/2020 09/25/2021 Flu-like symptoms [R68.89] 05/19/2020 09/25/2021 Lightheadedness [R42] 05/19/2020 09/25/2021 Bilateral pulmonary embolism (HCC) [I26.99] 05/19/2020 10/06/2021 Malnutrition of mild degree (HCC) [E44.1] 05/20/2020 11/12/2022 Obesity, Class I, BMI 30-34.9 [E66.9] 05/20/2020 Pulmonary nodules [R91.8] 05/20/2020 Multiple lacunar infarcts (HCC) [I63.81] 05/21/2020 Nocturia [R35.1] 10/01/2020 Unstable angina (HCC) [I20.0] 09/20/2021 09/25/2021 History of pulmonary embolus (PE) [Z86.711] 09/20/2021 Acute bronchitis [J20.9] 09/21/2021 09/24/2021 2V CAD s/p complex PCI (09/23/21) [I25.10] 09/22/2021 Unstable angina (HCC) [I20.0] 09/26/2021 09/26/2021 Essential hypertension, benign [I10] 06/16/2022 S/P shoulder surgery [Z98.890] 07/02/2022 Neck pain [M54.2] 11/29/2022 History of peptic ulcer disease [Z87.11] 12/21/2023 Encounter Status:Closed by LUZ MAC on 03/26/24 [facility] 03-21-2024 Note HNO ID: [id number] Author: LUZ MAC, RN Service: ? Author Type: Registered Nurse Type: Progress Notes Filed: 03/21/2024 16:25 Note Text: [facility] Telephonic Outreach Provider Action/FYI Contacted for: Routine Telephonic Outreach Contact made with patient: No, left message. Luz Mac RN March 21, 2024 4:25 PM [facility] 03-21-2024 History of Present illness Narrative [facility] Telephonic Outreach Provider Action/FYI Contacted for: Routine Telephonic Outreach Contact made with patient: No, left message. Luz Mac RN March 21, 2024 4:25 PM documented in this encounter [facility] 03-21-2024 Note Patient Outreach ([facility]) LORENZO REIS ([id number]) 1955 M Date Time Provider Department 03/21/24 LUZ MAC [facility] During your visit today, we recorded the following information about you: Luz Mac RN 03/21/2024 4:25 PM Signed [facility] Telephonic Outreach Provider Action/FYAmber Contacted for: Routine Telephonic Outreach Contact made with patient: No, left message. Luz Mac RN March 21, 2024 4:25 PM Allergies As of Date: 03/21/2024 Noted Allergy Reaction BEES 10/14/2005 7 - Swelling Comments: Pt has been through desensitization. Date Reviewed: 12/26/2023 Reviewed by: Xiomy Camarena, LESLEY - Fully Assessed Reason for Visit: Community Monitoring Outreach [Other] Cmt: [facility] Telephonic Outreach Prescriptions as of 03/21/2024 - prasugrel (EFFIENT) 10 mg tab Take 1 tablet by mouth once daily. Start with 60 mg (6 tablets) loading dose after you stop brilinta, then continue with 1 tablet (10 mg) once daily thereafter. - finasteride (PROSCAR) 5 mg tablet Take 1 tablet by mouth once daily. - atorvastatin (LIPITOR) 80 mg tablet Take 1 tablet by mouth daily at bedtime. - levothyroxine (SYNTHROID) 175 mcg tablet Take 1 tablet by mouth once daily. Take on empty stomach. For thyroid - albuterol HFA (PROVENTIL HFA, VENTOLIN HFA) 90 mcg/actuation inhaler Shake well then inhale 2 to 4 puffs as instructed every 6 hours as needed for wheezing/shortness of breath. - metoprolol tartrate, short acting, (LOPRESSOR) 25 mg tablet Take 1 tablet by mouth two times a day. - acetaminophen (TYLENOL) 325 mg tablet Take 2 tablets by mouth every 4 hours as needed for pain or fever (specify). Meds Comments as of 10/12/2016: Problem List As Of Date 03/21/2024 Noted Resolved Pure hypercholesterolemia [E78.00] 04/26/2011 Hypothyroidism [E03.9] 10/14/2005 09/25/2021 Mixed hyperlipidemia [E78.2] 10/14/2005 Benign neoplasm of colon [D12.6] 10/21/2006 12/20/2014 Ingrowing nail [L60.0] 06/09/2007 12/20/2014 UMBILICAL HERNIA [K42.9] 02/26/2009 Shoulder arthritis [M19.019] 05/18/2011 Unspecified gastritis and gastroduodenitis with*06/25/2011 12/20/2014 Benign neoplasm of rectum and anal canal [D12.8*06/25/2011 12/20/2014 Family history of prostate cancer [Z80.42] 10/16/2013 Elevated PSA [R97.20] 06/11/2014 BPH (benign prostatic hyperplasia) [N40.0] 06/11/2014 Frequency of micturition [R35.0] 06/11/2014 Acquired hypothyroidism [E03.9] 01/16/2016 Colon cancer screening [Z12.11] 08/05/2016 08/05/2016 Benign non-nodular prostatic hyperplasia [N40.0]08/16/2016 Chronic prostatitis [N41.1] 08/16/2016 Tendonitis, Achilles, right [M76.61] 05/26/2018 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] 05/26/2018 Calcaneal spur, right [M77.31] 05/26/2018 06/28/2018 Post-operative state [Z98.890] 08/11/2018 09/25/2021 Smoker [F17.200] 05/06/2020 History of pulmonary embolism [Z86.711] 05/19/2020 Hypokalemia [E87.6] 05/19/2020 09/25/2021 Flu-like symptoms [R68.89] 05/19/2020 09/25/2021 Lightheadedness [R42] 05/19/2020 09/25/2021 Bilateral pulmonary embolism (HCC) [I26.99] 05/19/2020 10/06/2021 Malnutrition of mild degree (HCC) [E44.1] 05/20/2020 11/12/2022 Obesity, Class I, BMI 30-34.9 [E66.9] 05/20/2020 Pulmonary nodules [R91.8] 05/20/2020 Multiple lacunar infarcts (HCC) [I63.81] 05/21/2020 Nocturia [R35.1] 10/01/2020 Unstable angina (HCC) [I20.0] 09/20/2021 09/25/2021 History of pulmonary embolus (PE) [Z86.711] 09/20/2021 Acute bronchitis [J20.9] 09/21/2021 09/24/2021 2V CAD s/p complex PCI (09/23/21) [I25.10] 09/22/2021 Unstable angina (HCC) [I20.0] 09/26/2021 09/26/2021 Essential hypertension, benign [I10] 06/16/2022 S/P shoulder surgery [Z98.890] 07/02/2022 Neck pain [M54.2] 11/29/2022 History of peptic ulcer disease [Z87.11] 12/21/2023 Encounter Status:Closed by LUZ MAC on 03/21/24 [facility] 03-01-2024 Note HNO ID: [id number] Author: LUZ MAC, RN Service: ? Author Type: Registered Nurse Type: Progress Notes Filed: 03/01/2024 16:31 Note Text: [facility] Telephonic Outreach Provider Action/FYI Calls 2x dropped. Contacted for: Routine Telephonic Outreach Contact made with patient: No, unable to leave message. Will reattempt call Luz Mac RN March 01, 2024 4:30 PM [facility] 03-01-2024 History of Present illness Narrative [facility] Telephonic Outreach Provider Action/FYI Calls 2x dropped. Contacted for: Routine Telephonic Outreach Contact made with patient: No, unable to leave message. Will reattempt call Luz Mac RN March 01, 2024 4:30 PM documented in this encounter [facility] 03-01-2024 Note Patient Outreach ([facility]) LORENZO REIS ([id number]) 1955 M Date Time Provider Department 03/01/24 LUZ MAC [facility] During your visit today, we recorded the following information about you: Luz Mac RN 03/01/2024 4:31 PM Signed [facility] Telephonic Outreach Provider Action/FYI Calls 2x dropped. Contacted for: Routine Telephonic Outreach Contact made with patient: No, unable to leave message. Will reattempt call Luz Mac RN March 01, 2024 4:30 PM Allergies As of Date: 03/01/2024 Noted Allergy Reaction BEES 10/14/2005 7 - Swelling Comments: Pt has been through desensitization. Date Reviewed: 12/26/2023 Reviewed by: Xiomy Camarena RN - Fully Assessed Reason for Visit: Community Monitoring Outreach [Other] Cmt: [facility] Telephonic Outreach Prescriptions as of 03/01/2024 - prasugrel (EFFIENT) 10 mg tab Take 1 tablet by mouth once daily. Start with 60 mg (6 tablets) loading dose after you stop brilinta, then continue with 1 tablet (10 mg) once daily thereafter. - finasteride (PROSCAR) 5 mg tablet Take 1 tablet by mouth once daily. - atorvastatin (LIPITOR) 80 mg tablet Take 1 tablet by mouth daily at bedtime. - levothyroxine (SYNTHROID) 175 mcg tablet Take 1 tablet by mouth once daily. Take on empty stomach. For thyroid - albuterol HFA (PROVENTIL HFA, VENTOLIN HFA) 90 mcg/actuation inhaler Shake well then inhale 2 to 4 puffs as instructed every 6 hours as needed for wheezing/shortness of breath. - metoprolol tartrate, short acting, (LOPRESSOR) 25 mg tablet Take 1 tablet by mouth two times a day. - acetaminophen (TYLENOL) 325 mg tablet Take 2 tablets by mouth every 4 hours as needed for pain or fever (specify). Meds Comments as of 10/12/2016: Problem List As Of Date 03/01/2024 Noted Resolved Pure hypercholesterolemia [E78.00] 04/26/2011 Hypothyroidism [E03.9] 10/14/2005 09/25/2021 Mixed hyperlipidemia [E78.2] 10/14/2005 Benign neoplasm of colon [D12.6] 10/21/2006 12/20/2014 Ingrowing nail [L60.0] 06/09/2007 12/20/2014 UMBILICAL HERNIA [K42.9] 02/26/2009 Shoulder arthritis [M19.019] 05/18/2011 Unspecified gastritis and gastroduodenitis with*06/25/2011 12/20/2014 Benign neoplasm of rectum and anal canal [D12.8*06/25/2011 12/20/2014 Family history of prostate cancer [Z80.42] 10/16/2013 Elevated PSA [R97.20] 06/11/2014 BPH (benign prostatic hyperplasia) [N40.0] 06/11/2014 Frequency of micturition [R35.0] 06/11/2014 Acquired hypothyroidism [E03.9] 01/16/2016 Colon cancer screening [Z12.11] 08/05/2016 08/05/2016 Benign non-nodular prostatic hyperplasia [N40.0]08/16/2016 Chronic prostatitis [N41.1] 08/16/2016 Tendonitis, Achilles, right [M76.61] 05/26/2018 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] 05/26/2018 Calcaneal spur, right [M77.31] 05/26/2018 06/28/2018 Post-operative state [Z98.890] 08/11/2018 09/25/2021 Smoker [F17.200] 05/06/2020 History of pulmonary embolism [Z86.711] 05/19/2020 Hypokalemia [E87.6] 05/19/2020 09/25/2021 Flu-like symptoms [R68.89] 05/19/2020 09/25/2021 Lightheadedness [R42] 05/19/2020 09/25/2021 Bilateral pulmonary embolism (HCC) [I26.99] 05/19/2020 10/06/2021 Malnutrition of mild degree (HCC) [E44.1] 05/20/2020 11/12/2022 Obesity, Class I, BMI 30-34.9 [E66.9] 05/20/2020 Pulmonary nodules [R91.8] 05/20/2020 Multiple lacunar infarcts (HCC) [I63.81] 05/21/2020 Nocturia [R35.1] 10/01/2020 Unstable angina (HCC) [I20.0] 09/20/2021 09/25/2021 History of pulmonary embolus (PE) [Z86.711] 09/20/2021 Acute bronchitis [J20.9] 09/21/2021 09/24/2021 2V CAD s/p complex PCI (09/23/21) [I25.10] 09/22/2021 Unstable angina (HCC) [I20.0] 09/26/2021 09/26/2021 Essential hypertension, benign [I10] 06/16/2022 S/P shoulder surgery [Z98.890] 07/02/2022 Neck pain [M54.2] 11/29/2022 History of peptic ulcer disease [Z87.11] 12/21/2023 Encounter Status:Closed by LUZ MAC on 03/01/24 [facility] 01-24-2024 Note HNO ID: [id number] Author: LUZ MAC RN Service: ? Author Type: Registered Nurse Type: Progress Notes Filed: 01/24/2024 16:24 Note Text: [facility] Telephonic Outreach Provider Action/FYI Patient states: -working at time of call -doing well/thinks meds are up to date -staying hydrated w/ water Contacted for: Routine Telephonic Outreach Contact made with patient: Yes Patient identified by name and date of . Discussed care with patient Are you experiencing any new or worsening symptoms you need to talk about today? No Disease Specific Do you check your blood pressure at home? No Do you have new or worsening shortness of breath with activity? No Do you have new or worsening trouble breathing while lying flat? No Do you have new or worsening swelling of legs, feet or ankles? No Do you check your daily weight at home? Yes, Have you noticed a sudden gain in weight greater than three pounds in a day or three pounds in a week? No Based on hadoop administrator, the following disposition is advised: No symptoms or symptoms present, not severe. Routed to: No Action Needed ANTONIETA Education Provided this Outreach: No Luz Mac RN January 24, 2024 4:24 PM [facility] 01-24-2024 History of Present illness Narrative [facility] Telephonic Outreach Provider Action/FYI Patient states: -working at time of call -doing well/thinks meds are up to date -staying hydrated w/ water Contacted for: Routine Telephonic Outreach Contact made with patient: Yes Patient identified by name and date of . Discussed care with patient Are you experiencing any new or worsening symptoms you need to talk about today? No Disease Specific Do you check your blood pressure at home? No Do you have new or worsening shortness of breath with activity? No Do you have new or worsening trouble breathing while lying flat? No Do you have new or worsening swelling of legs, feet or ankles? No Do you check your daily weight at home? Yes, Have you noticed a sudden gain in weight greater than three pounds in a day or three pounds in a week? No Based on hadoop administrator, the following disposition is advised: No symptoms or symptoms present, not severe. Routed to: No Action Needed ANTONIETA Education Provided this Outreach: No Luz Mac RN January 24, 2024 4:24 PM documented in this encounter [facility] 01-24-2024 Note Patient Outreach ([facility] LORENZO REIS ([id number]) 1955 M Date Time Provider Department 01/24/24 LUZ MAC [facility] During your visit today, we recorded the following information about you: Luz Mac RN 01/24/2024 4:24 PM Signed CD Telephonic Outreach Provider Action/FYI Patient states: -working at time of call -doing well/thinks meds are up to date -staying hydrated w/ water Contacted for: Routine Telephonic Outreach Contact made with patient: Yes Patient identified by name and date of . Discussed care with patient Are you experiencing any new or worsening symptoms you need to talk about today? No Disease Specific Do you check your blood pressure at home? No Do you have new or worsening shortness of breath with activity? No Do you have new or worsening trouble breathing while lying flat? No Do you have new or worsening swelling of legs, feet or ankles? No Do you check your daily weight at home? Yes, Have you noticed a sudden gain in weight greater than three pounds in a day or three pounds in a week? No Based on hadoop administrator, the following disposition is advised: No symptoms or symptoms present, not severe. Routed to: No Action Needed ANTONIETA Education Provided this Outreach: No Luz Mac RN January 24, 2024 4:24 PM Allergies As of Date: 01/24/2024 Noted Allergy Reaction BEES 10/14/2005 7 - Swelling Comments: Pt has been through desensitization. Date Reviewed: 12/26/2023 Reviewed by: Xiomy Camarena, RN - Fully Assessed Reason for Visit: Community Monitoring Outreach [Other] Cmt: [facility] Telephonic Outreach Prescriptions as of 01/24/2024 - prasugrel (EFFIENT) 10 mg tab Take 1 tablet by mouth once daily. Start with 60 mg (6 tablets) loading dose after you stop brilinta, then continue with 1 tablet (10 mg) once daily thereafter. - finasteride (PROSCAR) 5 mg tablet Take 1 tablet by mouth once daily. - atorvastatin (LIPITOR) 80 mg tablet Take 1 tablet by mouth daily at bedtime. - levothyroxine (SYNTHROID) 175 mcg tablet Take 1 tablet by mouth once daily. Take on empty stomach. For thyroid - albuterol HFA (PROVENTIL HFA, VENTOLIN HFA) 90 mcg/actuation inhaler Shake well then inhale 2 to 4 puffs as instructed every 6 hours as needed for wheezing/shortness of breath. - metoprolol tartrate, short acting, (LOPRESSOR) 25 mg tablet Take 1 tablet by mouth two times a day. - acetaminophen (TYLENOL) 325 mg tablet Take 2 tablets by mouth every 4 hours as needed for pain or fever (specify). Meds Comments as of 10/12/2016: Problem List As Of Date 01/24/2024 Noted Resolved Pure hypercholesterolemia [E78.00] 04/26/2011 Hypothyroidism [E03.9] 10/14/2005 09/25/2021 Mixed hyperlipidemia [E78.2] 10/14/2005 Benign neoplasm of colon [D12.6] 10/21/2006 12/20/2014 Ingrowing nail [L60.0] 06/09/2007 12/20/2014 UMBILICAL HERNIA [K42.9] 02/26/2009 Shoulder arthritis [M19.019] 05/18/2011 Unspecified gastritis and gastroduodenitis with*06/25/2011 12/20/2014 Benign neoplasm of rectum and anal canal [D12.8*06/25/2011 12/20/2014 Family history of prostate cancer [Z80.42] 10/16/2013 Elevated PSA [R97.20] 06/11/2014 BPH (benign prostatic hyperplasia) [N40.0] 06/11/2014 Frequency of micturition [R35.0] 06/11/2014 Acquired hypothyroidism [E03.9] 01/16/2016 Colon cancer screening [Z12.11] 08/05/2016 08/05/2016 Benign non-nodular prostatic hyperplasia [N40.0]08/16/2016 Chronic prostatitis [N41.1] 08/16/2016 Tendonitis, Achilles, right [M76.61] 05/26/2018 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] 05/26/2018 Calcaneal spur, right [M77.31] 05/26/2018 06/28/2018 Post-operative state [Z98.890] 08/11/2018 09/25/2021 Smoker [F17.200] 05/06/2020 History of pulmonary embolism [Z86.711] 05/19/2020 Hypokalemia [E87.6] 05/19/2020 09/25/2021 Flu-like symptoms [R68.89] 05/19/2020 09/25/2021 Lightheadedness [R42] 05/19/2020 09/25/2021 Bilateral pulmonary embolism (HCC) [I26.99] 05/19/2020 10/06/2021 Malnutrition of mild degree (HCC) [E44.1] 05/20/2020 11/12/2022 Obesity, Class I, BMI 30-34.9 [E66.9] 05/20/2020 Pulmonary nodules [R91.8] 05/20/2020 Multiple lacunar infarcts (HCC) [I63.81] 05/21/2020 Nocturia [R35.1] 10/01/2020 Unstable angina (HCC) [I20.0] 09/20/2021 09/25/2021 History of pulmonary embolus (PE) [Z86.711] 09/20/2021 Acute bronchitis [J20.9] 09/21/2021 09/24/2021 2V CAD s/p complex PCI (09/23/21) [I25.10] 09/22/2021 Unstable angina (HCC) [I20.0] 09/26/2021 09/26/2021 Essential hypertension, benign [I10] 06/16/2022 S/P shoulder surgery [Z98.890] 07/02/2022 Neck pain [M54.2] 11/29/2022 History of peptic ulcer disease [Z87.11] 12/21/2023 Encounter Status:Closed by LUZ MAC on 01/24/24 [facility] 12-27-2023 Telephone encounter Note Images from the original note were not included. Mark Ramirez MD [place], Breanna Breanna, Yes, he may stop the Effient 5 days prior to the colonoscopy. He is optimally cleared from a medical standpoint to proceed with the colonoscopy as planned. Mark Ramirez MD Previous Messages ----- Message ----- From: Tamy Pena Sent: 12/26/2023 2:34 PM EDT To: Mark Ramirez MD Subject: BLOOD THINNER Hello Dr. Ramirez , The above patient was seen by Sima Mays CNP and is scheduled for a Colonoscopy with Dr. Dr. Alves under [facility] on 05/04/2024. Provider is wanting to know if patient can remain off EFFIENT for 5 days prior to procedure? Please let me know if this patient is optimally cleared from a medical standpoint to proceed. Thank you in advance Tamy Pena [employer] [facility] 12-27-2023 Miscellaneous Notes Images from the original note were not included. Mark Ramirez MD Hammond, Breanna Breanna, Yes, he may stop the Effient 5 days prior to the colonoscopy. He is optimally cleared from a medical standpoint to proceed with the colonoscopy as planned. Mark Ramirez MD Previous Messages ----- Message ----- From: Tamy Pena Sent: 12/26/2023 2:34 PM EDT To: Mark Ramirez MD Subject: BLOOD THINNER Hello Dr. Ramirez , The above patient was seen by Sima Mays CNP and is scheduled for a Colonoscopy with Dr. Dr. Alves under [facility] on 05/04/2024. Provider is wanting to know if patient can remain off EFFIENT for 5 days prior to procedure? Please let me know if this patient is optimally cleared from a medical standpoint to proceed. Thank you in advance Tamy Pena [employer] Patient scheduled 05/04/2024 and Per Sima Mays CNP patient to get medical clearance to stop EFFIENT 5 days prior to procedure. Message sent to patient PCP for clearance Tamy Pena [employer] documented in this encounter [facility] 12-26-2023 Telephone encounter Note Patient scheduled 05/04/2024 and Per Sima Mays CNP patient to get medical clearance to stop EFFIENT 5 days prior to procedure. Message sent to patient PCP for clearance Tamy Pena [employer] [facility] 12-26-2023 Instructions Sima Mays APRN.[employer] - 12/26/2023 1:56 PM EDT Images from the original note were not included. Bowel Preparation Instructions for: Miralax-Gatorade Preparations IF YOU DO NOT FOLLOW THESE DIRECTIONS, YOUR COLONOSCOPY WILL BE CANCELLED. [place] Instructions: Your bowel must be empty so that your doctor can clearly view your colon. Follow all of the instructions in this handout EXACTLY as they are written. Do NOT eat any solid food the ENTIRE day before your colonoscopy. Buy your bowel preparation at least 5 days before your colonoscopy. Four (4) Dulcolax laxative tablets containing 5mg of bisacodyl each (NOT Dulcolax stool softener) One (1) 8.3oz. bottle Miralax (238 grams) or generic equivalent 2 x 32oz. Bottles of Gatorade (NOT RED) Diabetic Patients: Use G2 (Gatorade 2) TRANSPORTATION on the Day of Your Exam A responsible adult MUST be present with you at Check In prior to your colonoscopy and REMAIN in the endoscopy area until you are discharged. You are NOT ALLOWED to drive, take a taxi or bus, or leave the Endoscopy Center ALONE. If you do not have a responsible special needs bus driver (family member or friend) with you to take you home, your exam cannot be done with sedation and will be cancelled. Please bring a list of all of your current medications, including any [id number]-[id number] medications with you. Medications If you take insulin, diabetic medications or blood thinners such as Coumadin (warfarin), Plavix (clopidogrel), Ticlid (ticlopidine hydrochloride), Agrylin (anagrelide), Xarelto (Rivaroxaban), Pradaxa (Dabigatran), Eliquis (Apixaban), and Effient (Prasugrel). You MUST call the doctors who orders those medicines for instructions on altering the dosage before your colonoscopy. All other medications should be taken the day of the exam with a sip of water including ASPIRIN. Five (5) Days Before Your Colonoscopy Do NOT take medicines that stop diarrhea - such as Imodium, Kaopectate, or Pepto Bismol. Do NOT take fiber supplements - such as Metamucil, Citrucel, or Perdiem. Do NOT take products that contain iron - such as multi-vitamins (the label lists what is in the products). Three (3) Days Before Your Colonoscopy Do NOT eat high-fiber foods - such as popcorn, beans, seeds (flax, sunflower, quinoa), multigrain bread, nuts, salad/vegetables, or fresh and dried fruit. 1 Bowel Preparation Instructions for: Miralax-Gatorade Preparations One (1) Day Before Your Colonoscopy Only drink clear liquids the ENTIRE DAY before your colonoscopy. Do NOT eat any solid foods. Drink at least 8 ounces of clear liquids every hour after waking up. The clear liquids you can drink include: Clear Liquid (NO RED LIQUIDS) DO NOT DRINK Gatorade, Pedialyte or Powerade Clear broth or bouillon Coffee or tea (no milk or non-dairy creamer) Carbonated and non-carbonated soft drinks Samuel-Aid or other fruit flavored drinks Strained fruit juices (no pulp) Jell-O, popsicles, hard candy Water Alcohol Milk or non-dairy creamers Noodles or vegetables in soup Juice with pulp Liquid you cannot see through Do not use tobacco/vaping products Mix 1/2 of Miralax bottle (119 grams) in each 32 ounces of Gatorade bottle until dissolved. Keep cool in the refrigerator. DO NOT ADD ICE. The bowel preparation solution will be consumed in two parts. Part 1 5:00 PM - Evening before your colonoscopy Take 4 Dulcolax tablets. 6 PM - Evening before your colonoscopy Drink 32 oz. of the mixed solution. Drink an 8 oz. glass of bowel preparation every 15 minutes for a total of 4 glasses. Fifteen (15) minutes later, drink an 8 oz. glass of of clear liquids every 15 minutes for a total of 2 glasses. You may continue to drink clear liquids till midnight. Part 2 On the day of your colonoscopy you may drink clear liquids up to (three) 3 hours prior to procedure. 4 1/2 hours before your colonoscopy Take another 32 oz. bottle of mixed solution. Drink an 8 oz. glass of bowel prep every 15 minutes for a total of 4 glasses. Fifteen (15) minutes later, drink an 8 oz. glass of clear liquids every 15 minutes for a total of 2 glasses. You may continue to drink clear liquids up to (three) 3 hours before your exam. 2 06/2019 documented in this encounter [facility] 12-26-2023 History of Present illness Narrative HISTORY AND PHYSICAL Lorenzo Reis : 1955 REFERRING PHYSICIAN: Mark Ramirez [address] [facility] [id number] CHIEF COMPLAINT: Patient presents with: Colonoscopy Consult HPI: Lorenzo is a 68 year old male referred for endoscopy. Lorenzo notes personal history of colonic polyps. Patient denies any change in bowel habits, weight changes, blood in stools, black tarry stools or abdominal pain. Refers family history of colon issues.- father with colon cancer Lorenzo notes no upper GI complaints. Lorenzo has undergone prior endoscopy. Lorenzo has a history of CAD with stenting of LCX & RCA. Pt currently takes Effient but has not had follow up with cardiology since 2021. Lorenzo denies SOB, CP, or palpitations Last colonoscopy in 12/[address] Kovacs Impression: - Five small polyps in the sigmoid colon, in the transverse colon and in the cecum, removed with a cold snare. Resected and retrieved. Clips (MR conditional) were placed. - Diverticulosis in the sigmoid colon. - The examination was otherwise normal on direct and retroflexion views. Pathology: 1. Colon, cecum, polypectomy (A) - Serrated polyp, favor sessile serrated polyp (deeper levels examined). 2. Colon, proximal transverse, polypectomy (B) - Tubular adenoma. 3. Colon, sigmoid, polypectomy (C) - Hyperplastic polyp. KL/mm/12/24/2020 Current Outpatient Medications Medication Sig levothyroxine (SYNTHROID) 175 mcg tablet Take 1 tablet by mouth once daily. Take on empty stomach. For thyroid albuterol HFA (PROVENTIL HFA, VENTOLIN HFA) 90 mcg/actuation inhaler Shake well then inhale 2 to 4 puffs as instructed every 6 hours as needed for wheezing/shortness of breath. metoprolol tartrate, short acting, (LOPRESSOR) 25 mg tablet Take 1 tablet by mouth two times a day. acetaminophen (TYLENOL) 325 mg tablet Take 2 tablets by mouth every 4 hours as needed for pain or fever (specify). prasugrel (EFFIENT) 10 mg tab Take 1 tablet by mouth once daily. Start with 60 mg (6 tablets) loading dose after you stop brilinta, then continue with 1 tablet (10 mg) once daily thereafter. finasteride (PROSCAR) 5 mg tablet Take 1 tablet by mouth once daily. atorvastatin (LIPITOR) 80 mg tablet Take 1 tablet by mouth daily at bedtime. No current facility-administered medications for this visit. ALLERGIES: Bees PAST MEDICAL HISTORY Diagnosis Date Acute pulmonary embolism (HCC) 06/2020 unknown cause; pt on Eliquis Benign neoplasm of rectum and anal canal History of peptic ulcer disease Pure hypercholesterolemia Snoring Tobacco use Unspecified hypothyroidism PAST SURGICAL HISTORY Procedure Laterality Date COLONOSCOPY FLX DX W/COLLJ SPEC WHEN PFRMD 06/16/2009 Colonoscopy COLONOSCOPY FLX DX W/COLLJ SPEC WHEN PFRMD 08/05/2016 Colonoscopy COLONOSCOPY FLX DX W/COLLJ SPEC WHEN PFRMD 02/15/2018 multiple adenomatous polyps, repeat in 3 years COLONOSCOPY FLX DX W/COLLJ SPEC WHEN PFRMD 12/23/2020 COLSC FLX W/RMVL OF TUMOR POLYP LESION SNARE TQ 10/21/2006 Large polyp at 50cm, 3 small sessile polyps in low rectosigmoid COLSC FLX W/RMVL OF TUMOR POLYP LESION SNARE TQ 06/25/2011 polyp in rectum DIAGNOSIS/HISTORY left 5th finger, laceration repair HERNIA REPAIR HX PAST SURGICAL HISTORY OF Right 1980 right shoulder Dislocated collar bone, ORIF Dr. Kilgore PAST SURGICAL HISTORY OF N/A 08/20/2020 Prostate biopsy RPR PRIMARY OPEN/PRQ RUPTURED ACHILLES W/GRAFT Right 2018 RPR UMBILICAL HRNA 5 YRS/> REDUCIBLE 07/15/2009 with mesh FAMILY HISTORY Problem Relation Age of Onset Alzheimer's Disease Mother Coronary Artery Disease Father [place] Prostate Cancer Father Colon Cancer Father Social History Tobacco Use Smoking status: Every Day Packs/day: 1.00 Years: 50.00 Additional pack years: 0.00 Total pack years: 50.00 Types: Cigarettes Start date: 1970 Smokeless tobacco: Never Vaping Use Vaping Use: Never used Substance Use Topics Alcohol use: Yes Comment: less than 6 beers a week Drug use: No REVIEW OF SYMPTOMS: REVIEW OF SYSTEMS: General: The patient denies fatigue, denies weight loss, denies weight gain, denies feeling hot, and feelings of cold. Cardiovascular: The patient denies chest pain, denies heart disease, denies high blood pressure, denies high cholesterol, and denies poor circulation. Respiratory: The patient denies tuberculosis, denies pneumonia, denies frequent cough, denies shortness of breath, and denies coughing up blood. Gastrointestinal: The patient denies difficulty swallowing, denies acid reflux, denies ulcers, denies jaundice/hepatitis, denies gallbladder problems, denies vomiting, denies black or tarry stools, denies hemorrhoids, denies bleeding from rectum, denies diverticulitis, denies constipation, denies diarrhea, denies loss of stool control, and denies hernias. Kidney/Bladder: The patient denies kidney stones, denies urine infections, and denies bloody urine. Skin: The patient denies a history of skin cancer, denies bleeding/changing moles, and denies a history of skin rash. Neurologic: The patient denies a history of epilepsy/convulsions, denies headaches, denies head/spinal injuries, and denies stroke/TIA. Psychiatric: The patient denies psychiatric medications, denies depression, and denies voices. Endocrine: The patient denies thyroid disorders, denies diabetes, and denies hormonal problems. Hematologic: The patient denies a history of bruising, denies bleeding, and denies anemia. PHYSICAL EXAMINATION: General: The patient is 68 year old, male well nourished, well hydrated in no acute distress. The patient is oriented to time, place, and person. VITALS: Blood pressure 148/86, pulse 72, temperature 36.7 C (98 F), resp. rate 20, height 175.3 cm (5' 9), weight 92.5 kg (204 lb), SpO2 96%. Body mass index is 30.13 kg/m . HEENT: Normal cephalic, ataumatic, pupils are equally round, sclera are anicteric, mucous membranes are moist, oropharynx is clear. Neck has no masses, asymmetry or lymphadenopathy. Respiratory: Clear to auscultation and percussion. Normal respiratory excursion and pattern. Cardiac: Examination is regular rate and rhythm. Normal S1/S2 Abdominal exam: Soft, nontender, with no palpable masses. No hepatosplenomegaly. No palpable hernias. Extremities: no clubbing, cyanosis or edema. No adenopathy. LABORATORY VALUES: As Noted RADIOLOGIC STUDIES: As Noted Assessment IMPRESSION: personal history of colonic polyps, screening for colon cancer, high risk PLAN: I have reviewed my findings with the surgeon. Will plan for lower endoscopy. We discussed the risks and benefits of the planned endoscopy. I have informed the patient that complications can occur including failure to complete the endoscopy and perforation. Lorenzo had the opportunity to ask questions concerning the planned endoscopy. My staff has also explained the procedure to the patient in understandable terms and has given the patient printed material concerning the procedure. Lorenzo freely consents to surgery. I plan to use Miralax bowel preparation I have explained to the patient the difference between IV conscious sedation and MAC anesthesia - and I have offered either, according to the patient's wishes. I have explained that with IV conscious sedation there is no anesthesia provider available and therefore there is a limitation of the amount of IV medications that can be given and that the patient may wake up in the middle of the procedure and/or experience pain/discomfort during the procedure. Further discussion was done and the patient was given the opportunity to ask questions and all questions were answered. MAC anesthesia. Lorenzo was counseled that if there are changes in his/her medical condition, to let the office know if surgery should proceed. If there are changes in patient's medical condition from time of this encounter to the day of the procedure that preclude anesthesia, patient may have procedure cancelled for patient's safety. Diagnoses: (Z87.11) History of peptic ulcer disease (primary encounter diagnosis) (Z12.11) Screening for colon cancer Will be in touch with patient in regards to holding Effient for elective colonoscopy after consulting prescribing provider if he can hold medication prior to scope. Portions of this documentation were copied and pasted from previous office visit notes in order to provide a cohesive continuity of the history. The note has been reviewed and edited and updated as necessary. Sima Mays APRN.WATER [employer]MP INSTALLER documented in this encounter [facility] 12-26-2023 Telephone encounter Note OK to refill as ordered Mark Ramirez MD [facility] 12-26-2023 Miscellaneous Notes OK to refill as ordered Mark Ramirez MD documented in this encounter [facility] 12-21-2023 History of Present illness Narrative CDM Telephonic Outreach Provider Action/FYI Call dropped while speaking to patient. LVM call back attempts. Contacted for: Routine Telephonic Outreach Contact made with patient: No, left message. Luz Mac RN December 21, 2023 10:13 AM documented in this encounter [facility] 11-25-2023 Telephone encounter Note Pt called and notified of results and recommendations below from Provider. Verbalized understanding. 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 Aleisha Casillas MA [facility] 11-25-2023 Miscellaneous Notes Pt called and notified of results and recommendations below from Provider. Verbalized understanding. 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 Aleisha Casillas MA Please notify patient that his lab results are all stable, except his TSH is high, indicating that his thyroid dose is too low. Assuming he has been taking the thyroid medicine daily I would recommend increasing the dose to 175 mcg daily . New Rx done for this. Mark Ramirez MD documented in this encounter [facility] 11-25-2023 Telephone encounter Note Please notify patient that his lab results are all stable, except his TSH is high, indicating that his thyroid dose is too low. Assuming he has been taking the thyroid medicine daily I would recommend increasing the dose to 175 mcg daily . New Rx done for this. Mark Ramirez MD [facility] 11-24-2023 History of Present illness Narrative Chief Complaint Patient presents with: 6 Month Exam HPI Lorenzo Reis is a 68 year old male who presents here today for 6 month follow up. Continued smoker of half ppd. He uses the Albuterol inhaler prn. No interest in quitting. No bowel, Gi, or urinary issues. Uses proscar 5 mg daily. No longer following with Urologist. Fhx colon cancer, father from it at age 89. Last Colonoscopy done in 2020 with repeat in 3 years. HTN: Does not check BP at home. No chest pains, dizziness, or unusual SOB. Does have SOB due to smoking. Taking Lopressor 25 mg 1 pill BID and Effient 10 mg daily. Lipid/CAD: Is on lipitor 80 mg daily, tolerating well. Denies any exercise or watching diet. Used to follow with Cardio Dr. Gomez. Stays active with working. Thyroid: taking Synthroid 150 mcg daily. No missed dosages. Past medical history, appointments, medications, allergies reviewed. Previous Medical History PAST MEDICAL HISTORY Diagnosis Date Acute pulmonary embolism (HCC) 06/2020 unknown cause; pt on Eliquis Benign neoplasm of rectum and anal canal History of peptic ulcer disease Pure hypercholesterolemia Snoring Tobacco use Unspecified hypothyroidism Previous Surgical History PAST SURGICAL HISTORY Procedure Laterality Date COLONOSCOPY FLX DX W/COLLJ SPEC WHEN PFRMD 06/16/2009 Colonoscopy COLONOSCOPY FLX DX W/COLLJ SPEC WHEN PFRMD 08/05/2016 Colonoscopy COLONOSCOPY FLX DX W/COLLJ SPEC WHEN PFRMD 02/15/2018 multiple adenomatous polyps, repeat in 3 years COLONOSCOPY FLX DX W/COLLJ SPEC WHEN PFRMD 12/23/2020 COLSC FLX W/RMVL OF TUMOR POLYP LESION SNARE TQ 10/21/2006 Large polyp at 50cm, 3 small sessile polyps in low rectosigmoid COLSC FLX W/RMVL OF TUMOR POLYP LESION SNARE TQ 06/25/2011 polyp in rectum DIAGNOSIS/HISTORY left 5th finger, laceration repair HERNIA REPAIR HX PAST SURGICAL HISTORY OF Right 1979 right shoulder Dislocated collar bone, ORIF Dr. Kilgore PAST SURGICAL HISTORY OF N/A 08/20/2020 Prostate biopsy RPR PRIMARY OPEN/PRQ RUPTURED ACHILLES W/GRAFT Right 2018 RPR UMBILICAL HRNA 5 YRS/> REDUCIBLE 07/15/2009 with mesh Family History FAMILY HISTORY Problem Relation Age of Onset Alzheimer's Disease Mother Coronary Artery Disease Father [place] Prostate Cancer Father Patient Allergies ALLERGIES Allergen Reactions Bees Swelling Swelling of throat; pt has been through desensition Current Medications Current Outpatient Medications on File Prior to Visit Medication Sig albuterol HFA (PROVENTIL HFA, VENTOLIN HFA) 90 mcg/actuation inhaler Shake well then inhale 2 to 4 puffs as instructed every 6 hours as needed for wheezing/shortness of breath. metoprolol tartrate, short acting, (LOPRESSOR) 25 mg tablet Take 1 tablet by mouth twice daily. finasteride (PROSCAR) 5 mg tablet Take 1 tablet by mouth once daily. levothyroxine (SYNTHROID) 150 mcg tablet Take 1 tablet by mouth once daily. Take on empty stomach. For thyroid atorvastatin (LIPITOR) 80 mg tablet Take 1 tablet by mouth daily at bedtime. prasugrel (EFFIENT) 10 mg tab Take 1 tablet by mouth once daily. Start with 60 mg (6 tablets) loading dose after you stop brilinta, then continue with 1 tablet (10 mg) once daily thereafter. acetaminophen (TYLENOL) 325 mg tablet Take 2 tablets by mouth every 4 hours as needed for pain or fever (specify). No current facility-administered medications on file prior to visit. Social History Social History Tobacco Use Smoking status: Every Day Packs/day: 1.00 Years: 50.00 Additional pack years: 0.00 Total pack years: 50.00 Types: Cigarettes Smokeless tobacco: Never Vaping Use Vaping Use: Never used Substance Use Topics Alcohol use: Not Currently Comment: 12 beers a week Drug use: No EXAM: BP 124/74 Pulse 78 Resp 16 Wt 93.9 kg (207 lb 1.6 oz) BMI 30.58 kg/m General Appearance: Well appearing, alert, in no acute distress, well-hydrated, well nourished.. Lungs: Lungs clear to auscultation. No wheezing, rhonchi, rales.. Heart: RRR without murmur, gallop, or rubs. No ectopy. Health Maintenance List RSV Vaccine(1 - 1-dose 60+ series) Never done Shingrix Vaccine(2 of 2) due on 08/01/2019 Advance Directive Discussion due on 07/18/2023 Behavioral Health Screening Never done Colorectal Cancer Screening due on 12/24/2023 Covid-19 Vaccine( season) due on 11/23/2024 Lung Cancer Screening due on 12/03/2023 LDL Cholesterol due on 05/13/2024 Annual PCP Team Chronic Disease Visit due on 05/13/2024 BP Controlled (<130/80) due on 05/13/2024 Prostate Cancer Screening Discussion due on 02/25/2026 Diabetes Screening due on 05/13/2026 Lipid Screening due on 05/13/2028 DTaP,Tdap,Td Vaccine(4 - Td or Tdap) due on 03/28/2030 Abdominal Aortic Aneurysm Screening Completed Influenza Vaccine Completed Hepatitis C Screening Completed Pneumococcal Vaccine: 65+ Completed Data reviewed none ASSESSMENT/PLAN: 1. Essential hypertension, benign - ICD9: 401.1, ICD10: I10 (primary diagnosis) - Controlled - Continue current medications - Recommend home blood pressure monitoring, to bring results to next visit - Encouraged sodium restriction, DASH or Mediterranean diet - Recommend regular aerobic exercise - Discussed need for and benefit of weight loss. BMI 30.58 kg/(m^2) 2. Acquired hypothyroidism - ICD9: 244.9, ICD10: E03.9 - Instructed patient on importance of taking on an empty stomach either first thing in the morning or at bedtime. Continue current medications. - LEVOTHYROXINE 150 MCG TABLET 3. Mixed hyperlipidemia - ICD9: 272.2, ICD10: E78.2 - Control undetermined, due for labs - Continue current medications - Counseled on healthy diet and regular exercise - Discussed need for and benefit of weight loss. BMI 30.58 kg/(m^2) 4. Smoker - ICD9: 305.1, ICD10: F17.200 - Cessation encouraged. - Physiologic and physical aspects of tobacco addiction as well as strategies for quitting were discussed. - Counseling was given focusing on the harmful effects of this addiction especially given the patient's medical condition(s) which will be worsened because of the chemicals in tobacco. - Counseling was given 3-4 minutes. Get labs done today; notify of results Follow up in 6 months with fasting labs prior. I agree with the Chief Complaint, ROS, and Past Histories independently gathered by the clinical family support coordinator and the remaining scribed note accurately describes my personal service to the patient. Medical Decision Making: Problems: Moderate: 2+ stable chronic illnesses Data: Unique test(s) ordered: 3+ Risk: Moderate: Drug management Medical Decision Making Level: 4 - Moderate Mark Ramirez MD The documentation for this note was completed by Cynthia Chi MA acting as scribe for Mark Ramirez MD. November 24, 2023 8:54 AM. Cynthia Chi MA documented in this encounter [facility] 11-18-2023 Telephone encounter Note The following approved medication requests have been transmitted electronically. Requested Prescriptions Pending Prescriptions Disp Refills albuterol HFA (PROVENTIL HFA, VENTOLIN HFA) 90 mcg/actuation inhaler 3 Each 3 Sig: Shake well then inhale 2 to 4 puffs as instructed every 6 hours as needed for wheezing/shortness of breath. metoprolol tartrate, short acting, (LOPRESSOR) 25 mg tablet 180 tablet 3 Sig: Take 1 tablet by mouth two times a day. Migdalia Corley APRN.CNP [facility] 11-18-2023 Miscellaneous Notes The following approved medication requests have been transmitted electronically. Requested Prescriptions Pending Prescriptions Disp Refills albuterol HFA (PROVENTIL HFA, VENTOLIN HFA) 90 mcg/actuation inhaler 3 Each 3 Sig: Shake well then inhale 2 to 4 puffs as instructed every 6 hours as needed for wheezing/shortness of breath. metoprolol tartrate, short acting, (LOPRESSOR) 25 mg tablet 180 tablet 3 Sig: Take 1 tablet by mouth two times a day. Migdalia Corley APRN.CNP Last OV 05/13/23 Next OV 11/24/23 Patient phones requesting refills as follows: Requested Prescriptions Pending Prescriptions Disp Refills albuterol HFA (PROVENTIL HFA, VENTOLIN HFA) 90 mcg/actuation inhaler 3 Each 3 Sig: Shake well then inhale 2 to 4 puffs as instructed every 6 hours as needed for wheezing/shortness of breath. metoprolol tartrate, short acting, (LOPRESSOR) 25 mg tablet 180 tablet 3 Sig: Take 1 tablet by mouth two times a day. Please review and advise. Cynthia Porras RN documented in this encounter [facility] 11-17-2023 Telephone encounter Note Last OV 05/13/23 Next OV 11/24/23 Patient phones requesting refills as follows: Requested Prescriptions Pending Prescriptions Disp Refills albuterol HFA (PROVENTIL HFA, VENTOLIN HFA) 90 mcg/actuation inhaler 3 Each 3 Sig: Shake well then inhale 2 to 4 puffs as instructed every 6 hours as needed for wheezing/shortness of breath. metoprolol tartrate, short acting, (LOPRESSOR) 25 mg tablet 180 tablet 3 Sig: Take 1 tablet by mouth two times a day. Please review and advise. Cynthia Porras RN [facility] 11-17-2023 History of Present illness Narrative [facility] Telephonic Outreach Provider Action/FYI Contacted for: Routine Telephonic Outreach Contact made with patient: Yes Patient identified by name and date of . Discussed care with patient Are you experiencing any new or worsening symptoms you need to talk about today? No Disease Specific Do you check your blood pressure at home? No Do you have new or worsening shortness of breath with activity? No Do you have new or worsening trouble breathing while lying flat? No Do you have new or worsening swelling of legs, feet or ankles? No Do you check your daily weight at home? No Based on hadoop administrator, the following disposition is advised: No symptoms or symptoms present, not severe. Routed to: No Action Needed ANTONIETA Education Provided this Outreach: No Cynthia Porras RN November 17, 2023 10:02 AM documented in this encounter [facility] 11-16-2023 History of Present illness Narrative [facility] Telephonic Outreach Provider Action/FYI Contacted for: Routine Telephonic Outreach Contact made with patient: No, left message. Cynthia Porras RN November 16, 2023 1:29 PM documented in this encounter [facility] 10-03-2023 History of Present illness Narrative [facility] Telephonic Outreach Provider Action/FYI Contacted for: Goals/Falls/ADL Update Contact made with patient: Yes Patient identified by name and date of . Discussed care with: patient Goal Setting I would like to take some time today to discuss your personal health goals. Yes, patient has goals. Capture the goal the patient wants to accomplish: epic. Does the goal align with programs offered at the [facility]? Yes Chronic Disease Management patient goals yes: maintain health Most people know what to do to become healthier, yet struggle to put it into action on their own, It can be hard to maintain a healthy lifestyle, especially when life is so stressful. Can we connect you with a [facility] Health Loss Mitigation Specialist to find a program that could help you meet your goals? No Falls completed:Yes ADL's updated: Yes Are you experiencing any new or worsening symptoms you need to talk about today? No Disease Specific Do you check your blood pressure at home? No Do you have new or worsening shortness of breath with activity? No Do you have new or worsening trouble breathing while lying flat? No Do you have new or worsening swelling of legs, feet or ankles? No Do you check your daily weight at home? No Based on hadoop administrator, the following disposition is advised: No symptoms or symptoms present, not severe. Routed to: No Action Needed ANTONIETA Education Provided this Outreach: No Luz Mac RN October 03, 2023 6:06 PM [facility] Telephonic Outreach Provider Action/FYI Patient states: -he's doing well/working -no concerns Contacted for: Routine Telephonic Outreach Contact made with patient: Yes Patient identified by name and date of . Discussed care with patient Are you experiencing any new or worsening symptoms you need to talk about today? No Disease Specific Do you check your blood pressure at home? No Do you have new or worsening shortness of breath with activity? No Do you have new or worsening trouble breathing while lying flat? No Do you have new or worsening swelling of legs, feet or ankles? No Do you check your daily weight at home? Yes, Have you noticed a sudden gain in weight greater than three pounds in a day or three pounds in a week? No Based on hadoop administrator, the following disposition is advised: No symptoms or symptoms present, not severe. Routed to: No Action Needed ANTONIETA Education Provided this Outreach: No Luz Mac RN October 03, 2023 6:04 PM documented in this encounter [facility] 09-30-2023 History of Present illness Narrative Opened in error documented in this encounter [facility] 09-09-2023 History of Present illness Narrative [facility] Telephonic Outreach Provider Action/FYI Contacted for: Routine Telephonic Outreach Contact made with patient: No, left message. Luz Mac RN September 09, 2023 11:57 AM documented in this encounter [facility] 09-08-2023 History of Present illness Narrative [facility] Telephonic Outreach Provider Action/FYI Contacted for: Routine Telephonic Outreach Contact made with patient: No, left message. Luz Mac RN September 08, 2023 4:32 PM documented in this encounter [facility] 09-07-2023 History of Present illness Narrative [facility] Telephonic Outreach Provider Action/FYI Contacted for: Routine Telephonic Outreach Contact made with patient: No, left message. Luz Mac RN September 07, 2023 5:06 PM documented in this encounter [facility] 06-10-2023 Miscellaneous Notes OK to refill as ordered Mark Ramirez MD Patient has been identified by name and date of : Yes, Provider Luz Mac RN for Dr. Mark Charlton Date 06/10/32 Time 1424 Patient phoned to request the following prescription(s) If there are any questions regarding this prescription request, call at home at: [phone] (home) [phone] (cell) RX INSTRUCTIONS: Patient aware RX will be sent to pharmacy. No need to notify patient. Date of last office visit: 05/13/23 Date of last [facility] visit: Visit date not found Date of future office visit: 11/15/23 Requested Prescriptions Pending Prescriptions Disp Refills albuterol HFA (PROVENTIL HFA, VENTOLIN HFA) 90 mcg/actuation inhaler 3 Each 3 Sig: Shake well then inhale 2 to 4 puffs as instructed every 6 hours as needed for wheezing/shortness of breath. Prescriptions are usually addressed within 24-48 business hours. If patient states they cannot wait 24-48 business hours, please document details. Last 2 Encounter Wt Readings: Date: Wt: 05/13/2023 89 kg (196 lb 4.8 oz) 11/30/2022 93.4 kg (206 lb) Last 2 Encounter BP Readings: Date: BP: 05/13/2023 120/74 11/12/2022 120/74 CMP: Glucose 115 05/13/2023 BUN 15 05/13/2023 Creatinine 0.95 05/13/2023 Sodium 142 05/13/2023 Potassium 4.5 05/13/2023 Chloride 107 05/13/2023 CO2 25 05/13/2023 Protein, Total 6.5 05/13/2023 Albumin 4.1 05/13/2023 Calcium 9.3 05/13/2023 Alkaline Phosphatase 66 05/13/2023 Bilirubin, Total 0.3 05/13/2023 AST 19 05/13/2023 ALT 15 05/13/2023 Cholesterol, Total (mg/dL) Date Value 05/13/2023 145 11/08/2022 134 11/10/2020 168 05/01/2020 173 HDL Cholesterol (mg/dL) Date Value 05/13/2023 40 11/08/2022 37 11/10/2020 43 05/01/2020 46 LDL Cholesterol (mg/dL) Date Value 05/13/2023 89 11/08/2022 69 11/10/2020 109 05/01/2020 103 Triglyceride (mg/dL) Date Value 05/13/2023 78 11/08/2022 139 11/10/2020 78 05/01/2020 119 TSH Date Value Ref Range Status 05/13/2023 1.480 0.270 - 4.200 mIU/L Final Hemoglobin A1C (%) Date Value 07/17/2019 5.9 Hemoglobin (g/dL) Date Value 05/13/2023 14.7 05/21/2020 14.1 Hematocrit (%) Date Value 05/13/2023 47.0 05/21/2020 45.1 WBC (k/uL) Date Value 05/13/2023 6.11 05/21/2020 6.50 Platelet Count (k/uL) Date Value 05/13/2023 223 05/21/2020 223 Luz Mac RN documented in this encounter [facility] 06-10-2023 History of Present illness Narrative [facility] Telephonic Outreach Provider Action/FYI Patient speaking in full sentences and states: -doing well -requesting new order albuterol inhaler/verified to [facility] pharmacy -he's ready for game tomorrow/[employer]! -appreciates call Contacted for: Routine Telephonic Outreach Contact made with patient: Yes Patient identified by name and date of . Discussed care with patient Are you experiencing any new or worsening symptoms you need to talk about today? No Disease Specific Do you check your blood pressure at home? No Do you have new or worsening shortness of breath with activity? No Do you have new or worsening cough? No Do you have new or worsening wheezing? No Do you need to use your rescue (Albuterol) inhaler or nebulizer more often than normal? No Based on hadoop administrator, the following disposition is advised: No symptoms or symptoms present, not severe. Routed to: No Action Needed ANOTNIETA Education Provided this Outreach: No Luz Mac RN June 10, 2023 2:21 PM documented in this encounter [facility] 05-14-2023 Miscellaneous Notes Left detailed vm on identified vm with provider's message below. Please notify patient that his lab results all look good; stay on the same medications and follow up in 6 months as planned. Labs ordered for 6 months. Mark Ramirez MD documented in this encounter [facility] 05-13-2023 Instructions Cynthia Chi Ma - 05/13/2023 8:17 AM EDT Please bring your medication bottles with you to your next appointment so we can verify what you are taking. documented in this encounter [facility] 05-13-2023 History of Present illness Narrative Chief Complaint Patient presents with: 6 Month Exam Immunizations: Flu vaccination HPI Lorenzo Reis is a 67 year old male who presents here today for 6 month follow up. Smoking half ppd. Denies wanting to quit. No bowel, Gi, or urinary issues. Uses Proscar 5 mg daily. Has seen Urologist Dr. Mcgovern, not following with him any longer. HTN: Does not check BP at home. Taking Effient 10 mg daily, Lopressor 25 mg 1 pill BID. No chest pains, dizziness, or SOB. Lipid/CAD: Denies watching diet or exercise. Has been seen by Cardio Dr. Gomez in past. Taking Lipitor 80 mg daily. Thyroid: Taking Synthroid 150 mcg daily. No missed dosages. Skin: spot on his head that is irritating. He states it has been there a long time, unsure how long. He has a tightness in his chest normally in the mornings, coughing up a lot of phlegm. Still smoking. He states that it will occur throughout the day some. Feels better once he coughs up the phlegm. He had the lung cancer screening test done which was normal other than some nodules which will be monitored yearly. Past medical history, appointments, medications, allergies reviewed. Previous Medical History PAST MEDICAL HISTORY Diagnosis Date Acute pulmonary embolism (HCC) 06/2020 unknown cause; pt on Eliquis Benign neoplasm of rectum and anal canal History of peptic ulcer disease Pure hypercholesterolemia Snoring Tobacco use Unspecified hypothyroidism Previous Surgical History PAST SURGICAL HISTORY Procedure Laterality Date COLONOSCOPY FLX DX W/COLLJ SPEC WHEN PFRMD 06/16/2009 Colonoscopy COLONOSCOPY FLX DX W/COLLJ SPEC WHEN PFRMD 08/05/2016 Colonoscopy COLONOSCOPY FLX DX W/COLLJ SPEC WHEN PFRMD 02/15/2018 multiple adenomatous polyps, repeat in 3 years COLONOSCOPY FLX DX W/COLLJ SPEC WHEN PFRMD 12/23/2020 COLSC FLX W/RMVL OF TUMOR POLYP LESION SNARE TQ 10/21/2006 Large polyp at 50cm, 3 small sessile polyps in low rectosigmoid COLSC FLX W/RMVL OF TUMOR POLYP LESION SNARE TQ 06/25/2011 polyp in rectum DIAGNOSIS/HISTORY left 5th finger, laceration repair HERNIA REPAIR HX PAST SURGICAL HISTORY OF Right 1979 right shoulder Dislocated collar bone, ORIF Dr. Kilgore PAST SURGICAL HISTORY OF N/A 08/20/2020 Prostate biopsy RPR PRIMARY OPEN/PRQ RUPTURED ACHILLES W/GRAFT Right 2018 RPR UMBILICAL HRNA 5 YRS/> REDUCIBLE 07/15/2009 with mesh Family History FAMILY HISTORY Problem Relation Age of Onset Alzheimer's Disease Mother Coronary Artery Disease Father [place] Prostate Cancer Father Patient Allergies ALLERGIES Allergen Reactions Bees Swelling Swelling of throat; pt has been through desensition Current Medications Current Outpatient Medications on File Prior to Visit Medication Sig acetaminophen (TYLENOL) 325 mg tablet Take 2 tablets by mouth every 4 hours as needed for pain or fever (specify). albuterol HFA (PROVENTIL HFA, VENTOLIN HFA) 90 mcg/actuation inhaler Shake well then inhale 2 to 4 puffs as instructed every 6 hours as needed for wheezing/shortness of breath. atorvastatin (LIPITOR) 80 mg tablet Take 1 tablet by mouth daily at bedtime. finasteride (PROSCAR) 5 mg tablet Take 1 tablet by mouth once daily. levothyroxine (SYNTHROID) 150 mcg tablet Take 1 tablet by mouth once daily. Take on empty stomach. For thyroid metoprolol tartrate, short acting, (LOPRESSOR) 25 mg tablet Take 1 tablet by mouth twice daily. prasugrel (EFFIENT) 10 mg tab Take 1 tablet by mouth once daily. Start with 60 mg (6 tablets) loading dose after you stop brilinta, then continue with 1 tablet (10 mg) once daily thereafter. No current facility-administered medications on file prior to visit. Social History Social History Tobacco Use Smoking status: Every Day Packs/day: 1.00 Years: 50.00 Additional pack years: 0.00 Total pack years: 50.00 Types: Cigarettes Smokeless tobacco: Never Vaping Use Vaping Use: Never used Substance Use Topics Alcohol use: Not Currently Comment: 12 beers a week Drug use: No EXAM: BP 120/74 Pulse 74 Resp 16 Wt 89 kg (196 lb 4.8 oz) BMI 28.99 kg/m General Appearance: Well appearing, alert, in no acute distress, well-hydrated, well nourished.. Skin: mirlande keratosis on the top of scalp. Lungs: Lungs clear to auscultation. No wheezing, rhonchi, rales.. Heart: RRR without murmur, gallop, or rubs. No ectopy. Health Maintenance List Shingrix Vaccine(2 of 2) due on 08/01/2019 Influenza Vaccine(1) due on 03/18/2023 Covid-19 Vaccine(3 - 2022- season) due on 03/18/2023 LDL Cholesterol due on 11/09/2023 Annual PCP Team Chronic Disease Visit due on 11/13/2023 BP Controlled (<130/80) due on 12/01/2023 Lung Cancer Screening due on 12/03/2023 Colorectal Cancer Screening due on 12/24/2023 Diabetes Screening due on 11/08/2025 Prostate Cancer Screening Discussion due on 02/25/2026 Lipid Screening due on 11/09/2027 DTaP,Tdap,Td Vaccine(4 - Td or Tdap) due on 03/28/2030 Abdominal Aortic Aneurysm Screening Completed Advance Directive Discussion Completed Depression Assessment Completed Hepatitis C Screening Completed Pneumococcal Vaccine: 65+ Completed Data reviewed Labs in process ASSESSMENT/PLAN: 1. Essential hypertension, benign - ICD9: 401.1, ICD10: I10 (primary diagnosis) - Controlled - Continue current medications - Recommend home blood pressure monitoring, to bring results to next visit - Encouraged sodium restriction, DASH or Mediterranean diet - Recommend regular aerobic exercise - Discussed need for and benefit of weight loss. BMI 28.99 kg/(m^2) 2. Need for influenza vaccination - ICD9: V04.81, ICD10: Z23 - INFLUENZA VACCINE, PRSV FREE, AGE 65+ YR, HIGH DOSE, QUADRIVALENT (FLUZONE HIGH-DOSE) 3. Mixed hyperlipidemia - ICD9: 272.2, ICD10: E78.2 - Control undetermined, due for labs - Continue current medications - Counseled on healthy diet and regular exercise - Discussed need for and benefit of weight loss. BMI 28.99 kg/(m^2) 4. Pulmonary nodules - ICD9: 793.19, ICD10: R91.8 Monitor yearly 5. Smoker - ICD9: 305.1, ICD10: F17.200 - Cessation encouraged. - Physiologic and physical aspects of tobacco addiction as well as strategies for quitting were discussed. - Counseling was given focusing on the harmful effects of this addiction especially given the patient's medical condition(s) which will be worsened because of the chemicals in tobacco. - Counseling was given 3-4 minutes. 6. Cough, unspecified type - ICD9: 786.2, ICD10: R05.9 Due to smoking 7. Acquired hypothyroidism - ICD9: 244.9, ICD10: E03.9 - Instructed patient on importance of taking on an empty stomach either first thing in the morning or at bedtime. Continue current medications. Follow up in 6 months with fasting labs prior. Will notify of lab results. I agree with the Chief Complaint, ROS, and Past Histories independently gathered by the clinical family support coordinator and the remaining scribed note accurately describes my personal service to the patient. Medical Decision Making: Problems: Moderate: 2+ stable chronic illnesses Data: Unique test(s) ordered: 3+ Risk: Moderate: Drug management Medical Decision Making Level: 4 - Moderate Mark Ramirez MD The documentation for this note was completed by Cynthia Chi Ma acting as scribe for Mark Ramirez MD. May 13, 2023 8:14 AM. Cynthia Chi Ma documented in this encounter [facility] 04-28-2023 History of Present illness Narrative [facility] Telephonic Outreach Provider Action/FYI Patient states: -doing well -working at time of call -has appts info at home Provided in next PCP appt 05/13/23 Contacted for: Routine Telephonic Outreach Contact made with patient: Yes Patient identified by name and date of . Discussed care with patient Are you experiencing any new or worsening symptoms you need to talk about today? No Disease Specific Do you check your blood pressure at home? No Do you have new or worsening shortness of breath with activity? No Do you have new or worsening trouble breathing while lying flat? No Do you have new or worsening swelling of legs, feet or ankles? No Do you check your daily weight at home? No Based on hadoop administrator, the following disposition is advised: No symptoms or symptoms present, not severe. Routed to: No Action Needed ANTONIETA Education Provided this Outreach: No Luz Mac RN April 28, 2023 4:08 PM documented in this encounter [facility] 02-11-2023 History of Present illness Narrative [facility] Telephonic Outreach Provider Action/FYI Home/Mobile: LVM Sent [facility] Contacted for: Routine Telephonic Outreach Contact made with patient: No, left message. Luz Mac RN February 11, 2023 3:46 PM documented in this encounter [facility] 02-09-2023 History of Present illness Narrative [facility] Telephonic Outreach Provider Action/I [facility] Home/Mobile: LV Sent [facility] Contacted for: Routine Telephonic Outreach Contact made with patient: No, left message. Luz Mac RN February 10, 2023 2:42 PM documented in this encounter [facility] 11-30-2022 History of Present illness Narrative Radiology Service Progress Note PATIENT NAME: Lorenzo Reis DATE OF SERVICE: November 30, 2022 TIME: 9:41 AM PATIENT IDENTITY VERIFICATION COMPLETED USING TWO (2) IDENTIFIERS: Name and Date of confirmed by patient verbally. FALL SCREENING: Has the patient had 2 falls in the last year or 1 fall with injury or currently using an Ambulatory Assistive Device (Walker, Cane, Wheelchair, Crutches, etc.)? No PATIENT GENDER DATA: Male PATIENT RELEVANT IMPLANT DATA REVIEWED: Not Applicable RADIOLOGY DEPARTMENT: Ultrasound PERIPHERAL IV DATA: Not applicable SIGNED BY: Radha Mcqueen RDMS November 30, 2022 9:41 AM documented in this encounter [facility] 11-30-2022 Instructions Madina Majano APRN.CNP - 11/30/2022 8:[address] Lung Screen Results The CT scan that you will have done will show if you have any nodules (small spots) in your lungs that are suspicious for cancer. Around 90% of the patients who have this scan done are found to have at least one nodule. Most nodules are benign (not cancer) and of no harm to you at all. A specialist will make a scientific evaluation about whether or not a nodule is worrisome based on its size and shape. The radiologist who will read your scan will put it into one of four categories: LUNG-RADS Category Description Overall Probability of Malignancy Recommended Follow-Up 1 Negative No nodules and definitely benign (non-cancerous nodules) Essentially 0. 1 Year - Follow-up Low dose CT 2 Benign Appearance or Behavior Nodules with a very low likelihood of becoming cancer due to size or lack of growth Less than 1% 1 Year - Follow-up Low dose CT 3 Probably Benign Probably benign finding, short term follow-up recommended 1 to 2% 6 Months - Follow-up CT 4 A,B,or X Suspicious Findings for which additional diagnostic testing and/or biopsy is recommended Will be calculated based on nodule characteristics. Dependent on what is seen on the exam. [address], PET, Biopsy At times, we may see something outside of the lungs on the scan that could be a health concern. Below are some of the most common findings: S Clinically Significant or Potentially Clinically Significant Findings (non lung cancer) Referral or additional imaging/labs depending on result. Approximately 10% of people receive this result. Coronary Artery Calcifications (Moderate or Severe) - Referral to cardiology or PCP for further work-up and recommendations. Thyroid Nodule - TSH level and Thyroid Ultrasound dependent on size, referral to endocrinology. Adrenal Nodule - Blood work and referral to endocrinology. Others Lung Cancer Screening hotline: [phone] Lung Cancer Screening [phone] Billing Questions: or [email or web address] Lung Cancer Screening Team: Becka Yip CNP; Moose Laws PA-C; Oswald Bobo CNP; Gemma Goss CNP, Nora Zabala PA-C, Annette Penaloza PA-C, Madina Majano, WATER PUMP INSTALLER : [phone] documented in this encounter [facility] 11-30-2022 History of Present illness Narrative Images from the original note were not included. LUNG SCREENING VISIT PRIMARY CARE PHYSICIAN: Mark Ramirez MD PULMONARY PROVIDER: None Results will be communicated via letter or electronic record if applicable. Visit Delivery: In Person Patient Visit Type: New to Screening Current or Ex-smoker? [Current Exam Type: baseline LDCT Number of Pack Years: 51 Current smoker-Number of Years since Quit: 0 REQUESTER: The referring provider advised the patient to have screening. HISTORY OF PRESENT ILLNESS: Lorenzo Reis is a 67 year old Active smoker who presents for lung screening. Respiratory symptoms include: SOB: Yes Chest tightness: Yes Coughing: Yes: With mucus Clear Hemoptysis: No Wheezing: Yes at night Fever/Chills: No Recent Respiratory Infection: No Unintentional weight loss: No Last 6 Encounter Wt Readings: Date: Wt: 11/30/2022 93.4 kg (206 lb) 11/12/2022 93.8 kg (206 lb 11.2 oz) 07/02/2022 87.1 kg (192 lb) 06/07/2022 87.1 kg (192 lb) 05/21/2022 87.1 kg (192 lb) 05/14/2022 88.5 kg (195 lb) ECOG PERFORMANCE STATUS: 0- Fully active, able to carry on all pre-disease performance w/o restriction. Modified Medical Research [place] Dyspnea Scale (MMRC) I get short of breath when hurrying on level ground or walking up a slight hill 1 PAST MEDICAL HISTORY Diagnosis Date Acute pulmonary embolism (HCC) 06/2020 unknown cause; pt on Eliquis Benign neoplasm of rectum and anal canal History of peptic ulcer disease Pure hypercholesterolemia Snoring Tobacco use Unspecified hypothyroidism PAST SURGICAL HISTORY Procedure Laterality Date COLONOSCOPY FLX DX W/COLLJ SPEC WHEN PFRMD 06/16/2009 Colonoscopy COLONOSCOPY FLX DX W/COLLJ SPEC WHEN PFRMD 08/05/2016 Colonoscopy COLONOSCOPY FLX DX W/COLLJ SPEC WHEN PFRMD 02/15/2018 multiple adenomatous polyps, repeat in 3 years COLONOSCOPY FLX DX W/COLLJ SPEC WHEN PFRMD 12/23/2020 COLSC FLX W/RMVL OF TUMOR POLYP LESION SNARE TQ 10/21/2006 Large polyp at 50cm, 3 small sessile polyps in low rectosigmoid COLSC FLX W/RMVL OF TUMOR POLYP LESION SNARE TQ 06/25/2011 polyp in rectum DIAGNOSIS/HISTORY left 5th finger, laceration repair HERNIA REPAIR HX PAST SURGICAL HISTORY OF Right 1979 right shoulder Dislocated collar bone, ORIF Dr. Kilgore PAST SURGICAL HISTORY OF N/A 08/20/2020 Prostate biopsy RPR PRIMARY OPEN/PRQ RUPTURED ACHILLES W/GRAFT Right 2018 RPR UMBILICAL HRNA 5 YRS/> REDUCIBLE 07/15/2009 with mesh FAMILY HISTORY Problem Relation Age of Onset Alzheimer's Disease Mother Coronary Artery Disease Father [place] Prostate Cancer Father metoprolol tartrate, short acting, (LOPRESSOR) 25 mg tablet Take 1 tablet by mouth twice daily. albuterol HFA (PROVENTIL HFA, VENTOLIN HFA) 90 mcg/actuation inhaler Shake well then inhale 2 to 4 puffs as instructed every 6 hours as needed for wheezing/shortness of breath. finasteride (PROSCAR) 5 mg tablet Take 1 tablet by mouth once daily. levothyroxine (SYNTHROID) 150 mcg tablet Take 1 tablet by mouth once daily. Take on empty stomach. For thyroid atorvastatin (LIPITOR) 80 mg tablet Take 1 tablet by mouth daily at bedtime. prasugrel (EFFIENT) 10 mg tab Take 1 tablet by mouth once daily. Start with 60 mg (6 tablets) loading dose after you stop brilinta, then continue with 1 tablet (10 mg) once daily thereafter. acetaminophen (TYLENOL) 325 mg tablet Take 2 tablets by mouth every 4 hours as needed for pain or fever (specify). ALLERGIES Allergen Reactions Bees Swelling Swelling of throat; pt has been through desensition The medications and allergies were reviewed and reconciled for this patient and deemed current. Lung Cancer Risk Factors: 1.Tobacco Use: Start Age 16, Quit Age: N/A, Average packs per day 1, Pack Years 51 2. Passive Smoke Exposure: Yes, as a Child 3. Personal hx of malignancy: No, Type of Cancer: 4. Significant exposures (1 year or more of exposure): None, 5. Race: White 6. Education: High School Graduate 7. BMI:Body mass index is 30.42 kg/m . Patient-entered Height: 5'9 Patient-entered Weight: 206 pounds 8. COPD: No 9. Pneumonia in the past 5 years: No 10. Is there a history of lung cancer in a first degree relative? No 11. Is there a history of lung cancer in a non-first degree relative? No 12. Is there a history of any other cancer in a first degree relative? Yes Father prostate cancer Health Maintenance Immunization History Administered Date(s) Administered COVID-19 original vaccine, full dose, monovalent (MODERNA) 03/24/2021 influenza (HD-IIV4) vaccine, age 65+ yr, high dose, quadrivalent, PF (FLUZONE HIGH-DOSE) 05/07/2021 05/14/2022 influenza (IIV3) vaccine, age 3+ yr, trivalent (AFLURIA, FLULAVAL, FLUVIRIN, FLUZONE) 04/25/2017 05/27/2018 influenza (IIV4) vaccine, age 6 mo - 64 yr, quadrivalent (AFLURIA, FLULAVAL, FLUZONE) 06/06/2019 05/06/2020 influenza (IIV4) vaccine, age 6 mo - 64 yr, quadrivalent, PF (AFLURIA, FLUARIX, FLULAVAL, FLUZONE) 04/05/2017 influenza (ccIIV4) vaccine, age 6+ mo, quadrivalent, PF (FLUCELVAX) 05/27/2018 influenza vaccine, unspecified formulation 03/18/2011 pneumococcal (PCV20) vaccine, 20 valent (PREVNAR 20) 11/12/2022 pneumococcal (PPV23) vaccine, 23 valent (PNEUMOVAX 23) 10/16/2013 tetanus diphtheria pertussis (Tdap) vaccine, age 7+ yr (ADACEL, BOOSTRIX) 09/15/2006 01/31/2018 03/28/2020 zoster (RZV) vaccine, recombinant (SHINGRIX) 06/06/2019 Colonoscopy: 12/23/2020 Mammogram: DATA REVIEW I have directly visualized the testing documented: 09/20/2021 CT Chest -multiple small lung nodules in RADHA Prior Imaging: Last CT/CTA Chest/Lungs CT CHEST W IVCON PE Exam End: 09/20/2021 10:49 PM (Final result) Narrative: * * *Final Report* * * DATE OF EXAM: Sep 20 2021 10:49PM [facility] [id number] - CT CHEST W IVCON PE / PROCEDURE REASON: PE suspected, high pretest prob * * * * Physician Interpretation * * * * EXAMINATION: CHEST CT WITH CONTRAST (PULMONARY EMBOLISM PROTOCOL) CLINICAL HISTORY: PE suspected, high pretest prob Technique: Spiral CT acquisition of the chest from the thoracic inlet to the upper abdomen following IV contrast. Axial 1 and 3 mm thick slices plus coronal and sagittal reformatted images. MQ: CTCP_5 Contrast: 70 mL Omnipaque [address] Radiation dose: Integrated Dose-length product (DLP) for this visit = 388 mGy*cm CT Dose Reduction Employed: Automated exposure control (AEC) Comparison: 09/30/2020. RESULT: Limitations: None. Evaluation for thromboembolic disease: - Right heart chambers: No thromboembolic disease. - Main pulmonary arteries: No thromboembolic disease. - Lobar pulmonary arteries: No thromboembolic disease. - Segmental pulmonary arteries: No thromboembolic disease. - Subsegmental pulmonary arteries: No thromboembolic disease. - Additional pulmonary artery findings: The main pulmonary artery is normal in caliber. Lines, tubes, and devices: None. Lung parenchyma and airways: No consolidation. No suspicious pulmonary nodule. The central airways are patent. Pleural space: No pleural effusion. No pleural thickening. Lower neck, lymph nodes, and mediastinum: The imaged thyroid gland is normal. Mildly enlarged mediastinal and right hilar lymph nodes are not significantly changed. Heart, pericardium, and thoracic vessels: Heart is not enlarged. There is no pericolic effusion. Bones and soft tissues: No destructive bone lesion. Chest wall is unremarkable. Old bilateral rib fractures. Upper abdomen: Cholelithiasis. Community Recreation Coordinator (topogram) images: Unremarkable. Impression: IMPRESSION: No CT evidence of pulmonary embolism. Cholelithiasis. Ticketing Clerk: PSCB Transcribe Date/Time: Sep 20 2021 10:57P Dictated by : BROOKLYN QURESHI MD This examination was interpreted and the report reviewed and electronically signed by: BROOKLYN QURESHI MD on Sep 20 2021 11:09PM EST Last CT Chest - Impression Only CT CHEST W IVCON PE Exam End: 09/20/2021 10:49 PM (Final result) Impression: IMPRESSION: No CT evidence of pulmonary embolism. Cholelithiasis. ... Last XR Chest - Impression Only XR CHEST 1V FRONTAL Exam End: 06/25/2022 7:22 PM (Final result) Impression: IMPRESSION: No acute radiographic abnormality. ... Pulmonary Function Testing: No textual results found for the specified procedure(s). PHYSICAL EXAM: BP (P) 124/78 Pulse (P) 60 Resp (P) 17 Wt 93.4 kg (206 lb) SpO2 (P) 98% BMI 30.42 kg/m Deferred ASSESSMENT and RECOMMENDATIONS: 1. Screening for lung cancer: Six year risk for lung cancer: 5.1% I have determined that the patient is eligible for a low dose CT based on age, absence of signs or symptoms of lung cancer, and total pack years: Yes. The patient and I engaged in shared decision making, including the use of one or more decision aids, to include benefits, harms, follow-up diagnostic testing, over-diagnosis, false positive rate, and total radiation exposure. The patient understands and feels comfortable with it: Yes. The patient was counseled on the importance of adherence to annual LDCT lung cancer screening, impact of comorbidities and ability or willingness to undergo diagnosis and treatment. The patient understands and feels comfortable with it:Yes. 2. Nicotine dependence: The patient was counseled on the importance of smoking cessation if current smoker and, if appropriate, offered additional tobacco cessation counseling services - Smoking Cessation Counseling. SMOKING CESSATION COUNSELING Smoking cessation methods including Behavior Modification were discussed with the patient and assistance offered. Discussed identifying triggers and modifying behaviors that are paired/associated with smoking and slowly over time cutting out cigarettes they have paired with a certain activity one by one such as with coffee or after dinner. The medical conditions adversely affected by cigarette use include:COPD, Emphysema, and Lung Cancer. The patient is currently not ready to quit. I personally spent 4 minutes in counseling. The time spent in smoking cessation counseling is exclusive of any other counseling during this visit. 3. Pulmonary nodules: multiple small nodules noted on CT Chest 09/20/2021. Madina Majano APRN.ALICIA NPI #: November [id number], [id number] 8:37 AM documented in this encounter [facility] 11-16-2022 Miscellaneous Notes Pt notified and voiced understanding. Cynthia Chi Ma Please notify patient that his neck Xrays just show degenerative changes, as expected. Go ahead with PT as we discussed. Mark Ramirez MD documented in this encounter [facility] 11-12-2022 History of Present illness Narrative Radiology Service Progress Note PATIENT NAME: Lorenzo Reis DATE OF SERVICE: November 12, 2022 TIME: 9:24 AM PATIENT IDENTITY VERIFICATION COMPLETED USING TWO (2) IDENTIFIERS: Name and Date of confirmed by patient verbally. FALL SCREENING: Has the patient had 2 falls in the last year or 1 fall with injury or currently using an Ambulatory Assistive Device (Walker, Cane, Wheelchair, Crutches, etc.)? No PATIENT GENDER DATA: Male PATIENT RELEVANT IMPLANT DATA REVIEWED: Yes RADIOLOGY DEPARTMENT: General X-ray: Exam(s) Completed: Spine X-Ray(s): Cervical AP / LAT / OBL PERIPHERAL IV DATA: Not applicable SIGNED BY: RT Jazzy(R) November 12, 2022 9:24 AM documented in this encounter [facility] 11-12-2022 History of Present illness Narrative Chief Complaint Patient presents with: 6 Month Exam HPI Lorenzo Reis is a 67 year old male who presents here today for 6 month follow up. He believes he has an advanced directive. HM: Depression screening; denies feeling depressed or hopeless. Reviewed negative depression screen with patient. Declined Covid booster, shingles vaccine. He is willing to do AAA screening and lung cancer screening test. Smoker about half ppd. Thinks about quitting but that's as far as he gets. No bowel, Gi, or urinary issues. Has followed with Urologist, Dr. Mcgovern. Taking Proscar 5 mg daily. Thyroid: Taking Synthroid 150 mcg daily. Denies any missed dosages. Lipid/CAD/HTN: Denies watching diet, no regular exercise. Taking Lipitor 80 mg daily. Has followed with Cardio, Dr. Gomez. Taking Effient 10 mg daily and Lopressor 25 mg BID. No chest pains, dizziness, does get SOB with exertion. Does not check BP at home. Doing PT for shoulder, had shoulder surgery in Jun. This is getting better, he is back to normal activity and playing golf. Pain is much better than it was prior to surgery. Neck: pain x 2-3 weeks, stiffness, rated pain 4/10 today. Has been trying to stretch the neck but has not used any OTC pain relievers, heat or ice. He denies any injury to neck. The neck cracks when he rolls the neck. Denies much pain when sleeping. Pain is mostly in the evening and morning. Pain does not go down into the shoulder or back. Past medical history, appointments, medications, allergies reviewed. Previous Medical History PAST MEDICAL HISTORY Diagnosis Date Acute pulmonary embolism (HCC) 06/2020 unknown cause; pt on Eliquis Benign neoplasm of rectum and anal canal History of peptic ulcer disease Pure hypercholesterolemia Snoring Tobacco use Unspecified hypothyroidism Previous Surgical History PAST SURGICAL HISTORY Procedure Laterality Date COLONOSCOPY FLX DX W/COLLJ SPEC WHEN PFRMD 06/16/2009 Colonoscopy COLONOSCOPY FLX DX W/COLLJ SPEC WHEN PFRMD 08/05/2016 Colonoscopy COLONOSCOPY FLX DX W/COLLJ SPEC WHEN PFRMD 02/15/2018 multiple adenomatous polyps, repeat in 3 years COLONOSCOPY FLX DX W/COLLJ SPEC WHEN PFRMD 12/23/2020 COLSC FLX W/RMVL OF TUMOR POLYP LESION SNARE TQ 10/21/2006 Large polyp at 50cm, 3 small sessile polyps in low rectosigmoid COLSC FLX W/RMVL OF TUMOR POLYP LESION SNARE TQ 06/25/2011 polyp in rectum DIAGNOSIS/HISTORY left 5th finger, laceration repair HERNIA REPAIR HX PAST SURGICAL HISTORY OF Right 1979 right shoulder Dislocated collar bone, ORIF Dr. Kilgore PAST SURGICAL HISTORY OF N/A 08/20/2020 Prostate biopsy RPR PRIMARY OPEN/PRQ RUPTURED ACHILLES W/GRAFT Right 2018 RPR UMBILICAL HRNA 5 YRS/> REDUCIBLE 07/15/2009 with mesh Family History FAMILY HISTORY Problem Relation Age of Onset Alzheimer's Disease Mother Coronary Artery Disease Father [place] Prostate Cancer Father Patient Allergies ALLERGIES Allergen Reactions Bees Swelling Swelling of throat; pt has been through desensition Current Medications Current Outpatient Medications on File Prior to Visit Medication Sig prasugrel (EFFIENT) 10 mg tab Take 1 tablet by mouth once daily. Start with 60 mg (6 tablets) loading dose after you stop brilinta, then continue with 1 tablet (10 mg) once daily thereafter. metoprolol tartrate, short acting, (LOPRESSOR) 25 mg tablet Take 1 tablet by mouth twice daily. albuterol HFA (PROVENTIL HFA, VENTOLIN HFA) 90 mcg/actuation inhaler Shake well then inhale 2 to 4 puffs as instructed every 6 hours as needed for wheezing/shortness of breath. finasteride (PROSCAR) 5 mg tablet Take 1 tablet by mouth once daily. oxyCODONE-acetaminophen (PERCOCET) 5-325 mg tablet Take 1-2 tablets by mouth every 4 hours as needed for pain. ondansetron orally disintegrating (ZOFRAN ODT) 4 mg disintegrating tablet Take 1 tablet by mouth every 8 hours as needed for nausea/vomiting. docusate sodium (COLACE) 100 mg capsule Take 1 capsule by mouth twice daily. levothyroxine (SYNTHROID) 150 mcg tablet Take 1 tablet by mouth once daily. Take on empty stomach. For thyroid atorvastatin (LIPITOR) 80 mg tablet TAKE 1 TABLET BY MOUTH EVERYDAY AT BEDTIME acetaminophen (TYLENOL) 325 mg tablet Take 2 tablets by mouth every 4 hours as needed for pain or fever (specify). No current facility-administered medications on file prior to visit. Social History Social History Tobacco Use Smoking status: Every Day Packs/day: 1.00 Years: 40.00 Pack years: 40.00 Types: Cigarettes Smokeless tobacco: Never Vaping Use Vaping Use: Never used Substance Use Topics Alcohol use: Not Currently Comment: 12 beers a week Drug use: No EXAM: BP 120/74 Pulse 78 Resp 16 Wt 93.8 kg (206 lb 11.2 oz) BMI 30.52 kg/m General Appearance: Well appearing, alert, in no acute distress, well-hydrated, well nourished. and Overweight. Neck: no pain on palpation, tightness with looking up but good ROM. Lungs: Lungs clear to auscultation. No wheezing, rhonchi, rales.. Heart: RRR without murmur, gallop, or rubs. No ectopy. Health Maintenance List ABDOMINAL AORTIC ANEURYSM SCREENING Never done PNEUMOCOCCAL: 65+(2 - PCV) due on 10/16/2014 SHINGRIX VACCINE(2 of 2) due on 08/01/2019 COVID-19 VACCINE(3 - Booster for Moderna series) due on 05/19/2021 LUNG CANCER SCREENING due on 09/29/2021 ADVANCE DIRECTIVE DISCUSSION due on 07/18/2022 DEPRESSION ASSESSMENT due on 07/18/2022 LDL CHOLESTEROL due on 05/12/2023 ANNUAL PCP TEAM CHRONIC DISEASE VISIT due on 05/14/2023 BP CONTROLLED (<130/80) due on 06/07/2023 COLORECTAL CANCER SCREENING due on 12/24/2023 DIABETES SCREEN due on 05/12/2025 PROSTATE CANCER SCREENING DISCUSSION due on 02/25/2026 LIPID SCREEN due on 05/12/2027 DTAP,TDAP,TD(4 - Td or Tdap) due on 03/28/2030 INFLUENZA Completed HEPATITIS C SCREENING Completed Data reviewed Appointment on 11/08/2022 Component Date Value Protein, Total 11/08/2022 6.5 Albumin 11/08/2022 4.1 Calcium, Total 11/08/2022 9.0 Bilirubin, Total 11/08/2022 0.4 Alkaline Phosphatase 11/08/2022 74 AST 11/08/2022 18 ALT 11/08/2022 16 Glucose 11/08/2022 93 BUN 11/08/2022 12 Creatinine 11/08/2022 0.94 Sodium 11/08/2022 142 Potassium 11/08/2022 3.6 (A) Chloride 11/08/2022 102 CO2 11/08/2022 31 (A) Anion Gap 11/08/2022 9 Estimated Glomerular Emanuel* 11/08/2022 89 Cholesterol, Total 11/08/2022 134 Triglyceride 11/08/2022 139 HDL Cholesterol 11/08/2022 37 (A) Non HDL Cholesterol 11/08/2022 97 Fasting Time 11/08/2022 3 VLDL Cholesterol 11/08/2022 28 TC:HDL Ratio 11/08/2022 3.62 LDL Cholesterol 11/08/2022 69 LDL:HDL Ratio 11/08/2022 1.86 TSH 11/08/2022 2.080 ASSESSMENT/PLAN: 1. Essential hypertension, benign - ICD9: 401.1, ICD10: I10 (primary diagnosis) - good control - Continue current medication(s) - Recommended regular aerobic exercise. - Recommend home blood pressure monitoring, to bring results in on next visit - Goal of BP <140/90 - METOPROLOL TARTRATE 25 MG TABLET - PRASUGREL 10 MG TABLET 2. Benign prostatic hyperplasia with urinary obstruction - ICD9: 600.01, 599.69, ICD10: N40.1, N13.8 Continue current medications. - FINASTERIDE 5 MG TABLET 3. Acquired hypothyroidism - ICD9: 244.9, ICD10: E03.9 - Instructed patient on importance of taking on an empty stomach either first thing in the morning or at bedtime. - continue current dose of Synthroid 0.150 mg - LEVOTHYROXINE 150 MCG TABLET 4. Need for vaccination - ICD9: V05.9, ICD10: Z23 - PNEUMOCOCCAL VACCINE (PREVNAR 20) 5. Screening for AAA (abdominal aortic aneurysm) - ICD9: V81.2, ICD10: Z13.6 - US SCREENING FOR AAA 6. Mixed hyperlipidemia - ICD9: 272.2, ICD10: E78.2 - good control - Continue current medication. - ATORVASTATIN 80 MG TABLET 7. Smoker - ICD9: 305.1, ICD10: F17.200 - Cessation encouraged. - Physiologic and physical aspects of tobacco addiction as well as strategies for quitting were discussed. - Counseling was given focusing on the harmful effects of this addiction especially given the patient's medical condition(s) which will be worsened because of the chemicals in tobacco. 8. Neck pain - ICD9: 723.1, ICD10: M54.2 Check Xray PT Follow up in 6 months with fasting labs prior. I agree with the Chief Complaint, ROS, and Past Histories independently gathered by the clinical family support coordinator and the remaining scribed note accurately describes my personal service to the patient. Medical Decision Making: Problems: Moderate: 2+ stable chronic illnesses Data: Unique test result(s) reviewed: 3+ Unique test(s) ordered: 3+ Risk: Moderate: Drug management Medical Decision Making Level: 4 - Moderate Mark Ramirez MD The documentation for this note was completed by Cynthia Chi Ma acting as scribe for Mark Ramirez MD. November 12, 2022 8:42 AM. Cynthia Chi Ma documented in this encounter [facility] 10-29-2022 Miscellaneous Notes The following approved medication requests have been transmitted electronically. Requested Prescriptions Pending Prescriptions Disp Refills albuterol HFA (PROVENTIL HFA, VENTOLIN HFA) 90 mcg/actuation inhaler 8.5 Each 5 Sig: Inhale 2-4 Puffs as instructed every 6 hours as needed for wheezing/shortness of breath. Migdalia Corley APRN.ALICIA Patient has been identified by name and date of : Yes, Provider Dr. Ramirez/Bee Mac RN Date 10/28/22 Patient phoned to request the following prescription(s) If there are any questions regarding this prescription request, call at home at: [phone] (home) [phone] (cell) RX INSTRUCTIONS: Patient aware RX will be sent to pharmacy. No need to notify patient. Date of last Distance Health visit: Visit date not found Date of future office visit: 11/12/22 Requested Prescriptions Pending Prescriptions Disp Refills albuterol HFA (PROVENTIL HFA, VENTOLIN HFA) 90 mcg/actuation inhaler 8.5 Each 5 Sig: Inhale 2-4 Puffs as instructed every 6 hours as needed for wheezing/shortness of breath. Prescriptions are usually addressed within 24-48 business hours. If patient states they cannot wait 24-48 business hours, please document details. Last 2 Encounter Wt Readings: Date: Wt: 07/02/2022 87.1 kg (192 lb) 06/07/2022 87.1 kg (192 lb) Last 2 Encounter BP Readings: Date: BP: 06/25/2022 188/100 06/07/2022 112/68 CMP: Glucose 98 05/12/2022 BUN 14 05/12/2022 Creatinine 0.79 05/12/2022 Sodium 139 05/12/2022 Potassium 4.1 05/12/2022 Chloride 105 05/12/2022 CO2 27 05/12/2022 Protein, Total 6.4 05/12/2022 Albumin 4.2 05/12/2022 Calcium 8.6 05/12/2022 Alkaline Phosphatase 81 05/12/2022 Bilirubin, Total 0.5 05/12/2022 AST 20 05/12/2022 ALT 14 05/12/2022 Cholesterol, Total (mg/dL) Date Value 05/12/2022 129 11/03/2021 124 11/10/2020 168 05/01/2020 173 HDL Cholesterol (mg/dL) Date Value 05/12/2022 38 11/03/2021 34 11/10/2020 43 05/01/2020 46 LDL Cholesterol (mg/dL) Date Value 05/12/2022 73 11/03/2021 71 11/10/2020 109 05/01/2020 103 Triglyceride (mg/dL) Date Value 05/12/2022 89 11/03/2021 96 11/10/2020 78 05/01/2020 119 TSH Date Value Ref Range Status 05/12/2022 0.344 0.270 - 4.200 mIU/L Final Hemoglobin A1C (%) Date Value 07/17/2019 5.9 Hemoglobin (g/dL) Date Value 05/12/2022 14.2 05/21/2020 14.1 Hematocrit (%) Date Value 05/12/2022 44.0 05/21/2020 45.1 WBC (k/uL) Date Value 05/12/2022 6.12 05/21/2020 6.50 Platelet Count (k/uL) Date Value 05/12/2022 176 05/21/2020 223 Lzu Mac RN documented in this encounter [facility] 10-28-2022 Miscellaneous Notes Patient has been identified by name and date of : Yes, Provider Dr. Leeroy Martínez Date 10/28/22 Patient phoned to request the following prescription(s) If there are any questions regarding this prescription request, call at home at: [phone] (home) [phone] (cell) RX INSTRUCTIONS: Patient aware RX will be sent to pharmacy. No need to notify patient. Requested Prescriptions Pending Prescriptions Disp Refills finasteride (PROSCAR) 5 mg tablet 90 tablet 3 Sig: Take 1 tablet by mouth once daily. Prescriptions are usually addressed within 24-48 business hours. If patient states they cannot wait 24-48 business hours, please document details. Last 2 Encounter Wt Readings: Date: Wt: 07/02/2022 87.1 kg (192 lb) 06/07/2022 87.1 kg (192 lb) Last 2 Encounter BP Readings: Date: BP: 06/25/2022 188/100 06/07/2022 112/68 CMP: Glucose 98 05/12/2022 BUN 14 05/12/2022 Creatinine 0.79 05/12/2022 Sodium 139 05/12/2022 Potassium 4.1 05/12/2022 Chloride 105 05/12/2022 CO2 27 05/12/2022 Protein, Total 6.4 05/12/2022 Albumin 4.2 05/12/2022 Calcium 8.6 05/12/2022 Alkaline Phosphatase 81 05/12/2022 Bilirubin, Total 0.5 05/12/2022 AST 20 05/12/2022 ALT 14 05/12/2022 Luz Mac RN documented in this encounter [facility] 10-26-2022 History of Present illness Narrative Opened in error documented in this encounter [facility] 10-26-2022 History of Present illness Narrative INSIGHT [facility] TELEPHONIC OUTREACH Provider Action/FYI: CHF Patient states: -doing well, at work, able to speak at this time -requesting medication new orders after medication review w/ RN -no concerns at this time Provided patient with VM reminder of PCP appt 11/12/22 per his request. Contact made with patient: Yes Patient identified by name and . Discussed care with patient It s nice talking to you again. As a reminder, this is our bi-weekly check-in where I will be asking you questions about your health. This will only take a few minutes of your time. Is this a good time? Yes Symptoms What Chronic Disease(s) does the patient have: CHF Do you check your blood pressures at home? No Do you have new or worse shortness of breath with activity? No Do you have new or worsening trouble breathing while lying flat? No Do you have new or worsening swelling of legs, feet or ankles? No Do you check your daily weight at home? No Are you having any other symptoms that your PCP needs to know about? No Symptoms: na Symptom Escalation ANTONIETA Education Ordered -: No The patient required an escalation for symptom(s)? No Medications Do you have any questions about taking your medication or which medications you should be on? No Do you need any medication refills at this time, including any of the medications you might take only when needed? No Social We would like to make sure you have what you need so that your basic needs are met- including your personal safety, food, housing, transportation and medications? Would you like to speak with a social work child study team director to help give you support for any of these needs? No It can be normal to feel anxious or down during a time like this. Would you like to talk to a mental health professional about how you have been feeling? No Closing Thank you for taking the time to talk with me today. We want to work with you to ensure that we are keeping your medical condition(s) well-controlled and to keep you healthy and out of the doctor's office or hospital. It s also not too late for me to sign you up for automated weekly questionnaires through [employer]. This is an easy way for us to stay connected each week. Are you interested? No, I understand. We can always sign you up in the future if you change your mind. Just as a reminder, will continue to call you every other week to check in on your health. Our calls should take 10-15 minutes or less. Remember, if you have concerns in between our calls, please call your PCP's office right away. Thank you. Enter next patient outreach date for two weeks on the same day of the week as today in the Track Pt Outreach and End outreach. documented in this encounter [facility] 10-12-2022 Miscellaneous Notes Patient needs appointment documented in this encounter [facility] 10-11-2022 History of Present illness Narrative Episode Visit Count: 13 Therapist That Will Accept/Oversee The Plan Of Care: Robert Soto Start of Care Date: 07/02/22 Onset Date: 08/11/17 Plan of Care Certification Date: 09/13/22 Next Certification Due Date: 10/18/22 Patient Identified by Name and Date of : Yes RE[facility]ABIL[facility]ATION AND SPORTS THERAPY PHYSICAL THERAPY DISCONTINUANCE OF CARE PLAN OF CARE UPDATE: Assessment: Lorenzo Reis is discontinued from Physical Therapy services due to goal achievement. and Patient/Clinician mutual decision to discontinue current plan of care.. Patient was seen for 13 visits from Start of Care Date: 07/02/22 to 10/11/2022 and treatment included: Therapeutic exercise, Manual therapy, Self-detention management, and Patient/Family/Caregiver Education. Goals updated 10/11/2022 Goals for Episode of Care: created on 07/02/22 through 09/10/22 Pt will be able to perform all therapeutic exercises without pain - Met so far Moore in home exercise program. - MET, so far Perform reaching overhead without pain. - MET Increase ROM of R shoulder to 120 degrees of elevation or better for ease of dressing and donning coat - MET Increased strength of R shoulder to 4/5 or greater for ease of work duties - MET Patient Goals: Improve function of shoulder SUBJECTIVE: Patient Reason for Visit: Doing well. Some popping at the shoulder but this is not painful. Patient feels 90% improved at this point. Functional Limitations: nothing Prior Level of Function: Independent without limitations Intake Information: Prescription present Previous Treatment: Surgery Pain: Pain Pain Location: Shoulder - Right PROMIS Scales T-scores: mean of general population = 50. 5 points is clinically meaningfully difference Percentiles provide an indication of how the patient's score ranks in relation to the general population. Higher percentile rankings indicate better function/quality of life. 50th percentile is the average of the general population and indicates half of respondents had a worse score. OBJECTIVE MEASURES WITH LEVEL OF FUNCTION: UE AROM R Shoulder Flex: 134 Degrees R Shoulder ABduction: 110 Degrees R Shoulder External Rotation: 45 Degrees UE PROM R Shoulder Flex: 141 Degrees UE and Cervical Strength R Shoulder Flexion: 4+/5 R Shoulder Abduction (C5): 4+/5 R Shoulder Internal Rotation: 4+/5 R Shoulder External Rotation: 4-/5 R Elbow Extension (C7): 5/5 R Elbow Flexion (C6): 5/5 TREATMENT: Therapeutic Exercise: 1: All objective measures taken this session 2: UBE 2.5 resistance (Subjective taken and HEP discussed) 3: Seated shoulder pulleys x 15 4: Standing scaption 6# 2 x 10 reps 5: Standing bicep curl x 15 then 10# x 10 reps 6: Bent over row 20# 2 x 15 Skilled Intervention: Patient was educated in proper exercise technique and purpose for exercises. Provided written instruction for home exercise program to facilitate proper performance and compliance. Correct performance of therapeutic exercises was facilitated with verbal and visual cuing. Billing Therapeutic Exercise Treatment Minutes: 25 Total Treatment Time Minutes (timed/untimed): 25 Robert Soto PT documented in this encounter [facility] 09-17-2022 History of Present illness Narrative Jocy Wadsworth PA-C Department of Orthopaedics September 17, 2022 SURGERY: Right reverse total shoulder arthroplasty CHIEF COMPLAINT: Established Patient, Follow Up, and Post Op of the Right Shoulder. SUBJECTIVE: Lorenzo returns to clinic today now 3 months status post right reverse total shoulder arthroplasty. Progressing with physical therapy. Exam: Examination of right shoulder reveals well-healed anterior incision. Active forward elevation 130, external rotation to 10, internal rotation to side. Strong deltoid contraction against resistance. Nontender along acromion or scapular spine. Imaging: I did order and interpret radiographs today, 3 view right shoulder. Right reverse total shoulder arthroplasty intact without evidence of mechanical loosening or periprosthetic fracture. ASSESSMENT: 3 months status post right reverse total shoulder arthroplasty SUMMARY/PLAN: Lorenzo is doing well. He can finish up with physical therapy. He has no restrictions with his arm may return to activity as he tolerates. He will return to clinic on an as-needed basis. Jocy Wadsworth PA-C documented in this encounter [facility] 09-17-2022 History of Present illness Narrative Radiology Service Progress Note PATIENT NAME: Lorenzo Reis DATE OF SERVICE: September 17, 2022 TIME: 7:56 AM PATIENT IDENTITY VERIFICATION COMPLETED USING TWO (2) IDENTIFIERS: Name and Date of confirmed by patient verbally. FALL SCREENING: Has the patient had 2 falls in the last year or 1 fall with injury or currently using an Ambulatory Assistive Device (Walker, Cane, Wheelchair, Crutches, etc.)? No PATIENT GENDER DATA: Male PATIENT RELEVANT IMPLANT DATA REVIEWED: Not Applicable RADIOLOGY DEPARTMENT: General X-ray: Exam(s) Completed: Upper Extremity X-Ray(s): Shoulder, AP / TRUE AP / AXILLARY right PERIPHERAL IV DATA: Not applicable SIGNED BY: SU Mahoney September 17, 2022 7:56 AM documented in this encounter [facility] 09-06-2022 History of Present illness Narrative Episode Visit Count: 10 Therapist That Will Accept/Oversee The Plan Of Care: Robert Soto Start of Care Date: 07/02/22 Onset Date: 08/11/17 Plan of Care Certification Date: 08/16/22 Next Certification Due Date: 09/20/22 Patient Identified by Name and Date of : Yes REHABILITATION AND SPORTS THERAPY PHYSICAL THERAPY TREATMENT NOTE ASSESSMENT: Lorenzo Reis tolerated the session with no issues. He demonstrated good tolerance to all therapeutic exercises. The patient will continue to benefit from ongoing skilled physical therapy to progress toward set goals. PLAN FOR NEXT VISIT: Shoulder strengthening as tolerated SUBJECTIVE: Patient Reason for Visit: No pain. Doing well. Using makeshift/home items to help with strengthening exercises Pain: Pain Pain Location: Shoulder - Right OBJECTIVE MEASURES WITH LEVEL OF FUNCTION: UE AROM R Shoulder Flex: 134 Degrees UE PROM R Shoulder Flex: 138 Degrees (AAROM using pulleys) TREATMENT: Therapeutic Exercise: 2: Pulleys flexion seated x 4 min 3: Standing bicep curl 5# x 10 4: Standing bicep curl 8# 2 x 10 reps 5: Standing scaption 3# x 10 6: Standing scaption 5# 2 x 8-10 reps 7: Standing shoulder Ext PTB + GTB 3 x 15 reps 8: Single arm row PTB + GTB 3 x 12 reps 9: Ball tosses on wall x 2 min x 2 sets Skilled Intervention: Patient was educated in proper exercise technique and purpose for exercises. Correct performance of therapeutic exercises was facilitated with verbal and visual cuing. Billing Therapeutic Exercise Treatment Minutes: 44 Total Treatment Time Minutes (timed/untimed): 44 Robert Soto PT documented in this encounter [facility] 09-02-2022 History of Present illness Narrative INSIGHT CD TELEPHONIC OUTREACH Provider Action/FYI: Patient states: -PT coming along, took 66 yrs to mess us his shoulder, figures it'll take a while to get better (right reverse total shoulder arthroscopy 06/25/22) - manages [facility] for him (his does NOT use [facility]) -meds up to date -no concerns Contact made with patient: Yes Patient identified by name and . Discussed care with patient It s nice talking to you again. As a reminder, this is our bi-weekly check-in where I will be asking you questions about your health. This will only take a few minutes of your time. Is this a good time? Yes Symptoms What Chronic Disease(s) does the patient have: CHF Do you check your blood pressures at home? No Do you have new or worse shortness of breath with activity? No Do you have new or worsening trouble breathing while lying flat? No Do you have new or worsening swelling of legs, feet or ankles? No Do you check your daily weight at home? No Are you having any other symptoms that your PCP needs to know about? No Symptoms: na Symptom Escalation ANTONIETA Education Ordered -: No The patient required an escalation for symptom(s)? No Medications Do you have any questions about taking your medication or which medications you should be on? No Do you need any medication refills at this time, including any of the medications you might take only when needed? No Social We would like to make sure you have what you need so that your basic needs are met- including your personal safety, food, housing, transportation and medications? Would you like to speak with a social work child study team director to help give you support for any of these needs? No It can be normal to feel anxious or down during a time like this. Would you like to talk to a mental health professional about how you have been feeling? No Closing Thank you for taking the time to talk with me today. We want to work with you to ensure that we are keeping your medical condition(s) well-controlled and to keep you healthy and out of the doctor's office or hospital. It s also not too late for me to sign you up for automated weekly questionnaires through [employer]. This is an easy way for us to stay connected each week. Are you interested? No, I understand. We can always sign you up in the future if you change your mind. Just as a reminder, will continue to call you every other week to check in on your health. Our calls should take 10-15 minutes or less. Remember, if you have concerns in between our calls, please call your PCP's office right away. Thank you. Enter next patient outreach date for two weeks on the same day of the week as today in the Track Pt Outreach and End outreach. documented in this encounter [facility] 09-01-2022 History of Present illness Narrative INSIGHT CDM TELEPHONIC OUTREACH Provider Action/FYI: Home/Mobile: LVM Sent MCM Contact made with patient: No - Left message Hello my name is Luz Mac RN your Head Grinder from the [facility] I am calling today for your bi-weekly check in. I am sorry I missed your call. I will reach out to you again tomorrow. (if the third call I will reach out to you again next week) Enter next patient outreach date for the following using the Track Pt Outreach. End outreach. documented in this encounter [facility] 08-31-2022 History of Present illness Narrative Episode Visit Count: 9 Therapist That Will Accept/Oversee The Plan Of Care: Robert Soto Start of Care Date: 07/02/22 Onset Date: 08/11/17 Plan of Care Certification Date: 08/16/22 Next Certification Due Date: 09/20/22 Patient Identified by Name and Date of : Yes REHABILITATION AND SPORTS THERAPY PHYSICAL THERAPY TREATMENT NOTE ASSESSMENT: Lorenzo Reis tolerated the session with decreased symptoms. He demonstrated improvements in pain with R shoulder flexion after MT techniques. The patient will continue to benefit from ongoing skilled physical therapy to progress toward set goals. PLAN FOR NEXT VISIT: Continue with shoulder strengthening per protocol. STM as needed SUBJECTIVE: Patient Reason for Visit: Moving hay and got pain in the R shoulder and now it really hurts. sharp pain. Pain: Pain Pain Level: 2 Pain Location: Shoulder - Right OBJECTIVE MEASURES WITH LEVEL OF FUNCTION: Familiar pain brought on with resisted bicep curl of the RUE TREATMENT: Therapeutic Exercise: 2: UBE Resistance 0.0 x 4 min (subjective taken) 3: Standing R bicep curl 2# x 10 (no issue) 4: Standing bicep curl 3# x 10 reps 5: Standing bicep curl 5# 2 x 12 reps 6: Shoulder jasmyn flexion x 20 8: Scapular stabilization ball on wall CW, CCW, side to side, up and down 2x10 each Skilled Intervention: Patient was educated in proper exercise technique and purpose for exercises. Correct performance of therapeutic exercises was facilitated with verbal and visual cuing. Manual Therapy: 1: Circular effluerage over bicep and anterior deltoid musculature 2: Deep tissue massage over anterior deltoid to tolerance (using only fingertips) Skilled Intervention: Manual skills to improve joint mobility, ROM, and decrease pain. Utilized anatomy knowledge of the therapist, and assessment of patient's response to intervention. Billing Therapeutic Exercise Treatment Minutes: 30 Manual TherapyTreatment Minutes: 10 Total Treatment Time Minutes (timed/untimed): 40 Robetr Soto PT documented in this encounter [facility] 08-23-2022 History of Present illness Narrative Episode Visit Count: 8 Therapist That Will Accept/Oversee The Plan Of Care: Robert Soto Start of Care Date: 07/02/22 Onset Date: 08/11/17 Plan of Care Certification Date: 08/16/22 Next Certification Due Date: 09/20/22 Patient Identified by Name and Date of : Yes REHABILITATION AND SPORTS THERAPY PHYSICAL THERAPY TREATMENT NOTE ASSESSMENT: Lorenzo Reis tolerated the session with fatigue and expected muscle soreness. He demonstrated improvements in reaching #1-4 with 1# weight. The patient will continue to benefit from ongoing skilled physical therapy to progress toward set goals. PLAN FOR NEXT VISIT: Progress Shoulder strengthenign and ROM as tolerated SUBJECTIVE: Patient Reason for Visit: Pt reports that there is no change in his R shoulder. 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 Pain: Pain Pain Level: 0 Pain Location: Shoulder - Right Post Treatment Pain Post Treatment Pain Level: 0 Post Treatment Pain Location: Shoulder - Right OBJECTIVE MEASURES WITH LEVEL OF FUNCTION: UE AROM R Shoulder Flex: 120 Degrees (AAROM wall slides) TREATMENT: Therapeutic Exercise: 1: Standing wall slides 2x5 (pt to use in between tasks at work for good stretch) 2: UBE Resistance 2.7 x 4 min 3: Reaching to 1-4# 3x30 seconds 4: Reachin #1-4 with 1# 1x30 seconds 5: Standing scaption 3# 2x10 6: Seated flexion with 3# 2x10 7: Prone Y,I, extension, and rows 1x10 each RUE 8: Scapular stabilization ball on wall CW, CCW, side to side, up and down 2x10 each (tenderness noted in R anterior shoudler) Skilled Intervention: Patient was educated in proper exercise technique and purpose for exercises. Skilled judgment was provided in selection of appropriate interventions. Correct performance of therapeutic exercises was facilitated with verbal and visual cuing. Billing Therapeutic Exercise Treatment Minutes: 40 Total Treatment Time Minutes (timed/untimed): 40 Deanna Sainzba, LENS CEMENTER Emy Palm PT documented in this encounter [facility] 08-16-2022 History of Present illness Narrative Episode Visit Count: 7 Therapist That Will Accept/Oversee The Plan Of Care: Robert Soto Start of Care Date: 07/02/22 Onset Date: 08/11/17 Plan of Care Certification Date: 08/16/22 Next Certification Due Date: 09/20/22 Patient Identified by Name and Date of : Yes REHABILITATION AND SPORTS THERAPY PHYSICAL THERAPY PROGRESS REPORT PLAN OF CARE UPDATE: Assessment: Lorenzo Reis demonstrates difficulty with lifting, reaching behind back, reaching overhead, and use hand with arm at shoulder level and improvements in overall shoulder AROM, strength, decreased pain and improved independence with the HEP. He hasprogressed toward goals. Patient continues to present with impairments in ADL's, independence in exercise, range of motion, and strength that interfere with lifting, reaching behind back, reaching overhead, pushing, pulling . Current prognosis is Excellent due to: current objective clinical presentation, good overall health status . He will benefit from continued skilled therapy services to meet the updated goals for this plan of care as noted below. Goals updated 08/16/2022 Goals for Episode of Care: created on 07/02/22 through 09/10/22 Pt will be able to perform all therapeutic exercises without pain - Met so far Moore in home exercise program. - MET, so far Perform reaching overhead without pain. - Progressing, will continue Increase ROM of R shoulder to 120 degrees of elevation or better for ease of dressing and donning coat - Progressing, will continue Increased strength of R shoulder to 4/5 or greater for ease of work duties - Progressing, will continue Patient Goals: Improve function of shoulder Patient Goals: Improve function of shoulder Planned Interventions, Frequency, and Duration: 1x/week, 4 weeks Total Number of Visits Planned: 4 Patient to be seen for Therapeutic exercise (83502), Neuromuscular re-education (11727), Manual therapy (37198), Self-detention management (20262), Patient/Family/Caregiver Education PLAN FOR NEXT VISIT: Progress Shoulder strengthenign and ROM as tolerated SUBJECTIVE: Patient Reason for Visit: Pt states that his shoulder was sore. He was hauling stuff and slipped and grab himself to keep himself upright. Patient Goals: Improve function of shoulder Functional Limitations: lifting, reaching behind back, reaching overhead, pushing, pulling Prior Level of Function: Independent without limitations Intake Information: Prescription present Previous Treatment: Surgery Pain: Pain Pain Level: 0 Pain Location: Shoulder - Right Post Treatment Pain Post Treatment Pain Location: Shoulder - Right PROMIS Scales Higher is Better 10/30/2021 01/20/2022 GH Physical - Score 47.7 (Good) 61.9 (Excellent) GH Physical - Percentile 41 % 88 % GH Mental - Score 53.3 (Very Good) 53.3 (Very Good) GH Mental - Percentile 63 % 63 % T-scores: mean of general population = 50. 5 points is clinically meaningfully difference Percentiles provide an indication of how the patient's score ranks in relation to the general population. Higher percentile rankings indicate better function/quality of life. 50th percentile is the average of the general population and indicates half of respondents had a worse score. T-scores: mean of general population = 50. 5 points is clinically meaningfully difference Percentiles provide an indication of how the patient's score ranks in relation to the general population. Higher percentile rankings indicate better function/quality of life. 50th percentile is the average of the general population and indicates half of respondents had a worse score. OBJECTIVE MEASURES WITH LEVEL OF FUNCTION: Cervical Spine ROM Cervical ROM : (WFL) UE AROM R Shoulder Flex: 113 Degrees R Shoulder External Rotation: 20 Degrees UE and Cervical Strength Strength Tested: Shoulder All R Shoulder Flexion: 4-/5 R Shoulder Abduction (C5): 4-/5 R Shoulder Internal Rotation: 4/5 R Shoulder External Rotation: 3+/5 R Elbow Flexion (C6): 4+/5 TREATMENT: Therapeutic Exercise: 1: All objective measures taken this session 2: UBE Resistance 2.7 x 4 min 3: Reaching to 1-4# 2 x 10 4: Reaching 1-4 1# x 6 (too painful) 5: Standing bicep curl 5# x 10 6: Standing bicep curl 8# 2 x 10 Skilled Intervention: Patient was educated in proper exercise technique and purpose for exercises. Provided written instruction for home exercise program to facilitate proper performance and compliance. Correct performance of therapeutic exercises was facilitated with verbal and visual cuing. Billing Therapeutic Exercise Treatment Minutes: 40 Total Treatment Time Minutes (timed/untimed): 40 Robert Soto PT documented in this encounter [facility] 08-10-2022 History of Present illness Narrative Episode Visit Count: 6 Therapist That Will Accept/Oversee The Plan Of Care: Robert Soto Start of Care Date: 07/02/22 Onset Date: (years) Plan of Care Certification Date: 07/02/22 Next Certification Due Date: 08/06/22 Patient Identified by Name and Date of : Yes REHABILITATION AND SPORTS THERAPY PHYSICAL THERAPY TREATMENT NOTE ASSESSMENT: Lorenzo Reis tolerated the session with no issues. He demonstrated improvements in tolerance to increased load with therapeutic strengthening exercises. The patient will continue to benefit from ongoing skilled physical therapy to progress toward set goals and for reassessment by supervising therapist. PLAN FOR NEXT VISIT: POC update SUBJECTIVE: Patient Reason for Visit: Pt states that he feels stiff. Physician told him that he has some scar tissue that tears when he gets a pop in the shoulder. Pain: Pain Pain Level: (minimal) Pain Location: Shoulder - Right Post Treatment Pain Post Treatment Pain Location: Shoulder - Right OBJECTIVE MEASURES WITH LEVEL OF FUNCTION: Shoulder AAROM flexion (Right) at 110 degrees TREATMENT: Therapeutic Exercise: 1: Seated shoulder jasmyn x 3 min (discussed holding for 10 sec at the top to stretch the shoulder now) 2: Standing scaption 3# x 12 reps 3: Standing scaption 5# 2 x 10 reps 4: Standing bicep curl 5# 3 x 10 reps 5: Standing IR GTB 3 x 10 reps 6: Standing ER with wand x 12 reps holding 10 sec (discussed being a little more aggressive with this stretch) Skilled Intervention: Patient was educated in proper exercise technique and purpose for exercises. Correct performance of therapeutic exercises was facilitated with verbal and visual cuing. Billing Therapeutic Exercise Treatment Minutes: 45 Total Treatment Time Minutes (timed/untimed): 45 Robert Soto PT documented in this encounter [facility] 08-06-2022 History of Present illness Narrative PAIN EVALUATION No data found in the last 1 encounters. Lorenzo Reis returns to follow-up 6 weeks following reverse arthroplasty. Pain has been improving steadily and range of motion also improving with light use at home and with physical therapy. On exam there is improvement in overhead and rotational range of motion. Pain is minimal throughout the exam today. There is no catching or grinding of the shoulder. There is no tenderness to palpation over the scapular spine or acromion. Active forward elevation is 90 with a firm endpoint and external rotation is 0. There is also difficulty with rotation behind the back. AP, outlet, axillary views of the shoulder reviewed in the office today demonstrate unchanged alignment of reverse arthroplasty components without evidence of fracture or any loosening of the implants. Today we discussed progress 6 weeks following surgery. Progress has been good despite some scar tissue and stiffness and the shoulder may be used for all activities as tolerated within limits of pain. Recommended continuing physical therapy and return to see me again in 6 weeks with repeat x-rays and clinical exam. Yang Altamirano MD Shoulder & Elbow Surgeon Department of Orthopaedic Surgery [facility] documented in this encounter [facility] 08-06-2022 History of Present illness Narrative Radiology Service Progress Note PATIENT NAME: Lorenzo Reis DATE OF SERVICE: August 06, 2022 TIME: 9:00 AM PATIENT IDENTITY VERIFICATION COMPLETED USING TWO (2) IDENTIFIERS: Name and Date of confirmed by patient verbally. FALL SCREENING: Has the patient had 2 falls in the last year or 1 fall with injury or currently using an Ambulatory Assistive Device (Walker, Cane, Wheelchair, Crutches, etc.)? No PATIENT GENDER DATA: Male PATIENT RELEVANT IMPLANT DATA REVIEWED: Not Applicable RADIOLOGY DEPARTMENT: General X-ray: Exam(s) Completed: Upper Extremity X-Ray(s): Shoulder, AP / TRUE AP / AXILLARY right PERIPHERAL IV DATA: Not applicable SIGNED BY: SU Mahoney August 06, 2022 9:00 AM documented in this encounter [facility] 08-02-2022 History of Present illness Narrative Episode Visit Count: 5 Therapist That Will Accept/Oversee The Plan Of Care: Robert Soto Start of Care Date: 07/02/22 Onset Date: (years) Plan of Care Certification Date: 07/02/22 Next Certification Due Date: 08/06/22 Patient Identified by Name and Date of : Yes REHABILITATION AND SPORTS THERAPY PHYSICAL THERAPY TREATMENT NOTE ASSESSMENT: Lorenzo Reis tolerated the session with no issues. He demonstrated improvements in improved tolerance to strengthening. The patient will continue to benefit from ongoing skilled physical therapy to progress toward set goals. PLAN FOR NEXT VISIT: Progress strengthening of deltoid as tolerated SUBJECTIVE: Patient Reason for Visit: Pt states things are goign well. Sore sometyimes due to weather. Sore today. Exercises are going well. Pain: Pain Pain Level: (Not rated) Pain Location: Shoulder - Right Description: Aching Post Treatment Pain Post Treatment Pain Location: Shoulder - Right OBJECTIVE MEASURES WITH LEVEL OF FUNCTION: UE AROM R Shoulder Flex: 112 Degrees (no strap assist) TREATMENT: Therapeutic Exercise: 1: Seated shoulder jasmyn x 3 min 2: Standing scaption 1# x 10 3: Standing scaption 2# 3 x 10 reps 4: Standing Bicep curl 1# x 10 5: Standing bicep curl 2# x 10 6: Standing bicep curl 3# 3 x 10 7: Sidelying ER against gravity 2 x 10 reps Skilled Intervention: Patient was educated in proper exercise technique and purpose for exercises. Correct performance of therapeutic exercises was facilitated with verbal and visual cuing. Billing Therapeutic Exercise Treatment Minutes: 45 Total Treatment Time Minutes (timed/untimed): 45 Robert Soto PT documented in this encounter [facility] 07-29-2022 History of Present illness Narrative INSIGHT CDM TELEPHONIC OUTREACH Provider Action/FYI: Home/Mobile LVM Sent MCM Contact made with patient: No - Left message Hello my name is Luz Mac RN your Head Grinder from the [facility] I am calling today for your bi-weekly check in. I am sorry I missed your call. I will reach out to you again tomorrow. (if the third call I will reach out to you again next week) Enter next patient outreach date for the following business day using the Track Pt Outreach. End outreach. documented in this encounter [facility] 07-27-2022 History of Present illness Narrative [facility] Enrollment Provider Action/FYI: Ishmael this is Darlene Collins RN your nurse Head Grinder. I am calling to provide you with a phone number to connect you with [facility] services. This number is available 7 days a week from 8am-8pm and provides you with one call access to nursing, appointments, and other valuable resources. I can also send this information to your [employer]. Please take the time to write this number down . - per pt, he does not utilize [employer]/ his checks it periodically - agreeable to monthly telephonic outreach - denies needs or concerns at this time Patient referred by: [facility] Ramón Contact made with patient: Yes - Patient identified by name and . Discussed care with patient Ishmael this is Darlene Collins RN and I am calling from Mark Ramirez MD office at the [facility]. I am a RN Head Grinder with our [facility] Chronic [facility] Management program. Mark Ramirez MD wanted me to reach out to help you manage your health at home. Our goal is to keep you well at home. We want to help you manage your chronic disease by providing a safety net of resources around you, getting you the care you need in a timely manner, and hopefully keep you out of the ED and hospital. I will send you a few questions once a week through your [employer] account. It will automatically show up for you to complete. There are simple questions that will help us identify if you have any concerns or symptoms and I will call you to help get what you need. We will be able to connect you, review your symptoms, do an on demand visit, or communicate with Mark Ramirez MD if needed. I am going to sign you up for the program now. Enrollment Questions: Let's get you enrolled in the program. Yes, Do you have regular access to a computer/smartphone? No, Are you offering patient a biweekly phone call? yes/no: Yes. Goal Setting: I would like to take some time today to discuss your personal health goals. Patient does not have a goal. We will review during our next conversations to help support you. Most people know what to do to become healthier, yet struggle to put it into action on their own.It can be hard to maintain a healthy lifestyle, especially when life is so stressful. Can we connect you with a [facility] Health Loss Mitigation Specialist to find a program that could help you meet your goals? No Closing: Patient accepts telephonic outreach. ANTONIETA Education Ordered -: No Thank you for your time today. I am excited to work together in managing your health! I will check back within in two weeks to see how things are going. If questions or concerns arise between phone calls, please reach out to your PCP s office. (Place in active status for [facility] and place name in care team and update next patient outreach data to next business day two weeks from today s date) [facility] CDM Enrollment Provider Action/FYI: Patient referred by: [facility] Ramón Contact made with patient: No - Left Message: Hi my name is Darlene Collins RN and I am calling from the [facility] on behalf of your PCP, Mark Ramirez MD. We are excited to share with you a new program to help you manage your health. Please call me back at [phone] between the hours of 8am-5pm Tuesday-Tuesday. You will receive another phone call from me within the next two business days. I hope you can take the time to speak with me. (Keep encounter open and attempt 2nd outreach in two business days from today) END OUTREACH documented in this encounter [facility] 07-27-2022 History of Present illness Narrative Episode Visit Count: 4 Therapist That Will Accept/Oversee The Plan Of Care: Robert Soto Start of Care Date: 07/02/22 Onset Date: (years) Plan of Care Certification Date: 07/02/22 Next Certification Due Date: 08/06/22 Patient Identified by Name and Date of : Yes REHABILITATION AND SPORTS THERAPY PHYSICAL THERAPY TREATMENT NOTE ASSESSMENT: Lorenzo Reis tolerated the session with no issues. He demonstrated good tolerance to newly added therapeutic exercises. The patient will continue to benefit from ongoing skilled physical therapy to progress toward set goals. PLAN FOR NEXT VISIT: Progress AROM as tolerated and per protocol SUBJECTIVE: Patient Reason for Visit: Pt doing well overall. Exercises are going fine. Pain: Pain Pain Level: (Not rated) Pain Location: Shoulder - Right Post Treatment Pain Post Treatment Pain Location: Shoulder - Right OBJECTIVE MEASURES WITH LEVEL OF FUNCTION: No pain with therapeutic exercises TREATMENT: Therapeutic Exercise: 1: Seated shoulder jasmyn x 3 min 2: Standing abd/flex/IR iso 2 x 10 each holding 3 sec each 3: Standing AROM scaption to shoulder height 2 x 10 reps 4: Standing shoulder ext AAROM wand 2 x 15 reps 5: Seated scapular retractions x 15 reps Skilled Intervention: Patient was educated in proper exercise technique and purpose for exercises. Provided written instruction for home exercise program to facilitate proper performance and compliance. Correct performance of therapeutic exercises was facilitated with verbal and visual cuing. Billing Therapeutic Exercise Treatment Minutes: 38 Total Treatment Time Minutes (timed/untimed): 38 Robert Soto PT documented in this encounter [facility] 07-15-2022 History of Present illness Narrative Episode Visit Count: 2 Therapist That Will Accept/Oversee The Plan Of Care: Robert Soto Start of Care Date: 07/02/22 Onset Date: (years) Plan of Care Certification Date: 07/02/22 Next Certification Due Date: 08/06/22 Patient Identified by Name and Date of : Yes REHABILITATION AND SPORTS THERAPY PHYSICAL THERAPY TREATMENT NOTE ASSESSMENT: Lorenzo Reis tolerated the session with expected muscle soreness. He demonstrated good tolerance to all therapeutic exercises performed this session. The patient will continue to benefit from ongoing skilled physical therapy to progress toward set goals. PLAN FOR NEXT VISIT: Progress exercises per protocol SUBJECTIVE: Patient Reason for Visit: No Pain at the moment. Can wake up with the shoulder feeling sore sometimes. Exercises are going well. Pain: Pain Pain Level: 0 Pain Location: Shoulder - Right Post Treatment Pain Post Treatment Pain Level: No Change Post Treatment Pain Location: Shoulder - Right OBJECTIVE MEASURES WITH LEVEL OF FUNCTION: UE AROM R Shoulder Flex: 85 Degrees (AAROM using wand) TREATMENT: Therapeutic Exercise: 1: Seated shoulder jasmyn x 3 min 2: Seated wand flexion x 10 3: Seated bicep curl wand x 10 4: Seated wand ER/IR 2 x 10 5: Standing shoulder ABD iso 2 x 10 with 5 sec holds 6: Standing shoulder flexion iso 2 x 10 with 5 sec holds Skilled Intervention: Patient was educated in proper exercise technique and purpose for exercises. Provided written instruction for home exercise program to facilitate proper performance and compliance. Correct performance of therapeutic exercises was facilitated with verbal and visual cuing. Billing Therapeutic Exercise Treatment Minutes: 42 Total Treatment Time Minutes (timed/untimed): 42 Robert Soto PT documented in this encounter [facility] 07-02-2022 History of Present illness Narrative Jocy Wadsworth PA-C Department of Orthopaedics July 02, 2022 SURGERY: Right reverse total shoulder arthroplasty, open biceps tenodesis CHIEF COMPLAINT: Established Patient, Follow Up, and Post Op of the Right Shoulder. SUBJECTIVE: Mr. Reis returns to clinic today now 1 week status post right reverse total shoulder arthroplasty performed on 06/25/2022. Has been out of his sling using his arm for light activity. Taking Tylenol for pain. Has undergone his first physical therapy appointment. No concerns with his incision. Exam: Examination of right shoulder reveals well-healed anterior incision. Active forward elevation to 60. Sensation intact to lateral deltoid. Appropriate deltoid activation against resistance. Imaging: I did order and interpret radiographs today, 3 view right shoulder. Right reverse total shoulder arthroplasty intact no evidence of mechanical loosening or periprosthetic fracture. ASSESSMENT: 1 week status post right reverse total shoulder arthroplasty SUMMARY/PLAN: Mr. Reis is doing well. Continues arm for the activity. Continue physical therapy. No refills needed. He can shower over his incision with soap and water. Sling is optional. Plan recheck in 4 weeks with repeat x-ray at that time. Jocy Wadsworth PA-C documented in this encounter [facility] 07-02-2022 History of Present illness Narrative Radiology Service Progress Note PATIENT NAME: Lornezo Reis DATE OF SERVICE: July 02, 2022 TIME: 1:20 PM PATIENT IDENTITY VERIFICATION COMPLETED USING TWO (2) IDENTIFIERS: Name and Date of confirmed by patient verbally. FALL SCREENING: Has the patient had 2 falls in the last year or 1 fall with injury or currently using an Ambulatory Assistive Device (Walker, Cane, Wheelchair, Crutches, etc.)? No PATIENT GENDER DATA: Male PATIENT RELEVANT IMPLANT DATA REVIEWED: Not Applicable RADIOLOGY DEPARTMENT: General X-ray: Exam(s) Completed: Upper Extremity X-Ray(s): Shoulder, AP / TRUE AP / AXILLARY right PERIPHERAL IV DATA: Not applicable SIGNED BY: SU Mahoney July 02, 2022 1:20 PM documented in this encounter [facility] 06-14-2022 Miscellaneous Notes Contacted the patient and scheduled. Left VM for the patient to schedule post op PT evaluation. Please call patient and assist with post-op physical therapy appointment. Patient is having surgery 06-25-2022. He should be seen approximately 1 week post-op. Thank you. Mary Kam documented in this encounter [facility] 06-08-2022 Miscellaneous Notes Called and left message for patient to return call to [facility] - for review of Effient instructions for surgery. Pt is scheduled for reverse total shoulder replacement at [facility] with Dr. Altamirano 06/25/2022 at [facility]. Pt hx of cardiac stents placed 09/2021. He is currently taking Effient. Pt states confirmed with surgeon's office they will proceed with surgery while on Effient but pt will not be given a block. I just don't see this is epic. Wanted to confirm in writing, both surgeon's office and table games floor supervisor is aware and agreeable with this. documented in this encounter [facility] 06-07-2022 Instructions Angelique Sharpe APRN.CNP - 06/07/2022 8:21 AM EST PATIENT PREOPERATIVE INSTRUCTIONS Yang Altamirano,* has scheduled you for your procedure at this surgery center: [facility]: [phone] -- [address] [address]. Please read below carefully for your personalized instructions. Dietary Restrictions: - No solid food after midnight. - You may have 12 ounces of clear liquids (water, clear juices such as apple juice or gatorade, carbonated beverages, clear tea, black coffee, jello) until 2 hours before scheduled arrival at facility. No red/purple coloring and no creamer/sugar Medications: Unless instructed differently below, stay on all of your medications until your surgery. Approved medications to take the morning of surgery with a sip of water: Albuterol, Atorvastatin, Finasteride, Levothyroxine, Metoprolol If you take any medications for erectile dysfunction-Cialis (Tadalafil), Levitra, Staxyn (Vardenafil) Viagra (Sildenenafil please do not take these for 48 hours before surgery. If you start any new medications after today's visit, please contact the surgeon's office. Blood Thinning Medications: - Stop NSAIDS (Ibuprofen, Advil, Aleve, Motrin, Celebrex, Mobic, etc.) 7 days before surgery, as directed by your surgeon. - Do NOT stop aspirin or other anticoagulants without consulting with your table games floor supervisor or prescribing physician. - Stop Vitamin E, ALL multi-vitamins, herbals and dietary supplements 7 days before surgery. - You may take Tylenol (Acetaminophen) or any of your pain medications that do not contain aspirin or NSAIDS as needed. Important Reminders: - If you use CPAP/BIPAP, bring the machine with you to the surgery center. - If you are prescribed inhalers for breathing, continue using them. - Candy, mints, and tobacco products are NOT permitted the morning of surgery. - Hearing aids, dentures and glasses may be worn the morning of surgery. - NO jewelry, body piercings, makeup, hairpins or contacts are to be worn the day of surgery. If you develop symptoms such as a fever, cold, or flu, or have other changes to your health within TWO DAYS of scheduled surgery or the morning of surgery, please contact the surgery center above. Personal Belongings: -Please have photo ID and insurance cards. -If you do not have a copy of advance directives on file with us, please bring a copy with you on the day of surgery. - Leave ALL valuables and money at home or with family members. For Outpatient Procedures: - YOU MUST HAVE A RESPONSIBLE TALENT SCOUT TAKE YOU HOME. A HEATING PLANT SUPERINTENDENT OR GAMBLING BOX PERSON CANNOT BE MADE A RESPONSIBLE TALENT SCOUT. - We recommend that a responsible person stays with you overnight to take care of you. - You cannot stay in a hotel alone after outpatient surgery. You will not be permitted to have your surgery, if you do not have someone to take care of you. Arrival Time for Surgery: - The Surgery Center or hospital where you are having surgery will call the afternoon before surgery (or Tuesday for Tuesday surgery) with a scheduled arrival time. - If you have not heard by 4 pm, please contact the surgery center above. Please be aware that emergency situations arise, which may delay or change your surgical time. If this happens, we will notify you as soon as possible and regret any inconvenience. If you already have an Advance Directive, please fax a copy to [phone] or email to for it to be added to your chart. If you do not have an Advance Directive, you can find the appropriate form and more information at [email or web address]. We recommend that you complete the Advance Directive form found on the website and bring it with you the day of your surgery. It can be witnessed and scanned into your chart that day. Angelique Sharpe APRN.CNP documented in this encounter [facility] 06-07-2022 History and physical note HISTORY AND PHYSICAL EXAMINATION SERVICE DATE: 06/07/2022 SERVICE TIME: 11:43 AM PRIMARY CARE PHYSICIAN: Mark Ramirez MD REASON FOR VISIT: Lorenzo Reis is a 66 year old male who is scheduled for Procedure(s): REVERSE TOTAL SHOULDER ARTHROPLASTY (Right) at the request of Dr. Yang Altamirano for consultation. My final recommendation will be communicated back to the requesting physician by way of shared medical record or letter. Subjective The patient has the following: ACTIVE PROBLEM LIST Mixed Hyperlipidemia Umbilical Hernia Without Mention of Obstruction Or Gangrene Shoulder Arthritis Family History of Prostate Cancer Elevated Psa Bph (Benign Prostatic Hyperplasia) Frequency of Micturition Acquired Hypothyroidism Benign Non-Nodular Prostatic Hyperplasia Chronic Prostatitis Tendonitis, Achilles, Right Pedro's Deformity of Right Heel Smoker History of Pulmonary Embolism Malnutrition of Mild Degree (Hcc) Obesity, Class I, Bmi 30-34.9 Pulmonary Nodules Multiple Lacunar Infarcts (Hcc) Nocturia History of Pulmonary Embolus (Pe) 2V CAD s/p complex PCI (09/23/21) Essential Hypertension, Benign COVID-19 Immunization Status Overdue - COVID-19 VACCINE (3 - Booster for Moderna series) Overdue since 05/19/2021 03/24/2021 Imm Admin: COVID-19 original vaccine, full dose, monovalent (MODERNA) 02/22/2021 Imm Admin: COVID-19 original vaccine, full dose, monovalent (MODERNA) CHIEF COMPLAINT: Pre-op exam HPI: ARA is a 66 yo seen for PAC due to scheduled above surgery because of right rotator cuff tear. 04/04/2022 Dr. Altamirano CHIEF COMPLAINT: Right shoulder pain and weakness PAIN EVALUATION 04/02/2022 0743 Pain Level: 4 Pain Location: Shoulder-Right Description: Sharp;Shooting Duration Units: Months Frequency: Continuous Intervention/Comfort measure: Medication tylenol Comments: cortisone injection, last one: 02/18/22 Lorenzo Reis is a 66 year old man who presents today for evaluation of his right shoulder. He has been referred by my partner Dr. Chavez for persistent painful weakness of the shoulder with findings of a complete and retracted tear of the supraspinatus tendon by MRI. He has pain at rest which is growing more bothersome and difficulty with sleep as well due to pain in shoulder. His pain and feelings of weakness with attempting to lift anything overhead. He has painful use of the arm with rotation just for daily tasks as well. He has been not on relief with conservative treatment including activity modification and medical management. REVIEW OF SYSTEMS: General: No weight loss, malaise or fevers. Neurological: No history of TIA's, stroke, REPORTS ANALYSIS MANAGER tumor, impaired sensorium, hemiplegia, paraplegia or quadraplegia. No neurological symptoms or problems. Respiratory: Positive for: tobacco use (1ppd). Negative for: asthma, COPD, pneumonia within 6 weeks, URI < 2 weeks and obstructive sleep apnea. Cardiovascular: Positive for: anticoagulation therapy (Effient), CAD, DVT/PE (?2020), hyperlipidemia (on rx) and hypertension (on rx) Patient's last office visit with table games floor supervisor, [facility], The following tests and/or procedures were performed: cardiac stents. Negative for: arrhythmia, atrial fibrillation, chest pain, CHF, congenital heart defect, recent NC, murmur/valvular heart disease, open heart surgery and valve surgery. GI: No history of GI symptoms or problems. No history of esophageal varices, recent ascites, or ETOH greater than 2 drinks per day. : Positive for: BPH (on rx). Negative for: urinary incontinence, nephrolithiasis, renal failure and urinary tract infection. Endocrine: No history of diabetes. Has not taken steroids within the past 30 days. No history of endocrinological symptoms or problems. Positive for: hypothyroidism (on rx). Hematology: Positive for: bruises/bleeds easily and chronic anti-coagulation/platelet meds. Patient is on anti-coagulation/platelet medication(s): Prasugrel. Negative for: anemia and transfusion of at least 4 units within 72 hours prior to surgery. Oncology: No history of CA metastasis, chemo within 30 days, or radiotherapy within 90 days. No history of oncological symptoms or problems. Psych: No history of psychiatric symptoms or problems. Musculoskeletal: See HPI. Skin: Negative for lesions, rash and itching. PAST MEDICAL HISTORY Diagnosis Date Acute pulmonary embolism (HCC) 06/2020 unknown cause; pt on Eliquis Benign neoplasm of rectum and anal canal History of peptic ulcer disease Pure hypercholesterolemia Snoring Tobacco use Unspecified hypothyroidism PAST SURGICAL HISTORY Procedure Laterality Date COLONOSCOPY FLX DX W/COLLJ SPEC WHEN PFRMD 06/16/2009 Colonoscopy COLONOSCOPY FLX DX W/COLLJ SPEC WHEN PFRMD 08/05/2016 Colonoscopy COLONOSCOPY FLX DX W/COLLJ SPEC WHEN PFRMD 02/15/2018 multiple adenomatous polyps, repeat in 3 years COLONOSCOPY FLX DX W/COLLJ SPEC WHEN PFRMD 12/23/2020 COLSC FLX W/RMVL OF TUMOR POLYP LESION SNARE TQ 10/21/2006 Large polyp at 50cm, 3 small sessile polyps in low rectosigmoid COLSC FLX W/RMVL OF TUMOR POLYP LESION SNARE TQ 06/25/2011 polyp in rectum DIAGNOSIS/HISTORY left 5th finger, laceration repair HERNIA REPAIR HX PAST SURGICAL HISTORY OF Right 1979 right shoulder Dislocated collar bone, ORIF Dr. Kilgore PAST SURGICAL HISTORY OF N/A 08/20/2020 Prostate biopsy [facility] PRIMARY OPEN/PRQ RUPTURED ACHILLES W/GRAFT Right 2018 RPR UMBILICAL HRNA 5 YRS/> REDUCIBLE 07/15/2009 with mesh FAMILY HISTORY Problem Relation Age of Onset Alzheimer's Disease Mother Coronary Artery Disease Father NC Prostate Cancer Father Social History Tobacco Use Smoking status: Every Day Packs/day: 1.00 Years: 40.00 Pack years: 40.00 Types: Cigarettes Smokeless tobacco: Never Vaping Use Vaping Use: Never used Substance Use Topics Alcohol use: Not Currently Comment: 12 beers a week Drug use: No Prior to Admission medications as of 06/07/22 0827 Medication Sig Last Dose Taking levothyroxine (SYNTHROID) 150 mcg tablet Take 1 tablet by mouth once daily. Take on empty stomach. For thyroid Taking Yes atorvastatin (LIPITOR) 80 mg tablet TAKE 1 TABLET BY MOUTH EVERYDAY AT BEDTIME Taking Yes prasugrel (EFFIENT) 10 mg tab Take 1 tablet by mouth once daily. Start with 60 mg loading dose after you stop brilinta, then 10 mg daily Taking Yes metoprolol tartrate, short acting, (LOPRESSOR) 25 mg tablet Take 1 tablet by mouth twice daily. Taking Yes finasteride (PROSCAR) 5 mg tablet TAKE 1 TABLET BY MOUTH EVERY DAY Taking Yes acetaminophen (TYLENOL) 325 mg tablet Take 2 tablets by mouth every 4 hours as needed for pain or fever (specify). Taking Yes albuterol HFA (PROVENTIL HFA, VENTOLIN HFA) 90 mcg/actuation inhaler INHALE 2-4 PUFFS INSTRUCTED EVERY 6 HOURS NEEDED FOR WHEEZING/SHORTNESS OF BREATH. Taking Yes mupirocin (BACTROBAN) 2 % ointment Apply 0.5 inch with cotton swab (Q-tip) to each nostril in the morning and evening for 5 days prior to and including day of surgery. Medication Comments documented by Charles Garduno MD on 10/12/2016 at 0940. ALLERGIES Allergen Reactions Bees Swelling Swelling of throat; pt has been through desensition Objective PHYSICAL EXAM: General: alert and oriented (x3) and healthy appearance. Pertinent negatives noted - not distressed. Skin: normal color, no rash or lesions. HEENT: EOM intact and pupils equal round. Pertinent negatives noted - no carotid bruit. Cardiovascular: regular rate and rhythm, normal S1 and S2, no rub, murmurs, or gallop. Respiratory: normal breath sounds, no wheezes or crackles. No chest wall deformity or tenderness. Abdomen: soft. Pertinent negatives noted - not tender. Extremities: no deformity, no edema or tenderness, no joint swelling or clubbing. Neurological: normal cognition and motor skills. Gait normal. No weakness or sensory deficit. PAIN ASSESSMENT: Pain Pain Level: 3 Pain Location: Shoulder-Right Description: Other: See comment (nagging) Duration Amount of Time: 6 Duration Units: Months Frequency: Continuous VITALS: BP 112/68 Pulse 57 Temp (Src) 98.2 (Temporal) Resp 16 Ht 5' 9 (1.75m) Wt 192 lb (87.1kg) SpO2 94% BMI 28.34 kg/(m^2). Diagnostic tests reviewed for today's visit: Lab Value Units Date High Low HB 14.2 g/dL 05/12/2022 17.0 13.0 HCT 44.0 % 05/12/2022 51.0 39.0 WBC 6.12 k/uL 05/12/2022 11.00 3.70 PLT 176 k/uL 05/12/2022 400 150 NA 139 mmol/L 05/12/2022 144 136 K 4.1 mmol/L 05/12/2022 5.1 3.7 GLUC 98 mg/dL 05/12/2022 99 74 BUN 14 mg/dL 05/12/2022 24 9 CREAT 0.79 mg/dL 05/12/2022 1.22 0.73 PTSEC No results within date range. INR No results within date range. APTT No results within date range. ALT 14 U/L 05/12/2022 54 10 AST 20 U/L 05/12/2022 40 14 TBILI 0.5 mg/dL 05/12/2022 1.3 0.2 TSH 0.344 mIU/L 05/12/2022 4.200 0.270 Lab Value Units Date High Low HCGQT No results within date range. UHCG No results within date range. HCG, BODY* No results within date range. Lab Value Units Date High Low ABORHD No results within date range. ABSCREEN No results within date range. Hemoglobin A1C (%) Date Value 07/17/2019 5.9 Recent Results (from the past 8760 hour(s)) ECG COMPLETE Collection Time: 09/29/21 10:19 PM Result Value Ventricular Rate 65 Atrial Rate 65 P-R Interval 188 QRS Duration 78 QT Interval 386 QTC Calculation (Bazett) 401 Calculated P [place] 66 Calculated R [place] 45 Calculated T [place] 26 Impression NORMAL SINUS RHYTHM NONSPECIFIC T WAVE ABNORMALITY ABNORMAL ECG 2220 no STEMI Confirmed by Yadira SIMS, ISABEL Bryan ([id number]), editor at large STELLA COLEMAN ([id number]) on 09/30/2021 8:10:08 AM Recent Results (from the past 52367 hour(s)) ECHO Collection Time: 09/23/21 3:24 PM Impression CONCLUSIONS: - Technically difficult exam due to body habitus. - Exam indication: Evaluation of ventricular function following ACS - The left ventricle is normal in size. Left ventricular systolic function is normal. EF = 59 5% (2D biplane) Grade I left ventricular diastolic dysfunction. - The visualized aorta is dilated with a maximal dimension of 4.2 cm. - No significant valvular disease. - Exam was compared with the prior echocardiographic exam performed on 05/22/2020, there is no significant change. * * * Final * * * Assessment Smoker Assessment: 1ppd/40+years, denies asthma or COPD Pulmonary nodules Assessment: under surveillance Mixed hyperlipidemia Assessment: c/w statin History of pulmonary embolus (PE) Assessment: hx, 2020, tx with Carinquis BPH (benign prostatic hyperplasia) Assessment: controlled on rx Acquired hypothyroidism Assessment: stable on rx 2V CAD s/p complex PCI (09/23/21) Assessment: s/p stent 09/2021, daily Effient, completed cardiac rehab, following [facility] cardiology, TE to surgeon and table games floor supervisor confirming it's okay to proceed with surgery while still taking Effient. Update, Nursing Staff Development Coordinator states pt can come off AC for upcoming surgery, see TE 06/07/2022, last dose to be 06/18/2022 Essential hypertension, benign Assessment: controlled on rx Last 14 BP Last 14 Encounter BP Readings: Date: BP: 06/07/2022 112/68 05/14/2022 118/70 01/20/2022 128/72 01/08/2022 100/58 12/11/2021 122/68 11/10/2021 120/74 10/30/2021 104/70 10/06/2021 116/70 10/06/2021 121/84 09/29/2021 108/66 09/22/2021 111/76 09/20/2021 97/66 09/16/2021 118/78 05/07/2021 132/86 Allen Activity Status Index: METS: Climb a flight of stairs or walk up a hill (5.50 METs) DASI Score: 5.5 Patient denies any chest pain or undue shortness of breath with the above physical activity. Clinical Frailty Scale: 3. Well, with treated comorbid disease STOP-Bang Score: Snores loudly Has or is being treated for high blood pressure Patient over 50 years old Male patient Denies feeling tired, fatigued, or sleepy during the daytime Has not been observed to stop breathing or choking/gasping during sleep BMI less than or equal to 35 kg/m^2 Does not have a large neck STOP-Bang Score: 4 [id number] Score: Age: 65-74 Sex: male CHF history: No Hypertension history: Yes Stroke/TIA/thromboembolism history: No Vascular disease history: Yes Diabetes history: No [id number] Score: 3 ARISCAT Score: Age: 51-80 Preoperative SpO2: 91-95% Respiratory infection in the last month: No Preoperative anemia: No Surgical incision: peripheral Duration of surgery: <2 hrs Emergency procedure: No ARISCAT Score: 11 ASA Class: 3 ANESTHESIA FINDINGS: Intubation History: No history of difficult intubation Significant Anesthesia Considerations: none Airway History: No history of difficult airway I - PHYSICAL EVALUATION AIRWAY Patient intubated: No. Tracheostomy tube not present Mallampati: II. TM distance: >3 FB. Neck ROM: full ROM without neurological symptoms. Mouth opening: adequate. Short neck: no. Thick neck: no Estes present: no DENTAL Dental findings: teeth intact. Dentures, upper: partial. II - ANESTHESIA PLAN ASA Score: 3 Anesthetic Plan: other Anesthetic plan additional comments: *PACC/TCI - anesthesia choice. Beta Verna Monitoring Plan Post Procedure Analgesic Plan Informed Consent Anesthetic risks, benefits, alternatives, personnel and consent discussed: yes. Patient / Responsible Republican agrees to proceed: yes Patient / Surrogate agrees to blood products: Yes Prepared for Surgery: optimally prepared for surgery, pending [see comment]. labs CONSULTS: Patient does not require consults for optimization at this time Planned Anesthetic: other anesthesia choice The Following Tests/Procedures Have Been Initiated: Orders Placed This Encounter Type and Screen, 30 day Standing Status: Future Number of Occurrences: 1 Standing Expiration Date: 08/07/2022 Order Specific Question: [facility] of Planned Surgery or Procedure: Answer: Sommer Confirm Blood Type Standing Status: Future Number of Occurrences: 1 Standing Expiration Date: 08/07/2022 Order Specific Question: Did Blood Bank direct you to place this order: Answer: No - Presurgical Workflow mupirocin (BACTROBAN) 2 % ointment Sig: Apply 0.5 inch with cotton swab (Q-tip) to each nostril in the morning and evening for 5 days prior to and including day of surgery. Dispense: 22 g Refill: 0 Instructions Given to Patient: Instructions located in the after visit summary. Patient given verbal and written preop instructions and voices comprehension and compliance. SIGNATURE: Angelqiue Sharpe APRN.CNP PATIENT NAME: Lorenzo Reis DATE: June 07, 2022 TIME: 8:18 AM PAGER/CONTACT #: documented in this encounter [facility] 05-14-2022 History of Present illness Narrative Chief Complaint Patient presents with: 6 Month Exam Immunizations: Flu vaccination HPI Lorenzo Reis is a 66 year old male who presents here today for 6 month follow up. Denies any bowel, Gi, or urinary issues. Taking Proscar 5 mg daily. Follow[address] with Dr. Mcgovern, Urologist. Has had URI for the last few days; his grandson was ill. Head congestion, cough, no fever. Lipid: Taking Lipitor 80 mg daily, Effient 10 mg daily, and Lopressor 25 mg 1 pill BID. Follows with Cardio, Dr. Gomez. Denies any chest pains, dizziness, or SOB. Thyroid: Taking Synthroid 150 mcg daily, no missed dosages. Pain: right shoulder; follows with Ortho; planning on shoulder replacement surgery. Past medical history, appointments, medications, allergies reviewed. Previous Medical History PAST MEDICAL HISTORY Diagnosis Date Acute pulmonary embolism (HCC) 06/2020 unknown cause; pt on Eliquis Benign neoplasm of rectum and anal canal History of peptic ulcer disease Pure hypercholesterolemia Snoring Tobacco use Unspecified hypothyroidism Previous Surgical History PAST SURGICAL HISTORY Procedure Laterality Date COLONOSCOPY FLX DX W/COLLJ SPEC WHEN PFRMD 06/16/2009 Colonoscopy COLONOSCOPY FLX DX W/COLLJ SPEC WHEN PFRMD 08/05/2016 Colonoscopy COLONOSCOPY FLX DX W/COLLJ SPEC WHEN PFRMD 02/15/2018 multiple adenomatous polyps, repeat in 3 years COLONOSCOPY FLX DX W/COLLJ SPEC WHEN PFRMD 12/23/2020 COLSC FLX W/RMVL OF TUMOR POLYP LESION SNARE TQ 10/21/2006 Large polyp at 50cm, 3 small sessile polyps in low rectosigmoid COLSC FLX W/RMVL OF TUMOR POLYP LESION SNARE TQ 06/25/2011 polyp in rectum DIAGNOSIS/HISTORY left 5th finger, laceration repair HERNIA REPAIR HX PAST SURGICAL HISTORY OF Right 1979 right shoulder Dislocated collar bone, ORIF Dr. Kilgore PAST SURGICAL HISTORY OF N/A 08/20/2020 Prostate biopsy RPR PRIMARY OPEN/PRQ RUPTURED ACHILLES W/GRAFT Right 2018 RPR UMBILICAL HRNA 5 YRS/> REDUCIBLE 07/15/2009 with mesh Family History FAMILY HISTORY Problem Relation Age of Onset Alzheimer's Disease Mother Coronary Artery Disease Father [place] Prostate Cancer Father Patient Allergies ALLERGIES Allergen Reactions Bees Swelling Swelling of throat; pt has been through desensition Current Medications Current Outpatient Medications on File Prior to Visit Medication Sig atorvastatin (LIPITOR) 80 mg tablet TAKE 1 TABLET BY MOUTH EVERYDAY AT BEDTIME aspirin 81 mg chewable tablet Take 1 tablet by mouth twice daily. levothyroxine (SYNTHROID) 150 mcg tablet Take 1 tablet by mouth once daily. Take on empty stomach. For thyroid prasugrel (EFFIENT) 10 mg tab Take 1 tablet by mouth once daily. Start with 60 mg loading dose after you stop brilinta, then 10 mg daily metoprolol tartrate, short acting, (LOPRESSOR) 25 mg tablet Take 1 tablet by mouth twice daily. nicotine (NICODERM) 7 mg/24 hr Apply 1 Patch as directed every 24 hours. finasteride (PROSCAR) 5 mg tablet TAKE 1 TABLET BY MOUTH EVERY DAY acetaminophen (TYLENOL) 325 mg tablet Take 2 tablets by mouth every 4 hours as needed for pain or fever (specify). albuterol HFA (PROVENTIL HFA, VENTOLIN HFA) 90 mcg/actuation inhaler INHALE 2-4 PUFFS INSTRUCTED EVERY 6 HOURS NEEDED FOR WHEEZING/SHORTNESS OF BREATH. No current facility-administered medications on file prior to visit. Social History Social History Tobacco Use Smoking status: Every Day Packs/day: 1.00 Years: 40.00 Pack years: 40.00 Types: Cigarettes Smokeless tobacco: Never Vaping Use Vaping Use: Never used Substance Use Topics Alcohol use: Yes Alcohol/week: 14.0 standard drinks Types: 6 Cans of Beer (12oz), 8 Cans of beer per week Comment: 8 beers per week Drug use: No EXAM: BP 118/70 Pulse 74 Resp 16 Wt 88.5 kg (195 lb) BMI 28.80 kg/m General Appearance: Well appearing, alert, in no acute distress, well-hydrated, well nourished.. Lungs: Positive findings: rhonchi Cough. Heart: RRR without murmur, gallop, or rubs. No ectopy. Health Maintenance List ABDOMINAL AORTIC ANEURYSM SCREENING Never done PNEUMOCOCCAL: 65+(2 - PCV) due on 10/16/2014 SHINGRIX VACCINE(2 of 2) due on 08/01/2019 COVID-19 VACCINE(3 - Booster for Moderna series) due on 05/19/2021 DEPRESSION ASSESSMENT Never done LUNG CANCER SCREENING due on 09/29/2021 INFLUENZA(1) due on 03/18/2022 LDL CHOLESTEROL due on 11/03/2022 ANNUAL PCP TEAM CHRONIC DISEASE VISIT due on 11/10/2022 COLORECTAL CANCER SCREENING due on 12/24/2023 DIABETES SCREEN due on 11/03/2024 PROSTATE CANCER SCREENING DISCUSSION due on 02/25/2026 LIPID SCREEN due on 11/03/2026 DTAP,TDAP,TD(4 - Td or Tdap) due on 03/28/2030 ADVANCE DIRECTIVE DISCUSSION Completed HEPATITIS C SCREENING Completed Data reviewed Appointment on 05/12/2022 Component Date Value TSH 05/12/2022 0.344 Cholesterol, Total 05/12/2022 129 Triglyceride 05/12/2022 89 HDL Cholesterol 05/12/2022 38 (A) Non HDL Cholesterol 05/12/2022 91 Fasting Time 05/12/2022 10 VLDL Cholesterol 05/12/2022 18 TC:HDL Ratio 05/12/2022 3.39 LDL Cholesterol 05/12/2022 73 LDL:HDL Ratio 05/12/2022 1.92 Protein, Total 05/12/2022 6.4 Albumin 05/12/2022 4.2 Calcium, Total 05/12/2022 8.6 Bilirubin, Total 05/12/2022 0.5 Alkaline Phosphatase 05/12/2022 81 AST 05/12/2022 20 ALT 05/12/2022 14 Glucose 05/12/2022 98 BUN 05/12/2022 14 Creatinine 05/12/2022 0.79 Sodium 05/12/2022 139 Potassium 05/12/2022 4.1 Chloride 05/12/2022 105 CO2 05/12/2022 27 Anion Gap 05/12/2022 7 (A) Estimated Glomerular Emanuel* 05/12/2022 98 WBC 05/12/2022 6.12 RBC 05/12/2022 4.65 Hemoglobin 05/12/2022 14.2 Hematocrit 05/12/2022 44.0 MCV 05/12/2022 94.6 MCH 05/12/2022 30.5 MCHC 05/12/2022 32.3 RDW-CV 05/12/2022 13.2 Platelet Count 05/12/2022 176 MPV 05/12/2022 9.9 Absolute nRBC 05/12/2022 <0.01 ASSESSMENT/PLAN: 1. 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 - ICD9: 414.01, ICD10: I25.10 (primary diagnosis) Stable Continue current medications. Follow with Cardiology - COMP METABOLIC PANEL - LIPID PANEL BASIC 2. Acquired hypothyroidism - ICD9: 244.9, ICD10: E03.9 - Instructed patient on importance of taking on an empty stomach either first thing in the morning or at bedtime. - continue current dose of Synthroid 0.150 mg - LEVOTHYROXINE 150 MCG TABLET - TSH BLD 3. Need for influenza vaccination - ICD9: V04.81, ICD10: Z23 - INFLUENZA SEASONAL QUADRIVALENT HIGH DOSE AGE 65+ 4. Mixed hyperlipidemia - ICD9: 272.2, ICD10: E78.2 - good control - Continue current medication. 5. Smoker - ICD9: 305.1, ICD10: F17.200 - Cessation encouraged. - Physiologic and physical aspects of tobacco addiction as well as strategies for quitting were discussed. - Counseling was given focusing on the harmful effects of this addiction especially given the patient's medical condition(s) which will be worsened because of the chemicals in tobacco. 6. Viral URI - ICD9: 465.9, ICD10: J06.9 - Discussed viral etiology and rationale for treatment. - Symptomatic treatment with prn analgesia - Supportive care with fluids and rest; call if not improving Follow up in 6 months I agree with the Chief Complaint, ROS, and Past Histories independently gathered by the clinical family support coordinator and the remaining scribed note accurately describes my personal service to the patient. Medical Decision Making: Problems: Low: Acute, uncomplicated illness or injury Moderate: 2+ stable chronic illnesses Data: Unique test result(s) reviewed: 3+ Unique test(s) ordered: 3+ Risk: Moderate: Drug management Medical Decision Making Level: 4 - Moderate Mark Ramirez MD The documentation for this note was completed by Cynthia Chi Ma acting as scribe for Mark Ramirez MD. May 14, 2022 9:02 AM. Cynthia Chi Ma documented in this encounter [facility] 05-03-2022 Miscellaneous Notes Pharmacy electronically requests the following refill(s) Requested Prescriptions Pending Prescriptions Disp Refills atorvastatin (LIPITOR) 80 mg tablet [Pharmacy Med Name: ATORVASTATIN 80 MG TABLET] 90 tablet 3 Sig: TAKE 1 TABLET BY MOUTH EVERYDAY AT BEDTIME Carrol Blue documented in this encounter [facility] 04-20-2022 Miscellaneous Notes Patient's made aware. She wants to know then exactly one year after his stent is he safe to stop his effient. He is supposed to schedule shoulder surgery after that time. Looks like patient is on effient. Stent was placed in September. Please advise. Patient's called in to ask how long before a dental procedure does he need to stop taking his blood thinner? And if it's even necessary to stop? , Krys, would like a call back at her number, they are not active on MyChart. Please advise. Renuka Burt documented in this encounter [facility] 04-06-2022 Miscellaneous Notes Patients notified and verbalized understanding Xiomy Delgadillo Cma He should check with his Nursing Staff Development Coordinator about when to stop the prasugrel Mark Ramirez MD Pt was started on prasugrel 10mg daily. Pt's spouse Krys calling, states pt was started on med in September & was told he would be on it for 6 mths. Pt will be calling to schedule a dental appt soon & is asking if he should d/c the blood thinner since it has been 6 mths? Please advise. Brenna Vargas LPN documented in this encounter [facility] 04-02-2022 History of Present illness Narrative Images from the original note were not included. ORTHOPAEDIC SHOULDER & ELBOW SERVICE HISTORY & PHYSICAL EXAM REFERRING PROVIDER: Florian Chavez [address] [facility] [address] CHIEF COMPLAINT: Right shoulder pain and weakness PAIN EVALUATION 04/02/2022 0743 Pain Level: 4 Pain Location: Shoulder-Right Description: Sharp;Shooting Duration Units: Months Frequency: Continuous Intervention/Comfort measure: Medication tylenol Comments: cortisone injection, last one: 02/18/22 Lorenzo Reis is a 66 year old man who presents today for evaluation of his right shoulder. He has been referred by my partner Dr. Chavez for persistent painful weakness of the shoulder with findings of a complete and retracted tear of the supraspinatus tendon by MRI. He has pain at rest which is growing more bothersome and difficulty with sleep as well due to pain in shoulder. His pain and feelings of weakness with attempting to lift anything overhead. He has painful use of the arm with rotation just for daily tasks as well. He has been not on relief with conservative treatment including activity modification and medical management. PAST MEDICAL HISTORY: PAST MEDICAL HISTORY Diagnosis Date Acute pulmonary embolism (HCC) 06/2020 unknown cause; pt on Eliquis Benign neoplasm of rectum and anal canal History of peptic ulcer disease Pure hypercholesterolemia Snoring Tobacco use Unspecified hypothyroidism PAST SURGICAL HISTORY: PAST SURGICAL HISTORY Procedure Laterality Date COLONOSCOPY FLX DX W/COLLJ SPEC WHEN PFRMD 06/16/2009 Colonoscopy COLONOSCOPY FLX DX W/COLLJ SPEC WHEN PFRMD 08/05/2016 Colonoscopy COLONOSCOPY FLX DX W/COLLJ SPEC WHEN PFRMD 02/15/2018 multiple adenomatous polyps, repeat in 3 years COLONOSCOPY FLX DX W/COLLJ SPEC WHEN PFRMD 12/23/2020 COLSC FLX W/RMVL OF TUMOR POLYP LESION SNARE TQ 10/21/2006 Large polyp at 50cm, 3 small sessile polyps in low rectosigmoid COLSC FLX W/RMVL OF TUMOR POLYP LESION SNARE TQ 06/25/2011 polyp in rectum DIAGNOSIS/HISTORY left 5th finger, laceration repair HERNIA REPAIR HX PAST SURGICAL HISTORY OF Right 1979 right shoulder Dislocated collar bone, ORIF Dr. Kilgore PAST SURGICAL HISTORY OF N/A 08/20/2020 Prostate biopsy RPR PRIMARY OPEN/PRQ RUPTURED ACHILLES W/GRAFT Right 2018 RPR UMBILICAL HRNA 5 YRS/> REDUCIBLE 07/15/2009 with mesh SOCIAL HISTORY: Social History Tobacco Use Smoking status: Every Day Packs/day: 1.00 Years: 40.00 Pack years: 40.00 Types: Cigarettes Smokeless tobacco: Never Vaping Use Vaping Use: Never used Substance Use Topics Alcohol use: Yes Alcohol/week: 14.0 standard drinks Types: 6 Cans of Beer (12oz), 8 Cans of beer per week Comment: 8 beers per week Drug use: No ALLERGIES: ALLERGIES Allergen Reactions Bees Swelling Swelling of throat; pt has been through desensition MEDICATIONS: Current Outpatient Medications on File Prior to Visit Medication Sig aspirin 81 mg chewable tablet Take 1 tablet by mouth twice daily. levothyroxine (SYNTHROID) 150 mcg tablet Take 1 tablet by mouth once daily. Take on empty stomach. For thyroid prasugrel (EFFIENT) 10 mg tab Take 1 tablet by mouth once daily. Start with 60 mg loading dose after you stop brilinta, then 10 mg daily atorvastatin (LIPITOR) 80 mg tablet Take 1 tablet by mouth daily at bedtime. metoprolol tartrate, short acting, (LOPRESSOR) 25 mg tablet Take 1 tablet by mouth twice daily. nicotine (NICODERM) 7 mg/24 hr Apply 1 Patch as directed every 24 hours. finasteride (PROSCAR) 5 mg tablet TAKE 1 TABLET BY MOUTH EVERY DAY acetaminophen (TYLENOL) 325 mg tablet Take 2 tablets by mouth every 4 hours as needed for pain or fever (specify). albuterol HFA (PROVENTIL HFA, VENTOLIN HFA) 90 mcg/actuation inhaler INHALE 2-4 PUFFS INSTRUCTED EVERY 6 HOURS NEEDED FOR WHEEZING/SHORTNESS OF BREATH. No current facility-administered medications on file prior to visit. PHYSICAL EXAMINATION: Ht 175.3 cm (5' 9) Wt 91.6 kg (202 lb) BMI 29.83 kg/m EXAM: Shoulder Musculoskeletal Exam Inspection Right Ecchymosis: none Peripheral edema: none Atrophy: none Symmetry: symmetric Masses: none Palpation Right Crepitus: no crepitus Increased warmth: none Tenderness: present Anterior shoulder: moderate Posterior shoulder: mild Clavicle: none AC joint: mild Sternoclavicular joint: none Rotator cuff: moderate Greater tuberosity: none Trapezius: mild Medial scapula: none Superior pole of scapula: none Inferior pole of scapula: none Bicipital groove: mild Proximal biceps: moderate Range of Motion Right Active ROM: abnormal and pain. Passive ROM: abnormal and pain. Active forward elevation: 120. Passive forward elevation: 120. Shoulder active abduction: 90. Passive abduction: 90. Active external rotation at side: 60. Passive external rotation at side: 60. Active external rotation in abduction: 80. Passive external rotation in abduction: 80. Active internal rotation in abduction: 60. Passive internal rotation in abduction: 60. Internal rotation: T12. Strength Right External rotation: 4+/5. Internal rotation: 5/5. Abduction: 4+/5. Neurovascular Right Right shoulder nerve sensation is normal. Scapula Right Right shoulder scapula is normal. Special Tests Right Rotator Cuff Signs Neer's test: positive Superior escape: negative Sims test: positive External rotation lag sign: negative Supraspinatus: positive Belly press test: negative Painful arc test: positive Lift-off sign: negative Drop arm test: negative Biceps/henny Signs Mobile's test: positive Clicking/popping: negative Speed's test: positive AC Joint Signs Active horizontal adduction pain: negative Single finger test: negative General Constitutional: appears stated age Labored breathing: no Psychiatric: normal mood and affect and no acute distress Neurological: alert and oriented x3 Skin: intact IMAGING: Today reviewed the MRI of his right shoulder showing a large full-thickness retracted supraspinatus tendon tear. There is loss of tendon tissue and blunting of the tendon edge indicating likely a chronic component to his tearing. MEDICAL DECISION MAKING: (I25.865C) Traumatic complete tear of right rotator cuff, subsequent encounter (primary encounter diagnosis) Comment: Lorenzo Reis presents today with painful weakness of his right shoulder with findings of a large retracted tear of his supraspinatus tendon and part of infraspinatus as well by MRI. After thorough review of history, examination findings, and imaging, we discussed surgical intervention today which would be reverse total shoulder arthroplasty. I described the procedure in detail as well as the expected healing time of 3-6 months and physical therapy regimen following surgery, likely for much of this time. Informed consent was discussed in detail and signed in the office today. Significant risks of surgery including those of general anesthesia, and those from surgery including infection, nerve injury, bleeding, procedure failure and possible need for repeat procedure were all discussed at the time of consent. No guarantees as to the outcome of surgery were given or implied. Surgery will be scheduled for the next available date. Medical decision making for today's visit was conducted with review of the following data sources: History, exam, imaging REFERRING PHYSICIAN: The patient was referred to me for consultation by the following physician. This consultation note will be sent to the following physician by either mail or electronic medical record. Florian Chavez [address] [facility] [address] Yang Altamirano MD Shoulder & Elbow Surgeon Department of Orthopaedic Surgery [facility] documented in this encounter [facility] 02-18-2022 History of Present illness Narrative Associated Order(s): Large Joint Arthro/Inj: R subacromial bursa Post-Procedure Diagnose(s): Traumatic complete tear of right rotator cuff, subsequent encounter; Other secondary osteoarthritis of right shoulder Florian Chavez MD Department of Orthopaedics Orthopaedics [address] [facility] [address] Dept: [phone] Dept February 18, 2022 CHIEF COMPLAINT: Established Patient and Injections of the Right Shoulder HPI Patient here today for 2 weeks post visit right rotator cuff tear. He would like an injection today. 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 Altamirano for further discussions about potential surgery in the future. Mr. Lorenzo Reis was advised as to contrast therapies and/or to take analgesics/anti-inflammatories as needed and all contraindications were reviewed. OBJECTIVE: Mr. Lorenzo Reis is a pleasant 66 year old in no apparent distress. Gen:There were no vitals taken for this visit. nl development, non obese, no deformities ENT: Normocephalic, normal hearing, moist mucosa CV: Pulses:Radial= 2+ and symmetric, capillary refill < 2 secs, no peripheral edema/varicosities Skin: no rash, bruising or lesions. Good turgor. Psych: cooperative and appropriate, alert and oriented x 3, good mood and affect. Musculoskeletal: Shoulder exam remains with 110 or 20 degrees of forward elevation, 50 of external and low lumbar spine. Rotator cuff weakness as previously noted. Large Joint Arthro/Inj: R subacromial bursa Informed Consent Consent Obtained: Verbal [place] Protocol A moment to CARE was completed. SIGN IN Sign in communication not applicable due to emergent procedure. Personnel directly involved with the procedure wore the appropriate PPE. Special Equipment: N/A Patient/Surrogate Stated/Verified: Patient name, Date of , Relevant allergies and Intended procedure TIME OUT Intended patient and procedure match the source document(s). Consent documented and matches the intended procedure. Relevant labs, photos, and/or imaging studies have been reviewed. Correct side/site marked and visible. Medications required for procedure verified. No fire risk assessment and interventions applicable. No implant(s) inserted. 02/18/2022 11:52 AM The procedure site was prepped in the usual sterile fashion. Site: R subacromial bursa Medications: 6 mg betamethasone acetate-betamethasone sodium phosphate 6 mg/mL Anesthetics: 4 mL lidocaine (PF) 10 mg/mL (1 %) Outcome: Tolerated well, no immediate complications Post-injection instructions were reviewed with the patient and the patient voiced understanding of these instructions. SIGN OUT All instruments, equipment, possible retained foreign bodies accounted for. Post-procedure follow-up management communicated and Plan of Care Visit completed when applicable Imaging: Deferred today; previous MRI reviewed. Supporting Subjective Information Below: Past Surgical History: PAST SURGICAL HISTORY Procedure Laterality Date COLONOSCOPY FLX DX W/COLLJ SPEC WHEN PFRMD 06/16/2009 Colonoscopy COLONOSCOPY FLX DX W/COLLJ SPEC WHEN PFRMD 08/05/2016 Colonoscopy COLONOSCOPY FLX DX W/COLLJ SPEC WHEN PFRMD 02/15/2018 multiple adenomatous polyps, repeat in 3 years COLONOSCOPY FLX DX W/COLLJ SPEC WHEN PFRMD 12/23/2020 COLSC FLX W/RMVL OF TUMOR POLYP LESION SNARE TQ 10/21/2006 Large polyp at 50cm, 3 small sessile polyps in low rectosigmoid COLSC FLX W/RMVL OF TUMOR POLYP LESION SNARE TQ 06/25/2011 polyp in rectum DIAGNOSIS/HISTORY left 5th finger, laceration repair HERNIA REPAIR HX PAST SURGICAL HISTORY OF Right 1979 right shoulder Dislocated collar bone, ORIF Dr. Kilgore PAST SURGICAL HISTORY OF N/A 08/20/2020 Prostate biopsy RPR PRIMARY OPEN/PRQ RUPTURED ACHILLES W/GRAFT Right 2018 RPR UMBILICAL HRNA 5 YRS/> REDUCIBLE 07/15/2009 with mesh Medications: Current Outpatient Medications Medication Sig aspirin 81 mg chewable tablet Take 1 tablet by mouth twice daily. levothyroxine (SYNTHROID) 150 mcg tablet Take 1 tablet by mouth once daily. Take on empty stomach. For thyroid prasugrel (EFFIENT) 10 mg tab Take 1 tablet by mouth once daily. Start with 60 mg loading dose after you stop brilinta, then 10 mg daily atorvastatin (LIPITOR) 80 mg tablet Take 1 tablet by mouth daily at bedtime. metoprolol tartrate, short acting, (LOPRESSOR) 25 mg tablet Take 1 tablet by mouth twice daily. finasteride (PROSCAR) 5 mg tablet TAKE 1 TABLET BY MOUTH EVERY DAY acetaminophen (TYLENOL) 325 mg tablet Take 2 tablets by mouth every 4 hours as needed for pain or fever (specify). albuterol HFA (PROVENTIL HFA, VENTOLIN HFA) 90 mcg/actuation inhaler INHALE 2-4 PUFFS INSTRUCTED EVERY 6 HOURS NEEDED FOR WHEEZING/SHORTNESS OF BREATH. nicotine (NICODERM) 7 mg/24 hr Apply 1 Patch as directed every 24 hours. (Patient not taking: Reported on 01/07/2022 ) No current facility-administered medications for this visit. Allergies: Bees ROS: General (negative for fatigue, malaise, weight loss/gain) HEENT (negative for headache, earache, recent vision changes, sinus pain, sore throat) Respiratory (no recent shortness of breath, hemoptysis) CV (negative for chest tightness, palpitations) Musculoskeletal (see HPI) Psych (no depression, anxiety) Florian Chavez MD documented in this encounter [facility] 02-04-2022 History of Present illness Narrative Florian Chavez MD Department of Orthopaedics Orthopaedics [facility] [address] [facility] [address] Dept: [phone] Dept February 04, 2022 CHIEF COMPLAINT: Follow Up of the Right Shoulder and Results - Mri HPI Patient states he is taking Tylenol as needed for the pain and does help take the edge off when he takes it. Here for MRI results today. 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 I will touch base with one of my shoulder colleagues, but basically we have determined that he is doing well enough at this time to not warrant any specific surgery as I do not feel his cuff is a repairable situation. I think if he should need any surgery in the future of reverse shoulder would be likely most appropriate. He is also in a timeframe here where surgery is not advisable or ideal secondary to his still recent stenting. In the meantime, we will try another cortisone injection in a few months and again I will talk with Dr. Altamirano to be sure he agrees with the plan and is on the same page. Mr. Lorenzo Reis was advised as to contrast therapies and/or to take analgesics/anti-inflammatories as needed and all contraindications were reviewed. OBJECTIVE: Mr. Lorenzo Reis is a pleasant 66 year old in no apparent distress. Gen:There were no vitals taken for this visit. nl development, non obese, no deformities ENT: Normocephalic, normal hearing, moist mucosa CV: Pulses:Radial= 2+ and symmetric, capillary refill < 2 secs, no peripheral edema/varicosities Skin: no rash, bruising or lesions. Good turgor. Psych: cooperative and appropriate, alert and oriented x 3, good mood and affect. Musculoskeletal: Stable exam from prior visit. Imaging: IMPRESSION: Complete full-thickness supraspinatus and infraspinatus tendon tears. Long head biceps tendinosis and tenosynovitis. Acromioclavicular and glenohumeral degenerative change. Ticketing Clerk: MAT Transcribe Date/Time: Feb 02 2022 8:45A Dictated by : MICHOACANO MAHAN MD This examination was interpreted and the report reviewed and electronically signed by: MICHOACANO MAHAN MD on Feb 02 2022 8:48AM EST Results-Findings * * *Final Report* * * DATE OF EXAM: Feb 02 2022 8:20AM [facility] 0240 - MRI SHOULDER WO IVCON RT / PROCEDURE REASON: multiple diagnoses * * * * Physician Interpretation * * * * EXAMINATION: MRI SHOULDER WO IVCON RT HISTORY: Acute pain of right shoulder Traumatic complete tear of right rotator cuff, initial encounter Acute pain of right shoulder Traumatic complete tear of right rotator cuff, initial encounter TECHNIQUE: Routine non-contrast MRI of the shoulder. MQ: MRS_1A COMPARISON: None RESULT: TENDONS: Rotator cuff tendons: -Supraspinatus: Full thickness tear involving the entire width of the tendon -Infraspinatus: Full thickness tear involving the entire width of the tendon -Subscapularis: Intact with moderate tendinosis -Teres Minor: Intact tendon Biceps (Long head) Tendon: Marked tendinosis , with normal course. Tenosynovitis also present. MUSCLES: Rotator cuff muscles: -Supraspinatus: Mild atrophy and mild fatty changes. -Infraspinatus: Moderate atrophy and moderate fatty changes. -Subscapularis: Preserved bulk and no fatty changes. -Teres Minor: Preserved bulk and no fatty changes. Other muscles: Preserved signal and bulk in the deltoid. JOINTS: Glenohumeral Joint: -Labrum: Degeneration and fraying without discrete tear -Cartilage: Mild to moderate cartilage loss/fissuring -Joint Fluid: Small effusion . Mild synovitis. Acromioclavicular Joint: Marked hypertrophic degenerative changes BONES AND MARROW: No evidence of fracture or suspicious bone marrow replacing process OTHER: Subdeltoid/Subacromial Bursa: Mild bursal distention Other: No other significant findings. Localizer images: Unremarkable. Supporting Subjective Information Below: Past Surgical History: PAST SURGICAL HISTORY Procedure Laterality Date COLONOSCOPY FLX DX W/COLLJ SPEC WHEN PFRMD 06/16/2009 Colonoscopy COLONOSCOPY FLX DX W/COLLJ SPEC WHEN PFRMD 08/05/2016 Colonoscopy COLONOSCOPY FLX DX W/COLLJ SPEC WHEN PFRMD 02/15/2018 multiple adenomatous polyps, repeat in 3 years COLONOSCOPY FLX DX W/COLLJ SPEC WHEN PFRMD 12/23/2020 COLSC FLX W/RMVL OF TUMOR POLYP LESION SNARE TQ 10/21/2006 Large polyp at 50cm, 3 small sessile polyps in low rectosigmoid COLSC FLX W/RMVL OF TUMOR POLYP LESION SNARE TQ 06/25/2011 polyp in rectum DIAGNOSIS/HISTORY left 5th finger, laceration repair HERNIA REPAIR HX PAST SURGICAL HISTORY OF Right 1979 right shoulder Dislocated collar bone, ORIF Dr. Kilgore PAST SURGICAL HISTORY OF N/A 08/20/2020 Prostate biopsy RPR PRIMARY OPEN/PRQ RUPTURED ACHILLES W/GRAFT Right 2018 RPR UMBILICAL HRNA 5 YRS/> REDUCIBLE 07/15/2009 with mesh Medications: Current Outpatient Medications Medication Sig aspirin 81 mg chewable tablet Take 1 tablet by mouth twice daily. levothyroxine (SYNTHROID) 150 mcg tablet Take 1 tablet by mouth once daily. Take on empty stomach. For thyroid prasugrel (EFFIENT) 10 mg tab Take 1 tablet by mouth once daily. Start with 60 mg loading dose after you stop brilinta, then 10 mg daily atorvastatin (LIPITOR) 80 mg tablet Take 1 tablet by mouth daily at bedtime. metoprolol tartrate, short acting, (LOPRESSOR) 25 mg tablet Take 1 tablet by mouth twice daily. finasteride (PROSCAR) 5 mg tablet TAKE 1 TABLET BY MOUTH EVERY DAY acetaminophen (TYLENOL) 325 mg tablet Take 2 tablets by mouth every 4 hours as needed for pain or fever (specify). albuterol HFA (PROVENTIL HFA, VENTOLIN HFA) 90 mcg/actuation inhaler INHALE 2-4 PUFFS INSTRUCTED EVERY 6 HOURS NEEDED FOR WHEEZING/SHORTNESS OF BREATH. nicotine (NICODERM) 7 mg/24 hr Apply 1 Patch as directed every 24 hours. (Patient not taking: Reported on 01/07/2022 ) No current facility-administered medications for this visit. Allergies: Bees ROS: General (negative for fatigue, malaise, weight loss/gain) HEENT (negative for headache, earache, recent vision changes, sinus pain, sore throat) Respiratory (no recent shortness of breath, hemoptysis) CV (negative for chest tightness, palpitations) Musculoskeletal (see HPI) Psych (no depression, anxiety) Florian Chavez MD documented in this encounter [facility] 01-15-2022 History of Present illness Narrative Images from the original note were not included. Cardiac Rehabilitation Hospital Based Program Supervising Physician: Ervin Moreau Diagnosis: PCI w/stent Phase: 2 Monitor: Yes Session Number: 31 Today's exercise session was comprised of a warm-up, aerobic conditioning phase, aerobic cool-down, and free weight resistance training. Patient tolerated prescribed exercise workload. Tele SB-ST without ectopic beats. Vitals WNL for patient. No chest discomfort. No medication changes. This is a hospital based cardiac rehab program. Patient working towards exercise goals by increasing exercise intensity. Patient working towards education goal by attending education sessions in cardiac rehabilitation. Patient has verbalized understanding of Portion Control education topic and the relation to disease managment. Patient's Daily Exercise Log will be scanned into [employer] once it is completed. These can be viewed by going under the Scanned Documents tab and looking for documents labeled Cardiac Rehabilitation. Daily Exercise Logs contain exercise data such as, but not limited to modality, intensity, duration and frequency of exercise, along with vital signs pre-, during, and post-exercise. Refer to patient's paper medical record for ECG rhythm strips, physician prescribed Individualized Treatment Plan, and education sessions covered. Emy Hairston Au Pair documented in this encounter [facility] 01-13-2022 History of Present illness Narrative Images from the original note were not included. Cardiac Rehabilitation Hospital Based Program Supervising Physician: Ervin Moreau Diagnosis: PCI w/stent Phase: 2 Monitor: Yes Session Number: 30 Today's exercise session was comprised of a warm-up, aerobic conditioning phase, aerobic cool-down, and free weight resistance training. Patient tolerated prescribed exercise workload. Tele SB-ST without ectopic beats. Vitals WNL for patient. No chest discomfort. No medication changes. This is a hospital based cardiac rehab program. Patient working towards exercise goals by sustaining exercise intensity and duration. Patient working towards education goal by attending education sessions in cardiac rehabilitation. Patient has verbalized understanding of reading food labels education topic and the relation to disease managment. Patient's Daily Exercise Log will be scanned into [employer] once it is completed. These can be viewed by going under the Scanned Documents tab and looking for documents labeled Cardiac Rehabilitation. Daily Exercise Logs contain exercise data such as, but not limited to modality, intensity, duration and frequency of exercise, along with vital signs pre-, during, and post-exercise. Refer to patient's paper medical record for ECG rhythm strips, physician prescribed Individualized Treatment Plan, and education sessions covered. Karri Bearden Au Pair documented in this encounter [facility] 01-11-2022 History of Present illness Narrative Images from the original note were not included. Cardiac Rehabilitation [facility] Program Supervising Physician: Ervin Moreau Diagnosis: PCI w/stent Phase: 2 Monitor: Yes Session Number: 29 Today's exercise session was comprised of a warm-up, aerobic conditioning phase, aerobic cool-down, and free weight resistance training. Patient tolerated prescribed exercise workload. Tele SB-ST without ectopic beats. Vitals WNL for patient. No chest discomfort. No medication changes. This is a hospital based cardiac rehab program. Patient working towards exercise goals by sustaining exercise intensity and duration. Patient working towards education goal by attending education sessions in cardiac rehabilitation. Patient has verbalized understanding of Mediterranean Diet education topic and the relation to disease managment. Patient's Daily Exercise Log will be scanned into [employer] once it is completed. These can be viewed by going under the Scanned Documents tab and looking for documents labeled Cardiac Rehabilitation. Daily Exercise Logs contain exercise data such as, but not limited to modality, intensity, duration and frequency of exercise, along with vital signs pre-, during, and post-exercise. Refer to patient's paper medical record for ECG rhythm strips, physician prescribed Individualized Treatment Plan, and education sessions covered. Emy Hairston Au Pair documented in this encounter [facility] 01-07-2022 History of Present illness Narrative Associated Order(s): Large Joint Arthro/Inj: R subacromial bursa Florian Chavez MD Department of Orthopaedics Orthopaedics [address] [facility] [address] Dept: [phone] Dept January 07, 2022 CHIEF COMPLAINT: New and Pain of the Right Shoulder HPI Patient here today with complaints of right shoulder pain x 2 months after a fall. He reports he was seen 10/2020 and received a cortisone injection with great relief. He would like to have cortisone injection again today. ASSESSMENT: M25.511 Acute pain of right shoulder (primary encounter diagnosis) S46.011A Traumatic complete tear of right rotator cuff, initial encounter PLAN: He would like to try a repeat cortisone ejections today, yet in addition I would like to get an MRI as his exam is certainly changed from prior visits and with the recent fall I have a concern about his rotator cuff integrity. Mr. Lorenzo Reis was advised as to contrast therapies and/or to take analgesics/anti-inflammatories as needed and all contraindications were reviewed. OBJECTIVE: Mr. Lorenzo Reis is a pleasant 66 year old in no apparent distress. Gen:There were no vitals taken for this visit. nl development, non obese, no deformities ENT: Normocephalic, normal hearing, moist mucosa CV: Pulses:Radial= 2+ and symmetric, capillary refill < 2 secs, no peripheral edema/varicosities Skin: no rash, bruising or lesions. Good turgor. Psych: cooperative and appropriate, alert and oriented x 3, good mood and affect. Musculoskeletal: Supple range of motion of the cervical spine without pain. Spurling signs are negative. No atrophy of the deltoid and shoulder musculature. Right shoulder is nontender to palpation over the SC joint, clavicle and AC joint. No tenderness to palpation over the posterior shoulder, positive tenderness palpation over the anterior lateral corner of the shoulder and greater tuberosity. Mild tenderness at the bicipital groove and coracoid. Active range of motion is quite limited with only 110 degrees of forward elevation, 50 degrees external rotation, and internal rotation to the low lumbar spine. Passive range of motion is 170, 60, upper lumbar spine, respectively. No laxity with anterior and posterior stress. Positive Neer and Sims impingement signs. 3/5 strength with supraspinatus, 4+/5 infraspinatus and subscapularis. Sensation is intact in the axillary, radial, median and ulnar nerve distribution Large Joint Arthro/Inj: R subacromial bursa Informed Consent Consent Obtained: Verbal [place] Protocol A moment to CARE was completed. SIGN IN Sign in communication not applicable due to emergent procedure. Personnel directly involved with the procedure wore the appropriate PPE. Special Equipment: N/A Patient/Surrogate Stated/Verified: Patient name, Date of , Relevant allergies and Intended procedure TIME OUT Intended patient and procedure match the source document(s). Consent documented and matches the intended procedure. Relevant labs, photos, and/or imaging studies have been reviewed. Correct side/site marked and visible. Medications required for procedure verified. No fire risk assessment and interventions applicable. No implant(s) inserted. 01/07/2022 8:42 AM The procedure site was prepped in the usual sterile fashion. Site: R subacromial bursa Medications: 6 mg betamethasone acetate-betamethasone sodium phosphate 6 mg/mL Anesthetics: 4 mL lidocaine (PF) 10 mg/mL (1 %) Outcome: Tolerated well, no immediate complications Post-injection instructions were reviewed with the patient and the patient voiced understanding of these instructions. SIGN OUT All instruments, equipment, possible retained foreign bodies accounted for. Post-procedure follow-up management communicated and Plan of Care Visit completed when applicable Imagin views of the right shoulder from an outside facility show his prior distal clavicle healed fracture with some AC joint irregularity. Some very minor glenohumeral arthritic changes, maintained subacromial distance. Supporting Subjective Information Below: Past Surgical History: PAST SURGICAL HISTORY Procedure Laterality Date COLONOSCOPY FLX DX W/COLLJ SPEC WHEN PFRMD 06/16/2009 Colonoscopy COLONOSCOPY FLX DX W/COLLJ SPEC WHEN PFRMD 08/05/2016 Colonoscopy COLONOSCOPY FLX DX W/COLLJ SPEC WHEN PFRMD 02/15/2018 multiple adenomatous polyps, repeat in 3 years COLONOSCOPY FLX DX W/COLLJ SPEC WHEN PFRMD 12/23/2020 COLSC FLX W/RMVL OF TUMOR POLYP LESION SNARE TQ 10/21/2006 Large polyp at 50cm, 3 small sessile polyps in low rectosigmoid COLSC FLX W/RMVL OF TUMOR POLYP LESION SNARE TQ 06/25/2011 polyp in rectum DIAGNOSIS/HISTORY left 5th finger, laceration repair HERNIA REPAIR HX PAST SURGICAL HISTORY OF Right 1979 right shoulder Dislocated collar bone, ORIF Dr. Kilgore PAST SURGICAL HISTORY OF N/A 08/20/2020 Prostate biopsy RPR PRIMARY OPEN/PRQ RUPTURED ACHILLES W/GRAFT Right 2018 RPR UMBILICAL HRNA 5 YRS/> REDUCIBLE 07/15/2009 with mesh Medications: Current Outpatient Medications Medication Sig aspirin 81 mg chewable tablet Take 1 tablet by mouth twice daily. levothyroxine (SYNTHROID) 150 mcg tablet Take 1 tablet by mouth once daily. Take on empty stomach. For thyroid prasugrel (EFFIENT) 10 mg tab Take 1 tablet by mouth once daily. Start with 60 mg loading dose after you stop brilinta, then 10 mg daily atorvastatin (LIPITOR) 80 mg tablet Take 1 tablet by mouth daily at bedtime. metoprolol tartrate, short acting, (LOPRESSOR) 25 mg tablet Take 1 tablet by mouth twice daily. finasteride (PROSCAR) 5 mg tablet TAKE 1 TABLET BY MOUTH EVERY DAY acetaminophen (TYLENOL) 325 mg tablet Take 2 tablets by mouth every 4 hours as needed for pain or fever (specify). albuterol HFA (PROVENTIL HFA, VENTOLIN HFA) 90 mcg/actuation inhaler INHALE 2-4 PUFFS INSTRUCTED EVERY 6 HOURS NEEDED FOR WHEEZING/SHORTNESS OF BREATH. nicotine (NICODERM) 7 mg/24 hr Apply 1 Patch as directed every 24 hours. (Patient not taking: Reported on 01/07/2022 ) No current facility-administered medications for this visit. Allergies: Bees ROS: General (negative for fatigue, malaise, weight loss/gain) HEENT (negative for headache, earache, recent vision changes, sinus pain, sore throat) Respiratory (no recent shortness of breath, hemoptysis) CV (negative for chest tightness, palpitations) Musculoskeletal (see HPI) Psych (no depression, anxiety) Florian Chavez MD documented in this encounter [facility] 01-06-2022 History of Present illness Narrative Images from the original note were not included. Cardiac Rehabilitation Hospital Based Program Supervising Physician: Rudi Aragon Diagnosis: PCI w/stent Phase: 2 Monitor: Yes Session Number: 27 Today's exercise session was comprised of a warm-up, aerobic conditioning phase, aerobic cool-down, and free weight resistance training. Patient tolerated prescribed exercise workload. Tele SR-ST without ectopic beats. Vitals WNL for patient. No chest discomfort. No medication changes. This is a hospital based cardiac rehab program. Patient working towards exercise goals by increasing exercise intensity. Patient working towards education goal by attending education sessions in cardiac rehabilitation. Patient has verbalized understanding of Heart Valves and Treatment education topic and the relation to disease managment. Patient's Daily Exercise Log will be scanned into [employer] once it is completed. These can be viewed by going under the Scanned Documents tab and looking for documents labeled Cardiac Rehabilitation. Daily Exercise Logs contain exercise data such as, but not limited to modality, intensity, duration and frequency of exercise, along with vital signs pre-, during, and post-exercise. Refer to patient's paper medical record for ECG rhythm strips, physician prescribed Individualized Treatment Plan, and education sessions covered. Emy Hairston Au Pair documented in this encounter [facility] 01-04-2022 History of Present illness Narrative Images from the original note were not included. Cardiac Rehabilitation Hospital Based Program Supervising Physician: Rudi Aragon Diagnosis: PCI w/stent Phase: 2 Monitor: Yes Session Number: 26 Today's exercise session was comprised of a warm-up, aerobic conditioning phase, aerobic cool-down, and free weight resistance training. Patient tolerated prescribed exercise workload. Tele SB-SR without ectopic beats. Vitals WNL for patient. No chest discomfort. No medication changes. This is a hospital based cardiac rehab program. Patient working towards exercise goals by sustaining exercise intensity and duration. Patient working towards education goal by attending education sessions in cardiac rehabilitation. Patient has verbalized understanding of NC and NTG education topic and the relation to disease managment. Patient's Daily Exercise Log will be scanned into [employer] once it is completed. These can be viewed by going under the Scanned Documents tab and looking for documents labeled Cardiac Rehabilitation. Daily Exercise Logs contain exercise data such as, but not limited to modality, intensity, duration and frequency of exercise, along with vital signs pre-, during, and post-exercise. Refer to patient's paper medical record for ECG rhythm strips, physician prescribed Individualized Treatment Plan, and education sessions covered. Karri Bearden Au Pair documented in this encounter [facility] 01-01-2022 History of Present illness Narrative Images from the original note were not included. Cardiac Rehabilitation [facility] Based Program Supervising Physician: Justyn Nice Diagnosis: PCI w/stent Phase: 2 Monitor: Yes Session Number: 25 Today's exercise session was comprised of a warm-up, aerobic conditioning phase, aerobic cool-down, and free weight resistance training. Patient tolerated prescribed exercise workload. Tele SB-SR without ectopic beats. Vitals WNL for patient. No chest discomfort. No medication changes. This is a hospital based cardiac rehab program. Patient working towards exercise goals by sustaining exercise intensity and duration. Patient working towards education goal by attending education sessions in cardiac rehabilitation. Patient has verbalized understanding of CAD education topic and the relation to disease managment. Patient's Daily Exercise Log will be scanned into [employer] once it is completed. These can be viewed by going under the Scanned Documents tab and looking for documents labeled Cardiac Rehabilitation. Daily Exercise Logs contain exercise data such as, but not limited to modality, intensity, duration and frequency of exercise, along with vital signs pre-, during, and post-exercise. Refer to patient's paper medical record for ECG rhythm strips, physician prescribed Individualized Treatment Plan, and education sessions covered. Karri Bearden Au Pair documented in this encounter [facility] 12-28-2021 History of Present illness Narrative Images from the original note were not included. Cardiac Rehabilitation Hospital Based Program Supervising Physician: Justyn Nice Diagnosis: PCI w/stent Phase: 2 Monitor: Yes Session Number: 24 Today's exercise session was comprised of a warm-up, aerobic conditioning phase, aerobic cool-down, and free weight resistance training. Patient tolerated prescribed exercise workload. Tele SB-SR without ectopic beats. Vitals WNL for patient. No chest discomfort. No medication changes. This is a hospital based cardiac rehab program. Patient working towards exercise goals by sustaining exercise intensity and duration. Patient working towards education goal by attending education sessions in cardiac rehabilitation. Patient has verbalized understanding of Advance Directives education topic and the relation to disease managment. Patient's Daily Exercise Log will be scanned into [employer] once it is completed. These can be viewed by going under the Scanned Documents tab and looking for documents labeled Cardiac Rehabilitation. Daily Exercise Logs contain exercise data such as, but not limited to modality, intensity, duration and frequency of exercise, along with vital signs pre-, during, and post-exercise. Refer to patient's paper medical record for ECG rhythm strips, physician prescribed Individualized Treatment Plan, and education sessions covered. Reva Castillo RN documented in this encounter [facility] 12-25-2021 History of Present illness Narrative Images from the original note were not included. Cardiac Rehabilitation Hospital Based Program Supervising Physician: Michoacano Neves Diagnosis: PCI w/stent Phase: 2 Monitor: Yes Session Number: 23 Today's exercise session was comprised of a warm-up, aerobic conditioning phase, aerobic cool-down, and free weight resistance training. Patient tolerated prescribed exercise workload. Tele SB-SR without ectopic beats. Vitals WNL for patient. No chest discomfort. No medication changes. This is a hospital based cardiac rehab program. Patient working towards exercise goals by increasing exercise duration. Patient working towards education goal by attending education sessions in cardiac rehabilitation. Patient has verbalized understanding of depression and heart disease education topic and the relation to disease managment. Patient's Daily Exercise Log will be scanned into [employer] once it is completed. These can be viewed by going under the Scanned Documents tab and looking for documents labeled Cardiac Rehabilitation. Daily Exercise Logs contain exercise data such as, but not limited to modality, intensity, duration and frequency of exercise, along with vital signs pre-, during, and post-exercise. Refer to patient's paper medical record for ECG rhythm strips, physician prescribed Individualized Treatment Plan, and education sessions covered. Karri Bearden Au Pair documented in this encounter [facility] 12-23-2021 History of Present illness Narrative Images from the original note were not included. Cardiac Rehabilitation [facility] Based Program Supervising Physician: Michoacano Neves Diagnosis: PCI w/stent Phase: 2 Monitor: Yes Session Number: 22 Today's exercise session was comprised of a warm-up, aerobic conditioning phase, aerobic cool-down, and free weight resistance training. Patient tolerated prescribed exercise workload. Tele SR without ectopic beats. Vitals WNL for patient. No chest discomfort. No medication changes. This is a hospital based cardiac rehab program. Patient working towards exercise goals by sustaining exercise intensity and duration. Patient working towards education goal by attending education sessions in cardiac rehabilitation. Patient has verbalized understanding of stress management education topic and the relation to disease managment. Patient's Daily Exercise Log will be scanned into [employer] once it is completed. These can be viewed by going under the Scanned Documents tab and looking for documents labeled Cardiac Rehabilitation. Daily Exercise Logs contain exercise data such as, but not limited to modality, intensity, duration and frequency of exercise, along with vital signs pre-, during, and post-exercise. Refer to patient's paper medical record for ECG rhythm strips, physician prescribed Individualized Treatment Plan, and education sessions covered. Agustina Ortiz RN documented in this encounter [facility] 12-21-2021 History of Present illness Narrative Images from the original note were not included. Cardiac Rehabilitation Hospital Based Program Supervising Physician: Michoacano Neves Diagnosis: PCI w/stent Phase: 2 Monitor: Yes Session Number: 21 Today's exercise session was comprised of a warm-up, aerobic conditioning phase, aerobic cool-down, and free weight resistance training. Patient tolerated prescribed exercise workload. Tele SR-ST without ectopic beats. Vitals WNL for patient. No chest discomfort. No medication changes. This is a hospital based cardiac rehab program. Patient working towards exercise goals by sustaining exercise intensity and duration. Patient working towards education goal by attending education sessions in cardiac rehabilitation. Patient has verbalized understanding of exercise education topic and the relation to disease managment. Patient's Daily Exercise Log will be scanned into [employer] once it is completed. These can be viewed by going under the Scanned Documents tab and looking for documents labeled Cardiac Rehabilitation. Daily Exercise Logs contain exercise data such as, but not limited to modality, intensity, duration and frequency of exercise, along with vital signs pre-, during, and post-exercise. Refer to patient's paper medical record for ECG rhythm strips, physician prescribed Individualized Treatment Plan, and education sessions covered. Agustina Ortiz RN documented in this encounter [facility] 12-18-2021 History of Present illness Narrative Images from the original note were not included. Cardiac Rehabilitation Hospital Based Program Supervising Physician: Ervin Moreau Diagnosis: PCI w/stent Phase: 2 Monitor: Yes Session Number: 20 Today's exercise session was comprised of a warm-up, aerobic conditioning phase, aerobic cool-down, and free weight resistance training. Patient tolerated prescribed exercise workload. Tele SB-SR without ectopic beats. Vitals WNL for patient. No chest discomfort. No medication changes. This is a hospital based cardiac rehab program. Patient working towards exercise goals by sustaining exercise intensity and duration. Patient working towards education goal by attending education sessions in cardiac rehabilitation. Patient has verbalized understanding of weight control education topic and the relation to disease managment. Patient's Daily Exercise Log will be scanned into [employer] once it is completed. These can be viewed by going under the Scanned Documents tab and looking for documents labeled Cardiac Rehabilitation. Daily Exercise Logs contain exercise data such as, but not limited to modality, intensity, duration and frequency of exercise, along with vital signs pre-, during, and post-exercise. Refer to patient's paper medical record for ECG rhythm strips, physician prescribed Individualized Treatment Plan, and education sessions covered. Karri Bearden [employer] documented in this encounter [facility] 12-09-2021 History of Present illness Narrative Images from the original note were not included. Cardiac Rehabilitation [facility] Based Program Supervising Physician: Rudi Aragon Diagnosis: PCI w/stent Phase: 2 Monitor: Yes Session Number: 17 Today's exercise session was comprised of a warm-up, aerobic conditioning phase, aerobic cool-down, and free weight resistance training. Patient tolerated prescribed exercise workload. Tele SR without ectopic beats. Vitals WNL for patient. No chest discomfort. No medication changes. This is a hospital based cardiac rehab program. Patient working towards exercise goals by sustaining exercise intensity andr duration. Patient working towards education goal by attending education sessions in cardiac rehabilitation. Patient has verbalized understanding of risk factors education topic and the relation to disease managment. Patient's Daily Exercise Log will be scanned into [employer] once it is completed. These can be viewed by going under the Scanned Documents tab and looking for documents labeled Cardiac Rehabilitation. Daily Exercise Logs contain exercise data such as, but not limited to modality, intensity, duration and frequency of exercise, along with vital signs pre-, during, and post-exercise. Refer to patient's paper medical record for ECG rhythm strips, physician prescribed Individualized Treatment Plan, and education sessions covered. Agustina Ortiz RN documented in this encounter [facility] 12-07-2021 History of Present illness Narrative Images from the original note were not included. Cardiac Rehabilitation Hospital Based Program Supervising Physician: Rudi Aragon Diagnosis: PCI w/stent Phase: 2 Monitor: Yes Session Number: 16 Today's exercise session was comprised of a warm-up, aerobic conditioning phase, aerobic cool-down, and free weight resistance training. Patient tolerated prescribed exercise workload. Tele SR-ST without ectopic beats. Vitals WNL for patient. No chest discomfort. No medication changes. This is a hospital based cardiac rehab program. Patient working towards exercise goals by increasing exercise intensity. Patient working towards education goal by attending education sessions in cardiac rehabilitation. Patient has verbalized understanding of Blood Pressure education topic and the relation to disease managment. Patient's Daily Exercise Log will be scanned into [employer] once it is completed. These can be viewed by going under the Scanned Documents tab and looking for documents labeled Cardiac Rehabilitation. Daily Exercise Logs contain exercise data such as, but not limited to modality, intensity, duration and frequency of exercise, along with vital signs pre-, during, and post-exercise. Refer to patient's paper medical record for ECG rhythm strips, physician prescribed Individualized Treatment Plan, and education sessions covered. Reva Castillo RN documented in this encounter [facility] 12-04-2021 History of Present illness Narrative Images from the original note were not included. Cardiac Rehabilitation Hospital Based Program Supervising Physician: Justyn Nice Diagnosis: PCI w/stent Phase: 2 Monitor: Yes Session Number: 15 Today's exercise session was comprised of a warm-up, aerobic conditioning phase, aerobic cool-down, and free weight resistance training. Patient tolerated prescribed exercise workload. Tele SR-ST without ectopic beats. Vitals WNL for patient. No chest discomfort. No medication changes. This is a hospital based cardiac rehab program. Patient working towards exercise goals by sustaining exercise intensity and duration. Patient working towards education goal by attending education sessions in cardiac rehabilitation. Patient has verbalized understanding of Sugar, Fiber, NA+education topic and the relation to disease managment. Patient's Daily Exercise Log will be scanned into [employer] once it is completed. These can be viewed by going under the Scanned Documents tab and looking for documents labeled Cardiac Rehabilitation. Daily Exercise Logs contain exercise data such as, but not limited to modality, intensity, duration and frequency of exercise, along with vital signs pre-, during, and post-exercise. Refer to patient's paper medical record for ECG rhythm strips, physician prescribed Individualized Treatment Plan, and education sessions covered. Emy Hairston Au [employer] documented in this encounter [facility] 12-02-2021 History of Present illness Narrative Images from the original note were not included. Cardiac Rehabilitation Hospital Based Program Supervising Physician: Justyn Nice Diagnosis: PCI w/stent Phase: 2 Monitor: Yes Session Number: 14 Today's exercise session was comprised of a warm-up, aerobic conditioning phase, aerobic cool-down, and free weight resistance training. Patient tolerated prescribed exercise workload. Tele SR-ST without ectopic beats. Vitals WNL for patient. No chest discomfort. No medication changes. This is a hospital based cardiac rehab program. Patient working towards exercise goals by sustaining exercise intensity and duration. Patient working towards education goal by attending education sessions in cardiac rehabilitation. Patient has verbalized understanding of portion control education topic and the relation to disease managment. Patient's Daily Exercise Log will be scanned into [employer] once it is completed. These can be viewed by going under the Scanned Documents tab and looking for documents labeled Cardiac Rehabilitation. Daily Exercise Logs contain exercise data such as, but not limited to modality, intensity, duration and frequency of exercise, along with vital signs pre-, during, and post-exercise. Refer to patient's paper medical record for ECG rhythm strips, physician prescribed Individualized Treatment Plan, and education sessions covered. Karri Bearden [employer] documented in this encounter [facility] 11-30-2021 History of Present illness Narrative Images from the original note were not included. Cardiac Rehabilitation Hospital Based Program Supervising Physician: Justyn Nice Diagnosis: PCI w/stent Phase: 2 Monitor: Yes Session Number: 13 Today's exercise session was comprised of a warm-up, aerobic conditioning phase, aerobic cool-down, and free weight resistance training. Patient tolerated prescribed exercise workload. Tele SR-ST without ectopic beats. Vitals WNL for patient. No chest discomfort. No medication changes. This is a hospital based cardiac rehab program. Patient working towards exercise goals by sustaining exercise intensity and duration. Patient working towards education goal by attending education sessions in cardiac rehabilitation. Patient has verbalized understanding of [employer] education topic and the relation to disease managment. Patient's Daily Exercise Log will be scanned into [employer] once it is completed. These can be viewed by going under the Scanned Documents tab and looking for documents labeled Cardiac Rehabilitation. Daily Exercise Logs contain exercise data such as, but not limited to modality, intensity, duration and frequency of exercise, along with vital signs pre-, during, and post-exercise. Refer to patient's paper medical record for ECG rhythm strips, physician prescribed Individualized Treatment Plan, and education sessions covered. Reva Castillo RN documented in this encounter [facility] 11-27-2021 History of Present illness Narrative Images from the original note were not included. Cardiac Rehabilitation [facility] Based Program Supervising Physician: Michoacano Neves Diagnosis: PCI w/stent Phase: 2 Monitor: Yes Session Number: 12 Today's exercise session was comprised of a warm-up, aerobic conditioning phase, aerobic cool-down, and free weight resistance training. Patient tolerated prescribed exercise workload. Tele SB-SR without ectopic beats. Vitals WNL for patient. No chest discomfort. No medication changes. This is a hospital based cardiac rehab program. Patient working towards exercise goals by increasing exercise intensity and duration. Patient working towards education goal by attending education sessions in cardiac rehabilitation. Patient has verbalized understanding of Mediterranean Diet education topic and the relation to disease managment. Patient's Daily Exercise Log will be scanned into [employer] once it is completed. These can be viewed by going under the Scanned Documents tab and looking for documents labeled Cardiac Rehabilitation. Daily Exercise Logs contain exercise data such as, but not limited to modality, intensity, duration and frequency of exercise, along with vital signs pre-, during, and post-exercise. Refer to patient's paper medical record for ECG rhythm strips, physician prescribed Individualized Treatment Plan, and education sessions covered. Emy Hairston Au [employer] documented in this encounter [facility] 11-25-2021 History of Present illness Narrative Images from the original note were not included. Cardiac Rehabilitation Hospital Based Program Supervising Physician: Michoacano Neves Diagnosis: PCI w/stent Phase: 2 Monitor: Yes Session Number: 11 Today's exercise session was comprised of a warm-up, aerobic conditioning phase, aerobic cool-down, and free weight resistance training. Patient tolerated prescribed exercise workload. Tele SB-ST without ectopic beats. Vitals WNL for patient. No chest discomfort. No medication changes. This is a hospital based cardiac rehab program. Patient working towards exercise goals by increasing exercise duration. Patient working towards education goal by attending education sessions in cardiac rehabilitation. Patient has verbalized understanding of heart valves education topic and the relation to disease managment. Patient's Daily Exercise Log will be scanned into [employer] once it is completed. These can be viewed by going under the Scanned Documents tab and looking for documents labeled Cardiac Rehabilitation. Daily Exercise Logs contain exercise data such as, but not limited to modality, intensity, duration and frequency of exercise, along with vital signs pre-, during, and post-exercise. Refer to patient's paper medical record for ECG rhythm strips, physician prescribed Individualized Treatment Plan, and education sessions covered. Karri Bearden [employer] documented in this encounter [facility] 11-20-2021 History of Present illness Narrative Images from the original note were not included. Cardiac Rehabilitation Hospital Based Program Supervising Physician: Ervin Moreau Diagnosis: PCI w/stent Phase: 2 Monitor: Yes Session Number: 9 Today's exercise session was comprised of a warm-up, aerobic conditioning phase, aerobic cool-down, and free weight resistance training. Patient tolerated prescribed exercise workload. Tele SB-SR without ectopic beats. Vitals WNL for patient. No chest discomfort. No medication changes. This is a hospital based cardiac rehab program. Patient working towards exercise goals by sustaining exercise intensity and duration. Patient working towards education goal by attending education sessions in cardiac rehabilitation. Patient has verbalized understanding of heart attack education topic and the relation to disease managment. Patient's Daily Exercise Log will be scanned into [employer] once it is completed. These can be viewed by going under the Scanned Documents tab and looking for documents labeled Cardiac Rehabilitation. Daily Exercise Logs contain exercise data such as, but not limited to modality, intensity, duration and frequency of exercise, along with vital signs pre-, during, and post-exercise. Refer to patient's paper medical record for ECG rhythm strips, physician prescribed Individualized Treatment Plan, and education sessions covered. Karri Bearden [employer] documented in this encounter [facility] 11-18-2021 History of Present illness Narrative Images from the original note were not included. Cardiac Rehabilitation [facility] Based Program Supervising Physician: Ervin Moreau Diagnosis: PCI w/stent Phase: 2 Monitor: Yes Session Number: 8 Today's exercise session was comprised of a warm-up, aerobic conditioning phase, aerobic cool-down, and free weight resistance training. Patient tolerated prescribed exercise workload. Tele SB-SR without ectopic beats. Vitals WNL for patient. No chest discomfort. No medication changes. This is a hospital based cardiac rehab program. Patient working towards exercise goals by increasing exercise duration and intensity. Patient working towards education goal by attending education sessions in cardiac rehabilitation. Patient has verbalized understanding of CAD/interventions education topic and the relation to disease managment. Patient's Daily Exercise Log will be scanned into [employer] once it is completed. These can be viewed by going under the Scanned Documents tab and looking for documents labeled Cardiac Rehabilitation. Daily Exercise Logs contain exercise data such as, but not limited to modality, intensity, duration and frequency of exercise, along with vital signs pre-, during, and post-exercise. Refer to patient's paper medical record for ECG rhythm strips, physician prescribed Individualized Treatment Plan, and education sessions covered. Agustina Ortiz RN documented in this encounter [facility] 11-16-2021 History of Present illness Narrative Images from the original note were not included. Cardiac Rehabilitation Hospital Based Program Supervising Physician: Ervin Moreau Diagnosis: PCI w/stent Phase: 2 Monitor: Yes Session Number: 7 Today's exercise session was comprised of a warm-up, aerobic conditioning phase, aerobic cool-down, and free weight resistance training. Patient tolerated prescribed exercise workload. Tele SB-SR without ectopic beats. Vitals WNL for patient. No chest discomfort. No medication changes. This is a hospital based cardiac rehab program. Patient working towards exercise goals by sustaining exercise intensity and duration. Patient working towards education goal by attending education sessions in cardiac rehabilitation. Patient has verbalized understanding of A&P education topic and the relation to disease managment. Patient's Daily Exercise Log will be scanned into [employer] once it is completed. These can be viewed by going under the Scanned Documents tab and looking for documents labeled Cardiac Rehabilitation. Daily Exercise Logs contain exercise data such as, but not limited to modality, intensity, duration and frequency of exercise, along with vital signs pre-, during, and post-exercise. Refer to patient's paper medical record for ECG rhythm strips, physician prescribed Individualized Treatment Plan, and education sessions covered. Emy aHirston [employer] documented in this encounter [facility] 11-13-2021 History of Present illness Narrative Images from the original note were not included. Cardiac Rehabilitation Hospital Based Program Supervising Physician: Rudi Aragon Diagnosis: PCI w/stent Phase: 2 Monitor: Yes Session Number: 6 Today's exercise session was comprised of a warm-up, aerobic conditioning phase, aerobic cool-down, and free weight resistance training. Patient tolerated prescribed exercise workload. Tele SB-SR without ectopic beats. Vitals WNL for patient. No chest discomfort. No medication changes. This is a hospital based cardiac rehab program. Patient working towards exercise goals by increasing exercise intensity. Patient working towards education goal by attending education sessions in cardiac rehabilitation. Patient has verbalized understanding of advanced directives education topic and the relation to disease managment. Patient's Daily Exercise Log will be scanned into [employer] once it is completed. These can be viewed by going under the Scanned Documents tab and looking for documents labeled Cardiac Rehabilitation. Daily Exercise Logs contain exercise data such as, but not limited to modality, intensity, duration and frequency of exercise, along with vital signs pre-, during, and post-exercise. Refer to patient's paper medical record for ECG rhythm strips, physician prescribed Individualized Treatment Plan, and education sessions covered. Karri Bearden [employer] documented in this encounter [facility] 11-11-2021 History of Present illness Narrative Images from the original note were not included. Cardiac Rehabilitation Hospital Based Program Supervising Physician: Rudi Aragon Diagnosis: PCI w/stent Phase: 2 Monitor: Yes Session Number: 5 Today's exercise session was comprised of a warm-up, aerobic conditioning phase, aerobic cool-down, and free weight resistance training. Patient tolerated prescribed exercise workload. Tele SR without ectopic beats. Vitals WNL for patient. No chest discomfort. No medication changes. This is a hospital based cardiac rehab program. Patient working towards exercise goals by sustaining exercise intensity and duration. Patient working towards education goal by attending education sessions in cardiac rehabilitation. Patient has verbalized understanding of depression education topic and the relation to disease managment. Patient's Daily Exercise Log will be scanned into [employer] once it is completed. These can be viewed by going under the Scanned Documents tab and looking for documents labeled Cardiac Rehabilitation. Daily Exercise Logs contain exercise data such as, but not limited to modality, intensity, duration and frequency of exercise, along with vital signs pre-, during, and post-exercise. Refer to patient's paper medical record for ECG rhythm strips, physician prescribed Individualized Treatment Plan, and education sessions covered. Agustina Ortiz RN documented in this encounter [facility] 11-10-2021 History of Present illness Narrative Chief Complaint Patient presents with: 6 Month Exam HPI Lorenzo Reis is a 66 year old male who presents here today for 6 month follow up. Declined getting the Booster for COVID. He did get his 2 vaccines. Has an advanced directive. He still smokes about half ppd. He has not started the nicotine patches yet. No bowel, Gi, or urinary issues. Is taking Proscar 5 mg daily[address] Follow[address] with Dr. Martínez, Urologist. Thyroid: Taking Synthroid 175 mcg daily. Denies missing any dosages. HTN/Lipid/CAD: Does not check BP at home. Taking Lopressor 25 mg BID and Effient 10 mg daily, Lipitor 80 mg daily and 81 mg aspirin. No chest pains, dizziness, or SOB. Follows with Cardio, Dr. Gomez. He is doing Cardiac rehab through [facility]. S/P PCI 10/06. Shoulder: Pt was recently in [facility] ER on 11/02/21 for Rt shoulder pain after falling from 3 feet high. Landed on his right side. Hx of right shoulder surgery. Denied any head injury, LOC, no neck pain. XR done. Dx with shoulder sprain. No medications given. Rated pain 0/10 at this time, sharp pain with movement, has to assist his arm to lift it. Unable to lift the arm above head. He has been using Tylenol, ice, topical pain reliever. He has not seen any specialists for the shoulder. He is not claiming workers comp. He feels this is slowly improving. Past medical history, appointments, medications, allergies reviewed. Previous Medical History PAST MEDICAL HISTORY Diagnosis Date Acute pulmonary embolism (HCC) 06/2020 unknown cause; pt on Eliquis Benign neoplasm of rectum and anal canal History of peptic ulcer disease Pure hypercholesterolemia Snoring Tobacco use Unspecified hypothyroidism Previous Surgical History PAST SURGICAL HISTORY Procedure Laterality Date COLONOSCOPY FLX DX W/COLLJ SPEC WHEN PFRMD 06/16/2009 Colonoscopy COLONOSCOPY FLX DX W/COLLJ SPEC WHEN PFRMD 08/05/2016 Colonoscopy COLONOSCOPY FLX DX W/COLLJ SPEC WHEN PFRMD 02/15/2018 multiple adenomatous polyps, repeat in 3 years COLONOSCOPY FLX DX W/COLLJ SPEC WHEN PFRMD 12/23/2020 COLSC FLX W/RMVL OF TUMOR POLYP LESION SNARE TQ 10/21/2006 Large polyp at 50cm, 3 small sessile polyps in low rectosigmoid COLSC FLX W/RMVL OF TUMOR POLYP LESION SNARE TQ 06/25/2011 polyp in rectum DIAGNOSIS/HISTORY left 5th finger, laceration repair HERNIA REPAIR HX PAST SURGICAL HISTORY OF Right 1979 right shoulder Dislocated collar bone, ORIF Dr. Kilgore PAST SURGICAL HISTORY OF N/A 08/20/2020 Prostate biopsy RPR PRIMARY OPEN/PRQ RUPTURED ACHILLES W/GRAFT Right 2018 RPR UMBILICAL HRNA 5 YRS/> REDUCIBLE 07/15/2009 with mesh Family History FAMILY HISTORY Problem Relation Age of Onset Alzheimer's Disease Mother Coronary Artery Disease Father [place] Prostate Cancer Father Patient Allergies ALLERGIES Allergen Reactions Bees Swelling Swelling of throat; pt has been through desensition Current Medications Current Outpatient Medications on File Prior to Visit Medication Sig levothyroxine (SYNTHROID) 175 mcg tablet Take 1 tablet by mouth once daily. prasugrel (EFFIENT) 10 mg tab Take 1 tablet by mouth once daily. Start with 60 mg loading dose after you stop brilinta, then 10 mg daily atorvastatin (LIPITOR) 80 mg tablet Take 1 tablet by mouth daily at bedtime. aspirin 81 mg chewable tablet Take 1 tablet by mouth once daily. metoprolol tartrate, short acting, (LOPRESSOR) 25 mg tablet Take 1 tablet by mouth twice daily. nicotine (NICODERM) 7 mg/24 hr Apply 1 Patch as directed every 24 hours. finasteride (PROSCAR) 5 mg tablet TAKE 1 TABLET BY MOUTH EVERY DAY acetaminophen (TYLENOL) 325 mg tablet Take 2 tablets by mouth every 4 hours as needed for pain or fever (specify). albuterol HFA (PROVENTIL HFA, VENTOLIN HFA) 90 mcg/actuation inhaler INHALE 2-4 PUFFS INSTRUCTED EVERY 6 HOURS NEEDED FOR WHEEZING/SHORTNESS OF BREATH. No current facility-administered medications on file prior to visit. Social History Social History Tobacco Use Smoking status: Current Every Day Smoker Packs/day: 1.00 Years: 40.00 Pack years: 40.00 Types: Cigarettes Smokeless tobacco: Never Used Vaping Use Vaping Use: Never used Substance Use Topics Alcohol use: Yes Alcohol/week: 14.0 standard drinks Types: 6 Cans of Beer (12oz), 8 Cans of beer per week Comment: 8 beers per week Drug use: No EXAM: BP 120/74 Pulse 78 Resp 16 Wt 95 kg (209 lb 6.4 oz) BMI 30.92 kg/m General Appearance: Well appearing, alert, in no acute distress, well-hydrated, well nourished.. Lungs: Lungs clear to auscultation. No wheezing, rhonchi, rales.. Heart: RRR without murmur, gallop, or rubs. No ectopy. Extremities: right shoulder; limited ROM, pain with movement. Ear: left; mild erythema and swelling of lower ear lobe, no drainage, mild tenderness Health Maintenance List ABDOMINAL AORTIC ANEURYSM SCREENING Never done SHINGRIX VACCINE(2 of 2) due on 08/01/2019 PNEUMOVAX AGE 65 AND OVER WITH 5YR LOOKBACK(1) due on 2020 ADVANCE DIRECTIVE DISCUSSION Never done COVID-19 VACCINE(3 - Booster for Moderna series) due on 08/24/2021 LUNG CANCER SCREENING due on 09/29/2021 ANNUAL PCP TEAM CHRONIC DISEASE VISIT due on 10/06/2022 DEPRESSION SCREENING due on 10/30/2022 LDL CHOLESTEROL due on 11/03/2022 COLORECTAL CANCER SCREENING due on 12/24/2023 DIABETES SCREEN due on 11/03/2024 PROSTATE CANCER SCREENING DISCUSSION due on 02/25/2026 LIPID SCREEN due on 11/03/2026 DTAP,TDAP,TD(4 - Td or Tdap) due on 03/28/2030 INFLUENZA Completed HEPATITIS C SCREENING Completed MENINGOCOCCAL CONJUGATE Aged Out Data reviewed Appointment on 11/03/2021 Component Date Value TSH 11/03/2021 0.087 (A) Cholesterol, Total 11/03/2021 124 Triglyceride 11/03/2021 96 HDL Cholesterol 11/03/2021 34 (A) Non HDL Cholesterol 11/03/2021 90 Fasting Time 11/03/2021 12 VLDL Cholesterol 11/03/2021 19 TC:HDL Ratio 11/03/2021 3.65 LDL Cholesterol 11/03/2021 71 LDL:HDL Ratio 11/03/2021 2.09 Protein, Total 11/03/2021 6.6 Albumin 11/03/2021 3.8 (A) Calcium, Total 11/03/2021 8.3 (A) Bilirubin, Total 11/03/2021 0.3 Alkaline Phosphatase 11/03/2021 92 AST 11/03/2021 17 ALT 11/03/2021 18 Glucose 11/03/2021 114 (A) BUN 11/03/2021 9 Creatinine 11/03/2021 0.71 (A) Sodium 11/03/2021 139 Potassium 11/03/2021 4.0 Chloride 11/03/2021 104 CO2 11/03/2021 28 Anion Gap 11/03/2021 7 (A) Estimated Glomerular Emanuel* 11/03/2021 101 [facility] ER Reports from 11/02/21 ASSESSMENT/PLAN: 1. Acquired hypothyroidism - ICD9: 244.9, ICD10: E03.9 (primary diagnosis) - Instructed patient on importance of taking on an empty stomach either first thing in the morning or at bedtime. - Decrease Synthroid dose to 0.150 mg Stable 2. Mixed hyperlipidemia - ICD9: 272.2, ICD10: E78.2 - good control - Continue current medication. - Encouraged following a low fat, low cholesterol diet. - Discussed the benefits of regular aerobic exercise and weight loss. - ASPIRIN 81 MG CHEWABLE TABLET 3. 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 Continue with Cardio - ASPIRIN 81 MG CHEWABLE TABLET 4. Pulmonary nodules - ICD9: 793.19, ICD10: R91.8 Continue current medications. 5. Smoker - ICD9: 305.1, ICD10: F17.200 - Cessation encouraged. - Physiologic and physical aspects of tobacco addiction as well as strategies for quitting were discussed. - Counseling was given focusing on the harmful effects of this addiction especially given the patient's medical condition(s) which will be worsened because of the chemicals in tobacco. - Counseling was given 3-4 minutes. - Recommended to called 1-800-QUIT NOW - Pt has Nicotine patches at home already 6. Benign prostatic hyperplasia without lower urinary tract symptoms - ICD9: 600.00, ICD10: N40.0 Continue current medications. 7. Acute pain of right shoulder - ICD9: 719.41, ICD10: M25.511 Bruised shoulder Improving Continue to monitor, if not improving call and would recommend Physical Therapy 8. Ear lobe infection Start Keflex QID x 5 days Follow up in 6 months with fasting labs prior. I agree with the Chief Complaint, ROS, and Past Histories independently gathered by the clinical family support coordinator and the remaining scribed note accurately describes my personal service to the patient. Medical Decision Making: Problems: Moderate: 2+ stable chronic illnesses Data: Unique test result(s) reviewed: 3+ Unique test(s) ordered: 3+ Risk: Moderate: Drug management Medical Decision Making Level: 4 - Moderate Mark Ramirez MD The documentation for this note was completed by Cynthia Chi Ma acting as scribe for Mark Ramirez MD. November 10, 2021 9:19 AM. Cynthia Chi Ma documented in this encounter [facility] 11-06-2021 History of Present illness Narrative Images from the original note were not included. Cardiac Rehabilitation Hospital Based Program Supervising Physician: Justyn Nice Diagnosis: PCI w/stent Phase: 2 Monitor: Yes Session Number: 3 Today's exercise session was comprised of a warm-up, aerobic conditioning phase, aerobic cool-down, and free weight resistance training. Patient tolerated prescribed exercise workload. Tele SB-SR without ectopic beats. Vitals WNL for patient. No chest discomfort. No medication changes. This is a hospital based cardiac rehab program. Patient working towards exercise goals by sustaining exercise intensity and duration. Patient working towards education goal by attending education sessions in cardiac rehabilitation. Patient has verbalized understanding of Exercise education topic and the relation to disease managment. Patient's Daily Exercise Log will be scanned into [employer] once it is completed. These can be viewed by going under the Scanned Documents tab and looking for documents labeled Cardiac Rehabilitation. Daily Exercise Logs contain exercise data such as, but not limited to modality, intensity, duration and frequency of exercise, along with vital signs pre-, during, and post-exercise. Refer to patient's paper medical record for ECG rhythm strips, physician prescribed Individualized Treatment Plan, and education sessions covered. Emy Hairston Au Pair yessy documented in this encounter [facility] 11-04-2021 History of Present illness Narrative Images from the original note were not included. Cardiac Rehabilitation Hospital Based Program Supervising Physician: Justyn Nice Diagnosis: PCI w/stent Phase: 2 Monitor: Yes Session Number: 2 Today's exercise session was comprised of a warm-up, aerobic conditioning phase, aerobic cool-down, and free weight resistance training. Patient tolerated prescribed exercise workload. Tele SB-SR without ectopic beats. Vitals WNL for patient. No chest discomfort. No medication changes. This is a hospital based cardiac rehab program. Patient working towards exercise goals by increasing exercise intensity and duration. Patient working towards education goal by attending education sessions in cardiac rehabilitation. Patient has verbalized understanding of weight control education topic and the relation to disease managment. Patient's Daily Exercise Log will be scanned into [employer] once it is completed. These can be viewed by going under the Scanned Documents tab and looking for documents labeled Cardiac Rehabilitation. Daily Exercise Logs contain exercise data such as, but not limited to modality, intensity, duration and frequency of exercise, along with vital signs pre-, during, and post-exercise. Refer to patient's paper medical record for ECG rhythm strips, physician prescribed Individualized Treatment Plan, and education sessions covered. Agustina Ortiz RN documented in this encounter [facility] 11-02-2021 History of Present illness Narrative Images from the original note were not included. Cardiac Rehabilitation Hospital [facility] Program Supervising Physician: Justyn Nice Diagnosis: PCI w/stent Phase: 2 Monitor: Yes Session Number: 1 Today's exercise session was comprised of a warm-up, aerobic conditioning phase, aerobic cool-down, and free weight resistance training. Patient tolerated prescribed exercise workload on this first day of exercise. Tele SR VR=[id number] without ectopic beats. Vitals WNL for patient. No chest discomfort. No medication changes. This is a hospital based cardiac rehab program. Patient working towards exercise goals by increasing exercise frequency, intensity and duration. Patient working towards education goal by attending education sessions in cardiac rehabilitation. Patient has verbalized understanding of Diabetes education topic and the relation to disease managment. Patient's Daily Exercise Log will be scanned into [employer] once it is completed. These can be viewed by going under the Scanned Documents tab and looking for documents labeled Cardiac Rehabilitation. Daily Exercise Logs contain exercise data such as, but not limited to modality, intensity, duration and frequency of exercise, along with vital signs pre-, during, and post-exercise. Refer to patient's paper medical record for ECG rhythm strips, physician prescribed Individualized Treatment Plan, and education sessions covered. Reva Castillo RN documented in this encounter [facility] 10-21-2021 Miscellaneous Notes OK to refill as ordered Mark Ramirez MD [facility] 10/06/21 NOV 11/10/21 Reny Ku Ma Patient has been identified by name and date of : Yes Pending Prescriptions Disp Refills LEVOTHYROXINE 175 MCG TABLET 90 tablet 3 Sig: Take 1 tablet by mouth once daily. RONNIE: No RX INSTRUCTIONS: Patient aware RX will be sent to pharmacy. No need to notify patient. Ema Ward Pss documented in this encounter [facility] 09-26-2021 History of Past i llness Narrative Problem Noted Date Resolved Date Unstable angina 09/26/2021 09/26/2021 Acute bronchitis 09/21/2021 09/24/2021 Unstable angina 09/20/2021 09/25/2021 Hypokalemia 05/19/2020 09/25/2021 Flu-like symptoms 05/19/2020 09/25/2021 Lightheadedness 05/19/2020 09/25/2021 Bilateral pulmonary embolism 05/19/2020 Post-operative state 08/11/2018 09/25/2021 Calcaneal spur, right 05/26/2018 06/28/2018 Colon cancer screening 08/05/2016 7 Unspecified gastritis and ga stroduodenitis without mention of hemorrhage 06/25/2011 12/20/2014 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 Ingrowing nail 06/09/2007 12/20/2014 Benign neoplasm of colon 10/21/2006 015 Hypothyroidism 10/14/2005 09/25/2021 Pure hypercholesterolemia 2010 documented as of this encounter (statuses as of 10/21/2021) [facility] History of Past illness Narrative* Problem Noted Date Resolved Date Unstable angina 09/26/2021 09/26/2021 Acute bronchitis 09/21/2021 09/24/2021 Unstable angina 09/20/2021 09/25/2021 Hypokalemia 05/19/2020 09/25/2021 Flu-like symptoms 05/19/2020 09/25/2021 Lightheadedness 05/19/2020 09/25/2021 Bilateral pulmonary embolism 05/19/2020 Post-operative state 08/11/2018 09/25/2021 Calcaneal spur, right 05/26/2018 06/28/2018 Colon cancer screening 08/05/2016 7 Unspecified gastritis and ga stroduodenitis without mention of hemorrhage 06/25/2011 12/20/2014 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 Ingrowing nail 06/09/2007 12/20/2014 Benign neoplasm of colon 10/21/2006 015 Hypothyroidism 10/14/2005 09/25/2021 Pure hypercholesterolemia 2010 documented as of this encounter (statuses as of 11/02/2021) [facility] History of Past illness Narrative* Problem Noted Date Resolved Date Unstable angina 09/26/2021 09/26/2021 Acute bronchitis 09/21/2021 09/24/2021 Unstable angina 09/20/2021 09/25/2021 Hypokalemia 05/19/2020 09/25/2021 Flu-like symptoms 05/19/2020 09/25/2021 Lightheadedness 05/19/2020 09/25/2021 Bilateral pulmonary embolism 05/19/2020 Post-operative state 08/11/2018 09/25/2021 Calcaneal spur, right 05/26/2018 06/28/2018 Colon cancer screening 08/05/2016 7 Unspecified gastritis and ga stroduodenitis without mention of hemorrhage 06/25/2011 12/20/2014 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 Ingrowing nail 06/09/2007 12/20/2014 Benign neoplasm of colon 10/21/2006 015 Hypothyroidism 10/14/2005 09/25/2021 Pure hypercholesterolemia 2010 documented as of this encounter (statuses as of 11/04/2021) [facility] History of Past illness Narrative* Problem Noted Date Resolved Date Unstable angina 09/26/2021 09/26/2021 Acute bronchitis 09/21/2021 09/24/2021 Unstable angina 09/20/2021 09/25/2021 Hypokalemia 05/19/2020 09/25/2021 Flu-like symptoms 05/19/2020 09/25/2021 Lightheadedness 05/19/2020 09/25/2021 Bilateral pulmonary embolism 05/19/2020 Post-operative state 08/11/2018 09/25/2021 Calcaneal spur, right 05/26/2018 06/28/2018 Colon cancer screening 08/05/2016 7 Unspecified gastritis and ga stroduodenitis without mention of hemorrhage 06/25/2011 12/20/2014 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 Ingrowing nail 06/09/2007 12/20/2014 Benign neoplasm of colon 10/21/2006 015 Hypothyroidism 10/14/2005 09/25/2021 Pure hypercholesterolemia 2010 documented as of this encounter (statuses as of 11/06/2021) [facility] History of Past illness Narrative* Problem Noted Date Resolved Date Unstable angina 09/26/2021 09/26/2021 Acute bronchitis 09/21/2021 09/24/2021 Unstable angina 09/20/2021 09/25/2021 Hypokalemia 05/19/2020 09/25/2021 Flu-like symptoms 05/19/2020 09/25/2021 Lightheadedness 05/19/2020 09/25/2021 Bilateral pulmonary embolism 05/19/2020 Post-operative state 08/11/2018 09/25/2021 Calcaneal spur, right 05/26/2018 06/28/2018 Colon cancer screening 08/05/2016201 7 Unspecified gastritis and ga stroduodenitis without mention of hemorrhage 06/25/2011 12/20/2014 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 Ingrowing nail 06/09/2007 12/20/2014 Benign neoplasm of colon 10/21/2006 015 Hypothyroidism 10/14/2005 09/25/2021 Pure hypercholesterolemia 2010 documented as of this encounter (statuses as of 11/10/2021) [facility] History of Past illness Narrative* Problem Noted Date Resolved Date Unstable angina 09/26/2021 09/26/2021 Acute bronchitis 09/21/2021 09/24/2021 Unstable angina 09/20/2021 09/25/2021 Hypokalemia 05/19/2020 09/25/2021 Flu-like symptoms 05/19/2020 09/25/2021 Lightheadedness 05/19/2020 09/25/2021 Bilateral pulmonary embolism 05/19/2020 Post-operative state 08/11/2018 09/25/2021 Calcaneal spur, right 05/26/2018 06/28/2018 Colon cancer screening 08/05/2016 7 Unspecified gastritis and ga stroduodenitis without mention of hemorrhage 06/25/2011 12/20/2014 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 Ingrowing nail 06/09/2007 12/20/2014 Benign neoplasm of colon 10/21/2006 015 Hypothyroidism 10/14/2005 09/25/2021 Pure hypercholesterolemia 2010 documented as of this encounter (statuses as of 11/11/2021) [facility] History of Past illness Narrative* Problem Noted Date Resolved Date Unstable angina 09/26/2021 09/26/2021 Acute bronchitis 09/21/2021 09/24/2021 Unstable angina 09/20/2021 09/25/2021 Hypokalemia 05/19/2020 09/25/2021 Flu-like symptoms 05/19/2020 09/25/2021 Lightheadedness 05/19/2020 09/25/2021 Bilateral pulmonary embolism 05/19/2020 Post-operative state 08/11/2018 09/25/2021 Calcaneal spur, right 05/26/2018 06/28/2018 Colon cancer screening 08/05/2016 7 Unspecified gastritis and ga stroduodenitis without mention of hemorrhage 06/25/2011 12/20/2014 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 Ingrowing nail 06/09/2007 12/20/2014 Benign neoplasm of colon 10/21/2006 015 Hypothyroidism 10/14/2005 09/25/2021 Pure hypercholesterolemia 2010 documented as of this encounter (statuses as of 11/13/2021) [facility] History of Past illness Narrative* Problem Noted Date Resolved Date Unstable angina 09/26/2021 09/26/2021 Acute bronchitis 09/21/2021 09/24/2021 Unstable angina 09/20/2021 09/25/2021 Hypokalemia 05/19/2020 09/25/2021 Flu-like symptoms 05/19/2020 09/25/2021 Lightheadedness 05/19/2020 09/25/2021 Bilateral pulmonary embolism 05/19/2020 Post-operative state 08/11/2018 09/25/2021 Calcaneal spur, right 05/26/2018 06/28/2018 Colon cancer screening 08/05/2016 7 Unspecified gastritis and ga stroduodenitis without mention of hemorrhage 06/25/2011 12/20/2014 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 Ingrowing nail 06/09/2007 12/20/2014 Benign neoplasm of colon 10/21/2006 015 Hypothyroidism 10/14/2005 09/25/2021 Pure hypercholesterolemia 2010 documented as of this encounter (statuses as of 11/16/2021) [facility] History of Past illness Narrative* Problem Noted Date Resolved Date Unstable angina 09/26/2021 09/26/2021 Acute bronchitis 09/21/2021 09/24/2021 Unstable angina 09/20/2021 09/25/2021 Hypokalemia 05/19/2020 09/25/2021 Flu-like symptoms 05/19/2020 09/25/2021 Lightheadedness 05/19/2020 09/25/2021 Bilateral pulmonary embolism 05/19/2020 Post-operative state 08/11/2018 09/25/2021 Calcaneal spur, right 05/26/2018 06/28/2018 Colon cancer screening 08/05/2016 7 Unspecified gastritis and ga stroduodenitis without mention of hemorrhage 06/25/2011 12/20/2014 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 Ingrowing nail 06/09/2007 12/20/2014 Benign neoplasm of colon 10/21/2006 015 Hypothyroidism 10/14/2005 09/25/2021 Pure hypercholesterolemia 2010 documented as of this encounter (statuses as of 11/18/2021) [facility] History of Past illness Narrative* Problem Noted Date Resolved Date Unstable angina 09/26/2021 09/26/2021 Acute bronchitis 09/21/2021 09/24/2021 Unstable angina 09/20/2021 09/25/2021 Hypokalemia 05/19/2020 09/25/2021 Flu-like symptoms 05/19/2020 09/25/2021 Lightheadedness 05/19/2020 09/25/2021 Bilateral pulmonary embolism 05/19/2020 Post-operative state 08/11/2018 09/25/2021 Calcaneal spur, right 05/26/2018 06/28/2018 Colon cancer screening 08/05/2016 7 Unspecified gastritis and ga stroduodenitis without mention of hemorrhage 06/25/2011 12/20/2014 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 Ingrowing nail 06/09/2007 12/20/2014 Benign neoplasm of colon 10/21/2006 015 Hypothyroidism 10/14/2005 09/25/2021 Pure hypercholesterolemia 2010 documented as of this encounter (statuses as of 11/20/2021) [facility] History of Past illness Narrative* Problem Noted Date Resolved Date Unstable angina 09/26/2021 09/26/2021 Acute bronchitis 09/21/2021 09/24/2021 Unstable angina 09/20/2021 09/25/2021 Hypokalemia 05/19/2020 09/25/2021 Flu-like symptoms 05/19/2020 09/25/2021 Lightheadedness 05/19/2020 09/25/2021 Bilateral pulmonary embolism 05/19/2020 Post-operative state 08/11/2018 09/25/2021 Calcaneal spur, right 05/26/2018 06/28/2018 Colon cancer screening 08/05/2016 7 Unspecified gastritis and ga stroduodenitis without mention of hemorrhage 06/25/2011 12/20/2014 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 Ingrowing nail 06/09/2007 12/20/2014 Benign neoplasm of colon 10/21/2006 015 Hypothyroidism 10/14/2005 09/25/2021 Pure hypercholesterolemia 2010 documented as of this encounter (statuses as of 11/25/2021) [facility] History of Past illness Narrative* Problem Noted Date Resolved Date Unstable angina 09/26/2021 09/26/2021 Acute bronchitis 09/21/2021 09/24/2021 Unstable angina 09/20/2021 09/25/2021 Hypokalemia 05/19/2020 09/25/2021 Flu-like symptoms 05/19/2020 09/25/2021 Lightheadedness 05/19/2020 09/25/2021 Bilateral pulmonary embolism 05/19/2020 Post-operative state 08/11/2018 09/25/2021 Calcaneal spur, right 05/26/2018 06/28/2018 Colon cancer screening 08/05/2016 7 Unspecified gastritis and ga stroduodenitis without mention of hemorrhage 06/25/2011 12/20/2014 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 Ingrowing nail 06/09/2007 12/20/2014 Benign neoplasm of colon 10/21/2006 015 Hypothyroidism 10/14/2005 09/25/2021 Pure hypercholesterolemia 2010 documented as of this encounter (statuses as of 11/27/2021) [facility]03-12-2022 History of Past illness Narrative* Problem Noted Date Resolved Date Unstable angina 09/26/2021 09/26/2021 Acute bronchitis 09/21/2021 09/24/2021 Unstable angina 09/20/2021 09/25/2021 Hypokalemia 05/19/2020 09/25/2021 Flu-like symptoms 05/19/2020 09/25/2021 Lightheadedness 05/19/2020 09/25/2021 Bilateral pulmonary embolism 05/19/2020 Post-operative state 08/11/2018 09/25/2021 Calcaneal spur, right 05/26/2018 06/28/2018 Colon cancer screening 08/05/2016 7 Unspecified gastritis and ga stroduodenitis without mention of hemorrhage 06/25/2011 12/20/2014 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 Ingrowing nail 06/09/2007 12/20/2014 Benign neoplasm of colon 10/21/2006 015 Hypothyroidism 10/14/2005 09/25/2021 Pure hypercholesterolemia 2010 documented as of this encounter (statuses as of 11/30/2021) [facility]03[facility]22 History of Past illness Narrative* Problem Noted Date Resolved Date Unstable angina 09/26/2021 09/26/2021 Acute bronchitis 09/21/2021 09/24/2021 Unstable angina 09/20/2021 09/25/2021 Hypokalemia 05/19/2020 09/25/2021 Flu-like symptoms 05/19/2020 09/25/2021 Lightheadedness 05/19/2020 09/25/2021 Bilateral pulmonary embolism 05/19/2020 Post-operative state 08/11/2018 09/25/2021 Calcaneal spur, right 05/26/2018 06/28/2018 Colon cancer screening 08/05/2016 7 Unspecified gastritis and ga stroduodenitis without mention of hemorrhage 06/25/2011 12/20/2014 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 Ingrowing nail 06/09/2007 12/20/2014 Benign neoplasm of colon 10/21/2006 015 Hypothyroidism 10/14/2005 09/25/2021 Pure hypercholesterolemia 2010 documented as of this encounter (statuses as of 12/02/2021) [facility] History of Past illness Narrative* Problem Noted Date Resolved Date Unstable angina 09/26/2021 09/26/2021 Acute bronchitis 09/21/2021 09/24/2021 Unstable angina 09/20/2021 09/25/2021 Hypokalemia 05/19/2020 09/25/2021 Flu-like symptoms 05/19/2020 09/25/2021 Lightheadedness 05/19/2020 09/25/2021 Bilateral pulmonary embolism 05/19/2020 Post-operative state 08/11/2018 09/25/2021 Calcaneal spur, right 05/26/2018 06/28/2018 Colon cancer screening 08/05/2016 7 Unspecified gastritis and ga stroduodenitis without mention of hemorrhage 06/25/2011 12/20/2014 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 Ingrowing nail 06/09/2007 12/20/2014 Benign neoplasm of colon 10/21/2006 015 Hypothyroidism 10/14/2005 09/25/2021 Pure hypercholesterolemia 2010 documented as of this encounter (statuses as of 12/04/2021) [facility] History of Past illness Narrative* Problem Noted Date Resolved Date Unstable angina 09/26/2021 09/26/2021 Acute bronchitis 09/21/2021 09/24/2021 Unstable angina 09/20/2021 09/25/2021 Hypokalemia 05/19/2020 09/25/2021 Flu-like symptoms 05/19/2020 09/25/2021 Lightheadedness 05/19/2020 09/25/2021 Bilateral pulmonary embolism 05/19/2020 Post-operative state 08/11/2018 09/25/2021 Calcaneal spur, right 05/26/2018 06/28/2018 Colon cancer screening 08/05/2016 7 Unspecified gastritis and ga stroduodenitis without mention of hemorrhage 06/25/2011 12/20/2014 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 Ingrowing nail 06/09/2007 12/20/2014 Benign neoplasm of colon 10/21/2006 015 Hypothyroidism 10/14/2005 09/25/2021 Pure hypercholesterolemia 2010 documented as of this encounter (statuses as of 12/07/2021) [facility] History of Past illness Narrative* Problem Noted Date Resolved Date Unstable angina 09/26/2021 09/26/2021 Acute bronchitis 09/21/2021 09/24/2021 Unstable angina 09/20/2021 09/25/2021 Hypokalemia 05/19/2020 09/25/2021 Flu-like symptoms 05/19/2020 09/25/2021 Lightheadedness 05/19/2020 09/25/2021 Bilateral pulmonary embolism 05/19/2020 Post-operative state 08/11/2018 09/25/2021 Calcaneal spur, right 05/26/2018 06/28/2018 Colon cancer screening 08/05/2016 7 Unspecified gastritis and ga stroduodenitis without mention of hemorrhage 06/25/2011 12/20/2014 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 Ingrowing nail 06/09/2007 12/20/2014 Benign neoplasm of colon 10/21/2006 015 Hypothyroidism 10/14/2005 09/25/2021 Pure hypercholesterolemia 2010 documented as of this encounter (statuses as of 12/09/2021) [facility] History of Past illness Narrative* Problem Noted Date Resolved Date Unstable angina 09/26/2021 09/26/2021 Acute bronchitis 09/21/2021 09/24/2021 Unstable angina 09/20/2021 09/25/2021 Hypokalemia 05/19/2020 09/25/2021 Flu-like symptoms 05/19/2020 09/25/2021 Lightheadedness 05/19/2020 09/25/2021 Bilateral pulmonary embolism 05/19/2020 Post-operative state 08/11/2018 09/25/2021 Calcaneal spur, right 05/26/2018 06/28/2018 Colon cancer screening 08/05/2016 7 Unspecified gastritis and ga stroduodenitis without mention of hemorrhage 06/25/2011 12/20/2014 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 Ingrowing nail 06/09/2007 12/20/2014 Benign neoplasm of colon 10/21/2006 015 Hypothyroidism 10/14/2005 09/25/2021 Pure hypercholesterolemia 2010 documented as of this encounter (statuses as of 12/11/2021) [facility] History of Past illness Narrative* Problem Noted Date Resolved Date Unstable angina 09/26/2021 09/26/2021 Acute bronchitis 09/21/2021 09/24/2021 Unstable angina 09/20/2021 09/25/2021 Hypokalemia 05/19/2020 09/25/2021 Flu-like symptoms 05/19/2020 09/25/2021 Lightheadedness 05/19/2020 09/25/2021 Bilateral pulmonary embolism 05/19/2020 Post-operative state 08/11/2018 09/25/2021 Calcaneal spur, right 05/26/2018 06/28/2018 Colon cancer screening 08/05/2016 7 Unspecified gastritis and ga stroduodenitis without mention of hemorrhage 06/25/2011 12/20/2014 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 Ingrowing nail 06/09/2007 12/20/2014 Benign neoplasm of colon 10/21/2006 015 Hypothyroidism 10/14/2005 09/25/2021 Pure hypercholesterolemia 2010 documented as of this encounter (statuses as of 12/18/2021) [facility] History of Past illness Narrative* Problem Noted Date Resolved Date Unstable angina 09/26/2021 09/26/2021 Acute bronchitis 09/21/2021 09/24/2021 Unstable angina 09/20/2021 09/25/2021 Hypokalemia 05/19/2020 09/25/2021 Flu-like symptoms 05/19/2020 09/25/2021 Lightheadedness 05/19/2020 09/25/2021 Bilateral pulmonary embolism 05/19/2020 Post-operative state 08/11/2018 09/25/2021 Calcaneal spur, right 05/26/2018 06/28/2018 Colon cancer screening 08/05/2016 7 Unspecified gastritis and ga stroduodenitis without mention of hemorrhage 06/25/2011 12/20/2014 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 Ingrowing nail 06/09/2007 12/20/2014 Benign neoplasm of colon 10/21/2006 015 Hypothyroidism 10/14/2005 09/25/2021 Pure hypercholesterolemia 2010 documented as of this encounter (statuses as of 12/21/2021) [facility] History of Past illness Narrative* Problem Noted Date Resolved Date Unstable angina 09/26/2021 09/26/2021 Acute bronchitis 09/21/2021 09/24/2021 Unstable angina 09/20/2021 09/25/2021 Hypokalemia 05/19/2020 09/25/2021 Flu-like symptoms 05/19/2020 09/25/2021 Lightheadedness 05/19/2020 09/25/2021 Bilateral pulmonary embolism 05/19/2020 Post-operative state 08/11/2018 09/25/2021 Calcaneal spur, right 05/26/2018 06/28/2018 Colon cancer screening 08/05/2016 7 Unspecified gastritis and ga stroduodenitis without mention of hemorrhage 06/25/2011 12/20/2014 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 Ingrowing nail 06/09/2007 12/20/2014 Benign neoplasm of colon 10/21/2006 015 Hypothyroidism 10/14/2005 09/25/2021 Pure hypercholesterolemia 2010 documented as of this encounter (statuses as of 12/23/2021) [facility] History of Past illness Narrative* Problem Noted Date Resolved Date Unstable angina 09/26/2021 09/26/2021 Acute bronchitis 09/21/2021 09/24/2021 Unstable angina 09/20/2021 09/25/2021 Hypokalemia 05/19/2020 09/25/2021 Flu-like symptoms 05/19/2020 09/25/2021 Lightheadedness 05/19/2020 09/25/2021 Bilateral pulmonary embolism 05/19/2020 Post-operative state 08/11/2018 09/25/2021 Calcaneal spur, right 05/26/2018 06/28/2018 Colon cancer screening 08/05/2016 7 Unspecified gastritis and ga stroduodenitis without mention of hemorrhage 06/25/2011 12/20/2014 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 Ingrowing nail 06/09/2007 12/20/2014 Benign neoplasm of colon 10/21/2006 015 Hypothyroidism 10/14/2005 09/25/2021 Pure hypercholesterolemia 2010 documented as of this encounter (statuses as of 12/25/2021) [facility] History of Past illness Narrative* Problem Noted Date Resolved Date Unstable angina 09/26/2021 09/26/2021 Acute bronchitis 09/21/2021 09/24/2021 Unstable angina 09/20/2021 09/25/2021 Hypokalemia 05/19/2020 09/25/2021 Flu-like symptoms 05/19/2020 09/25/2021 Lightheadedness 05/19/2020 09/25/2021 Bilateral pulmonary embolism 05/19/2020 Post-operative state 08/11/2018 09/25/2021 Calcaneal spur, right 05/26/2018 06/28/2018 Colon cancer screening 08/05/2016 01/19/201 7 Unspecified gastritis and ga stroduodenitis without mention of hemorrhage 06/25/2011 12/20/2014 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 Ingrowing nail 06/09/2007 12/20/2014 Benign neoplasm of colon 10/21/2006 015 Hypothyroidism 10/14/2005 09/25/2021 Pure hypercholesterolemia 2010 documented as of this encounter (statuses as of 12/28/2021) [facility]22 History of Past illness Narrative* Problem Noted Date Resolved Date Unstable angina 09/26/2021 09/26/2021 Acute bronchitis 09/21/2021 09/24/2021 Unstable angina 09/20/2021 09/25/2021 Hypokalemia 05/19/2020 09/25/2021 Flu-like symptoms 05/19/2020 09/25/2021 Lightheadedness 05/19/2020 09/25/2021 Bilateral pulmonary embolism 05/19/2020 Post-operative state 08/11/2018 09/25/2021 Calcaneal spur, right 05/26/2018 06/28/2018 Colon cancer screening 08/05/201608/05/201 7 Unspecified gastritis and ga stroduodenitis without mention of hemorrhage 06/25/2011 12/20/2014 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 Ingrowing nail 06/09/2007 12/20/2014 Benign neoplasm of colon 10/21/2006 015 Hypothyroidism 10/14/2005 09/25/2021 Pure hypercholesterolemia 2010 documented as of this encounter (statuses as of 01/01/2022) [facility]03[facility] History of Past illness Narrative* Problem Noted Date Resolved Date Unstable angina 09/26/2021 09/26/2021 Acute bronchitis 09/21/2021 09/24/2021 Unstable angina 09/20/2021 09/25/2021 Hypokalemia 05/19/2020 09/25/2021 Flu-like symptoms 05/19/2020 09/25/2021 Lightheadedness 05/19/2020 09/25/2021 Bilateral pulmonary embolism 05/19/2020 Post-operative state 08/11/2018 09/25/2021 Calcaneal spur, right 05/26/2018 06/28/2018 Colon cancer screening 08/05/2016 7 Unspecified gastritis and ga stroduodenitis without mention of hemorrhage 06/25/2011 12/20/2014 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 Ingrowing nail 06/09/2007 12/20/2014 Benign neoplasm of colon 10/21/2006 015 Hypothyroidism 10/14/2005 09/25/2021 Pure hypercholesterolemia 2010 documented as of this encounter (statuses as of 01/04/2022) [facility]03[facility]22 History of Past illness Narrative* Problem Noted Date Resolved Date Unstable angina 09/26/2021 09/26/2021 Acute bronchitis 09/21/2021 09/24/2021 Unstable angina 09/20/2021 09/25/2021 Hypokalemia 05/19/2020 09/25/2021 Flu-like symptoms 05/19/2020 09/25/2021 Lightheadedness 05/19/2020 09/25/2021 Bilateral pulmonary embolism 05/19/2020 Post-operative state 08/11/2018 09/25/2021 Calcaneal spur, right 05/26/2018 06/28/2018 Colon cancer screening 08/05/2016 7 Unspecified gastritis and ga stroduodenitis without mention of hemorrhage 06/25/2011 12/20/2014 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 Ingrowing nail 06/09/2007 12/20/2014 Benign neoplasm of colon 10/21/2006 015 Hypothyroidism 10/14/2005 09/25/2021 Pure hypercholesterolemia 2010 documented as of this encounter (statuses as of 01/06/2022) [facility]22 History of Past illness Narrative* Problem Noted Date Resolved Date Unstable angina 09/26/2021 09/26/2021 Acute bronchitis 09/21/2021 09/24/2021 Unstable angina 09/20/2021 09/25/2021 Hypokalemia 05/19/2020 09/25/2021 Flu-like symptoms 05/19/2020 09/25/2021 Lightheadedness 05/19/2020 09/25/2021 Bilateral pulmonary embolism 05/19/2020 Post-operative state 08/11/2018 09/25/2021 Calcaneal spur, right 05/26/2018 06/28/2018 Colon cancer screening 08/05/2016 7 Unspecified gastritis and ga stroduodenitis without mention of hemorrhage 06/25/2011 12/20/2014 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 Ingrowing nail 06/09/2007 12/20/2014 Benign neoplasm of colon 10/21/2006 015 Hypothyroidism 10/14/2005 09/25/2021 Pure hypercholesterolemia 2010 documented as of this encounter (statuses as of 01/07/2022) [facility]22 History of Past illness Narrative* Problem Noted Date Resolved Date Unstable angina 09/26/2021 09/26/2021 Acute bronchitis 09/21/2021 09/24/2021 Unstable angina 09/20/2021 09/25/2021 Hypokalemia 05/19/2020 09/25/2021 Flu-like symptoms 05/19/2020 09/25/2021 Lightheadedness 05/19/2020 09/25/2021 Bilateral pulmonary embolism 05/19/2020 Post-operative state 08/11/2018 09/25/2021 Calcaneal spur, right 05/26/2018 06/28/2018 Colon cancer screening 08/05/2016 7 Unspecified gastritis and ga stroduodenitis without mention of hemorrhage 06/25/2011 12/20/2014 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 Ingrowing nail 06/09/2007 12/20/2014 Benign neoplasm of colon 10/21/2006 015 Hypothyroidism 10/14/2005 09/25/2021 Pure hypercholesterolemia 2010 documented as of this encounter (statuses as of 01/11/2022) [facility] History of Past illness Narrative* Problem Noted Date Resolved Date Unstable angina 09/26/2021 09/26/2021 Acute bronchitis 09/21/2021 09/24/2021 Unstable angina 09/20/2021 09/25/2021 Hypokalemia 05/19/2020 09/25/2021 Flu-like symptoms 05/19/2020 09/25/2021 Lightheadedness 05/19/2020 09/25/2021 Bilateral pulmonary embolism 05/19/2020 Post-operative state 08/11/2018 09/25/2021 Calcaneal spur, right 05/26/2018 06/28/2018 Colon cancer screening 08/05/2016 7 Unspecified gastritis and ga stroduodenitis without mention of hemorrhage 06/25/2011 12/20/2014 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 Ingrowing nail 06/09/2007 12/20/2014 Benign neoplasm of colon 10/21/2006 015 Hypothyroidism 10/14/2005 09/25/2021 Pure hypercholesterolemia 2010 documented as of this encounter (statuses as of 01/13/2022) [facility] History of Past illness Narrative* Problem Noted Date Resolved Date Unstable angina 09/26/2021 09/26/2021 Acute bronchitis 09/21/2021 09/24/2021 Unstable angina 09/20/2021 09/25/2021 Hypokalemia 05/19/2020 09/25/2021 Flu-like symptoms 05/19/2020 09/25/2021 Lightheadedness 05/19/2020 09/25/2021 Bilateral pulmonary embolism 05/19/2020 Post-operative state 08/11/2018 09/25/2021 Calcaneal spur, right 05/26/2018 06/28/2018 Colon cancer screening 08/05/2016 7 Unspecified gastritis and ga stroduodenitis without mention of hemorrhage 06/25/2011 12/20/2014 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 Ingrowing nail 06/09/2007 12/20/2014 Benign neoplasm of colon 10/21/2006 015 Hypothyroidism 10/14/2005 09/25/2021 Pure hypercholesterolemia 2010 documented as of this encounter (statuses as of 01/15/2022) [facility] History of Past illness Narrative* Problem Noted Date Resolved Date Unstable angina 09/26/2021 09/26/2021 Acute bronchitis 09/21/2021 09/24/2021 Unstable angina 09/20/2021 09/25/2021 Hypokalemia 05/19/2020 09/25/2021 Flu-like symptoms 05/19/2020 09/25/2021 Lightheadedness 05/19/2020 09/25/2021 Bilateral pulmonary embolism 05/19/2020 Post-operative state 08/11/2018 09/25/2021 Calcaneal spur, right 05/26/2018 06/28/2018 Colon cancer screening 08/05/2016 7 Unspecified gastritis and ga stroduodenitis without mention of hemorrhage 06/25/2011 12/20/2014 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 Ingrowing nail 06/09/2007 12/20/2014 Benign neoplasm of colon 10/21/2006 015 Hypothyroidism 10/14/2005 09/25/2021 Pure hypercholesterolemia 2010 documented as of this encounter (statuses as of 01/20/2022) [facility] History of Past illness Narrative* Problem Noted Date Resolved Date Unstable angina 09/26/2021 09/26/2021 Acute bronchitis 09/21/2021 09/24/2021 Unstable angina 09/20/2021 09/25/2021 Hypokalemia 05/19/2020 09/25/2021 Flu-like symptoms 05/19/2020 09/25/2021 Lightheadedness 05/19/2020 09/25/2021 Bilateral pulmonary embolism 05/19/2020 Post-operative state 08/11/2018 09/25/2021 Calcaneal spur, right 05/26/2018 06/28/2018 Colon cancer screening 08/05/2016 7 Unspecified gastritis and ga stroduodenitis without mention of hemorrhage 06/25/2011 12/20/2014 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 Ingrowing nail 06/09/2007 12/20/2014 Benign neoplasm of colon 10/21/2006 015 Hypothyroidism 10/14/2005 09/25/2021 Pure hypercholesterolemia 2010 documented as of this encounter (statuses as of 02/04/2022) [facility] History of Past illness Narrative* Problem Noted Date Resolved Date Unstable angina 09/26/2021 09/26/2021 Acute bronchitis 09/21/2021 09/24/2021 Unstable angina 09/20/2021 09/25/2021 Hypokalemia 05/19/2020 09/25/2021 Flu-like symptoms 05/19/2020 09/25/2021 Lightheadedness 05/19/2020 09/25/2021 Bilateral pulmonary embolism 05/19/2020 Post-operative state 08/11/2018 09/25/2021 Calcaneal spur, right 05/26/2018 06/28/2018 Colon cancer screening 08/05/2016 7 Unspecified gastritis and ga stroduodenitis without mention of hemorrhage 06/25/2011 12/20/2014 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 Ingrowing nail 06/09/2007 12/20/2014 Benign neoplasm of colon 10/21/2006 015 Hypothyroidism 10/14/2005 09/25/2021 Pure hypercholesterolemia 2010 documented as of this encounter (statuses as of 02/18/2022) [facility] History of Past illness Narrative* Problem Noted Date Resolved Date Unstable angina 09/26/2021 09/26/2021 Acute bronchitis 09/21/2021 09/24/2021 Unstable angina 09/20/2021 09/25/2021 Hypokalemia 05/19/2020 09/25/2021 Flu-like symptoms 05/19/2020 09/25/2021 Lightheadedness 05/19/2020 09/25/2021 Bilateral pulmonary embolism 05/19/2020 Post-operative state 08/11/2018 09/25/2021 Calcaneal spur, right 05/26/2018 06/28/2018 Colon cancer screening 08/05/2016 7 Unspecified gastritis and ga stroduodenitis without mention of hemorrhage 06/25/2011 12/20/2014 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 Ingrowing nail 06/09/2007 12/20/2014 Benign neoplasm of colon 10/21/2006 015 Hypothyroidism 10/14/2005 09/25/2021 Pure hypercholesterolemia 2010 documented as of this encounter (statuses as of 04/02/2022) [facility] History of Past illness Narrative* Problem Noted Date Resolved Date Unstable angina 09/26/2021 09/26/2021 Acute bronchitis 09/21/2021 09/24/2021 Unstable angina 09/20/2021 09/25/2021 Hypokalemia 05/19/2020 09/25/2021 Flu-like symptoms 05/19/2020 09/25/2021 Lightheadedness 05/19/2020 09/25/2021 Bilateral pulmonary embolism 05/19/2020 Post-operative state 08/11/2018 09/25/2021 Calcaneal spur, right 05/26/2018 06/28/2018 Colon cancer screening 08/05/2016 7 Unspecified gastritis and ga stroduodenitis without mention of hemorrhage 06/25/2011 12/20/2014 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 Ingrowing nail 06/09/2007 12/20/2014 Benign neoplasm of colon 10/21/2006 015 Hypothyroidism 10/14/2005 09/25/2021 Pure hypercholesterolemia 2010 documented as of this encounter (statuses as of 04/06/2022) [facility] History of Past illness Narrative* Problem Noted Date Resolved Date Unstable angina 09/26/2021 09/26/2021 Acute bronchitis 09/21/2021 09/24/2021 Unstable angina 09/20/2021 09/25/2021 Hypokalemia 05/19/2020 09/25/2021 Flu-like symptoms 05/19/2020 09/25/2021 Lightheadedness 05/19/2020 09/25/2021 Bilateral pulmonary embolism 05/19/2020 Post-operative state 08/11/2018 09/25/2021 Calcaneal spur, right 05/26/2018 06/28/2018 Colon cancer screening 08/05/2016 7 Unspecified gastritis and ga stroduodenitis without mention of hemorrhage 06/25/2011 12/20/2014 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 Ingrowing nail 06/09/2007 12/20/2014 Benign neoplasm of colon 10/21/2006 015 Hypothyroidism 10/14/2005 09/25/2021 Pure hypercholesterolemia 2010 documented as of this encounter (statuses as of 04/22/2022) [facility] History of Past illness Narrative* Problem Noted Date Resolved Date Unstable angina 09/26/2021 09/26/2021 Acute bronchitis 09/21/2021 09/24/2021 Unstable angina 09/20/2021 09/25/2021 Hypokalemia 05/19/2020 09/25/2021 Flu-like symptoms 05/19/2020 09/25/2021 Lightheadedness 05/19/2020 09/25/2021 Bilateral pulmonary embolism 05/19/2020 Post-operative state 08/11/2018 09/25/2021 Calcaneal spur, right 05/26/2018 06/28/2018 Colon cancer screening 08/05/2016 7 Unspecified gastritis and ga stroduodenitis without mention of hemorrhage 06/25/2011 12/20/2014 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 Ingrowing nail 06/09/2007 12/20/2014 Benign neoplasm of colon 10/21/2006 015 Hypothyroidism 10/14/2005 09/25/2021 Pure hypercholesterolemia 2010 documented as of this encounter (statuses as of 05/03/2022) [facility] History of Past illness Narrative* Problem Noted Date Resolved Date Unstable angina 09/26/2021 09/26/2021 Acute bronchitis 09/21/2021 09/24/2021 Unstable angina 09/20/2021 09/25/2021 Hypokalemia 05/19/2020 09/25/2021 Flu-like symptoms 05/19/2020 09/25/2021 Lightheadedness 05/19/2020 09/25/2021 Bilateral pulmonary embolism 05/19/2020 Post-operative state 08/11/2018 09/25/2021 Calcaneal spur, right 05/26/2018 06/28/2018 Colon cancer screening 08/05/2016 7 Unspecified gastritis and ga stroduodenitis without mention of hemorrhage 06/25/2011 12/20/2014 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 Ingrowing nail 06/09/2007 12/20/2014 Benign neoplasm of colon 10/21/2006 015 Hypothyroidism 10/14/2005 09/25/2021 Pure hypercholesterolemia 2010 documented as of this encounter (statuses as of 05/14/2022) [facility] History of Past illness Narrative* Problem Noted Date Resolved Date Unstable angina 09/26/2021 09/26/2021 Acute bronchitis 09/21/2021 09/24/2021 Unstable angina 09/20/2021 09/25/2021 Hypokalemia 05/19/2020 09/25/2021 Flu-like symptoms 05/19/2020 09/25/2021 Lightheadedness 05/19/2020 09/25/2021 Bilateral pulmonary embolism 05/19/2020 Post-operative state 08/11/2018 09/25/2021 Calcaneal spur, right 05/26/2018 06/28/2018 Colon cancer screening 08/05/2016 7 Unspecified gastritis and ga stroduodenitis without mention of hemorrhage 06/25/2011 12/20/2014 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 Ingrowing nail 06/09/2007 12/20/2014 Benign neoplasm of colon 10/21/2006 015 Hypothyroidism 10/14/2005 09/25/2021 Pure hypercholesterolemia 2010 documented as of this encounter (statuses as of 05/21/2022) [facility] History of Past illness Narrative* Problem Noted Date Resolved Date Unstable angina 09/26/2021 09/26/2021 Acute bronchitis 09/21/2021 09/24/2021 Unstable angina 09/20/2021 09/25/2021 Hypokalemia 05/19/2020 09/25/2021 Flu-like symptoms 05/19/2020 09/25/2021 Lightheadedness 05/19/2020 09/25/2021 Bilateral pulmonary embolism 05/19/2020 Post-operative state 08/11/2018 09/25/2021 Calcaneal spur, right 05/26/2018 06/28/2018 Colon cancer screening 08/05/2016 7 Unspecified gastritis and ga stroduodenitis without mention of hemorrhage 06/25/2011 12/20/2014 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 Ingrowing nail 06/09/2007 12/20/2014 Benign neoplasm of colon 10/21/2006 015 Hypothyroidism 10/14/2005 09/25/2021 Pure hypercholesterolemia 2010 documented as of this encounter (statuses as of 06/08/2022) [facility] History of Past illness Narrative* Problem Noted Date Resolved Date Unstable angina 09/26/2021 09/26/2021 Acute bronchitis 09/21/2021 09/24/2021 Unstable angina 09/20/2021 09/25/2021 Hypokalemia 05/19/2020 09/25/2021 Flu-like symptoms 05/19/2020 09/25/2021 Lightheadedness 05/19/2020 09/25/2021 Bilateral pulmonary embolism 05/19/2020 Post-operative state 08/11/2018 09/25/2021 Calcaneal spur, right 05/26/2018 06/28/2018 Colon cancer screening 08/05/2016 7 Unspecified gastritis and ga stroduodenitis without mention of hemorrhage 06/25/2011 12/20/2014 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 Ingrowing nail 06/09/2007 12/20/2014 Benign neoplasm of colon 10/21/2006 015 Hypothyroidism 10/14/2005 09/25/2021 Pure hypercholesterolemia 2010 documented as of this encounter (statuses as of 06/14/2022) [facility]03-12-[facility]22 History of Past illness Narrative* Problem Noted Date Resolved Date Unstable angina 09/26/2021 09/26/2021 Acute bronchitis 09/21/2021 09/24/2021 Unstable angina 09/20/2021 09/25/2021 Hypokalemia 05/19/2020 09/25/2021 Flu-like symptoms 05/19/2020 09/25/2021 Lightheadedness 05/19/2020 09/25/2021 Bilateral pulmonary embolism 05/19/2020 Post-operative state 08/11/2018 09/25/2021 Calcaneal spur, right 05/26/2018 06/28/2018 Colon cancer screening 08/05/2016 7 Unspecified gastritis and ga stroduodenitis without mention of hemorrhage 06/25/2011 12/20/2014 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 Ingrowing nail 06/09/2007 12/20/2014 Benign neoplasm of colon 10/21/2006 015 Hypothyroidism 10/14/2005 09/25/2021 Pure hypercholesterolemia 2010 documented as of this encounter (statuses as of 06/16/2022) [facility]22 History of Past illness Narrative* Problem Noted Date Resolved Date Unstable angina 09/26/2021 09/26/2021 Acute bronchitis 09/21/2021 09/24/2021 Unstable angina 09/20/2021 09/25/2021 Hypokalemia 05/19/2020 09/25/2021 Flu-like symptoms 05/19/2020 09/25/2021 Lightheadedness 05/19/2020 09/25/2021 Bilateral pulmonary embolism 05/19/2020 Post-operative state 08/11/2018 09/25/2021 Calcaneal spur, right 05/26/2018 06/28/2018 Colon cancer screening 08/05/2016 7 Unspecified gastritis and ga stroduodenitis without mention of hemorrhage 06/25/2011 12/20/2014 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 Ingrowing nail 06/09/2007 12/20/2014 Benign neoplasm of colon 10/21/2006 015 Hypothyroidism 10/14/2005 09/25/2021 Pure hypercholesterolemia 2010 documented as of this encounter (statuses as of 06/29/2022) [facility] History of Past illness Narrative* Problem Noted Date Resolved Date Unstable angina 09/26/2021 09/26/2021 Acute bronchitis 09/21/2021 09/24/2021 Unstable angina 09/20/2021 09/25/2021 Hypokalemia 05/19/2020 09/25/2021 Flu-like symptoms 05/19/2020 09/25/2021 Lightheadedness 05/19/2020 09/25/2021 Bilateral pulmonary embolism 05/19/2020 Post-operative state 08/11/2018 09/25/2021 Calcaneal spur, right 05/26/2018 06/28/2018 Colon cancer screening 08/05/2016 7 Unspecified gastritis and ga stroduodenitis without mention of hemorrhage 06/25/2011 12/20/2014 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 Ingrowing nail 06/09/2007 12/20/2014 Benign neoplasm of colon 10/21/2006 015 Hypothyroidism 10/14/2005 09/25/2021 Pure hypercholesterolemia 2010 documented as of this encounter (statuses as of 07/02/2022) [facility] History of Past illness Narrative* Problem Noted Date Resolved Date Unstable angina 09/26/2021 09/26/2021 Acute bronchitis 09/21/2021 09/24/2021 Unstable angina 09/20/2021 09/25/2021 Hypokalemia 05/19/2020 09/25/2021 Flu-like symptoms 05/19/2020 09/25/2021 Lightheadedness 05/19/2020 09/25/2021 Bilateral pulmonary embolism 05/19/2020 Post-operative state 08/11/2018 09/25/2021 Calcaneal spur, right 05/26/2018 06/28/2018 Colon cancer screening 08/05/2016 7 Unspecified gastritis and ga stroduodenitis without mention of hemorrhage 06/25/2011 12/20/2014 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 Ingrowing nail 06/09/2007 12/20/2014 Benign neoplasm of colon 10/21/2006 015 Hypothyroidism 10/14/2005 09/25/2021 Pure hypercholesterolemia 2010 documented as of this encounter (statuses as of 07/21/2022) [facility] History of Past illness Narrative* Problem Noted Date Resolved Date Unstable angina 09/26/2021 09/26/2021 Acute bronchitis 09/21/2021 09/24/2021 Unstable angina 09/20/2021 09/25/2021 Hypokalemia 05/19/2020 09/25/2021 Flu-like symptoms 05/19/2020 09/25/2021 Lightheadedness 05/19/2020 09/25/2021 Bilateral pulmonary embolism 05/19/2020 Post-operative state 08/11/2018 09/25/2021 Calcaneal spur, right 05/26/2018 06/28/2018 Colon cancer screening 08/05/2016 7 Unspecified gastritis and ga stroduodenitis without mention of hemorrhage 06/25/2011 12/20/2014 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 Ingrowing nail 06/09/2007 12/20/2014 Benign neoplasm of colon 10/21/2006 015 Hypothyroidism 10/14/2005 09/25/2021 Pure hypercholesterolemia 2010 documented as of this encounter (statuses as of 07/27/2022) [facility] History of Past illness Narrative* Problem Noted Date Resolved Date Unstable angina 09/26/2021 09/26/2021 Acute bronchitis 09/21/2021 09/24/2021 Unstable angina 09/20/2021 09/25/2021 Hypokalemia 05/19/2020 09/25/2021 Flu-like symptoms 05/19/2020 09/25/2021 Lightheadedness 05/19/2020 09/25/2021 Bilateral pulmonary embolism 05/19/2020 Post-operative state 08/11/2018 09/25/2021 Calcaneal spur, right 05/26/2018 06/28/2018 Colon cancer screening 08/05/2016 7 Unspecified gastritis and ga stroduodenitis without mention of hemorrhage 06/25/2011 12/20/2014 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 Ingrowing nail 06/09/2007 12/20/2014 Benign neoplasm of colon 10/21/2006 015 Hypothyroidism 10/14/2005 09/25/2021 Pure hypercholesterolemia 2010 documented as of this encounter (statuses as of 07/27/2022) [facility] History of Past illness Narrative* Problem Noted Date Resolved Date Unstable angina 09/26/2021 09/26/2021 Acute bronchitis 09/21/2021 09/24/2021 Unstable angina 09/20/2021 09/25/2021 Hypokalemia 05/19/2020 09/25/2021 Flu-like symptoms 05/19/2020 09/25/2021 Lightheadedness 05/19/2020 09/25/2021 Bilateral pulmonary embolism 05/19/2020 Post-operative state 08/11/2018 09/25/2021 Calcaneal spur, right 05/26/2018 06/28/2018 Colon cancer screening 08/05/2016 7 Unspecified gastritis and ga stroduodenitis without mention of hemorrhage 06/25/2011 12/20/2014 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 Ingrowing nail 06/09/2007 12/20/2014 Benign neoplasm of colon 10/21/2006 015 Hypothyroidism 10/14/2005 09/25/2021 Pure hypercholesterolemia 2010 documented as of this encounter (statuses as of 07/29/2022) [facility] History of Past illness Narrative* Problem Noted Date Resolved Date Unstable angina 09/26/2021 09/26/2021 Acute bronchitis 09/21/2021 09/24/2021 Unstable angina 09/20/2021 09/25/2021 Hypokalemia 05/19/2020 09/25/2021 Flu-like symptoms 05/19/2020 09/25/2021 Lightheadedness 05/19/2020 09/25/2021 Bilateral pulmonary embolism 05/19/2020 Post-operative state 08/11/2018 09/25/2021 Calcaneal spur, right 05/26/2018 06/28/2018 Colon cancer screening 08/05/2016 7 Unspecified gastritis and ga stroduodenitis without mention of hemorrhage 06/25/2011 12/20/2014 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 Ingrowing nail 06/09/2007 12/20/2014 Benign neoplasm of colon 10/21/2006 015 Hypothyroidism 10/14/2005 09/25/2021 Pure hypercholesterolemia 2010 documented as of this encounter (statuses as of 07/30/2022) [facility] History of Past illness Narrative* Problem Noted Date Resolved Date Unstable angina 09/26/2021 09/26/2021 Acute bronchitis 09/21/2021 09/24/2021 Unstable angina 09/20/2021 09/25/2021 Hypokalemia 05/19/2020 09/25/2021 Flu-like symptoms 05/19/2020 09/25/2021 Lightheadedness 05/19/2020 09/25/2021 Bilateral pulmonary embolism 05/19/2020 Post-operative state 08/11/2018 09/25/2021 Calcaneal spur, right 05/26/2018 06/28/2018 Colon cancer screening 08/05/2016 7 Unspecified gastritis and ga stroduodenitis without mention of hemorrhage 06/25/2011 12/20/2014 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 Ingrowing nail 06/09/2007 12/20/2014 Benign neoplasm of colon 10/21/2006 015 Hypothyroidism 10/14/2005 09/25/2021 Pure hypercholesterolemia 2010 documented as of this encounter (statuses as of 08/02/2022) [facility] History of Past illness Narrative* Problem Noted Date Resolved Date Unstable angina 09/26/2021 09/26/2021 Acute bronchitis 09/21/2021 09/24/2021 Unstable angina 09/20/2021 09/25/2021 Hypokalemia 05/19/2020 09/25/2021 Flu-like symptoms 05/19/2020 09/25/2021 Lightheadedness 05/19/2020 09/25/2021 Bilateral pulmonary embolism 05/19/2020 Post-operative state 08/11/2018 09/25/2021 Calcaneal spur, right 05/26/2018 06/28/2018 Colon cancer screening 08/05/2016 7 Unspecified gastritis and ga stroduodenitis without mention of hemorrhage 06/25/2011 12/20/2014 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 Ingrowing nail 06/09/2007 12/20/2014 Benign neoplasm of colon 10/21/2006 015 Hypothyroidism 10/14/2005 09/25/2021 Pure hypercholesterolemia 2010 documented as of this encounter (statuses as of 08/06/2022) [facility] History of Past illness Narrative* Problem Noted Date Resolved Date Unstable angina 09/26/2021 09/26/2021 Acute bronchitis 09/21/2021 09/24/2021 Unstable angina 09/20/2021 09/25/2021 Hypokalemia 05/19/2020 09/25/2021 Flu-like symptoms 05/19/2020 09/25/2021 Lightheadedness 05/19/2020 09/25/2021 Bilateral pulmonary embolism 05/19/2020 Post-operative state 08/11/2018 09/25/2021 Calcaneal spur, right 05/26/2018 06/28/2018 Colon cancer screening 08/05/2016 7 Unspecified gastritis and ga stroduodenitis without mention of hemorrhage 06/25/2011 12/20/2014 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 Ingrowing nail 06/09/2007 12/20/2014 Benign neoplasm of colon 10/21/2006 015 Hypothyroidism 10/14/2005 09/25/2021 Pure hypercholesterolemia 2010 documented as of this encounter (statuses as of 08/10/2022) [facility] History of Past illness Narrative* Problem Noted Date Resolved Date Unstable angina 09/26/2021 09/26/2021 Acute bronchitis 09/21/2021 09/24/2021 Unstable angina 09/20/2021 09/25/2021 Hypokalemia 05/19/2020 09/25/2021 Flu-like symptoms 05/19/2020 09/25/2021 Lightheadedness 05/19/2020 09/25/2021 Bilateral pulmonary embolism 05/19/2020 Post-operative state 08/11/2018 09/25/2021 Calcaneal spur, right 05/26/2018 06/28/2018 Colon cancer screening 08/05/2016 7 Unspecified gastritis and ga stroduodenitis without mention of hemorrhage 06/25/2011 12/20/2014 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 Ingrowing nail 06/09/2007 12/20/2014 Benign neoplasm of colon 10/21/2006 015 Hypothyroidism 10/14/2005 09/25/2021 Pure hypercholesterolemia 2010 documented as of this encounter (statuses as of 08/16/2022) [facility]22 History of Past illness Narrative* Problem Noted Date Resolved Date Unstable angina 09/26/2021 09/26/2021 Acute bronchitis 09/21/2021 09/24/2021 Unstable angina 09/20/2021 09/25/2021 Hypokalemia 05/19/2020 09/25/2021 Flu-like symptoms 05/19/2020 09/25/2021 Lightheadedness 05/19/2020 09/25/2021 Bilateral pulmonary embolism 05/19/2020 Post-operative state 08/11/2018 09/25/2021 Calcaneal spur, right 05/26/2018 06/28/2018 Colon cancer screening 08/05/2016 7 Unspecified gastritis and ga stroduodenitis without mention of hemorrhage 06/25/2011 12/20/2014 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 Ingrowing nail 06/09/2007 12/20/2014 Benign neoplasm of colon 10/21/2006 015 Hypothyroidism 10/14/2005 09/25/2021 Pure hypercholesterolemia 2010 documented as of this encounter (statuses as of 08/23/2022) [facility]22 History of Past illness Narrative* Problem Noted Date Resolved Date Unstable angina 09/26/2021 09/26/2021 Acute bronchitis 09/21/2021 09/24/2021 Unstable angina 09/20/2021 09/25/2021 Hypokalemia 05/19/2020 09/25/2021 Flu-like symptoms 05/19/2020 09/25/2021 Lightheadedness 05/19/2020 09/25/2021 Bilateral pulmonary embolism 05/19/2020 Post-operative state 08/11/2018 09/25/2021 Calcaneal spur, right 05/26/2018 06/28/2018 Colon cancer screening 08/05/2016 7 Unspecified gastritis and ga stroduodenitis without mention of hemorrhage 06/25/2011 12/20/2014 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 Ingrowing nail 06/09/2007 12/20/2014 Benign neoplasm of colon 10/21/2006 015 Hypothyroidism 10/14/2005 09/25/2021 Pure hypercholesterolemia 2010 documented as of this encounter (statuses as of 08/31/2022) [facility] History of Past illness Narrative* Problem Noted Date Resolved Date Unstable angina 09/26/2021 09/26/2021 Acute bronchitis 09/21/2021 09/24/2021 Unstable angina 09/20/2021 09/25/2021 Hypokalemia 05/19/2020 09/25/2021 Flu-like symptoms 05/19/2020 09/25/2021 Lightheadedness 05/19/2020 09/25/2021 Bilateral pulmonary embolism 05/19/2020 Post-operative state 08/11/2018 09/25/2021 Calcaneal spur, right 05/26/2018 06/28/2018 Colon cancer screening 08/05/2016 7 Unspecified gastritis and ga stroduodenitis without mention of hemorrhage 06/25/2011 12/20/2014 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 Ingrowing nail 06/09/2007 12/20/2014 Benign neoplasm of colon 10/21/2006 015 Hypothyroidism 10/14/2005 09/25/2021 Pure hypercholesterolemia 2010 documented as of this encounter (statuses as of 09/01/2022) [facility] History of Past illness Narrative* Problem Noted Date Resolved Date Unstable angina 09/26/2021 09/26/2021 Acute bronchitis 09/21/2021 09/24/2021 Unstable angina 09/20/2021 09/25/2021 Hypokalemia 05/19/2020 09/25/2021 Flu-like symptoms 05/19/2020 09/25/2021 Lightheadedness 05/19/2020 09/25/2021 Bilateral pulmonary embolism 05/19/2020 Post-operative state 08/11/2018 09/25/2021 Calcaneal spur, right 05/26/2018 06/28/2018 Colon cancer screening 08/05/2016 7 Unspecified gastritis and ga stroduodenitis without mention of hemorrhage 06/25/2011 12/20/2014 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 Ingrowing nail 06/09/2007 12/20/2014 Benign neoplasm of colon 10/21/2006 015 Hypothyroidism 10/14/2005 09/25/2021 Pure hypercholesterolemia 2010 documented as of this encounter (statuses as of 09/02/2022) [facility] History of Past illness Narrative* Problem Noted Date Resolved Date Unstable angina 09/26/2021 09/26/2021 Acute bronchitis 09/21/2021 09/24/2021 Unstable angina 09/20/2021 09/25/2021 Hypokalemia 05/19/2020 09/25/2021 Flu-like symptoms 05/19/2020 09/25/2021 Lightheadedness 05/19/2020 09/25/2021 Bilateral pulmonary embolism 05/19/2020 Post-operative state 08/11/2018 09/25/2021 Calcaneal spur, right 05/26/2018 06/28/2018 Colon cancer screening 08/05/2016 7 Unspecified gastritis and ga stroduodenitis without mention of hemorrhage 06/25/2011 12/20/2014 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 Ingrowing nail 06/09/2007 12/20/2014 Benign neoplasm of colon 10/21/2006 015 Hypothyroidism 10/14/2005 09/25/2021 Pure hypercholesterolemia 2010 documented as of this encounter (statuses as of 09/06/2022) [facility] History of Past illness Narrative* Problem Noted Date Resolved Date Unstable angina 09/26/2021 09/26/2021 Acute bronchitis 09/21/2021 09/24/2021 Unstable angina 09/20/2021 09/25/2021 Hypokalemia 05/19/2020 09/25/2021 Flu-like symptoms 05/19/2020 09/25/2021 Lightheadedness 05/19/2020 09/25/2021 Bilateral pulmonary embolism 05/19/2020 Post-operative state 08/11/2018 09/25/2021 Calcaneal spur, right 05/26/2018 06/28/2018 Colon cancer screening 08/05/2016201 7 Unspecified gastritis and ga stroduodenitis without mention of hemorrhage 06/25/2011 12/20/2014 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 Ingrowing nail 06/09/2007 12/20/2014 Benign neoplasm of colon 10/21/2006 015 Hypothyroidism 10/14/2005 09/25/2021 Pure hypercholesterolemia 2010 documented as of this encounter (statuses as of 09/17/2022) [facility] History of Past illness Narrative* Problem Noted Date Resolved Date Unstable angina 09/26/2021 09/26/2021 Acute bronchitis 09/21/2021 09/24/2021 Unstable angina 09/20/2021 09/25/2021 Hypokalemia 05/19/2020 09/25/2021 Flu-like symptoms 05/19/2020 09/25/2021 Lightheadedness 05/19/2020 09/25/2021 Bilateral pulmonary embolism 05/19/2020 Post-operative state 08/11/2018 09/25/2021 Calcaneal spur, right 05/26/2018 06/28/2018 Colon cancer screening 08/05/2016 7 Unspecified gastritis and ga stroduodenitis without mention of hemorrhage 06/25/2011 12/20/2014 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 Ingrowing nail 06/09/2007 12/20/2014 Benign neoplasm of colon 10/21/2006 015 Hypothyroidism 10/14/2005 09/25/2021 Pure hypercholesterolemia 2010 documented as of this encounter (statuses as of 10/11/2022) [facility] History of Past illness Narrative* Problem Noted Date Resolved Date Unstable angina 09/26/2021 09/26/2021 Acute bronchitis 09/21/2021 09/24/2021 Unstable angina 09/20/2021 09/25/2021 Hypokalemia 05/19/2020 09/25/2021 Flu-like symptoms 05/19/2020 09/25/2021 Lightheadedness 05/19/2020 09/25/2021 Bilateral pulmonary embolism 05/19/2020 Post-operative state 08/11/2018 09/25/2021 Calcaneal spur, right 05/26/2018 06/28/2018 Colon cancer screening 08/05/2016 7 Unspecified gastritis and ga stroduodenitis without mention of hemorrhage 06/25/2011 12/20/2014 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 Ingrowing nail 06/09/2007 12/20/2014 Benign neoplasm of colon 10/21/2006 015 Hypothyroidism 10/14/2005 09/25/2021 Pure hypercholesterolemia 2010 documented as of this encounter (statuses as of 10/12/2022) [facility] History of Past illness Narrative* Problem Noted Date Resolved Date Unstable angina 09/26/2021 09/26/2021 Acute bronchitis 09/21/2021 09/24/2021 Unstable angina 09/20/2021 09/25/2021 Hypokalemia 05/19/2020 09/25/2021 Flu-like symptoms 05/19/2020 09/25/2021 Lightheadedness 05/19/2020 09/25/2021 Bilateral pulmonary embolism 05/19/2020 Post-operative state 08/11/2018 09/25/2021 Calcaneal spur, right 05/26/2018 06/28/2018 Colon cancer screening 08/05/2016 7 Unspecified gastritis and ga stroduodenitis without mention of hemorrhage 06/25/2011 12/20/2014 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 Ingrowing nail 06/09/2007 12/20/2014 Benign neoplasm of colon 10/21/2006 015 Hypothyroidism 10/14/2005 09/25/2021 Pure hypercholesterolemia 2010 documented as of this encounter (statuses as of 10/27/2022) [facility] History of Past illness Narrative* Problem Noted Date Resolved Date Unstable angina 09/26/2021 09/26/2021 Acute bronchitis 09/21/2021 09/24/2021 Unstable angina 09/20/2021 09/25/2021 Hypokalemia 05/19/2020 09/25/2021 Flu-like symptoms 05/19/2020 09/25/2021 Lightheadedness 05/19/2020 09/25/2021 Bilateral pulmonary embolism 05/19/2020 Post-operative state 08/11/2018 09/25/2021 Calcaneal spur, right 05/26/2018 06/28/2018 Colon cancer screening 08/05/2016 7 Unspecified gastritis and ga stroduodenitis without mention of hemorrhage 06/25/2011 12/20/2014 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 Ingrowing nail 06/09/2007 12/20/2014 Benign neoplasm of colon 10/21/2006 015 Hypothyroidism 10/14/2005 09/25/2021 Pure hypercholesterolemia 2010 documented as of this encounter (statuses as of 10/29/2022) [facility] History of Past illness Narrative* Problem Noted Date Resolved Date Unstable angina 09/26/2021 09/26/2021 Acute bronchitis 09/21/2021 09/24/2021 Unstable angina 09/20/2021 09/25/2021 Hypokalemia 05/19/2020 09/25/2021 Flu-like symptoms 05/19/2020 09/25/2021 Lightheadedness 05/19/2020 09/25/2021 Bilateral pulmonary embolism 05/19/2020 Post-operative state 08/11/2018 09/25/2021 Calcaneal spur, right 05/26/2018 06/28/2018 Colon cancer screening 08/05/2016 7 Unspecified gastritis and ga stroduodenitis without mention of hemorrhage 06/25/2011 12/20/2014 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 Ingrowing nail 06/09/2007 12/20/2014 Benign neoplasm of colon 10/21/2006 015 Hypothyroidism 10/14/2005 09/25/2021 Pure hypercholesterolemia 2010 documented as of this encounter (statuses as of 10/29/2022) [facility] History of Past illness Narrative* Problem Noted Date Resolved Date Unstable angina 09/26/2021 09/26/2021 Acute bronchitis 09/21/2021 09/24/2021 Unstable angina 09/20/2021 09/25/2021 Hypokalemia 05/19/2020 09/25/2021 Flu-like symptoms 05/19/2020 09/25/2021 Lightheadedness 05/19/2020 09/25/2021 Bilateral pulmonary embolism 05/19/2020 Post-operative state 08/11/2018 09/25/2021 Calcaneal spur, right 05/26/2018 06/28/2018 Colon cancer screening 08/05/2016 7 Unspecified gastritis and ga stroduodenitis without mention of hemorrhage 06/25/2011 12/20/2014 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 Ingrowing nail 06/09/2007 12/20/2014 Benign neoplasm of colon 10/21/2006 015 Hypothyroidism 10/14/2005 09/25/2021 Pure hypercholesterolemia 2010 documented as of this encounter (statuses as of 11/08/2022) [facility] History of Past illness Narrative* Problem Noted Date Resolved Date Unstable angina 09/26/2021 09/26/2021 Acute bronchitis 09/21/2021 09/24/2021 Unstable angina 09/20/2021 09/25/2021 Malnutrition of mild degree 05/20/2020 042 02/2023 Hypokalemia 05/19/2020 09/25/2021 Flu-like symptoms 05/19/2020 09/25/2021 Lightheadedness 05/19/2020 09/25/2021 Bilateral pulmonary embolism 05/19/2020 Post-operative state 08/11/2018 09/25/2021 Calcaneal spur, right 05/26/2018 06/28/2018 Colon cancer screening 08/05/2016 7 Unspecified gastritis and ga stroduodenitis without mention of hemorrhage 06/25/2011 12/20/2014 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 Ingrowing nail 06/09/2007 12/20/2014 Benign neoplasm of colon 10/21/2006 015 Hypothyroidism 10/14/2005 09/25/2021 Pure hypercholesterolemia 2010 documented as of this encounter (statuses as of 11/12/2022) [facility] History of Past illness Narrative* Problem Noted Date Resolved Date Unstable angina 09/26/2021 09/26/2021 Acute bronchitis 09/21/2021 09/24/2021 Unstable angina 09/20/2021 09/25/2021 Malnutrition of mild degree 05/20/2020 042 02/2023 Hypokalemia 05/19/2020 09/25/2021 Flu-like symptoms 05/19/2020 09/25/2021 Lightheadedness 05/19/2020 09/25/2021 Bilateral pulmonary embolism 05/19/2020 Post-operative state 08/11/2018 09/25/2021 Calcaneal spur, right 05/26/2018 06/28/2018 Colon cancer screening 08/05/2016 7 Unspecified gastritis and ga stroduodenitis without mention of hemorrhage 06/25/2011 12/20/2014 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 Ingrowing nail 06/09/2007 12/20/2014 Benign neoplasm of colon 10/21/2006 015 Hypothyroidism 10/14/2005 09/25/2021 Pure hypercholesterolemia 2010 documented as of this encounter (statuses as of 11/16/2022) [facility] History of Past illness Narrative* Problem Noted Date Resolved Date Unstable angina 09/26/2021 09/26/2021 Acute bronchitis 09/21/2021 09/24/2021 Unstable angina 09/20/2021 09/25/2021 Malnutrition of mild degree 05/20/2020 042 02/2023 Hypokalemia 05/19/2020 09/25/2021 Flu-like symptoms 05/19/2020 09/25/2021 Lightheadedness 05/19/2020 09/25/2021 Bilateral pulmonary embolism 05/19/2020 Post-operative state 08/11/2018 09/25/2021 Calcaneal spur, right 05/26/2018 06/28/2018 Colon cancer screening 08/05/2016 7 Unspecified gastritis and ga stroduodenitis without mention of hemorrhage 06/25/2011 12/20/2014 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 Ingrowing nail 06/09/2007 12/20/2014 Benign neoplasm of colon 10/21/2006 015 Hypothyroidism 10/14/2005 09/25/2021 Pure hypercholesterolemia 2010 documented as of this encounter (statuses as of 11/30/2022) [facility] History of Past illness Narrative* Problem Noted Date Diagnosed Date Resolved Date Unstable angina 09/26/2021 09/26/2021 Acute bronchitis 09/21/2021 09/24/2021 Unstable angina 09/20/2021 09/25/2021 Malnutrition of mild degree 05/20/2020 11/12/2022 Hypokalemia 05/19/2020 09/25/2021 Flu-like symptoms 05/19/2020 09/25/2021 Lightheadedness 05/19/2020 09/25/2021 Bilateral pulmonary embolism 05/19/2020 10/06/2021 Post-operative state 08/11/2018 022 Calcaneal spur, right 05/26/20182017 Colon cancer screening 08/05/201608/05 Unspecified gastritis and ga stroduodenitis without mention of hemorrhage 06/25/2011 12/20/2014 Benign neoplasm of rectum and anal canal 06/25/2011 12/20/2014 Ingrowing nail 06/09/2007 12/20/2014 Benign neoplasm of colon 10/21/200611/2014 Hypothyroidism 10/14/2005 09/25/2021 Pure hypercholesterolemia documented as of this encounter (statuses as of 02/10/2023) [facility]03-12-2022 History of Past illness Narrative* Problem Noted Date Diagnosed Date Resolved Date Unstable angina 09/26/2021 09/26/2021 Acute bronchitis 09/21/2021 09/24/2021 Unstable angina 09/20/2021 09/25/2021 Malnutrition of mild degree 05/20/2020 11/12/2022 Hypokalemia 05/19/2020 09/25/2021 Flu-like symptoms 05/19/2020 09/25/2021 Lightheadedness 05/19/2020 09/25/2021 Bilateral pulmonary embolism 05/19/2020 10/06/2021 Post-operative state 08/11/2018 022 Calcaneal spur, right 05/26/20182017 Colon cancer screening 08/05/201608/05 Unspecified gastritis and ga stroduodenitis without mention of hemorrhage 06/25/2011 12/20/2014 Benign neoplasm of rectum and anal canal 06/25/2011 12/20/2014 Ingrowing nail 06/09/2007 12/20/2014 Benign neoplasm of colon 10/21/200611/2014 Hypothyroidism 10/14/2005 09/25/2021 Pure hypercholesterolemia documented as of this encounter (statuses as of 02/12/2023) [facility]03-12-2022 History of Past illness Narrative* Problem Noted Date Diagnosed Date Resolved Date Unstable angina 09/26/2021 09/26/2021 Acute bronchitis 09/21/2021 09/24/2021 Unstable angina 09/20/2021 09/25/2021 Malnutrition of mild degree 05/20/2020 11/12/2022 Hypokalemia 05/19/2020 09/25/2021 Flu-like symptoms 05/19/2020 09/25/2021 Lightheadedness 05/19/2020 09/25/2021 Bilateral pulmonary embolism 05/19/2020 10/06/2021 Post-operative state 08/11/2018 022 Calcaneal spur, right 05/26/20182017 Colon cancer screening 08/05/201608/05 Unspecified gastritis and ga stroduodenitis without mention of hemorrhage 06/25/2011 12/20/2014 Benign neoplasm of rectum and anal canal 06/25/2011 12/20/2014 Ingrowing nail 06/09/2007 12/20/2014 Benign neoplasm of colon 10/21/200611/2014 Hypothyroidism 10/14/2005 09/25/2021 Pure hypercholesterolemia documented as of this encounter (statuses as of 04/29/2023) [facility]03-12[facility]2022 History of Past illness Narrative* Problem Noted Date Diagnosed Date Resolved Date Unstable angina 09/26/2021 09/26/2021 Acute bronchitis 09/21/2021 09/24/2021 Unstable angina 09/20/2021 09/25/2021 Malnutrition of mild degree 05/20/2020 11/12/2022 Hypokalemia 05/19/2020 09/25/2021 Flu-like symptoms 05/19/2020 09/25/2021 Lightheadedness 05/19/2020 09/25/2021 Bilateral pulmonary embolism 05/19/2020 10/06/2021 Post-operative state 08/11/2018 022 Calcaneal spur, right 05/26/20182017 Colon cancer screening 08/05/201608/05 Unspecified gastritis and ga stroduodenitis without mention of hemorrhage 06/25/2011 12/20/2014 Benign neoplasm of rectum and anal canal 06/25/2011 12/20/2014 Ingrowing nail 06/09/2007 12/20/2014 Benign neoplasm of colon 10/21/200611/2014 Hypothyroidism 10/14/2005 09/25/2021 Pure hypercholesterolemia documented as of this encounter (statuses as of 05/13/2023) [facility]03-12[facility]2022 History of Past illness Narrative* Problem Noted Date Diagnosed Date Resolved Date Unstable angina 09/26/2021 09/26/2021 Acute bronchitis 09/21/2021 09/24/2021 Unstable angina 09/20/2021 09/25/2021 Malnutrition of mild degree 05/20/2020 11/12/2022 Hypokalemia 05/19/2020 09/25/2021 Flu-like symptoms 05/19/2020 09/25/2021 Lightheadedness 05/19/2020 09/25/2021 Bilateral pulmonary embolism 05/19/2020 10/06/2021 Post-operative state 08/11/2018 022 Calcaneal spur, right 05/26/20182017 Colon cancer screening 08/05/201608/05 Unspecified gastritis and ga stroduodenitis without mention of hemorrhage 06/25/2011 12/20/2014 Benign neoplasm of rectum and anal canal 06/25/2011 12/20/2014 Ingrowing nail 06/09/2007 12/20/2014 Benign neoplasm of colon 10/21/200611/2014 Hypothyroidism 10/14/2005 09/25/2021 Pure hypercholesterolemia documented as of this encounter (statuses as of 05/14/2023) [facility]03[facility]12[facility]2022 History of Past illness Narrative* Problem Noted Date Diagnosed Date Resolved Date Unstable angina 09/26/2021 09/26/2021 Acute bronchitis 09/21/2021 09/24/2021 Unstable angina 09/20/2021 09/25/2021 Malnutrition of mild degree 05/20/2020 11/12/2022 Hypokalemia 05/19/2020 09/25/2021 Flu-like symptoms 05/19/2020 09/25/2021 Lightheadedness 05/19/2020 09/25/2021 Bilateral pulmonary embolism 05/19/2020 10/06/2021 Post-operative state 08/11/2018 022 Calcaneal spur, right 05/26/20182017 Colon cancer screening 08/05/201608/05 Unspecified gastritis and ga stroduodenitis without mention of hemorrhage 06/25/2011 12/20/2014 Benign neoplasm of rectum and anal canal 06/25/2011 12/20/2014 Ingrowing nail 06/09/2007 12/20/2014 Benign neoplasm of colon 10/21/200611/2014 Hypothyroidism 10/14/2005 09/25/2021 Pure hypercholesterolemia documented as of this encounter (statuses as of 05/21/2023) [facility]03[facility]2022 History of Past illness Narrative* Problem Noted Date Diagnosed Date Resolved Date Unstable angina 09/26/2021 09/26/2021 Acute bronchitis 09/21/2021 09/24/2021 Unstable angina 09/20/2021 09/25/2021 Malnutrition of mild degree 05/20/2020 11/12/2022 Hypokalemia 05/19/2020 09/25/2021 Flu-like symptoms 05/19/2020 09/25/2021 Lightheadedness 05/19/2020 09/25/2021 Bilateral pulmonary embolism 05/19/2020 10/06/2021 Post-operative state 08/11/2018 022 Calcaneal spur, right 05/26/20182017 Colon cancer screening 08/05/201608/05 Unspecified gastritis and ga stroduodenitis without mention of hemorrhage 06/25/2011 12/20/2014 Benign neoplasm of rectum and anal canal 06/25/2011 12/20/2014 Ingrowing nail 06/09/2007 12/20/2014 Benign neoplasm of colon 10/21/200611/2014 Hypothyroidism 10/14/2005 09/25/2021 Pure hypercholesterolemia documented as of this encounter (statuses as of 06/10/2023) [facility]03[facility]12[facility]2022 History of Past illness Narrative* Problem Noted Date Diagnosed Date Resolved Date Unstable angina 09/26/2021 09/26/2021 Acute bronchitis 09/21/2021 09/24/2021 Unstable angina 09/20/2021 09/25/2021 Malnutrition of mild degree 05/20/2020 11/12/2022 Hypokalemia 05/19/2020 09/25/2021 Flu-like symptoms 05/19/2020 09/25/2021 Lightheadedness 05/19/2020 09/25/2021 Bilateral pulmonary embolism 05/19/2020 10/06/2021 Post-operative state 08/11/2018 022 Calcaneal spur, right 05/26/20182017 Colon cancer screening 08/05/201608/05 Unspecified gastritis and ga stroduodenitis without mention of hemorrhage 06/25/2011 12/20/2014 Benign neoplasm of rectum and anal canal 06/25/2011 12/20/2014 Ingrowing nail 06/09/2007 12/20/2014 Benign neoplasm of colon 10/21/200611/2014 Hypothyroidism 10/14/2005 09/25/2021 Pure hypercholesterolemia documented as of this encounter (statuses as of 06/10/2023) [facility] History of Past illness Narrative* Problem Noted Date Diagnosed Date Resolved Date Unstable angina 09/26/2021 09/26/2021 Acute bronchitis 09/21/2021 09/24/2021 Unstable angina 09/20/2021 09/25/2021 Malnutrition of mild degree 05/20/2020 11/12/2022 Hypokalemia 05/19/2020 09/25/2021 Flu-like symptoms 05/19/2020 09/25/2021 Lightheadedness 05/19/2020 09/25/2021 Bilateral pulmonary embolism 05/19/2020 10/06/2021 Post-operative state 08/11/2018 022 Calcaneal spur, right 05/26/20182017 Colon cancer screening 08/05/201608/05 Unspecified gastritis and ga stroduodenitis without mention of hemorrhage 06/25/2011 12/20/2014 Benign neoplasm of rectum and anal canal 06/25/2011 12/20/2014 Ingrowing nail 06/09/2007 12/20/2014 Benign neoplasm of colon 10/21/200611/2014 Hypothyroidism 10/14/2005 09/25/2021 Pure hypercholesterolemia documented as of this encounter (statuses as of 09/07/2023) [facility]03[facility]12[facility]22 History of Past illness Narrative* Problem Noted Date Diagnosed Date Resolved Date Unstable angina 09/26/2021 09/26/2021 Acute bronchitis 09/21/2021 09/24/2021 Unstable angina 09/20/2021 09/25/2021 Malnutrition of mild degree 05/20/2020 11/12/2022 Hypokalemia 05/19/2020 09/25/2021 Flu-like symptoms 05/19/2020 09/25/2021 Lightheadedness 05/19/2020 09/25/2021 Bilateral pulmonary embolism 05/19/2020 10/06/2021 Post-operative state 08/11/2018 022 Calcaneal spur, right 05/26/20182017 Colon cancer screening 08/05/201608/05 Unspecified gastritis and ga stroduodenitis without mention of hemorrhage 06/25/2011 12/20/2014 Benign neoplasm of rectum and anal canal 06/25/2011 12/20/2014 Ingrowing nail 06/09/2007 12/20/2014 Benign neoplasm of colon 10/21/200611/2014 Hypothyroidism 10/14/2005 09/25/2021 Pure hypercholesterolemia documented as of this encounter (statuses as of 09/08/2023) [facility]03[facility]12[facility]22 History of Past illness Narrative* Problem Noted Date Diagnosed Date Resolved Date Unstable angina 09/26/2021 09/26/2021 Acute bronchitis 09/21/2021 09/24/2021 Unstable angina 09/20/2021 09/25/2021 Malnutrition of mild degree 05/20/2020 11/12/2022 Hypokalemia 05/19/2020 09/25/2021 Flu-like symptoms 05/19/2020 09/25/2021 Lightheadedness 05/19/2020 09/25/2021 Bilateral pulmonary embolism 05/19/2020 10/06/2021 Post-operative state 08/11/2018 022 Calcaneal spur, right 05/26/20182017 Colon cancer screening 08/05/201608/05 Unspecified gastritis and ga stroduodenitis without mention of hemorrhage 06/25/2011 12/20/2014 Benign neoplasm of rectum and anal canal 06/25/2011 12/20/2014 Ingrowing nail 06/09/2007 12/20/2014 Benign neoplasm of colon 10/21/200611/2014 Hypothyroidism 10/14/2005 09/25/2021 Pure hypercholesterolemia documented as of this encounter (statuses as of 09/09/2023) [facility]12[facility]2022 History of Past illness Narrative* Problem Noted Date Diagnosed Date Resolved Date Unstable angina 09/26/2021 09/26/2021 Acute bronchitis 09/21/2021 09/24/2021 Unstable angina 09/20/2021 09/25/2021 Malnutrition of mild degree 05/20/2020 11/12/2022 Hypokalemia 05/19/2020 09/25/2021 Flu-like symptoms 05/19/2020 09/25/2021 Lightheadedness 05/19/2020 09/25/2021 Bilateral pulmonary embolism 05/19/2020 10/06/2021 Post-operative state 08/11/2018 022 Calcaneal spur, right 05/26/20182017 Colon cancer screening 08/05/201608/05 Unspecified gastritis and ga stroduodenitis without mention of hemorrhage 06/25/2011 12/20/2014 Benign neoplasm of rectum and anal canal 06/25/2011 12/20/2014 Ingrowing nail 06/09/2007 12/20/2014 Benign neoplasm of colon 10/21/200611/2014 Hypothyroidism 10/14/2005 09/25/2021 Pure hypercholesterolemia documented as of this encounter (statuses as of 10/03/2023) [facility]03[facility]12[facility]2022 History of Past illness Narrative* Problem Noted Date Diagnosed Date Resolved Date Unstable angina 09/26/2021 09/26/2021 Acute bronchitis 09/21/2021 09/24/2021 Unstable angina 09/20/2021 09/25/2021 Malnutrition of mild degree 05/20/2020 11/12/2022 Hypokalemia 05/19/2020 09/25/2021 Flu-like symptoms 05/19/2020 09/25/2021 Lightheadedness 05/19/2020 09/25/2021 Bilateral pulmonary embolism 05/19/2020 10/06/2021 Post-operative state 08/11/2018 022 Calcaneal spur, right 05/26/20182017 Colon cancer screening 08/05/201608/05 Unspecified gastritis and ga stroduodenitis without mention of hemorrhage 06/25/2011 12/20/2014 Benign neoplasm of rectum and anal canal 06/25/2011 12/20/2014 Ingrowing nail 06/09/2007 12/20/2014 Benign neoplasm of colon 10/21/200611/2014 Hypothyroidism 10/14/2005 09/25/2021 Pure hypercholesterolemia documented as of this encounter (statuses as of 10/04/2023) [facility]03-11-2022 NoteHNO ID: [id number] Author: Philomena Carrero (EpiGaN) Service: ? Author Type: ? Type: Plan of Care Filed: 09/25/2021 5:06 PM Note Text: PHARMACY BEDSIDE DELIVERY SERVICE Patient Name: Lorenzo Reis The marked outpatient medications were Filled at: [facility] and delivered to the patient's bedside to [facility]- Medication List CONTINUE taking these medications BRILINTA 90 mg tablet Generic drug: ticagrelor Take 1 tablet by mouth twice daily. You might also be taking other medications not listed above. If you have questions about any of your other medications, talk to the person who prescribed them or your Primary Care Provider. Philomena Carrero (EpiGaN) PAGER: [phone] September 25, 2021 5:06 [facility]03-11-2022 NoteHNO ID: [id number] Author: Philomena Carrero (EpiGaN) Service: ? Author Type: ? Type: Plan of Care Filed: 09/25/2021 5:06 PM Note Text: INFRASTRUCTURE MANAGER BEDSIDE DELIVERY SURVEY 1. Patient to use [facility] Bedside Delivery - YES Insurance Information as follows: 2. Insurance card on file - YES 3. Credit card for payment - N/A Pharmacy Discharge Medication Service: This patient has elected to receive their discharge prescriptions through the [facility] Bedside Prescription Delivery program. The prescriptions are currently being processed. A follow-up note will be entered once the prescriptions have been filled and delivered to the patient. Please contact me with any questions or updates to the patient's discharge medications. Philomena Carrero ([employer]piGaN) DCT Contact Info: [id number] [facility] Medical [id number] NoteHNO ID: [id number] Author: Javi Gramajo MD Service: Hospital Medicine Author Type: Physician Type: Progress Notes Filed: 10/01/2021 11:09 AM Note Text: DEPARTMENT OF HOSPITAL MEDICINE PROGRESS NOTE SERVICE DATE: 09/25/2021 SERVICE TIME: 2:02 PM Hospital Medicine/Primary Attending: Dr. Javi Gramajo NIGHT AND WEEKEND COVERAGE: [employer] COVERAGE:TEAM 2: , please call Team 2 pager [phone]. [id number], please call [facility] Night Coverage pager [phone]) for Teams 1, 2, AND 3 Subjective INTERVAL HPI: Patient denies any overnight events MEDICATIONS: Reviewed Objective PHYSICAL EXAM: BP 96/57 Pulse 55 Temp (Src) 97.7 (Oral) Resp 18 Wt 205 lb 6 oz (93.2kg) SpO2 94% O2 Therapy: Room Air Physical Exam Performed GENERAL: Alert, no distress, cooperative LUNGS: Lungs clear to auscultation CARDIAC: Normal S1 and S2; no rubs, murmurs, or gallops, no signs of fluid overload ABDOMEN: Abdomen soft, non-tender, BS normal EXTREMITIES: no peripheral edema, good peripheral perfusion NEURO: A/O 3 x, grossly normal cognition, normal motor function on upper and lower extremities Lines, Drains, and Airways Line Peripheral 09/20/21 1545 Assessment Short Right Antecubital 20 Gauge 4 days Reviewed lines and needs to be continued: REASONS: medications DATA: Diagnostic tests reviewed for today's visit: Most recent labs and imaging results. Most recent EKG Assessment/Plan Lorenzo Reis is a 66 y/o male with PMHx significant for HLD, BPH, Hypothyroidism, Hx of PE 2 years ago, tobacco use disorder. Approximate 3 weeks ago the pt states he began to have cold sweats, productive cough with greenish sputum, cold sweats, lightheadedness, and chest pressure/tightness on exertion. Pt went to urgent care on 09/16 for these symptoms and was treated for acute bronchitis with doxycycline. He went home and the coughing continued to get worse and the pressure in his chest started to happen at rest. Pt says he was coughing so much and so hard that he thought he was going to pass out. This brought him to the [facility] on 09/20/2021. EKG showed NSR without acute ischemic changes. Tropin T < 0.010 x 3. Pt underwent left heart cath on 09/22/2021 which showed mid RCA 85% stenosis and Cx OM 1 with 90% stenosis. Pt was then transferred to [facility] on 09/22/2021 for stent placement. On 09/23 underwent placement of AUBREY on OM1 and LCX. # Unstable Angina # Chest pain, resolved - On admission patient was complaining about chest tightness which was atypical for angina - The patient has several cardiac risk factors like current smoker, hyperlipidemia, hypertension, obesity, strong family history of early coronary artery disease - On admission KAMERON risk 5 - high risk - Pt underwent left heart cath OSH 09/20/2021 showing 3 stenotic vessels prompting transfer to [facility] for community outreach specialist to do stent placement (severe disease circ OM1 and RCA) - LCX and OM1 AUBREY placed on 09/23, overlapping, involving bifurcation, s/p RCA stenting 09/24 - ECHO: normal LV function, EF 60%, dilated aorta 4.2cm, no sig valvular abnormality. 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 We believe that viral etiology is most likely in this case, unlikely to be caused by bacterial infection. Plan - continue with supportive care: Albuterol q 6 hrs prn, robitussin 10 mL q 4 hr prn - No need of antibiotics as of now # BPH (benign prostatic hyperplasia) - continue finasteride 5 mg daily # Acquired hypothyroidism - Continue levothyroxzine 175 mcg # Hyperlipidemia - Continue atorvastatin 80 mg at bedtime Medication and Non-Pharmacologic VTE Prophylaxis/Anticoagulants Anticoagulant AND Antiplatelet Medications (From admission, onward) Start Dose Route Frequency Last Action Ordered Stop 09/23/21899 aspirin 81 mg chewable tab(s) 81 mg ORAL DAILY Given, 09/26 85509/22/211916 -- 09/23/21899 ticagrelor 90 mg tab(s) (BRILINTA) 90 mg ORAL 2 TIMES DAILY Given, 09/25 90609/22/211916 -- 09/22/211914 vte [place] 09/22/211914 activity - mobilize patient ([place], [place]) VTE Prophylaxis: Disposition: Home when ready for discharge Plan of care discussed with: Provider, RN, Patient SIGNATURE: MD HIGINIO Stoddard (more content not included)...[facility] [id number] NoteHNO ID: [id number] Author: Kirsten GOEL Service: Care Management Author Type: ? Type: Care Mgt Progress Note Filed: 09/25/2021 11:14 AM Note Text: CARE MANAGEMENT PROGRESS NOTE SERVICE DATE: 09/25/2021 SERVICE TIME: 1113 LOS: 3 days IMM Follow Up Copy Given: Yes Copy given to:: Patient Method: By Phone SIGNATURE: Kirsten GOEL PATIENT NAME: Lorenzo Reis DATE: September 25, 2021 TIME: 11:14 AM PAGER/CONTACT #: [phone] [id number] NoteHNO ID: [id number] Author: Javi Gramajo MD Service: Hospital Medicine Author Type: Physician Type: Progress Notes Filed: 10/01/2021 11:08 AM Note Text: DEPARTMENT OF HOSPITAL MEDICINE PROGRESS NOTE SERVICE DATE: 09/24/2021 SERVICE TIME: 8:03 AM Hospital Medicine/Primary Attending: Dr. Javi Gramajo NIGHT AND WEEKEND COVERAGE: [employer] COVERAGE:TEAM 2: [id number], please call Team 2 pager [phone]. [id number], please call [facility] Night Coverage pager [phone]) for Teams 1, 2, AND 3 Subjective INTERVAL HPI: Patient denies any overnight events no recurrent chest pain or shortness of breath An EKG was done this morning showed only sinus bradycardia Patient was in good spirits did not have any new complaints MEDICATIONS: Reviewed Objective PHYSICAL EXAM: BP 127/76 Pulse 50 Temp (Src) 98.1 (Oral) Resp 18 Wt 205 lb 6 oz (93.2kg) SpO2 95% O2 Therapy: Room Air Physical Exam Performed GENERAL: Alert, no distress, cooperative LUNGS: Lungs clear to auscultation CARDIAC: Normal S1 and S2; no rubs, murmurs, or gallops, no signs of fluid overload ABDOMEN: Abdomen soft, non-tender, BS normal EXTREMITIES: no peripheral edema, good peripheral perfusion NEURO: A/O 3 x, grossly normal cognition, normal motor function on upper and lower extremities Lines, Drains, and Airways Line Peripheral 09/20/21 1545 Assessment Short Right Antecubital 20 Gauge 3 days Reviewed lines and needs to be continued: REASONS: medications DATA: Diagnostic tests reviewed for today's visit: Most recent labs and imaging results. Most recent EKG Assessment/Plan Lorenzo Reis is a 66 y/o male with PMHx significant for HLD, BPH, Hypothyroidism, Hx of PE 2 years ago, tobacco use disorder. Approximate 3 weeks ago the pt states he began to have cold sweats, productive cough with greenish sputum, cold sweats, lightheadedness, and chest pressure/tightness on exertion. Pt went to urgent care on 09/16 for these symptoms and was treated for acute bronchitis with doxycycline. He went home and the coughing continued to get worse and the pressure in his chest started to happen at rest. Pt says he was coughing so much and so hard that he thought he was going to pass out. This brought him to the [facility] ED on 09/20/2021. EKG showed NSR without acute ischemic changes. Tropin T < 0.010 x 3. Pt underwent left heart cath on 09/22/2021 which showed mid RCA 85% stenosis and Cx OM 1 with 90% stenosis. Pt was then transferred to [facility] on 09/22/2021 for stent placement. On 09/23 underwent placement of AUBREY on OM1 and LCX. # Chest pain, resolved # Unstable Angina - On admission patient was complaining about chest tightness which was atypical for angina - The patient has several cardiac risk factors like current smoker, hyperlipidemia, hypertension, obesity, strong family history of early coronary artery disease - On admission KAMERON risk 5 - high risk - Pt underwent left heart cath 09/20/2021 showing 3 stenotic vessels prompting transfer to [facility] for community outreach specialist to do stent placement - LCX and OM1 AUBREY placed on 09/23 Plan - Pt will undergo stent placement for RCA today afternoon, we will watch patient after the procedure, likely to be discharged home tomorrow - C/w high intensity statin - Continue dual antiplatelet therapy - ticagrelor 90 mg, aspirin 81 mg - O2 if necessary with goal SpO2 92-94% - Follow up with cardiology outpatient, 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 We believe that viral etiology is most likely in this case, unlikely to be caused by bacterial infection. Plan - continue with supportive care: Albuterol q 6 hrs prn, robitussin 10 mL q 4 hr prn - No need of antibiotics as of now # BPH (benign prostatic hyperplasia) - continue finasteride 5 mg daily # Acquired hypothyroidism - Continue levothyroxzine 175 mcg # Hyperlipidemia - Continue atorvastatin 80 mg at bedtime Medication and Non-Pharmacologic VTE Prophylaxis/Anticoagulants Anticoagulant AND Antiplatelet Medications (From admission, onward) Start Dose Route Frequency Last Action Ordered Stop 09/23/21899 aspirin 81 mg chewable tab(s) 81 mg ORAL DAILY Given, 09/24 91909/22/211916 -- 09/23/21899 ticagrelor 90 mg tab(s) (BRILINTA) 90 mg ORAL 2 TIMES DAILY Given, 09/24 210709/22/211916 -- 09/22/211914 vte current anticoag therapy ([place]) 09/22/211914 activity - mobilize patient ([place]) VTE Prophylaxis: Disposition: Home when ready for discharge Plan of care discussed with: Provider, RN, Patient SIGNATURE: Kadeem Theodore MD PATIENT NAME: Lorenzo Reis DATE: September 24, 2021 TIME: 8:03 AM etx 5000 (more content not included)...[facility] [id number] NoteHNO ID: [id number] Author: Katie Ritchie [email or web address] Service: Cardiovascular Medicine Author Type: Nurse Practitioner Type: Plan of Care Filed: 09/23/2021 2:32 PM Note Text: Cardiology S/p complex PCI/stents to LCX, OM#1 via right groin today -used 260 ml contrast dye -to receive IVF overnight -denies chest pain, sob -c/o low back pain -ekg: NSR with no acute ST changes -right groin soft, no hematoma -will have PCI RCA tomorrow -npo after breakfast -BMP in [employer]03-09-2022 NoteHNO ID: [id number] Author: Javi Gramajo MD Service: Hospital Medicine Author Type: Physician Type: Progress Notes Filed: 09/25/2021 4:19 PM Note Text: DEPARTMENT OF HOSPITAL MEDICINE PROGRESS NOTE SERVICE DATE: 09/23/2021 SERVICE TIME: 1:35 PM Hospital Medicine/Primary Attending: Dr. Javi Gramajo NIGHT AND WEEKEND COVERAGE: [place] COVERAGE:TEAM 2: [id number], please call Team 2 pager [phone]. [id number], please call [facility] Night Coverage pager [phone]) for Teams 1, 2, AND 3 Subjective INTERVAL HPI: Lorenzo Reis is a 66 y/o male with PMHx significant for HLD, BPH, Hypothyroidism, Hx of PE 2 years ago, tobacco use disorder. Events leading up to Hospital Admission: Approximate 3 weeks ago the pt states he began to have cold sweats, productive cough with greenish sputum, cold sweats, lightheadedness, and chest pressure/tightness on exertion. Pt went to urgent care on 09/16 for these symptoms and was treated for acute bronchitis with doxycycline. He went home and the coughing continued to get worse and the pressure in his chest started to happen at rest. Pt says he was coughing so much and so hard that he thought he was going to pass out. This brought him to the [facility] Emergency Department on 09/20/2021. EKG showed NSR without acute ischemic changes. Tropin T < 0.010 x 3. Pt underwent left heart cath on 09/22/2021 which showed mid RCA 85% stenosis and Cx OM 1 with 90% stenosis. Pt was then transferred to [facility] on 09/22/2021 for stent placement. He was given cefdinir 300 mg BID (for bronchitis) and Brilinta This morning: Lorenzo was pleasant this morning. He was not currently having any chest pressure. Had some shortness of breath. Overnight, Lorenzo woke up with 8/10 chest pain. EKG showed ST elevation in lead V2. No urgent intervention was required per Hospital medicine and cardiology team. He had several readings of bradycardia and hypotension in the night. Vitals are stable this morning. Pt has not ambulated. Pt had no BM, last one being ~3 days ago. Does not feel constipated. Pt has stent placement at 10 AM today. MEDICATIONS: Reviewed Objective PHYSICAL EXAM: BP 105/72 Pulse 53 Temp (Src) 97.7 (Oral) Resp 18 Wt 205 lb 6 oz (93.2kg) SpO2 97% Physical Exam Performed GENERAL: Alert, no distress, cooperative SKIN: Skin color, texture, turgor normal. No rashes or lesions. LUNGS: slightly wheezey CARDIAC: difficult to hear, cannot comment for my level of medical training ABDOMEN: Abdomen soft, non-tender, BS normal, No masses or organomegaly EXTREMITIES: Normal exam of the extremities, No ulcers Lines, Drains, and Airways Line Peripheral 09/20/21 1545 Assessment Short Right Antecubital 20 Gauge 2 days Reviewed lines and needs to be continued: REASONS: medications DATA: Diagnostic tests reviewed for today's visit: Most recent labs and imaging results. Most recent EKG Assessment/Plan Lorenzo Reis is a 66 y/o male admitted due to unstable angina and acute bronchitis Chest pain Unstable Angina KAMERON risk 5 - high risk - pt underwent left heart cath 09/20/2021 showing 3 stenotic vessels prompting transfer to [facility] for community outreach specialist to do stent placement - LCX and OM1 AUBREY placed today - Check BMP AM labs - c/w high intensity statin - Continue dual antiplatelet therapy - ticagrelor 90 mg, aspirin 81 mg - Continue O2 if necessary with goal SpO2 92-94% - Pt will undergo stent placement for RCA tomorrow - Follow up with cardiology outpatient Productive Cough, Dyspnea - pt has tobacco use disorder, consider COPD but acute onset of cough with cold sweats makes acute bronchitis more likely - Discontinue cefdinir 300 mg BID for suspicion of viral etiology, ordered Procalcitonin - continue with supportive care: Albuterol q 6 hrs prn, robitussin 10 mL q 4 hr prn Chronic Problems: BPH (benign prostatic hyperplasia) - continue finasteride 5 mg daily Acquired hypothyroidism - Continue levothyroxzine 175 mcg Hyperlipidemia - Continue atorvastatin 80 mg at bedtime Medication and Non-Pharmacologic VTE Prophylaxis/Anticoagulants Anticoagulant AND Antiplatelet Medications (From admission, onward) Start Dose Route Frequency Last Action Ordered Stop 09/23/21899 aspirin 81 mg chewable tab(s) 81 mg ORAL DAILY Given, 09/24 91909/22/211916 -- 09/23/21899 ticagrelor 90 mg tab(s) (BRILINTA) 90 mg ORAL 2 TIMES DAILY Given, 09/23 92009/22/211916 -- 09/22/211914 vte current anticoag therapy ([place], [place]) 09/22/211914 activity - mobilize patient ([place]) VTE Prophylaxis: Disposition: To be determined Plan of care discussed with: Provider, RN, Patient SIGNATURE: Celeste Rivera PATIENT NAME: Lorenzo Reis DATE: September 23, 2021 TIME: 1:35 PM etx [id number] Kadeem Theodore MD September 23, 2021 3:52 PM I evaluated the patient and personally participated in the chandler components. I agree with the residen (more content not included)...[facility] 09-23-2021 NoteHNO ID: [id number] Author: Miya Sharp MD Service: Hospital Medicine Author Type: Physician Type: Plan of Care Filed: 09/23/2021 4:39 AM Note Text: Patient developed chest pain which already subsided. EKG showed some ST changes in V2 to V4. Discussed with Dr. Gomez , no urgent intervention required. Miya Sharp MDMilford Regional Medical [id number] History of Present illness Narrative* Johanna Em, RT(R) - 05/05/2021 6:40 PM EDT Radiology Service Progress Note PATIENT NAME: Lorenzo Reis DATE OF SERVICE: May 05, 2021 TIME: 6:42 PM PATIENT IDENTITY VERIFICATION COMPLETED USING TWO (2) IDENTIFIERS: Name and Date of confirmedby patient verbally. FALL SCREENING: Has the patient had 2 falls in the last year or 1 fall with injury or currently using an Ambulatory Assistive Device (Walker, Cane, Wheelchair, Crutches, etc.)? No PATIENT GENDER DATA: Male PATIENT RELEVANT IMPLANT DATA REVIEWED: Not Applicable RADIOLOGY DEPARTMENT: General X-ray: Exam(s) Completed: Chest X-Ray PERIPHERAL IV DATA: Not applicable SIGNED BY: RT Dinora(R) May 05, 2021 6:42 PM [facility] History of Present illness Narrative* Helen TolbertRt), Tech - 08/18/2020 4:30 PM EST Radiology Service Progress Note PATIENT NAME: Lorenzo Reis DATE OF SERVICE: August 18, 2020 TIME: 4:25 PM PATIENT IDENTITY VERIFICATION COMPLETED USING TWO (2) IDENTIFIERS: Name and Date of confirmedby patient verbally. FALL SCREENING: Has the patient had 2 falls in the last year or 1 fall with injury or currently using an Ambulatory Assistive Device (Walker, Cane, Wheelchair, Crutches, etc.)? No PATIENT GENDER DATA: Male PATIENT RELEVANT IMPLANT DATA REVIEWED: Yes RADIOLOGY DEPARTMENT: General X-ray: Exam(s) Completed: Chest X-Ray PERIPHERAL IV DATA: Not applicable SIGNED BY: RT Jazzy August 18, 2020 4:25 PM [facility] History of Present illness Narrative* Helen TolbertRt), Tech - 07/29/2020 8:00 AM EST Radiology Service Progress Note PATIENT NAME: Lorenzo Reis DATE OF SERVICE: July 29, 2020 TIME: 8:25 AM PATIENT IDENTITY VERIFICATION COMPLETED USING TWO (2) IDENTIFIERS: Name and Date of confirmedby patient verbally. FALL SCREENING: Has the patient had 2 falls in the last year or 1 fall with injury or currently using an Ambulatory Assistive Device (Walker, Cane, Wheelchair, Crutches, etc.)? No PATIENT GENDER DATA: Male PATIENT RELEVANT IMPLANT DATA REVIEWED: Yes RADIOLOGY DEPARTMENT: General X-ray: Exam(s) Completed: Chest X-Ray PERIPHERAL IV DATA: Not applicable SIGNED BY: RT Jazzy July 29, 2020 8:25 AM [facility] History of Present illness Narrative* Johanna EmRt), Larry - 06/11/2020 2:20 PM EST Radiology Service Progress Note PATIENT NAME: Lorenzo Reis DATE OF SERVICE: June 11, 2020 TIME: 2:25 PM PATIENT IDENTITY VERIFICATION COMPLETED USING TWO (2) IDENTIFIERS: Name and Date of confirmedby patient verbally. FALL SCREENING: Has the patient had 2 falls in the last year or 1 fall with injury or currently using an Ambulatory Assistive Device (Walker, Cane, Wheelchair, Crutches, etc.)? No PATIENT GENDER DATA: Male PATIENT RELEVANT IMPLANT DATA REVIEWED: Not Applicable RADIOLOGY DEPARTMENT: General X-ray: Exam(s) Completed: Upper Extremity X- Ray(s): Shoulder, AP / TRUE AP / SUPRA OUTLET right : PERIPHERAL IV DATA: Not applicable SIGNED BY: RT Dinora June 11, 2020 2:25 PM [facility]* Diagnosis Hypothyroidism, unspecified type [facility] Diagnosis S/P coronary artery stent placement Postsurgical percutaneous transluminal coronary angioplasty status documented in this encounter [facility] noteNo assessment information availableWDayton Osteopathic Hospital Work Phone: Evaluation note* Diagnosis S/P coronary artery stent placement Postsurgical percutaneous transluminal coronary angioplasty status documented in this encounter [facility] note* Diagnosis S/P coronary artery stent placement Postsurgical percutaneous transluminal coronary angioplasty status [facility]* Diagnosis Acquired hypothyroidism- Primary Unspecified hypothyroidism Mixed hyperlipidemia 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 Pulmonary nodules Other nonspecific abnormal finding of lung field Smoker Tobacco use disorder Benign prostatic hyperplasia without lower urinary tract symptoms Acute pain of right shoulder Disorder of left ear lobe documented in this encounter [facility] note* Diagnosis S/P coronary artery stent placement Postsurgical percutaneous transluminal coronary angioplasty status documented in this encounter [facility] note* Diagnosis S/P coronary artery stent placement Postsurgical percutaneous transluminal coronary angioplasty status documented in this encounter [facility] note* Diagnosis S/P coronary artery stent placement Postsurgical percutaneous transluminal coronary angioplasty status documented in this encounter [facility] note* Diagnosis S/P coronary artery stent placement Postsurgical percutaneous transluminal coronary angioplasty status documented in this encounter [facility] note* Diagnosis S/P coronary artery stent placement Postsurgical percutaneous transluminal coronary angioplasty status documented in this encounter [facility] note* Diagnosis S/P coronary artery stent placement Postsurgical percutaneous transluminal coronary angioplasty status documented in this encounter [facility] note* Diagnosis S/P coronary artery stent placement Postsurgical percutaneous transluminal coronary angioplasty status documented in this encounter [facility] note* Diagnosis S/P coronary artery stent placement Postsurgical percutaneous transluminal coronary angioplasty status documented in this encounter [facility] note* Diagnosis S/P coronary artery stent placement Postsurgical percutaneous transluminal coronary angioplasty status documented in this encounter [facility] note* Diagnosis S/P coronary artery stent placement Postsurgical percutaneous transluminal coronary angioplasty status documented in this encounter [facility] note* Diagnosis S/P coronary artery stent placement Postsurgical percutaneous transluminal coronary angioplasty status [facility] in [facility] Diagnosis S/P coronary artery stent placement Postsurgical percutaneous transluminal coronary angioplasty status documented in this encounter [facility] note* Diagnosis S/P coronary artery stent placement Postsurgical percutaneous transluminal coronary angioplasty status [facility] in [facility] Diagnosis S/P coronary artery stent placement Postsurgical percutaneous transluminal coronary angioplasty status documented in this encounter [facility] note* Diagnosis S/P coronary artery stent placement Postsurgical percutaneous transluminal coronary angioplasty status [facility] Diagnosis S/P coronary artery stent placement Postsurgical percutaneous transluminal coronary angioplasty status [facility]* Diagnosis S/P coronary artery stent placement Postsurgical percutaneous transluminal coronary angioplasty status [facility] Diagnosis S/P coronary artery stent placement Postsurgical percutaneous transluminal coronary angioplasty status [facility] Diagnosis S/P coronary artery stent placement Postsurgical percutaneous transluminal coronary angioplasty status [facility]* Diagnosis Acute pain of right shoulder- Primary Traumatic complete tear of right rotator cuff, initial encounter [facility]* Diagnosis S/P coronary artery stent placement Postsurgical percutaneous transluminal coronary angioplasty status [facility] Diagnosis S/P coronary artery stent placement Postsurgical percutaneous transluminal coronary angioplasty status [facility] Diagnosis S/P coronary artery stent placement Postsurgical percutaneous transluminal coronary angioplasty status [facility]* Diagnosis S/P coronary artery stent placement Postsurgical percutaneous transluminal coronary angioplasty status [facility] Diagnosis Traumatic complete tear of right rotator cuff, subsequent encounter- Primary Other secondary osteoarthritis of right shoulder [facility]* Diagnosis Traumatic complete tear of right rotator cuff, subsequent encounter- Primary Other secondary osteoarthritis of right shoulder [facility]* Diagnosis Traumatic complete tear of right rotator cuff, subsequent encounter- Primary [facility]* Diagnosis 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- Primary Acquired hypothyroidism Unspecified hypothyroidism Need for influenza vaccination Need for prophylactic vaccination and inoculation against influenza Mixed hyperlipidemia Smoker Tobacco use disorder Viral URI Acute upper respiratory infections of unspecified site [facility] Diagnosis Traumatic complete tear of right rotator cuff, subsequent encounter- Primary Acute pain of right shoulder Traumatic complete tear of right rotator cuff, subsequent encounter Acute pain of right shoulder [facility]* Diagnosis Pre-operative examination- Primary Preoperative examination, unspecified 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 Essential hypertension, benign Mixed hyperlipidemia History of pulmonary embolus (PE) Personal history of pulmonary embolism Acquired hypothyroidism Unspecified hypothyroidism Benign prostatic hyperplasia without lower urinary tract symptoms Pulmonary nodules Other nonspecific abnormal finding of lung field Smoker Tobacco use disorder Traumatic complete tear of right rotator cuff, subsequent encounter Acute pain of right shoulder [facility] Diagnosis Chronic right shoulder pain- Primary Pain in joint, shoulder region [facility]* Diagnosis Status post reverse total replacement of right shoulder- Primary [facility]* Diagnosis S/P shoulder surgery- Primary Other postprocedural status [facility]* Diagnosis S/P shoulder surgery- Primary Other postprocedural status [facility]* Diagnosis Essential hypertension, benign- Primary [facility] Diagnosis Chronic right shoulder pain- Primary Pain in joint, shoulder region [facility] Diagnosis Status post reverse total replacement of right shoulder- Primary [facility]* Diagnosis S/P shoulder surgery- Primary Other postprocedural status [facility]* Diagnosis S/P shoulder surgery- Primary Other postprocedural status [facility]* Diagnosis Chronic right shoulder pain- Primary Pain in joint, shoulder region [facility]* Diagnosis Status post reverse total replacement of right shoulder- Primary [facility]* Diagnosis S/P shoulder surgery- Primary Other postprocedural status [facility]* Diagnosis Benign prostatic hyperplasia with urinary obstruction [facility] Diagnosis Benign prostatic hyperplasia with urinary obstruction [facility] Diagnosis Essential hypertension, benign- Primary Benign prostatic hyperplasia with urinary obstruction Acquired hypothyroidism Unspecified hypothyroidism Need for vaccination Need for prophylactic vaccination and inoculation against unspecified single disease Screening for AAA (abdominal aortic aneurysm) Screening for other and unspecified cardiovascular conditions Mixed hyperlipidemia Smoker Tobacco use disorder Neck pain Cervicalgia [facility] Diagnosis Encounter for screening for lung cancer- Primary Tobacco use current Multiple lung nodules Other nonspecific abnormal finding of lung field [facility] Diagnosis Essential hypertension, benign- Primary Need for influenza vaccination Need for prophylactic vaccination and inoculation against influenza Mixed hyperlipidemia Pulmonary nodules Other nonspecific abnormal finding of lung field Smoker Tobacco use disorder Cough, unspecified type Acquired hypothyroidism Unspecified hypothyroidism [facility] Diagnosis Mixed hyperlipidemia- Primary Acquired hypothyroidism Unspecified hypothyroidism Essential hypertension, benign Elevated glucose Other abnormal glucose [facility]* Diagnosis Screening for AAA (abdominal aortic aneurysm) Screening for other and unspecified cardiovascular conditions [facility]* Diagnosis Essential hypertension, benign [facility]* Diagnosis Essential hypertension, benign- Primary Acquired hypothyroidism Unspecified hypothyroidism Mixed hyperlipidemia Smoker Tobacco use disorder Screening for colon cancer Special screening for malignant neoplasms, colon documented [facility]* Diagnosis Acquired hypothyroidism Unspecified hypothyroidism [facility]* Diagnosis History of colonic polyps- Primary Personal history of colonic polyps Screening for colon cancer Special screening for malignant neoplasms, colon [facility]* Diagnosis Mixed hyperlipidemia Essential hypertension, benign Benign prostatic hyperplasia with urinary obstruction [facility]* Diagnosis Pre-operative examination- Primary Preoperative examination, unspecified 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 Essential hypertension, benign Mixed hyperlipidemia History of pulmonary embolus (PE) Personal history of pulmonary embolism Acquired hypothyroidism Unspecified hypothyroidism Benign prostatic hyperplasia without lower urinary tract symptoms Pulmonary nodules Other nonspecific abnormal finding of lung field Smoker Tobacco use disorder Neck pain Cervicalgia [facility]* Diagnosis Cough Pre-operative examination- Primary Preoperative examination, unspecified 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 Essential hypertension, benign Mixed hyperlipidemia History of pulmonary embolus (PE) Personal history of pulmonary embolism Acquired hypothyroidism Unspecified hypothyroidism Benign prostatic hyperplasia without lower urinary tract symptoms Pulmonary nodules Other nonspecific abnormal finding of lung field Smoker Tobacco use disorder [facility] Diagnosis Bacterial pneumonia Bacterial pneumonia, unspecified Pre-operative examination- Primary Preoperative examination, unspecified 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 Essential hypertension, benign Mixed hyperlipidemia History of pulmonary embolus (PE) Personal history of pulmonary embolism Acquired hypothyroidism Unspecified hypothyroidism Benign prostatic hyperplasia without lower urinary tract symptoms Pulmonary nodules Other nonspecific abnormal finding of lung field Smoker Tobacco use disorder [facility] Diagnosis Chronic right shoulder pain Pain in joint, shoulder region Pre-operative examination- Primary Preoperative examination, unspecified 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 Essential hypertension, benign Mixed hyperlipidemia History of pulmonary embolus (PE) Personal history of pulmonary embolism Acquired hypothyroidism Unspecified hypothyroidism Benign prostatic hyperplasia without lower urinary tract symptoms Pulmonary nodules Other nonspecific abnormal finding of lung field Smoker Tobacco use disorder [facility]* Diagnosis Pre-operative examination- Primary Preoperative examination, unspecified 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 Essential hypertension, benign Mixed hyperlipidemia History of pulmonary embolus (PE) Personal history of pulmonary embolism Acquired hypothyroidism Unspecified hypothyroidism Benign prostatic hyperplasia without lower urinary tract symptoms Pulmonary nodules Other nonspecific abnormal finding of lung field Smoker Tobacco use disorder Coronary artery disease due to lipid rich plaque- Primary Ascending aorta dilatation (HCC) Thoracic aortic ectasia SOB (shortness of breath) Shortness of breath documented in this encounter [facility] note* Diagnosis Pre-operative examination- Primary Preoperative examination, unspecified 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 Essential hypertension, benign Mixed hyperlipidemia History of pulmonary embolus (PE) Personal history of pulmonary embolism Acquired hypothyroidism Unspecified hypothyroidism Benign prostatic hyperplasia without lower urinary tract symptoms Pulmonary nodules Other nonspecific abnormal finding of lung field Smoker Tobacco use disorder Coronary artery disease due to lipid rich plaque Ascending aorta dilatation (HCC) Thoracic aortic ectasia SOB (shortness of breath) Shortness of breath documented in this encounter [facility] note* Diagnosis Pre-operative examination- Primary Preoperative examination, unspecified 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 Essential hypertension, benign Mixed hyperlipidemia History of pulmonary embolus (PE) Personal history of pulmonary embolism Acquired hypothyroidism Unspecified hypothyroidism Benign prostatic hyperplasia without lower urinary tract symptoms Pulmonary nodules Other nonspecific abnormal finding of lung field Smoker Tobacco use disorder Coronary artery disease due to lipid rich plaque SOB (shortness of breath) Shortness of breath [facility] Diagnosis Pre-operative examination- Primary Preoperative examination, unspecified 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 Essential hypertension, benign Mixed hyperlipidemia History of pulmonary embolus (PE) Personal history of pulmonary embolism Acquired hypothyroidism Unspecified hypothyroidism Benign prostatic hyperplasia without lower urinary tract symptoms Pulmonary nodules Other nonspecific abnormal finding of lung field Smoker Tobacco use disorder Essential hypertension, benign- Primary Need for influenza vaccination Need for prophylactic vaccination and inoculation against influenza Need for vaccination Need for prophylactic vaccination and inoculation against unspecified single disease Acquired hypothyroidism Unspecified hypothyroidism Mixed hyperlipidemia Elevated PSA Elevated prostate specific antigen (PSA) Benign prostatic hyperplasia without lower urinary tract symptoms Smoker Tobacco use disorder 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 [facility] Diagnosis Pre-operative examination- Primary Preoperative examination, unspecified 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 Essential hypertension, benign Mixed hyperlipidemia History of pulmonary embolus (PE) Personal history of pulmonary embolism Acquired hypothyroidism Unspecified hypothyroidism Benign prostatic hyperplasia without lower urinary tract symptoms Pulmonary nodules Other nonspecific abnormal finding of lung field Smoker Tobacco use disorder Abnormal stress test- Primary Other nonspecific abnormal cardiovascular system function study SOB (shortness of breath) Shortness of breath Abnormal findings on diagnostic imaging of heart and coronary circulation Other nonspecific abnormal cardiovascular system function study [facility] Diagnosis Pre-operative examination- Primary Preoperative examination, unspecified 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 Essential hypertension, benign Mixed hyperlipidemia History of pulmonary embolus (PE) Personal history of pulmonary embolism Acquired hypothyroidism Unspecified hypothyroidism Benign prostatic hyperplasia without lower urinary tract symptoms Pulmonary nodules Other nonspecific abnormal finding of lung field Smoker Tobacco use disorder Encounter for screening for lung cancer- Primary Tobacco use current [facility] Diagnosis Pre-operative examination- Primary Preoperative examination, unspecified 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 Essential hypertension, benign Mixed hyperlipidemia History of pulmonary embolus (PE) Personal history of pulmonary embolism Acquired hypothyroidism Unspecified hypothyroidism Benign prostatic hyperplasia without lower urinary tract symptoms Pulmonary nodules Other nonspecific abnormal finding of lung field Smoker Tobacco use disorder Encounter for screening colonoscopy- Primary Special screening for malignant neoplasms, colon History of colonic polyps Personal history of colonic polyps [facility] Diagnosis Pre-operative examination- Primary Preoperative examination, unspecified 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 Essential hypertension, benign Mixed hyperlipidemia History of pulmonary embolus (PE) Personal history of pulmonary embolism Acquired hypothyroidism Unspecified hypothyroidism Benign prostatic hyperplasia without lower urinary tract symptoms Pulmonary nodules Other nonspecific abnormal finding of lung field Smoker Tobacco use disorder Hyperplastic polyp of ascending colon- Primary [facility] Diagnosis Pre-operative examination- Primary Preoperative examination, unspecified 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 Essential hypertension, benign Mixed hyperlipidemia History of pulmonary embolus (PE) Personal history of pulmonary embolism Acquired hypothyroidism Unspecified hypothyroidism Benign prostatic hyperplasia without lower urinary tract symptoms Pulmonary nodules Other nonspecific abnormal finding of lung field Smoker Tobacco use disorder Multiple lung nodules- Primary Other nonspecific abnormal finding of lung field Encounter for screening for lung cancer Smoker Tobacco use disorder Shortness of breath documented in this encounter [facility] note* Diagnosis Pre-operative examination- Primary Preoperative examination, unspecified 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 Essential hypertension, benign Mixed hyperlipidemia History of pulmonary embolus (PE) Personal history of pulmonary embolism Acquired hypothyroidism Unspecified hypothyroidism Benign prostatic hyperplasia without lower urinary tract symptoms Pulmonary nodules Other nonspecific abnormal finding of lung field Smoker Tobacco use disorder Encounter for screening for lung cancer Tobacco use current documented in this encounter [facility] note* Diagnosis Pre-operative examination- Primary Preoperative examination, unspecified 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 Essential hypertension, benign Mixed hyperlipidemia History of pulmonary embolus (PE) Personal history of pulmonary embolism Acquired hypothyroidism Unspecified hypothyroidism Benign prostatic hyperplasia without lower urinary tract symptoms Pulmonary nodules Other nonspecific abnormal finding of lung field Smoker Tobacco use disorder Shortness of breath documented in this encounter [facility] note* Diagnosis Pre-operative examination- Primary Preoperative examination, unspecified 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 Essential hypertension, benign Mixed hyperlipidemia History of pulmonary embolus (PE) Personal history of pulmonary embolism Acquired hypothyroidism Unspecified hypothyroidism Benign prostatic hyperplasia without lower urinary tract symptoms Pulmonary nodules Other nonspecific abnormal finding of lung field Smoker Tobacco use disorder Asthma with chronic obstructive pulmonary disease (COPD) ([facility])- Primary Chronic obstructive asthma, unspecified documented in this encounter [facility] note* Diagnosis Pre-operative examination- Primary Preoperative examination, unspecified 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 Essential hypertension, benign Mixed hyperlipidemia History of pulmonary embolus (PE) Personal history of pulmonary embolism Acquired hypothyroidism Unspecified hypothyroidism Benign prostatic hyperplasia without lower urinary tract symptoms Pulmonary nodules Other nonspecific abnormal finding of lung field Smoker Tobacco use disorder Stage 3 severe COPD by GOLD classification ([facility])- Primary Cigarette smoker Tobacco use disorder Oropharyngeal dysphagia Dysphagia, oropharyngeal phase [facility] Diagnosis Pre-operative examination- Primary Preoperative examination, unspecified 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 Essential hypertension, benign Mixed hyperlipidemia History of pulmonary embolus (PE) Personal history of pulmonary embolism Acquired hypothyroidism Unspecified hypothyroidism Benign prostatic hyperplasia without lower urinary tract symptoms Pulmonary nodules Other nonspecific abnormal finding of lung field Smoker Tobacco use disorder Stage 3 severe COPD by GOLD classification (HCC)- Primary [facility] Diagnosis Pre-operative examination- Primary Preoperative examination, unspecified 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 Essential hypertension, benign Mixed hyperlipidemia History of pulmonary embolus (PE) Personal history of pulmonary embolism Acquired hypothyroidism Unspecified hypothyroidism Benign prostatic hyperplasia without lower urinary tract symptoms Pulmonary nodules Other nonspecific abnormal finding of lung field Smoker Tobacco use disorder Cigarette smoker Tobacco use disorder [facility] Diagnosis Pre-operative examination- Primary Preoperative examination, unspecified 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 Essential hypertension, benign Mixed hyperlipidemia History of pulmonary embolus (PE) Personal history of pulmonary embolism Acquired hypothyroidism Unspecified hypothyroidism Benign prostatic hyperplasia without lower urinary tract symptoms Pulmonary nodules Other nonspecific abnormal finding of lung field Smoker Tobacco use disorder Acquired hypothyroidism- Primary Unspecified hypothyroidism Elevated glucose Other abnormal glucose Essential hypertension, benign Mixed hyperlipidemia 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 Smoker Tobacco use disorder Pulmonary nodules Other nonspecific abnormal finding of lung field Elevated PSA Elevated prostate specific antigen (PSA) Benign prostatic hyperplasia without lower urinary tract symptoms Screening for depression Encounter for screening examination for other mental health and behavioral disorders [facility] Diagnosis Pre-operative examination- Primary Preoperative examination, unspecified 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 Essential hypertension, benign Mixed hyperlipidemia History of pulmonary embolus (PE) Personal history of pulmonary embolism Acquired hypothyroidism Unspecified hypothyroidism Benign prostatic hyperplasia without lower urinary tract symptoms Pulmonary nodules Other nonspecific abnormal finding of lung field Smoker Tobacco use disorder Stage 3 severe COPD by GOLD classification (HCC)- Primary Cigarette smoker Tobacco use disorder documented in this encounter [facility] for referral (narrative)* Diagnostic Procedure Only (Routine) - Authorized Specialty Diagnoses / Procedures Referred By Contgeorges t Referred To Contact XR IMAGING Diagnoses Chronic right shoulder pain Procedures XR SHOULDER GENERAL 3V OR MORE AP/TRUE AP/OTHER RIGHT RADEX SHOULDER COMPLETE MINIMUM 2 VIEWS Jocy Wadsworth PA-C [address] [place] [address] Xr Imaging Referral ID Status Reason Start Date Expiration Date Visits Requested Visits Authorized [id number] Authorized Auto-Generat ed Referral 07/28/2023 1 1 [facility] for referral (narrative)* Diagnostic Procedure Only (Routine) - Pending Review Specialty Diagnoses / Procedures Referred By Contac t Referred To Contact XR IMAGING Diagnoses Chronic right shoulder pain Procedures XR SHOULDER GENERAL 3V OR MORE AP/TRUE AP/OTHER RIGHT RADEX SHOULDER COMPLETE MINIMUM 2 VIEWS Jocy Wadsworth PA-C [address] [place] [address] Xr Imaging Referral ID Status Reason Start Date Expiration Date Visits Requested Visits Authorized [id number] Pending Review Auto-Generat ed Referral 07/30/2022 08/29/2023 1 1 [facility] for referral (narrative)* Diagnostic Procedure Only (Routine) - Authorized Specialty Diagnoses / Procedures Referred By Contac t Referred To Contact XR IMAGING Diagnoses Chronic right shoulder pain Procedures XR SHOULDER GENERAL 3V OR MORE AP/TRUE AP/OTHER RIGHT RADEX SHOULDER COMPLETE MINIMUM 2 VIEWS Jocy Wadsworth PA-C [address] [place] [address] Xr Imaging Referral ID Status Reason Start Date Expiration Date Visits Requested Visits Authorized [id number] Authorized Auto-Generat ed Referral 09/01/2022 10/01/2023 1 1 [facility] for referral (narrative)* Diagnostic Procedure Only (Routine) - Closed Specialty Diagnoses / Procedures Referred By Contac t Referred To Contact XR IMAGING Diagnoses Neck pain Procedures XR CERV OTHER 4V AP/LAT/OBL RADEX SPINE CERVICAL 4 OR 5 VIEWS Mark Ramirez MD [address] [place] [address] Xr Imaging Referral ID Status Reason Start Date Expiration Date V isits Requested Visits Authorized [id number] Closed Auto-Generate d Referral 11/12/2022 12/12/2023 1 1 * Physical Therapy (Routine) - Authorized Specialty Diagnoses / Procedures Referred By Contac t Referred To Contact [facility] Diagnoses Neck pain Procedures CONSULT TO PHYSICAL THERAPY PHYSICAL THERAPY EVALUATION HIGH COMPLEX 45 MINS Mark Ramirez MD [address] [place] [address] [facility] [place] [address] [place] [address] Referral ID Status Reason Start Date Expiration Date Visits Requested Visits Authorized [id number] Authorized PCP Requested Referral Auto-Generate d Referral 11/12/2022 11/12/2023 99 99 * Diagnostic Procedure Only (Routine) - Authorized Specialty Diagnoses / Procedures Referred By Contac t Referred To Contact US IMAGING Diagnoses Screening for AAA (abdominal aortic aneurysm) Procedures US SCREENING FOR AAA (2017) US ABDOMINAL AORTA REAL TIME SCREEN STUDY AAA Mark Ramirez MD [address] [place] [address] [facility] Referral ID Status Reason Start Date Expiration Date Visits Requested Visits Authorized [id number] Authorized Auto-Generat ed Referral 11/12/2022 12/12/2023 1 1 [facility] for referral (narrative)* Diagnostic Procedure Only (Routine) - Closed Specialty Diagnoses / Procedures Referred By Contac t Referred To Contact US IMAGING Diagnoses Screening for AAA (abdominal aortic aneurysm) Procedures US SCREENING FOR AAA (2017) US ABDOMINAL AORTA REAL TIME SCREEN STUDY AAA Mark Ramirez MD [address] [place] [address] [place] [address] Referral ID Status Reason Start Date Expiration Date V isits Requested Visits Authorized [id number] Closed Auto-Generate d Referral 11/12/2022 12/12/2023 1 1 [facility] for referral (narrative)* Outpatient Procedure (Routine) - Authorized Specialty Diagnoses / Procedures Referred By Contac t Referred To Contact [facility] Diagnoses History of colonic polyps Procedures COLONOSCOPY SCREENING COLONOSCOPY FLX DX W/COLLJ SPEC WHEN Sima Cantu APRN.WATER PUMP INSTALLER [address] [facility] [place] [address] [facility] [place] [address] [place] [address] Referral ID Status Reason Start Date Expiration Date Visits Requested Visits Authorized [id number] Authorized Auto-Generat ed Referral 12/26/2023 12/25/2024 1 1 [facility] for referral (narrative)* Diagnostic Procedure Only (Routine) - Closed Specialty Diagnoses / Procedures Referred By Contac t Referred To Contact XR IMAGING Diagnoses Neck pain Procedures XR CERV OTHER 4V AP/LAT/OBL RADEX SPINE CERVICAL 4 OR 5 VIEWS Mark Ramirez MD [address] [place] [address] [place] [address] Referral ID Status Reason Start Date Expiration Date V isits Requested Visits Authorized [id number] Closed Auto-Generate d Referral 11/12/2022 12/12/2023 1 1 [facility] for referral (narrative)* Outpatient Procedure (Routine) - Authorized Specialty Diagnoses / Procedures Referred By Contac t Referred To Contact [facility] Diagnoses Coronary artery disease due to lipid rich plaque Ascending aorta dilatation (HCC) SOB (shortness of breath) Procedures ECHO ECHO TTHRC R-T 2D W/WOM-MODE COMPL SPEC&COLR D Esha Hawthorne MD [address] [place] [address] [facility] [place] [address] [place] [id number] Referral ID Status Reason Start Date Expiration Date Visits Requested Visits Authorized [id number] Authorized Auto-Generat ed Referral 4 05/16/2025 1 1 * Diagnostic Procedure Only (Routine) - Authorized Specialty Diagnoses / Procedures Referred By Contac t Referred To Contact [facility] Diagnoses Coronary artery disease due to lipid rich plaque SOB (shortness of breath) Procedures NM CARDIAC PERF STRESS/EXERCISE MYOCARDIAL SPECT MULTIPLE STUDIES Esha Hawthorne MD [address] [place] [address] [facility] [address] [place] [address] Referral ID Status Reason Start Date Expiration Date Visits Requested Visits Authorized [id number] Authorized Auto-Generat ed Referral 4 06/15/2025 1 1 [facility] for referral (narrative)* Outpatient Procedure (Routine) - Closed Specialty Diagnoses / Procedures [facility] Diagnoses Coronary artery disease due to lipid rich plaque Ascending aorta dilatation (HCC) SOB (shortness of breath) Procedures ECHO ECHO TTHRC R-T 2D W/WOM-MODE COMPL SPEC&COLR D Esha Hawthorne MD [address] [place] [address] [facility] [place] [address] [place] [address] Referral ID Status Reason Start Date Expiration Date V isits Requested Visits Authorized [id number] Closed Auto-Generate d Referral 05/16/2024 05/16/2025 1 1 [facility] for referral (narrative)* Outpatient Procedure (Routine) - Closed Specialty Diagnoses / Procedures Referred By Contac t Referred To Contact [facility] Diagnoses History of colonic polyps Procedures COLONOSCOPY SCREENING COLONOSCOPY SCREENING COLONOSCOPY FLX DX W/COLLJ SPEC WHEN PFSima Dahl, GEOGRAPHY DEPARTMENT CHAIR.WATER PUMP INSTALLER [address] [place] [address] [facility] [place] [address] [place] [address] Referral ID Status Reason Start Date Expiration Date V isits Requested Visits Authorized [id number] Closed Auto-Generate d Referral 12/26/2023 12/25/2024 1 1 [facility] for visit Narrative* Diagnostic Procedure Only (Routine) - Closed Specialty Diagnoses / Procedures Referred By Contac t Referred To Contact XR IMAGING Diagnoses Neck pain Procedures XR CERV OTHER 4V AP/LAT/OBL RADEX SPINE CERVICAL 4 OR 5 VIEWS Mark Ramirez MD [address] [place] [address] [place] [address] Referral ID Status Reason Start Date Expiration Date V isits Requested Visits Authorized [id number] Closed Auto-Generate d Referral 11/12/2022 12/12/2023 1 1 [facility] for visit Narrative* Diagnostic Procedure Only (Routine) - Closed Specialty Diagnoses / Procedures Referred By Contac t Referred To Contact XR IMAGING Diagnoses Chronic right shoulder pain Procedures XR SHOULDER GENERAL 3V OR MORE AP/TRUE AP/OTHER RIGHT RADEX SHOULDER COMPLETE MINIMUM 2 VIEWS Jocy Wadsworth PA-C [address] [place] [address] [place] [address] Referral ID Status Reason Start Date Expiration Date V isits Requested Visits Authorized [id number] Closed Auto-Generate d Referral 07/30/2022 08/29/2023 1 1 [facility] for visit Narrative* Diagnostic Procedure Only (Routine) - Closed Specialty Diagnoses / Procedures Referred By Contac t Referred To Contact XR IMAGING Diagnoses Chronic right shoulder pain Procedures XR SHOULDER GENERAL 3V OR MORE AP/TRUE AP/OTHER RIGHT RADEX SHOULDER COMPLETE MINIMUM 2 VIEWS Joyc Wadsworth PA-C [address] [place] [address] [place] [address] Referral ID Status Reason Start Date Expiration Date V isits Requested Visits Authorized [id number] Closed Auto-Generate d Referral 09/01/2022 10/01/2023 1 1 [facility] for visit Narrative* Diagnostic Procedure Only (Routine) - Closed Specialty Diagnoses / Procedures Referred By Contac t Referred To Contact XR IMAGING Diagnoses Chronic right shoulder pain Procedures XR SHOULDER GENERAL 3V OR MORE AP/TRUE AP/OTHER RIGHT RADEX SHOULDER COMPLETE MINIMUM 2 VIEWS Jocy Wadsworth PA-C [address] [place] [address] [place] [address] Referral ID Status Reason Start Date Expiration Date V isits Requested Visits Authorized [id number] Closed Auto-Generate d Referral 06/29/2022 07/28/2023 1 1 [facility] for visit Narrative* Diagnostic Procedure Only (Routine) - Closed Specialty Diagnoses / Procedures Referred By Ginny t Referred To Contact [facility] Diagnoses Coronary artery disease due to lipid rich plaque SOB (shortness of breath) Procedures NM CARDIAC PERF STRESS/EXERCISE MYOCARDIAL SPECT MULTIPLE STUDIES Esha Hawthorne MD [address] [place] [address] [facility] [address] [place] [address] Referral ID Status Reason Start Date Expiration Date V isits Requested Visits Authorized [id number] Closed Auto-Generate d Referral 05/16/2024 06/15/2025 1 1 [facility] for visit Narrative* Outpatient Procedure (Routine) - Closed Specialty Diagnoses / Procedures Referred By Ginny t Referred To Contact [facility] Diagnoses Coronary artery disease due to lipid rich plaque Ascending aorta dilatation (HCC) SOB (shortness of breath) Procedures ECHO ECHO TTHRC R-T 2D W/WOM-MODE COMPL SPEC&COLR D Esha Hawthorne MD [address] [place] [address] [facility] [place] [address] [place] [address] Referral ID Status Reason Start Date Expiration Date V isits Requested Visits Authorized [id number] Closed Auto-Generate d Referral 05/16/2024 05/16/2025 1 1 [facility] for visit Narrative* Outpatient Procedure (Routine) - Closed Specialty Diagnoses / Procedures Referred By Ginny t Referred To Contact [facility] Diagnoses History of colonic polyps Procedures COLONOSCOPY SCREENING COLONOSCOPY SCREENING COLONOSCOPY FLX DX W/COLLJ SPEC WHEN Sima Cantu APRN.WATER PUMP INSTALLER [address] [place] [address] [facility] [address] [place] [address] Referral ID Status Reason Start Date Expiration Date V isits Requested Visits Authorized [id number] Closed Auto-Generate d Referral 12/26/2023 12/25/2024 1 1 [facility] Summary Purpose Family History No Family History Records FoundNo Family History Records FoundNo Family History Records FoundNo Family History Records FoundNo Family History Records FoundNo Family History Records Found Advance Directives Documents on File Type Date Recorded Patient Tube Inspector Expl anation Advance Directive(s) 09/29/2021 10:54 PM Advance Directive(s) 09/23/2021 7:39 PM Advance Directive(s) 09/20/2021 3:20 PM Advance Directive(s) 12/23/2020 7:30 AM Advance Directive(s) 12/10/2020 4:45 PM Advance Directive(s) 08/20/2020 9:00 AM Advance Directive(s) 07/14/2020 1:33 PM Advance Directive(s) 05/19/2020 5:56 PM Advance Directive(s) 06/28/2018 6:52 AM Advance Directive(s) 06/12/2018 5:38 PM Advance Directive(s) 02/15/2018 7:03 AM Advance Directive(s) 08/05/2016 3:40 PM Latest Code Status on File Code Status Date Activated Date Inactivated Comments Full Code 09/24/2021 7:19 PM 09/26/2021 3:46 PM Full Code Order Discussed With: Patient Full Code 09/23/2021 1:22 PM 09/24/2021 7:19 PM Advance Directive Response Recorded Date/ Time Living Will No November 02, 2021 4:12pm Power of Press And Blow Machine Tender No November 02 4:12pm Documents on File Type Date Recorded Patient Tube Inspector Expl anation Advance Directive(s) 09/29/2021 10:54 PM Advance Directive(s) 09/23/2021 7:39 PM Advance Directive(s) 09/20/2021 3:20 PM Advance Directive(s) 12/23/2020 7:30 AM Advance Directive(s) 12/10/2020 4:45 PM Advance Directive(s) 08/20/2020 9:00 AM Advance Directive(s) 07/14/2020 1:33 PM Advance Directive(s) 05/19/2020 5:56 PM Advance Directive(s) 06/28/2018 6:52 AM Advance Directive(s) 06/12/2018 5:38 PM Advance Directive(s) 02/15/2018 7:03 AM Advance Directive(s) 08/05/2016 3:40 PM Latest Code Status on File Code Status Date Activated Date Inactivated Comments Full Code 09/24/2021 7:19 PM 09/26/2021 3:46 PM Full Code 09/23/2021 1:22 PM 09/24/2021 7:19 PM Latest Code Status on File Code Status Date Activated Date Inactivated Comments Full Code 09/24/2021 7:19 PM 09/26/2021 3:46 PM Question Answer Comments Full Code Order Discussed With: Patient Code Status History Code Status Date Activated Date Inactivated Comments Full Code 09/23/2021 1:22 PM 09/24/2021 7:19 PM Question Answer Comments Full Code Order Discussed With: Patient Latest Code Status on File Code Status Date Activated Date Inactivated Comments Full Code 09/24/2021 7:19 PM 09/26/2021 3:46 PM Question Answer Comments Full Code Order Discussed With: Patient Code Status History Code Status Date Activated Date Inactivated Comments Full Code 09/23/2021 1:22 PM 09/24/2021 7:19 PM Question Answer Comments Full Code Order Discussed With: Patient Date Activated Date Inactivated Comments 09/24/2021 7:19 PM 09/26/2021 3:46 PM Question Answer Comments Full Code Order Discussed With: Patient Date Activated Date Inactivated Comments 09/23/2021 1:22 PM 09/24/2021 7:19 PM Question Answer Comments Full Code Order Discussed With: Patient Date Activated Date Inactivated Comments 09/24/2021 7:19 PM 09/26/2021 3:46 PM Question Answer Comments Full Code Order Discussed With: Patient Date Activated Date Inactivated Comments 09/23/2021 1:22 PM 09/24/2021 7:19 PM Question Answer Comments Full Code Order Discussed With: Patient Procedure Findings Note HNO ID: [id number] Author: Luis Martínez Service: ? Author Type: Physician Type: Procedures Filed: 10/01/2020 11:01 AM Note Text: CYSTOSCOPY PROCEDURE NOTE: [id number]-lqkct/fulg [id number]--ggevf/complex [id number]--zyfej 04226--nwvqllpx cath 72988-jzbgn/dilate BLADDER IRRIGATION, SIMPLE, LAVAG [[id number] Lorenzo Reis is a 65 year old male who presents for cystoscopy. Pt ID verified with patient: yes Procedure verified with patient: yes Procedure confirmed with physician and family support coordinator: yes Sign In: History and Physical Exam reviewed and is unchanged. Primary Diagnosis: LUTs and BPH Informed Consent Discussed: Yes. Risks, benefits, alternatives and personnel discussed with patient who consents to proceed. Sign in Communication: Completed Time Out: Team Confirms the Correct Patient, Correct Procedure; Cystoscopy, Correct Site and Site Marking, Correct Position (if applicable). Fire Safety Check List Reviewed: Yes Affirmation of Time Out: Yes Sign Out: Sign Out Discussion: Completed Physician: (more content not included)... Chief Complaint and Reason for Visit Chief Complaint RIGHT SHOULDER PAIN Reason for Referral Specialty Diagnoses / Procedures Referred By Ginny montano Referred To Contact [facility] Diagnoses Acute pain of right shoulder Traumatic complete tear of right rotator cuff, initial encounter Procedures MRI SHOULDER WO IVCON RT MRI ANY JT UPPER EXTREMITY W/O CONTRAST Florian Mijares MD [address] [place] [address] Mr Imaging Referral ID Status Reason Start Date Expiration Date Visits Requested Visits Authorized [id number] Authorized Auto-Generat ed Referral 01/07/2022 02/06/2023 1 1 Specialty Diagnoses / Procedures Referred By Ginny montano Referred To Contact [facility] Diagnoses S/P shoulder surgery Procedures PT REHAB FOLLOW UP ORDER THERAPEUTIC EXERCISES RE, EA 15 MIN. Robert Soto, PT [address] [place] [address] [facility] [address] [address] Referral ID Status Reason Start Date Expiration Date Visits Requested Visits Authorized [id number] Pending Review PCP Requested Referral Auto-Generate d Referral 08/16/2022 11/14/2022 1 1 Specialty Diagnoses / Procedures Referred By Contac t Referred To Contact CT IMAGING Diagnoses Encounter for screening for lung cancer Tobacco use current Procedures CT LUNG SCREEN WO IVCON COMPUTED TOMOGRAPHY THORAX LW DOSE LNG CA Madina Pino, GEOGRAPHY DEPARTMENT CHAIR.WATER PUMP INSTALLER [address] [place] [address] Ct Imaging Referral ID Status Reason Start Date Expiration Date Visits Requested Visits Authorized [id number] Authorized Auto-Generat ed Referral 11/30/2022 12/30/2023 1 1 Specialty Diagnoses / Procedures Referred By Contac t Referred To Contact General Surgery Diagnoses Screening for colon cancer Procedures CONSULT TO GENERAL SURGERY OFFICE/OUTPATIENT [facility] 60 MINUTES Mark Ramirez MD [address] [place] [address] Referral ID Status Reason Start Date Expiration Date Visits Requested Visits Authorized [id number] Authorized PCP Requested Referral 11/24/2023 11/23/2024 1 1 Specialty Diagnoses / Procedures Referred By Contac t Referred To Contact CT IMAGING Diagnoses Encounter for screening for lung cancer Tobacco use current Procedures CT LUNG SCREEN WO IVCON COMPUTED TOMOGRAPHY THORAX LW DOSE LNG CA Madina Pino, GEOGRAPHY DEPARTMENT CHAIR.WATER PUMP INSTALLER [address] [place] [address] [place] [address] Referral ID Status Reason Start Date Expiration Date Visits Requested Visits Authorized [id number] New Request Auto-Generat ed Referral 06/18/2024 07/18/2025 1 1 Specialty Diagnoses / Procedures Referred By Contac t Referred To Contact CT IMAGING Diagnoses Smoker Encounter for screening for lung cancer Procedures CT LUNG SCREEN WO IVCON COMPUTED TOMOGRAPHY THORAX LW DOSE LNG CA Madina Pino, GEOGRAPHY DEPARTMENT CHAIR.WATER PUMP INSTALLER [address] [place] [address] [place] [address] Referral ID Status Reason Start Date Expiration Date Visits Requested Visits Authorized [id number] Authorized Auto-Generat ed Referral 08/13/2024 09/12/2025 1 1 Specialty Diagnoses / Procedures Referred By Contac t Referred To Contact [facility] Diagnoses Shortness of breath Procedures LUNG DIFFUSION CAPACITY (DLCO) DIFFUSING CAPACITY Madina Majano APRN.WATER PUMP INSTALLER [address] [place] [address] [facility] [address] [place] [address] Referral ID Status Reason Start Date Expiration Date Visits Requested Visits Authorized [id number] Authorized Auto-Generat ed Referral 08/13/2024 09/12/2025 1 1 Specialty Diagnoses / Procedures Referred By Contac t Referred To Contact [facility] Diagnoses Shortness of breath Procedures LUNG VOLUMES Madina Majano APRN.WATER PUMP INSTALLER [address] [place] [address] [place] [address] Referral ID Status Reason Start Date Expiration Date Visits Requested Visits Authorized [id number] Authorized Auto-Generat ed Referral 08/13/2024 09/12/2025 1 1 Specialty Diagnoses / Procedures Referred By Contac t Referred To Contact [facility] Diagnoses Shortness of breath Procedures SPIROMETRY WITH DILATOR IF OBSTRUCTED BRNCDILAT RSPSE SPMTRY PRE&POST-BRNCDILAT ADMN Madina Majano APRN.WATER PUMP INSTALLER [address] [place] [address] [place] [address] Referral ID Status Reason Start Date Expiration Date Visits Requested Visits Authorized [id number] Authorized Auto-Generat ed Referral 08/13/2024 09/12/2025 1 1 Referral ID Status Reason Start Date Expiration Date V isits Requested Visits Authorized [id number] Closed Auto-Generate d Referral 06/18/2024 07/18/2025 1 1 Medications Administered Section Inactive Administered Medications - up to 3 most recent administrations Medication Order MAR Action Action Date Dose Rate Site betamethasone acetate-betamethasone sodium phosphate 6 mg injection (CELESTONE) 6 mg, Injection - FOR ORTHO USE ONLY, ONE TIME INJECTION, 1 dose, Starting on Vickie 01/07/22 at 0842, Until Vickie 01/07/22 at 0842 Given 01/07/2022 8:42 AM EDT 6 mg lidocaine (PF) 10 mg/mL (1 %) 4 mL injection (XYLOCAINE) 4 mL, Injection - FOR ORTHO USE ONLY, ONE TIME INJECTION, 1 dose, Starting on Vickie 01/07/22 at 0842, Until Vickie 01/07/22 at 0842 Given 01/07/2022 8:42 AM EDT 4 mL Inactive Administered Medications - up to 3 most recent administrations Medication Order MAR Action Action Date Dose Rate Site betamethasone acetate-betamethasone sodium phosphate 6 mg injection (CELESTONE) 6 mg, Injection - FOR ORTHO USE ONLY, ONE TIME INJECTION, 1 dose, Starting on Vickie 02/18/22 at 1152, Until Vickie 8 at 1152 Given 02/18/2022 11:52 AM EDT 6 mg lidocaine (PF) 10 mg/mL (1 %) 4 mL injection (XYLOCAINE) 4 mL, Injection - FOR ORTHO USE ONLY, ONE TIME INJECTION, 1 dose, Starting on Vickie 02/18/22 at 1152, Until Vickie 8 at 1152 Given 02/18/2022 11:52 AM EDT 4 mL Additional Source Comments (unrecognized sect ion and content) No Status Records FoundNo Status Records FoundNo Status Records FoundNo Status Records FoundNo Status Records FoundNo Status Records Found INFORMATION SOURCE (unrecogn ized section and content) DATE CREATED AUTHOR 10/05/2020 [facility] DATE CREATED AUTHOR AUTHOR'S ORGANIZ ATION 03/27/2021 [facility] DATE CREATED AUTHOR AUTHOR'S ORGANIZ ATION 10/02/2021 [facility] DATE CREATED AUTHOR AUTHOR'S ORGANIZ ATION 07/18/2024 [facility] DATE CREATED AUTHOR AUTHOR'S ORGANIZ ATION 11/10/2024 [facility] DATE CREATED AUTHOR AUTHOR'S ORGANIZ ATION 01/01/2025 [facility] Source Comments (unrecognize d section and content) In the event this informatio n is protected by the Federal Confidentiality of Alcohol and Drug Abuse Patient Records regulations: The Federal rules restrict any use of the information to criminally investigate or prosecute any alcohol or drug abuse patient.[facility] the event this information is protected by the Federal Confidentiality of Alcohol and Drug Abuse Patient Records regulations: The Federal rules restrict any use of the information to criminally investigate or prosecute any alcohol or drug abuse patient.[facility] the event this information is protected by the Federal Confidentiality of Alcohol and Drug Abuse Patient Records regulations: The Federal rules restrict any use of the information to criminally investigate or prosecute any alcohol or drug abuse patient.[facility] the event this information is protected by the Federal Confidentiality of Alcohol and Drug Abuse Patient Records regulations: The Federal rules restrict any use of the information to criminally investigate or prosecute any alcohol or drug abuse patient.[facility] the event this information is protected by the Federal Confidentiality of Alcohol and Drug Abuse Patient Records regulations: The Federal rules restrict any use of the information to criminally investigate or prosecute any alcohol or drug abuse patient.[facility] the event this information is protected by the Federal Confidentiality of Alcohol and Drug Abuse Patient Records regulations: The Federal rules restrict any use of the information to criminally investigate or prosecute any alcohol or drug abuse patient.[facility] the event this information is protected by the Federal Confidentiality of Alcohol and Drug Abuse Patient Records regulations: The Federal rules restrict any use of the information to criminally investigate or prosecute any alcohol or drug abuse patient.[facility] the event this information is protected by the Federal Confidentiality of Alcohol and Drug Abuse Patient Records regulations: The Federal rules restrict any use of the information to criminally investigate or prosecute any alcohol or drug abuse patient.[facility] the event this information is protected by the Federal Confidentiality of Alcohol and Drug Abuse Patient Records regulations: The Federal rules restrict any use of the information to criminally investigate or prosecute any alcohol or drug abuse patient.[facility] the event this information is protected by the Federal Confidentiality of Alcohol and Drug Abuse Patient Records regulations: The Federal rules restrict any use of the information to criminally investigate or prosecute any alcohol or drug abuse patient.[facility] the event this information is protected by the Federal Confidentiality of Alcohol and Drug Abuse Patient Records regulations: The Federal rules restrict any use of the information to criminally investigate or prosecute any alcohol or drug abuse patient.[facility] the event this information is protected by the Federal Confidentiality of Alcohol and Drug Abuse Patient Records regulations: The Federal rules restrict any use of the information to criminally investigate or prosecute any alcohol or drug abuse patient.[facility] the event this information is protected by the Federal Confidentiality of Alcohol and Drug Abuse Patient Records regulations: The Federal rules restrict any use of the information to criminally investigate or prosecute any alcohol or drug abuse patient.[facility]In the event this information is protected by the Federal Confidentiality of Alcohol and Drug Abuse Patient Records regulations: The Federal rules restrict any use of the information to criminally investigate or prosecute any alcohol or drug abuse patient.[facility] the event this information is protected by the Federal Confidentiality of Alcohol and Drug Abuse Patient Records regulations: The Federal rules restrict any use of the information to criminally investigate or prosecute any alcohol or drug abuse patient.[facility]In the event this information is protected by the Federal Confidentiality of Alcohol and Drug Abuse Patient Records regulations: The Federal rules restrict any use of the information to criminally investigate or prosecute any alcohol or drug abuse patient.[facility]In the event this information is protected by the Federal Confidentiality of Alcohol and Drug Abuse Patient Records regulations: The Federal rules restrict any use of the information to criminally investigate or prosecute any alcohol or drug abuse patient.[facility]In the event this information is protected by the Federal Confidentiality of Alcohol and Drug Abuse Patient Records regulations: The Federal rules restrict any use of the information to criminally investigate or prosecute any alcohol or drug abuse patient.[facility] HospitalIn the event this information is protected by the Federal Confidentiality of Alcohol and Drug Abuse Patient Records regulations: The Federal rules restrict any use of the information to criminally investigate or prosecute any alcohol or drug abuse patient.[facility] HospitalIn the event this information is protected by the Federal Confidentiality of Alcohol and Drug Abuse Patient Records regulations: The Federal rules restrict any use of the information to criminally investigate or prosecute any alcohol or drug abuse patient.[facility] HospitalIn the event this information is protected by the Federal Confidentiality of Alcohol and Drug Abuse Patient Records regulations: The Federal rules restrict any use of the information to criminally investigate or prosecute any alcohol or drug abuse patient.[facility] HospitalIn the event this information is protected by the Federal Confidentiality of Alcohol and Drug Abuse Patient Records regulations: The Federal rules restrict any use of the information to criminally investigate or prosecute any alcohol or drug abuse patient.[facility] HospitalIn the event this information is protected by the Federal Confidentiality of Alcohol and Drug Abuse Patient Records regulations: The Federal rules restrict any use of the information to criminally investigate or prosecute any alcohol or drug abuse patient.[facility] HospitalIn the event this information is protected by the Federal Confidentiality of Alcohol and Drug Abuse Patient Records regulations: The Federal rules restrict any use of the information to criminally investigate or prosecute any alcohol or drug abuse patient.[facility] the event this information is protected by the Federal Confidentiality of Alcohol and Drug Abuse Patient Records regulations: The Federal rules restrict any use of the information to criminally investigate or prosecute any alcohol or drug abuse patient.[facility] HospitalIn the event this information is protected by the Federal Confidentiality of Alcohol and Drug Abuse Patient Records regulations: The Federal rules restrict any use of the information to criminally investigate or prosecute any alcohol or drug abuse patient.[facility] HospitalIn the event this information is protected by the Federal Confidentiality of Alcohol and Drug Abuse Patient Records regulations: The Federal rules restrict any use of the information to criminally investigate or prosecute any alcohol or drug abuse patient.[facility] HospitalIn the event this information is protected by the Federal Confidentiality of Alcohol and Drug Abuse Patient Records regulations: The Federal rules restrict any use of the information to criminally investigate or prosecute any alcohol or drug abuse patient.[facility] HospitalIn the event this information is protected by the Federal Confidentiality of Alcohol and Drug Abuse Patient Records regulations: The Federal rules restrict any use of the information to criminally investigate or prosecute any alcohol or drug abuse patient.[facility] HospitalIn the event this information is protected by the Federal Confidentiality of Alcohol and Drug Abuse Patient Records regulations: The Federal rules restrict any use of the information to criminally investigate or prosecute any alcohol or drug abuse patient.[facility] HospitalIn the event this information is protected by the Federal Confidentiality of Alcohol and Drug Abuse Patient Records regulations: The Federal rules restrict any use of the information to criminally investigate or prosecute any alcohol or drug abuse patient.[facility] HospitalIn the event this information is protected by the Federal Confidentiality of Alcohol and Drug Abuse Patient Records regulations: The Federal rules restrict any use of the information to criminally investigate or prosecute any alcohol or drug abuse patient.[facility] HospitalIn the event this information is protected by the Federal Confidentiality of Alcohol and Drug Abuse Patient Records regulations: The Federal rules restrict any use of the information to criminally investigate or prosecute any alcohol or drug abuse patient.[facility] HospitalIn the event this information is protected by the Federal Confidentiality of Alcohol and Drug Abuse Patient Records regulations: The Federal rules restrict any use of the information to criminally investigate or prosecute any alcohol or drug abuse patient.[facility] HospitalIn the event this information is protected by the Federal Confidentiality of Alcohol and Drug Abuse Patient Records regulations: The Federal rules restrict any use of the information to criminally investigate or prosecute any alcohol or drug abuse patient.[facility] HospitalIn the event this information is protected by the Federal Confidentiality of Alcohol and Drug Abuse Patient Records regulations: The Federal rules restrict any use of the information to criminally investigate or prosecute any alcohol or drug abuse patient.[facility] HospitalIn the event this information is protected by the Federal Confidentiality of Alcohol and Drug Abuse Patient Records regulations: The Federal rules restrict any use of the information to criminally investigate or prosecute any alcohol or drug abuse patient.[facility] HospitalIn the event this information is protected by the Federal Confidentiality of Alcohol and Drug Abuse Patient Records regulations: The Federal rules restrict any use of the information to criminally investigate or prosecute any alcohol or drug abuse patient.[facility] HospitalIn the event this information is protected by the Federal Confidentiality of Alcohol and Drug Abuse Patient Records regulations: The Federal rules restrict any use of the information to criminally investigate or prosecute any alcohol or drug abuse patient.[facility] HospitalIn the event this information is protected by the Federal Confidentiality of Alcohol and Drug Abuse Patient Records regulations: The Federal rules restrict any use of the information to criminally investigate or prosecute any alcohol or drug abuse patient.[facility] HospitalIn the event this information is protected by the Federal Confidentiality of Alcohol and Drug Abuse Patient Records regulations: The Federal rules restrict any use of the information to criminally investigate or prosecute any alcohol or drug abuse patient.[facility] HospitalIn the event this information is protected by the Federal Confidentiality of Alcohol and Drug Abuse Patient Records regulations: The Federal rules restrict any use of the information to criminally investigate or prosecute any alcohol or drug abuse patient.[facility] HospitalIn the event this information is protected by the Federal Confidentiality of Alcohol and Drug Abuse Patient Records regulations: The Federal rules restrict any use of the information to criminally investigate or prosecute any alcohol or drug abuse patient.[facility] HospitalIn the event this information is protected by the Federal Confidentiality of Alcohol and Drug Abuse Patient Records regulations: The Federal rules restrict any use of the information to criminally investigate or prosecute any alcohol or drug abuse patient.[facility] HospitalIn the event this information is protected by the Federal Confidentiality of Alcohol and Drug Abuse Patient Records regulations: The Federal rules restrict any use of the information to criminally investigate or prosecute any alcohol or drug abuse patient.[facility] HospitalIn the event this information is protected by the Federal Confidentiality of Alcohol and Drug Abuse Patient Records regulations: The Federal rules restrict any use of the information to criminally investigate or prosecute any alcohol or drug abuse patient.[facility] HospitalIn the event this information is protected by the Federal Confidentiality of Alcohol and Drug Abuse Patient Records regulations: The Federal rules restrict any use of the information to criminally investigate or prosecute any alcohol or drug abuse patient.[facility] HospitalIn the event this information is protected by the Federal Confidentiality of Alcohol and Drug Abuse Patient Records regulations: The Federal rules restrict any use of the information to criminally investigate or prosecute any alcohol or drug abuse patient.[facility] HospitalIn the event this information is protected by the Federal Confidentiality of Alcohol and Drug Abuse Patient Records regulations: The Federal rules restrict any use of the information to criminally investigate or prosecute any alcohol or drug abuse patient.[facility] HospitalIn the event this information is protected by the Federal Confidentiality of Alcohol and Drug Abuse Patient Records regulations: The Federal rules restrict any use of the information to criminally investigate or prosecute any alcohol or drug abuse patient.[facility] HospitalIn the event this information is protected by the Federal Confidentiality of Alcohol and Drug Abuse Patient Records regulations: The Federal rules restrict any use of the information to criminally investigate or prosecute any alcohol or drug abuse patient.[facility] HospitalIn the event this information is protected by the Federal Confidentiality of Alcohol and Drug Abuse Patient Records regulations: The Federal rules restrict any use of the information to criminally investigate or prosecute any alcohol or drug abuse patient.[facility] HospitalIn the event this information is protected by the Federal Confidentiality of Alcohol and Drug Abuse Patient Records regulations: The Federal rules restrict any use of the information to criminally investigate or prosecute any alcohol or drug abuse patient.[facility] HospitalIn the event this information is protected by the Federal Confidentiality of Alcohol and Drug Abuse Patient Records regulations: The Federal rules restrict any use of the information to criminally investigate or prosecute any alcohol or drug abuse patient.[facility] HospitalIn the event this information is protected by the Federal Confidentiality of Alcohol and Drug Abuse Patient Records regulations: The Federal rules restrict any use of the information to criminally investigate or prosecute any alcohol or drug abuse patient.[facility] HospitalIn the event this information is protected by the Federal Confidentiality of Alcohol and Drug Abuse Patient Records regulations: The Federal rules restrict any use of the information to criminally investigate or prosecute any alcohol or drug abuse patient.[facility] HospitalIn the event this information is protected by the Federal Confidentiality of Alcohol and Drug Abuse Patient Records regulations: The Federal rules restrict any use of the information to criminally investigate or prosecute any alcohol or drug abuse patient.[facility] HospitalIn the event this information is protected by the Federal Confidentiality of Alcohol and Drug Abuse Patient Records regulations: The Federal rules restrict any use of the information to criminally investigate or prosecute any alcohol or drug abuse patient.[facility] HospitalIn the event this information is protected by the Federal Confidentiality of Alcohol and Drug Abuse Patient Records regulations: The Federal rules restrict any use of the information to criminally investigate or prosecute any alcohol or drug abuse patient.[facility] HospitalIn the event this information is protected by the Federal Confidentiality of Alcohol and Drug Abuse Patient Records regulations: The Federal rules restrict any use of the information to criminally investigate or prosecute any alcohol or drug abuse patient.[facility] HospitalIn the event this information is protected by the Federal Confidentiality of Alcohol and Drug Abuse Patient Records regulations: The Federal rules restrict any use of the information to criminally investigate or prosecute any alcohol or drug abuse patient.[facility] HospitalIn the event this information is protected by the Federal Confidentiality of Alcohol and Drug Abuse Patient Records regulations: The Federal rules restrict any use of the information to criminally investigate or prosecute any alcohol or drug abuse patient.[facility] HospitalIn the event this information is protected by the Federal Confidentiality of Alcohol and Drug Abuse Patient Records regulations: The Federal rules restrict any use of the information to criminally investigate or prosecute any alcohol or drug abuse patient.[facility] HospitalIn the event this information is protected by the Federal Confidentiality of Alcohol and Drug Abuse Patient Records regulations: The Federal rules restrict any use of the information to criminally investigate or prosecute any alcohol or drug abuse patient.[facility] HospitalIn the event this information is protected by the Federal Confidentiality of Alcohol and Drug Abuse Patient Records regulations: The Federal rules restrict any use of the information to criminally investigate or prosecute any alcohol or drug abuse patient.[facility] HospitalIn the event this information is protected by the Federal Confidentiality of Alcohol and Drug Abuse Patient Records regulations: The Federal rules restrict any use of the information to criminally investigate or prosecute any alcohol or drug abuse patient.[facility] HospitalIn the event this information is protected by the Federal Confidentiality of Alcohol and Drug Abuse Patient Records regulations: The Federal rules restrict any use of the information to criminally investigate or prosecute any alcohol or drug abuse patient.[facility] HospitalIn the event this information is protected by the Federal Confidentiality of Alcohol and Drug Abuse Patient Records regulations: The Federal rules restrict any use of the information to criminally investigate or prosecute any alcohol or drug abuse patient.[facility] HospitalIn the event this information is protected by the Federal Confidentiality of Alcohol and Drug Abuse Patient Records regulations: The Federal rules restrict any use of the information to criminally investigate or prosecute any alcohol or drug abuse patient.[facility] HospitalIn the event this information is protected by the Federal Confidentiality of Alcohol and Drug Abuse Patient Records regulations: The Federal rules restrict any use of the information to criminally investigate or prosecute any alcohol or drug abuse patient.[facility] HospitalIn the event this information is protected by the Federal Confidentiality of Alcohol and Drug Abuse Patient Records regulations: The Federal rules restrict any use of the information to criminally investigate or prosecute any alcohol or drug abuse patient.[facility] HospitalIn the event this information is protected by the Federal Confidentiality of Alcohol and Drug Abuse Patient Records regulations: The Federal rules restrict any use of the information to criminally investigate or prosecute any alcohol or drug abuse patient.[facility] HospitalIn the event this information is protected by the Federal Confidentiality of Alcohol and Drug Abuse Patient Records regulations: The Federal rules restrict any use of the information to criminally investigate or prosecute any alcohol or drug abuse patient.[facility] HospitalIn the event this information is protected by the Federal Confidentiality of Alcohol and Drug Abuse Patient Records regulations: The Federal rules restrict any use of the information to criminally investigate or prosecute any alcohol or drug abuse patient.[facility] the event this information is protected by the Federal Confidentiality of Alcohol and Drug Abuse Patient Records regulations: The Federal rules restrict any use of the information to criminally investigate or prosecute any alcohol or drug abuse patient.[facility] HospitalIn the event this information is protected by the Federal Confidentiality of Alcohol and Drug Abuse Patient Records regulations: The Federal rules restrict any use of the information to criminally investigate or prosecute any alcohol or drug abuse patient.[facility] HospitalIn the event this information is protected by the Federal Confidentiality of Alcohol and Drug Abuse Patient Records regulations: The Federal rules restrict any use of the information to criminally investigate or prosecute any alcohol or drug abuse patient.[facility] HospitalIn the event this information is protected by the Federal Confidentiality of Alcohol and Drug Abuse Patient Records regulations: The Federal rules restrict any use of the information to criminally investigate or prosecute any alcohol or drug abuse patient.[facility] HospitalIn the event this information is protected by the Federal Confidentiality of Alcohol and Drug Abuse Patient Records regulations: The Federal rules restrict any use of the information to criminally investigate or prosecute any alcohol or drug abuse patient.[facility] HospitalIn the event this information is protected by the Federal Confidentiality of Alcohol and Drug Abuse Patient Records regulations: The Federal rules restrict any use of the information to criminally investigate or prosecute any alcohol or drug abuse patient.[facility] HospitalIn the event this information is protected by the Federal Confidentiality of Alcohol and Drug Abuse Patient Records regulations: The Federal rules restrict any use of the information to criminally investigate or prosecute any alcohol or drug abuse patient.[facility] HospitalIn the event this information is protected by the Federal Confidentiality of Alcohol and Drug Abuse Patient Records regulations: The Federal rules restrict any use of the information to criminally investigate or prosecute any alcohol or drug abuse patient.[facility] HospitalIn the event this information is protected by the Federal Confidentiality of Alcohol and Drug Abuse Patient Records regulations: The Federal rules restrict any use of the information to criminally investigate or prosecute any alcohol or drug abuse patient.[facility] HospitalIn the event this information is protected by the Federal Confidentiality of Alcohol and Drug Abuse Patient Records regulations: The Federal rules restrict any use of the information to criminally investigate or prosecute any alcohol or drug abuse patient.[facility] HospitalIn the event this information is protected by the Federal Confidentiality of Alcohol and Drug Abuse Patient Records regulations: The Federal rules restrict any use of the information to criminally investigate or prosecute any alcohol or drug abuse patient.[facility] HospitalIn the event this information is protected by the Federal Confidentiality of Alcohol and Drug Abuse Patient Records regulations: The Federal rules restrict any use of the information to criminally investigate or prosecute any alcohol or drug abuse patient.[facility] HospitalIn the event this information is protected by the Federal Confidentiality of Alcohol and Drug Abuse Patient Records regulations: The Federal rules restrict any use of the information to criminally investigate or prosecute any alcohol or drug abuse patient.[facility] HospitalIn the event this information is protected by the Federal Confidentiality of Alcohol and Drug Abuse Patient Records regulations: The Federal rules restrict any use of the information to criminally investigate or prosecute any alcohol or drug abuse patient.[facility] HospitalIn the event this information is protected by the Federal Confidentiality of Alcohol and Drug Abuse Patient Records regulations: The Federal rules restrict any use of the information to criminally investigate or prosecute any alcohol or drug abuse patient.[facility] HospitalIn the event this information is protected by the Federal Confidentiality of Alcohol and Drug Abuse Patient Records regulations: The Federal rules restrict any use of the information to criminally investigate or prosecute any alcohol or drug abuse patient.[facility] HospitalIn the event this information is protected by the Federal Confidentiality of Alcohol and Drug Abuse Patient Records regulations: The Federal rules restrict any use of the information to criminally investigate or prosecute any alcohol or drug abuse patient.[facility] HospitalIn the event this information is protected by the Federal Confidentiality of Alcohol and Drug Abuse Patient Records regulations: The Federal rules restrict any use of the information to criminally investigate or prosecute any alcohol or drug abuse patient.[facility] HospitalIn the event this information is protected by the Federal Confidentiality of Alcohol and Drug Abuse Patient Records regulations: The Federal rules restrict any use of the information to criminally investigate or prosecute any alcohol or drug abuse patient.[facility] HospitalIn the event this information is protected by the Federal Confidentiality of Alcohol and Drug Abuse Patient Records regulations: The Federal rules restrict any use of the information to criminally investigate or prosecute any alcohol or drug abuse patient.[facility] HospitalIn the event this information is protected by the Federal Confidentiality of Alcohol and Drug Abuse Patient Records regulations: The Federal rules restrict any use of the information to criminally investigate or prosecute any alcohol or drug abuse patient.[facility] HospitalIn the event this information is protected by the Federal Confidentiality of Alcohol and Drug Abuse Patient Records regulations: The Federal rules restrict any use of the information to criminally investigate or prosecute any alcohol or drug abuse patient.[facility] HospitalIn the event this information is protected by the Federal Confidentiality of Alcohol and Drug Abuse Patient Records regulations: The Federal rules restrict any use of the information to criminally investigate or prosecute any alcohol or drug abuse patient.[facility] HospitalIn the event this information is protected by the Federal Confidentiality of Alcohol and Drug Abuse Patient Records regulations: The Federal rules restrict any use of the information to criminally investigate or prosecute any alcohol or drug abuse patient.[facility] HospitalIn the event this information is protected by the Federal Confidentiality of Alcohol and Drug Abuse Patient Records regulations: The Federal rules restrict any use of the information to criminally investigate or prosecute any alcohol or drug abuse patient.[facility] HospitalIn the event this information is protected by the Federal Confidentiality of Alcohol and Drug Abuse Patient Records regulations: The Federal rules restrict any use of the information to criminally investigate or prosecute any alcohol or drug abuse patient.[facility] HospitalIn the event this information is protected by the Federal Confidentiality of Alcohol and Drug Abuse Patient Records regulations: The Federal rules restrict any use of the information to criminally investigate or prosecute any alcohol or drug abuse patient.[facility] HospitalIn the event this information is protected by the Federal Confidentiality of Alcohol and Drug Abuse Patient Records regulations: The Federal rules restrict any use of the information to criminally investigate or prosecute any alcohol or drug abuse patient.[facility] HospitalIn the event this information is protected by the Federal Confidentiality of Alcohol and Drug Abuse Patient Records regulations: The Federal rules restrict any use of the information to criminally investigate or prosecute any alcohol or drug abuse patient.[facility] HospitalIn the event this information is protected by the Federal Confidentiality of Alcohol and Drug Abuse Patient Records regulations: The Federal rules restrict any use of the information to criminally investigate or prosecute any alcohol or drug abuse patient.[facility] HospitalIn the event this information is protected by the Federal Confidentiality of Alcohol and Drug Abuse Patient Records regulations: The Federal rules restrict any use of the information to criminally investigate or prosecute any alcohol or drug abuse patient.[facility] HospitalIn the event this information is protected by the Federal Confidentiality of Alcohol and Drug Abuse Patient Records regulations: The Federal rules restrict any use of the information to criminally investigate or prosecute any alcohol or drug abuse patient.[facility] HospitalIn the event this information is protected by the Federal Confidentiality of Alcohol and Drug Abuse Patient Records regulations: The Federal rules restrict any use of the information to criminally investigate or prosecute any alcohol or drug abuse patient.[facility] HospitalIn the event this information is protected by the Federal Confidentiality of Alcohol and Drug Abuse Patient Records regulations: The Federal rules restrict any use of the information to criminally investigate or prosecute any alcohol or drug abuse patient.[facility] HospitalIn the event this information is protected by the Federal Confidentiality of Alcohol and Drug Abuse Patient Records regulations: The Federal rules restrict any use of the information to criminally investigate or prosecute any alcohol or drug abuse patient.[facility] HospitalIn the event this information is protected by the Federal Confidentiality of Alcohol and Drug Abuse Patient Records regulations: The Federal rules restrict any use of the information to criminally investigate or prosecute any alcohol or drug abuse patient.[facility] HospitalIn the event this information is protected by the Federal Confidentiality of Alcohol and Drug Abuse Patient Records regulations: The Federal rules restrict any use of the information to criminally investigate or prosecute any alcohol or drug abuse patient.[facility] HospitalIn the event this information is protected by the Federal Confidentiality of Alcohol and Drug Abuse Patient Records regulations: The Federal rules restrict any use of the information to criminally investigate or prosecute any alcohol or drug abuse patient.[facility] HospitalIn the event this information is protected by the Federal Confidentiality of Alcohol and Drug Abuse Patient Records regulations: The Federal rules restrict any use of the information to criminally investigate or prosecute any alcohol or drug abuse patient.[facility] HospitalIn the event this information is protected by the Federal Confidentiality of Alcohol and Drug Abuse Patient Records regulations: The Federal rules restrict any use of the information to criminally investigate or prosecute any alcohol or drug abuse patient.[facility] HospitalIn the event this information is protected by the Federal Confidentiality of Alcohol and Drug Abuse Patient Records regulations: The Federal rules restrict any use of the information to criminally investigate or prosecute any alcohol or drug abuse patient.[facility] HospitalIn the event this information is protected by the Federal Confidentiality of Alcohol and Drug Abuse Patient Records regulations: The Federal rules restrict any use of the information to criminally investigate or prosecute any alcohol or drug abuse patient.[facility] HospitalIn the event this information is protected by the Federal Confidentiality of Alcohol and Drug Abuse Patient Records regulations: The Federal rules restrict any use of the information to criminally investigate or prosecute any alcohol or drug abuse patient.[facility] HospitalIn the event this information is protected by the Federal Confidentiality of Alcohol and Drug Abuse Patient Records regulations: The Federal rules restrict any use of the information to criminally investigate or prosecute any alcohol or drug abuse patient.[facility] HospitalIn the event this information is protected by the Federal Confidentiality of Alcohol and Drug Abuse Patient Records regulations: The Federal rules restrict any use of the information to criminally investigate or prosecute any alcohol or drug abuse patient.[facility] HospitalIn the event this information is protected by the Federal Confidentiality of Alcohol and Drug Abuse Patient Records regulations: The Federal rules restrict any use of the information to criminally investigate or prosecute any alcohol or drug abuse patient.[facility] HospitalIn the event this information is protected by the Federal Confidentiality of Alcohol and Drug Abuse Patient Records regulations: The Federal rules restrict any use of the information to criminally investigate or prosecute any alcohol or drug abuse patient.[facility] HospitalIn the event this information is protected by the Federal Confidentiality of Alcohol and Drug Abuse Patient Records regulations: The Federal rules restrict any use of the information to criminally investigate or prosecute any alcohol or drug abuse patient.[facility] HospitalIn the event this information is protected by the Federal Confidentiality of Alcohol and Drug Abuse Patient Records regulations: The Federal rules restrict any use of the information to criminally investigate or prosecute any alcohol or drug abuse patient.[facility] HospitalIn the event this information is protected by the Federal Confidentiality of Alcohol and Drug Abuse Patient Records regulations: The Federal rules restrict any use of the information to criminally investigate or prosecute any alcohol or drug abuse patient.[facility] the event this information is protected by the Federal Confidentiality of Alcohol and Drug Abuse Patient Records regulations: The Federal rules restrict any use of the information to criminally investigate or prosecute any alcohol or drug abuse patient.[facility] HospitalIn the event this information is protected by the Federal Confidentiality of Alcohol and Drug Abuse Patient Records regulations: The Federal rules restrict any use of the information to criminally investigate or prosecute any alcohol or drug abuse patient.[facility]In the event this information is protected by the Federal Confidentiality of Alcohol and Drug Abuse Patient Records regulations: The Federal rules restrict any use of the information to criminally investigate or prosecute any alcohol or drug abuse patient.[facility] HospitalIn the event this information is protected by the Federal Confidentiality of Alcohol and Drug Abuse Patient Records regulations: The Federal rules restrict any use of the information to criminally investigate or prosecute any alcohol or drug abuse patient.[facility] HospitalIn the event this information is protected by the Federal Confidentiality of Alcohol and Drug Abuse Patient Records regulations: The Federal rules restrict any use of the information to criminally investigate or prosecute any alcohol or drug abuse patient.[facility] HospitalIn the event this information is protected by the Federal Confidentiality of Alcohol and Drug Abuse Patient Records regulations: The Federal rules restrict any use of the information to criminally investigate or prosecute any alcohol or drug abuse patient.[facility] HospitalIn the event this information is protected by the Federal Confidentiality of Alcohol and Drug Abuse Patient Records regulations: The Federal rules restrict any use of the information to criminally investigate or prosecute any alcohol or drug abuse patient.[facility] [facility] HospitalIn the event this information is protected by the Federal Confidentiality of Alcohol and Drug Abuse Patient Records regulations: The Federal rules restrict any use of the information to criminally investigate or prosecute any alcohol or drug abuse patient.[facility] the event this information is protected by the Federal Confidentiality of Alcohol and Drug Abuse Patient Records regulations: The Federal rules restrict any use of the information to criminally investigate or prosecute any alcohol or drug abuse patient.[facility] HospitalIn the event this information is protected by the Federal Confidentiality of Alcohol and Drug Abuse Patient Records regulations: The Federal rules restrict any use of the information to criminally investigate or prosecute any alcohol or drug abuse patient.[facility] HospitalIn the event this information is protected by the Federal Confidentiality of Alcohol and Drug Abuse Patient Records regulations: The Federal rules restrict any use of the information to criminally investigate or prosecute any alcohol or drug abuse patient.[facility] HospitalIn the event this information is protected by the Federal Confidentiality of Alcohol and Drug Abuse Patient Records regulations: The Federal rules restrict any use of the information to criminally investigate or prosecute any alcohol or drug abuse patient.[facility] HospitalIn the event this information is protected by the Federal Confidentiality of Alcohol and Drug Abuse Patient Records regulations: The Federal rules restrict any use of the information to criminally investigate or prosecute any alcohol or drug abuse patient.[facility] HospitalIn the event this information is protected by the Federal Confidentiality of Alcohol and Drug Abuse Patient Records regulations: The Federal rules restrict any use of the information to criminally investigate or prosecute any alcohol or drug abuse patient.[facility] HospitalIn the event this information is protected by the Federal Confidentiality of Alcohol and Drug Abuse Patient Records regulations: The Federal rules restrict any use of the information to criminally investigate or prosecute any alcohol or drug abuse patient.[facility] HospitalIn the event this information is protected by the Federal Confidentiality of Alcohol and Drug Abuse Patient Records regulations: The Federal rules restrict any use of the information to criminally investigate or prosecute any alcohol or drug abuse patient.[facility] Reason for Visit (unrecogniz ed section and content) Reason Comments Radiology CT Specialty Diagnoses / Procedures Referred By Contac t Referred To Contact CT IMAGING Diagnoses Encounter for screening for lung cancer Tobacco use current Procedures CT LUNG SCREEN WO IVCON COMPUTED TOMOGRAPHY THORAX LW DOSE LNG CA SCR Bee- Madina Majano, LEDA.WATER PUMP INSTALLER [address] [place] [address] Ct Imaging [place] [address] Referral ID Status Reason Start Date Expiration Date V isits Requested Visits Authorized [id number] Closed Auto-Generate d Referral 06/18/2024 07/18/2025 1 1 Reason Comments PT Discharge Specialty Diagnoses / Procedures Referred By Contac t Referred To Contact [facility] Diagnoses S/P shoulder surgery Procedures CONSULT TO PHYSICAL THERAPY PHYSICAL THERAPY EVALUATION HIGH COMPLEX 45 MINS Jocy Wadsworth PA-C [address] [place] [address] [facility] [place] [address] [place] [address] Referral ID Status Reason Start Date Expiration Date Visits Requested Visits Authorized [id number] Authorized PCP Requested Referral Auto-Generate d Referral 2 05/31/2023 99 99 Reason Onset Date Comments Refill Request 10/21/2021 Reason Comments Cardiac Rehab Reason Comments 6 Month Exam Reason Comments Cardiac Rehab 30 day assessment Reason Comments Pain Established Patient Reason Comments Cardiac Rehab discharge Reason Comments Results - Mri Follow Up Reason Comments Established Patient Injections Reason Comments New Pain Specialty Diagnoses / Procedures Referred By Contac t Referred To Contact Orthopedics / ORTHOPAEDIC SURGERY Diagnoses surgery consult Procedures JULISSA ACUTE Florian Chavez MD [address] [place] [address] Yang Altamirano MD [address] [facility] [place] [address] Referral ID Status Reason Start Date Expiration Date V isits Requested Visits Authorized [id number] Pending Review 04/02/2022 07/01/2022 1 1 Reason Comments Medication Question Reason Comments Patient Question Medication/dental wo rk Reason Comments Refill Request Reason Onset Date Comments 6 Month Exam Immunizations 05/14/2022 Flu vaccination Reason Comments Preparations For Surgery Reason Comments Appointment Reason Comments Consult Reason Comments Established Patient Follow Up Post Op Reason Comments Physical Therapy Reason Onset Date Comments cdm 07/21/2022 enrollment Reason Onset Date Comments Community Monitoring Outreach 07/29/2022 CD M Telephonic Outreach Reason Comments PT Progress Note Specialty Diagnoses / Procedures Referred By Contac t Referred To Contact [facility] Diagnoses S/P shoulder surgery Procedures CONSULT TO PHYSICAL THERAPY PHYSICAL THERAPY EVALUATION HIGH COMPLEX 45 MINS Jocy Wadsworth PA-C [address] [place] [address] [facility] [place] [address] [place] [address] Reason Onset Date Comments Community Monitoring Outreach 09/01/2022 CD M Telephonic Outreach Reason Onset Date Comments Community Monitoring Outreach 09/02/2022 CD M Telephonic Outreach Reason Onset Date Comments Refill Request Refill Request 10/12/2022 Reason Onset Date Comments Community Monitoring Outreach 10/26/2022 CD M Telephonic Outreach Reason Onset Date Comments Opened In Error 10/26/2022 Reason Onset Date Comments Refill Request 10/28/2022 Reason Onset Date Comments Refill Request 10/28/2022 Refill Request 11/08/2022 Reason Comments 6 Month Exam Reason Comments Results Reason Comments New Patient LCS Reason Onset Date Comments Community Monitoring Outreach 02/09/2023 CD M Telephonic Outreach Reason Onset Date Comments Community Monitoring Outreach 02/11/2023 CD M Telephonic Outreach Reason Onset Date Comments Community Monitoring Outreach 04/28/2023 CD M Telephonic Outreach Reason Onset Date Comments 6 Month Exam Immunizations 05/13/2023 Flu vaccination Reason Comments Radiology US Specialty Diagnoses / Procedures Referred By Ginny t Referred To Contact US IMAGING Diagnoses Screening for AAA (abdominal aortic aneurysm) Procedures US SCREENING FOR AAA (2017) US ABDOMINAL AORTA REAL TIME SCREEN STUDY AAA Mark Ramirez MD [address] [place] [address] [place] [address] Referral ID Status Reason Start Date Expiration Date V isits Requested Visits Authorized [id number] Closed Auto-Generate d Referral 11/12/2022 12/12/2023 1 1 Reason Onset Date Comments Community Monitoring Outreach 06/10/2023 CD M Telephonic Outreach Reason Onset Date Comments Refill Request 06/10/2023 Reason Onset Date Comments Community Monitoring Outreach 09/07/2023 CD M Telephonic Outreach Reason Onset Date Comments Community Monitoring Outreach 09/08/2023 CD M Telephonic Outreach Reason Onset Date Comments Community Monitoring Outreach 09/09/2023 CD M Telephonic Outreach Reason Onset Date Comments Opened In Error 09/30/2023 Reason Onset Date Comments Community Monitoring Outreach 10/03/2023 CD M Telephonic Outreach Reason Onset Date Comments Community Monitoring Outreach 11/16/2023 CD M Reason Onset Date Comments Community Monitoring Outreach 11/17/2023 CD M Reason Onset Date Comments Refill Request 11/17/2023 Reason Comments 6 Month Exam Reason Onset Date Comments Community Monitoring Outreach 12/21/2023 CD M Telephonic Outreach Reason Comments Colonoscopy Consult Specialty Diagnoses / Procedures Referred By Ginny montano Referred To Contact General Surgery Diagnoses Screening for colon cancer Procedures CONSULT TO GENERAL SURGERY OFFICE/OUTPATIENT [facility] MDM 60 MINUTES Mark Ramirez MD [address] [place] [address] Referral ID Status Reason Start Date Expiration Date V isits Requested Visits Authorized [id number] Closed PCP Requested Referral 11/24/2023 11/23/2024 1 1 Reason Onset Date Comments Refill Request 12/26/2023 Reason Onset Date Comments Community Monitoring Outreach 01/24/2024 CD M Telephonic Outreach Reason Onset Date Comments Community Monitoring Outreach 03/01/2024 CD M Telephonic Outreach Reason Onset Date Comments Community Monitoring Outreach 03/21/2024 CD M Telephonic Outreach Reason Onset Date Comments Community Monitoring Outreach 03/26/2024 CD M Telephonic Outreach Reason Onset Date Comments Community Monitoring Outreach 04/26/2024 CD M Telephonic Outreach Reason Comments New Patient Room 15Self referral H/o heart issuesPast Dr Gomez Reason Onset Date Comments 6 Month Exam Immunizations 05/25/2024 Flu vaccination Reason Comments Results Lab work Reason Onset Date Comments Opened In Error 06/20/2024 Reason Onset Date Comments Community Monitoring Outreach 06/27/2024 CD M Telephonic Outreach Reason Onset Date Comments Community Monitoring Outreach 07/02/2024 CD M Telephonic Outreach Reason Onset Date Comments Opened In Error 06/29/2024 Reason Comments Follow Up Reason Comments Consult Lung cancer screenin gIs needing a refill of the albuterol inhaler Reason Comments Spirometry Specialty Diagnoses / Procedures [facility] [place] Diagnoses Shortness of breath Procedures LUNG VOLUMES Madina Majano, LEDA.WATER PUMP INSTALLER [address] [place] [address] [address] Referral ID Status Reason Start Date Expiration Date V isits Requested Visits Authorized [id number] Closed Auto-Generate d Referral 08/13/2024 09/12/2025 1 1 Specialty Diagnoses / Procedures [facility] To [facility] [place] Diagnoses Shortness of breath Procedures SPIROMETRY WITH DILATOR IF OBSTRUCTED BRNCDILAT RSPSE SPMTRY PRE&POST-BRNCDILAT ADMN Madina Majano, GEOGRAPHY DEPARTMENT CHAIR.WATER PUMP INSTALLER [address] [place] [address] [address] Referral ID Status Reason Start Date Expiration Date V isits Requested Visits Authorized [id number] Closed Auto-Generate d Referral 08/13/2024 09/12/2025 1 1 Specialty Diagnoses / Procedures [facility] To [facility] [place] Diagnoses Shortness of breath Procedures LUNG DIFFUSION CAPACITY (DLCO) DIFFUSING CAPACITY Madina Majano, LEDA.WATER PUMP INSTALLER [address] [place] [address] [facility] [place] [address] [place] [address] Referral ID Status Reason Start Date Expiration Date V isits Requested Visits Authorized [id number] Closed Auto-Generate d Referral 08/13/2024 09/12/2025 1 1 Reason Comments New Patient COPD evaluation COPD Reason Comments Results Night oxygen testing Reason Comments Cardiac Clearance Reason Comments Forms Dr Melissa Gongora Medical Clearance for Dental Treatment Reason Comments F/U 6 Month Reason Comments Established Patient 3 month follow up [place] PD Reason Comments Forms Care Medical, reques t for wrist hand orthosis supplies Care Teams (unrecognized sec tion and content) Mobile Service Rv Technician Relationship Specialty Start Date End Date Mark Ramirez MD [address] [place] [address] PCP - General Family Practice 12/20/14 Mobile Service Rv Technician Relationship Specialty Start Date End Date Mark Ramirez MD [address] [place] [address] PCP - General Family Practice 12/20/14 Mobile Service Rv Technician Relationship Specialty Start Date End Date Mark Ramirez MD [address] [place] [address] PCP - General Family Practice 12/20/14 Mobile Service Rv Technician Relationship Specialty Start Date End Date Mark Ramirez MD [address] [place] [address] PCP - General Family Practice 12/20/14 Mobile Service Rv Technician Relationship Specialty Start Date End Date Mark Ramirez MD [address] [place] [address] PCP - General Family Practice 12/20/14 Mobile Service Rv Technician Relationship Specialty Start Date End Date Mark Ramirez MD [address] [place] [address] PCP - General Family Practice 12/20/14 Mobile Service Rv Technician Relationship Specialty Start Date End Date Mark Ramirez MD [address] [facility] [place] [address] PCP - General Family Practice 12/20/14 Mobile Service Rv Technician Relationship Specialty Start Date End Date Mark Ramirez MD [address] [facility] [place] [address] PCP - General Family Practice 12/20/14 Mobile Service Rv Technician Relationship Specialty Start Date End Date Mrak Ramirez MD [address] [place] [place] [address] PCP - General Family Practice 12/20/14 Mobile Service Rv Technician Relationship Specialty Start Date End Date Mark Ramirez MD [facility] [place] [address] PCP - General Family Practice 12/20/14 Mobile Service Rv Technician Relationship Specialty Start Date End Date Mark Ramirez MD [address] [facility] [place] [address] PCP - General Family Practice 12/20/14 Mobile Service Rv Technician Relationship Specialty Start Date End Date Mark Ramirez MD [address] [place] [place] [address] PCP - General Family Practice 12/20/14 Mobile Service Rv Technician Relationship Specialty Start Date End Date Mark Ramirez MD [address] [place] [place] [address] PCP - General Family Practice 12/20/14 Mobile Service Rv Technician Relationship Specialty Start Date End Date Mark Ramirez MD [address] [facility] [place] [address] PCP - General Family Practice 12/20/14 Mobile Service Rv Technician Relationship Specialty Start Date End Date Mark Ramirez MD [facility] [place] [address] PCP - General Family Practice 12/20/14 Mobile Service Rv Technician Relationship Specialty Start Date End Date Mark Ramirez MD [address] [place] [place] [address] PCP - General Family Practice 12/20/14 Mobile Service Rv Technician Relationship Specialty Start Date End Date Mark Ramirez MD [address] [place] [place] [address] PCP - General Family Practice 12/20/14 Mobile Service Rv Technician Relationship Specialty Start Date End Date Mark Ramirez MD [address] [place] [place] [address] PCP - General Family Practice 12/20/14 Mobile Service Rv Technician Relationship Specialty Start Date End Date Mark Ramirez MD [facility] [place] [address] PCP - General Family Practice 12/20/14 Mobile Service Rv Technician Relationship Specialty Start Date End Date Mark Ramirez MD [address] [place] [place] [address] PCP - General Family Practice 12/20/14 Mobile Service Rv Technician Relationship Specialty Start Date End Date Mark Ramirez MD [address] [place] [place] [address] PCP - General Family Practice 12/20/14 Mobile Service Rv Technician Relationship Specialty Start Date End Date Mark Ramirez MD [address] [place] [place] [address] PCP - General Family Practice 12/20/14 Mobile Service Rv Technician Relationship Specialty Start Date End Date Mark Ramirez MD [address] [place] [place] [address] PCP - General Family Practice 12/20/14 Mobile Service Rv Technician Relationship Specialty Start Date End Date Mark Ramirez MD [address] [place] [address] PCP - General Family Practice 12/20/14 Mobile Service Rv Technician Relationship Specialty Start Date End Date Mark Ramirez MD [address] [place] [place] [address] PCP - General Family Practice 12/20/14 Mobile Service Rv Technician Relationship Specialty Start Date End Date Mark Ramirez MD [address] [place] [place] [address] PCP - General Family Practice 12/20/14 Mobile Service Rv Technician Relationship Specialty Start Date End Date Mark Ramirez MD [address] [place] [address], [place] [address] PCP - General Family Practice 12/20/14 Mobile Service Rv Technician Relationship Specialty Start Date End Date Mark Ramirez MD [address] [place] [address], [place] [address] PCP - General Family Practice 12/20/14 Mobile Service Rv Technician Relationship Specialty Start Date End Date Mark Ramirez MD [facility] [place] [address] PCP - General Family Practice 12/20/14 Mobile Service Rv Technician Relationship Specialty Start Date End Date Mark Ramirez MD [facility] [place] [address] PCP - General Family Practice 12/20/14 Mobile Service Rv Technician Relationship Specialty Start Date End Date Mark Ramirez MD [address] [place] [place] [address] PCP - General Family Practice 12/20/14 Mobile Service Rv Technician Relationship Specialty Start Date End Date Mark Ramirez MD [address] [place] [address], [place] [address] PCP - General Family Medicine 12/20/14 Mobile Service Rv Technician Relationship Specialty Start Date End Date Mark Ramirez MD [address] [facility] [place] [address] PCP - General Family Medicine 12/20/14 Mobile Service Rv Technician Relationship Specialty Start Date End Date Mark Ramirez MD [address] [place] [place] [address] PCP - General Family Medicine 12/20/14 Mobile Service Rv Technician Relationship Specialty Start Date End Date Mark Ramirez MD [address] [place] [place] [address] PCP - General Family Medicine 12/20/14 Mobile Service Rv Technician Relationship Specialty Start Date End Date Mark Ramirez MD [address] [place] [place] [address] PCP - General Family Medicine 12/20/14 Mobile Service Rv Technician Relationship Specialty Start Date End Date Mark Ramirez MD [address] [place] [place] [address] PCP - General Family Medicine 12/20/14 Mobile Service Rv Technician Relationship Specialty Start Date End Date Mark Ramirez MD [address] [place] [place] [address] PCP - General Family Medicine 12/20/14 Mobile Service Rv Technician Relationship Specialty Start Date End Date Mark Ramirez MD [address] [place] [place] [address] PCP - General Family Medicine 12/20/14 Mobile Service Rv Technician Relationship Specialty Start Date End Date Mark Ramirez MD [address] [place] [address] PCP - General Family Medicine 12/20/14 Mobile Service Rv Technician Relationship Specialty Start Date End Date Mark Ramirez MD [address] [place] [place] [address] PCP - General Family Medicine 12/20/14 Luz Mac project control analystFiber Machine Tender Family Medicine 07/27/22 Mobile Service Rv Technician Relationship Specialty Start Date End Date Mark Ramirez MD [address] [place] [place] [address] PCP - General Family Medicine 12/20/14 Luz Mac project control analystFiber Machine Tender Family Medicine 07/27/22 Mobile Service Rv Technician Relationship Specialty Start Date End Date Mark Ramirez MD [address] [place] [place] [address] PCP - General Family Medicine 12/20/14 Luz Mac, project control analystFiber Machine Tender Family Medicine 07/27/22 Mobile Service Rv Technician Relationship Specialty Start Date End Date Mark Ramirez MD [address] [place] [place] [address] PCP - General Family Medicine 12/20/14 Luz Mac project control analystFiber Machine Tender Family Medicine 07/27/22 Mobile Service Rv Technician Relationship Specialty Start Date End Date Mark Ramirez MD [address] [place] [address] PCP - General Family Medicine 12/20/14 Luz Mac project control analystFiber Machine Tender Family Medicine 07/27/22 Mobile Service Rv Technician Relationship Specialty Start Date End Date Mark Ramirez MD [address] [place] [place] [address] PCP - General Family Medicine 12/20/14 Luz Mac project control analystFiber Machine Tender Family Medicine 07/27/22 Mobile Service Rv Technician Relationship Specialty Start Date End Date Mark Ramirez MD [address] [place] [address] PCP - General Family Medicine 12/20/14 Luz Mac, project control analystFiber Machine Tender Family Medicine 07/27/22 Mobile Service Rv Technician Relationship Specialty Start Date End Date Mark Ramirez MD [address] [place] [address] PCP - General Family Medicine 12/20/14 Luz Mac, project control analystFiber Machine Tender Family Medicine 07/27/22 Mobile Service Rv Technician Relationship Specialty Start Date End Date Mark Ramirez MD [address] [place] [place] [address] PCP - General Family Medicine 12/20/14 Luz Mac project control analystFiber Machine Tender Family Medicine 07/27/22 Mobile Service Rv Technician Relationship Specialty Start Date End Date Mark Ramirez MD [address] [place] [place] [address] PCP - General Family Medicine 12/20/14 Luz Mac project control analystFiber Machine Tender Family Medicine 07/27/22 Mobile Service Rv Technician Relationship Specialty Start Date End Date Mark Ramirez MD [address] [facility] [place] [address] PCP - General Family Medicine 12/20/14 Luz Mac project control analystFiber Machine Tender Family Medicine 07/27/22 Mobile Service Rv Technician Relationship Specialty Start Date End Date Mark Ramirez MD [address] [place] [place] [address] PCP - General Family Medicine 12/20/14 Luz Mac project control analystFiber Machine Tender Family Medicine 07/27/22 Mobile Service Rv Technician Relationship Specialty Start Date End Date Mark Ramirez MD [address] [place] [address] PCP - General Family Medicine 12/20/14 Luz Mac project control analystFiber Machine Tender Family Medicine 07/27/22 Mobile Service Rv Technician Relationship Specialty Start Date End Date Mark Ramirez MD [address] [place] [address] PCP - General Family Medicine 12/20/14 Luz Mac project control analystFiber Machine Tender Family Medicine 07/27/22 Mobile Service Rv Technician Relationship Specialty Start Date End Date Mark Ramirez MD [address] [place] [address] PCP - General Family Medicine 12/20/14 Luz Mac, project control analystFiber Machine Tender Family Medicine 07/27/22 [place] [address] [place], [place] [address] [phone] Cardiology 12/03/22 Mobile Service Rv Technician Relationship Specialty Start Date End Date Mark Ramirez MD [address] [place] [address] PCP - General Family Medicine 12/20/14 Luz Mac, project control analystFiber Machine Tender Family Medicine 07/27/22 [place] [address] [place], [place] [address] [phone] Cardiology 12/03/22 Mobile Service Rv Technician Relationship Specialty Start Date End Date Mark Ramirez MD [address] [place] [address] PCP - General Family Medicine 12/20/14 Luz Mac, project control analystFiber Machine Tender Family Medicine 07/27/22 [place] [address] [place], [place] [address] [phone] Cardiology 12/03/22 Mobile Service Rv Technician Relationship Specialty Start Date End Date Mark Ramirez MD [address] [place] [address] PCP - General Family Medicine 12/20/14 Luz Mac, project control analystFiber Machine Tender Family Medicine 07/27/22 Mobile Service Rv Technician Relationship Specialty Start Date End Date Mark Ramirez MD [address] [place], [place] [address] PCP - General Family Medicine 12/20/14 Luz Mac, project control analystFiber Machine Tender Family Medicine 07/27/22 [place] [address] [place], [place] [id number] [phone] Cardiology 12/03/22 Mobile Service Rv Technician Relationship Specialty Start Date End Date Mark Ramirez MD [address] [place] [address] PCP - General Family Medicine 12/20/14 Luz Mac project control analystFiber Machine Tender Family Medicine 07/27/22 [place] [address] [place], [place] [address] [phone] Cardiology 12/03/22 Mobile Service Rv Technician Relationship Specialty Start Date End Date Mark Ramirez MD [address] [place] [address] PCP - General Family Medicine 12/20/14 Luz Mac project control analystFiber Machine Tender Family Medicine 07/27/22 [place] [address] [place], [place] 9[address] [phone] Cardiology 12/03/22 Mobile Service Rv Technician Relationship Specialty Start Date End Date Mark Ramirez MD [address] [place] [address] PCP - General Family Medicine 12/20/14 Luz Mac, project control analystFiber Machine Tender Family Medicine 07/27/22 Danna Gomez MD [place], [place] [id number] [phone] Cardiology 12/03/22 Mobile Service Rv Technician Relationship Specialty Start Date End Date Mark Ramirez MD [address] [place] [address] PCP - General Family Medicine 12/20/14 Luz Mac RN Fiber Machine Tender Family Medicine 07/27/22 [place] [address] Cardiology 12/03/22 Mobile Service Rv Technician Relationship Specialty Start Date End Date Mark Ramirez MD [address] [place] [address] PCP - General Family Medicine 12/20/14 Luz Mac project control analystFiber Machine Tender Family Medicine 07/27/22 Danna Gomez MD [place], [place] [id number] [phone] Cardiology 12/03/22 Mobile Service Rv Technician Relationship Specialty Start Date End Date Mark Ramirez MD [address] [place] [address] PCP - General Family Medicine 12/20/14 Luz Mac project control analystFiber Machine Tender Family Medicine 07/27/22 Danna Gomez MD [place], [place] [id number] [phone] Cardiology 12/03/22 Mobile Service Rv Technician Relationship Specialty Start Date End Date Mark Ramirez MD [address] [place] [address] PCP - General Family Medicine 12/20/14 Luz Mac, project control analystFiber Machine Tender Family Medicine 07/27/22 [place] [address] [place] [address] Cardiology 12/03/22 Mobile Service Rv Technician Relationship Specialty Start Date End Date Mark Ramirez MD [address] [place] [address] PCP - General Family Medicine 12/20/14 Luz Mac, project control analystFiber Machine Tender Family Medicine 07/27/22 [place] [address] [place] [address] Cardiology 12/03/22 Mobile Service Rv Technician Relationship Specialty Start Date End Date Mark Ramirez MD [address] [place] [address] PCP - General Family Medicine 12/20/14 Luz Mac, project control analystFiber Machine Tender Family Medicine 07/27/22 [place] [address] [place] [address] Cardiology 12/03/22 Mobile Service Rv Technician Relationship Specialty Start Date End Date Mark Rmairez MD [address] [place] [address] PCP - General Family Medicine 12/20/14 Luz Mac, project control analystFiber Machine Tender Family Medicine 07/27/22 [place] [address] [place] [address] Cardiology 12/03/22 Mobile Service Rv Technician Relationship Specialty Start Date End Date Mark Ramirez MD [address] [facility] [place] [address] PCP - General Family Medicine 12/20/14 Luz Mac, project control analystFiber Machine Tender Family Medicine 07/27/22 Mobile Service Rv Technician Relationship Specialty Start Date End Date Mark Ramirez MD [address] [facility] [place] [address] PCP - General Family Medicine 12/20/14 Luz Mac, project control analystFiber Machine Tender Family Medicine 07/27/22 Mobile Service Rv Technician Relationship Specialty Start Date End Date Mark Ramirez MD [address] [place] [place] [address] PCP - General Family Medicine 12/20/14 Mobile Service Rv Technician Relationship Specialty Start Date End Date Mark Ramirez MD [address] [place] [place] [address] PCP - General Family Medicine 12/20/14 Mobile Service Rv Technician Relationship Specialty Start Date End Date Mark Ramirez MD [address] [place] [place] [address] PCP - General Family Medicine 12/20/14 Mobile Service Rv Technician Relationship Specialty Start Date End Date Mark Ramirez MD [address] [place] [address] PCP - General Family Medicine 12/20/14 Mobile Service Rv Technician Relationship Specialty Start Date End Date Mark Ramirez MD [address] [place] [address] PCP - General Family Medicine 12/20/14 Luz Mac, project control analystFiber Machine Tender Family Medicine 07/27/22 Danna Gomez MD [place], [place] 1937020 [phone] Cardiology 12/03/22 Mobile Service Rv Technician Relationship Specialty Start Date End Date Mark Ramirez MD [address] [place] [address] PCP - General Family Medicine 12/20/14 Luz Mac project control analystFiber Machine Tender Family Medicine 07/27/22 [place] [address] [place], [place] [id number] [phone] Cardiology 12/03/22 Mobile Service Rv Technician Relationship Specialty Start Date End Date Mark Ramirez MD [address] [place] [address] PCP - General Family Medicine 12/20/14 Luz Mac project control analystFiber Machine Tender Family Medicine 07/27/22 [place] [address] [place], [place] [id number] [phone] Cardiology 12/03/22 Mobile Service Rv Technician Relationship Specialty Start Date End Date Mark Ramirez MD [address] [place] [address] PCP - General Family Medicine 12/20/14 Luz Mac project control analystFiber Machine Tender Family Medicine 07/27/22 [place] [address] Cardiology 12/03/22 Mobile Service Rv Technician Relationship Specialty Start Date End Date Mark Ramirez MD [address] [place] [address] PCP - General Family Medicine 12/20/14 Luz Mac, project control analystFiber Machine Tender Family Medicine 07/27/22 Danna Gomez MD [place], [place] 8395925 [phone] Cardiology 12/03/22 Mobile Service Rv Technician Relationship Specialty Start Date End Date Mark Ramirez MD [address] [place] [address] PCP - General Family Medicine 12/20/14 Luz Mac, project control analystFiber Machine Tender Family Medicine 07/27/22 [place] [address] Cardiology 12/03/22 Mobile Service Rv Technician Relationship Specialty Start Date End Date Mark Ramirez MD [address] [place] [address] PCP - General Family Medicine 12/20/14 Luz Mac, project control analystFiber Machine Tender Family Medicine 07/27/22 Danna Gomez MD [place], [place] 1298789 [phone] Cardiology 12/03/22 Mobile Service Rv Technician Relationship Specialty Start Date End Date Mark Ramirez MD [address] [place] [address] PCP - General Family Medicine 12/20/14 Luz Mac, project control analystFiber Machine Tender Family Medicine 07/27/22 [place] [address] Cardiology 12/03/22 Mobile Service Rv Technician Relationship Specialty Start Date End Date Mark Ramirez MD [address] [place] [address] PCP - General Family Medicine 12/20/14 Luz Mac, project control analystFiber Machine Tender Family Medicine 07/27/22 [place] [address] [place], [place] [id number] [phone] Cardiology 12/03/22 Mobile Service Rv Technician Relationship Specialty Start Date End Date Mark Ramirez MD [address] [place] [address] PCP - General Family Medicine 12/20/14 Luz Mac project control analystFiber Machine Tender Family Medicine 07/27/22 [place] [address] [place], [place] 3524780 [phone] Cardiology 12/03/22 Mobile Service Rv Technician Relationship Specialty Start Date End Date Mark Ramirez MD [address] [place] [address] PCP - General Family Medicine 12/20/14 Luz Mac, project control analystFiber Machine Tender Family Medicine 07/27/22 [place] [address] [place], [place] 2580375 [phone] Cardiology 12/03/22 Mobile Service Rv Technician Relationship Specialty Start Date End Date Mark Ramirez MD [address] [place] [address] PCP - General Family Medicine 12/20/14 Luz Mac, project control analystFiber Machine Tender Family Medicine 07/27/22 [place] [address] [facility] [place], [place] [address] [phone] Cardiology 12/03/22 Mobile Service Rv Technician Relationship Specialty Start Date End Date Mark Ramirez MD [address] [place] [address] PCP - General Family Medicine 12/20/14 Luz Mac project control analystFiber Machine Tender Family Medicine 07/27/22 [place] [address] [place], [place] 5630403 [phone] Cardiology 12/03/22 Migdalia Corley, GEOGRAPHY DEPARTMENT CHAIR.WATER PUMP INSTALLER [address] [place] [address] Skin Care Specialist Family Medicine 06/24/24 Mobile Service Rv Technician Relationship Specialty Start Date End Date Mark Ramirez MD [address] [place] [address] PCP - General Family Medicine 12/20/14 Luz Mac project control analystFiber Machine Tender Family Medicine 07/27/22 [place] [address] [place], [place] 9173800 [phone] Cardiology 12/03/22 Migdalia Corley, GEOGRAPHY DEPARTMENT CHAIR.WATER PUMP INSTALLER [address] [place] [address] Skin Care Specialist Family Medicine 06/24/24 Mobile Service Rv Technician Relationship Specialty Start Date End Date Mark Ramirez MD [address] [place] [address] PCP - General Family Medicine 12/20/14 Luz Mac RN Fiber Machine Tender Family Medicine 07/27/22 [place] [address] [place], [place] [phone] Cardiology 12/03/22 Migdalia Corley, GEOGRAPHY DEPARTMENT CHAIR.WATER PUMP INSTALLER [address] [place] [address] Skin Care Specialist Family Medicine 06/24/24 Vikram Leon GEOGRAPHY DEPARTMENT CHAIR.WATER PUMP INSTALLER [address] [place] [address] Skin Care Specialist [facility] 07/03/24 Mobile Service Rv Technician Relationship Specialty Start Date End Date Mark Ramirez MD [address] [place] [address] PCP - General Family Medicine 12/20/14 Luz Mac RN Fiber Machine Tender Family Medicine 07/27/22 [place] [address] [place] [place], [place] [phone] Cardiology 12/03/22 Migdalia Corley, GEOGRAPHY DEPARTMENT CHAIR.WATER PUMP INSTALLER [address] [place] [address] Skin Care Specialist Family Medicine 06/24/24 Vikram Leon GEOGRAPHY DEPARTMENT CHAIR.WATER PUMP INSTALLER [address] [place] [address] Skin Care Specialist Family Medicine 07/03/24 Mobile Service Rv Technician Relationship Specialty Start Date End Date Mark Ramirez MD [address] [place] [address] PCP - General Family Medicine 12/20/14 [place] [address] [place], [place] [phone] Cardiology 12/03/22 Migdalia Corley GEOGRAPHY DEPARTMENT CHAIR.WATER PUMP INSTALLER [address] [place] [address] Skin Care Specialist Family Medicine 06/24/24 Vikram Leon GEOGRAPHY DEPARTMENT CHAIR.WATER PUMP INSTALLER [address] [place] [address] Skin Care Specialist Family Medicine 07/03/24 Mobile Service Rv Technician Relationship Specialty Start Date End Date Mark Ramirez MD [address] [place] [address] PCP - General Family Medicine 12/20/14 [place] [address] [facility] [place], [place] [phone] Cardiology 12/03/22 Migdalia Corley, GEOGRAPHY DEPARTMENT CHAIR.WATER PUMP INSTALLER [address] [place] [address] Skin Care Specialist Family Medicine 06/24/24 Vikram Leon GEOGRAPHY DEPARTMENT CHAIR.WATER PUMP INSTALLER [address] [place] [address] Skin Care Specialist Family Medicine 07/03/24 Mobile Service Rv Technician Relationship Specialty Start Date End Date Mark Ramirez MD [address] [place] [address] PCP - General Family Medicine 12/20/14 [place] [address] [place], [place] [phone] Cardiology 12/03/22 Migdalia Corley APRN.WATER PUMP INSTALLER [address] [place], [place] [address] [phone] Skin Care Specialist [facility] 06/24/24 Vikram Leon APRN.WATER PUMP INSTALLER [address] [place] [address] Skin Care Specialist [facility] 07/03/24 Mobile Service Rv Technician Relationship Specialty Start Date End Date Mark Ramirez MD [address] [place], [place] 461807 [phone] PCP - General Family Medicine 12/20/14 [place] [address] [place], [place] [phone] Cardiology 12/03/22 Migdalia Corley APRN.WATER PUMP INSTALLER [address] [place], [place] 365172 [phone] [facility] 06/24/24 Vikram Leon, GEOGRAPHY DEPARTMENT CHAIR.WATER PUMP INSTALLER [address] [place] [address] [facility] Mobile Service Rv Technician Relationship Specialty Start Date End Date Mark Ramirez MD [address] [place] [address] PCP - General Family Medicine 12/20/14 Luz Mac, project control analystFiber Machine Tender Family Medicine 07/27/2207/20/24 [place] [address] [place], [place] 556[address] Cardiology 12/03/22 Migdalia Corley APRN.WATER PUMP INSTALLER [address] [place] [address] [facility] 06/[facility]/24 Vikram Leon APRN.WATER PUMP INSTALLER [address] [place] [address] [facility] 07/03/24 Mobile Service Rv Technician Relationship Specialty Start Date End Date Mark Ramirez MD [address] [place] [address] PCP - General Family Medicine 12/20/14 [place] [address] [place] [address] Cardiology 12/03/22 Migdalia Corley GEOGRAPHY DEPARTMENT CHAIR.WATER PUMP INSTALLER [address] [place] [address] [facility] 06/24/24 Vikram Leon APRN.WATER PUMP INSTALLER [address] [place] [address] [facility] 07/03/24 Mobile Service Rv Technician Relationship Specialty Start Date End Date Mark Ramirez MD [address] [place] [address] PCP - General Family Medicine 12/20/14 [place] [address] [place], [place] 8691421 [phone] Cardiology 12/03/22 Migdalia Corley GEOGRAPHY DEPARTMENT CHAIR.WATER PUMP INSTALLER [address] [place], [place] 7561126 Skin Care Specialist Family [facility] 06/24/24 Vikram Leon APRN.WATER PUMP INSTALLER [address] [place] [address] Skin Care Specialist Family [facility] 07/03/24 Mobile Service Rv Technician Relationship Specialty Start Date End Date Mark Ramirez MD [address] [place] [address] PCP - General Family Medicine 12/20/14 [place] [address] [place] [address] Cardiology 12/03/22 Migdalia Corley GEOGRAPHY DEPARTMENT CHAIR.WATER PUMP INSTALLER [address] [place] [address] Skin Care Specialist [facility] 06/24/24 Vikram Leon GEOGRAPHY DEPARTMENT CHAIR.WATER PUMP INSTALLER [address] [place] [address] [facility]/24 Mobile Service Rv Technician Relationship Specialty Start Date End Date Mark Ramirez MD [address] [place] [address] PCP - General Family Medicine 12/20/14 [place] [address] [place] [address] Cardiology 12/03/22 Vikram Leon APRN.WATER PUMP INSTALLER [address] [place] [address] Skin Care Specialist Family Medicine 07/03/24 Mobile Service Rv Technician Relationship Specialty Start Date End Date Mark Ramirez MD [address] [place] [address] PCP - General Family Medicine 12/20/14 [place] [address] [place], [place] 0596[address] Cardiology 12/03/22 Vikram Leon APRN.WATER PUMP INSTALLER [address] [place] [address] [facility] 07/03/24 Mobile Service Rv Technician Relationship Specialty Start Date End Date Mark Ramirez MD [address] [place], [place] 065261 PCP - General Family Medicine 12/20/14 [place] [address] [place], [place] [phone] Cardiology 12/03/22 Migdalia Corley APRN.WATER PUMP INSTALLER [address] [place] [address] [facility] 06/24/24 11/28/24 Vikram Leon APRN.WATER PUMP INSTALLER [address] [place], [place] 667[address] [facility] 07/03/24 Goals (unrecognized section and content) Goals may be documented in a n alternate section FOR RECORDS PERTAINING TO PATIENTS WHO ARE OR HAVE BEEN ENROLLED IN A CHEMICAL DEPENDENCY/SUBSTANCEABUSE PROGRAM, SOME INFORMATION MAY BE OMITTED. This clinical summary was aggregated from multiple sources. Caution should be exercised in using it in the provision of clinical care. This summary normalizes information from multiple sources, and as a consequence, information in this document may materially change the coding, format and clinical context of patient data. In addition, data may be omitted in some cases. CLINICAL DECISIONS SHOULD BE BASED ON THE PRIMARY CLINICAL RECORDS. [facility] [employer] [facility]. provides no warranty or guarantee of the accuracy or completeness of information in this document.
--- NOTE | 2025-02-22 20:44 | EDS_ITS ---
HPI History of Present Illness Chief Complaint: Upper Extremity Injury Narrative Narrative: Chief complaint and HPI: Right second finger injury. 69-year-old leg pain primarily male with past medical history of HLD, Hypothyroidism presents for evaluation of right second finger injury. Patient states prior to arrival he tripped over the lawnmower he was working on and fell. He states he does not remember the mechanism of injury but states he immediately had pain in the right second finger. States that he is unable to flex his finger. He denies pain in the other fingers, hand, wrist. Denies any numbness or tingling. Has not taken anything for the pain. Review of systems: See HPI Medications: As listed on the chart Allergies: As listed on the chart PFSH: Per chart Vital signs: As listed on the chart. Reviewed. Physical exam: Gen: A&O x3, NAD Head: Normocephalic, atraumatic Eyes: No sclera icterus, conjunctiva clear ENT: Moist mucous membranes, atraumatic Neck: Full range of motion CV: Regular rate Resp: Nonlabored respirations Musc: Full ROM of all the extremities including the right upper extremity except for the second finger-patient prefers the finger in extension-states he cannot actively flex his finger when I passively tried to flex his finger he endorses pain in the proximal phalanx, patient has tenderness to palpation of the proximal phalanx on the dorsal aspect, no obvious deformity, no ecchymosis/crepitus/erythema/warmth, flexor tendon nontender, no significant swelling, radial pulse +2, good capillary refill, sensation intact, compartments soft, the other fingers/hand/wrist nontender Skin: Warm, dry Neuro: Alert, oriented, grossly intact, sensation intact Psych: Cooperative, appropriate mood and affect [facility] Medical History High cholesterol Hypothyroidism Home Medications ?Medication ?Instructions ?Recorded ?Last Taken ?Type levothyroxine 175 mcg tablet 175 mcg PO DAILY 05/16/20 Unknown History atorvastatin 80 mg tablet 80 mg PO QDAY 07/04/24 Unkno wn History azithromycin 250 mg tablet See Rx Instructions PO .COM PLEX #6 07/04/24 Unknown Rx tabs ezetimibe 10 mg tablet 10 mg PO QDAY 07/04/24 Unkno wn History finasteride 5 mg tablet 5 mg PO QDAY 07/04/24 Unknow n History methylprednisolone 4 mg tablets in See Rx Instructions PO PER PKG DIR 07/04/24 Unknown Rx a dose pack (Medrol ([facility]man)) #21 tabs prasugrel HCl 10 mg tablet 10 mg PO QDAY 07/04/24 Unkn own History Allergy/AdvReac Type Severity Reaction Status Date / Time bee pollen Allergy Swelling Verified 02/22/25 20:12 Social History Smoking Status: Current every day smoker tobacco type: cigarettes EXAM Physical Exam Const Vital Signs: 02/22/25 20:11 Temperature 97.1 F L Temperature Source Temporal Pulse Rate 60 Respiratory Rate 18 Blood Pressure 135/86 H Blood Pressure Mean 102 Pulse Ox 97 Oxygen Delivery Method Room Air MDM MDM MDM Narrative Medical decision making narrative: 69-year-old leg pain primarily male with past medical history of HLD, Hypothyroidism presents for evaluation of right second finger injury. Patient states prior to arrival he tripped over the lawnmower he was working on and fell. He states he does not remember the mechanism of injury but states he immediately had pain in the right second finger. Right upper extremity unremarkable except for the second finger on the right hand. Patient prefers the finger in extension, states he cannot actively flex his finger, when I passively try to flex his finger he endorses pain in the proximal phalanx. Most of the tenderness to palpation is at the dorsal aspect of the proximal phalanx. Differential diagnosis includes but is not limited to fracture, dislocation, contusion, suspect less likely tendon injury. Patient offered pain medicine but declined. X-ray of the finger obtained. X-ray of the finger was personally viewed and interpreted by me, ED physician. Patient has a second digit PIP joint dislocation. Per radiology suspected displaced fracture. Using traction technique, patient's finger was reduced. He has full range of motion of the finger after reduction. He is neurovascularly intact. He can fully flex and extend his finger. Strength is intact in the finger. Will place finger splint. Follow-up with hand surgeon. Tylenol and Motrin as needed for pain. Ice for swelling. Patient stable to discharge home. He confirmed understanding the plan. Joint Reduction Indication: Right second finger dislocation Consent: Risks, benefits, and alternatives discussed with patient and consent obtained Procedure: The dislocation was reduced to the best of my abilities utilizing traction technique. Following reduction, immobilization was performed using a finger splint and the extremity's neurovascular status was re-checked and was unchanged from the pre-procedure exam. The patient tolerated the procedure without complications. Impression: 1. Right second finger closed dislocation 2. Right second finger closed fracture Discharge Plan Triage Chief Complaint: Upper Extremity Injury ED Provider: Saravanan Gramajo Dx/Rx/DC Orders Clinical Impression: Dislocation of finger, closed, Closed fracture of finger Instructions: ED Finger Dislocation, ED Fracture, Finger, Closed Prescriptions: No Action atorvastatin 80 mg tablet 80 mg PO QDAY prasugrel HCl 10 mg tablet 10 mg PO QDAY finasteride 5 mg tablet 5 mg PO QDAY ezetimibe 10 mg tablet 10 mg PO QDAY methylprednisolone [Medrol ([facility]man)] 4 mg tablets,dose pack See Rx Instructions PO PER PKG DIR Qty: 21 0RF Rx Instructions: PO PER PKG DIR azithromycin 250 mg tablet See Rx Instructions PO .COMPLEX Qty: 6 0RF Rx Instructions: For 250 mg dose pack: take 500 mg today (day 1), then 250 mg for 4 days (days 2-5) PO levothyroxine 175 MCG tablet 175 mcg PO DAILY Primary Care Provider: Onesimo Ramirez Referrals: Onesimo Ramirez MD [Primary Care Provider] - 3-5 Days Jesús Morton MD [Med Staff - Active Staff] - 3-5 Days Activity Restrictions/Additional Instructions: Tylenol and ibuprofen as needed for pain. Ice for swelling. Splint must remain on at all times and cannot get wet. Follow-up with Dr. Morton. Return back to ED if symptoms change or worsen. Nonweightbearing to the finger. Print Language: French Disposition Disposition: Home, Self Care Discharge Date/Time: 02/22/25 21:33
[2025-02-22 21:32] VITALS: BP 141/76; PULSE 98; RESP 14; TEMP 36.6; O2SAT 100
== END 2025-02-22 21:33 | disposition home or self-care (01) ==
PROVIDERS: Emergency Provider Surgery; PCP Family Medicine; Visit Provider Surgery
DX: S62.600A Fracture of unspecified phalanx of right index finger, initial encounter for closed fracture (principal); F17.210 Nicotine dependence, cigarettes, uncomplicated; W01.0XXA Fall on same level from slipping, tripping and stumbling without subsequent striking against object, initial encounter
CPT/HCPCS: 73140; 99283

== ENCOUNTER 2025-03-14 07:30 | Outpatient (RCR) | payer MEDICARE, BC, SELFPAY ==
--- NOTE | 2025-02-27 08:19 | HP.OTEVAL_ITS ---
Patient's Visit Information Visit Information Visit Information: IGNACIO PARRY is a 69 year old M, referred to Occupational Therapy by Dr. Jesús Morton MD, with a diagnosis of Right IF closed fx phalanx. Date of Evaluation: 02/26/25 Occupational Therapist: Ashley Echols, OTR/Melissa, CHT Subjective Subjective: This 69 year old male was seen for OT eval with dx closed fx of IF right. Pt states he took a fall on 02/22/25 and caught his finger in the hand held leaf blower. pt states he has pain with ROM finger in swollen. 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 Pain right IF: Current Pain Intensity: 4 Pain Intensity Range: 0 and 4 ROM MP: right IF 0/70 left WNL PIP: right IF 0/50 left 0/105 ROM Comments: pt demo with limited right IF PIP motion Strength Strength Comments: will test later date Edema PIP: right IF 8.0 left 7.5 Sensation Sensation Comments: denies Quick DASH-Disab of Arm,Shoulder& Hand Quick DASH Score: 19.6425 Goals Goal:ROM equal to unaffected hand: Yes Goal:Behavioral Health Case Manager/Pinch strength at least 75% of unaffected hand: Yes Comment: will not test until week 6 Goal:No pain with affected hand use: Yes Goal:PIP Circumferences equal to unaffected hand: Yes Goal:Full use of affected hand in daily activities including work: Yes Rehabilitation General Assessment: pt arrives 4 days from DOI demo with swelling, pain and limited ROM. pt states due to this injury he is limited with daily tasks. pt would benefit from skilled OT services 1x week for 8 weeks to improve pts motion, ed. regarding dx and return pt to his PLOF. Today therapist ed. pt on light ROM of IF ( hook fist, straight fist and full composite fist) ed. to initiate without increase in pain. therapist ed. pt on coband for edema control and use of mabel tape to support IF while at work. pt demo understanding and agree to POC. Rehabilitation Potential: Good Anticipated Interventions Anticipated Interventions: A/AAROM/PROM, Strengthening, Edema Control, Modalities, Orthoses, Joint Protection/Energy Conservation, Ergonomic Education, Fine Motor Coord/Jc, Education re assistive Equipment, Education re Diagnosis and Home Program Visit Plan Frequency: 1x/Week Duration: 2 Months TEXT: Thank you for the opportunity to evaluate your patient. For Medicare and Medicare HMO plans, please review the plan of care and approve it. It will need to be FAXED BACK to us at [phone] for Medicare purposes. Please let me know if there are questions or concerns regarding this plan of care. Physician Signature: Date:
== END 2025-03-14 19:00 | disposition home or self-care (01) ==
LOC: OT 07:30
PROVIDERS: PCP Family Medicine; Referring Provider Surgery Plastic and Reconstructive Surgery; Visit Provider Surgery Plastic and Reconstructive Surgery
DX: S62.609D Fracture of unspecified phalanx of unspecified finger, subsequent encounter for fracture with routine healing (principal); S63.259D Unspecified dislocation of unspecified finger, subsequent encounter
CPT/HCPCS: 97140; 97166; 97530